=== PATIENT | female | born 1955 | race Caucasian/White ===

== ENCOUNTER → 2017-08-17 | Outpatient (CLI) | payer OTHER ==
[~2017-08-17] MED LIST: ATEN-173 PO; ATV/1 PO; CALCTAB5 PO; CHOL100010 PO; MULT-506 PO; OMEP40CA PO; SERT-234 PO
--- NOTE | 2017-08-18 13:28 | MAMMOGRAPHY REPORT ---
BILATERAL DIGITAL SCREENING MAMMOGRAM TOMOSYNTHESIS WITH CAD: 08/17/2017 CLINICAL HISTORY: Routine screening. Patient has no complaints. TECHNIQUE: Breast tomosynthesis in addition to standard 2D mammography was performed. Current study was also evaluated with a Computer Aided Detection (CAD) system. COMPARISON: Comparison is made to exams dated: 11/16/2014 mammogram, 04/29/2012 mammogram, 11/01/2010 m ammogram - [facility], 10/27/2008, 07/28/2006, and 09/11/1999 mammogram - [facility]. BREAST COMPOSITION: The tissue of both breasts is heterogeneously dense, which may obscure small mas ses. FINDINGS: There is a small grouping of microcalcifications with associated nodularity in the 11:00 m iddle one third of the right breast, for which additional spot magnification views and possible ultra sound is recommended. An 11 mm focal asymmetry in the upper outer posterior right breast is stable dating back to at least 10/27/2008, therefore likely benign. No other suspicious mass, architectural distortion or cluster of microcalcifications is seen. IMPRESSION: ACR BI-RADS CATEGORY 0: INCOMPLETE EVALUATION: NEED ADDITIONAL IMAGING EVALUATION The small grouping of microcalcifications and associated nodularity in the 11:00 middle one third of the right breast needs additional imaging evaluation. The patient will be called to schedule an appointment. Approximately 10% of breast cancers are not detected with mammography. A negative mammographic report should not delay biopsy if a clinically suggestive mass is present. Tasha De Souza M.D. ay/:08/17/2017 16:43:46 Dental Assisting Instructor: Hannah ROSEN(Simran)(M), [facility] letter sent: Addl Imaging 0 BI-RADS Code: ACR BI-RADS Category 0: Incomplete Evaluation: Need Additional Imaging Evaluation
== END | disposition home or self-care (01) ==
LOC: C.MAMM 14:54
PROVIDERS: ATTEND Family Medicine
DX: Z12.31 Encounter for screening mammogram for malignant neoplasm of breast (principal); R92.0 Mammographic microcalcification found on diagnostic imaging of breast; N63.11 Unspecified lump in the right breast, upper outer quadrant

== ENCOUNTER → 2017-08-25 | Outpatient (CLI) | payer OTHER ==
--- NOTE | 2017-08-26 15:25 | MAMMOGRAPHY REPORT ---
UNILATERAL RIGHT DIGITAL DIAGNOSTIC MAMMOGRAM AND TARGETED RIGHT ULTRASOUND: 08/25/2017 CLINICAL HISTORY: 62-year-old woman called back from screening mammography for a small grouping of mi crocalcifications and associated nodularity in the 12:00 right breast. TECHNIQUE: Spot magnification right CC and ML views were obtained. COMPARISON: Comparison is made to exams dated: 08/17/2017 mammogram, 11/16/2014 mammogram, 04/29/2012 ma mmogram, 11/01/2010 mammogram, 06/27/2009 mammogram - [facility], and 11/16/2008. BREAST COMPOSITION: There are scattered areas of fibroglandular density in the right breast. FINDINGS: There is a circumscribed 3.5 mm round mass with associated grouped amorphous microcalcific ations along the inferolateral aspect of the mass. No architectural distortion appreciated. The sara rocalcifications are new comparing to the most recent prior available mammogram which was performed i 2014. No other suspicious grouping or cluster of calcifications identified in the visualized right breast. Further evaluation with ultrasound was performed. Targeted ultrasound was performed in the superior right breast. In the 11:30 axis, 2 cm from the nip ple, there is a round circumscribed hypoechoic solid versus cystic mass with internal punctate reflec tors most likely representing microcalcifications. It measures 3.7 mm in diameter and this is though t to correlate with the mammographic mass with calcifications. Definitive characterization with an u ltrasound-guided core needle biopsy is recommended. No other suspicious mass, architectural distortion or cluster of microcalcifications is seen. IMPRESSION: ACR BI-RADS CATEGORY 4: SUSPICIOUS, TARGETED ULTRASOUND ACR BI-RADS CATEGORY 4: SUSPICIO US 1. Ultrasound-guided core needle biopsy is recommended for a small round 3.7 mm mass with associated grouped amorphous microcalcification in the 11:30 right breast, 2 cm from the nipple. This correlat es with the mammographic calcifications and associated nodularity. These results and recommendations were discussed with the patient at the time of the exam. She tenta tively scheduled a biopsy prior to leaving our department. Approximately 10% of breast cancers are not detected with mammography. A negative mammographic report should not delay biopsy if a clinically suggestive mass is present. Tasha De Souza M.D. ay/:08/25/2017 14:32:15 Boat Officer: Hannah Araiza, [facility] letter sent: Abnormal 10/15 BI-RADS Code: ACR BI-RADS Category 4: Suspicious Ultrasound BI-RADS: ACR BI-RADS Category 4: Suspici ous
== END | disposition home or self-care (01) ==
LOC: C.MAMM 13:56
PROVIDERS: ATTEND Family Medicine
DX: R92.0 Mammographic microcalcification found on diagnostic imaging of breast (principal); N63.10 Unspecified lump in the right breast, unspecified quadrant

== ENCOUNTER → 2017-09-17 | Outpatient (CLI) | payer OTHER ==
--- NOTE | 2017-09-17 11:28 | Discharge Instructions ---
Discharge Instructions Procedure Procedure Date: Sep 17, 2017. Reason for visit: Right Mass W/Calcs. Discharge Discharge Date: Sep 17, 2017. Discharge Diagnosis: status post breast biopsy Instructions Activity Recommendations: Additional Limitations (see below) Return to School/Work: no limitations Recommended Home Diet: No Limitations Provider Instructions: ACTIVITY RECOMMENDATIONS: * No lifting, pushing, pulling or exercising the affected side for three days. RETURN TO SCHOOL/WORK: * You may return to work/school after the procedure, but do not perform any strenuous activities for 24 to 48 hours. MEDICATIONS: * Tylenol (two 325 mg) every four to six hours if needed for mild pain (if not allergic to Tylenol). DIET: * Resume previous diet. SPECIAL CARE INSTRUCTIONS: * Keep biopsy site dry for 24 hours. May shower after 24 hours, but do not soak (bathe) incision. * May remove Tegaderm (plastic patch) tomorrow AFTER showering. * Leave the steri-strips on for one week. Allow the steri-strips to fall off by themselves. If not off after one week, you may remove them. You may place a Bandaid crosswise over the strips, if desired. * Apply ice 10 minutes on and 10 minutes off as needed. * Wear a bra at bedtime to sleep more comfortably for 2-3 days. * Your referring physician should have the results after approximately 5 to 7 business days. * Call for unusual bleeding, fever, drainage, etc or if you have any questions call during normal business hours or after hours call Dr Mckeon, . FOLLOW UP VISIT: Follow-up with Referring Physician as scheduled. Allergies Coded Allergies: No Known Allergies (Unverified , 11/15/15) Mukul Neff Recommendations: Call your doctor if: * Temperature above 101 degrees * Pain not relieved by pain medicine ordered * There is increased drainage or redness from any incision * You have any unanswered questions or concerns. Your Doctors Instructions noted above were prepared by provider Lucy Mckeon. Patient Signature Section: Patient Instructions Signature Page Malika Gregory Patient (or Guardian) Signature/Date: I have read and understand the instructions given to me by my caregivers. Caregiver/RN/Doctor Signature/Date: The above-named patient and/or guardian has received patient instructions on this date. + Original Patient Signature Page (only) stays with chart. Please make copy for patient.
--- NOTE | 2017-09-17 15:06 | MAMMOGRAPHY REPORT ---
ULTRASOUND GUIDED BIOPSY RIGHT BREAST: 09/17/2017 CLINICAL HISTORY: Right 1130 breast mass with associated calcifications. PATIENT CONSENT: The procedure, risks and benefits were discussed with the patient and informed writt en consent was obtained. A timeout was performed immediately prior to the procedure. PROCEDURE DESCRIPTION: With ultrasound guidance, aseptic technique, and lidocaine as the local anesth etic (1% lidocaine to anesthetize the skin and 1% lidocaine with epinephrine to anesthetize the deepe r tissues), an attempt was made to aspirate the mass in the right 1130 breast. However, it would not completely aspirate, therefore, the decision was made to biopsy the mass. With ultrasound guidance, the mass of concern in the right 11:30 breast was sampled 3 times with a 14-gauge Achieve biopsy need le. Immediately thereafter, with ultrasound guidance, aseptic technique, and lidocaine as the local a nesthetic, a metallic localizer clip was placed at the biopsy site. Direct pressure was applied to t he site immediately post procedure and hemostasis was achieved. Postprocedure unilateral mammograms were performed to confirm placement of the clip in the expected location of the breast mass. The braxton ent tolerated the procedure without complication. She was given wound care instructions. A radiogra ph was performed of the biopsy specimens, which shows a few calcifications to be present within the s pecimens. The specimens were sent to pathology for analysis. COMPARISON: Comparison is made to exams dated: 08/25/2017 ultrasound, 08/17/2017 mammogram, 11/16/2014 ma mmogram, and 04/29/2012 mammogram - [facility]. IMPRESSION: ULTRASOUND GUIDED BIOPSY Ultrasound-guided core needle biopsy of the right 1130 breast mass with associated calcifications, wi th clip placement. The patient will receive pathology results from her referring provider. Lucy Mckeon M.D. /:09/17/2017 11:32:03 Practice Assistant: Hannah MACHADO)(M), [facility]
--- NOTE | 2017-09-17 15:06 | MAMMOGRAPHY REPORT ---
UNILATERAL RIGHT DIGITAL DIAGNOSTIC MAMMOGRAM TOMOSYNTHESIS: 09/17/2017 CLINICAL HISTORY: Status post right breast biopsy. TECHNIQUE: Breast tomosynthesis in addition to standard 2D mammography was performed. Postprocedura l right CC and ML tomosynthesis images were obtained. COMPARISON: Comparison is made to exams dated: 08/25/2017 mammogram, 08/25/2017 ultrasound, 08/17/2017 m ammogram, 11/16/2014 mammogram, 04/29/2012 mammogram, and 11/01/2010 mammogram - [facility]. BREAST COMPOSITION: There are scattered areas of fibroglandular density in the right breast. FINDINGS: A new biopsy marker clip is seen at the site of the biopsied mass and calcifications in the right 12:00 breast. No significant postbiopsy hematoma is seen. IMPRESSION: POST PROCEDURE IMAGING FOR MARKER PLACEMENT New biopsy marker clip status post right breast biopsy. Pathology results are pending. Approximately 10% of breast cancers are not detected with mammography. A negative mammographic report should not delay biopsy if a clinically suggestive mass is present. Lucy Mckeon M.D. ah/:09/17/2017 11:41:21 Lifestyle Director: Hannah Romero RT(R)(M), [facility] BI-RADS Code: Post Procedure Imaging For Marker Placement
== END | disposition home or self-care (01) ==
LOC: C.MAMM 10:50
PROVIDERS: ATTEND Family Medicine
DX: R92.0 Mammographic microcalcification found on diagnostic imaging of breast (principal); N63.10 Unspecified lump in the right breast, unspecified quadrant

== ENCOUNTER → 2017-11-20 | Day surgery (SDC) | payer OTHER ==
[2017-11-17 15:59] VITALS: Ht 162.6 cm; Wt 70.5 kg
[~2017-11-20] VITALS: Ht 162.6 cm; Wt 70.5 kg
[~2017-11-20] MED LIST changes: +CALC600T9 PO; -CALCTAB5 PO; +CHOL1000 PO; -CHOL100010 PO; +DEXAMETHASONE SOD INJ 4 MG/ML VIAL ONE; +IBUP-1050 PO; +LIDOCAINE HCL 1% MPF 5 ML VIAL ONE; +OMEP-334 PO; -OMEP40CA PO; +RANI300T2 PO; -SERT-234 PO
--- NOTE | 2017-11-20 07:29 | History & Physical Bridge - SC ---
H&P Re-Evaluation Bridge Note: I have examined the patient, reviewed the History & Physical and in the interval since the performance of the History & Physical I have noted the following changes of clinical significance: No changes noted
--- NOTE | 2017-11-20 07:54 | [facility] Post Operative Brief Note ---
Immediate Operative Summary Operative Date November 20, 2017. Pre-Operative Diagnosis SPINAL STENOSIS Post-Operative Diagnosis SPINAL STENOSIS Procedure(s) Performed L2-3, L3-[address] LAKHANI Inspector Purchased Parts Surgeon(s) none Estimated Blood Loss 0 Findings Consistent with Post-Op Diagnosis Specimens none Anesthesia Type Local Complication(s) none
[2017-11-20 07:56] VITALS: TEMP 36.8
--- NOTE | 2017-11-20 07:56 | Discharge Instructions ---
Discharge Instructions Date of Service November 20, 2017. Admission Reason for Admission: Spinal Stenosis Discharge Discharge Diagnosis / Problem: stenosis Discharge Goals Goal(s): Improve function Activity Recommendations Activity Limitations: resume your previous activity . Current Hospital Diet Patient's current hospital diet: Discharge Diet Recommended Diet: Regular Diet Procedures Procedures Performed: L2-3, L3-4 EPIDURAL STEROID INJECTION Pending Studies Studies pending at discharge: no Medical Emergencies . Who to Call and When: Medical Emergencies: If at any time you feel your situation is an emergency, please call 911 immediately. . Non-Emergent Contact Non-Emergency issues call your: Primary Care Provider . "Provider Documentation" section prepared by Matthew Hensley. .
--- NOTE | 2017-11-20 07:57 | Discharge Instructions-SurgCtr ---
Discharge Instructions Date of Service November 20, 2017. Visit Reason for Visit: Spinal Stenosis Discharge Discharge Diagnosis / Problem: same Discharge Goals Goal(s): Improve function Medications Stopped Medications Name(s): Ibuprofen, last dose 11/19/17 Activity Recommendations Activity Limitations: as noted below Lifting Limitations: until after follow-up appointment Exercise/Sports Limitations: until after follow-up appointment Anesthesia . Post Anesthesia Instructions: If you have had General Anesthesia or IV Sedation: * Do not drive today. * Resume driving when surgeon permits. * Do not make important decisions or sign legal documents today. * Call surgeon for: 1. Temperature elevations greater than 101 degrees F. 2. Uncontrollable pain. 3. Excessive bleeding. 4. Persistent nausea and vomiting. 5. Medication intolerance (nausea, vomiting or rash). * For nausea and vomiting use only clear liquids such as: tea, soda, bouillon until nausea subsides, then gradually increase diet as tolerated. * If you have any concerns or questions, call your surgeon's office. If physician is unavailable and it is an emergency, call 911 or go to the nearest emergency room. . Diet Recommendations Home Diet: no limitations Procedures Procedures Performed: L2-3, L3-4 EPIDURAL STEROID INJECTION Pending Studies Studies pending at discharge: no Medical Emergencies . Who to Call and When: Medical Emergencies: If at any time you feel your situation is an emergency, please call 911 immediately. . Non-Emergent Contact Non-Emergency issues call your: Primary Care Provider . . "Provider Documentation" section prepared by Matthew Hensley. .
[2017-11-20 08:19] VITALS: BP 134/84; PULSE 73; O2SAT 95
--- NOTE | 2017-11-20 08:35 | OPERATIVE REPORT ---
DATE OF OPERATION: 11/20/2017 PREOPERATIVE DIAGNOSIS: Spinal stenosis, L2-L3, L3-L4, lumbar. POSTOPERATIVE DIAGNOSIS: Same. PROCEDURE: Included epidural steroid, L3-L4, L4-L5, lumbar. SURGEON: Matthew Hensley DO. COMPLICATIONS: Zero. BLOOD LOSS: Zero. DESCRIPTION OF PROCEDURE: The patient was taken to the minor procedure room, placed prone, prepped and draped sterilely. A 22-gauge spinal Tuohy needle advanced to the epidural space at L2-L3, L3-L4, use a volume acceptance technique. 1 mL of dexamethasone injected to each level without incident. There were no complications. I attest to the content of the Intraoperative Record and any orders documented therein. Any exception s are noted below.
== END | disposition home or self-care (01) ==
LOC: X.SURG 06:31
PROVIDERS: ATTEND Orthopaedic Surgery Orthopaedic Surgery of the Spine
DX: M48.061 Spinal stenosis, lumbar region without neurogenic claudication (principal); E78.00 Pure hypercholesterolemia, unspecified; I10 Essential (primary) hypertension; K76.0 Fatty (change of) liver, not elsewhere classified; F17.200 Nicotine dependence, unspecified, uncomplicated

== ENCOUNTER 2020-01-24 16:36 | Inpatient (IN) ==
--- OUTSIDE RECORDS SUMMARY | 2020-01-24 16:39 | External Medical Summary | Continuity of Care Document ---
:1955 Author Name Vincent Lutz, Provider Address Unavailable Unavailable , Care Team Providers Name Role Phone Unavailable Unavailable Unavailable PCP, UNKNOWN Unavailable Unavailable Problems Active medical history not documented Allergies and Adverse Reactions Allergy history not documented Medications Medications not documented Procedures Procedures not documented Immunizations Immunizations not documented Plan of Treatment Planned Observations Planned Goals not documented Results No Known Results Results not documented
[2020-01-24] MEDS ORDERED: SODIUM CHLORIDE 0.9% 1000ML 1,000 ML IV SCH ×2 (18:15→19:08)
[2020-01-24] MEDS ORDERED: ACETAMINOPHEN 1,000 MG/100 ML VIAL IV STA (18:24)
--- NOTE | 2020-01-24 18:31 | Emergency Department Note ---
History of Present Illness General Chief complaint: Fever Stated complaint: SPIKING FEVER, ONGOING BLADDER ISSUES Time Seen by Provider: 01/24/20 18:06 History of Present Illness Provider complaint: Fever, cough, polyuria Onset (ago): hour(s) greater than 10 (Last night at 10 PM) Maximum Pain Intensity: 0 Current Pain Intensity: 0 Associated symptoms: + cough and + fever/chills 64-year-old female presents emergency department with fever. She reports she spiked a fever of 104 last night at 10 PM. She states that she has been having feelings of having to go urinate more often than normal. She denies any dysuria. She does report having a cough, but she states she smokes and she thinks it is her smoker's cough. She denies any loss of taste or smell. She denies any recent travel. Denies any headaches or neck pain. No abdominal sumit n. Patient is requesting to be tested for COVID-19. Patient states she had her last drink yesterday evening. Home Medications Home Medications Medication Instructions Recorded Confirmed Type atenolol 12.5 mg PO HS 04/02/18 01/24/20 History calcium carbonate-vitamin D3 1 tab PO HS 04/02/18 01/24/20 History cholecalciferol (vitamin D3) 1,000 units PO Q2D 04/02/18 01/24/20 History [Vitamin D3] lorazepam 0.5 - 1 mg PO TID PRN 04/02/18 01/24/20 History folic acid 1 mg PO DAILY #30 tab 04/13/18 01/24/20 Rx multivitamin 1 tab PO DAILY #30 tab 04/13/18 01/24/20 Rx thiamine HCl (vitamin B1) 100 mg PO DAILY #30 tab 04/13/18 01/24/20 Rx Rosacea Cream 1 applic TOPICAL DIRECTED 01/24/20 01/24/20 History albuterol sulfate 2 puff INHALATION DIRECTED PRN 01/24/20 01/24/20 History ibuprofen 200 mg PO Q6H PRN 01/24/20 01/24/20 History magnesium 125 mg PO DAILY 01/24/20 01/24/20 History Allergies Allergy/AdvReac Type Severity Reaction Status Date / Time No Known Allergies Allergy Verified 01/24/20 19:55 Past Med/Surg History Medical History AA (alcohol abuse) (Chronic) Alcohol use (Chronic) Anxiety (Chronic) Depression (Chronic) Diverticulosis of colon (Chronic) Fatty liver (Chronic) GERD (gastroesophageal reflux disease) (Chronic) Hx of ectopic Hyperlipidemia (Chronic) Hypertension (Chronic) Hypokalemia (Acute) Respiratory failure, acute Tobacco abuse (Chronic) Transaminitis (Resolved) Surgical History H/O wisdom tooth extraction (Chronic) H/O: (Chronic) History of oophorectomy, unilateral (Chronic) Hx of eye surgery Family History Other No significant family history Social History Preferred Language: Maldivian Communication Ability: Effective 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 Beliefs That Will Affect Care: None marital status: Single Current Living Situation: Alone Feels Safe at Home: Yes Smoking Status: Current every day smoker Tobacco Type: cigarettes ; Cigarettes Per Day: 20 ; Hx Alcohol Use: Yes Alcohol type: wine Hx Substance Use: No Review of Systems A total of 10 systems reviewed and were otherwise negative Physical Exam Vital Signs Vital Signs - 24 hr 01/24/20 16:45 01/24/20 18:40 01/24/20 19:14 Temperature 38 C H Temperature Source Oral Pulse Rate 120 H 106 H 105 H Pulse Rate [Left Finger] 104 H Pulse Rate from SpO2 Sensor 110 H Respiratory Rate 18 27 H 24 Respiratory Depth Normal Blood Pressure 106/67 90/69 L 115/67 Blood Pressure [Left Arm] 90/69 L Blood Pressure Mean 80 83 73 Blood Pressure Mean [Left Arm] 76 Pulse Oximetry 93 98 95 Oxygen Delivery Method Room Air Room Air Sepsis Recent Fever Within 48 Hours Yes Sepsis New/Unexplained Change in Mental Status No Sepsis Action Taken by Nursing No Action Required 01/24/20 19:32 01/24/20 19:51 01/24/20 20:00 Temperature 37.6 C H Temperature Source Oral Pulse Rate 115 H 108 H Pulse Rate [Left Finger] Pulse Rate from SpO2 Sensor 110 H 97 H Respiratory Rate 22 24 Respiratory Depth Blood Pressure 111/61 100/58 L Blood Pressure [Left Arm] Blood Pressure Mean 77 63 Blood Pressure Mean [Left Arm] Pulse Oximetry 95 93 Oxygen Delivery Method Room Air Room Air Sepsis Recent Fever Within 48 Hours Sepsis New/Unexplained Change in Mental Status Sepsis Action Taken by Nursing 01/24/20 20:10 Temperature Temperature Source Pulse Rate 105 H Pulse Rate [Left Finger] Pulse Rate from SpO2 Sensor 93 H Respiratory Rate 25 H Respiratory Depth Blood Pressure 106/61 Blood Pressure [Left Arm] Blood Pressure Mean 72 Blood Pressure Mean [Left Arm] Pulse Oximetry 93 Oxygen Delivery Method Room Air Sepsis Recent Fever Within 48 Hours Sepsis New/Unexplained Change in Mental Status Sepsis Action Taken by Nursing Physical Exam GENERAL: She is oriented to person, place, and time. She appears well-developed and well-nourished. She does not appear distressed. HENT: Exam performed. -Head: Normocephalic and atraumatic. -Right Ear: External ear normal. No mastoid tenderness. -Left Ear: External ear normal. No mastoid tenderness. -Mouth/Throat: The oropharynx is clear and moist. No trismus in the jaw. No dental abscesses or uvula swelling. No oropharyngeal exudate or tonsillar abscesses. EYES: Conjunctivae and EOM are normal. Pupils are equal, round, and reactive to light. Right eye exhibits no discharge. Left eye exhibits no discharge. No scleral icterus. NECK: Normal range of motion. Neck supple. No JVD present. No spinous process tenderness present. No carotid bruit present. No rigidity. No tracheal deviation and normal range of motion present. No Brudzinski's sign and no Kernig's sign noted. CV: Tachycardic rate, regular rhythm, normal heart sounds and intact distal pulses. There is no peripheral edema. Palpable radial pulses bue. PULM/CHEST: Effort normal and breath sounds normal. No respiratory distress. No stridor. She has no wheezes. She has no rales. -Chest Wall: She exhibits no tenderness. ABD: The abdomen is soft. Bowel sounds are normal. She has no distension. No mass is present. There is tenderness to palpation of the suprapubic area. There is no rebound, no guarding, no Fletcher's sign and no tenderness at McBurney's point. Rovsig negative MUSC/SKEL: Normal range of motion. There is no peripheral edema, tenderness or deformity. LYMPH: No cervical adenopathy. NEURO: She is alert and oriented to person, place, and time. She has normal strength. No cranial nerve deficit or sensory deficit. Coordination and gait normal. GCS eye subscore is 4. GCS verbal subscore is 5. GCS motor subscore is 6. Cerebellar tests wnl. SKIN: Skin is warm and dry. She is not diaphoretic. PSYCH: She has a normal mood and affect. Behavior is normal. Judgment and thought content normal. Course Course 1800: The patient was evaluated in room C10. A complete history and physical exam was performed. Cardiac monitoring: An order was placed for continuous cardiac monitoring. The monitor shows a rate of 110 with sinus rhythm Patient was seen with face montgomery, gloves, and N95. Patient placed in airborne precautions. EMR reviewed. Patient has a history of alcoholism, she states her last drink was last night. 2023: Vital signs stable status post 2 L fluid bolus and IV Tylenol. Labs show leukocytosis of 23.4. Neutrophils. Lactic acid within normal limits. Total bilirubin at baseline. AST at baseline. Procalcitonin elevated at 1.14. Urinalysis negative. Rapid bio fire test negative. Imaging shows no pneumonia. It does show acute on chronic diverticulitis. Patient will be treated with IV antibiotics Rocephin and Flagyl and plan on admission for her diverticulitis. Patient did have a COVID-19 swab sent however lab said they could not run a rapid on the patient giving her COVID score being less than 10. COVID PUI form was filled out by me so could be faxed over for send out testing. [facility]. Administered Medications Discontinued Medications Sodium Chloride (Nss 1000ml) 1,000 mls @ 999 mls/hr IV .Q1H1M FELIX Stop: 01/24/20 19:08 Last Infusion: 01/24/20 19:36 Dose: 0 mls/hr Documented by: [id number] Admin: 01/24/20 18:35 Dose: 999 mls/hr Documented by: [id number] Sodium Chloride (Nss 1000ml) 1,000 mls @ 999 mls/hr IV .Q1H1M FELIX Stop: 01/24/20 20:07 Last Infusion: 01/24/20 19:45 Dose: 0 mls/hr Documented by: [id number] Admin: 01/24/20 18:45 Dose: 999 mls/hr Documented by: [id number] Acetaminophen (Ofirmev) 1,000 mg in 100 mls @ 400 mls/hr IV NOW STA Stop: 01/24/20 18:38 Last Infusion: 01/24/20 19:02 Dose: 0 mls/hr Documented by: [id number] Admin: 01/24/20 18:47 Dose: 400 mls/hr Documented by: [id number] Medical Decision Making Laboratory Data Result diagrams: 01/24/20 18:24 01/24/20 18:24 Lab Results 01/24/20 01/24/20 01/24/20 Range/Units 18:24 18:24 18:24 WBC 23.44 H (4.8-10.8) K/uL RBC 4.05 L (4.2-5.4) M/uL Hgb 14.8 (12.0-16.0) g/dL Hct 43.5 (37-47) % MCV 107.4 H (80-100) fL MCH 36.5 H (25-34) pg MCHC 34.0 (32-36) g/dL RDW Std Deviation 50.2 H (36.4-46.3) fL RDW Coeff of Vale 12.7 (11.5-14.5) % Plt Count 145 (130-400) K/uL MPV 11.5 H (7.4-10.4) fL Immature Gran % (Auto) 0.6 % Neut % (Auto) 90.9 % Lymph % (Auto) 2.7 % Garrard % (Auto) 5.7 % Eos % (Auto) 0.0 % Baso % (Auto) 0.1 % Neut # (Auto) 21.31 H (1.4-6.5) K/uL Lymph # (Auto) 0.64 L (1.2-3.4) K/uL Garrard # (Auto) 1.33 H (0.11-0.59) K/uL Eos # (Auto) 0.00 (0-0.5) K/uL Baso # (Auto) 0.02 (0-0.2) K/uL Immature Gran # (Auto) 0.14 H (0.00-0.02) K/uL Sodium 138 (136-145) mmol/L Potassium 3.9 (3.5-5.1) mmol/L Chloride 104 (98-107) mmol/L Carbon Dioxide 26 (21-32) mmol/L Anion Gap 8.0 (3-11) BUN 20 H (7-18) mg/dl Creatinine 1.28 H (0.6-1.2) mg/dl Est Cr Clr Drug Dosing 41.6 ml/min Est GFR ( Amer) 50.4 Est GFR (Non-Af Amer) 43.5 BUN/Creatinine Ratio 15.7 (10-20) Glucose 155 H (70-99) mg/dl Lactate 1.4 (0.4-2.0) mmol/L Calcium 8.6 (8.5-10.1) mg/dl Magnesium 1.7 L (1.8-2.4) mg/dl Total Bilirubin 2.2 H (0.2-1) mg/dl AST 60 H (15-37) U/L ALT 67 (12-78) U/L Alkaline Phosphatase 138 H (45-117) U/L Troponin I < 0.015 (0-0.045) ng/ml Total Protein 8.2 (6.4-8.2) gm/dl Albumin 3.4 (3.4-5.0) gm/dl Globulin 4.8 H (2.5-4.0) gm/dl Albumin/Globulin Ratio 0.7 L (0.9-2) Procalcitonin (0-0.5) ng/ml Urine Color Urine Appearance (Clear) Urine pH (4.5-7.5) Ur Specific [place] (1.000-1.030) Urine Protein (Negative) Urine Glucose (UA) (Negative) Urine Ketones (Negative) Urine Blood (Negative) Urine Nitrite (Negative) Urine Bilirubin (Negative) Urine Urobilinogen (Negative) Ur Leukocyte Esterase (Negative) Adenovirus (PCR) (NotDetected) B. pertussis DNA (PCR) (NotDetected) B.parapertussis DNA PCR (NotDetected) C. pneumoniae DNA (PCR) (NotDetected) Coronavirus OC43 (PCR) (NotDetected) Coronavirus HKU1 (PCR) (NotDetected) Coronavirus 229E (PCR) (NotDetected) Coronavirus NL63 (PCR) (NotDetected) Human Metapneumovir PCR (NotDetected) Influenza Type A (PCR) (NotDetected) Influenza Type B (PCR) (NotDetected) M. pneumoniae (PCR) (NotDetected) Parainfluenza 1 (PCR) (NotDetected) Parainfluenza 2 (PCR) (NotDetected) Parainfluenza 3 (PCR) (NotDetected) Parainfluenza 4 (PCR) (NotDetected) RSV (PCR) (NotDetected) Entero/Rhino (PCR) (NotDetected) 01/24/20 01/24/20 01/24/20 Range/Units 18:24 18:49 19:52 WBC (4.8-10.8) K/uL RBC (4.2-5.4) M/uL Hgb (12.0-16.0) g/dL Hct (37-47) % MCV (80-100) fL MCH (25-34) pg MCHC (32-36) g/dL RDW Std Deviation (36.4-46.3) fL RDW Coeff of Vale (11.5-14.5) % Plt Count (130-400) K/uL MPV (7.4-10.4) fL Immature Gran % (Auto) % Neut % (Auto) % Lymph % (Auto) % Garrard % (Auto) % Eos % (Auto) % Baso % (Auto) % Neut # (Auto) (1.4-6.5) K/uL Lymph # (Auto) (1.2-3.4) K/uL Garrard # (Auto) (0.11-0.59) K/uL Eos # (Auto) (0-0.5) K/uL Baso # (Auto) (0-0.2) K/uL Immature Gran # (Auto) (0.00-0.02) K/uL Sodium (136-145) mmol/L Potassium (3.5-5.1) mmol/L Chloride (98-107) mmol/L Carbon Dioxide (21-32) mmol/L Anion Gap (3-11) BUN (7-18) mg/dl Creatinine (0.6-1.2) mg/dl Est Cr Clr Drug Dosing ml/min Est GFR ( Amer) Est GFR (Non-Af Amer) BUN/Creatinine Ratio (10-20) Glucose (70-99) mg/dl Lactate (0.4-2.0) mmol/L Calcium (8.5-10.1) mg/dl Magnesium (1.8-2.4) mg/dl Total Bilirubin (0.2-1) mg/dl AST (15-37) U/L ALT (12-78) U/L Alkaline Phosphatase (45-117) U/L Troponin I (0-0.045) ng/ml Total Protein (6.4-8.2) gm/dl Albumin (3.4-5.0) gm/dl Globulin (2.5-4.0) gm/dl Albumin/Globulin Ratio (0.9-2) Procalcitonin 1.14 H (0-0.5) ng/ml Urine Color Yellow Urine Appearance Clear (Clear) Urine pH 6.5 (4.5-7.5) Ur Specific [place] 1.005 (1.000-1.030) Urine Protein Negative (Negative) Urine Glucose (UA) Negative (Negative) Urine Ketones Negative (Negative) Urine Blood Negative (Negative) Urine Nitrite Negative (Negative) Urine Bilirubin Negative (Negative) Urine Urobilinogen Negative (Negative) Ur Leukocyte Esterase Negative (Negative) Adenovirus (PCR) Not Detected (NotDetected) B. pertussis DNA (PCR) Not Detected (NotDetected) B.parapertussis DNA PCR Not Detected (NotDetected) C. pneumoniae DNA (PCR) Not Detected (NotDetected) Coronavirus OC43 (PCR) Not Detected (NotDetected) Coronavirus HKU1 (PCR) Not Detected (NotDetected) Coronavirus 229E (PCR) Not Detected (NotDetected) Coronavirus NL63 (PCR) Not Detected (NotDetected) Human Metapneumovir PCR Not Detected (NotDetected) Influenza Type A (PCR) Not Detected (NotDetected) Influenza Type B (PCR) Not Detected (NotDetected) M. pneumoniae (PCR) Not Detected (NotDetected) Parainfluenza 1 (PCR) Not Detected (NotDetected) Parainfluenza 2 (PCR) Not Detected (NotDetected) Parainfluenza 3 (PCR) Not Detected (NotDetected) Parainfluenza 4 (PCR) Not Detected (NotDetected) RSV (PCR) Not Detected (NotDetected) Entero/Rhino (PCR) Not Detected (NotDetected) Imaging Data Radiologist's Impression: ABDOMEN AND PELVIS CT WITHOUT CONTRAST CT DOSE: 859.98 mGycm HISTORY: polyuria febrile TECHNIQUE: Multiaxial CT images of the abdomen and pelvis were performed without contrast. A dose lowering technique was utilized adhering to the principles of ALARA. COMPARISON STUDY: Abdomen and pelvis CT 04/01/2018. FINDINGS: Mild interstitial thickening at the lung bases. No pneumoperitoneum. No pneumatosis. No suspicious lytic or blastic osseous lesions. There is a new 3.8 cm hypodense lesion within the right hepatic dome. This is incompletely characterized on this noncontrast study. The unenhanced spleen, adrenal glands, pancreas, and gallbladder are unremarkable. No renal stones or hydronephrosis. Mild to moderate bilateral cortical renal scarring remains unchanged. Stable 3.3 cm hypodense lesion within the lower pole of the right kidney. This favors a cyst. Normal bladder. No pelvic free fluid. Abnormal appearance to the mid sigmoid colon which demonstrates mild thickening. Multiple colonic diverticula and minimal pericolonic fat stranding. This raises the possibility of an acute on chronic diverticulitis. However, an underlying colonic mass cannot be excluded. No change in the 4.7 cm cystic focus within the left adnexa. Small lipoma within the proximal sigmoid colon best in image 242. There is an larissa tional site of mild pericolonic fat stranding at the distal descending colon image 211. This may represent an additional site of mild acute diverticulitis. No evidence for bowel obstruction. No retroperitoneal lymphadenopathy. A few prominent ileocolic lymph nodes versus vascular structures best seen on image 199. This is improved in the interval. 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 This is best seen on image 220. IMPRESSION: 1. Abnormal appearance to the mid sigmoid colon which demonstrates mild wall thickening and minimal pericolonic fat stranding. Given the multiple colonic diverticula, this raises the possibility of an acute on chronic diverticulitis. However, an underlying colonic mass could also a similar appearance. Therefore, endoscopy is recommended for further evaluation. 2. Mild pericolonic fat stranding at the distal descending colon which may represent an additional site of mild acute diverticulitis. 3. There is a new 3.8 cm hypodense lesion within the right hepatic dome. This is incompletely characterized on this noncontrast study. Dedicated contrast- enhanced MRI is recommended to exclude the possibility of a hepatic metastatic lesion or abscess. 4. No change in the 4.7 cm cystic focus within the left adnexa. 5. 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 ACT 112: Negative or not required by law. Electronically signed by: Ray Galvan M.D. 01/24/2020 8:04 PM Dictated: 01/24/201945 Transcribed: 01/24/201945 XR chest 1V portable HISTORY: SEPSIS COMPARISON: Chest 04/04/2018. FINDINGS: The heart is normal in size. No pleural effusions. No pneumothorax. Mild diffuse interstitial thickening which is likely chronic. No new focal lung consolidations to suggest pneumonia. IMPRESSION: No significant change compared to the prior study. No acute process. ACT 112: Negative or not required by law. Electronically signed by: Ray Galvan M.D. 01/24/2020 7:35 PM Dictated: 01/24/201933 Transcribed: 01/24/201933 ECG Data Indication: + other (Fever/sepsis) Rate (beats per minute): 115 ECG Intervals/blocks: + Normal QRS, + Normal AL and + Normal QT-c ECG ST segments: + Normal ST segments MDM Narrative 1800: The patient was evaluated in room C10. A complete history and physical exam was performed. Cardiac monitoring: An order was placed for continuous cardiac monitoring. The monitor shows a rate of 110 with sinus rhythm Patient was seen with face montgomery, gloves, and N95. Patient placed in airborne precautions. EMR reviewed. Patient has a history of alcoholism, she states her last drink was last night. 2023: Vital signs stable status post 2 L fluid bolus and IV Tylenol. Labs show leukocytosis of 23.4. Neutrophils. Lactic acid within normal limits. Total bilirubin at baseline. AST at baseline. Procalcitonin elevated at 1.14. Urinalysis negative. Rapid bio fire test negative. Imaging shows no pneumonia. It does show acute on chronic diverticulitis. Patient will be treated with IV antibiotics Rocephin and Flagyl and plan on admission for her diverticulitis. Patient did have a COVID-19 swab sent however lab said they could not run a rapid on the patient giving her COVID score being less than 10. COVID PUI form was filled out by me so could be faxed over for send out testing. Dr. Leigh Fang hospitalist notified about the patient. Impression & Plan Diverticulitis Discharge Plan Visit Data Chief Complaint: Fever Stated Complaint: SPIKING FEVER, ONGOING BLADDER ISSUES ED Provider: Thom Chambers Discharge Problem: Diverticulitis Patient Disposition: Being Evaluated by Hospitalist Forms Stand Alone Forms: My [facility] Prescriptions Prescriptions: No Action atenolol 25 mg Tablet 12.5 mg PO HS RF: 0 lorazepam 1 mg Tablet 0.5 - 1 mg PO TID PRN (Reason: Anxiety) RF: 0 cholecalciferol (vitamin D3) [Vitamin D3] 1,000 unit Capsule 1,000 units PO Q2D RF: 0 calcium carbonate-vitamin D3 600 mg(1,500mg) -800 unit Tablet 1 tab PO HS RF: 0 multivitamin tablet 1 tab PO DAILY Qty: 30 RF: 0 thiamine HCl (vitamin B1) 100 mg tablet 100 mg PO DAILY Qty: 30 RF: 0 folic acid 1 mg tablet 1 mg PO DAILY Qty: 30 RF: 5 ibuprofen 200 mg Tablet 200 mg PO Q6H PRN (Reason: Fever Or Pain) RF: 0 magnesium 250 mg Tablet 125 mg PO DAILY RF: 0 albuterol sulfate 90 mcg/actuation Hfa Aerosol Inhaler 2 puff INHALATION DIRECTED PRN (Reason: Shortness Of Breath Or Wheezing) RF: 0 Rosacea Cream 1 applic topical DIRECTED RF: 0 Referrals Referrals: Ct Morales DO [Primary Care Provider] -
[2020-01-24 18:48] LABS: Hematocrit (blood only) 43.5 % (37-47); Hemoglobin 14.8 g/dL (12.0-16.0); Mean Corpuscular Hemoglobin 36.5 pg (25-34); Mean Corpuscular Volume 107.4 fL (80-100); Mean Platelet Volume 11.5 fL (7.4-10.4); Platelet Count 145 K/uL (130-400); RDW Coefficient of Variation 12.7 % (11.5-14.5); RDW Standard Deviation 50.2 fL (36.4-46.3); Red Blood Count 4.05 M/uL (4.2-5.4); White Blood Count 23.44 K/uL (4.8-10.8)
[2020-01-24 19:20] LABS: Basophils # (auto) 0.02 K/uL (0-0.2); Basophils % (auto) 0.1 %; Immature Granulocytes # (auto) 0.14 K/uL (0.00-0.02); Immature Granulocytes % (auto) 0.6 %; Lymphocytes # (auto) 0.64 K/uL (1.2-3.4); Lymphocytes % (auto) 2.7 %; Monocytes # (auto) 1.33 K/uL (0.11-0.59); Monocytes % (auto) 5.7 %; Neutrophils # (auto) 21.31 K/uL (1.4-6.5); Neutrophils % (auto) 90.9 %
[2020-01-24 19:27] LABS: Alanine Aminotransferase 67 U/L (12-78); Albumin Globulin Ratio 0.7 (0.9-2); Albumin Level 3.4 gm/dl (3.4-5.0); Alkaline Phosphatase 138 U/L (45-117); Aspartate Aminotransferase 60 U/L (15-37); BUN Creatinine Ratio 15.7 (10-20); Bilirubin,Total 2.2 mg/dl (0.2-1); Blood Urea Nitrogen 20 mg/dl (7-18); Calcium 8.6 mg/dl (8.5-10.1); Carbon Dioxide 26 mmol/L (21-32); Chloride 104 mmol/L (98-107); Creatinine Clr Calc Pharmacy 41.6 ml/min; Est GFR (African American) 50.4; Est GFR (Non-African American) 43.5; Globulin 4.8 gm/dl (2.5-4.0); Glucose 155 mg/dl (70-99); Magnesium 1.7 mg/dl (1.8-2.4); Potassium 3.9 mmol/L (3.5-5.1); Sodium 138 mmol/L (136-145); Total Protein 8.2 gm/dl (6.4-8.2); Troponin I < 0.015 ng/ml (0-0.045)
--- NOTE | 2020-01-24 19:37 | XRay Report ---
XR chest 1V portable HISTORY: SEPSIS COMPARISON: Chest 04/04/2018. FINDINGS: The heart is normal in size. No pleural effusions. No pneumothorax. Mild diffuse interstiti al thickening which is likely chronic. No new focal lung consolidations to suggest pneumonia. IMPRESSION: No significant change compared to the prior study. No acute process. ACT 112: Negative or not required by law. Electronically signed by: Ray Galvan M.D. 01/24/2020 7:35 PM
[2020-01-24 19:59] LABS: Adenovirus PCR Not Detected (NotDetected); Bordetella parapertussis PCR Not Detected (NotDetected); Bordetella pertussis PCR Not Detected (NotDetected); Chlamydia pneumoniae PCR Not Detected (NotDetected); Coronavirus 229E PCR Not Detected (NotDetected); Coronavirus HKU1 PCR Not Detected (NotDetected); Coronavirus NL63 PCR Not Detected (NotDetected); Coronavirus OC43PCR Not Detected (NotDetected); Human Metapneumovirus PCR Not Detected (NotDetected); Influenza A PCR Not Detected (NotDetected); Influenza B PCR Not Detected (NotDetected); Mycoplasma pneumoniae PCR Not Detected (NotDetected); Parainfluenza Virus 1 PCR Not Detected (NotDetected); Parainfluenza Virus 2 PCR Not Detected (NotDetected); Parainfluenza Virus 3 PCR Not Detected (NotDetected); Parainfluenza Virus 4 PCR Not Detected (NotDetected); Respiratory Syncytial VirusPCR Not Detected (NotDetected); Rhinovirus/Enterovirus PCR Not Detected (NotDetected)
[2020-01-24 20:01] LABS: Appearance Urine Clear (Clear); Bilirubin Urine Negative (Negative); Blood Urine Negative (Negative); Color Urine Yellow; Glucose Urine UA Negative (Negative); Ketones Urine Negative (Negative); Leukocyte Esterase Urine Negative (Negative); Nitrite Urine Negative (Negative); Protein Urine Negative (Negative); Specific Gravity Urine 1.005 (1.000-1.030); Urobilinogen Urine Negative (Negative); pH Urine 6.5 (4.5-7.5)
--- NOTE | 2020-01-24 20:05 | CT Scan Report ---
ABDOMEN AND PELVIS CT WITHOUT CONTRAST CT DOSE: 859.98 mGycm HISTORY: polyuria febrile TECHNIQUE: Multiaxial CT images of the abdomen and pelvis were performed without contrast. A dose lo wering technique was utilized adhering to the principles of ALARA. COMPARISON STUDY: Abdomen and pelvis CT 04/01/2018. FINDINGS: Mild interstitial thickening at the lung bases. No pneumoperitoneum. No pneumatosis. No mackenzie picious lytic or blastic osseous lesions. There is a new 3.8 cm hypodense lesion within the right hep atic dome. This is incompletely characterized on this noncontrast study. The unenhanced spleen, adren al glands, pancreas, and gallbladder are unremarkable. No renal stones or hydronephrosis. Mild to mod erate bilateral cortical renal scarring remains unchanged. Stable 3.3 cm hypodense lesion within the lower pole of the right kidney. This favors a cyst. Normal bladder. No pelvic free fluid. Abnormal ap pearance to the mid sigmoid colon which demonstrates mild thickening. Multiple colonic diverticula an d minimal pericolonic fat stranding. This raises the possibility of an acute on chronic diverticuliti s. However, an underlying colonic mass cannot be excluded. No change in the 4.7 cm cystic focus withi n the left adnexa. Small lipoma within the proximal sigmoid colon best in image 242. There is an larissa tional site of mild pericolonic fat stranding at the distal descending colon image 211. This may repr esent an additional site of mild acute diverticulitis. No evidence for bowel obstruction. No retroper itoneal lymphadenopathy. A few prominent ileocolic lymph nodes versus vascular structures best seen o n image 199. This is improved in the interval. There appears to be an enterocolic fistula at the prox imal sigmoid colon. This is best seen on image 220. IMPRESSION: 1. Abnormal appearance to the mid sigmoid colon which demonstrates mild wall thickening and minimal p ericolonic fat stranding. Given the multiple colonic diverticula, this raises the possibility of an a cute on chronic diverticulitis. However, an underlying colonic mass could also a similar appearance. Therefore, endoscopy is recommended for further evaluation. 2. Mild pericolonic fat stranding at the distal descending colon which may represent an additional si te of mild acute diverticulitis. 3. There is a new 3.8 cm hypodense lesion within the right hepatic dome. This is incompletely charact erized on this noncontrast study. Dedicated contrast-enhanced MRI is recommended to exclude the possi bility of a hepatic metastatic lesion or abscess. 4. No change in the 4.7 cm cystic focus within the left adnexa. 5. 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 ACT 112: Negative or not required by law. Electronically signed by: Ray Galvan M.D. 01/24/2020 8:04 PM
[2020-01-24] MEDS ORDERED: metroNIDAZOLE 500 MG/100 ML BAG IV STA (20:15)
[2020-01-24] MEDS ORDERED: cefTRIAXone SODIUM 1,000 MG/50 ML BAG IV STA (20:15)
[2020-01-24 20:51] LABS: INR 1.1 (0.9-1.1); Partial Thromboplastin Ratio 1.2; Partial Thromboplastin Time 34.6 Seconds (21.0-31.0); Prothrombin Time 11.9 Seconds (9.0-12.0)
--- NOTE | 2020-01-24 23:29 | History and Physical Report ---
DATE OF ADMISSION: 01/24/2020 CHIEF COMPLAINT: Fever. HISTORY OF PRESENT ILLNESS: This is a 64-year-old female with past medical history significant for hyperlipidemia, hypokalemia, hypomagnesemia, history of acute respiratory failure, multiple lung nodules on CT, restrictive lung disease, hypertension, alcoholic cirrhosis of liver, history of biliary disease, bilateral sacroiliitis, depression, generalized anxiety disorder, tobacco disorder, chronic alcoholism, who presents with fever. The patient lives alone. Yesterday night she had temperature of 104 degrees and she thought she might had bladder infection as she was frequently urinating and lower abdominal discomfort. Denies any shortness of breath. She has chronic cough from her smoking. She has some runny nose early in the morning, that is usual for her. Denies any shortness of breath, no chest pain. Has some headache. No blurred visions, no earache, no runny nose, no difficulty swallowing. No nausea, no blood in the stools or black stools. Currently resting comfortably and hemodynamically stable. The patient was worried about COVID. Since her score was low, COVID test was sent out of the hospital. Imaging studies showed diverticulitis. ALLERGIES: No known drug allergies. PAST MEDICAL HISTORY: As mentioned above. PAST SURGICAL HISTORY: , colonoscopies, conization of cervix, dental surgery, EGD with endoscopic ultrasound, eye muscle surgery, lumbosacral injection, removal of partial vulva. MEDICATIONS: Ativan 0.5 mg p.o. t.i.d. p.r.n., atenolol 12.5 mg p.o. at bedtime, albuterol 2 puffs every 4 hours p.r.n., Pepcid 20 mg p.o. b.i.d., folic acid 1 mg p.o. daily, magnesium chloride 125 mg p.o. daily, thiamine 100 mg p.o. daily, vitamin D 1000 units p.o. daily, calcium 500 mg p.o. daily, multivitamins 1 tablet p.o. daily. FAMILY HISTORY: Significant for mother had throat cancer, at age of 54; father had hypertension, prostate cancer, at age of 75; brother had skin cancer. SOCIAL HISTORY: , lives alone, son and daughters live close by. Smokes 1 pack a day for the last 45 years. Alcohol, she now drinks 2 glasses of wine every day. No drug use. REVIEW OF SYSTEMS: As per HPI. Rest of the review of systems negative. PHYSICAL EXAMINATION: GENERAL: The patient is of moderate build, not in acute distress. VITAL SIGNS: Temperature T-max 38, pulse 99, respiratory rate 23, blood pressure 118/65, and oxygen 95% on 2 liters. HEENT: No pallor, no icterus. NECK: No JVD, no neck masses. CARDIOVASCULAR: S1, S2 heard, regular rate and rhythm, no murmur, no gallop. RESPIRATORY SYSTEM: Normal AP diameter. No accessory muscle use. No wheezing, no crackles. ABDOMEN: Soft, bowel sounds present. Mild abdominal discomfort. No guarding, no rigidity, no distention. CENTRAL NERVOUS SYSTEM: Cranial nerves II-XII grossly intact, nonfocal. EXTREMITIES: No edema, no erythema. LABORATORY DATA: WBC 23.4, hemoglobin 14.8, hematocrit 43.5, platelets 145. PT 11.9, INR 1.1, APTT 34.6. Sodium 138, potassium 3.9, chloride 104, bicarbonate 26, BUN 20, creatinine 1.28, serum glucose 155. Lactate 1.4, calcium 8.6, magnesium 1.7, total bilirubin 2.2, AST 60, ALT 67, alkaline phosphatase 138. Troponin I less than 0.015. Procalcitonin 1.14. Urinalysis negative. EKG: Sinus tachycardia with occasional PVCs at rate of 115. No acute ST changes seen. IMAGING DATA: Chest x-ray, no significant change from prior studies. CT of abdomen and pelvis shows abnormal appearance to the mid sigmoid colon, which demonstrates mild wall thickening and minimal pericolonic fat stranding. Given the multiple colonic diverticula, this raises the possibility of an [id number] diverticulitis; however, an underlying colonic mass could also be a similar appearance. Therefore, endoscopy was recommended for further evaluation. Mild pericolonic fat stranding of the distal descending colon which may represent additional site of mild acute diverticulitis. There is a new 3.8 cm hypodense lesion within the right hepatic dome. This is incompletely characterized on this contrast study. Dedicated contrast enhanced MRI is recommended to exclude the possibility of hepatic metastatic lesion on the abscess. No change in the 4.5 cm cystic focus in the left adnexa. 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 ASSESSMENT AND PLAN: This is a 64-year-old female who presents with fever and some abdominal discomfort and found to have acute diverticulitis. 1. Acute diverticulitis. 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 Empirically treating with IV Zosyn, n.p.o., IV fluids, IV pain medications p.r.n., IV antiemetics p.r.n., and consult surgery for further recommendation. Right hepatic dome lesion. Needs an MRI scan when patient is more stable. 2. History of lung nodules. Needs followup. We may get a CT chest when stable in the hospital. 3. History of alcoholism. The patient says she drinks 2 glasses of wine daily now. The patient has a history of withdrawal symptoms in the past. We will place her on banana bag and she takes p.o. thiamine and folic acid at home, which will continue and continue with gabapentin, IV Ativan protocol. Monitor for withdrawal. 4. History of hypomagnesemia. Continue home supplement. 5. Hypertension. Continue atenolol. 6. Tobacco abuse, needs counseling. Nicotine patch. 7. History of restrictive lung disease, on albuterol p.r.n. 8. Deep venous thrombosis prophylaxis, Lovenox, sequential compression devices. 9. Acute kidney injury, creatinine of 1.28. Getting fluids. Follow the labs in the a.m. DISPOSITION: Admit to med tele. Expect to discharge home and follow with family doctor. Awaiting COVID testing though risk seems to be low. Addendum: On floor patine became tachycardic and was shaking and spiked fever. Transferred to tele. Gave litre fluid bolus and added vancomycin.Will follow lactic acid and tick borne illness labs(patient denies tick bites). [facility]
[2020-01-25] MEDS ORDERED: MULTI-VITAMIN INFUSION 10 ML, THIAMINE HCL 100 MG, FOLIC ACID 1 MG in SODIUM CHLORIDE 0... IV ONE (00:43)
[2020-01-25] MEDS ORDERED: PIPERACILLIN/TAZOBACTAM 3.375 GM in DEXTROSE 5% 100 ML IV SCH (00:43)
[2020-01-25] MEDS ORDERED: NITROGLYCERIN SL 0.4 MG/TAB TAB SL PRN (00:43)
[2020-01-25] MEDS ORDERED: LORazepam 3 MG/6 ML VIAL IV PRN (00:43)
[2020-01-25] MEDS ORDERED: MoRPHine SULFATE 2 MG/ML CARP IV PRN (00:43)
[2020-01-25] MEDS ORDERED: PIPERACILL/TAZOBAC CONSULT ACTIVE PRN ×2 (00:43→00:51)
[2020-01-25] MEDS ORDERED: LORazepam 0.5 MG TAB PO PRN (00:43)
[2020-01-25] MEDS ORDERED: ONDANSETRON INJ 2 MG/ML 2 ML VIAL IV PRN (00:43)
[2020-01-25] MEDS ORDERED: LORazepam 1 MG/2 ML VIAL IV PRN (00:43)
[2020-01-25] MEDS ORDERED: GABAPENTIN 1200MG ALCOHOL WITHDRAWAL LOAD PO STA (00:43)
[2020-01-25] MEDS ORDERED: LORazepam 2 MG/4 ML VIAL IV PRN (00:43)
[2020-01-25] MEDS ORDERED: ATIVAN IV ALCOHOL WITHDRAWL IV PRN (00:43)
[2020-01-25] MEDS ORDERED: ALBUTEROL HFA 8 GM INHALER INH PRN (00:43)
[2020-01-25] MEDS ORDERED: MAGNESIUM SULFATE / D5W 1 GM/100 ML BAG IV ONE ×3 (00:48→23:17)
[2020-01-25] MEDS ORDERED: VANCOMYCIN CONSULT ACTIVE PRN (00:51)
[2020-01-25] MEDS ORDERED: SODIUM CHLORIDE 0.9% 1000ML 1,000 ML IV SCH (01:00)
[2020-01-25] MEDS ORDERED: GABAPENTIN 600 MG TAB PO SCH ×3 (01:00→22:00)
[2020-01-25] MEDS: ACETAMINOPHEN 325 MG TAB PO PRN ×3 (01:22→20:25)
[2020-01-25] MEDS ORDERED: VANCOMYCIN HCL 1,750 MG in SODIUM CHLORIDE 0.9% 500 ML IV ONE (02:00)
[2020-01-25] MEDS: D5W AND NSS 1,000 ML IV SCH ×3 (05:05→20:15)
[2020-01-25] MEDS: PIPERACILLIN/TAZOBACTAM 3.375 GM in DEXTROSE 5% 100 ML IV SCH ×3 (05:06→20:14)
--- NOTE | 2020-01-25 06:35 | Surgery Consultation ---
Date of Consultation January 25, 2020 Assessment & Plan (1) Diverticulitis: Patient has mild to moderate of diverticulitis though I am unsure this is her reason for a fever We will continue to with limited p.o. and ice only for today and IV antibiotics Apparently there may be the suggestion of a colonic mass which may require colonoscopy sooner than later She has abnormal liver functions and pro time I would feel that gastroenterology should evaluate the patient for history of possible cirrhosis-her elevated prothrombin time is concerning She also has evidence of a hepatic mass which will require MRI He does not require urgent surgery and would be very high risk if she does require surgery We will continue to follow History of Present Illness Attending Physician: Kristine Khanna, History of Present Illness 64-year-old female admitted through the emergency room with nonspecific lower abdominal pain and also some Symptoms of dysuria On her CAT scan she has what appears to be diverticulitis with no evidence of perforation or abscess She appears to be hemoconcentrated with an indication of dehydration She has a significant history of cirrhosis and biliary disease from chronic ethanol usage Her prothrombin time is elevated at 16.3 she is not thrombocytopenic and her liver functions are mildly elevated CT shows evidence of a hepatic mass which they suggest MRI and also possible colonic mass suggesting endoscopy Allergies Allergy/AdvReac Type Severity Reaction Status Date / Time No Known Allergies Allergy Verified 01/24/20 19:55 Home Medications Home Medications Medication Instructions Recorded Confirmed Type atenolol 12.5 mg PO HS 04/02/18 01/24/20 History calcium carbonate-vitamin D3 1 tab PO HS 04/02/18 01/24/20 History cholecalciferol (vitamin D3) 1,000 units PO Q2D 04/02/18 01/24/20 History [Vitamin D3] lorazepam 0.5 - 1 mg PO TID PRN 04/02/18 01/24/20 History folic acid 1 mg PO DAILY #30 tab 04/13/18 01/24/20 Rx multivitamin 1 tab PO DAILY #30 tab 04/13/18 01/24/20 Rx thiamine HCl (vitamin B1) 100 mg PO DAILY #30 tab 04/13/18 01/24/20 Rx Rosacea Cream 1 applic TOPICAL DIRECTED 01/24/20 01/24/20 History albuterol sulfate 2 puff INHALATION DIRECTED PRN 01/24/20 01/24/20 History ibuprofen 200 mg PO Q6H PRN 01/24/20 01/24/20 History magnesium 125 mg PO DAILY 01/24/20 01/24/20 History Patient History Medical History AA (alcohol abuse) (Chronic) Alcohol use (Chronic) Anxiety (Chronic) Depression (Chronic) Diverticulosis of colon (Chronic) Fatty liver (Chronic) GERD (gastroesophageal reflux disease) (Chronic) Hx of ectopic Hyperlipidemia (Chronic) Hypertension (Chronic) Hypokalemia (Acute) Respiratory failure, acute Tobacco abuse (Chronic) Transaminitis (Resolved) Surgical History H/O wisdom tooth extraction (Chronic) H/O: (Chronic) History of oophorectomy, unilateral (Chronic) Hx of eye surgery Family History Other No significant family history Social History Preferred Language: Hebrew Communication Ability: Effective Machine I Cutter Required: No Beliefs That Will Affect Care: None marital status: Single Current Living Situation: Alone Other Information That Helps Us Care for You: No Feels Safe at Home: Yes Smoking Status: Current every day smoker Tobacco Type: cigarettes ; Cigarettes Per Day: 20 ; Do You Dip or Chew Tobacco: No ; Second Hand Exposure: No ; Tobacco Cessation Education Requested by Patient: No Hx Alcohol Use: Yes Alcohol type: wine Hx Substance Use: No Physical Exam Constitutional: well developed and well nourished; no acute distress and not ill appearing Patient is awake and alert and in no distress with what appears to be a normal affect Eyes: + anicteric sclerae Respiratory: normal respiratory effort; no respiratory distress Cardiovascular: Rate/Rhythm: regular rate and + tachycardic Gastrointestinal (Abdomen): Inspection/Auscultation: abdomen normal to insp ection; abdomen not distended Her abdomen is soft and she has minimal tenderness in the lower abdomen Skin: no rashes, warm and dry Neurologic: awake Psychiatric: Orientation: alert Results & Data Vital Signs (Past 12 Hours) Vital Signs Temp Pulse Pulse Resp BP BP BP 01/25/20 02:16 37.8 C H 118 H 20 111/65 01/25/20 01:02 128 H 01/25/20 00:48 38.5 C H 131 H 18 163/79 H 01/25/20 00:05 88 20 110/81 01/24/20 23:36 89 14 01/24/20 23:30 90 20 105/43 L 01/24/20 23:15 91 H 20 94/51 L 01/24/20 23:01 90 20 01/24/20 23:00 90 20 119/71 01/24/20 22:45 90 25 H 89/52 L 01/24/20 22:30 96 H 21 117/66 01/24/20 22:03 99 H 23 118/65 01/24/20 21:45 96 H 25 H 106/61 01/24/20 21:30 92 H 25 H 98/65 L 01/24/20 21:15 96 H 24 113/55 L 01/24/20 21:13 01/24/20 21:00 100 H 24 103/61 01/24/20 20:45 101 H 24 99/62 L 01/24/20 20:30 102 H 24 111/50 L 01/24/20 20:20 102 H 24 113/56 L 01/24/20 20:10 105 H 25 H 106/61 01/24/20 20:00 108 H 24 100/58 L 01/24/20 19:51 115 H 22 111/61 01/24/20 19:32 37.6 C H 01/24/20 19:14 105 H 24 115/67 01/24/20 18:40 106 H 104 H 27 H 90/69 L 90/69 L Pulse Ox 01/25/20 02:16 90 01/25/20 01:02 01/25/20 00:48 92 01/25/20 00:05 94 01/24/20 23:36 94 01/24/20 23:30 01/24/20 23:15 01/24/20 23:01 01/24/20 23:00 01/24/20 22:45 01/24/20 22:30 94 01/24/20 22:03 95 01/24/20 21:45 94 01/24/20 21:30 94 01/24/20 21:15 94 01/24/20 21:13 90 01/24/20 21:00 90 01/24/20 20:45 90 01/24/20 20:30 92 01/24/20 20:20 93 01/24/20 20:10 93 01/24/20 20:00 93 01/24/20 19:51 95 01/24/20 19:32 01/24/20 19:14 95 01/24/20 18:40 98 I reviewed her CAT scan and laboratories PG Care Time/CCT Total # of Minutes Spent Total Time Spent with Patient: Total time spent is greater than 50% in coordination of care (as documented) at patient's floor/unit and/or counseling patient: Coding Level of Care Code 64215 Initial Inpt Care Lvl 3 Diagnoses Diverticulitis K57.92
[2020-01-25 07:59] LABS: Hematocrit (blood only) 37.2 % (37-47); Hemoglobin 12.1 g/dL (12.0-16.0); Mean Corpuscular Hemoglobin 35.5 pg (25-34); Mean Corpuscular Hgb Conc 32.5 g/dL (32-36); Mean Corpuscular Volume 109.1 fL (80-100); Mean Platelet Volume 10.9 fL (7.4-10.4); Platelet Count 117 K/uL (130-400); RDW Standard Deviation 51.1 fL (36.4-46.3); Red Blood Count 3.41 M/uL (4.2-5.4); White Blood Count 16.56 K/uL (4.8-10.8)
[2020-01-25 08:26] LABS: Basophils # (auto) 0.01 K/uL (0-0.2); Basophils % (auto) 0.1 %; Eosinophils # (auto) 0.01 K/uL (0-0.5); Eosinophils % (auto) 0.1 %; Immature Granulocytes # (auto) 0.07 K/uL (0.00-0.02); Immature Granulocytes % (auto) 0.4 %; Lymphocytes # (auto) 0.47 K/uL (1.2-3.4); Lymphocytes % (auto) 2.8 %; Monocytes # (auto) 0.91 K/uL (0.11-0.59); Monocytes % (auto) 5.5 %; Neutrophils # (auto) 15.09 K/uL (1.4-6.5); Neutrophils % (auto) 91.1 %
[2020-01-25 08:30] LABS: Dohle Bodies 1+; Toxic Vacuolation 1+
[2020-01-25 08:35] LABS: Albumin Level 2.4 gm/dl (3.4-5.0); BUN Creatinine Ratio 15.3 (10-20); Bilirubin Direct 1.1 mg/dl (0-0.2); Calcium 7.3 mg/dl (8.5-10.1); Creatinine Clr Calc Pharmacy 55.3 ml/min; Est GFR (African American) 70.5; Est GFR (Non-African American) 60.9; Magnesium 1.9 mg/dl (1.8-2.4); Potassium 3.9 mmol/L (3.5-5.1)
[2020-01-25 08:38] LABS: Bilirubin,Total 1.8 mg/dl (0.2-1); Total Protein 5.6 gm/dl (6.4-8.2)
--- NOTE | 2020-01-25 08:39 | Gastrointestinal Consultation ---
Date of Consultation January 25, 2020 Assessment & Plan (1) Diverticulitis: 64 year old female presenting with urinary frequency, abdominal pressure, fevers at home admitted w suspected diverticulitis. Appreciate surgical recommendations Agree with IV ABX Will need a colonoscopy in about 4-6 weeks Last colon in 2016 w/ Diverticulosis in the sigmoid colon and in the descending, large lipoma in the descending colon and hemorrhoids Counseled on ETOH cessation ETOH withdrawal protocol Will need dedicated liver MRI Check AFP MELD 10 DF 2 Supervising Physician Co-Signing Physician Notes I saw and evaluated the patient. We were consulted for a fever and possible diverticulitis of the left colon. The patient notes that her fever has improved significantly since admission and starting the antibiotics. She does report having a prior colonoscopy about 4 to 5 years ago which was notable for diverticulosis. Physical examination No obvious distress Mild tenderness in the left lower quadrant Impression: Patient presenting with signs and symptoms most consistent with diverticulitis of the colon. I am somewhat concerned about the lesion seen on the recent CT scan would recommend further evaluation with an MRI as suggested by radiology. This could represent an etiology or perhaps even a mass or abscess. There is also a question of an enterocolic fistula on her CT scan. For this I would suggest further evaluation with an MRI and discussion with surgery Recommendations Continue IV antibiotic coverage Outpatient colonoscopy in 4 to 6 weeks MRI of the liver recommended History of Present Illness Reason for Consultation: liver mass, colon abnormality Requesting Physician: Jey Attending Physician: Kristine Khanna, DO History of Present Illness 64 year old female with history of hyperlipidemia, hypokalemia, hypomagnesemia, acute respiratory failure, multiple lung nodules on CT, restrictive lung disease, hypertension, alcoholic cirrhosis of liver, history of biliary disease, bilateral sacroiliitis, depression, generalized anxiety disorder, tobacco disorder, chronic alcoholism last ETOH use was the day of admission, had 1 glass of wine who presents with fever, urinary frequency and abd pressure - GI asked to evaluate for abnormal CTAP. She is a poor historian. Suggests continued daily ETOH use. No abd pain at baseline. No nausea/vomiting. No GERD. About 3/4 days ago noted increased urinary frequency and some lower abd pressure/discomfort associated with loose stools. No black/bloody stools. Denies any abdominal pain, just fullness. Grew concerned with fever at home at sought care. Last seen in GI clinic in [address] Mckay. Note indicates heavy alcohol use with suspected liver cirrhosis, PVT, treated for 6 months with Coumadin and repeat imaging showed no PVT, EUS showed no biliary abnormalities. Repeat MRCP and CT scan Liver protocol showed no biliary abnormalities and chronic left PVT with mild left lobe atrophy. Fibroscan showed F2 CTAP: Abnormal appearance to the mid sigmoid colon which demonstrates mild wall thickening and minimal pericolonic fat stranding. Given the multiple colonic diverticula, this raises the possibility of an acute on chronic diverticulitis. However, an underlying colonic mass could also a similar appearance. Therefore, endoscopy is recommended for further evaluation. Mild pericolonic fat stranding at the distal descending colon which may represent an additional site of mild acute diverticulitis. There is a new 3.8 cm hypodense lesion within the right hepatic dome. This is incompletely characterized on this noncontrast study. Dedicated contrast-enhanced MRI is recommended to exclude the possibility of a hepatic metastatic lesion or abscess. No change in the 4.7 cm cystic focus within the left adnexa. 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 Allergies Allergy/AdvReac Type Severity Reaction Status Date / Time No Known Allergies Allergy Verified 01/24/20 19:55 Home Medications Home Medications Medication Instructions Recorded Confirmed Type atenolol 12.5 mg PO HS 04/02/18 01/24/20 History calcium carbonate-vitamin D3 1 tab PO HS 04/02/18 01/24/20 History cholecalciferol (vitamin D3) 1,000 units PO Q2D 04/02/18 01/24/20 History [Vitamin D3] lorazepam 0.5 - 1 mg PO TID PRN 04/02/18 01/24/20 History folic acid 1 mg PO DAILY #30 tab 04/13/18 01/24/20 Rx multivitamin 1 tab PO DAILY #30 tab 04/13/18 01/24/20 Rx thiamine HCl (vitamin B1) 100 mg PO DAILY #30 tab 04/13/18 01/24/20 Rx Rosacea Cream 1 applic TOPICAL DIRECTED 01/24/20 01/24/20 History albuterol sulfate 2 puff INHALATION DIRECTED PRN 01/24/20 01/24/20 History ibuprofen 200 mg PO Q6H PRN 01/24/20 01/24/20 History magnesium 125 mg PO DAILY 01/24/20 01/24/20 History Patient History Medical History AA (alcohol abuse) (Chronic) Alcohol use (Chronic) Anxiety (Chronic) Depression (Chronic) Diverticulosis of colon (Chronic) Fatty liver (Chronic) GERD (gastroesophageal reflux disease) (Chronic) Hx of ectopic Hyperlipidemia (Chronic) Hypertension (Chronic) Hypokalemia (Acute) Respiratory failure, acute Tobacco abuse (Chronic) Transaminitis (Resolved) Surgical History H/O wisdom tooth extraction (Chronic) H/O: (Chronic) History of oophorectomy, unilateral (Chronic) Hx of eye surgery Family History Other No significant family history Social History Preferred Language: Frisian Communication Ability: Effective 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 Beliefs That Will Affect Care: None marital status: Single Current Living Situation: Alone Other Information That Helps Us Care for You: No Feels Safe at Home: Yes Smoking Status: Current every day smoker Tobacco Type: cigarettes ; Cigarettes Per Day: 20 ; Do You Dip or Chew Tobacco: No ; Second Hand Exposure: No ; Tobacco Cessation Education Requested by Patient: No Hx Alcohol Use: Yes Alcohol type: wine Hx Substance Use: No Review of Systems Constitutional: + fever and + chills; no fatigue and no anorexia Respiratory: + cough; no dyspnea, no dyspnea on exertion and no wheezing Cardiovascular: no chest pain, no dyspnea, no dyspnea at rest and no lightheadedness Gastrointestinal: + bloating, + change in bowel habits and + diarrhea/loose stools; no abdominal pain, no coffee ground emesis, no dysphagia, no change in stools, no blood in stools and no melena Physical Exam Constitutional: well developed, well nourished and + obese; no acute distress and not ill appearing Neck: trachea midline Respiratory: normal respiratory effort Auscultation: + diminished lung sounds; no crackles, no rales, no rhonchi and no wheezes Cardiovascular: Rate/Rhythm: regular rate and regular rhythm Heart Sounds: no murmur Extremities: no pedal edema and no edema Gastrointestinal (Abdomen): Inspection/Auscultation: normal bowel sounds; abdomen not distended Percussion/Palpation: + abdomen tender and abdomen soft; no guarding and abdomen not rigid Skin: no rashes, warm and dry Results & Data ([facility]) Vital Signs (Past 12 Hours) Vital Signs Temp Pulse Pulse Resp BP BP BP 01/25/20 07:46 39.2 C H 105 H 19 98/60 L 01/25/20 02:16 37.8 C H 118 H 20 111/65 01/25/20 01:02 128 H 01/25/20 00:48 38.5 C H 131 H 18 163/79 H 01/25/20 00:05 88 20 110/81 01/24/20 23:36 89 14 01/24/20 23:30 90 20 105/43 L 01/24/20 23:15 91 H 20 94/51 L 01/24/20 23:01 90 20 01/24/20 23:00 90 20 119/71 01/24/20 22:45 90 25 H 89/52 L 01/24/20 22:30 96 H 21 117/66 01/24/20 22:03 99 H 23 118/65 01/24/20 21:45 96 H 25 H 106/61 01/24/20 21:30 92 H 25 H 98/65 L 01/24/20 21:15 96 H 24 113/55 L 01/24/20 21:13 01/24/20 21:00 100 H 24 103/61 01/24/20 20:45 101 H 24 99/62 L Pulse Ox 01/25/20 07:46 93 01/25/20 02:16 90 01/25/20 01:02 01/25/20 00:48 92 01/25/20 00:05 94 01/24/20 23:36 94 01/24/20 23:30 01/24/20 23:15 01/24/20 23:01 01/24/20 23:00 01/24/20 22:45 01/24/20 22:30 94 01/24/20 22:03 95 01/24/20 21:45 94 01/24/20 21:30 94 01/24/20 21:15 94 01/24/20 21:13 90 01/24/20 21:00 90 01/24/20 20:45 90 Laboratory Results 01/25/20 01/25/20 01/25/20 Range/Units 07:34 07:34 07:34 WBC (4.8-10.8) K/uL RBC (4.2-5.4) M/uL Hgb (12.0-16.0) g/dL Hct (37-47) % MCV (80-100) fL MCH (25-34) pg MCHC (32-36) g/dL RDW Std Deviation (36.4-46.3) fL RDW Coeff of Vale (11.5-14.5) % Plt Count (130-400) K/uL MPV (7.4-10.4) fL Immature Gran % (Auto) % Neut % (Auto) % Lymph % (Auto) % Dawes % (Auto) % Eos % (Auto) % Baso % (Auto) % Neut # (Auto) (1.4-6.5) K/uL Lymph # (Auto) (1.2-3.4) K/uL Dawes # (Auto) (0.11-0.59) K/uL Eos # (Auto) (0-0.5) K/uL Baso # (Auto) (0-0.2) K/uL Immature Gran # (Auto) (0.00-0.02) K/uL Toxic Vacuolation Dohle Bodies PT (9.0-12.0) Seconds INR (0.9-1.1) APTT (21.0-31.0) Seconds PTT Ratio Sodium (136-145) mmol/L Potassium (3.5-5.1) mmol/L Chloride (98-107) mmol/L Carbon Dioxide (21-32) mmol/L Anion Gap (3-11) BUN (7-18) mg/dl Creatinine (0.6-1.2) mg/dl Est Cr Clr Drug Dosing ml/min Est GFR ( Amer) Est GFR (Non-Af Amer) BUN/Creatinine Ratio (10-20) Glucose (70-99) mg/dl Lactate 1.3 (0.4-2.0) mmol/L Calcium (8.5-10.1) mg/dl Magnesium (1.8-2.4) mg/dl Total Bilirubin (0.2-1) mg/dl Direct Bilirubin (0-0.2) mg/dl AST (15-37) U/L ALT (12-78) U/L Alkaline Phosphatase (45-117) U/L Troponin I (0-0.045) ng/ml Total Protein (6.4-8.2) gm/dl Albumin (3.4-5.0) gm/dl Globulin (2.5-4.0) gm/dl Albumin/Globulin Ratio (0.9-2) Vitamin B12 Folate Procalcitonin (0-0.5) ng/ml Urine Color Urine Appearance (Clear) Urine pH (4.5-7.5) Ur Specific Hubbard (1.000-1.030) Urine Protein (Negative) Urine Glucose (UA) (Negative) Urine Ketones (Negative) Urine Blood (Negative) Urine Nitrite (Negative) Urine Bilirubin (Negative) Urine Urobilinogen (Negative) Ur Leukocyte Esterase (Negative) Adenovirus (PCR) (NotDetected) Anaplasma Smear A. phagocytophilum DNA Pending B. pertussis DNA (PCR) (NotDetected) B.parapertussis DNA PCR (NotDetected) Lyme Disease IgG Ab Pending Lyme Disease IgM Ab Pending C. pneumoniae DNA (PCR) (NotDetected) Coronavirus OC43 (PCR) (NotDetected) Coronavirus HKU1 (PCR) (NotDetected) Coronavirus 229E (PCR) (NotDetected) COVID-19 PCR (Negative) Coronavirus NL63 (PCR) (NotDetected) Human Metapneumovir PCR (NotDetected) Influenza Type A (PCR) (NotDetected) Influenza Type B (PCR) (NotDetected) M. pneumoniae (PCR) (NotDetected) Parainfluenza 1 (PCR) (NotDetected) Parainfluenza 2 (PCR) (NotDetected) Parainfluenza 3 (PCR) (NotDetected) Parainfluenza 4 (PCR) (NotDetected) RSV (PCR) (NotDetected) Entero/Rhino (PCR) (NotDetected) SARS-CoV-2 RNA (RT-PCR) 01/25/20 01/25/20 01/25/20 Range/Units 07:34 07:34 07:34 WBC 16.56 H (4.8-10.8) K/uL RBC 3.41 L (4.2-5.4) M/uL Hgb 12.1 (12.0-16.0) g/dL Hct 37.2 (37-47) % MCV 109.1 H (80-100) fL MCH 35.5 H (25-34) pg MCHC 32.5 (32-36) g/dL RDW Std Deviation 51.1 H (36.4-46.3) fL RDW Coeff of Vale 13.0 (11.5-14.5) % Plt Count 117 L (130-400) K/uL MPV 10.9 H (7.4-10.4) fL Immature Gran % (Auto) 0.4 % Neut % (Auto) 91.1 % Lymph % (Auto) 2.8 % Dawes % (Auto) 5.5 % Eos % (Auto) 0.1 % Baso % (Auto) 0.1 % Neut # (Auto) 15.09 H (1.4-6.5) K/uL Lymph # (Auto) 0.47 L (1.2-3.4) K/uL Dawes # (Auto) 0.91 H (0.11-0.59) K/uL Eos # (Auto) 0.01 (0-0.5) K/uL Baso # (Auto) 0.01 (0-0.2) K/uL Immature Gran # (Auto) 0.07 H (0.00-0.02) K/uL Toxic Vacuolation 1+ Dohle Bodies 1+ PT (9.0-12.0) Seconds INR (0.9-1.1) APTT (21.0-31.0) Seconds PTT Ratio Sodium 141 (136-145) mmol/L Potassium 3.9 (3.5-5.1) mmol/L Chloride 113 H (98-107) mmol/L Carbon Dioxide 23 (21-32) mmol/L Anion Gap 5.0 (3-11) BUN 15 (7-18) mg/dl Creatinine 0.97 D (0.6-1.2) mg/dl Est Cr Clr Drug Dosing 55.3 ml/min Est GFR ( Amer) 70.5 Est GFR (Non-Af Amer) 60.9 BUN/Creatinine Ratio 15.3 (10-20) Glucose 158 H (70-99) mg/dl Lactate (0.4-2.0) mmol/L Calcium 7.3 L D (8.5-10.1) mg/dl Magnesium 1.9 (1.8-2.4) mg/dl Total Bilirubin 1.8 H (0.2-1) mg/dl Direct Bilirubin 1.1 H (0-0.2) mg/dl AST 82 H (15-37) U/L ALT 76 (12-78) U/L Alkaline Phosphatase 105 (45-117) U/L Troponin I (0-0.045) ng/ml Total Protein 5.6 L D (6.4-8.2) gm/dl Albumin 2.4 L (3.4-5.0) gm/dl Globulin (2.5-4.0) gm/dl Albumin/Globulin Ratio (0.9-2) Vitamin B12 Pending Folate Pending Procalcitonin (0-0.5) ng/ml Urine Color Urine Appearance (Clear) Urine pH (4.5-7.5) Ur Specific Hubbard (1.000-1.030) Urine Protein (Negative) Urine Glucose (UA) (Negative) Urine Ketones (Negative) Urine Blood (Negative) Urine Nitrite (Negative) Urine Bilirubin (Negative) Urine Urobilinogen (Negative) Ur Leukocyte Esterase (Negative) Adenovirus (PCR) (NotDetected) Anaplasma Smear See Comment A. phagocytophilum DNA B. pertussis DNA (PCR) (NotDetected) B.parapertussis DNA PCR (NotDetected) Lyme Disease IgG Ab Lyme Disease IgM Ab C. pneumoniae DNA (PCR) (NotDetected) Coronavirus OC43 (PCR) (NotDetected) Coronavirus HKU1 (PCR) (NotDetected) Coronavirus 229E (PCR) (NotDetected) COVID-19 PCR (Negative) Coronavirus NL63 (PCR) (NotDetected) Human Metapneumovir PCR (NotDetected) Influenza Type A (PCR) (NotDetected) Influenza Type B (PCR) (NotDetected) M. pneumoniae (PCR) (NotDetected) Parainfluenza 1 (PCR) (NotDetected) Parainfluenza 2 (PCR) (NotDetected) Parainfluenza 3 (PCR) (NotDetected) Parainfluenza 4 (PCR) (NotDetected) RSV (PCR) (NotDetected) Entero/Rhino (PCR) (NotDetected) SARS-CoV-2 RNA (RT-PCR) 01/24/20 01/24/20 01/24/20 Range/Units 19:52 18:49 18:24 WBC (4.8-10.8) K/uL RBC (4.2-5.4) M/uL Hgb (12.0-16.0) g/dL Hct (37-47) % MCV (80-100) fL MCH (25-34) pg MCHC (32-36) g/dL RDW Std Deviation (36.4-46.3) fL RDW Coeff of Vale (11.5-14.5) % Plt Count (130-400) K/uL MPV (7.4-10.4) fL Immature Gran % (Auto) % Neut % (Auto) % Lymph % (Auto) % Dawes % (Auto) % Eos % (Auto) % Baso % (Auto) % Neut # (Auto) (1.4-6.5) K/uL Lymph # (Auto) (1.2-3.4) K/uL Dawes # (Auto) (0.11-0.59) K/uL Eos # (Auto) (0-0.5) K/uL Baso # (Auto) (0-0.2) K/uL Immature Gran # (Auto) (0.00-0.02) K/uL Toxic Vacuolation Dohle Bodies PT (9.0-12.0) Seconds INR (0.9-1.1) APTT (21.0-31.0) Seconds PTT Ratio Sodium (136-145) mmol/L Potassium (3.5-5.1) mmol/L Chloride (98-107) mmol/L Carbon Dioxide (21-32) mmol/L Anion Gap (3-11) BUN (7-18) mg/dl Creatinine (0.6-1.2) mg/dl Est Cr Clr Drug Dosing ml/min Est GFR ( Amer) Est GFR (Non-Af Amer) BUN/Creatinine Ratio (10-20) Glucose (70-99) mg/dl Lactate (0.4-2.0) mmol/L Calcium (8.5-10.1) mg/dl Magnesium (1.8-2.4) mg/dl Total Bilirubin (0.2-1) mg/dl Direct Bilirubin (0-0.2) mg/dl AST (15-37) U/L ALT (12-78) U/L Alkaline Phosphatase (45-117) U/L Troponin I (0-0.045) ng/ml Total Protein (6.4-8.2) gm/dl Albumin (3.4-5.0) gm/dl Globulin (2.5-4.0) gm/dl Albumin/Globulin Ratio (0.9-2) Vitamin B12 Folate Procalcitonin 1.14 H (0-0.5) ng/ml Urine Color Yellow Urine Appearance Clear (Clear) Urine pH 6.5 (4.5-7.5) Ur Specific Hubbard 1.005 (1.000-1.030) Urine Protein Negative (Negative) Urine Glucose (UA) Negative (Negative) Urine Ketones Negative (Negative) Urine Blood Negative (Negative) Urine Nitrite Negative (Negative) Urine Bilirubin Negative (Negative) Urine Urobilinogen Negative (Negative) Ur Leukocyte Esterase Negative (Negative) Adenovirus (PCR) Not Detected (NotDetected) Anaplasma Smear A. phagocytophilum DNA B. pertussis DNA (PCR) Not Detected (NotDetected) B.parapertussis DNA PCR Not Detected (NotDetected) Lyme Disease IgG Ab Lyme Disease IgM Ab C. pneumoniae DNA (PCR) Not Detected (NotDetected) Coronavirus OC43 (PCR) Not Detected (NotDetected) Coronavirus HKU1 (PCR) Not Detected (NotDetected) Coronavirus 229E (PCR) Not Detected (NotDetected) COVID-19 PCR (Negative) Coronavirus NL63 (PCR) Not Detected (NotDetected) Human Metapneumovir PCR Not Detected (NotDetected) Influenza Type A (PCR) Not Detected (NotDetected) Influenza Type B (PCR) Not Detected (NotDetected) M. pneumoniae (PCR) Not Detected (NotDetected) Parainfluenza 1 (PCR) Not Detected (NotDetected) Parainfluenza 2 (PCR) Not Detected (NotDetected) Parainfluenza 3 (PCR) Not Detected (NotDetected) Parainfluenza 4 (PCR) Not Detected (NotDetected) RSV (PCR) Not Detected (NotDetected) Entero/Rhino (PCR) Not Detected (NotDetected) SARS-CoV-2 RNA (RT-PCR) 01/24/20 01/24/20 01/24/20 Range/Units 18:24 18:24 18:24 WBC 23.44 H (4.8-10.8) K/uL RBC 4.05 L (4.2-5.4) M/uL Hgb 14.8 (12.0-16.0) g/dL Hct 43.5 (37-47) % MCV 107.4 H (80-100) fL MCH 36.5 H (25-34) pg MCHC 34.0 (32-36) g/dL RDW Std Deviation 50.2 H (36.4-46.3) fL RDW Coeff of Vale 12.7 (11.5-14.5) % Plt Count 145 (130-400) K/uL MPV 11.5 H (7.4-10.4) fL Immature Gran % (Auto) 0.6 % Neut % (Auto) 90.9 % Lymph % (Auto) 2.7 % Dawes % (Auto) 5.7 % Eos % (Auto) 0.0 % Baso % (Auto) 0.1 % Neut # (Auto) 21.31 H (1.4-6.5) K/uL Lymph # (Auto) 0.64 L (1.2-3.4) K/uL Dawes # (Auto) 1.33 H (0.11-0.59) K/uL Eos # (Auto) 0.00 (0-0.5) K/uL Baso # (Auto) 0.02 (0-0.2) K/uL Immature Gran # (Auto) 0.14 H (0.00-0.02) K/uL Toxic Vacuolation Dohle Bodies PT (9.0-12.0) Seconds INR (0.9-1.1) APTT (21.0-31.0) Seconds PTT Ratio Sodium 138 (136-145) mmol/L Potassium 3.9 (3.5-5.1) mmol/L Chloride 104 (98-107) mmol/L Carbon Dioxide 26 (21-32) mmol/L Anion Gap 8.0 (3-11) BUN 20 H (7-18) mg/dl Creatinine 1.28 H (0.6-1.2) mg/dl Est Cr Clr Drug Dosing 41.6 ml/min Est GFR ( Amer) 50.4 Est GFR (Non-Af Amer) 43.5 BUN/Creatinine Ratio 15.7 (10-20) Glucose 155 H (70-99) mg/dl Lactate 1.4 (0.4-2.0) mmol/L Calcium 8.6 (8.5-10.1) mg/dl Magnesium 1.7 L (1.8-2.4) mg/dl Total Bilirubin 2.2 H (0.2-1) mg/dl Direct Bilirubin (0-0.2) mg/dl AST 60 H (15-37) U/L ALT 67 (12-78) U/L Alkaline Phosphatase 138 H (45-117) U/L Troponin I < 0.015 (0-0.045) ng/ml Total Protein 8.2 (6.4-8.2) gm/dl Albumin 3.4 (3.4-5.0) gm/dl Globulin 4.8 H (2.5-4.0) gm/dl Albumin/Globulin Ratio 0.7 L (0.9-2) Vitamin B12 Folate Procalcitonin (0-0.5) ng/ml Urine Color Urine Appearance (Clear) Urine pH (4.5-7.5) Ur Specific Hubbard (1.000-1.030) Urine Protein (Negative) Urine Glucose (UA) (Negative) Urine Ketones (Negative) Urine Blood (Negative) Urine Nitrite (Negative) Urine Bilirubin (Negative) Urine Urobilinogen (Negative) Ur Leukocyte Esterase (Negative) Adenovirus (PCR) (NotDetected) Anaplasma Smear A. phagocytophilum DNA B. pertussis DNA (PCR) (NotDetected) B.parapertussis DNA PCR (NotDetected) Lyme Disease IgG Ab Lyme Disease IgM Ab C. pneumoniae DNA (PCR) (NotDetected) Coronavirus OC43 (PCR) (NotDetected) Coronavirus HKU1 (PCR) (NotDetected) Coronavirus 229E (PCR) (NotDetected) COVID-19 PCR (Negative) Coronavirus NL63 (PCR) (NotDetected) Human Metapneumovir PCR (NotDetected) Influenza Type A (PCR) (NotDetected) Influenza Type B (PCR) (NotDetected) M. pneumoniae (PCR) (NotDetected) Parainfluenza 1 (PCR) (NotDetected) Parainfluenza 2 (PCR) (NotDetected) Parainfluenza 3 (PCR) (NotDetected) Parainfluenza 4 (PCR) (NotDetected) RSV (PCR) (NotDetected) Entero/Rhino (PCR) (NotDetected) SARS-CoV-2 RNA (RT-PCR) 01/24/20 01/24/20 01/24/20 Range/Units 18:07 18:07 18:07 WBC (4.8-10.8) K/uL RBC (4.2-5.4) M/uL Hgb (12.0-16.0) g/dL Hct (37-47) % MCV (80-100) fL MCH (25-34) pg MCHC (32-36) g/dL RDW Std Deviation (36.4-46.3) fL RDW Coeff of Vale (11.5-14.5) % Plt Count (130-400) K/uL MPV (7.4-10.4) fL Immature Gran % (Auto) % Neut % (Auto) % Lymph % (Auto) % Dawes % (Auto) % Eos % (Auto) % Baso % (Auto) % Neut # (Auto) (1.4-6.5) K/uL Lymph # (Auto) (1.2-3.4) K/uL Dawes # (Auto) (0.11-0.59) K/uL Eos # (Auto) (0-0.5) K/uL Baso # (Auto) (0-0.2) K/uL Immature Gran # (Auto) (0.00-0.02) K/uL Toxic Vacuolation Dohle Bodies PT 11.9 (9.0-12.0) Seconds INR 1.1 (0.9-1.1) APTT 34.6 H (21.0-31.0) Seconds PTT Ratio 1.2 Sodium (136-145) mmol/L Potassium (3.5-5.1) mmol/L Chloride (98-107) mmol/L Carbon Dioxide (21-32) mmol/L Anion Gap (3-11) BUN (7-18) mg/dl Creatinine (0.6-1.2) mg/dl Est Cr Clr Drug Dosing ml/min Est GFR ( Amer) Est GFR (Non-Af Amer) BUN/Creatinine Ratio (10-20) Glucose (70-99) mg/dl Lactate (0.4-2.0) mmol/L Calcium (8.5-10.1) mg/dl Magnesium (1.8-2.4) mg/dl Total Bilirubin (0.2-1) mg/dl Direct Bilirubin (0-0.2) mg/dl AST (15-37) U/L ALT (12-78) U/L Alkaline Phosphatase (45-117) U/L Troponin I (0-0.045) ng/ml Total Protein (6.4-8.2) gm/dl Albumin (3.4-5.0) gm/dl Globulin (2.5-4.0) gm/dl Albumin/Globulin Ratio (0.9-2) Vitamin B12 Folate Procalcitonin (0-0.5) ng/ml Urine Color Urine Appearance (Clear) Urine pH (4.5-7.5) Ur Specific Hubbard (1.000-1.030) Urine Protein (Negative) Urine Glucose (UA) (Negative) Urine Ketones (Negative) Urine Blood (Negative) Urine Nitrite (Negative) Urine Bilirubin (Negative) Urine Urobilinogen (Negative) Ur Leukocyte Esterase (Negative) Adenovirus (PCR) (NotDetected) Anaplasma Smear A. phagocytophilum DNA B. pertussis DNA (PCR) (NotDetected) B.parapertussis DNA PCR (NotDetected) Lyme Disease IgG Ab Lyme Disease IgM Ab C. pneumoniae DNA (PCR) (NotDetected) Coronavirus OC43 (PCR) (NotDetected) Coronavirus HKU1 (PCR) (NotDetected) Coronavirus 229E (PCR) (NotDetected) COVID-19 PCR NEGATIVE (Negative) Coronavirus NL63 (PCR) (NotDetected) Human Metapneumovir PCR (NotDetected) Influenza Type A (PCR) (NotDetected) Influenza Type B (PCR) (NotDetected) M. pneumoniae (PCR) (NotDetected) Parainfluenza 1 (PCR) (NotDetected) Parainfluenza 2 (PCR) (NotDetected) Parainfluenza 3 (PCR) (NotDetected) Parainfluenza 4 (PCR) (NotDetected) RSV (PCR) (NotDetected) Entero/Rhino (PCR) (NotDetected) SARS-CoV-2 RNA (RT-PCR) Cancelled
[2020-01-25] MEDS ORDERED: CHOLECALCIFEROL 1,000 UNITS 25 MCG TAB PO SCH (09:00)
[2020-01-25] MEDS: ENOXAPARIN INJ 40 MG/0.4 ML SYR SQ SCH (09:10)
[2020-01-25] MEDS: NICOTINE 21 MG/24 HR TDSY TD SCH (09:11)
[2020-01-25] MEDS: THIAMINE HCL 100 MG TAB PO SCH (09:12)
[2020-01-25] MEDS: MAGNESIUM OXIDE 400 MG TAB PO SCH (09:12)
[2020-01-25] MEDS: FOLIC ACID 1 MG TAB PO SCH (09:12)
[2020-01-25] MEDS: MULTIVITAMIN TAB PO SCH (09:13)
[2020-01-25 09:16] LABS: Lyme Ab IgG w/WB Rflx Negative (Negative); Lyme Ab IgM w/WB Rflx Negative (Negative)
[2020-01-25 10:39] LABS: Folate (Folic Acid) > 24.00 ng/ml (>5.38); Vitamin B12 1121 pg/ml (211-911)
--- NOTE | 2020-01-25 11:39 | Pharmacy Report ---
Pharmacy Abx Initial Consult - Date of Service January 25, 2020 - Pharmacy Dosing Scope Date of Consult: 01/25/20 Consultation requested by: Dr. Abraham Pharmacy is consulted to initiate Vancomycin IV dosing therapy, order appropriate labs and adjust drug dose/frequency. - Subjective The patient is a 64 year old F admitted on 01/24/20 22:03. - Objective Height: 5 ft 4 in Weight: 71.555 kg Vital Signs (Past 12hrs): Vital Signs Temp Pulse Pulse Resp BP BP BP 01/25/20 11:13 37.9 C H 96 H 20 106/58 L 01/25/20 08:00 114 H 01/25/20 07:46 39.2 C H 105 H 19 98/60 L 01/25/20 02:16 37.8 C H 118 H 20 111/65 01/25/20 01:02 128 H 01/25/20 00:48 38.5 C H 131 H 18 163/79 H 01/25/20 00:05 88 20 110/81 01/24/20 23:36 89 14 01/24/20 23:30 90 20 105/43 L Pulse Ox 01/25/20 11:13 93 01/25/20 08:00 01/25/20 07:46 93 01/25/20 02:16 90 01/25/20 01:02 01/25/20 00:48 92 01/25/20 00:05 94 01/24/20 23:36 94 01/24/20 23:30 Lab Results (24hrs): Laboratory Tests (24 Hours) 01/25/20 01/25/20 01/24/20 07:34 07:34 18:24 WBC 16.56 H Neut # (Auto) 15.09 H Creatinine 0.97 D Est Cr Clr Drug Dosing 55.3 Procalcitonin 1.14 H 01/24/20 01/24/20 18:24 18:24 WBC 23.44 H Neut # (Auto) 21.31 H Creatinine 1.28 H Est Cr Clr Drug Dosing 41.6 Procalcitonin Micro Results: 01/24/20 18:51 Aerobic Blood Culture - Pending Blood Anaerobic Blood Culture - Pending 01/24/20 18:24 Aerobic Blood Culture - Pending Blood Anaerobic Blood Culture - Pending - Assessment & Plan Assessment 64 year old F admitted for acute diverticulitis and positive fevers. Patient is started empirically on Vancomycin. Blood cultures pending. Plan Vancomycin IV * Loading dose: 1750 mg IV [~25 mg/kg] x 1 given 4AM last night. * Patient meets criteria for vancomycin AUC dosing nomogram AUC/PARVIN is the preferred PK/PD target for vancomycin Target AUC/PARVIN = 400-600 AUC guided dosing is effective and associated with decreased risk of nephrotoxicity * Maintenance dose: 750 mg IV (10.5 mg/kg) every 12 hours * A Trough level IS NOT ORDERED CURRENTLY SINCE THERAPY IS EMPIRIC (48 HOUR DURATION). Last dose is 01/27/20 @ 0200. * If Vancomycin therapy is extended or renal function worsens, then will order a trough Vancomycin level. Pharmacy will continue to follow and will adjust dose/frequency as necessary. Thank you.
--- NOTE | 2020-01-25 13:36 | Hospitalist Progress Note ---
Date of Service January 25, 2020 Assessment & Plan (1) Sepsis: Likely 2/2/ acute diverticulitis. Also with recent outdoor exposures, so screening for tick-borne illness, pending. No skin lesions or known insect bites. (2) Diverticulitis: Acute diverticulitis improved with empiric Vanc and Zosyn. As she presented with sepsis, will cont broad abx for now pending further clinical improvement and negative cultures. Gross hematuria reported by patient this morning, question if this might have been hematochezia? with normal UA yesterday. Will repeat UA at this time. No apparent UTI. Question of enterocolic fistula on CT scan. Question of colon mass on CT scan. New liver lesion. Will obtain AFP, and MRI liver and continue current therapies. Colonoscopy recommended in 4-6 weeks. Will start clears. (3) Macrocytic anemia: 2/2 alcohol use. PCP follow-up. (4) Alcohol use: Withdrawal protocol PRN. Will restart her home scheduled Lorazepam. Stopping gabapentin per patient request. Daily folate, thiamine. (5) Liver lesion: MRI liver when clinically improved. (6) Tobacco use: Declined nicotine patch. Advised to quit. (7) Hypoxia: Likely related to sepsis syndrome vs COPD. Slight wheezing on exam today likely related to ongoing smoking. Improved overnight. No need to start steroids at this time--expect hypoxia will resolved overnight. (8) Hematuria: ? this report per patient with normal UA yesterday. Will repeat UA at this time. (9) Elevated LFTs: Possibly related to ETOH use. Cont to monitor. (10) DVT prophylaxis: Lovenox Full Code Dispo-cont PCU Kristine Khanna DO [facility] Hospitalist Admission and Anticipated Discharge Date Admission Date: January 24, 2020 Subjective 64 yo F presents with fever for 2-3 days Denies abdominal discomfort Denies changes in stools Denies GI side effects Tolerating PO Feels better this morning (HD2) Requests to stop the Neurontin Reports takes lorazepam regularly (updated after confirmed through PDMP) Reports that she [place]-last trip was on Thursday No known insent bites or skin changes noted Reports drinks two glasses wine daily Reports hematuria this morning-denies urinary urgency, pelvic discomfort, acute back pain Denies sick contacts or recent travel, COVID neg Review of Systems Review of Systems: All systems reviewed & are unremarkable except as noted in Subjective Physical Exam Physical Exam: CONSTITUTIONAL: WNWD, vitals as above, generally well- appearing but somnolent EYES: pupils are equal and round bilaterally, normal conjunctivae, no scleral icterus ENT: external ear and nose normal, oropharynx clear, MMM RESPIRATORY: clear to auscultation bilaterally, diffuse wheezes throughout, no increased respiratory effort. CARDIOVASCULAR: regular rate and rhythm, S1 and 2 heard without murmurs, gal lops or rubs, no JVD, no peripheral edema GASTROINTESTINAL: soft and nontender with some increased density to palpation over the RUQ area, no guarding. MUSCULOSKELETAL: moves all extremities equally, no gross focal deficits. SKIN: warm and dry, no rashes NEUROLOGIC: No facial palsy, no dysarthria. CN 2-12 grossly intact, normal cognition, normal speech, no tremor. No asterixis PSYCHIATRIC: alert cooperative and oriented to person, place and time. Results & Data Results & Data ([facility]) Vital Signs (Past 12 Hours) Vital Signs Temp Pulse Pulse Resp BP BP Pulse Ox 01/25/20 11:13 37.9 C H 96 H 20 106/58 L 93 01/25/20 08:00 114 H 01/25/20 07:46 39.2 C H 105 H 19 98/60 L 93 01/25/20 02:16 37.8 C H 118 H 20 111/65 90 Laboratory Results Short CBC 01/24/20 01/25/20 Range/Units 18:24 07:34 WBC 23.44 H 16.56 H (4.8-10.8) K/uL Hgb 14.8 12.1 (12.0-16.0) g/dL Hct 43.5 37.2 (37-47) % Plt Count 145 117 L (130-400) K/uL BMP 01/24/20 01/25/20 18:24 07:34 Sodium 138 141 Potassium 3.9 3.9 Chloride 104 113 H Carbon Dioxide 26 23 BUN 20 H 15 Creatinine 1.28 H 0.97 D Glucose 155 H 158 H Calcium 8.6 7.3 L D Cardiac Enzymes 01/24/20 Range/Units 18:24 Troponin I < 0.015 (0-0.045) ng/ml Liver Function 01/24/20 01/25/20 Range/Units 18:24 07:34 Total Bilirubin 2.2 H 1.8 H (0.2-1) mg/dl Direct Bilirubin 1.1 H (0-0.2) mg/dl AST 60 H 82 H (15-37) U/L ALT 67 76 (12-78) U/L Alkaline Phosphatase 138 H 105 (45-117) U/L Albumin 3.4 2.4 L (3.4-5.0) gm/dl Urine 01/24/20 Range/Units 19:52 Urine Color Yellow Urine Appearance Clear (Clear) Urine pH 6.5 (4.5-7.5) Ur Specific [place] 1.005 (1.000-1.030) Urine Protein Negative (Negative) Urine Glucose (UA) Negative (Negative) Medications Administered Current Inpatient Medications Acetaminophen (Tylenol) 650 mg PO Q4H PRN PRN Reason: Pain or Fever Stop: 02/24/20 00:42 Last Admin: 01/25/20 10:05 Dose: 650 mg Documented by: Albuterol (Ventolin Hfa) 2 puffs INH DAILY PRN; Protocol PRN Reason: Shortness Of Breath Or Wheezin Stop: 02/24/20 00:42 Atenolol (Tenormin) 12.5 mg PO HS FELIX Stop: 02/24/20 20:59 Enoxaparin Sodium (Lovenox) 40 mg SQ Q24H FELIX Stop: 02/24/20 07:59 Last Admin: 01/25/20 09:10 Dose: 40 mg Documented by: Folic Acid (Folvite) 1 mg PO DAILY FELIX Stop: 02/24/20 08:59 Last Admin: 01/25/20 09:12 Dose: 1 mg Documented by: Lorazepam (Ativan) 1 mg in 2 mls @ 2 mls/min IV UD PRN; Protocol PRN Reason: EtOH Withdrawl AWSS Score 6,7 Stop: 02/24/20 00:42 Lorazepam (Ativan) 2 mg in 4 mls @ 4 mls/min IV UD PRN; Protocol PRN Reason: EtOH Withdrawl AWSS Score 8,9 Stop: 02/24/20 00:42 Lorazepam (Ativan) 3 mg in 6 mls @ 4 mls/min IV ONCE PRN; Protocol PRN Reason: EtOH Withdrawl AWSS Score >=10 Stop: 02/24/20 00:42 Dextrose/Sodium Chloride (D5w And Nss) 1,000 mls @ 125 mls/hr IV .Q8H FELIX Stop: 02/24/20 02:59 Last Admin: 01/25/20 12:37 Dose: 125 mls/hr Documented by: Piperacillin Sod/Tazobactam (Sod 3.375 gm/ Dextrose) 115 mls @ 28.75 mls/hr IV Q8H [facility]; Protocol Stop: 02/04/20 03:59 Last Admin: 01/25/20 12:37 Dose: 28.8 mls/hr Documented by: Vancomycin HCl 750 mg/ Sodium (Chloride) 265 mls @ 125 mls/hr IV Q12H [facility]; Protocol Stop: 01/27/20 13:59 Lorazepam (Ativan) 0.5 - 1 mg PO TID PRN PRN Reason: Anxiety Stop: 02/24/20 00:42 Lorazepam (Ativan) 1 mg PO BID FELIX Stop: 02/24/20 20:59 Magnesium Oxide (Mag-Ox) 200 mg PO DAILY [facility] Stop: 02/24/20 08:59 Last Admin: 01/25/20 09:12 Dose: 200 mg Documented by: Miscellaneous (Order Awaiting Action) 1 ea N/A DAILY [facility] Stop: 02/24/20 08:59 Last Admin: 01/25/20 08:13 Dose: Not Given Documented by: Miscellaneous (Remove Nicoderm Patch) 1 ea N/A DAILY@0859 [facility] Stop: 02/24/20 08:58 Last Admin: 01/25/20 09:11 Dose: Not Given Documented by: Miscellaneous Information (Consult) 1 ea N/A UD PRN PRN Reason: Consult Stop: 02/24/20 00:50 Miscellaneous Information (Consult) 1 ea N/A UD PRN PRN Reason: Consult Stop: 02/24/20 00:50 Morphine Sulfate (Morphine Sulfate) 2 mg IV Q3H PRN PRN Reason: Pain Stop: 02/08/20 00:42 Multivitamins (Multivitamin Tab) 1 tab PO DAILY [facility] Stop: 02/24/20 08:59 Last Admin: 01/25/20 09:13 Dose: Not Given Documented by: Multivitamins/Minerals (Caltrate Plus) 1 tab PO HS [facility] Stop: 02/24/20 20:59 Nicotine (Nicoderm Cq) 21 mg TD QAM [facility]IX Stop: 02/24/20 08:59 Last Admin: 01/25/20 09:11 Dose: Not Given Documented by: Nitroglycerin (Nitrostat) 0.4 mg SL UD PRN PRN Reason: Chest Pain Stop: 02/24/20 00:42 Ondansetron HCl (Zofran) 4 mg IV Q6H PRN PRN Reason: Nausea Stop: 02/24/20 00:42 Thiamine HCl (Vitamin B-1) 100 mg PO DAILY [facility] Stop: 02/24/20 08:59 Last Admin: 01/25/20 09:12 Dose: 100 mg Documented by: Vitamin D (Vitamin D3) 1,000 units PO Q48H [facility] Stop: 02/24/20 08:59 Last Admin: 01/25/20 09:12 Dose: 1,000 units Documented by: (1) Sepsis Sepsis type: sepsis due to unspecified organism Qualified Code(s): A41.9 - Sepsis, unspecified organism
[2020-01-25] MEDS ORDERED: VANCOMYCIN HCL 750 MG in SODIUM CHLORIDE 0.9% 250 ML IV SCH (14:00)
[2020-01-25 17:28] LABS: Appearance Urine Clear (Clear); Bacteria Urine Automated Negative (Negative); Bilirubin Urine Negative (Negative); Blood Urine 1+ (Negative); Color Urine Dark Yellow; Glucose Urine UA 3+ (Negative); Ketones Urine Negative (Negative); Leukocyte Esterase Urine Negative (Negative); Nitrite Urine Negative (Negative); Protein Urine 1+ (Negative); Specific Gravity Urine 1.022 (1.000-1.030); Urobilinogen Urine Negative (Negative)
--- NOTE | 2020-01-25 19:13 | Electrocardiogram Report ---
Test Reason : Blood Pressure : / mmHG Vent. Rate : 115 BPM Atrial Rate : 115 BPM P-R Int : 152 ms QRS Dur : 078 ms QT Int : 342 ms P-R-T Axes : 077 080 064 degrees QTc Int : 473 ms Sinus tachycardia with occasional Premature ventricular complexes Otherwise normal ECG When compared with ECG of 05-APR-2018 06:26, T wave amplitude has increased in Lateral leads Confirmed by Emerson Martin ([id number]) on 01/25/2020 7:12:45 PM Referred By: REFERRED SELF Confirmed By:Devin Martin
[2020-01-25] MEDS ORDERED: CALCIUM 600MG + VIT D 400 IU TAB PO SCH (21:00)
[2020-01-25] MEDS ORDERED: ATENOLOL 25 MG TABLET PO SCH (21:00)
[2020-01-25] MEDS ORDERED: ACETAMINOPHEN 1,000 MG/100 ML VIAL IV STA (22:52)
[2020-01-25] MEDS ORDERED: METOPROLOL TARTRATE 1 MG/ML VIAL IV STA (22:54)
[2020-01-25] MEDS ORDERED: methylPREDNISolone 40 MG in SYRINGE 0 ML IV STA (22:54)
[2020-01-25] MEDS ORDERED: Nursing to Pharmacy Communication SCH (23:00)
[2020-01-25] MEDS: LORazepam 1 MG TAB PO SCH (23:07)
[2020-01-25] MEDS ORDERED: XOPENEX/ATROVENT 1.25mg/0.5MG NEB COMBO NEB STA (23:18)
[2020-01-25] MEDS ORDERED: IPRATROPIUM BROMIDE NEB SOLN 0.02% 2.5 ML VIAL INH STA (23:35)
[2020-01-25] MEDS ORDERED: LEVALBUTEROL 1.25MG/0.5ML NEB INH STA (23:35)
[2020-01-25 23:45] LABS: Partial Thromboplastin Ratio 1.3; Partial Thromboplastin Time 36.2 Seconds (21.0-31.0)
[2020-01-25 23:50] LABS: BUN Creatinine Ratio 14.4 (10-20); Calcium 7.4 mg/dl (8.5-10.1); Creatinine Clr Calc Pharmacy 53.7 ml/min; Est GFR (Non-African American) 58.7; Magnesium 1.8 mg/dl (1.8-2.4); Potassium 3.7 mmol/L (3.5-5.1)
[2020-01-25 23:54] LABS: Base Excess ABG -5.1 mEq/L (-9-1.8); HCO3 ABG 19 mmol/L (19-24); Oxygen Saturation ABG 94.6 % (90-95); PCO2 ABG 34 mmHg (35-46); PO2 ABG 71 mmHg (80-95); pH ABG 7.37 (7.35-7.45)
[2020-01-25 23:55] LABS: Allen Test POS (Pos)
[2020-01-26] MEDS ORDERED: POTASSIUM CHLORIDE 20 MEQ TABCR PO STA (00:10)
--- NOTE | 2020-01-26 00:10 | Communication Note ---
Date of Service: January 26, 2020 Patient noted to have worsening respiratory distress after coming out of bathroom as per RN. O2 sat 70s on room air. SBP 180s later 90s Patient febrile and tachycardic. Shortness of breath better than in a.m. as per patient. Usual smoker's cough. Patient denies chest pain. PPE Anxious, coherent, minimal respiratory distress Nasal cannula in place Tachycardia Expiratory wheezes Chest x-ray as per my interpretation estimated congestion right greater than left. AP Hypoxemic respiratory failure Multifactorial : ? COPD exacerbation Pulmonary congestion Tachycardia secondary to fever, possible alcohol withdrawal Supplemental O2 Baseline ABG Solu-Medrol 1 dose now Nebs RTC given bronchospasm Stop IVF (Lasix currently precluded by low BP) IV Tylenol now Continue DT precautions/CECILIA S Patient agreeable to resuming Gabapentin regimen. Will relay to AM provider.
[2020-01-26] MEDS ORDERED: GABAPENTIN 1200MG ALCOHOL WITHDRAWAL LOAD PO STA (00:11)
[2020-01-26] MEDS ORDERED: XOPENEX/ATROVENT 1.25mg/0.5MG NEB COMBO NEB SCH ×2 (01:00→07:00)
[2020-01-26] MEDS: GABAPENTIN 600 MG TAB PO SCH ×2 (01:37→07:57)
[2020-01-26] MEDS: PIPERACILLIN/TAZOBACTAM 3.375 GM in DEXTROSE 5% 100 ML IV SCH ×2 (04:04→13:54)
[2020-01-26] MEDS ORDERED: GABAPENTIN 600 MG TAB PO SCH ×2 (06:11→20:00)
--- NOTE | 2020-01-26 06:23 | Surgery Progress Note ---
Date of Service January 26, 2020 Assessment & Plan (1) Hypoxia: Patient does not have significant abdominal pain or tenderness I am doubtful her fever is coming from her diverticulitis She does have some respiratory issues and was hypoxic last evening Currently had some wheezing Abdominal MRI and assessment of her liver may be helpful Obviously would continue her antibiotics Subjective Patient appears comfortable and sleeping when I came in the room Did have a relatively high fever last p.m. Also had some respiratory issues requiring oxygen Physical Exam Physical Exam: Patient did awaken she is in no distress He does not have significant abdominal pain She has no significant tenderness on palpation Constitutional: well nourished; no acute distress Respiratory: no respiratory distress Cardiovascular: Rate/Rhythm: regular rhythm Musculoskeletal: Head/Neck/Chest: head atraumatic Skin: no rashes, warm and dry Neurologic: awake Psychiatric: Orientation: alert Results & Data Vital Signs (Past 12 Hours) Vital Signs Temp Pulse Resp BP Pulse Ox 01/26/20 03:42 36.5 C 83 18 90/53 L 93 01/26/20 00:32 96 H 18 94 01/26/20 00:30 38.2 C H 01/25/20 23:10 39.6 C H 115 H 19 115/69 94 01/25/20 22:34 38.1 C H 132 H 24 188/74 H 79 L 01/25/20 21:17 39.1 C H 01/25/20 20:21 39.2 C H 01/25/20 19:13 37.8 C H 101 H 24 116/66 92 PG Care Time/CCT Total # of Minutes Spent Total Time Spent with Patient: Total time spent is greater than 50% in coordination of care (as documented) at patient's floor/unit and/or counseling patient: Coding Level of Care Code 37468 Inpt Consult Level 4 Diagnoses Hypoxia R09.02
[2020-01-26] MEDS: LEVALBUTEROL 1.25MG/0.5ML NEB INH SCH ×2 (07:11→13:11)
[2020-01-26] MEDS: IPRATROPIUM BROMIDE NEB SOLN 0.02% 2.5 ML VIAL INH SCH ×2 (07:11→13:11)
[2020-01-26] MEDS: ENOXAPARIN INJ 40 MG/0.4 ML SYR SQ SCH (07:57)
[2020-01-26] MEDS: MAGNESIUM OXIDE 400 MG TAB PO SCH (07:58)
[2020-01-26] MEDS: FOLIC ACID 1 MG TAB PO SCH (07:58)
[2020-01-26] MEDS: MULTIVITAMIN TAB PO SCH (07:59)
[2020-01-26] MEDS: THIAMINE HCL 100 MG TAB PO SCH (07:59)
--- NOTE | 2020-01-26 08:00 | XRay Report ---
XR chest 1V portable HISTORY: Shortness of breath. COMPARISON: Chest 01/24/2020. FINDINGS: Cardiac silhouette is normal in size. No pleural effusions. No pneumothorax. Diffuse inters titial thickening, right greater than left. This favors asymmetric interstitial pulmonary edema. No f ocal lung consolidations to suggest pneumonia. IMPRESSION: Mild asymmetric pulmonary edema. ACT 112: Negative or not required by law. Electronically signed by: Ray Galvan M.D. 01/26/2020 7:59 AM
[2020-01-26] MEDS: NICOTINE 21 MG/24 HR TDSY TD SCH (08:02)
[2020-01-26] MEDS: LORazepam 1 MG TAB PO SCH (08:19)
--- NOTE | 2020-01-26 09:41 | Gastroenterology Progress Note ---
Date of Service January 26, 2020 Assessment & Plan (1) Diverticulitis: 64 year old female presenting with urinary frequency, abdominal pressure, fevers at home admitted w suspected diverticulitis, abnormal imaging ?fistula ?liver lesion MRI ordered Appreciate surgical recommendations Agree with IV ABX Will need a colonoscopy in about 4-6 weeks Last colon in 2016 w/ Diverticulosis in the sigmoid colon and in the descending, large lipoma in the descending colon and hemorrhoids Counseled on ETOH cessation ETOH withdrawal protocol Check AFP MELD 10 DF 2 Thank you for allowing us to participate in the care of this patient. Please call with any acute changes, questions or concerns. Please see addendum below with additional recommendation from my supervising physician. Admission and Anticipated Discharge Date Admission Date: January 24, 2020 Supervising Physician Co-Signing Physician Notes MRI with a probable abscess, patient to be referred to a tertiary center where drainage may be contemplated. "Enlarging 5 cm mass within the right hepatic lobe segment 7. The mass demonstrates marked restricted water diffusion, is T1 hypointense, heterogeneously T2 hyperintense and demonstrates septal enhancement. Although neoplasm cannot be excluded, a septated hepatic abscess is favored" Subjective Febrile overnight No abd pain No nausea, vomiting Is hungry. MRI ordered for abd/pelvis to follow liver lesion, rule out abscess Colonoscopy 2016: diverticulosis, lipoma tattooed Physical Exam Constitutional: no acute distress Respiratory: normal respiratory effort Cardiovascular: Rate/Rhythm: regular rate Gastrointestinal (Abdomen): Inspection/Auscultation: normal bowel sounds Percussion/Palpation: abdomen soft Skin: no rashes, warm and dry Results & Data ([facility]) Vital Signs (Past 12 Hours) Vital Signs Temp Pulse Resp BP Pulse Ox 01/26/20 08:05 36.5 C 94 H 19 92/58 L 97 01/26/20 07:11 86 20 94 01/26/20 03:42 36.5 C 83 18 90/53 L 93 01/26/20 00:32 96 H 18 94 01/26/20 00:30 38.2 C H 01/25/20 23:10 39.6 C H 115 H 19 115/69 94 01/25/20 22:34 38.1 C H 132 H 24 188/74 H 79 L
[2020-01-26 11:07] LABS: Basophils # (auto) 0.01 K/uL (0-0.2); Basophils % (auto) 0.1 %; Hematocrit (blood only) 36.3 % (37-47); Hemoglobin 11.5 g/dL (12.0-16.0); Immature Granulocytes # (auto) 0.04 K/uL (0.00-0.02); Immature Granulocytes % (auto) 0.3 %; Lymphocytes # (auto) 0.32 K/uL (1.2-3.4); Lymphocytes % (auto) 2.4 %; Mean Corpuscular Hemoglobin 35.2 pg (25-34); Mean Corpuscular Hgb Conc 31.7 g/dL (32-36); Mean Platelet Volume 11.8 fL (7.4-10.4); Monocytes # (auto) 0.42 K/uL (0.11-0.59); Monocytes % (auto) 3.2 %; Neutrophils # (auto) 12.34 K/uL (1.4-6.5); Platelet Count 120 K/uL (130-400); RDW Coefficient of Variation 13.1 % (11.5-14.5); RDW Standard Deviation 52.4 fL (36.4-46.3); Red Blood Count 3.27 M/uL (4.2-5.4); White Blood Count 13.13 K/uL (4.8-10.8)
[2020-01-26 11:22] LABS: Albumin Level 2.4 gm/dl (3.4-5.0); BUN Creatinine Ratio 14.4 (10-20); Bilirubin Direct 0.9 mg/dl (0-0.2); Calcium 7.9 mg/dl (8.5-10.1); Creatinine Clr Calc Pharmacy 43.6 ml/min; Est GFR (African American) 52.9; Est GFR (Non-African American) 45.7; Potassium 3.9 mmol/L (3.5-5.1)
[2020-01-26 11:25] LABS: Bilirubin,Total 1.3 mg/dl (0.2-1); Total Protein 6.2 gm/dl (6.4-8.2)
[2020-01-26 11:35] LABS: Macrocytosis Present
[2020-01-26 11:54] LABS: INR 1.2 (0.9-1.1); Partial Thromboplastin Ratio 1.4; Partial Thromboplastin Time 38.7 Seconds (21.0-31.0); Prothrombin Time 12.8 Seconds (9.0-12.0)
[2020-01-26] MEDS ORDERED: GADOXETATE DISODIUM IV PRN (13:32)
[2020-01-26] MEDS ORDERED: FAMOTIDINE 20 MG in SYRINGE 3 ML IV PRN (14:00)
--- NOTE | 2020-01-26 14:01 | Magnetic Resonance Report ---
MR abdomen wo/w con CLINICAL HISTORY: Hepatic mass on noncontrast CT scan. FEVER. TECHNIQUE: Imaging was performed prior to and following IV contrast injection. Patient was scanned be fore and after the administration of 10 cc of intravenous Eovist COMPARISON STUDY: CT scan dated 01/24/2020, CT scan dated 04/04/2018 FINDINGS: Images were acquired in the axial and coronal planes. There are small bilateral pleural effusions with associated basilar atelectasis/consolidation. No gallbladder abnormalities are visualized. No pancreatic lesions are visualized. The spleen is the upper limits of normal in size. No adrenal masses are visualized. There is a 33 mm right renal cyst. There is a 5 cm mass within the right hepatic lobe, segment 7. This mass demonstrates restricted wate r diffusion. The mass is T1 hypointense, heterogeneously T2 hyperintense, and appears septated with s eptal enhancement. This lesion appears slightly larger than the prior CT scan. Although nonspecific, a septated hepatic abscess is favored over neoplasm. IMPRESSION: 1. Enlarging 5 cm mass within the right hepatic lobe segment 7. The mass demonstrates marked restrict ed water diffusion, is T1 hypointense, heterogeneously T2 hyperintense and demonstrates septal enhanc ement. Although neoplasm cannot be excluded, a septated hepatic abscess is favored 2. Small bilateral pleural effusions with basilar parenchymal opacities likely atelectatic 3. 33 mm right renal cyst ACT 112: Negative or not required by law. Electronically signed by: Reese Gurrola M.D. 01/26/2020 2:00 PM
--- NOTE | 2020-01-26 18:09 | Discharge Summary ---
Date of Service January 26, 2020 Admission HPI Per Admitting Provider HISTORY OF PRESENT ILLNESS: This is a 64-year-old female with past medical history significant for hyperlipidemia, hypokalemia, hypomagnesemia, history of acute respiratory failure, multiple lung nodules on CT, restrictive lung disease, hypertension, alcoholic cirrhosis of liver, history of biliary disease, bilateral sacroiliitis, depression, generalized anxiety disorder, tobacco disorder, chronic alcoholism, who presents with fever. The patient lives alone. Yesterday night she had temperature of 104 degrees and she thought she might had bladder infection as she was frequently urinating and lower abdominal discomfort. Denies any shortness of breath. She has chronic cough from her smoking. She has some runny nose early in the morning, that is usual for her. Denies any shortness of breath, no chest pain. Has some headache. No blurred visions, no earache, no runny nose, no difficulty swallowing. No nausea, no blood in the stools or black stools. Currently resting comfortably and hemodynamically stable. The patient was worried about COVID. Since her score was low, COVID test was sent out of the hospital. Imaging studies showed diverticulitis. Admission Exam Per Admitting Provider PHYSICAL EXAMINATION: GENERAL: The patient is of moderate build, not in acute distress. VITAL SIGNS: Temperature T-max 38, pulse 99, respiratory rate 23, blood pressure 118/65, and oxygen 95% on 2 liters. HEENT: No pallor, no icterus. NECK: No JVD, no neck masses. CARDIOVASCULAR: S1, S2 heard, regular rate and rhythm, no murmur, no gallop. RESPIRATORY SYSTEM: Normal AP diameter. No accessory muscle use. No wheezing, no crackles. ABDOMEN: Soft, bowel sounds present. Mild abdominal discomfort. No guarding, no rigidity, no distention. CENTRAL NERVOUS SYSTEM: Cranial nerves II-XII grossly intact, nonfocal. EXTREMITIES: No edema, no erythema. Principal Diagnosis Sepsis Liver Abscess Diverticulitis Microscopic hematuria Diarrhea Hypoxia Macrocytic anemia Alcohol use Tobacco use Gross hematuria Elevated transaminases Discharge Exam CONSTITUTIONAL: WNWD, vitals as above, generally alert and well-appearing. EYES: pupils are equal and round bilaterally, normal conjunctivae, no scleral icterus ENT: external ear and nose normal, oropharynx clear, MMM RESPIRATORY: clear to auscultation bilaterally, no increased respiratory effort. CARDIOVASCULAR: regular rate and rhythm, S1 and 2 heard without murmurs, dawn ps or rubs, no JVD, no peripheral edema GASTROINTESTINAL: soft and nontender with some increased density to palpation over the RUQ area, no guarding. MUSCULOSKELETAL: moves all extremities equally, no gross focal deficits. SKIN: warm and dry, no rashes NEUROLOGIC: No facial palsy, no dysarthria. CN 2-12 grossly intact, normal cognition, normal speech, no tremor. No asterixis PSYCHIATRIC: alert cooperative and oriented to person, place and time. Discharge Data Allergies Allergy/AdvReac Type Severity Reaction Status Date / Time No Known Allergies Allergy Verified 01/24/20 19:55 Consultations 01/24/20 20:16 ED Decision to Admit Stat 01/25/20 00:43 Consult Case Management - Discharge Planning Routine 01/25/20 06:36 Consult Gastroenterology Routine 01/25/20 08:00 Consult General Surgery Routine 01/26/20 11:18 Consult Infectious Diseases Routine 01/26/20 15:13 Burn CD for patient Stat Ordered Studies 01/24/20 18:24 CT abd pelvis wo con Stat 01/26/20 08:45 MR abdomen wo/w con Urgent CLINICAL HISTORY: Hepatic mass on noncontrast CT scan. FEVER. TECHNIQUE: Imaging was performed prior to and following IV contrast injection. Patient was scanned before and after the administration of 10 cc of intravenous Eovist COMPARISON STUDY: CT scan dated 01/24/2020, CT scan dated 04/04/2018 FINDINGS: Images were acquired in the axial and coronal planes. There are small bilateral pleural effusions with associated basilar atelectasis/consolidation. No gallbladder abnormalities are visualized. No pancreatic lesions are visualized. The spleen is the upper limits of normal in size. No adrenal masses are visualized. There is a 33 mm right renal cyst. There is a 5 cm mass within the right hepatic lobe, segment 7. This mass demonstrates restricted water diffusion. The mass is T1 hypointense, heterogeneously T2 hyperintense, and appears septated with septal enhancement. This lesion appears slightly larger than the prior CT scan. Although nonspecific, a septated hepatic abscess is favored over neoplasm. IMPRESSION: 1. Enlarging 5 cm mass within the right hepatic lobe segment 7. The mass demonstrates marked restricted water diffusion, is T1 hypointense, het erogeneously T2 hyperintense and demonstrates septal enhancement. Although neoplasm cannot be excluded, a septated hepatic abscess is favored 2. Small bilateral pleural effusions with basilar parenchymal opacities likely atelectatic 3. 33 mm right renal cyst Hospital Course (1) Sepsis: (2) Liver abscess: (3) Diverticulitis: (4) Macrocytic anemia: (5) Alcohol use: (6) Tobacco use: (7) Hypoxia: (8) Hematuria: (9) Elevated LFTs: 64-year-old female with a history of alcohol use and smoking presented with reported high fevers for 2 to 3 days and some nonspecific abdominal discomfort. Initial work-up included a CT of the abdomen pelvis without contrast revealing an abnormal appearance the mid sigmoid colon which demon strated mild wall thickening and minimal pericolonic fat stranding raising the possibility of an acute on chronic diverticulitis versus an underlying colonic mass. GI was consulted and recommended colonoscopy in 4 to [address] revealed mild pericolonic fat stranding in the distal descending colon which may represent an additional site of mild acute diverticulitis. There was a 3.8 cm hypodense lesion in the right liver concerning for metastatic lesion versus abscess. 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 The patient notably had an oxygen requirement and initial chest x-ray revealed some interstitial edema with increased asymmetric edema the following day. She was admitted to the hospitalist service and placed on Zosyn and vancomycin. Vancomycin was discontinued after MRSA screen was negative. General surgery was consulted and felt the diagnosis of diverticulitis was reasonable, however, there was concern that the level of fever and clinical illness did not match the severity of the diverticulitis diagnosis. With an elevated prothrombin time and a concern for hepatic mass attention was directed at the liver and an MRI of the liver was performed. This clearly showed a 5 cm abscess. On questioning the patient reports she had seen a liver specialist in the past and was told she had "hepatic fibrosis" but not cirrhosis. She denies ever having a liver biopsy. Despite broad-spectrum antibiotics she remained febrile and hypotensive. Transfer to tertiary care facility was thought best for continued work-up and treatment of this liver abscess, more likely the cause of her sepsis and high fevers. Travel history was negative however, she did report [place]ing a [place] with her family as recently as last week. A COVID PCR was checked and negative on 01/23. At time of discharge she was hemodynamically stable and afebrile with slightly lower blood pressure in the systolic range of low 90s. She did experience significant withdrawal from alcohol during her hospital stay and did not become confused. She was transferred to [facility] for infectious disease evaluation and further work-up and treatment. Of note, her liver enzymes were mildly elevated to an AST 80, ALT 125 on discharge. On day of discharge INR was 1.2, PT 12.8, APTT 38.7. Creatinine was mildly bumped at 1.23 from a baseline of 0.6. As a result of this acute kidney injury, Lasix was not given, but was entertained in the setting of pulmonary edema. Additionally on day of discharge Lasix was not given as the patient was undergoing an MRI where frequent urination was not going to be helpful, and then shortly after was set to transfer out. This may clearly be considered at receiving facility for improvement of her hypoxia likely secondary to reactive pulmonary edema from her abscess and sepsis syndrome. Total bilirubin was 1.3, direct bilirubin 0.9, total protein 6.2 albumin 2.4. Also of note she had a clear urinalysis on 714 but then reported gross hematuria the following morning. A repeat urinalysis on 01/24 revealed 1+ protein, 3+ glucose, 1+ blood with 10- 30 red blood cells no bacteria and 5-10 epis. She also reported diarrhea with a stool culture pending at time of discharge but C. difficile negative. She had approximately 3 episodes of diarrhea on day of discharge. She does report having Giardia infection in the past and a Giardia antigen was pending at the time of discharge. With antibiotic therapy her white blood cell count improved from 23.44-13.13 on discharge. Macrocytosis was seen on CBC. Initial platelet count was 145 on admission and 128 on time of discharge with a normal baseline platelet level in April 2018 per records. Close follow-up with primary care is recommended. Current Inpatient Medications Acetaminophen (Tylenol) 650 mg PO Q4H PRN PRN Reason: Pain or Fever Stop: 02/24/20 00:42 Last Admin: 01/25/20 20:25 Dose: 650 mg Documented by: Atenolol (Tenormin) 12.5 mg PO HS FELIX Stop: 02/24/20 20:59 Last Admin: 01/25/20 20:17 Dose: 12.5 mg Documented by: Enoxaparin Sodium (Lovenox) 40 mg SQ Q24H FELIX Stop: 02/24/20 07:59 Last Admin: 01/26/20 07:57 Dose: 40 mg Documented by: Folic Acid (Folvite) 1 mg PO DAILY FELIX Stop: 02/24/20 08:59 Last Admin: 01/26/20 07:58 Dose: 1 mg Documented by: Gadoxetate Disodium (Eovist) 10 ml IV ONCE PRN PRN Reason: Interaction Checking Stop: 01/30/20 13:31 Last Admin: 01/26/20 13:33 Dose: 10 ml Documented by: Lorazepam (Ativan) 1 mg in 2 mls @ 2 mls/min IV UD PRN; Protocol PRN Reason: EtOH Withdrawl AWSS Score 6,7 Stop: 02/24/20 00:42 Lorazepam (Ativan) 2 mg in 4 mls @ 4 mls/min IV UD PRN; Protocol PRN Reason: EtOH Withdrawl AWSS Score 8,9 Stop: 02/24/20 00:42 Lorazepam (Ativan) 3 mg in 6 mls @ 4 mls/min IV ONCE PRN; Protocol PRN Reason: EtOH Withdrawl AWSS Score >=10 Stop: 02/24/20 00:42 Piperacillin Sod/Tazobactam (Sod 3.375 gm/ Dextrose) 115 mls @ 28.75 mls/hr IV Q8H FELIX; Protocol Stop: 02/04/20 03:59 Last Infusion: 01/26/20 17:54 Dose: Infused Documented by: Famotidine 20 mg/ Syringe 5 mls @ 2.5 mls/min IV Q12H PRN PRN Reason: heart burn Stop: 02/25/20 13:59 Ipratropium [place] (Atrovent 0.02% 0.5mg/2.5ml) 0.5 mg INH Q6R FELIX Stop: 02/25/20 00:59 Last Admin: 01/26/20 13:11 Dose: Not Given Documented by: Levalbuterol HCl (Xopenex 1.25mg/0.5ml Neb) 1.25 mg INH Q6R FELIX Stop: 02/25/20 00:59 Last Admin: 01/26/20 13:11 Dose: Not Given Documented by: Lorazepam (Ativan) 0.5 - 1 mg PO TID PRN PRN Reason: Anxiety Stop: 02/24/20 00:42 Last Admin: 01/25/20 17:22 Dose: 1 mg Documented by: Lorazepam (Ativan) 1 mg PO BID [facility] Stop: 02/24/20 20:59 Last Admin: 01/26/20 08:19 Dose: 1 mg Documented by: Magnesium Oxide (Mag-Ox) 200 mg PO DAILY FELIX Stop: 02/24/20 08:59 Last Admin: 01/26/20 07:58 Dose: 200 mg Documented by: Miscellaneous (Order Awaiting Action) 1 ea N/A DAILY FELIX Stop: 02/24/20 08:59 Last Admin: 01/26/20 08:02 Dose: Not Given Documented by: Miscellaneous (Remove Nicoderm Patch) 1 ea N/A DAILY@0859 [facility] Stop: 02/24/20 08:58 Last Admin: 01/26/20 08:03 Dose: Not Given Documented by: Miscellaneous Information (Consult) 1 ea N/A UD PRN PRN Reason: Consult Stop: 02/24/20 00:50 Morphine Sulfate (Morphine Sulfate) 2 mg IV Q3H PRN PRN Reason: Pain Stop: 02/08/20 00:42 Multivitamins (Multivitamin Tab) 1 tab PO DAILY [facility] Stop: 02/24/20 08:59 Last Admin: 01/26/20 07:59 Dose: 1 tab Documented by: Multivitamins/Minerals (Caltrate Plus) 1 tab PO HS [facility] Stop: 02/24/20 20:59 Last Admin: 01/25/20 20:17 Dose: 1 tab Documented by: Nicotine (Nicoderm Cq) 21 mg TD QAM [facility] Stop: 02/24/20 08:59 Last Admin: 01/26/20 08:02 Dose: Not Given Documented by: Nitroglycerin (Nitrostat) 0.4 mg SL UD PRN PRN Reason: Chest Pain Stop: 02/24/20 00:42 Ondansetron HCl (Zofran) 4 mg IV Q6H PRN PRN Reason: Nausea Stop: 02/24/20 00:42 Thiamine HCl (Vitamin B-1) 100 mg PO DAILY [facility] Stop: 02/24/20 08:59 Last Admin: 01/26/20 07:59 Dose: 100 mg Documented by: Vitamin D (Vitamin D3) 1,000 units PO Q48H FELIX Stop: 02/24/20 08:59 Last Admin: 01/25/20 09:12 Dose: 1,000 units Documented by: Total Time Total Time Spent Total Time Spent (In Minutes): 60 Total Time Includes: Examination of the Patient, Discharge Planning, Medication Reconciliation and Communication With Other Providers Discharge Plan Discharge Items Patient Disposition: Transfer Acute Care Hospital Reason For Visit: FEVER Discharge Diagnosis: Sepsis Liver Abscess Diverticulitis Microscopic hematuria Diarrhea Hypoxia Macrocytic anemia Alcohol use Tobacco use Gross hematuria Elevated transaminases Condition on Discharge: Fair Activity: Resume your previous activity Non-emergency contact: Primary Care Provider Call non-emergency contact if: you have any medication questions, your symptoms worsen, your pain is not controlled, your pain is worsening, your pain is unusual for you, your pain is concerning for you and you have a fever Follow-up/Referrals: Ct Morales DO [Primary Care Provider] - Diet: Regular Addtl Attending Provider Instructions: Gregory, You are being transferred to [facility] in [place], [place] for further workup and treatment of your liver abscess. It is recommended that you follow-up with your primary care doctor within 1 week of discharge from the hospital. It was a pleasure taking care of you! Please call if you have any questions or problems. You can reach a [facility] hospitalist on duty at [facility] 24 hours a day by calling [phone]. Take care of yourself. Kristine Khanna DO [facility] Hospitalist Pending Studies at Discharge: Yes Studies:: Stool culture and finalized blood cultures pending at discharge. Stand-Alone Forms: My [facility] Skilled Items Patient informed of condition?: Yes DNR: No Discharge Level of Care: Other Communicable Disease: No Discharge Prognosis: Stable Lines: Peripheral IV Urinary Catheter: No Medications and DC Order Prescriptions: Continued atenolol 25 mg Tablet 12.5 mg PO HS RF: 0 lorazepam 1 mg Tablet 1 mg PO BID RF: 0 cholecalciferol (vitamin D3) [Vitamin D3] 1,000 unit Capsule 1,000 units PO Q2D RF: 0 calcium carbonate-vitamin D3 600 mg(1,500mg) -800 unit Tablet 1 tab PO HS RF: 0 multivitamin tablet 1 tab PO DAILY Qty: 30 RF: 0 thiamine HCl (vitamin B1) 100 mg tablet 100 mg PO DAILY Qty: 30 RF: 0 folic acid 1 mg tablet 1 mg PO DAILY Qty: 30 RF: 5 ibuprofen 200 mg Tablet 200 mg PO Q6H PRN (Reason: Fever Or Pain) RF: 0 magnesium 250 mg Tablet 125 mg PO DAILY RF: 0 albuterol sulfate 90 mcg/actuation Hfa Aerosol Inhaler 2 puff INHALATION DIRECTED PRN (Reason: Shortness Of Breath Or Wheezing) RF: 0 Rosacea Cream 1 applic topical DIRECTED RF: 0 Discharge Orders: Discharge Order (Routine); Ordered 01/26/20 Ordered By: Kristine Alexis/Rush Patient Handouts: What is Hematuria?, Hematuria: Possible Causes Admission Data Admit Date/Time: 01/24/20 22:03 Attending Provider: Kristine Khanna Admit Provider: Mode Abraham Primary Care Provider: Ct Morales Other Providers: Mode Abraham ; Skip Gutierrez ; Conchis Rodríguez ; Jeremiah Olmedo ; Cornelia Andersen ; Sotero Kelsey ; Johnny Khan ; Jana Mckinnon ; Mario Alberto Yo ; Jody Vargas ; Lawrence Saenz Jr ; Linn Diggs ; Ashley Pacheco ; Felipa Andersen ; Nirav Still ; Malinda Pierre ; Alessandro Vallejo I. ; Ford Zavaleta II ; Rajani Simon ; Skip Fraga
[2020-01-27] MEDS ORDERED: GABAPENTIN 600 MG TAB PO SCH
[2020-01-28] MEDS ORDERED: GABAPENTIN 600 MG TAB PO SCH ×2 (08:00→12:00)
== END 2020-01-26 19:43 | disposition short-term general hospital (02) | DRG 871 ==
LOC: ED 16:36 → 2W 22:03 → 2S 01-25 00:05

== ENCOUNTER 2022-08-29 18:15 | Inpatient (IN) ==
[2022-08-29] MEDS ORDERED: PIPERACILLIN/TAZOBACTAM 4.5 GM/120 ML BAG IV ONE ×2 (18:28→22:34)
[2022-08-29] MEDS ORDERED: SODIUM CHLORIDE 0.9% 1000ML 1,000 ML IV STA (18:28)
--- NOTE | 2022-08-29 18:28 | ED Triage Note ---
Date of Service August 29, 2022 History of Present Illness This patient was briefly evaluated while in triage. An abbreviated physical exam was performed. This patient is a 67-year-old Female with past medical history of diverticular who presents to the ED for evaluation of an abnormal CT scan. The patient reports that she had a CT scan performed today showing diverticulitis with abscess. She also was found to have an abscess on her liver, which she reports is not new. The CT was ordered by her PCP, Dr. Woods. Patient denies any fever or chills. She also currently denies any pain. The patient reports that her abdominal pain started 3 weeks ago. Physical Exam CONSTITUTIONAL: Healthy and well nourished. Patient does not appear toxic or in any acute distress HEENT: No sclericterus or conjunctival injection/pallor RESPIRATORY: Clear to auscultation bilaterally with no wheezing, crackles, rhonchi or stridor. CARDIOVASCULAR: Regular rate and rhythm with no murmurs, rubs or gallops. GASTROINTESTINAL: Bowel sounds present in all quadrants. INTEGUMENTARY: No rash or other significant dermatologic conditions noted. HEMATOLOGIC: No ecchymosis or petechiae. PSYCHIATRIC: Positive affect. NEUROLOGIC: No focal neurologic deficits noted. Initial orders for labs and / or imaging were placed and patient was placed in the waiting area until a bed is available. Please see further documentation for the full ED course.
[2022-08-29 19:51] LABS: Basophils # (auto) 0.02 K/uL (0-0.2); Basophils % (auto) 0.3 %; Eosinophils # (auto) 0.11 K/uL (0-0.50); Eosinophils % (auto) 1.8 %; Hematocrit (blood only) 42.4 % (37.0-47.0); Hemoglobin 14.2 g/dl (12.0-16.0); Immature Granulocytes # (auto) 0.01 K/uL (0.01-0.20); Immature Granulocytes % (auto) 0.2 %; Lymphocytes # (auto) 1.52 K/uL (1.2-3.4); Lymphocytes % (auto) 24.5 %; Mean Corpuscular Hemoglobin 35.9 pg (25.0-34.0); Mean Corpuscular Hgb Conc 33.5 g/dL (32.0-36.0); Mean Corpuscular Volume 107.3 fL (80.0-100.0); Monocytes # (auto) 0.56 K/uL (0.11-0.59); Neutrophils # (auto) 3.98 K/uL (1.40-6.50); Neutrophils % (auto) 64.2 %; Platelet Count 166 K/uL (130-400); RDW Coefficient of Variation 13.7 % (11.5-14.5); Red Blood Count 3.95 M/uL (4.20-5.40)
[2022-08-29 20:11] LABS: Albumin Globulin Ratio 1.2 (0.9-2); Albumin Level 4.3 gm/dl (3.4-5.0); BUN Creatinine Ratio 12.3 (10-20); Bilirubin,Total 0.9 mg/dl (0.2-1.0); Calcium 9.3 mg/dl (8.5-10.1); Creatinine Clr Calc Pharmacy 70.5 ml/min; Est GFR (African American) 97.4 ml/min; Globulin 3.5 gm/dl (2.5-4.0); Potassium 3.6 mmol/L (3.5-5.1); Total Protein 7.8 gm/dl (6.0-8.3)
[2022-08-29 22:32] LABS: Appearance Urine Clear (Clear); Bilirubin Urine Negative (Negative); Blood Urine Negative (Negative); Color Urine Yellow; Glucose Urine UA Negative (Negative); Ketones Urine Negative (Negative); Leukocyte Esterase Urine Negative (Negative); Nitrite Urine Negative (Negative); Protein Urine Negative (Negative); Specific Gravity Urine 1.018 (1.000-1.030); Urobilinogen Urine Negative (Negative)
[2022-08-29] MEDS ORDERED: MULTI-VITAMIN INFUSION 10 ML, THIAMINE HCL 100 MG, FOLIC ACID 1 MG in SODIUM CHLORIDE 0... IV ONE (22:34)
[2022-08-29] MEDS: DAPTOmycin 375 MG in SYRINGE 0 ML IV SCH (23:26)
--- NOTE | 2022-08-29 23:27 | Surgery Consultation ---
Date of Consultation August 29, 2022 Assessment & Plan (1) Liver abscess: (2) Diverticulitis: I discussed with the treating emergency room physician and he is having the hospitalist admit the patient. We recommend proceeding as follows: Provide analgesics Provide antiemetics Implement hydration measures with IV fluids Implement n.p.o. status Continue antibiotics. The patient has been initiated on antibiotics in the form of Zosyn and daptomycin I have discussed the above conservative treatment measures with the patient and she is willing to proceed in this manner. I did discuss with her that if surgical intervention would be required in the acute phase she would likely require a colostomy. We will therefore attempt to try to alleviate this problem with conservative measures as noted above Concerning patient's potential liver abscesses we will monitor these clinically as they are likely too small to undergo any percutaneous drainage at this time Additional recommendations be forthcoming based on her clinical course as it unfolds Supervising Physician Co-Signing Physician Notes As per Chris Saenz physician family practice physician assistant We will try to obtain the actual CT scans so that we can be reviewed to compare with the previous work-up that she had in 2019 where at that time she had evidence of hepatic abscesses History of Present Illness Reason for Consultation: Diverticulitis History of Present Illness This is a 67-year-old female who was referred to the emergency department [facility] from her PCP. Patient notes that she has been having 2 weeks of constipation and worsening lower abdominal pain. She notes that the pain does not radiate and does not have any other modifying factors. She has not had any fevers, shakes, or chills. She denies any nausea or vomiting. She denies any hematochezia or melanotic stools. She does note that she has a history of diverticulitis in the past she believes in 2019. She also notes that she has had liver abscesses that were drained percutaneously also believes in 2019. She has had prior abdominal surgeries in the form of multiple C-sections. As an outpatient the patient did have a CT scan of the abdomen and pelvis. The patient was noted to have some ill-defined hypoattenuating hepatic lesions that were new from her CAT scan from 2019. She was noted to have a 7 mm right hepatic lobe lesion, 17 mm right hepatic dome lesion, and a 6 mm right hepatic lobe lesion. These were concerning for liver abscesses. In addition the patient was noted to have acute sigmoid diverticulitis with a 2.6 cm intramural abscess. There is no evidence of fistula. There was no comment on any free air. Since arrival to [facility] the patient has had labs which included a CBC her white blood cell count, hemoglobin, hematocrit, platelet count were normal. Chemistry profile showed sodium, potassium, BUN, and creatinine were normal. There is no elevation of LFTs or lipase. Urinalysis was not concerning for infection. A COVID test was negative. Since arrival to the emergency department the patient has received 1 L of normal saline solution and antibiotics in the form of daptomycin and Zosyn. At the time of my interview the patient was resting comfortably in bed and she was in no distress. Allergies Allergy/AdvReac Type Severity Reaction Status Date / Time No Known Allergies Allergy Verified 01/24/20 19:55 Home Medications Medication Instructions Recorded Confirmed Type calcium carbonate 600 mg-vitamin 1 tab PO HS 04/02/18 01/24/20 History D3 20 mcg (800 unit) tablet cholecalciferol (vitamin D3) 25 1,000 units PO Q2D 04/02/18 01/24/20 History mcg (1,000 unit) capsule (Vitamin D3) lorazepam 1 mg tablet 0.5 mg PO TID PRN Anxiety 04/02/18 01/25/20 History folic acid 1 mg tablet 1 mg PO DAILY #30 tabs 04/13/18 01/24/20 Rx multivitamin 1 tab PO DAILY #30 tabs 04/13/18 01/24/20 Rx thiamine HCl (vitamin B1) 100 mg 100 mg PO DAILY #30 tabs 04/13/18 01/24/20 Rx tablet Rosacea Cream 1 applic topical DIRECTED 01/24/20 01/24/20 History ROSACEA albuterol sulfate 90 mcg/actuation 2 puff inhalation DIRECTED PRN 01/24/20 01/24/20 History aerosol inhaler Shortness Of Breath Or Wheezing magnesium 250 mg tablet 125 mg PO DAILY 01/24/20 01/24/20 History famotidine 20 mg tablet 20 mg PO DAILY 08/30/22 08/30/22 History fluticasone fur. 100 mcg-umeclid 1 inh inhalation DAILY 08/30/22 08/30/22 History 62.5 mcg-vilant 25 mcg inhalat.powder (Trelegy Ellipta) Patient History Medical History (Updated 08/30/22 @ 01:41 by Ayan Fuentes MD) AA (alcohol abuse) Alcohol use Anxiety Depression Diverticulosis of colon Fatty liver GERD (gastroesophageal reflux disease) Hx of ectopic Hyperlipidemia Hypertension Hypokalemia Respiratory failure, acute Tobacco abuse Transaminitis Surgical History H/O wisdom tooth extraction H/O: History of oophorectomy, unilateral Hx of eye surgery Family History Other No significant family history Social History Smoking Status: Current every day smoker Tobacco Type: Cigarettes Cigarettes Per Day: one pack; Second Hand Exposure: Yes; Do You Dip or Chew Tobacco: No; Tobacco Cessation Education Requested by Patient: No Hx Alcohol Use: Yes Alcohol type: hard liquor Hx Substance Use: No Preferred Language: Afghan Communication Ability: Effective Jalousie Installer Required: No Beliefs That Will Affect Care: None marital status: Single Current Living Situation: Alone Other Information That Helps Us Care for You: No Feels Safe at Home: Yes Safety Concerns: Feels Safe At This Time Assistive Devices: Glasses Review of Systems Constitutional: no fever and no chills Eyes: no eye pain Ear, Nose, Mouth, Throat: no ear pain Respiratory: no cough and no dyspnea Cardiovascular: no chest pain Gastrointestinal: as per Subjective / HPI Genitourinary: no dysuria Musculoskeletal: no back pain Integumentary: no rash Neurologic: no localized weakness Physical Exam Constitutional: WD/WN, vitals as above Eyes: no conjunctival abnormality Wears glasses ENMT: Ears: no hearing impairment and no external ear abnormality Mouth: no oropharynx abnormality Neck: trachea midline Respiratory: normal respiratory effort; no respiratory distress and no labored breathing Cardiovascular: Rate/Rhythm: regular rate and regular rhythm Vessels: dorsalis pedis pulses present Gastrointestinal (Abdomen): Abdomen is soft, nonrigid, nondistended. There is no rebound tenderness or guarding. Patient did have some slight tenderness with palpation in the lower abdomen greatest in the left lower quadrant Musculoskeletal: No calf tenderness Skin: no rashes Neurologic: moves all extremities Psychiatric: A+Ox3, euthymic affect Results & Data ([facility]) Vital Signs (Past 12 Hours) Vital Signs Temp Pulse Resp BP Pulse Ox O2 Del Method 08/29/22 22:50 93 H 23 08/29/22 22:40 96 H 23 90 08/29/22 22:30 99 H 22 126/71 90 08/29/22 22:25 100 H 8 L 08/29/22 21:40 104 H 18 94 08/29/22 21:30 99 H 21 92 08/29/22 21:20 99 H 21 92 08/29/22 21:10 99 H 22 94 08/29/22 21:00 103 H 21 94 08/29/22 20:53 102 H 08/29/22 20:53 101 H 24 126/71 93 08/29/22 20:42 97 08/29/22 18:24 37.2 C 106 H 20 126/79 95 Room Air PG Care Time/CCT Total # of Minutes Spent Total Time Spent with Patient: Total time spent is greater than 50% in coordination of care (as documented) at patient's floor/unit and/or counseling patient: Coding Level of Care Code 07943 INT INP/OBS CARE 3/75MIN Diagnoses Liver abscess K75.0 Diverticulitis K57.92
[2022-08-29 23:37] LABS: Prothrombin Time 10.6 Seconds (9.0-12.0)
--- NOTE | 2022-08-30 00:43 | Emergency Department Note ---
Impression & Plan Diverticulitis of large intestine with abscess, Lesion of liver, Alcohol dependence ED Provider Note NAME: VIOLA VANG AGE: 67 SEX: F ARRIVES VIA: Walk-In INFORMANT: Patient ED PROVIDER(S): Ayan Fuentes MD CHIEF COMPLAINT: abnormal outpatient CT, diverticulitis with intramural abscess, small liver abscesses, referred PLAN: Disposition: Admit MEDICAL DECISION MAKING: The patient is a pleasant 67-year-old woman with a past medical history of cirrhosis, alcohol dependence, hypertension, hyperlipidemia who presents to emergency department referred by her PCPs office for evaluation and management of diverticulitis identified on [facility] CT imaging today which demonstrated 2.6 cm intramural abscess in the sigmoid colon as well as note of multiple s ubcentimeter liver lesions that are suspicious for abscesses in the setting of the patient having a history of liver abscess in January 2020. The patient reports feeling mild lower abdominal pressure which led to her outpatient testing. She denies any fevers, chills, cough, congestion, nausea/vomiting. She denies any urinary symptoms. Of note, the patient did arrive to emergency department during time of high volume, acuity and prolonged emergency department waiting times. Critical pathways initiated from triage. On arrival the patient is no acute distress, afebrile stable vital signs. She appears clinically dry. She has mild lower abdominal discomfort without discrete tenderness. There is no guarding or rebound. WBC, H/H and platelets within normal limits. Chemistry without metabolic acidosis. Electrolytes and LFTs without significant abnormality. Lipase not elevated. Procalcitonin is undetectable. Lactic acid 1.9, within normal limits. UA without evidence of infection. Medical alcohol is undetectable. COVID-19 RNA, CATHERINE test was negative. Patient was ordered for IV Zosyn from triage and so was administered prior to blood cultures being drawn. Blood cultures subsequently obtained and additional coverage with daptomycin administered. Case was discussed with Dr. Abraham, [facility] hospitalist, who will evaluate the patient for admission. Case additionally discussed with Chris Saenz, General surgery PAC with Dr. Anne, general surgery on-call. Triage Nursing notes reviewed and agree them. Prior/outside medical records reviewed Vital Signs: reviewed Differential diagnosis: Gastroenteritis, food borne illness, infections, appendicitis, diverticulitis, inflammatory bowel disease, obstruction, GI bleed, biliary pathology, volvulus, as well as other pathologies. ER treatment provided: See below. Diagnostics interpreted by me: Cardiac Monitoring: An order for continuous cardiac monitoring was placed and demonstrated normal sinus rhythm, 93 bpm, no ectopy. Laboratory studies: See below Imaging studies: See below Consultation(s): Dr. Abraham, [facility] hospitalist. Chris Saenz, General surgery PAC with Dr. Anne, general surgery on-call. HPI: The patient is a pleasant 67-year-old woman with a past medical history of cirrhosis, alcohol dependence, hypertension, hyperlipidemia who presents to emergency department referred by her PCPs office for evaluation and management of diverticulitis identified on [facility] CT imaging today which demonstrated 2.6 cm intramural abscess in the sigmoid colon as well as note of multiple subcentimeter liver lesions that are suspicious for abscesses in the setting of the patient having a history of liver abscess in January 2020. The patient reports feeling mild lower abdominal pressure which led to her outpatient testing. She denies any fevers, chills, cough, congestion, nausea/vomiting. She denies any urinary symptoms. ROS: See above HPI for pertinent positives & negatives. A total of 10 systems reviewed and were otherwise negative. VITALS:See Below PHYSICAL EXAMINATION: GENERAL: Awake, alert, well-appearing, in no distress HENT: Normocephalic, atraumatic. Oropharynx with dry mucous membranes and otherwise unremarkable. EYES: Normal conjunctiva. Sclera non-icteric. NECK: Supple. No nuchal rigidity. FROM. No JVD. RESPIRATORY: Clear to auscultation. CARDIAC: Regular rate, normal rhythm. Extremities warm and well perfused. Pulses equal. ABDOMEN: Soft, non-distended. Mild lower abdominal discomfort without discrete tenderness to palpation. No rebound or guarding. No masses. RECTAL: Deferred. MUSCULOSKELETAL: Chest examination reveals no tenderness. The back is symmetrical on inspection without obvious abnormality. There is no CVA tenderness to palpation. No joint edema. LOWER EXTREMITIES: Calves are equal size bilaterally and non-tender. No edema. No discoloration. NEURO: Normal sensorium. No sensory or motor deficits noted. SKIN: No rash or jaundice noted. Ayan Fuentes MD Past Med/Surg History Medical History (Updated 08/30/22 @ 01:41 by Ayan Fuentes MD) AA (alcohol abuse) Alcohol use Anxiety Depression Diverticulosis of colon Fatty liver GERD (gastroesophageal reflux disease) Hx of ectopic Hyperlipidemia Hypertension Hypokalemia Respiratory failure, acute Tobacco abuse Transaminitis Surgical History H/O wisdom tooth extraction H/O: History of oophorectomy, unilateral Hx of eye surgery Family History Other No significant family history Social History Smoking Status: Current every day smoker Tobacco Type: Cigarettes Cigarettes Per Day: 20; Second Hand Exposure: No; Hx Alcohol Use: Yes Alcohol type: wine Hx Substance Use: No Preferred Language: Iranian Communication Ability: Effective Business Process Representative Required: No Beliefs That Will Affect Care: None marital status: Single Current Living Situation: Alone Feels Safe at Home: Yes Assistive Devices: Glasses and Oxygen - Continuous Allergies Allergies Allergy/AdvReac Type Severity Reaction Status Date / Time No Known Allergies Allergy Verified 01/24/20 19:55 Home Meds Home Medications Medication Instructions Recorded Confirmed calcium carbonate 600 mg-vitamin 1 tab PO HS 04/02/18 01/24/20 D3 20 mcg (800 unit) tablet cholecalciferol (vitamin D3) 25 1,000 units PO Q2D 04/02/18 01/24/20 mcg (1,000 unit) capsule (Vitamin D3) lorazepam 1 mg tablet 0.5 mg PO TID PRN Anxiety 04/02/18 01/25/20 Rosacea Cream 1 applic topical DIRECTED 01/24/20 01/24/20 ROSACEA albuterol sulfate 90 mcg/actuation 2 puff inhalation DIRECTED PRN 01/24/20 01/24/20 aerosol inhaler Shortness Of Breath Or Wheezing magnesium 250 mg tablet 125 mg PO DAILY 01/24/20 01/24/20 famotidine 20 mg tablet 20 mg PO DAILY 08/30/22 08/30/22 fluticasone fur. 100 mcg-umeclid 1 inh inhalation DAILY 08/30/22 08/30/22 62.5 mcg-vilant 25 mcg inhalat.powder (Trelegy Ellipta) Previous Rx's Medication Instructions Recorded folic acid 1 mg tablet 1 mg PO DAILY #30 tabs 04/13/18 multivitamin 1 tab PO DAILY #30 tabs 04/13/18 thiamine HCl (vitamin B1) 100 mg 100 mg PO DAILY #30 tabs 04/13/18 tablet Results & Data (ED) Vital Signs Vital Signs - 24 hr 08/29/22 18:24 08/29/22 20:42 08/29/22 20:53 Temperature 37.2 C Temperature Source Temporal Artery Scan Pulse Rate 106 H 101 H Pulse Rate from SpO2 Sensor 92 H Respiratory Rate 20 24 Respiratory Effort / Characteristics Non-Labored Respiratory Depth Normal Blood Pressure 126/79 126/71 Blood Pressure Mean 94 89 Blood Pressure Position Sitting Pulse Oximetry 95 97 93 Oxygen Delivery Method Room Air Sepsis Recent Fever Within 48 Hours No Sepsis New/Unexplained Change in Mental Status N/A Sepsis Action Taken by Nursing No Action Required 08/29/22 20:53 08/29/22 21:00 08/29/22 21:10 Temperature Temperature Source Pulse Rate 102 H 103 H 99 H Pulse Rate from SpO2 Sensor 103 H 96 H Respiratory Rate 21 22 Respiratory Effort / Characteristics Respiratory Depth Blood Pressure Blood Pressure Mean Blood Pressure Position Pulse Oximetry 94 94 Oxygen Delivery Method Sepsis Recent Fever Within 48 Hours Sepsis New/Unexplained Change in Mental Status Sepsis Action Taken by Nursing 08/29/22 21:20 08/29/22 21:30 08/29/22 21:40 Temperature Temperature Source Pulse Rate 99 H 99 H 104 H Pulse Rate from SpO2 Sensor 89 94 H 102 H Respiratory Rate 21 21 18 Respiratory Effort / Characteristics Respiratory Depth Blood Pressure Blood Pressure Mean Blood Pressure Position Pulse Oximetry 92 92 94 Oxygen Delivery Method Sepsis Recent Fever Within 48 Hours Sepsis New/Unexplained Change in Mental Status Sepsis Action Taken by Nursing 08/29/22 22:25 08/29/22 22:30 08/29/22 22:40 Temperature Temperature Source Pulse Rate 100 H 99 H 96 H Pulse Rate from SpO2 Sensor 99 H 96 H Respiratory Rate 8 L 22 23 Respiratory Effort / Characteristics Respiratory Depth Blood Pressure 126/71 Blood Pressure Mean 89 Blood Pressure Position Pulse Oximetry 90 90 Oxygen Delivery Method Sepsis Recent Fever Within 48 Hours Sepsis New/Unexplained Change in Mental Status Sepsis Action Taken by Nursing 08/29/22 22:50 Temperature Temperature Source Pulse Rate 93 H Pulse Rate from SpO2 Sensor Respiratory Rate 23 Respiratory Effort / Characteristics Respiratory Depth Blood Pressure Blood Pressure Mean Blood Pressure Position Pulse Oximetry Oxygen Delivery Method Sepsis Recent Fever Within 48 Hours Sepsis New/Unexplained Change in Mental Status Sepsis Action Taken by Nursing Laboratory Data Attestation: I reviewed the patient's lab results. 08/29/22 19:32 08/29/22 19:32 Lab Results 08/29/22 08/29/22 08/29/22 Range/Units 19:32 19:32 19:38 WBC 6.20 (4.8-10.8) K/ul RBC 3.95 L (4.20-5.40) M/uL Hgb 14.2 (12.0-16.0) g/dl Hct 42.4 (37.0-47.0) % MCV 107.3 H (80.0-100.0) fL MCH 35.9 H (25.0-34.0) pg MCHC 33.5 (32.0-36.0) g/dL RDW Std Deviation 54.0 H (36.4-46.3) fL RDW Coeff of Vale 13.7 (11.5-14.5) % Plt Count 166 (130-400) K/uL MPV 11.0 (9.4-12.4) fL Immature Gran % (Auto) 0.2 % Neut % (Auto) 64.2 % Lymph % (Auto) 24.5 % [place] % (Auto) 9.0 % Eos % (Auto) 1.8 % Baso % (Auto) 0.3 % Neut # (Auto) 3.98 (1.40-6.50) K/uL Lymph # (Auto) 1.52 (1.2-3.4) K/uL [place] # (Auto) 0.56 (0.11-0.59) K/uL Eos # (Auto) 0.11 (0-0.50) K/uL Baso # (Auto) 0.02 (0-0.2) K/uL Immature Gran # (Auto) 0.01 (0.01-0.20) K/uL PT (9.0-12.0) Seconds INR (0.9-1.1) Sodium 138 (136-145) mmol/L Potassium 3.6 (3.5-5.1) mmol/L Chloride 103 (98-107) mmol/L Carbon Dioxide 30 (21-32) mmol/L Anion Gap 5 (3-11) BUN 9 (6-23) mg/dl Creatinine 0.73 (0.6-1.2) mg/dl Est Cr Clr Drug Dosing 70.5 ml/min Est GFR ( Amer) 97.4 ml/min Est GFR (Non-Af Amer) 84.0 ml/min BUN/Creatinine Ratio 12.3 (10-20) Glucose 97 (70-99(Fasting)) mg/dl Lactate (0.4-2.0) mmol/L Calcium 9.3 (8.5-10.1) mg/dl Total Bilirubin 0.9 (0.2-1.0) mg/dl AST 28 (13-39) U/L ALT 21 (7-52) U/L Alkaline Phosphatase 77 (34-104) U/L Total Protein 7.8 (6.0-8.3) gm/dl Albumin 4.3 (3.4-5.0) gm/dl Globulin 3.5 (2.5-4.0) gm/dl Albumin/Globulin Ratio 1.2 (0.9-2) Lipase 32 (11-82) U/L Procalcitonin (0-0.5) ng/ml Urine Color Urine Appearance (Clear) Urine pH (4.5-7.5) Ur Specific Shannon (1.000-1.030) Urine Protein (Negative) Urine Glucose (UA) (Negative) Urine Ketones (Negative) Urine Blood (Negative) Urine Nitrite (Negative) Urine Bilirubin (Negative) Urine Urobilinogen (Negative) Ur Leukocyte Esterase (Negative) Ethyl Alcohol mg/dL (<10.0) mg/dl SARS-CoV-2, RNA, NAAT NEGATIVE (NEGATIVE) 08/29/22 08/29/22 08/29/22 Range/Units 22:22 23:15 23:15 WBC (4.8-10.8) K/ul RBC (4.20-5.40) M/uL Hgb (12.0-16.0) g/dl Hct (37.0-47.0) % MCV (80.0-100.0) fL MCH (25.0-34.0) pg MCHC (32.0-36.0) g/dL RDW Std Deviation (36.4-46.3) fL RDW Coeff of Vale (11.5-14.5) % Plt Count (130-400) K/uL MPV (9.4-12.4) fL Immature Gran % (Auto) % Neut % (Auto) % Lymph % (Auto) % [place] % (Auto) % Eos % (Auto) % Baso % (Auto) % Neut # (Auto) (1.40-6.50) K/uL Lymph # (Auto) (1.2-3.4) K/uL [place] # (Auto) (0.11-0.59) K/uL Eos # (Auto) (0-0.50) K/uL Baso # (Auto) (0-0.2) K/uL Immature Gran # (Auto) (0.01-0.20) K/uL PT (9.0-12.0) Seconds INR (0.9-1.1) Sodium (136-145) mmol/L Potassium (3.5-5.1) mmol/L Chloride (98-107) mmol/L Carbon Dioxide (21-32) mmol/L Anion Gap (3-11) BUN (6-23) mg/dl Creatinine (0.6-1.2) mg/dl Est Cr Clr Drug Dosing ml/min Est GFR ( Amer) ml/min Est GFR (Non-Af Amer) ml/min BUN/Creatinine Ratio (10-20) Glucose (70-99(Fasting)) mg/dl Lactate 0.9 (0.4-2.0) mmol/L Calcium (8.5-10.1) mg/dl Total Bilirubin (0.2-1.0) mg/dl AST (13-39) U/L ALT (7-52) U/L Alkaline Phosphatase (34-104) U/L Total Protein (6.0-8.3) gm/dl Albumin (3.4-5.0) gm/dl Globulin (2.5-4.0) gm/dl Albumin/Globulin Ratio (0.9-2) Lipase (11-82) U/L Procalcitonin < 0.05 (0-0.5) ng/ml Urine Color Yellow Urine Appearance Clear (Clear) Urine pH 7.0 (4.5-7.5) Ur Specific [place] 1.018 (1.000-1.030) Urine Protein Negative (Negative) Urine Glucose (UA) Negative (Negative) Urine Ketones Negative (Negative) Urine Blood Negative (Negative) Urine Nitrite Negative (Negative) Urine Bilirubin Negative (Negative) Urine Urobilinogen Negative (Negative) Ur Leukocyte Esterase Negative (Negative) Ethyl Alcohol mg/dL (<10.0) mg/dl SARS-CoV-2, RNA, NAAT (NEGATIVE) 08/29/22 08/29/22 Range/Units 23:15 23:15 WBC (4.8-10.8) K/ul RBC (4.20-5.40) M/uL Hgb (12.0-16.0) g/dl Hct (37.0-47.0) % MCV (80.0-100.0) fL MCH (25.0-34.0) pg MCHC (32.0-36.0) g/dL RDW Std Deviation (36.4-46.3) fL RDW Coeff of [place] (11.5-14.5) % Plt Count (130-400) K/uL MPV (9.4-12.4) fL Immature Gran % (Auto) % Neut % (Auto) % Lymph % (Auto) % [place] % (Auto) % Eos % (Auto) % Baso % (Auto) % Neut # (Auto) (1.40-6.50) K/uL Lymph # (Auto) (1.2-3.4) K/uL [place] # (Auto) (0.11-0.59) K/uL Eos # (Auto) (0-0.50) K/uL Baso # (Auto) (0-0.2) K/uL Immature Gran # (Auto) (0.01-0.20) K/uL PT 10.6 (9.0-12.0) Seconds INR 1.0 (0.9-1.1) Sodium (136-145) mmol/L Potassium (3.5-5.1) mmol/L Chloride (98-107) mmol/L Carbon Dioxide (21-32) mmol/L Anion Gap (3-11) BUN (6-23) mg/dl Creatinine (0.6-1.2) mg/dl Est Cr Clr Drug Dosing ml/min Est GFR ( Amer) ml/min Est GFR (Non-Af Amer) ml/min BUN/Creatinine Ratio (10-20) Glucose (70-99(Fasting)) mg/dl Lactate (0.4-2.0) mmol/L Calcium (8.5-10.1) mg/dl Total Bilirubin (0.2-1.0) mg/dl AST (13-39) U/L ALT (7-52) U/L Alkaline Phosphatase (34-104) U/L Total Protein (6.0-8.3) gm/dl Albumin (3.4-5.0) gm/dl Globulin (2.5-4.0) gm/dl Albumin/Globulin Ratio (0.9-2) Lipase (11-82) U/L Procalcitonin (0-0.5) ng/ml Urine Color Urine Appearance (Clear) Urine pH (4.5-7.5) Ur Specific [place] (1.000-1.030) Urine Protein (Negative) Urine Glucose (UA) (Negative) Urine Ketones (Negative) Urine Blood (Negative) Urine Nitrite (Negative) Urine Bilirubin (Negative) Urine Urobilinogen (Negative) Ur Leukocyte Esterase (Negative) Ethyl Alcohol mg/dL < 10.0 (<10.0) mg/dl SARS-CoV-2, RNA, NAAT (NEGATIVE) Administered Medications Daptomycin 375 mg/ Syringe 7.5 mls @ 3.75 mls/min IV Q24H [facility]; Protocol Stop: 08/31/22 22:44 Last Admin: 08/29/22 23:26 Dose: 3.75 mls/min Documented By: RSSintia Discontinued Medications Sodium Chloride (Nss 1000ml) 1,000 mls @ 999 mls/hr IV .Q1H1M STA Stop: 08/29/22 19:28 Last Infusion: 08/29/22 22:28 Dose: 0 mls/hr Documented By: Admin: 08/29/22 20:51 Dose: 999 mls/hr Documented By: RSL Piperacillin Sod/Tazobactam Sod (Zosyn) 4.5 gm in 120 mls @ 240 mls/hr IV NOW ONE Stop: 08/29/22 18:57 Last Infusion: 08/29/22 21:20 Dose: 0 mls/hr Documented By: Admin: 08/29/22 20:51 Dose: 240 mls/hr Documented By: RSL Multivitamins 10 ml/ Thiamine HCl 100 mg/ Folic Acid 1 mg/Sodium Chloride 1,011.2 mls @ 1,011.2 mls/hr IV .Q1H ONE Stop: 08/29/22 23:33 Last Infusion: 08/30/22 00:31 Dose: 0 mls/hr Documented By: Admin: 08/29/22 23:26 Dose: 1,011.2 mls/hr Documented By: LISA Piperacillin Sod/Tazobactam Sod (Zosyn) 4.5 gm in 120 mls @ 240 mls/hr IV NOW ONE Stop: 08/29/22 23:03 Last Admin: 08/29/22 22:51 Dose: Not Given Documented By: LISA Discharge Plan Visit Data Chief Complaint: Abnormal Labs/Diagnostic Testing Stated Complaint: REF BY PEDRO MALIN ON LIVER,ABNORMAL LAB ED Provider: Ayan Fuentes Discharge Problem: Diverticulitis of large intestine with abscess, Lesion of liver, Alcohol dependence Patient Disposition: Admitted As Inpatient Forms Stand Alone Forms: [facility] Prescriptions Prescriptions: No Action lorazepam 1 mg Tablet 0.5 mg PO TID PRN (Reason: Anxiety) cholecalciferol (vitamin D3) [Vitamin D3] 1,000 unit Capsule 1,000 units PO Q2D calcium carbonate-vitamin D3 600 mg(1,500mg) -800 unit Tablet 1 tab PO HS multivitamin tablet 1 tab PO DAILY Qty: 30 0RF thiamine HCl (vitamin B1) 100 mg tablet 100 mg PO DAILY Qty: 30 0RF folic acid 1 mg tablet 1 mg PO DAILY Qty: 30 5RF magnesium 250 mg Tablet 125 mg PO DAILY albuterol sulfate 90 mcg/actuation Hfa Aerosol Inhaler 2 puff INHALATION DIRECTED PRN (Reason: Shortness Of Breath Or Wheezing) Rosacea Cream 1 applic topical DIRECTED famotidine 20 mg tablet 20 mg PO DAILY Trelegy Ellipta 100-62.5-25 mcg blister with device 1 inh INHALATION DAILY Referrals Referrals: Ct Morales DO [Primary Care Provider] -
[2022-08-30] MEDS ORDERED: ACETAMINOPHEN 325 MG TAB PO PRN (02:37)
[2022-08-30] MEDS ORDERED: ALBUTEROL HFA 8 GM INHALER INH PRN (02:37)
[2022-08-30] MEDS ORDERED: POLYETHYLENE (MIRALAX) 17 GM PACK PO PRN (02:37)
[2022-08-30] MEDS ORDERED: LORazepam 2 MG/1 ML VIAL IV PRN ×3 (02:37)
[2022-08-30] MEDS ORDERED: GABAPENTIN 600 MG TAB PO ONE (02:37)
[2022-08-30] MEDS ORDERED: GABAPENTIN 1200MG ALCOHOL WITHDRAWAL LOAD PO STA (02:37)
[2022-08-30] MEDS ORDERED: Ativan IV Alcohol Withdrawal--Active Protocol IV PRN (02:37)
[2022-08-30] MEDS ORDERED: NITROGLYCERIN SL 0.4 MG/TAB TAB SL PRN (02:37)
[2022-08-30] MEDS ORDERED: MoRPHine SULFATE 2 MG/ML CARP IV PRN (02:37)
[2022-08-30] MEDS ORDERED: MULTI-VITAMIN INFUSION 10 ML, THIAMINE HCL 100 MG, FOLIC ACID 1 MG in SODIUM CHLORIDE 0... IV ONE (03:00)
--- NOTE | 2022-08-30 03:03 | History and Physical Report ---
DATE OF ADMISSION: 08/29/2022. CHIEF COMPLAINT: Abdominal pain, diverticulitis. HISTORY OF PRESENT ILLNESS: A 67-year-old female with past medical history significant for hyperlipidemia, hypokalemia, hypomagnesemia, prediabetes, COPD, ongoing tobacco abuse, smokes 1 pack a day, history of lung nodules and restrictive lung disease, hypertension, alcoholic cirrhosis of liver, GERD, depression, generalized anxiety disorder, ongoing alcohol abuse, drinks 2-3 shots of vodka daily. Presents with abdominal pain going on for the last couple of weeks and constipation. Went to see family doctor yesterday and CAT scan was done as outpatient which is showing acute sigmoid diverticulitis, 2.6 cm marginal intramural abscess, no fistula, secondary inflammatory change within the uterus, adnexa, and bladder, a couple of new hepatic hypoattenuating lesions, most consistent with abscess, recommend MRI of the liver for confirmation, and a 4.5 cm left adnexal cyst. The patient was brought to the hospital, received antibiotics. The patient had a similar episode in January of 2020. At that time, also she was admitted for mild diverticulitis and MRI of the liver was performed at that time and was showing a 5 cm abscess, and she was transferred to [place]. Abscess was drained and cultures were sterile, and as she declined PICC line, she was discharged on Cipro and Flagyl for 3 weeks and followed with ID. As the CAT scan was still showing some residual abscess, she was prescribed another 2 weeks of Cipro and Flagyl and subsequent ultrasound showed clearance of the abscess .She also followed with [facility] because of the left ovarian complex cyst. There was a question of cystic ovarian neoplasm and advised for followup, which the patient did not follow up. The patient denies any fevers. Currently, the patient is resting comfortably, hemodynamically stable. She says for the last 2 days, the pain is better. Denies any headache. No blurred visions, no earache, no runny nose, no sore throat. She has chronic cough from her smoking and on and off shortness of breath from her COPD. Denies any chest pain. Currently, no nausea, somewhat constipated, no blood in the stools. Normal bladder movements. No swelling in the legs. ALLERGIES: No known drug allergies. PAST MEDICAL HISTORY: As mentioned above. PAST SURGICAL HISTORY: Right breast biopsy, , colonoscopy, conization of cervix, dental surgery, EGD, EGD with endoscopic ultrasound, injection of lumbosacral spine, removal of partial vulva, ectopic . MEDICATIONS: The patient is on albuterol 2 puffs inhalation q. 4 hours p.r.n., calcium carbonate 1 tablet p.o. at bedtime, famotidine 20 mg p.o. daily, Trelegy Ellipta one inhalation daily, folic acid 1 mg p.o. daily, lorazepam 0.5 mg p.o. t.i.d. p.r.n., magnesium 125 mg p.o. daily, multivitamin 1 tablet p.o. daily, thiamine 100 mg p.o. daily. FAMILY HISTORY: Significant for brother had skin cancer; father had prostate cancer; hypertension; mother had throat cancer. SOCIAL HISTORY: Still smokes 1 pack a day for last 45 years. Alcohol, 2-3 shots of vodka daily. No drug use. REVIEW OF SYSTEMS: As per HPI. Rest of review of systems is negative. PHYSICAL EXAMINATION: GENERAL: The patient is of moderate built, not in acute distress. VITAL SIGNS: Temperature 37.2, pulse 93, respiratory 23, blood pressure 126/71, oxygen 90% on room air. HEENT: Pupils equal, round and reactive to light. Oral mucosa moist. NECK: No JVD, no neck masses. CARDIOVASCULAR: S1 and S2 heard. Regular rate and rhythm. No murmur, no gallop. RESPIRATORY SYSTEM: Normal AP diameter. No accessory muscle use. No wheezing or crackles. ABDOMEN: Soft, bowel sounds present. Mild discomfort, no guarding, no rigidity, no distention. CENTRAL NERVOUS SYSTEM: Cranial nerves II-XII grossly intact, nonfocal. EXTREMITIES: No edema, no erythema. LABORATORY DATA: WBC 6.2, hemoglobin 14.2, hematocrit 42.4, platelets 166. PT 10.6, INR 1. Sodium 138, potassium 3.6, chloride 103, bicarbonate 30, BUN 9, creatinine 0.7, serum glucose 97, lactate 0.9, calcium 9.3, total bilirubin 0.9, AST 28, ALT 21, alkaline phosphatase 71, lipase 32. Urinalysis negative. Ethyl alcohol less than 10. SARS-CoV-2 rapid test negative. ASSESSMENT AND PLAN: This is a 67-year-old female who presents with abdominal pain going on for the last 2 weeks and constipation. Outpatient CAT scan done was showing sigmoid diverticulitis and hepatic abscess. 1. Sigmoid diverticulitis with 2.6 cm marginal intramural abscess or fistula, a couple of new hepatic hypoattenuating lesions most consistent with abscesses. Looks like hepatic abscesses,are subcentimeter, treated with IV antibiotics, Zosyn and daptomycin. Follow the cultures. Surgical consult. Will keep her n.p.o., IV fluids. Monitor in the hospital.Can consider MRI of the liver to check for abscess size. 2. left adnexal cyst 4.5 to 5 cm. Supposed to follow with [facility], did not follow. Will consult with [facility] while the patient is in the hospital. 3. Tobacco abuse: Needs counseling. Continue her home inhalers. 4. History of ongoing alcoholism: Drinks 2-3 shots of vodka daily. Placed her on banana bag, on gabapentin protocol with IV Ativan p.r.n., IV thiamine, IV folic acid daily. Closely monitor for withdrawal. 5. Deep venous thrombosis prophylaxis: Sequential compression devices for now. DISPOSITION: Closely monitor in the [place] tele. PT/OT prior to discharge. Social service to help with discharge planning. Job ID: [id number] [facility]
--- NOTE | 2022-08-30 05:28 | Surgery Progress Note ---
Date of Service August 30, 2022 Assessment & Plan (1) Liver abscess: (2) Diverticulitis: Plan: Patient has been admitted on the hospitalist service. Continue care as follows: Continue analgesics Continue antiemetics Continue hydration measures with IV fluids which should continue until oral intake is adequate Continue n.p.o. status. If patient's laboratories and her clinical status continue to improve consideration will be given to advancing diet beginning with clear liquids. Continue antibiotics in the form of daptomycin and Zosyn Continue clinical monitoring of liver lesions noted on CAT scan which may be small hepatic abscesses Check a.m. labs and available Admission and Anticipated Discharge Date Admission Date: August 30, 2022 Supervising Physician Co-Signing Physician Notes Patient states in 2019 the patient had liver abscesses drained at [place] We will need to define more the etiology of the liver lesions once we obtain the actual CT scans from [facility] we will be able to compare them with the previous ones of 2019 Subjective Patient is resting comfortably in bed. She notes her abdominal pain is minimal at this point in time. She says she has been passing a small amount of flatus since surgery but no bowel movement. She denies any nausea or vomiting. Physical Exam Gastrointestinal (Abdomen): Abdomen is minimally distended with hypoactive bowel sounds. There is no rebound tenderness or guarding and minimal pain with palpation particularly in the left lower quadrant Results & Data ([facility]) Vital Signs (Past 12 Hours) Vital Signs Temp Pulse Pulse Resp BP BP Pulse Ox 08/30/22 02:05 105 H 08/30/22 04:11 08/30/22 03:16 16 08/30/22 02:37 36.9 C 98 H 22 125/74 91 08/30/22 02:37 08/30/22 02:03 36.9 C 98 H 16 125/74 90 08/30/22 00:50 93 H 08/30/22 01:00 94 H 21 93 08/30/22 01:40 93 H 27 H 08/30/22 01:30 94 H 25 H 126/71 08/30/22 01:20 93 H 20 08/30/22 01:10 92 H 25 H 08/30/22 01:00 92 H 20 08/30/22 00:50 92 H 21 08/30/22 00:40 91 H 22 08/30/22 00:30 94 H 17 08/30/22 00:24 98 H 18 08/30/22 00:10 91 H 20 90 08/30/22 00:01 90 20 93 08/29/22 23:50 88 24 94 08/29/22 23:40 90 19 93 08/29/22 23:30 88 15 92 08/29/22 23:20 93 H 21 89 L 08/29/22 23:10 91 H 22 91 08/29/22 23:00 92 H 20 90 08/29/22 22:50 93 H 23 08/29/22 22:40 96 H 23 90 08/29/22 22:30 99 H 22 126/71 90 08/29/22 22:25 100 H 8 L 08/29/22 21:40 104 H 18 94 08/29/22 21:30 99 H 21 92 08/29/22 21:20 99 H 21 92 08/29/22 21:10 99 H 22 94 08/29/22 21:00 103 H 21 94 08/29/22 20:53 102 H 08/29/22 20:53 101 H 24 126/71 93 08/29/22 20:42 97 08/29/22 18:24 37.2 C 106 H 20 126/79 95 Pulse Ox O2 Del Method O2 Del Method 08/30/22 02:05 08/30/22 04:11 Room Air 08/30/22 03:16 08/30/22 02:37 Room Air 08/30/22 02:37 96 Room Air 08/30/22 02:03 Room Air 08/30/22 00:50 08/30/22 01:00 Room Air 08/30/22 01:40 08/30/22 01:30 08/30/22 01:20 08/30/22 01:10 08/30/22 01:00 08/30/22 00:50 08/30/22 00:40 08/30/22 00:30 08/30/22 00:24 08/30/22 00:10 08/30/22 00:01 08/29/22 23:50 08/29/22 23:40 08/29/22 23:30 08/29/22 23:20 08/29/22 23:10 08/29/22 23:00 08/29/22 22:50 08/29/22 22:40 08/29/22 22:30 08/29/22 22:25 08/29/22 21:40 08/29/22 21:30 08/29/22 21:20 08/29/22 21:10 08/29/22 21:00 08/29/22 20:53 08/29/22 20:53 08/29/22 20:42 08/29/22 18:24 Room Air PG Care Time/CCT Total # of Minutes Spent Total Time Spent with Patient: Total time spent is greater than 50% in coordination of care (as documented) at patient's floor/unit and/or counseling patient: Coding Level of Care Code 88764 SUB INP/OBS CARE 08/06MIN Diagnoses Liver abscess K75.0 Diverticulitis K57.92
[2022-08-30] MEDS: PIPERACILLIN/TAZOBACTAM 3.375 GM in DEXTROSE 5% 100 ML IV SCH ×3 (05:44→19:56)
[2022-08-30 06:28] LABS: Basophils # (auto) 0.01 K/uL (0-0.2); Basophils % (auto) 0.2 %; Eosinophils # (auto) 0.12 K/uL (0-0.50); Eosinophils % (auto) 2.8 %; Hematocrit (blood only) 34.6 % (37.0-47.0); Hemoglobin 11.4 g/dl (12.0-16.0); Immature Granulocytes # (auto) 0.03 K/uL (0.01-0.20); Immature Granulocytes % (auto) 0.7 %; Lymphocytes # (auto) 1.24 K/uL (1.2-3.4); Lymphocytes % (auto) 28.7 %; Mean Corpuscular Hemoglobin 36.1 pg (25.0-34.0); Mean Corpuscular Hgb Conc 32.9 g/dL (32.0-36.0); Mean Corpuscular Volume 109.5 fL (80.0-100.0); Mean Platelet Volume 11.1 fL (9.4-12.4); Monocytes # (auto) 0.43 K/uL (0.11-0.59); Neutrophils # (auto) 2.49 K/uL (1.40-6.50); Neutrophils % (auto) 57.6 %; Platelet Count 145 K/uL (130-400); RDW Coefficient of Variation 13.9 % (11.5-14.5); RDW Standard Deviation 55.4 fL (36.4-46.3); Red Blood Count 3.16 M/uL (4.20-5.40); White Blood Count 4.32 K/ul (4.8-10.8)
[2022-08-30 08:24] LABS: Estimated Average Glucose 126 mg/dl
[2022-08-30] MEDS ORDERED: FLUTICASONE FUROATE 100MCG 14 PUFFS/INHALER INH SCH (09:00)
[2022-08-30] MEDS ORDERED: UMECLIDINIUM/VILANTEROL 62.5/25MCG 7 PUFFS/INHALER INH SCH (09:00)
[2022-08-30] MEDS ORDERED: NON-FORMULARY MEDICATION (Fluticasone-Umeclidin-Vilanter [Trelegy Ellipta] 100-62.5-25 mcg INH SCH (09:00)
[2022-08-30] MEDS: MAGNESIUM SULFATE / D5W 1 GM/100 ML BAG IV SCH ×2 (09:26→11:19)
[2022-08-30] MEDS: D5W AND 1/2NSS 1,000 ML IV SCH ×2 (09:27→19:58)
[2022-08-30] MEDS: FAMOTIDINE 20 MG TAB PO SCH (09:30)
[2022-08-30] MEDS: MULTIVITAMIN TAB PO SCH (09:30)
[2022-08-30] MEDS: GABAPENTIN 600 MG TAB PO SCH ×2 (09:36→15:42)
[2022-08-30] MEDS: FLUTICASONE/UMECLIDIN/VILANTER 100-62.5-25 INH SCH (11:47)
[2022-08-30] MEDS: LORazepam 0.5 MG TAB PO PRN (11:47)
--- NOTE | 2022-08-30 13:57 | Hospitalist Progress Note ---
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 She received a CAT scan as an outpatient which showed acute sigmoid diverticulitis with 2.6 cm marginal intramural abscess and concern for hepatic abscess and hence was sent to the ED for further evaluation and treatment. 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 Patient with no complaint of upper abdominal pain or RUQ pain at admission. Patient does have history of hepatic abscess in 2019 which was drained at [place] and was treated with oral long-term antibiotic. Patient declined PICC line at that time. 08/[address] scan abdomen pelvis with acute sigmoid diverticulitis with a 2.6 cm marginal intramural abscess. No fistula. Hepatic hypoattenuating lesions consistent with abscess and 4.5 cm left adnexal cyst. Discussed with radiology on-call, for hepatic lesions can repeat imaging in the form of ultrasound liver in few days. Patient started on Zosyn and daptomycin 08/30, will continue with same for now. Follow-up admitting blood culture. Clear liq diet as pt reports significant improvement in lower belly pain. Surgery evaluated, conservative management, clear liquid diet if improving clinical condition. ID consult, await recs. c/w ivf for now. Left adnexal cyst: See CT scan abdomen pelvis above, patient to follow-up with INTER COM INSTALLER as an outpatient but did not follow. Discussed with INTER COM INSTALLER, plan to follow her up as an outpatient. Patient aware. Alcohol abuse: Drinks 2-3 large glasses of vodka cocktails every night, has withdrawal in the past when admitted in the hospital but has not had any seizure history per patient. We will continue with AWSS protocol. Monitor and replete electrolytes. Tobacco abuse: Smokes 1 packs a day. Counseled about cessation of smoking and drinking, patient stated she will think about it but also states that she will not be able to leave it because she enjoys them. Other chronic medical conditions: GERD, HLD, RLD, COPD, LIZ -- Resume home meds as able. DVT prophylaxis: SCDs Disposition: Pending ID parviz. PT/OT, CM to assist with DC planning. Admission and Anticipated Discharge Date Admission Date: August 30, 2022 Subjective Patient seen and examined at bedside as a follow-up of sigmoid diverticulitis with intramural abscess, concern for hepatic abscess and chronic left adnexal cyst. Patient was lying in bed, on room air, NAD, reports no new acute event overnight, patient reports improving lower belly pain, denies any fever in the last 1 week, reports feeling better, denies any new cough or chest pain or or headache or upper belly pain. Reports not being able to move bowel as usual. Physical Exam Physical Exam: GENERAL: Alert and oriented x3. NAD, on RA. HEENT: No pallor, no icterus. Pupils equal, round and reactive to light. Oral mucosa moist. NECK: No JVD, no neck masses. HEART: S1 and S2 heard. Regular rate and rhythm. No murmur, no gallop. RESPIRATORY SYSTEM: Normal AP diameter. No accessory muscle use. No wheezing, no crackles. ABDOMEN: Soft, bowel sounds present, nontender, no distention. CENTRAL NERVOUS SYSTEM: No facial droop. Speech is clear. Obeys simple commands. Moves extremities. EXTREMITIES: No edema, no erythema seen. Results & Data Results & Data ([facility]) Vital Signs (Past 12 Hours) Vital Signs Temp Pulse Pulse Resp BP Pulse Ox Pulse Ox 08/30/22 09:04 36.8 C 82 16 116/69 93 08/30/22 08:00 90 08/30/22 02:05 105 H 08/30/22 04:11 08/30/22 03:16 16 08/30/22 02:37 36.9 C 98 H 22 125/74 91 08/30/22 02:37 96 08/30/22 02:03 36.9 C 98 H 16 125/74 90 08/30/22 01:40 93 H 27 H O2 Del Method O2 Del Method 08/30/22 09:04 Room Air 08/30/22 08:00 02/18/23 02:05 08/30/22 04:11 Room Air 08/30/22 03:16 08/30/22 02:37 Room Air 08/30/22 02:37 Room Air 08/30/22 02:03 Room Air 08/30/22 01:40 (1) Diverticulitis of large intestine with abscess Diverticulitis bleeding: without bleeding Qualified Code(s): K57.20 - Diverticulitis of large intestine with perforation and abscess without bleeding
--- NOTE | 2022-08-30 19:54 | Consultation Report ---
DATE OF CONSULTATION: 08/30/2022. GEOSPATIAL PROGRAM MANAGEMENT OFFICER consult placed by Dr. Abraham. This as stated above is GEOSPATIAL PROGRAM MANAGEMENT OFFICER consult for left ovarian cyst. HISTORY OF PRESENT ILLNESS: The patient is a 67-year-old who was admitted on 08/30/2022 with complai nts of abdominal pain. She was worked up through medicine and was admitted for diverticulitis. The patient had a CT scan done through [place], the [facility] system and on the CT scan, she was noted t o have a 5 cm left ovarian cyst. The patient was initially scheduled to see GEOSPATIAL PROGRAM MANAGEMENT OFFICER from [facility], Aubrey acosta, after her discharge, but never followed up. That finding on ultrasound showed up again when sh e was being worked up through the admission process on this admission. I have seen the patient toisai east in the bedside. She has no abdominal pain today, she reports that pain is much improved since she has been admitted. Of note is that she has other medical problems including COPD, history of tobacco and alcohol use, restrictive lung disease and hypertension. PAST MEDICAL PROBLEMS: As stated above. PAST SURGICAL PROBLEMS: History of a right breast cancer, section, colonoscopy, cervical co ne, dental surgery, EGDs and lumbosacral spine injections. The patient also has had a history of ect opic in the past. MEDICATIONS: She is on several medications including albuterol, calcium carbonate, famotidine, Ellip ta, lorazepam, magnesium, and multivitamins. FAMILY HISTORY: Noncontributory. SOCIAL HISTORY: The patient is a smoker. Drinks about 2-3 shots of vodka a day. REVIEW OF SYSTEMS: As dictated in the HPI. PHYSICAL EXAMINATION: GENERAL: A 67-year-old white female, resting comfortably in bed. VITAL SIGNS: Temperature 37.2, pulse 93, blood pressure 123/71. O2 in sat room air is 90%. PELVIC: Exam is deferred. LABORATORY DATA: Labs are reviewed. ASSESSMENT AND PLAN: A 67-year-old admitted for abdominal pain and being worked up for diverticuliti s. The patient had a prior CT scan done through the [facility] system when she was in [place] that s howed a 4-[address] scan has been reviewed. The patient was seen at bedside with Dr. Trena dsouza, the hospitalist bridge contractor. I have discussed the findings of the CT scan with the patient. The emery esposito is known to me through the office. The plan is for her to follow up with the office upon disch arge. Her finding on CT scan would not affect her present condition or workup for diverticulitis. O nce the patient is seen in the office, we will follow her up with ultrasound and do further workup an d discuss if surgery is warranted. At this point, I do not think that the ovarian cyst needs to be cochran rgically removed, at least not this weekend or today. As stated above, we will follow her up in the office and this has been discussed with Dr. Lucia and we have agreed with the treatment and managemen t of this patient. Job ID: [id number]
[2022-08-30] MEDS: CALCIUM 600MG + VIT D 400 IU TAB PO SCH (19:56)
[2022-08-30] MEDS: DAPTOmycin 375 MG in SYRINGE 0 ML IV SCH (19:56)
[2022-08-31] MEDS: GABAPENTIN 600 MG TAB PO SCH ×3 (00:16→12:36)
[2022-08-31] MEDS: PIPERACILLIN/TAZOBACTAM 3.375 GM in DEXTROSE 5% 100 ML IV SCH ×3 (04:33→19:59)
[2022-08-31] MEDS: LORazepam 0.5 MG TAB PO PRN ×2 (04:37→19:00)
--- NOTE | 2022-08-31 05:44 | Surgery Progress Note ---
Date of Service August 31, 2022 Assessment & Plan (1) Liver abscess: (2) Diverticulitis: Plan: Patient has been admitted on the hospitalist service. Continue care as follows: Continue analgesics Continue antiemetics Patient had diet advanced to clear liquids yesterday. Would continue this for now without further advancement due to the patient's noted abdominal pain. Consideration can be given to advancing her diet further if her pain improves Continue antibiotics in the form of daptomycin and Zosyn Continue clinical monitoring of liver lesions noted on CAT scan which may be small hepatic abscesses. Check a.m. labs and available Admission and Anticipated Discharge Date Admission Date: August 30, 2022 Supervising Physician Co-Signing Physician Notes As per Chris Saenz physician therapeutic recreation assistant Patient does not report any major issues still has some minimal left lower quadrant discomfort tolerating a clear diet Lab noted Continue with antibiotic increase diet we will review the CT scans with the radiologist to render an opinion regarding the CAT scan showing lesions whether these are residual from previous abscesses or new Recommend that the patient be seen at a tertiary center specifically colorectal surgery to consider elective resection of sigmoid colon I feel given the patient's overall medical condition that this may be addressed at a tertiary center rather than have surgery at this hospital Subjective Patient is resting comfortably in bed. She notes that she had a bowel movement since admission. She has no nausea or vomiting. She does note some slight worsening of the pain in her lower abdomen. She denies any fevers, shakes, or chills. Physical Exam Gastrointestinal (Abdomen): Abdomen is minimally distended. There is no rebound tenderness or guarding. The patient did have some slight pain with palpation in her lower abdomen with deep palpation. Results & Data ([facility]) Vital Signs (Past 12 Hours) Vital Signs Temp Pulse Pulse Resp BP BP Pulse Ox 08/30/22 22:01 80 08/31/22 03:23 37.0 C 71 16 98/63 L 94 08/30/22 20:30 08/30/22 23:13 37.0 C 76 16 120/72 94 08/30/22 19:05 37.1 C 79 16 126/76 92 O2 Del Method 08/30/22 22:01 08/31/22 03:23 Room Air 08/30/22 20:30 Room Air 08/30/22 23:13 Room Air 08/30/22 19:05 Room Air PG Care Time/CCT Total # of Minutes Spent Total Time Spent with Patient: Total time spent is greater than 50% in coordination of care (as documented) at patient's floor/unit and/or counseling patient: Coding Level of Care Code 25542 SUB INP/OBS CARE 08/06MIN Diagnoses Liver abscess K75.0 Diverticulitis K57.92
[2022-08-31 06:24] LABS: BUN Creatinine Ratio 5.7 (10-20); Calcium 7.8 mg/dl (8.5-10.1); Est GFR (African American) 102.5 ml/min; Est GFR (Non-African American) 88.4 ml/min; Hematocrit (blood only) 35.6 % (37.0-47.0); Hemoglobin 11.8 g/dl (12.0-16.0); Mean Corpuscular Hemoglobin 36.2 pg (25.0-34.0); Mean Corpuscular Hgb Conc 33.1 g/dL (32.0-36.0); Mean Corpuscular Volume 109.2 fL (80.0-100.0); Mean Platelet Volume 11.1 fL (9.4-12.4); Phosphorus 1.8 mg/dl (2.5-4.9); Platelet Count 156 K/uL (130-400); Potassium 3.5 mmol/L (3.5-5.1); RDW Coefficient of Variation 13.9 % (11.5-14.5); RDW Standard Deviation 55.5 fL (36.4-46.3); Red Blood Count 3.26 M/uL (4.20-5.40); White Blood Count 4.85 K/ul (4.8-10.8)
[2022-08-31] MEDS: D5W AND 1/2NSS 1,000 ML IV SCH (09:07)
[2022-08-31] MEDS: MULTIVITAMIN TAB PO SCH (09:08)
[2022-08-31] MEDS: FLUTICASONE/UMECLIDIN/VILANTER 100-62.5-25 INH SCH (09:08)
[2022-08-31] MEDS: FAMOTIDINE 20 MG TAB PO SCH (09:08)
[2022-08-31] MEDS: FOLIC ACID 1 MG in SYRINGE 9.8 ML IV SCH (09:10)
[2022-08-31] MEDS ORDERED: POTASSIUM PHOS 3 MMOL/1 ML INFUSION IV STA (09:41)
[2022-08-31] MEDS ORDERED: POTASSIUM PHOSPHATE 15 MMOL in SODIUM CHLORIDE 0.9% 250 ML IV ONE (10:00)
[2022-08-31] MEDS: THIAMINE HCL 100 MG in SYRINGE 9 ML IV SCH (10:44)
--- NOTE | 2022-08-31 16:56 | Hospitalist Progress Note ---
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 She received a CAT scan as an outpatient which showed acute sigmoid diverticulitis with 2.6 cm marginal intramural abscess and concern for hepatic abscess and hence was sent to the ED for further evaluation and treatment. 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 Patient with no complaint of upper abdominal pain or RUQ pain at admission. Patient does have history of hepatic abscess in 2019 which was drained at [place] and was treated with oral long-term antibiotic. Patient declined PICC line at that time. 08/[address] scan abdomen pelvis with acute sigmoid diverticulitis with a 2.6 cm marginal intramural abscess. No fistula. Hepatic hypoattenuating lesions consistent with abscess and 4.5 cm left adnexal cyst. Discussed with radiology on-call 08/30, for hepatic lesions can repeat imaging in the form of ultrasound liver in few days. Patient started on Zosyn and daptomycin 08/30, will continue with same for now. Follow-up admitting blood culture. Surgery evaluated, conservative management, full liquid diet. ID consult, await recs. Left adnexal cyst: See CT scan abdomen pelvis above, patient to follow-up with [employer] as an outpatient but did not follow. Discussed with [employer] 08/30, plan to follow her up as an outpatient. Patient aware. Alcohol abuse: Drinks 2-3 large glasses of vodka cocktails every night, has withdrawal in the past when admitted in the hospital but has not had any seizure history per patient. We will continue with AWSS protocol. Monitor and replete electrolytes. Tobacco abuse: Smokes 1 packs a day. Counseled about cessation of smoking and drinking, patient stated she will think about it but also states that she will not be able to leave it because she enjoys them. Other chronic medical conditions: GERD, HLD, RLD, COPD, LIZ -- Resume home meds as able. DVT prophylaxis: SCDs Disposition: Pending ID parviz. PT/OT, CM to assist with DC planning. Admission and Anticipated Discharge Date Admission Date: August 30, 2022 Subjective Patient seen and examined at bedside as a follow-up of sigmoid diverticulitis with intramural abscess, concern for hepatic abscess and chronic left adnexal cyst. Patient was lying in bed, on room air, NAD, reports no new acute event overnight, patient reports recurrence of BP in AM, but better at bedside exam, denies any fever , reports feeling better, denies any new cough or chest pain or or headache or upper belly pain. Reports small bm. Physical Exam Physical Exam: GENERAL: Alert and oriented x3. NAD, on RA. HEENT: No pallor, no icterus. Pupils equal, round and reactive to light. Oral mucosa moist. NECK: No JVD, no neck masses. HEART: S1 and S2 heard. Regular rate and rhythm. No murmur, no gallop. RESPIRATORY SYSTEM: Normal AP diameter. No accessory muscle use. No wheezing, no crackles. ABDOMEN: Soft, bowel sounds present, nontender, no distention. CENTRAL NERVOUS SYSTEM: No facial droop. Speech is clear. Obeys simple commands. Moves extremities. EXTREMITIES: No edema, no erythema seen. Results & Data Results & Data ([facility]) Vital Signs (Past 12 Hours) Vital Signs Temp Pulse Pulse Resp BP Pulse Ox O2 Del Method 08/31/22 16:37 36.9 C 84 18 123/73 94 Room Air 08/31/22 07:08 36.9 C 93 H 18 93/58 L 97 Room Air 08/31/22 07:49 94 H (1) Diverticulitis of large intestine with abscess Diverticulitis bleeding: without bleeding Qualified Code(s): K57.20 - Diverticulitis of large intestine with perforation and abscess without bleeding
[2022-08-31] MEDS: CALCIUM 600MG + VIT D 400 IU TAB PO SCH (19:59)
[2022-08-31] MEDS: DAPTOmycin 375 MG in SYRINGE 0 ML IV SCH (23:28)
[2022-09-01] MEDS: PIPERACILLIN/TAZOBACTAM 3.375 GM in DEXTROSE 5% 100 ML IV SCH ×3 (05:17→20:52)
[2022-09-01] MEDS: GABAPENTIN 600 MG TAB PO SCH ×2 (06:06→17:23)
[2022-09-01 06:42] LABS: Hematocrit (blood only) 36.3 % (37.0-47.0); Mean Corpuscular Hemoglobin 36.3 pg (25.0-34.0); Mean Corpuscular Hgb Conc 33.1 g/dL (32.0-36.0); Mean Corpuscular Volume 109.7 fL (80.0-100.0); Platelet Count 150 K/uL (130-400); RDW Coefficient of Variation 14.1 % (11.5-14.5); RDW Standard Deviation 57.1 fL (36.4-46.3); Red Blood Count 3.31 M/uL (4.20-5.40); White Blood Count 4.05 K/ul (4.8-10.8)
[2022-09-01 06:49] LABS: Calcium 7.9 mg/dl (8.5-10.1); Creatinine Clr Calc Pharmacy 73.1 ml/min; Est GFR (African American) 100.7 ml/min; Est GFR (Non-African American) 86.9 ml/min; Phosphorus 2.5 mg/dl (2.5-4.9); Potassium 3.6 mmol/L (3.5-5.1)
[2022-09-01] MEDS: FAMOTIDINE 20 MG TAB PO SCH (08:17)
[2022-09-01] MEDS: MULTIVITAMIN TAB PO SCH (08:17)
[2022-09-01] MEDS: FLUTICASONE/UMECLIDIN/VILANTER 100-62.5-25 INH SCH (08:18)
[2022-09-01] MEDS: FOLIC ACID 1 MG in SYRINGE 9.8 ML IV SCH (08:19)
[2022-09-01] MEDS: THIAMINE HCL 100 MG in SYRINGE 9 ML IV SCH (08:20)
--- NOTE | 2022-09-01 08:36 | Surgery Progress Note ---
Date of Service September 01, 2022 Assessment & Plan (1) Diverticulitis of large intestine with abscess: Plan: MRI of the liver to further delineate the left lobe hypodense lesion Since patient is tolerating low fiber diet and moving her bowels and beginning to be semiformed from surgical point of view she can be discharged continue low fiber diet until her bowels completely normalize and go to a high-fiber diet Recommend that she be discharged on p.o. antibiotics Cipro Flagyl for another week and I will follow the patient in the office in 2 weeks time sooner if there is any Admission and Anticipated Discharge Date Admission Date: August 30, 2022 Subjective Feels much better the pain that she had described yesterday located in left lower quadrant left flank was transient and disappeared fairly quickly She is following a low fiber diet and her bowels are moving Physical Exam Physical Exam: Abdomen completely benign Results & Data ([facility]) Vital Signs (Past 12 Hours) Vital Signs Temp Pulse Pulse Resp BP Pulse Ox Pulse Ox 09/01/22 07:54 36.7 C 71 16 113/68 92 08/31/22 22:37 94 H 09/01/22 02:00 96 09/01/22 02:52 36.8 C 75 18 105/63 93 08/31/22 23:58 36.8 C 90 18 126/75 94 O2 Del Method O2 Del Method 09/01/22 07:54 Room Air 08/31/22 22:37 09/01/22 02:00 Room Air 09/01/22 02:52 Room Air 08/31/22 23:58 Room Air Diagnostic Findings I reviewed the CAT scan that was done at [facility] we finally were able to get it yesterday and the most recent CAT scan after reviewing with the radiologist there is no evidence of any significant hepatic abscess except 0.7 mm right hepatic lobe and a 3.7 cm irregularly hypodense lesion in the left lobe of the liver by radiologist felt to be unlikely an abscess but cannot rule out a malignant lesion (1) Diverticulitis of large intestine with abscess Diverticulitis bleeding: without bleeding Qualified Code(s): K57.20 - Diver ticulitis of large intestine with perforation and abscess without bleeding
[2022-09-01] MEDS: LORazepam 0.5 MG TAB PO PRN ×2 (11:52→20:49)
[2022-09-01] MEDS ORDERED: FLUTICASONE/UMECLIDIN/VILANTER 100-62.5-25 INH SCH (12:10)
[2022-09-01] MEDS: UMECLIDINIUM/VILANTEROL 62.5/25MCG 7 PUFFS/INHALER INH SCH (12:28)
[2022-09-01] MEDS: FLUTICASONE FUROATE 100MCG 14 PUFFS/INHALER INH SCH (12:28)
--- NOTE | 2022-09-01 16:36 | Hospitalist Progress Note ---
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 She received a CAT scan as an outpatient which showed acute sigmoid diverticulitis with 2.6 cm marginal intramural abscess and concern for hepatic abscess and hence was sent to the ED for further evaluation and treatment. She is being managed for the following: Abdominal pain Sigmoid diverticulitis complicated with abscess Concern for hepatic abscess Patient presents with lower abdominal pain for 2 to 3 weeks BUSINESS INFORMATION CONSULTANT associated with constipation. Patient with no complaint of upper abdominal pain or RUQ pain at admission. Patient does have history of hepatic abscess in 2019 which was drained at [place] and was treated with oral long-term antibiotic. Patient declined PICC line at that time. 08/[address] scan abdomen pelvis with acute sigmoid diverticulitis with a 2.6 cm marginal intramural abscess. No fistula. Hepatic hypoattenuating lesions consistent with abscess and 4.5 cm left adnexal cyst. Discussed with radiology on-call 08/30, for hepatic lesions can repeat imaging in the form of ultrasound liver in few days. Patient started on Zosyn and daptomycin 08/30, will continue with same for now. 08/29 blood culture: [id number], f/u Surgery evaluated, conservative management, low fiber diet until bm normalizes ID consult, await recs. Left adnexal cyst: See CT scan abdomen pelvis above, patient to follow-up with NEEDLE PROCESS FELT GOODS SUPERVISOR as an outpatient but did not follow. Discussed with NEEDLE PROCESS FELT GOODS SUPERVISOR 08/30, plan to follow her up as an outpatient. Patient aware. Alcohol abuse: Drinks 2-3 large glasses of vodka cocktails every night, has withdrawal in the past when admitted in the hospital but has not had any seizure history per patient. We will continue with AWSS protocol. Monitor and replete electrolytes. Tobacco abuse: Smokes 1 packs a day. Counseled about cessation of smoking and drinking, patient stated she will think about it but also states that she will not be able to leave it because she enjoys them. Other chronic medical conditions: GERD, HLD, RLD, COPD, LIZ -- Resume home meds as able. DVT prophylaxis: SCDs Disposition: Pending ID parviz. Admission and Anticipated Discharge Date Admission Date: August 30, 2022 Subjective Patient seen and examined at bedside as a follow-up of sigmoid diverticulitis with intramural abscess, concern for hepatic abscess and chronic left adnexal cyst. Patient was lying in bed, on room air, NAD, reports no new acute event overnight, no belly pain today, denies any fever , reports feeling better, denies any new cough or chest pain or or headache or upper belly pain. Reports small bm again today. Physical Exam Physical Exam: GENERAL: Alert and oriented x3. NAD, on RA. HEENT: No pallor, no icterus. Pupils equal, round and reactive to light. Oral mucosa moist. NECK: No JVD, no neck masses. HEART: S1 and S2 heard. Regular rate and rhythm. No murmur, no gallop. RESPIRATORY SYSTEM: Normal AP diameter. No accessory muscle use. No wheezing, no crackles. ABDOMEN: Soft, bowel sounds present, nontender, no distention. CENTRAL NERVOUS SYSTEM: No facial droop. Speech is clear. Obeys simple commands. Moves extremities. EXTREMITIES: No edema, no erythema seen. Results & Data Results & Data ([facility]) Vital Signs (Past 12 Hours) Vital Signs Temp Pulse Pulse Resp BP BP Pulse Ox 09/01/22 16:28 86 09/01/22 16:13 37.0 C 82 16 118/59 L 95 09/01/22 11:38 82 09/01/22 11:51 37.1 C 81 135/71 95 09/01/22 07:54 36.7 C 71 16 113/68 92 O2 Del Method 09/01/22 16:28 09/01/22 16:13 Room Air 09/01/22 11:38 09/01/22 11:51 Room Air 09/01/22 07:54 Room Air (1) Diverticulitis of large intestine with abscess Diverticulitis bleeding: without bleeding Qualified Code(s): K57.20 - Diverticulitis of large intestine with perforation and abscess without bleeding
[2022-09-01] MEDS: CALCIUM 600MG + VIT D 400 IU TAB PO SCH (20:49)
[2022-09-02] MEDS: DAPTOmycin 375 MG in SYRINGE 0 ML IV SCH (00:30)
[2022-09-02] MEDS: PIPERACILLIN/TAZOBACTAM 3.375 GM in DEXTROSE 5% 100 ML IV SCH ×2 (05:44→12:14)
[2022-09-02 07:07] LABS: Mean Corpuscular Hemoglobin 36.1 pg (25.0-34.0); Mean Corpuscular Hgb Conc 33.3 g/dL (32.0-36.0); Mean Corpuscular Volume 108.4 fL (80.0-100.0); Mean Platelet Volume 10.7 fL (9.4-12.4); Platelet Count 158 K/uL (130-400); RDW Coefficient of Variation 13.8 % (11.5-14.5); Red Blood Count 3.32 M/uL (4.20-5.40); White Blood Count 4.07 K/ul (4.8-10.8)
[2022-09-02] MEDS: FOLIC ACID 1 MG in SYRINGE 9.8 ML IV SCH (08:05)
[2022-09-02] MEDS: FLUTICASONE FUROATE 100MCG 14 PUFFS/INHALER INH SCH (08:05)
[2022-09-02] MEDS: FAMOTIDINE 20 MG TAB PO SCH (08:05)
[2022-09-02] MEDS: MULTIVITAMIN TAB PO SCH (08:05)
[2022-09-02] MEDS: UMECLIDINIUM/VILANTEROL 62.5/25MCG 7 PUFFS/INHALER INH SCH (08:05)
[2022-09-02] MEDS: THIAMINE HCL 100 MG in SYRINGE 9 ML IV SCH (08:06)
[2022-09-02] MEDS ORDERED: ADVANCED PROBIOTIC 1250 MG CAPSULE PO SCH (09:00)
[2022-09-02] MEDS: LORazepam 0.5 MG TAB PO PRN (10:20)
--- NOTE | 2022-09-02 15:47 | Ultrasound Report ---
US liver CLINICAL HISTORY: f/u hepatic lesion/abscess on CT AP on 08/29/22 TECHNIQUE: Multiple real-time sonographic images of the right upper quadrant were obtained. Comparison: Comparison is made to CT abdomen pelvis 08/29/2022 and liver ultrasound 04/03/2018 FINDINGS: The liver is diffusely echogenic in appearance with poor ultrasound penetration, with normal contour, which is consistent with fatty infiltration. The possible lesion seen on CT is not seen on today's e xam. No intrahepatic ductal dilatation is seen. The gallbladder is contracted as the patient was no t n.p.o. A sonographic Fletcher's sign was not elicited by the staff reporter. The common duct measures 0.4 cm in diameter at the level of the hepatic artery. The visualized portions of the pancreas appea r normal. The right kidney shows normal echogenicity, cortical thickness and renal contour. The right kidney sh ows no evidence of hydronephrosis or mass. There is a 3.5 cm cyst in the left kidney inferior pole. No ascites or free fluid is seen in Schmid's pouch. IMPRESSION: Hepatic steatosis. Previously noted questionable liver mass is not seen on today's exam. ACT 112: Negative or not required by law. Electronically signed by: Jamel Álvarez M.D. 09/02/2022 3:45 PM
--- NOTE | 2022-09-02 16:58 | Discharge Summary ---
Date of Service September 02, 2022 Admission HPI Per Admitting Provider DATE OF ADMISSION: 08/29/2022. CHIEF COMPLAINT: Abdominal pain, diverticulitis. HISTORY OF PRESENT ILLNESS: A 67-year-old female with past medical history significant for hyperlipidemia, hypokalemia, hypomagnesemia, prediabetes, COPD, ongoing tobacco abuse, smokes 1 pack a day, history of lung nodules and restrictive lung disease, hypertension, alcoholic cirrhosis of liver, GERD, depression, generalized anxiety disorder, ongoing alcohol abuse, drinks 2-3 shots of vodka daily. Presents with abdominal pain going on for the last couple of weeks and constipation. Went to see family doctor yesterday and CAT scan was done as outpatient which is showing acute sigmoid diverticulitis, 2.6 cm marginal intramural abscess, no fistula, secondary inflammatory change within the uterus, adnexa, and bladder, a couple of new hepatic hypoattenuating lesions, most consistent with abscess, recommend MRI of the liver for confirmation, and a 4.5 cm left adnexal cyst. The patient was brought to the hospital, received antibiotics. The patient had a similar episode in January of 2020. At that time, also she was admitted for mild diverticulitis and MRI of the liver was performed at that time and was showing a 5 cm abscess, and she was transferred to [place]. Abscess was drained and cultures were sterile, and as she declined PICC line, she was discharged on Cipro and Flagyl for 3 weeks and followed with ID. As the CAT scan was still showing some residual abscess, she was prescribed another 2 weeks of Cipro and Flagyl and subsequent ultrasound showed clearance of the abscess .She also followed with PLANNER/SCHEDULER because of the left ovarian complex cyst. There was a question of cystic ovarian neoplasm and advised for followup, which the patient did not follow up. The patient denies any fevers. Currently, the patient is resting comfortably, hemodynamically stable. She says for the last 2 days, the pain is better. Denies any headache. No blurred visions, no earache, no runny nose, no sore throat. She h as chronic cough from her smoking and on and off shortness of breath from her COPD. Denies any chest pain. Currently, no nausea, somewhat constipated, no blood in the stools. Normal bladder movements. No swelling in the legs. ALLERGIES: No known drug allergies. PAST MEDICAL HISTORY: As mentioned above. PAST SURGICAL HISTORY: Right breast biopsy, , colonoscopy, conization of cervix, dental surgery, EGD, EGD with endoscopic ultrasound, injection of lumbosacral spine, removal of partial vulva, ectopic . MEDICATIONS: The patient is on albuterol 2 puffs inhalation q. 4 hours p.r.n., calcium carbonate 1 tablet p.o. at bedtime, famotidine 20 mg p.o. daily, Trelegy Ellipta one inhalation daily, folic acid 1 mg p.o. daily, lorazepam 0.5 mg p.o. t.i.d. p.r.n., magnesium 125 mg p.o. daily, multivitamin 1 tablet p.o. daily, thiamine 100 mg p.o. daily. FAMILY HISTORY: Significant for brother had skin cancer; father had prostate cancer; hypertension; mother had throat cancer. SOCIAL HISTORY: Still smokes 1 pack a day for last 45 years. Alcohol, 2-3 shots of vodka daily. No drug use. REVIEW OF SYSTEMS: As per HPI. Rest of review of systems is negative. Admission Exam Per Admitting Provider GENERAL: The patient is of moderate built, not in acute distress. VITAL SIGNS: Temperature 37.2, pulse 93, respiratory 23, blood pressure 126/71, oxygen 90% on room air. HEENT: Pupils equal, round and reactive to light. Oral mucosa moist. NECK: No JVD, no neck masses. CARDIOVASCULAR: S1 and S2 heard. Regular rate and rhythm. No murmur, no gallop. RESPIRATORY SYSTEM: Normal AP diameter. No accessory muscle use. No wheezing or crackles. ABDOMEN: Soft, bowel sounds present. Mild discomfort, no guarding, no rigidity, no distention. CENTRAL NERVOUS SYSTEM: Cranial nerves II-XII grossly intact, nonfocal. EXTREMITIES: No edema, no erythema. Principal Diagnosis Acute sigmoid diverticulitis complicated with intramural abscess Concern for hepatic abscess Left complex ovarian cyst Smoking Alcohol abuse Discharge Exam GENERAL: Alert and oriented x3. NAD, on RA. HEENT: No pallor, no icterus. Pupils equal, round and reactive to light. Oral mucosa moist. NECK: No JVD, no neck masses. HEART: S1 and S2 heard. Regular rate and rhythm. No murmur, no gallop. RESPIRATORY SYSTEM: Normal AP diameter. No accessory muscle use. No wheezing, no crackles. ABDOMEN: Soft, bowel sounds present, nontender, no distention. CENTRAL NERVOUS SYSTEM: No facial droop. Speech is clear. Obeys simple commands. Moves extremities. EXTREMITIES: No edema, no erythema seen. Discharge Data Allergies Allergy/AdvReac Type Severity Reaction Status Date / Time No Known Allergies Allergy Verified 01/24/20 19:55 Consultations 08/29/22 22:42 ED Decision to Admit Stat 08/30/22 08:00 Consult General Surgery Routine Consult Obstetrics Routine 08/30/22 09:35 Consult Infectious Diseases Routine Ordered Studies 09/02/22 08:24 US liver Routine Hospital Course (1) Diverticulitis of large intestine with abscess: Plan 67-year-old lady with PMH of alcohol abuse [2-3 large glasses of vodka cocktails every night], tobacco abuse [smokes 1 packs a day], pulm nodules, restrictive lung disease, alcoholic cirrhosis of liver, left adnexal mass, GERD, depression, LIZ, HLD, prediabetes, COPD presented to the ED 08/29 with complaint of ongoing lower belly pain for the last 2 to 3 weeks DOWNSTAIRS MAID associated with constipation. She received a CAT scan as an outpatient which showed acute sigmoid diverticulitis with 2.6 cm marginal intramural abscess and concern for hepatic abscess and hence was sent to the ED for further evaluation and treatment. She is being managed for the following: Abdominal pain Sigmoid diverticulitis complicated with abscess Concern for hepatic abscess Patient presents with lower abdominal pain for 2 to 3 weeks DOWNSTAIRS MAID associated with constipation. Patient with no complaint of upper abdominal pain or RUQ pain at admission. Patient does have history of hepatic abscess in 2019 which was drained at [place] and was treated with oral long-term antibiotic. Patient declined PICC line at that time. 08/[address] scan abdomen pelvis with acute sigmoid diverticulitis with a 2.6 cm marginal intramural abscess. No fistula. Hepatic hypoattenuating lesions consistent with abscess and 4.5 cm left adnexal cyst. Discussed with radiology on-call 08/30, for hepatic lesions can repeat imaging in the form of ultrasound liver in few days. --> 09/02 USG liver: Hepatic steatosis. The previously noted questionable liver mass is not seen.---> ID evaled, patient will need repeat CT of the abdomen pelvis as an outpatient in 2 to 3 weeks time and ID follow-up. Patient started on Zosyn and daptomycin 08/30, ID evaluated, patient being discharged on ciprofloxacin and metronidazole. Patient to follow-up with ID with repeat CT scan of the abdomen pelvis in 3 weeks time to determine on the duration of the antibiotic therapy. Patient aware. 08/29 blood culture: [id number], f/u Surgery evaluated, conservative management, low fiber diet until bm normalizes. Patient to follow-up with surgery in 2 weeks time upon discharge. Patient to follow-up with PCP in a week time upon discharge. Left adnexal cyst: See CT scan abdomen pelvis above, patient to follow-up with PLANNER/SCHEDULER as an outpatient but did not follow. Discussed with PLANNER/SCHEDULER 08/30, plan to follow her up as an outpatient. Patient aware. Alcohol abuse: Drinks 2-3 large glasses of vodka cocktails every night, has withdrawal in the past when admitted in the hospital but has not had any seizure history per patient. Patient indicated that she will not be able to stop drinking alcohol. Tobacco abuse: Smokes 1 packs a day. Counseled about cessation of smoking and drinking, patient stated she will think about it but also states that she will not be able to leave it because she enjoys them. Other chronic medical conditions: GERD, HLD, RLD, COPD, LIZ -- Resume home meds as able. DVT prophylaxis: SCDs Disposition: Pending ID eval. Patient being discharged home with following instruction at the point of discharge: Follow-up with the primary care physician within a week time and likely you will need labs CBC/CMP/magnesium/phosphorus. Maintain low fiber diet for a week, and then you can progress to your regular consistency as tolerated. General surgery evaluated you for acute sigmoid diverticulitis with abscess. Follow-up with general surgery in 2 weeks time upon discharge. Infectious disease evaluated you for concern of hepatic abscess. You are being discharged on ciprofloxacin 500 mg twice a day and metronidazole 500 mg every 8 hours. You will need a repeat CT scan of the abdomen pelvis to look at the hepatic abscess in 2 to 3 weeks time. You will be discharged with 1 month worth of antibiotic. It is very important that you follow-up with infectious disease doctor in 3 to 4 weeks time before the antibiotics run out as the duration of antibiotic will be determined at that time. Please get your CT scan of the abdomen prior to following up with infectious disease. Coordinate with your primary care office or infectious disease office for CT abd/pelvis. For your left adnexal cyst, follow-up with gynecology as an outpatient. Advise quitting smoking and drinking. Take your medications as prescribed. Please make sure that you are able to get your medications today by calling your pharmacy before you leave the hospital so that your treatment continuity is not broken. Home Health Attestation I certify that this patient is under my care and that I, or a physicians chemist assistant working with me, had a face to-face encounter that meets the home health [id number] encounter requirements with this patient. The encounter with the patient was in whole, or in part, for the following medical condition, which is the primary reason for home health care (list medical condition): I certify that, based on my findings, the following services are medically necessary home health services: My clinical findings support the need for the above services because: Further, I certify that my clinical findings support that this patient is homebound (i.e. absences from home require considerable and taxing effort and are for medical reasons or restorationism services or infrequently or of short duration when for other reasons) because: Certification for Home Health Services: Based on the above findings, I certify that this patient is confined to the home and needs intermittent fpc care, physical therapy and/or speech therapy or continues to need occupational therapy. The patient is under my care, and I have initiated the establishment of the plan of care. This patient will be followed by a physician who will periodically review the plan of care. Total Time Total Time Spent Total Time Spent (In Minutes): 50 Discharge Plan Discharge Items Patient Disposition: Home - Self-Care Reason For Visit: DIVERTICULITIS Discharge Diagnosis: Acute sigmoid diverticulitis complicated with intramural abscess Concern for hepatic abscess Left complex ovarian cyst Smoking Alcohol abuse Activity: Resume your previous activity Non-emergency contact: Primary Care Provider Call non-emergency contact if: you have any medication questions, your symptoms worsen, your pain is not controlled and your temperature is above 101 Follow-up/Referrals: Ean Anne MD, FACS [Surgeon] - (Please call to schedule follow up in clinic within 2 weeks) [address] Morales DO [Primary Care Provider] - Diet: Low Fiber Addtl Attending Provider Instructions: Follow-up with the primary care physician within a week time and likely you will need labs CBC/CMP/magnesium/phosphorus. Maintain low fiber diet for a week, and then you can progress to your regular consistency as tolerated. General surgery evaluated you for acute sigmoid diverticulitis with abscess. Follow-up with general surgery in 2 weeks time upon discharge. Infectious disease evaluated you for concern of hepatic abscess. You are being discharged on ciprofloxacin 500 mg twice a day and metronidazole 500 mg every 8 hours. You will need a repeat CT scan of the abdomen pelvis to look at the hepatic abscess in 2 to 3 weeks time. You will be discharged with 1 month worth of antibiotic. It is very important that you follow-up with infectious disease doctor in 3 to 4 weeks time before the antibiotics run out as the duration of antibiotic will be determined at that time. Please get your CT scan of the abdomen prior to following up with infectious disease. Coordinate with your primary care office or infectious disease office for CT abd/pelvis. For your left adnexal cyst, follow-up with gynecology as an outpatient. Advise quitting smoking and drinking. Take your medications as prescribed. Please make sure that you are able to get your medications today by calling your pharmacy before you leave the hospital so that your treatment continuity is not broken. Pending Studies at Discharge: Yes (Admitting blood culture final results.) Stand-Alone Forms: My [facility] ASI System Integration, Smoking Cessation Medications and DC Order Prescriptions: New Advanced Probiotic 625 mg (10 billion cell) Capsule 2 cap PO DAILY 30 Days Qty: 60 0RF ciprofloxacin HCl 500 mg tablet 500 mg PO BID Qty: 60 0RF metronidazole 500 mg tablet 500 mg PO Q8H Qty: 90 0RF Continued lorazepam 1 mg Tablet 0.5 mg PO TID PRN (Reason: Anxiety) cholecalciferol (vitamin D3) [Vitamin D3] 1,000 unit Capsule 1,000 units PO Q2D calcium carbonate-vitamin D3 600 mg(1,500mg) -800 unit Tablet 1 tab PO HS multivitamin tablet 1 tab PO DAILY Qty: 30 0RF thiamine HCl (vitamin B1) 100 mg tablet 100 mg PO DAILY Qty: 30 0RF folic acid 1 mg tablet 1 mg PO DAILY Qty: 30 5RF magnesium 250 mg Tablet 125 mg PO DAILY albuterol sulfate 90 mcg/actuation Hfa Aerosol Inhaler 2 puff INHALATION DIRECTED PRN (Reason: Shortness Of Breath Or Wheezing) Jakycea Cream 1 applic topical DIRECTED famotidine 20 mg tablet 20 mg PO DAILY Trelegy Ellipta 100-62.5-25 mcg blister with device 1 inh INHALATION DAILY Discharge Orders: Discharge Order (Routine); Ordered 09/02/22 Ordered By: Keyona Lucia Admission Data Admit Date/Time: 08/30/22 00:00 Attending Provider: Keyona Lucia Admit Provider: Mode Abraham Primary Care Provider: Ct Morales Other Providers: Mode Abraham ; Eleuterio Dasilva ; Skip Gutierrez ; Conchis Avalos ; Cornelia Andersen ; Sotero Kelsey ; Johnny Khan ; Jana Mckinnon ; Jody Vargas ; Lawrence Saenz Jr ; Linn Diggs ; Pancho Mcallister ; Ashley Pacheco ; Raheem Jha ; Mary Gutierrez ; Nano Thornton ; Yefri Ortiz ; Edgar Ramires ; Ankit Gottlieb ; Lloyd Burdick ; Ofelia Davenport ; Kristine Berrios V. ; Gina Pedro ; Kelley Chi ; Shaunna Kaminski ; Lila Monreal ; Sanaz Van ; Areli Wright ; Javan Pineda ; Nirav Still ; Malinda Pierre ; Alessandro Vallejo I. ; Ford Zavaleta II ; Rajani Simon ; Skip Fraga ; Lawrence Jimenez ; Champ Chambers
[2022-09-02] MEDS ORDERED: GABAPENTIN 600 MG TAB PO SCH (18:00)
== END 2022-09-02 18:20 | disposition home or self-care (01) | DRG 391 ==
LOC: ED 18:15 → 4W 08-30 → SUATTDRO 08-30 → 4W 08-30 01:53 → 2N 09-01 11:42

== ENCOUNTER 2024-04-19 16:14 | Inpatient (IN) ==
--- NOTE | 2024-04-19 16:39 | Emergency Department Note ---
History of Present Illness General Chief Complaint: Shortness of Breath/Dyspnea Stated Complaint: SOB,WEAKNESS, RUN DOWN Time Seen by Provider: 04/19/24 16:26 History of Present Illness Provider Complaint: shortness of breath Onset (ago): day(s) (4) Severity: moderate Consistency/Duration: + progressively worsening Relieved By: + nothing Exacerbated By: + coughing Context: + recent illness Known history of: COPD Associated symptoms: + cough, + wheezing, + sputum production and + chest congestion; no chest pain, no orthopnea, no hemoptysis, no abdominal pain or no rash HPI Narrative: No history of intubation or ICU admission for COPD Related Data Home oxygen amount: none Home Medications Medication Instructions Recorded Confirmed Type cholecalciferol (vitamin D3) 25 1,000 units PO Q2D 04/02/18 04/19/24 History mcg (1,000 unit) capsule (Vitamin D3) lorazepam 1 mg tablet 0.5 - 1 mg PO TID PRN Anxiety 04/02/18 04/19/24 History folic acid 1 mg tablet 1 mg PO DAILY #30 tabs 04/13/18 04/19/24 Rx thiamine HCl (vitamin B1) 100 mg 100 mg PO DAILY #30 tabs 04/13/18 04/19/24 Rx tablet albuterol sulfate 90 mcg/actuation 2 puff inhalation Q4H PRN 01/24/20 04/19/24 History aerosol inhaler Shortness Of Breath Or Wheezing magnesium 250 mg tablet 125 mg PO DAILY 01/24/20 04/19/24 History fluticasone fur. 100 mcg-umeclid 1 inh inhalation DAILY 08/30/22 04/19/24 History 62.5 mcg-vilant 25 mcg inhalat.powder (Trelegy Ellipta) atorvastatin 20 mg tablet 20 mg PO QAM 04/19/24 04/19/24 History calcium carbonate 500 mg PO HS 04/19/24 04/19/24 History duloxetine 30 mg capsule,delayed 30 mg PO QAM 04/19/24 04/19/24 History release famotidine 20 mg tablet 20 mg PO BID 04/19/24 04/19/24 History gabapentin 600 mg tablet 600 mg PO BID 04/19/24 04/19/24 History metronidazole 1 % topical gel 1 applic topical DAILY PRN 04/19/24 04/19/24 History (Metrogel) Perioral Dermatitis multivitamin 1 tab PO HS 04/19/24 04/19/24 History pantoprazole 20 mg tablet,delayed 20 mg PO QAM 04/19/24 04/19/24 History release Allergies Allergy/AdvReac Type Severity Reaction Status Date / Time No Known Allergies Allergy Verified 04/19/24 19:48 Past Med/Surg History Problem List Pneumonia (Acute) Hypoxia (Acute) Diverticulitis of large intestine with abscess (Acute) Lesion of liver (Acute) Alcohol dependence (Acute) Liver abscess Hematuria Hypoxia Tobacco use Liver lesion Diverticulitis (Acute) Elevated LFTs Rectal bleeding Elevated d-dimer Macrocytic anemia PVT (portal vein thrombosis) Fluid overload Alcohol use (Chronic) Encounter for pre-operative examination Hypomagnesemia (Acute) Hypophosphatemia (Acute) Common bile duct dilatation (Acute) Abdominal pain (Acute) DVT prophylaxis (Acute) Discharge planning issues (Acute) Alcohol withdrawal (Acute) Hyperbilirubinemia (Acute) UTI (urinary tract infection) Pulmonary embolism (Acute) Sepsis (Acute) Hypertension (Chronic) Hyperlipidemia (Chronic) Anxiety (Chronic) Diverticulosis of colon (Chronic) Hypokalemia (Acute) Respiratory failure, acute Depression (Chronic) Fatty liver (Chronic) AA (alcohol abuse) (Chronic) Tobacco abuse (Chronic) GERD (gastroesophageal reflux disease) (Chronic) H/O: (Chronic) History of oophorectomy, unilateral (Chronic) H/O wisdom tooth extraction (Chronic) Medical History (Updated 04/19/24 @ 21:32 by Thom Chambers MD) Hx of ectopic Transaminitis Surgical History Hx of eye surgery Family History Other No significant family history Social History Smoking Status: Current every day smoker Tobacco Type: Cigarettes Cigarettes Per Day: one pack; Second Hand Exposure: Yes; Do You Dip or Chew Tobacco: No; Hx Alcohol Use: Yes Alcohol type: hard liquor Hx Substance Use: No Preferred Language: Indonesian Communication Ability: Effective Door Tender Required: No Beliefs That Will Affect Care: None marital status: Single Current Living Situation: Alone Feels Safe at Home: Yes Assistive Devices: None Physical Exam 2 Vital Signs: Vital Signs - 24 hr 04/19/24 16:23 04/19/24 16:35 04/19/24 16:43 Temperature 36 C L Temperature Source Temporal Artery Sc an Pulse Rate 123 H 110 H Pulse Rate from Sp O2 Sensor Pulse Rhythm Regular Respiratory Rate 18 18 Respiratory Effort / Characteristics Non-Labored Respiratory Depth Normal Respiratory Patter n Regular Blood Pressure 138/81 Blood Pressure Liliya n 100 Pulse Oximetry 85 L 84 L 96 Oxygen Delivery Me thod Room Air Nasal Cannula Nasal Cannula Oxygen Flow Rate 0 2.5 Sepsis Recent Feve r Within 48 Hours No Sepsis New/Unexpla ined Change in Men francisco javier Status N/A Sepsis Action Take n by Nursing No Action Required Oxygen Flow Rate - Titration 2.5 Pulse Oximetry Pos t Tiitration 95 04/19/24 17:01 04/19/24 17:09 04/19/24 17:36 Temperature Temperature Source Pulse Rate 109 H 110 H Pulse Rate from Sp O2 Sensor 110 H Pulse Rhythm Respiratory Rate 25 H Respiratory Effort / Characteristics Spontaneous Labore d Respiratory Depth Normal Respiratory Patter n Regular Blood Pressure Blood Pressure Liliya n Pulse Oximetry 92 Oxygen Delivery Me thod Nasal Cannula Room Air Oxygen Flow Rate 2.5 Sepsis Recent Feve r Within 48 Hours Sepsis New/Unexpla ined Change in Men francisco javier Status Sepsis Action Take n by Nursing Oxygen Flow Rate - Titration Pulse Oximetry Pos t Tiitration 04/19/24 19:42 04/19/24 19:51 04/19/24 20:06 Temperature Temperature Source Pulse Rate 105 H 102 H 97 H Pulse Rate from Sp O2 Sensor 106 H 98 H 97 H Pulse Rhythm Respiratory Rate 24 20 16 Respiratory Effort / Characteristics Respiratory Depth Respiratory Patter n Blood Pressure 141/106 H 141/106 H 135/89 Blood Pressure Liliya n 117 117 104 Pulse Oximetry 91 93 98 Oxygen Delivery Me thod Room Air Room Air Room Air Oxygen Flow Rate Sepsis Recent Feve r Within 48 Hours Sepsis New/Unexpla ined Change in Men francisco javier Status Sepsis Action Take n by Nursing Oxygen Flow Rate - Titration Pulse Oximetry Pos t Tiitration 04/19/24 20:33 04/19/24 20:54 Temperature Temperature Source Pulse Rate 109 H 106 H Pulse Rate from Sp O2 Sensor 99 H Pulse Rhythm Respiratory Rate 26 H Respiratory Effort / Characteristics Respiratory Depth Respiratory Patter n Blood Pressure 151/79 H Blood Pressure Liliya n 103 Pulse Oximetry 91 Oxygen Delivery Me thod Room Air Oxygen Flow Rate Sepsis Recent Feve r Within 48 Hours Sepsis New/Unexpla ined Change in Men francisco javier Status Sepsis Action Take n by Nursing Oxygen Flow Rate - Titration Pulse Oximetry Pos t Tiitration Physical Exam: Physical Exam GENERAL: oriented to person, place, and time. appears well-developed and well- nourished. HENT: Exam performed. - Head: Normocephalic and atraumatic. EYES: Conjunctivae and EOM are normal. Right eye exhibits no discharge. Left eye exhibits no discharge. No scleral icterus. NECK: Normal range of motion. Neck supple. No JVD present. CV: Tachycardic rate, regular rhythm, normal heart sounds and intact distal pulses. There is no peripheral edema. Palpable radial pulses bue. PULM/CHEST: Diminished breath sounds bilaterally. Scant expiratory wheezes bilaterally. ABD: The abdomen is soft. There is no tenderness. NEURO: Motor and sensation grossly intact. SKIN: Skin is warm and dry. He is not diaphoretic. PSYCH: normal mood and affect. Behavior is normal. Judgment and thought content normal. Course Course 162: The patient was evaluated in room A2. A complete history and physical exam was performed Cardiac monitoring: An order was placed for continuous cardiac monitoring. The monitor shows a rate of 110 with sinus tachycardia rhythm interpreted by me Patient was found to be hypoxic on room air. Supplemental oxygen was applied via nasal cannula which improved the patient's oxygen saturation. 1935: Vital signs stable on supplemental oxygen via nasal cannula. Labs are unremarkable with exception of an elevated D-dimer. CT of the chest showed no PE but did show groundglass consolidation in the lingula and left lung. The appearance was suggestive of an acute infectious/inflammatory bronchitis/pneumonitis. Radiology also reports that the findings may represent a chronic/atypical infectious process such as an atypical Mycobacterium. Given these findings, sputum culture will be sent. Patient be treated with Rocephin and azithromycin. Prednisone also given given the patient's history of COPD. Discussed the case with Dr. Garber [facility] hospitalist will evaluate the patient and determine if any additional antibiotics need to be given. Administered Medications Potassium Chloride/Sodium Chloride (Normal Saline W/20 Meq Kcl) 20 meq in 1,000 mls @ 100 mls/hr IV .Q10H ONE Stop: 04/20/24 05:38 Last Admin: 04/19/24 20:07 Dose: 100 mls/hr Documented By: [facility] Magnesium Sulfate/Dextrose (Magnesium Sulfate / D5w) 1 gm in 100 mls @ 50 mls/hr IV Q2H FELIX Stop: 04/20/24 00:59 Last Admin: 04/19/24 21:11 Dose: 50 mls/hr Documented By: [facility] Discontinued Medications Albuterol (Albut/Ipratrop 3mg/0.5mg Neb 3 Ml Vial) 3 ml NEB NOW STA; Protocol Stop: 04/19/24 16:36 Last Admin: 04/19/24 16:40 Dose: 3 ml Documented By: [facility] Albuterol (Albut/Ipratrop 3mg/0.5mg Neb 3 Ml Vial) 3 ml NEB NOW STA; Protocol Stop: 04/19/24 19:30 Last Admin: 04/19/24 20:02 Dose: 3 ml Documented By: [facility] Azithromycin (Azithromycin 250 Mg Tab) 500 mg PO NOW ONE Stop: 04/19/24 19:30 Last Admin: 04/19/24 20:00 Dose: 500 mg Documented By: [facility] Gabapentin (Gabapentin 600 Mg Tab) 1,200 mg PO NOW ONE Stop: 04/19/24 21:01 Last Admin: 04/19/24 21:19 Dose: 1,200 mg Documented By: [facility] Ceftriaxone Sodium (Rocephin) 2,000 mg in 50 mls @ 100 mls/hr IV NOW STA Stop: 04/19/24 19:58 Last Admin: 04/19/24 19:58 Dose: 100 mls/hr Documented By: [facility] Thiamine HCl 100 mg/ Syringe 10 mls @ 2 mls/min IV NOW STA Stop: 04/19/24 20:48 Last Admin: 04/19/24 21:20 Dose: 2 mls/min Documented By: [facility] Ioversol (Optiray 320 125ml) 116 ml IV ONCE ONE Stop: 04/19/24 18:10 Last Admin: 04/19/24 18:12 Dose: 116 ml Documented By: DANIA Prednisone (Prednisone 50 Mg Tab) 50 mg PO NOW STA Stop: 04/19/24 19:30 Last Admin: 04/19/24 19:59 Dose: 50 mg Documented By: [facility] Medical Decision Making Laboratory Data Attestation: I reviewed the patient's lab results. 04/19/24 16:37 04/19/24 16:37 Lab Results 04/19/24 04/19/24 Range/Units 16:36 16:37 WBC 9.53 (4.8-10.8) K/ul RBC 4.45 (4.20-5.40) M/uL Hgb 15.8 (12.0-16.0) g/dl Hct 48.4 H (37.0-47.0) % MCV 108.8 H (80.0-100.0) fL MCH 35.5 H (25.0-34.0) pg MCHC 32.6 (32.0-36.0) g/dL RDW Std Deviation 51.9 H (36.4-46.3) fL RDW Coeff of Vale 13.0 (11.5-14.5) % Plt Count 177 (130-400) K/uL MPV 10.7 (9.4-12.4) fL Immature Gran % (Auto) 0.5 % Neut % (Auto) 78.5 % Lymph % (Auto) 12.3 % Storey % (Auto) 8.1 % Eos % (Auto) 0.3 % Baso % (Auto) 0.3 % Neut # (Auto) 7.48 H (1.40-6.50) K/uL Lymph # (Auto) 1.17 L (1.20-3.40) K/uL Storey # (Auto) 0.77 H (0.11-0.59) K/uL Eos # (Auto) 0.03 (0.00-0.50) K/uL Baso # (Auto) 0.03 (0.00-0.20) K/uL Immature Gran # (Auto) 0.05 (0.01-0.20) K/uL PT 10.9 (9.0-12.0) Seconds INR 1.0 (0.9-1.1) APTT 29 (21-31) Seconds PTT Ratio 1.1 D-Dimer 550 H* (0-500) ug/L FEU VBG pH 7.38 (7.36-7.41) VBG pCO2 48 (38-50) mmHg VBG pO2 43 mmHg VBG HCO3 28 mmol/L VBG O2 Saturation 73.5 % VBG Base Excess 2.5 mEq/L Sodium 138 (136-145) mmol/L Potassium 3.9 (3.5-5.1) mmol/L Chloride 99 (98-107) mmol/L Carbon Dioxide 28 (21-32) mmol/L Anion Gap 11 (3-11) BUN 9 (6-23) mg/dl Creatinine 0.73 (0.6-1.2) mg/dl Est Cr Clr Drug Dosing 71.0 ml/min eGFR 88.42 BUN/Creatinine Ratio 12.3 (10-20) Glucose 153 H (70-99(Fasting)) mg/dl Estimat Average Glucose 137 mg/dl Hemoglobin A1c 6.4 H (4.5-5.6) % Calcium 9.1 (8.6-10.3) mg/dl Magnesium 1.5 L (1.7-2.4) mg/dl Troponin I High Sens 10.5 (0-14) pg/ml B-Natriuretic Peptide 62 (0-100) pg/ml Lipase 23 (11-82) U/L SARS-CoV-2 (PCR) NEGATIVE (Negative) Influenza Type A (PCR) Negative (Neg) Influenza Type B (PCR) Negative (Neg) RSV (RT-PCR) Negative (Neg) Imaging Data Attestation: I personally reviewed and interpreted this imaging study as follows: My Impression: Chest x-ray negative. Airway clear. No pneumothorax. No consolidation. No cardiomegaly or cephalization.. No free air under the diaphragm. No fractures of the skeletal structures. Radiologist's Impression: Chest X-Ray 04/19/24 16:35 XR chest 1V portable HISTORY: 68 years-old Female Chest pain, nonspecific COMPARISON: 01/25/2020 TECHNIQUE: AP view of the chest FINDINGS: Cardiac mediastinal silhouettes are within normal limits. No pneumothorax, pleural effusion or airspace consolidation. Mild chronic interstitial coarsening at the lung bases. Chronic appearing displaced proximal right humeral fracture. IMPRESSION: Mild chronic interstitial coarsening of lung bases without acute process of the chest. ACT 112: Negative or not required by law. The above report was generated using voice recognition software. It may contain grammatical, syntax or spelling errors. Electronically signed by: Jens Urbina M.D. 04/19/2024 4:48 PM Chest CTA 04/19/24 17:31 CT ANGIOGRAM OF THE CHEST CLINICAL HISTORY: Dyspnea. Fatigue. COMPARISON STUDY: Chest x-ray dated 04/19/2024. Chest CT dated 04/02/2018. TECHNIQUE: Following the IV administration of 116 cc of Optiray 320, CT angiogram of the chest was performed from the upper abdomen to the thoracic inlet utilizing the pulmonary embolus protocol. Images are reviewed in the axial, sagittal, and coronal planes. 3-D MIPS images are created and assessed. IV contrast was administered without complication. A dose lowering technique was utilized adhering to the principles of ALARA. CT DOSE: 750.4 mGy.cm FINDINGS: Thyroid: Imaged portions of the thyroid gland are normal in size and attenuation. Thoracic aorta: There is mild atherosclerotic calcification of the thoracic aorta, which is normal in caliber and demonstrates standard 3-vessel arch anatomy. No dissection is seen. Pulmonary vasculature: The pulmonary trunk is normal in caliber. There are no filling defects identified in main, lobar, or segmental pulmonary branches to suggest pulmonary embolus. Heart: The heart is normal in size and without pericardial effusion. There is coronary artery atherosclerosis. Lungs and pleural spaces: There is bibasilar scarring/atelectasis. Secretions are noted in the trachea. Diffuse peribronchial thickening is observed. There is patchy tree-in-bud consolidation within the lingula. Mild tree-in-bud opacities are also seen in the left lower lobe as well as at the left apex. Foci of mucous plugging are noted. No pleural effusion is identified. Mediastinum: There is no mediastinal lymphadenopathy. Jacqueline: Clear. Axillae: There is no axillary lymphadenopathy. Upper abdomen: There is severe hepatic steatosis. A small hiatal hernia is observed. Skeletal structures: The skeletal structures are osteopenic. No lytic or blastic bony lesions are seen. IMPRESSION: 1. There is no evidence of pulmonary embolus in the main, lobar, or segmental pulmonary arteries. 2. There is tree-in-bud/ground glass consolidation in the lingula, with additional tree-in-bud opacities seen throughout the left lung. There is also diffuse peribronchial thickening with foci of mucus plugging. The appearance suggests an acute infectious/inflammatory bronchitis/pneumonitis. These findings may represent a chronic/atypical infectious process such as atypical mycobacterium. Clinical correlation will be required. Consider nonemergent follow-up with pulmonology. 3. No pleural effusion. 4. Coronary artery atherosclerosis. 5. Severe hepatic steatosis. 6. Additional findings as above. ACT 112: Negative or not required by law. Electronically signed by: Baldemar Ac M.D. 04/19/2024 7:04 PM ECG Data Attestation: I personally reviewed and interpreted this ECG as follows: Interpretation: Sinus tachycardia with rate 115. AR 162 QRS [address] elevation or ST depression MDM Narrative 1626: The patient was evaluated in room A2. A complete history and physical exam was performed Cardiac monitoring: An order was placed for continuous cardiac monitoring. The monitor shows a rate of 110 with sinus tachycardia rhythm interpreted by me Patient was found to be hypoxic on room air. Supplemental oxygen was applied via nasal cannula which improved the patient's oxygen saturation. 1935: Vital signs stable on supplemental oxygen via nasal cannula. Labs are unremarkable with exception of an elevated D-dimer. CT of the chest showed no PE but did show groundglass consolidation in the lingula and left lung. The appearance was suggestive of an acute infectious/inflammatory bronchitis/pneumonitis. Radiology also reports that the findings may represent a chronic/atypical infectious process such as an atypical Mycobacterium. Given these findings, sputum culture will be sent. Patient be treated with Rocephin and azithromycin. Prednisone also given given the patient's history of COPD. Discussed the case with Dr. Garber [facility] [employer] Hospitalist will evaluate the patient and determine if any additional antibiotics need to be given. Impression & Plan Hypoxia, Pneumonia Critical Care Time Critical Care Time: Yes Total Critical Care Time: 70 I have personally spent greater than 70 minutes of critical care time in the direct management of this patient. This includes bedside care, interpretation of diagnostic studies, and testing, discussion with consultants, patient, and family members, and other required patient management activities. This 70 minutes is in excess of all separately billable procedures. Discharge Plan Visit Data Chief Complaint: Shortness of Breath/Dyspnea Stated Complaint: SOB,WEAKNESS, RUN DOWN ED Provider: hTom Chambers Discharge Problem: Hypoxia, Pneumonia Patient Disposition: Admitted As Inpatient Forms Stand Alone Forms: My [facility] Prescriptions Prescriptions: No Action lorazepam 1 mg Tablet 0.5 - 1 mg PO TID PRN (Reason: Anxiety) cholecalciferol (vitamin D3) [Vitamin D3] 1,000 unit Capsule 1,000 units PO Q2D thiamine HCl (vitamin B1) 100 mg tablet 100 mg PO DAILY Qty: 30 0RF folic acid 1 mg tablet 1 mg PO DAILY Qty: 30 5RF magnesium 250 mg Tablet 125 mg PO DAILY albuterol sulfate 90 mcg/actuation Hfa Aerosol Inhaler 2 puff INHALATION Q4H PRN (Reason: Shortness Of Breath Or Wheezing) Trelegy Ellipta 100-62.5-25 mcg blister with device 1 inh INHALATION DAILY gabapentin 600 mg tablet 600 mg PO BID atorvastatin 20 mg tablet 20 mg PO QAM pantoprazole 20 mg tablet,delayed release (DR/EC) 20 mg PO QAM calcium carbonate [Calcium 500] 500 mg calcium (1,250 mg) Tablet 500 mg PO HS duloxetine 30 mg capsule,delayed release(DR/EC) 30 mg PO QAM metronidazole [Metrogel] 1 % Gel 1 applic TOPICAL DAILY PRN (Reason: Perioral Dermatitis) multivitamin tablet 1 tab PO HS famotidine 20 mg tablet 20 mg PO BID Referrals Referrals: Ct Morales DO [Primary Care Provider] - Discharge Problem: Pneumonia Qualifiers: Pneumonia type: due to unspecified organism Laterality: left Lung location: u nspecified part of lung Qualified Code(s): J18.9 - Pneumonia, unspecified organism
[2024-04-19] MEDS: ALBUT/IPRATROP 3MG/0.5MG NEB 3 ML VIAL NEB STA ×2 (16:40→20:02)
[2024-04-19 16:48] LABS: Base Excess VBG 2.5 mEq/L; HCO3 VBG 28 mmol/L; Oxygen Saturation VBG 73.5 %; PCO2 VBG 48 mmHg (38-50); PO2 VBG 43 mmHg; pH VBG 7.38 (7.36-7.41)
--- NOTE | 2024-04-19 16:49 | XRay Report ---
XR chest 1V portable HISTORY: 68 years-old Female Chest pain, nonspecific COMPARISON: 01/25/2020 TECHNIQUE: AP view of the chest FINDINGS: Cardiac mediastinal silhouettes are within normal limits. No pneumothorax, pleural effusion or airspa ce consolidation. Mild chronic interstitial coarsening at the lung bases. Chronic appearing displaced proximal right humeral fracture. IMPRESSION: Mild chronic interstitial coarsening of lung bases without acute process of the chest. ACT 112: Negative or not required by law. The above report was generated using voice recognition software. It may contain grammatical, syntax o r spelling errors. Electronically signed by: Jens Urbina M.D. 04/19/2024 4:48 PM
[2024-04-19 16:53] LABS: Basophils # (auto) 0.03 K/uL (0.00-0.20); Basophils % (auto) 0.3 %; Eosinophils # (auto) 0.03 K/uL (0.00-0.50); Eosinophils % (auto) 0.3 %; Hematocrit (blood only) 48.4 % (37.0-47.0); Hemoglobin 15.8 g/dl (12.0-16.0); Immature Granulocytes # (auto) 0.05 K/uL (0.01-0.20); Immature Granulocytes % (auto) 0.5 %; Lymphocytes # (auto) 1.17 K/uL (1.20-3.40); Lymphocytes % (auto) 12.3 %; Mean Corpuscular Hemoglobin 35.5 pg (25.0-34.0); Mean Corpuscular Hgb Conc 32.6 g/dL (32.0-36.0); Mean Corpuscular Volume 108.8 fL (80.0-100.0); Mean Platelet Volume 10.7 fL (9.4-12.4); Monocytes # (auto) 0.77 K/uL (0.11-0.59); Monocytes % (auto) 8.1 %; Neutrophils # (auto) 7.48 K/uL (1.40-6.50); Neutrophils % (auto) 78.5 %; Platelet Count 177 K/uL (130-400); RDW Standard Deviation 51.9 fL (36.4-46.3); Red Blood Count 4.45 M/uL (4.20-5.40); White Blood Count 9.53 K/ul (4.8-10.8)
[2024-04-19 17:09] LABS: BUN Creatinine Ratio 12.3 (10-20); Calcium 9.1 mg/dl (8.6-10.3); Potassium 3.9 mmol/L (3.5-5.1)
[2024-04-19 17:15] LABS: Troponin I High Sensitivity 10.5 pg/ml (0-14)
[2024-04-19 17:23] LABS: Partial Thromboplastin Ratio 1.1; Partial Thromboplastin Time 29 Seconds (21-31); Prothrombin Time 10.9 Seconds (9.0-12.0)
[2024-04-19 17:27] LABS: D Dimer 550 ug/L FEU (0-500)
[2024-04-19 17:42] LABS: Influenza A virus by PCR Negative (Neg); Influenza B virus by PCR Negative (Neg); RSV by PCR Negative (Neg); SARS CoV2 RNA(COVID-19) Ceph NEGATIVE (Negative)
[2024-04-19] MEDS: OPTIRAY 320 125ml IV ONE (18:12)
--- NOTE | 2024-04-19 19:06 | CT Scan Report ---
CT ANGIOGRAM OF THE CHEST CLINICAL HISTORY: Dyspnea. Fatigue. COMPARISON STUDY: Chest x-ray dated 04/19/2024. Chest CT dated 04/02/2018. TECHNIQUE: Following the IV administration of 116 cc of Optiray 320, CT angiogram of the chest was pe rformed from the upper abdomen to the thoracic inlet utilizing the pulmonary embolus protocol. Images are reviewed in the axial, sagittal, and coronal planes. 3-D MIPS images are created and assessed. I V contrast was administered without complication. A dose lowering technique was utilized adhering to the principles of ALARA. CT DOSE: 750.4 mGy.cm FINDINGS: Thyroid: Imaged portions of the thyroid gland are normal in size and attenuation. Thoracic aorta: There is mild atherosclerotic calcification of the thoracic aorta, which is normal in caliber and demonstrates standard 3-vessel arch anatomy. No dissection is seen. Pulmonary vasculature: The pulmonary trunk is normal in caliber. There are no filling defects identif ied in main, lobar, or segmental pulmonary branches to suggest pulmonary embolus. Heart: The heart is normal in size and without pericardial effusion. There is coronary artery atheros clerosis. Lungs and pleural spaces: There is bibasilar scarring/atelectasis. Secretions are noted in the trache a. Diffuse peribronchial thickening is observed. There is patchy tree-in-bud consolidation within the lingula. Mild tree-in-bud opacities are also seen in the left lower lobe as well as at the left apex . Foci of mucous plugging are noted. No pleural effusion is identified. Mediastinum: There is no mediastinal lymphadenopathy. Jacqueline: Clear. Axillae: There is no axillary lymphadenopathy. Upper abdomen: There is severe hepatic steatosis. A small hiatal hernia is observed. Skeletal structures: The skeletal structures are osteopenic. No lytic or blastic bony lesions are see n. IMPRESSION: 1. There is no evidence of pulmonary embolus in the main, lobar, or segmental pulmonary arteries. 2. There is tree-in-bud/ground glass consolidation in the lingula, with additional tree-in-bud opacit ies seen throughout the left lung. There is also diffuse peribronchial thickening with foci of mucus plugging. The appearance suggests an acute infectious/inflammatory bronchitis/pneumonitis. These find ings may represent a chronic/atypical infectious process such as atypical mycobacterium. Clinical cor relation will be required. Consider nonemergent follow-up with pulmonology. 3. No pleural effusion. 4. Coronary artery atherosclerosis. 5. Severe hepatic steatosis. 6. Additional findings as above. ACT 112: Negative or not required by law. Electronically signed by: Baldemar Ac M.D. 04/19/2024 7:04 PM
[2024-04-19] MEDS: cefTRIAXone SODIUM 2,000 MG/50 ML BAG IV STA (19:58)
[2024-04-19] MEDS: predniSONE 50 MG TAB PO STA (19:59)
[2024-04-19] MEDS: AZITHROMYCIN 250 MG TAB PO ONE (20:00)
[2024-04-19] MEDS: NSS + 20MEQ KCL 20 MEQ/1,000 ML BAG IV ONE (20:07)
--- NOTE | 2024-04-19 20:13 | History & Physical Report ---
Date of Service April 19, 2024 History of Present Illness Chief Complaint: SOB/Dyspnea & Cough Primary Care Provider: Ct Morales DO Malika Gregory is a 68y/o F with PMHx significant for dyslipidemia, prediabetes, COPD, multiple lung nodules, HTN, alcohol abuse, alcoholic cirrhosis of liver without ascites, biliary disease, diverticulitis, GERD without esophagitis, enterocolic fistula, left adnexal mass, depression/anxiety and tobacco use disorder and who presented to the ED for evaluation of SOB/dyspnea and cough. History obtained from patient associated chart review. Patient with increasing SOB and productive cough over the last 4 days. Reports she also feels increasingly lethargic. Mentions she is coughing up clear to yellow sputum production. No fevers. Denies any recent known sick contacts. She does smoke approximately 1 pack/day and drinks 2-3 glasses of vodka every night. Reports her last drink was yesterday evening. She has not been smoking nearly as much over the past 4 days due to her increasing SOB and cough, around 3-5 cigarettes/day. She is on Trelegy. She has been using her rescue albuterol inhaler and albuterol nebulizer treatments at home without much improvement in her breathing. Denies any chest pain, abdominal pain or diarrhea. Was hypoxic on arrival with an O2 sat in the mid 80s. Now sating in the low 90s SpO2 on 3L via NC. No leukocytosis or electrolyte abnormalities. D-dimer elevated at 550. Troponin negative, BNP 62. Lipase 23. RVP negative. CXR with mild chronic interstitial coarsening of the lung bases without an acute process of the chest. Chest CT with no evidence of PE however does note the following: tree-in-bud/ground glass consolidation in the lingual with additional tree-in-bud opacities seen throughout the left lung and diffuse peribronchial thickening with foci of mucous plugging suggesting an acute infectious/inflammatory bronchitis/pneumonitis. May represent a chronic/atypical infectious process such as atypical Mycobacterium. Chest CT also mentions coronary artery atherosclerosis and severe hepatic steatosis. She is s/p albuterol neb x 2, 2g IV Rocephin, 500mg po azithromycin and 50mg po prednisone in the ED. Please refer to Dr. Talavera's assessment and plan. Allergies Allergy/AdvReac Type Severity Reaction Status Date / Time No Known Allergies Allergy Verified 04/19/24 19:48 Home Medications Medication Instructions Recorded Confirmed Type cholecalciferol (vitamin D3) 25 1,000 units PO Q2D 04/02/18 04/19/24 History mcg (1,000 unit) capsule (Vitamin D3) lorazepam 1 mg tablet 0.5 - 1 mg PO TID PRN Anxiety 04/02/18 04/19/24 History folic acid 1 mg tablet 1 mg PO DAILY #30 tabs 04/13/18 04/19/24 Rx thiamine HCl (vitamin B1) 100 mg 100 mg PO DAILY #30 tabs 04/13/18 04/19/24 Rx tablet albuterol sulfate 90 mcg/actuation 2 puff inhalation Q4H PRN 01/24/20 04/19/24 History aerosol inhaler Shortness Of Breath Or Wheezing magnesium 250 mg tablet 125 mg PO DAILY 01/24/20 04/19/24 History fluticasone fur. 100 mcg-umeclid 1 inh inhalation DAILY 08/30/22 04/19/24 History 62.5 mcg-vilant 25 mcg inhalat.powder (Trelegy Ellipta) atorvastatin 20 mg tablet 20 mg PO QAM 04/19/24 04/19/24 History calcium carbonate 500 mg PO HS 04/19/24 04/19/24 History duloxetine 30 mg capsule,delayed 30 mg PO QAM 04/19/24 04/19/24 History release famotidine 20 mg tablet 20 mg PO BID 04/19/24 04/19/24 History gabapentin 600 mg tablet 600 mg PO BID 04/19/24 04/19/24 History metronidazole 1 % topical gel 1 applic topical DAILY PRN 04/19/24 04/19/24 History (Metrogel) Perioral Dermatitis multivitamin 1 tab PO HS 04/19/24 04/19/24 History pantoprazole 20 mg tablet,delayed 20 mg PO QAM 04/19/24 04/19/24 History release Past Med/Surg History Problem List Pneumonia (Acute) Hypoxia (Acute) Diverticulitis of large intestine with abscess (Acute) Lesion of liver (Acute) Alcohol dependence (Acute) Liver abscess Hematuria Hypoxia Tobacco use Liver lesion Diverticulitis (Acute) Elevated LFTs Rectal bleeding Elevated d-dimer Macrocytic anemia PVT (portal vein thrombosis) Fluid overload Alcohol use (Chronic) Encounter for pre-operative examination Hypomagnesemia (Acute) Hypophosphatemia (Acute) Common bile duct dilatation (Acute) Abdominal pain (Acute) DVT prophylaxis (Acute) Discharge planning issues (Acute) Alcohol withdrawal (Acute) Hyperbilirubinemia (Acute) UTI (urinary tract infection) Pulmonary embolism (Acute) Sepsis (Acute) Hypertension (Chronic) Hyperlipidemia (Chronic) Anxiety (Chronic) Diverticulosis of colon (Chronic) Hypokalemia (Acute) Respiratory failure, acute Depression (Chronic) Fatty liver (Chronic) AA (alcohol abuse) (Chronic) Tobacco abuse (Chronic) GERD (gastroesophageal reflux disease) (Chronic) H/O: (Chronic) History of oophorectomy, unilateral (Chronic) H/O wisdom tooth extraction (Chronic) Medical History (Updated 04/19/24 @ 21:32 by Thom Chambers MD) Hx of ectopic Transaminitis Surgical History Hx of eye surgery Family History Other No significant family history Social History Smoking Status: Current every day smoker Tobacco Type: Cigarettes Cigarettes Per Day: 3; Second Hand Exposure: Yes; Do You Dip or Chew Tobacco: No; Hx Alcohol Use: Yes Alcohol type: hard liquor Hx Substance Use: No Preferred Language: Maltese Communication Ability: Effective Health Promotion Educator Required: No Beliefs That Will Affect Care: None marital status: Single Current Living Situation: Alone Other Information That Helps Us Care for You: No Feels Safe at Home: Yes Safety Concerns: Feels Safe At This Time Assistive Devices: Glasses Review of Systems Review of Systems: At least ten systems reviewed and negative, except as noted in the HPI. Physical Exam Physical Exam: General: WD/WN, vitals as above, NAD, sitting up in bed, pleasant, conversing appropriately. A+Ox3, euthymic affect. HEENT: Normocephalic, atraumatic. PERRL, conjunctivae normal, anicteric sclerae. External ear and nose normal, oropharynx normal. Respiratory: Normal respiratory effort, wheezing heard throughout all lung mont[place], coarse rhonchi in bilateral lung bases. No accessory muscle use. Cardiovascular: Regular rate, rhythm, no murmur, normal peripheral pulses, no BLE edema. Vessels: No JVD. Abdomen/GI: Normal bowel sounds, soft, nontender, no hepatosplenomegaly. Extremities/Musculoskeletal: No cyanosis or clubbing, extremities motor strength intact, BUE rather tremulous. Neurologic: EOMI, no focal deficits, CN's II-XI not formally tested but appear grossly intact bilaterally. Skin: No rashes, normal color, warm/dry. Results & Data Results & Data Vital Signs (Past 12 Hours) Vital Signs Temp Pulse Resp BP Pulse Ox O2 Del Method O2 Flow Rate 04/19/24 17:09 109 H 04/19/24 17:01 Nasal Cannula 2.5 04/19/24 16:43 110 H 18 96 Nasal Cannula 2.5 04/19/24 16:35 84 L Nasal Cannula 0 04/19/24 16:23 36 C L 123 H 18 138/81 85 L Room Air Laboratory Results Short CBC 04/19/24 Range/Units 16:37 WBC 9.53 (4.8-10.8) K/ul Hgb 15.8 (12.0-16.0) g/dl Hct 48.4 H (37.0-47.0) % Plt Count 177 (130-400) K/uL BMP 04/19/24 16:37 Sodium 138 Potassium 3.9 Chloride 99 Carbon Dioxide 28 BUN 9 Creatinine 0.73 Glucose 153 H Calcium 9.1 Diagnostic Findings Chest X-Ray 04/19/24 16:35 XR chest 1V portable HISTORY: 68 years-old Female Chest pain, nonspecific COMPARISON: 01/25/2020 TECHNIQUE: AP view of the chest FINDINGS: Cardiac mediastinal silhouettes are within normal limits. No pneumothorax, pleural effusion or airspace consolidation. Mild chronic interstitial coarsening at the lung bases. Chronic appearing displaced proximal right humeral fracture. IMPRESSION: Mild chronic interstitial coarsening of lung bases without acute process of the chest. ACT 112: Negative or not required by law. The above report was generated using voice recognition software. It may contain grammatical, syntax or spelling errors. Electronically signed by: Jens Urbina M.D. 04/19/2024 4:48 PM Chest CTA 04/19/24 17:31 CT ANGIOGRAM OF THE CHEST CLINICAL HISTORY: Dyspnea. Fatigue. COMPARISON STUDY: Chest x-ray dated 04/19/2024. Chest CT dated 04/02/2018. TECHNIQUE: Following the IV administration of 116 cc of Optiray 320, CT angiogram of the chest was performed from the upper abdomen to the thoracic inlet utilizing the pulmonary embolus protocol. Images are reviewed in the axial, sagittal, and coronal planes. 3-D MIPS images are created and assessed. IV contrast was administered without complication. A dose lowering technique was utilized adhering to the principles of ALARA. CT DOSE: 750.4 mGy.cm FINDINGS: Thyroid: Imaged portions of the thyroid gland are normal in size and attenuation. Thoracic aorta: There is mild atherosclerotic calcification of the thoracic aorta, which is normal in caliber and demonstrates standard 3-vessel arch anatomy. No dissection is seen. Pulmonary vasculature: The pulmonary trunk is normal in caliber. There are no filling defects identified in main, lobar, or segmental pulmonary branches to suggest pulmonary embolus. Heart: The heart is normal in size and without pericardial effusion. There is coronary artery atherosclerosis. Lungs and pleural spaces: There is bibasilar scarring/atelectasis. Secretions are noted in the trachea. Diffuse peribronchial thickening is observed. There is patchy tree-in-bud consolidation within the lingula. Mild tree-in-bud opacities are also seen in the left lower lobe as well as at the left apex. Foci of mucous plugging are noted. No pleural effusion is identified. Mediastinum: There is no mediastinal lymphadenopathy. Jacqueline: Clear. Axillae: There is no axillary lymphadenopathy. Upper abdomen: There is severe hepatic steatosis. A small hiatal hernia is observed. Skeletal structures: The skeletal structures are osteopenic. No lytic or blastic bony lesions are seen. IMPRESSION: 1. There is no evidence of pulmonary embolus in the main, lobar, or segmental pulmonary arteries. 2. There is tree-in-bud/ground glass consolidation in the lingula, with add itional tree-in-bud opacities seen throughout the left lung. There is also diffuse peribronchial thickening with foci of mucus plugging. The appearance suggests an acute infectious/inflammatory bronchitis/pneumonitis. These findings may represent a chronic/atypical infectious process such as atypical mycobacterium. Clinical correlation will be required. Consider nonemergent follow-up with pulmonology. 3. No pleural effusion. 4. Coronary artery atherosclerosis. 5. Severe hepatic steatosis. 6. Additional findings as above. ACT 112: Negative or not required by law. Electronically signed by: Baldemar Ac M.D. 04/19/2024 7:04 PM Medications Administered Potassium Chloride/Sodium Chloride (Normal Saline W/20 Meq Kcl) 20 meq in 1,000 mls @ 100 mls/hr IV .Q10H ONE Stop: 04/20/24 05:38 Last Admin: 04/19/24 20:07 Dose: 100 mls/hr Documented By: [facility] Discontinued Medications Albuterol (Albut/Ipratrop 3mg/0.5mg Neb 3 Ml Vial) 3 ml NEB NOW STA; Protocol Stop: 04/19/24 16:36 Last Admin: 04/19/24 16:40 Dose: 3 ml Documented By: [facility] Albuterol (Albut/Ipratrop 3mg/0.5mg Neb 3 Ml Vial) 3 ml NEB NOW STA; Protocol Stop: 04/19/24 19:30 Last Admin: 04/19/24 20:02 Dose: 3 ml Documented By: [facility] Azithromycin (Azithromycin 250 Mg Tab) 500 mg PO NOW ONE Stop: 04/19/24 19:30 Last Admin: 04/19/24 20:00 Dose: 500 mg Documented By: [facility] Ceftriaxone Sodium (Rocephin) 2,000 mg in 50 mls @ 100 mls/hr IV NOW STA Stop: 04/19/24 19:58 Last Admin: 04/19/24 19:58 Dose: 100 mls/hr Documented By: [facility] Ioversol (Optiray 320 125ml) 116 ml IV ONCE ONE Stop: 04/19/24 18:10 Last Admin: 04/19/24 18:12 Dose: 116 ml Documented By: DANIA Prednisone (Prednisone 50 Mg Tab) 50 mg PO NOW STA Stop: 04/19/24 19:30 Last Admin: 04/19/24 19:59 Dose: 50 mg Documented By: [facility] Code Status & VTE Plan Code Status FULL CODE Supervising Physician Co-Signing Physician Notes IM ATTENDING : Patient seen and examined. History obtained from patient and records. Concur with salient points upon review of preceding documentation by Ms. Joselyn Hassan PA-C. I take responsibility for plan of care below. In addition patient noted to be tremulous at the ER. FINAL ASSESSMENT AND PLAN as follows : Acute hypoxemic respiratory failure secondary to COPD exacerbation secondary to atypical pneumonia No sepsis for now Situational hypertension Alcohol withdrawal Fatty liver disease as per records Anxiety disorder, patient anxious during exam. Prediabetes, outpatient hemoglobin A1c of 6.6 last January 2023, patient meets criteria for DM2 diagnosis Ongoing tobacco abuse Admit to medical telemetry Supplemental O2 Azithromycin, nebs RTC, prednisone course Pulmonology consult difficult improvement Clonidine 1 dose now for BP elevation CECILIA S, DT precautions Basal bolus insulin, ISS BG goal 1 10-1 40, carb count coverage, update hemoglobin A1c, DM education Nicotine patch as needed DVT prophylaxis. Lovenox subcu Full code Text document was generated using [employer] voice recognition software. It may contain grammatical or spelling errors. Kindly contact undersigned for clarification of any documentation item in question.
[2024-04-19] MEDS ORDERED: LORazepam 2 MG/1 ML VIAL IV PRN ×4 (20:47→21:00)
[2024-04-19] MEDS ORDERED: GABAPENTIN 1200MG ALCOHOL WITHDRAWAL LOAD PO STA (21:00)
[2024-04-19] MEDS ORDERED: Ativan IV Alcohol Withdrawal--Active Protocol IV PRN (21:00)
[2024-04-19] MEDS ORDERED: NON-FORMULARY MEDICATION (Multivitamin tablet) PO SCH (21:00)
[2024-04-19 21:09] LABS: Estimated Average Glucose 137 mg/dl; Hemoglobin A1C 6.4 % (4.5-5.6)
[2024-04-19] MEDS: MAGNESIUM SULFATE / D5W 1 GM/100 ML BAG IV SCH (21:11)
[2024-04-19] MEDS: GABAPENTIN 600 MG TAB PO ONE (21:19)
[2024-04-19] MEDS: THIAMINE HCL 100 MG in SYRINGE 9 ML IV STA (21:20)
[2024-04-19] MEDS: GABAPENTIN 600 MG TAB PO SCH (21:41)
[2024-04-19] MEDS: cloNIDine HCL 0.1 MG TAB PO ONE (21:47)
[2024-04-19] MEDS: FAMOTIDINE 20 MG TAB PO SCH (21:47)
[2024-04-19] MEDS: LANTUS PER UNIT CHARGE SQ SCH (21:48)
[2024-04-19] MEDS ORDERED: GLUCOSE 40% GEL 15 GM TUBE PO PRN (22:36)
[2024-04-19] MEDS ORDERED: CARBOHYDRATES FOR HYPOGLYCEMIA PO PRN (22:36)
[2024-04-19] MEDS ORDERED: DEXTROSE 50% 50 ML SYRINGE IV PRN (22:36)
[2024-04-19] MEDS ORDERED: GLUCAGON FOR INJ 1 MG VIAL SQ PRN (22:36)
[2024-04-19] MEDS ORDERED: GLUCOSE 10 TAB/TUBE PO PRN (22:36)
[2024-04-19] MEDS: LORazepam 0.5 MG TAB PO PRN (23:24)
[2024-04-19] MEDS: INSULIN ASPART PER UNIT CHARGE SC SCH (23:25)
[2024-04-20] MEDS: IPRATROPIUM BROMIDE NEB SOLN 0.02% 0.5MG/2.5ML VIAL INH SCH (01:29)
[2024-04-20] MEDS: LEVALBUTEROL 1.25 MG/3 ML NEB NEB SCH (01:29)
[2024-04-20] MEDS: GABAPENTIN 600 MG TAB PO SCH ×2 (02:57→17:41)
[2024-04-20 07:02] LABS: Basophils # (auto) 0.01 K/uL (0.00-0.20); Basophils % (auto) 0.1 %; Hematocrit (blood only) 40.8 % (37.0-47.0); Immature Granulocytes # (auto) 0.03 K/uL (0.01-0.20); Immature Granulocytes % (auto) 0.3 %; Lymphocytes # (auto) 0.65 K/uL (1.20-3.40); Lymphocytes % (auto) 7.1 %; Mean Corpuscular Hemoglobin 35.4 pg (25.0-34.0); Mean Corpuscular Hgb Conc 31.9 g/dL (32.0-36.0); Mean Corpuscular Volume 111.2 fL (80.0-100.0); Mean Platelet Volume 11.2 fL (9.4-12.4); Monocytes # (auto) 0.45 K/uL (0.11-0.59); Monocytes % (auto) 4.9 %; Neutrophils # (auto) 8.06 K/uL (1.40-6.50); Neutrophils % (auto) 87.6 %; Platelet Count 144 K/uL (130-400); RDW Coefficient of Variation 12.9 % (11.5-14.5); RDW Standard Deviation 53.4 fL (36.4-46.3); Red Blood Count 3.67 M/uL (4.20-5.40)
[2024-04-20 07:33] LABS: BUN Creatinine Ratio 18.3 (10-20); Calcium 8.4 mg/dl (8.6-10.3); Creatinine Clr Calc Pharmacy 87.1 ml/min; Magnesium 2.1 mg/dl (1.7-2.4); Potassium 4.4 mmol/L (3.5-5.1)
[2024-04-20 07:52] LABS: Macrocytosis Present
[2024-04-20] MEDS: AZITHROMYCIN 250 MG TAB PO SCH (08:41)
[2024-04-20] MEDS: ATORVASTATIN 20 MG TAB PO SCH (08:41)
[2024-04-20] MEDS: THIAMINE HCL 100 MG TAB PO SCH (08:41)
[2024-04-20] MEDS: DULoxetine HCL 30 MG CAP PO SCH (08:41)
[2024-04-20] MEDS: FOLIC ACID 1 MG TAB PO SCH (08:41)
[2024-04-20] MEDS: MULTIVITAMIN TAB PO SCH (08:41)
[2024-04-20] MEDS: PANTOprazole 40 MG TAB PO SCH (08:41)
[2024-04-20] MEDS: predniSONE 20 MG TAB PO SCH (08:41)
[2024-04-20] MEDS: FLUTICASONE/UMECLIDIN/VILANTER 100-62.5-25 INH SCH (08:43)
[2024-04-20] MEDS: ENOXAPARIN INJ 40 MG/0.4 ML SYR SQ SCH (08:44)
--- OUTSIDE RECORDS SUMMARY | 2024-04-20 08:51 | External Medical Summary | Summary of Care ---
Author Name Unknown Organization [facility] Address [address] [place] [address] Phone [phone] Care Team Providers Care Senior Electronics Technician Name Role Phone Ct Christy DO Primary Care Provider Reason for Visit * Reason Comments Medication Refill Encounter Details Date Type Department Care Team (Late st Contact Info) Description 04/04/2024 Refill Family Practice [address] [place] [address] [place] [address] [address] Christy DO [address] [place] [address] Colonic diverticular abscess; Liver abscess Allergies No known active allergiesdocumented as of this encounter (statuses as of 04/05/2024) Medications Medication Sig Dispensed Refills Start Date End Date Status DAILY VALUE MULTIVITAMIN PO TABS Take by mouth at bedtime. 1 Tab 0 11/25/2012 Active CALCIUM 500 MG PO TABS Take 600 mg by mouth at bedtime. 1 Tab 0 11/25/2012 Active folic acid 1 MG Tablet Take 1 Tablet by mouth in the morning. 30 Tab 11 04/16/2018 Active Vitamin D, Cholecalciferol, 1000 units CAPS Take 1 Capsule by mouth in the morning. \. 04/16/2018 Active magnesium chloride ER (MAG-64) 64 MG TBECIndications:H ospital discharge follow-up,Sepsis, due to unspecified organism,Alcohol use,Hypomagnesemi a Take 125 mg by mouth daily. DC from [facility] 04/16/2018 Active metroNIDAZOLE 1 % External Gel (Metrogel)Indicat ions:Perioral dermatitis Apply topically to affected area 2 times a day. To affected area. 30 g 5 10/09/2022 Active Famotidine 20 MG Oral Tablet (Pepcid) TAKE ONE TABLET BY MOUTH IN THE MORNING AND TAKE ONE TABLET BY MOUTH BEFORE BEDTIME 180 Tablet 1 06/17/2023 Active Additional Information Patient taking differently: Takes at bedtime only., Reported on 07/17/2023 Varenicline Tartrate 1 MG Oral TabletIndications :Tobacco abuse Take 1 Tablet by mouth in the morning and 1 Tablet before bedtime. As directed on box.. 60 Tablet 3 10/26/2023 Active Additional Information Patient not taking.Reported on 01/22/2024 DULoxetine HCl 30 MG Oral Capsule Delayed Release Particles (Cymbalta)Indicat ions:Major depressive disorder, recurrent episode, moderate (HCC),Paresthesia s Take 1 Capsule by mouth in the morning do not cut, crush or chew. 100 Capsule 1 11/07/2023 Active Thiamine HCl 100 MG Oral Tablet (vitamin B-1) Take 1 Tablet by mouth in the morning. 90 Tablet 1 11/06/2023 Active LORazepam 1 MG Oral Tablet (Ativan)Indicatio ns:Generalized anxiety disorder Take 1/2 to 1 tablet three times a day as needed 60 Tablet 12/29/2023 Active Albuterol Sulfate HFA 108 (90 Base) MCG/ACT Inhalation Aerosol SolutionIndicatio ns:Wheezing,Tobac co use disorder INHALE 2 PUFFS EVERY 4 HOURS NEEDED FOR WHEEZING. 18 g 2 01/21/2024 Active Fluticasone-Umecl idin-Vilant 100-62.5-25 MCG/ACT Aerosol Powder Breath Activated (Trelegy Ellipta) Inhale 1 Puff by mouth in the morning. 180 Each 3 02/05/2024 Active Gabapentin 600 MG Oral Tablet (Neurontin)Indica tions:Paresthesia s Take 1 Tablet by mouth in the morning and 1 Tablet before bedtime. 200 Tablet 1 02/15/2024 Active Atorvastatin Calcium 20 MG Oral Tablet (Lipitor)Indicati ons:Dyslipidemia, goal LDL below 100 Take 1 Tablet by mouth in the morning. 100 Tablet 03/20/2024 Active Pantoprazole Sodium 20 MG Oral Tablet Delayed Release (Protonix)Indicat ions:Colonic diverticular abscess,Liver abscess TAKE ONE TABLET BY MOUTH IN THE MORNING 30 MINUTES BEFORE THE FIRST MEAL OF THE DAY . DO NOT CUT,CRUSH OR CHEW 90 Tablet 1 04/05/2024 Active Pantoprazole Sodium 20 MG Oral Tablet Delayed Release (Protonix)Indicat ions:Colonic diverticular abscess,Liver abscess TAKE ONE TABLET BY MOUTH IN THE MORNING 30 MINUTES BEFORE THE FIRST MEAL OF THE DAY . 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 Alcohol dependence, uncomplicated 10/29/2022 Gastro-esophageal reflux disease without esophag itis 01/17/2022 COPD, group C, by GOLD 2017 classification 12/20 Prediabetes 02/20/2020 Overview: Per Prediabetes protocol Diverticulitis of sigmoid colon 01/26/2020 Alcoholic cirrhosis of liver without ascites 10/2018 Biliary disease 09/13/[address] 11/20/2015 Hypokalemia 11/20/2015 Hypomagnesemia 11/20/2015 Restrictive lung disease 11/11/2015 Overview: PFT Alcohol use 08/28/2015 MEDICATION USE AGREEMENT 08/28/2015 Overview: redo 08/28/15 Overweight (BMI 25.0-29.9) 06/17/2013 Overview: bmi= 25.86 06/17/13 Tobacco use 05/03/2012 Major depressive disorder, recurrent episode, mo derate 08/01/2011 Generalized anxiety disorder 08/01/2011 Dyslipidemia, goal LDL below 100 HTN, goal below 140/90 documented as of this encounter (statuses as of 04/05/2024) Resolved Problems Problem Noted Date Diagnosed Date Resolved Date Portal vein thrombosis 04/16/201809/14 Hematuria 04/02/2018 01/17/2022 Spasm of lumbar paraspinous muscle 07/16/2017 01/17/2022 Bilateral sacroiliitis 07/16/201708/01 Acute respiratory failure with hypoxia 11/20/2015 01/17/2022 Fatty liver 08/28/2015 11/20/2015 Screen for colon cancer 08/28/2015 07/0 02/2022 Need for shingles vaccine 06/17/2013 Neck swelling 11/25/2012 08/28/2015 Overweight (BMI 25.0-29.9) 05/03/2012 0 12/11/2016 Overview: bmi= 28.48 05/03/12 Gastroesophageal reflux 05/03/201208/13 Abnormal results of liver function studies 05/03/2012 08/28/2015 Colon cancer screening 05/03/201208/28 Screening for colon cancer 10/03/2011 1 08/18/2012 Other screening mammogram 10/03/2011 Overweight (BMI 25.0-29.9) 08/01/2011 0 12/11/2016 Overview: BMI= 27.88 08/01/11 Need for pneumococcal vaccination 08/01/2011 08/28/2015 Need for influenza vaccination 08/01/2011 08/28/2015 Overweight (BMI 25.0-29.9) 08/01/2011 0 12/11/2016 Overview: BMI= 27.88 08/01/11 Other acute reactions to stress 08/01/2011 08/28/2015 Esophageal reflux 08/01/2011 08/28/2015 Dyslipidemia, goal LDL below 100 08/01/2011 08/28/2015 Bilateral dry eyes 08/01/2011 6 HTN, goal below 140/90 08/01/201103/04 Overview: Per HTN Protocol #27. MEDICATION USE AGREEMENT 08/01/2011 Overview: 08/01/11 Diabetes mellitus screening 07/16/2011 08/28/2015 OVERWEIGHT, BMI= 37.62 08/23/10 08/23/2010 02/06/2020 Overview: history Other screening mammogram 08/23/2010 Palpitations 08/23/2010 08/28/2015 Possible alcohol use disorde r on screening for alcoholism 02/20/2010 08/28/2015 HTN, goal below 130/80 02/20/201008/23 ANXIETY STATE NOS 02/20/2010 08/28/2015 Tobacco use disorder 06/29/2009 012 Esophageal reflux 06/29/2009 08/28/2015 Chronic diarrhea 06/14/2008 06/29/2009 Abnormal results of liver function studies 01/18/2008 05/03/2012 Dyslipidemia, goal to be determined 10/18/2007 06/29/2009 Malaise and fatigue 10/12/2007 08/28/19 16 Diarrhea 10/12/2007 08/28/2015 SLEEP HYPERSOMNIA 10/12/2007 08/28/2015 Elevated blood pressure, situational 10/12/2007 08/23/2010 Routine medical exam 10/12/2007 016 OBSTIPATION 10/12/2007 08/28/2015 Major depressive disorder 04/16/2004 Overview: ICD-10 update of inactive term Anxiety states 04/16/2004 02/20/2010 Overview: ICD-10 update of inactive term Liver abscess 01/30/2020 Overview: FATTY LIVER documented as of this encounter (statuses as of 04/05/2024) Immunizations Name Administration Dates Next Due COVID-19 mRNA, LNP-s, No Pre serve, 2-Dose Series (CloudDock) 01/01/2022,07/12/2021,08/25/2020,07/14 COVID-19, MRNA-LNP, 23-24, P F, 30 MCG/0.3 mL, 12 YRS AND ABOVE, IM (PFIZER-Comirnaty) 07/17/2023 Covid-19, Mrna, Lnp-s, Pf, B ivalent, 30 Mcg, IM, 12 yrs and above (Pfizer) 01/08/2023,06/25/2022 H1N1 2009 Influenza, IM 06/29/2009 Pneumococcal Conjugate Vacc, 13 Valent (Prevnar) 08/10/2018 Pneumococcal Polysaccharide PPV23 (Pneumovax) 01/17/2022,08/01/2011 RSV Vac., Bivalent, Perfusio n F, Pf,0.5 Ml (Abrysvo) 11/06/2023 Season Influenza, Quad, PF, Adjuvanted, 65+ Yrs, IM (FLUAD) 04/20/2020 Seasonal Influenza, PF, 6 M & above, IM , (FluLaval or Fluzone) 04/16/2018,05/19/2017 05/19/2018 Seasonal Influenza, Quadriva lent Hd (Fluzone Hd) 04/10/2023,04/16/2022,06/14/2021 Seasonal Influenza, Quadriva lent, No Preserve, IM 08/28/2015 Seasonal Influenza, Trivalen t, (IIV3), with Preserv, (Fluzone) 05/03/2012,08/01/2011,08/23/2010,06/12,05/17/2008 TDAP (age 10 and older)(Boostrix) 06/14/2021 TDAP, Age 7 and older, IM (Adacel) 09/04/2009 Varicella Zoster Vaccine (Adult) 01/06/2016 Zoster Vaccine Recombinant (Shingrix) 01/17/2022 ,08/02/2021 documented as of this encounter Social History Tobacco Use Types Packs/Day Years Used Date Smoking Tobacco: Every Day Cigarettes 0.5 50.4 Started: [birth year]/10/1972; Last attempted to quit: 12/10/2022 Passive Smoke Exposure: Past Smokeless Tobacco: Never Alcohol Use Standard Drinks/Week Comments Not Currently 0 (1 standard drink = 0.6 oz pure alcohol) 2 vodka drinks every other day AUDIT-C Answer Date Recorded Frequency of Alcohol Consumption Never 09/13/2018 Average Number of Drinks Not on file 019 Frequency of Binge Drinking Not on file 10/2018 PHQ-2 Answer Date Recorded PHQ Adult Total Score 0 07/17/2023 Hunger Vital Sign Answer Date Recorded Within the past 12 months, y ou worried that your food would run out before you got the money to buy more. Never true 07/17/19 24 Within the past 12 months, t he food you bought just didn't last and you didn't have money to get more. Never true 07/17/2023 Childcare Answer Date Recorded Do you feel overwhelmed with taking care of a child, family member or friend? No 07/17/2023 Does your family need help f inding childcare? (Household - for ages 0-17 years) Not on file 07/17/2023 Clothing Answer Date Recorded Have you been unable to get clothing when it was really needed? No 07/17/2023 Is your family able to get c lothes or diapers when needed? (Household - for ages 0-17 years) Not on file 07/17/2023 Personal Safety Answer Date Recorded Do you feel unsafe or have concerns for your saf ety? No 07/17/2023 Do you have concerns for you r family's safety? (Household - for ages 0-17 years) Not on file 07/17/2023 Utilities Answer Date Recorded Do you have trouble paying y our heating, water, or electric bill? No 07/17/2023 Is your family able to pay t he heat, water, or electric bill? (Household - for ages 0-17 years) Not on file 07/17/2023 Does your family have access to good internet? (Household - for ages 0-17 years) Not on file 07/17/2023 Employment Status Answer Date Recorded Are you unemployed or without regular income? No 07/17/2023 Does the household have a re gular source of income? (Household - for ages 0-17 years) Not on file 07/17/2023 Social Connections Answer Date Recorded How often do you feel lonely or isolated from those around you? Sometimes 07/17/2023 Financial Resource Strain Answer Date R ecorded Do you have any trouble payi ng for your medications, or do you think you might in the future? No 07/17/2023 Does your family have troubl e paying for medicine? (Household - for ages 0-17 years) Not on file 07/17/2023 Transportation Needs Answer Date Record ed READ ONLY Do you have troubl e getting a ride to medical visits or work? Never True 07/17/2023 Does your family have a hard time getting a ride to doctors visits? (Household - for ages 0-17 years) Not on file 07/17/2023 Has lack of transportation k ept you from medical appointments, meetings, work, or from getting things needed for daily living? Check all that apply. (Adult - for ages 18 years and over) Not on file 07/17/2023 Do you (or your family) have trouble finding or paying for a ride (transportation)? (Household - for ages 0-17 years) Not on file 07/17/2023 Housing Stability Answer Date Recorded Do you currently live in a s helter or have no steady place to sleep at night? No 07/17/2023 READ ONLY Do you think you a re at risk of becoming homeless? No 07/17/2023 Does your family worry about paying for your home or becoming homeless? (Household - for ages 0-17 years) Not on file 0 07/17/2023 Are you homeless or worried that you might be in the future? (Adult - for ages 18 years and over) Not on file Are you (or your family) keshawn eless or worried that you might be in the future? (Household - for ages 0-17 years) Not on file Food Insecurity Answer Date Recorded Do you need food for this week? No 07/17/2023 Are you able to get enough f ood for your family? (Household - for ages 0-17 years) Not on file 07/17/2023 Does your family need food t his week? (Household - for ages 0-17 years) Not on file 07/17/2023 Do you always have enough fo od for your family? (Household - for ages 0-17 years) Not on file 07/17/2023 Sex and Gender Information Value Date Recorded Sex Assigned at Female 01/17/2022 1:11 PM EDT Gender Identity Female 01/17/2022 1:11 PM EDT Sexual Orientation Straight 01/17/2022 1: 11 PM EDT Job Start Date Occupation Industry Not on file Not on file Not on file documented as of this encounter Functional Status Functional Status Response Date of Assess ment Are you deaf or do you have serious difficulty h earing? No 01/14/2023 Are you blind or do you have serious difficulty seeing, even when wearing glasses? No 01/14/2023 Do you have serious difficul ty walking or climbing stairs? (5 years old or older) No 01/14/2023 Do you have difficulty dress ing or bathing? (5 years old or older) No 01/14/2023 Because of a physical, menta l, or emotional condition, do you have difficulty doing errands alone such as visiting a doctor s office or shopping? (15 years old or older) No 01/15/20 23 Cognitive Status Response Date of Assessm ent Because of a physical, menta l, or emotional condition, do you have serious difficulty concentrating, remembering, or making decisions? (5 years old or older) No 01/14/2023 documented as of this encounter Miscellaneous Notes * Telephone Encounter - Katey Najera [facility] - 04/05/2024 7:27 AM EDTSigned Prescriptions: Disp Refills Pantoprazole Sodium 20 MG Oral Tablet Syl*90 Tab*1 Sig: TAKE ONE TABLET BY MOUTH IN THE MORNING 30 MINUTES BEFORE THE FIRST MEAL OF THE DAY . DO NOT CUT,CRUSH OR CHEWAuthorizing Provider: CT CHRISTY User: KATEY NAJERA documented in this encounter Plan of Treatment Upcoming Encounters Date Type Department Care Team (Late st Contact Info) Description 04/19/2024 2:00 PM EDT Office Visit Orthopaedics [facility] [address] [address] Brunilda Valerio PA-C [address] [address] 05/03/2024 1:00 PM EDT Office Visit Family Practice [address] [place] [address] [address] [place] [phone] [address] Christy DO [address] [place] [address] 06/24/2024 10:00 AM EST Office Visit [facility] [address] [place] [address] Paloma Vidales MD [address] [place] [id number] 07/14/2024 10:30 AM EST Office Visit [facility] [address] [place] [address] Paloma Vidales MD [address] [place] [address] 07/19/2024 11:40 AM EST Office Visit [address] [address] Mellissa Blanco PA-[address] [place] [address] 07/26/2024 10:00 AM EST Office Visit [address] [address] Paloma Vidales MD [address] [place] [phone] Scheduled Procedures Name Priority Associated Diagnoses Date/Ti me COLONOSCOPY FLEXIBLE PROXIMA L DIAGNOSTIC Recall Encounter for screening colonoscopy Health Maintenance Due Date Last Done Comments DISCUSS TOBACCO CESSATION (REFER TO SMARTSET #0310) 1955 Cologuard 1998 Fecal Occult Blood Test 1998 Sigmoidoscopy 1998 Hepatitis B Vaccine (1 of 3 - Risk 3-dose series) 2013 Adult Wellness Visit 2019 *ADVANCE DIRECTIVE NOT ON FILE 01/20/2022 Mammogram 01/01/2024 12/31/2022, 12/12, 10/18/2021, Additional history exists HbA1c 01/16/2024 01/15/2023, 08/13, 06/14/2021, Additional history exists GFR 01/26/2024 01/25/2023, 01/10, 01/23/2023, Additional history exists COVID-19 Vaccine ( season) 2024 07/17/2023, 01/08/2023, 06/25/2022, Additional history exists Influenza Vaccine (FLU shot) (#1) 2024 04/10/2023, 04/16/2022, 06/14/2021, Additional history exists Depression Monitoring 07/17/2024 07/17/2023 O2 ASSESSMENT COMPLETED IN PAST YEAR FOR COPD 11/17/2024 11/18/2023 Albumin/Creatinine Ratio 01/17/2025 01/17/2022, 08/13 DXA Scan 11/19/2025 11/19/2018 Colonoscopy 12/20/2025 12/21/2015, 12/11, 11/15/2015, Additional history exists Colorectal Cancer Screening 12/20/2025 Lipid Panel 06/14/2026 06/14/2021, 06/0 07/2016, 08/28/2015, Additional history exists DTap/Tdap Vaccines (3 - Td or Tdap) 06/14/2031 06/14/2021, 09/04/2009 Lung Cancer Screening Completed 11/15/2015 Alpha-1 Antitrypsin Completed 12/25/2021 Pneumococcal Vaccine: 65+ Years Completed 01/17/2022, 08/10/2018, 08/01/2011 Zoster Vaccines Completed 01/17/2022, 07/14, 01/06/2016 HPV (Gardasil) Vaccine Aged Out No lo nger eligible based on patient's age to complete this topic MENINGOCOCCAL (MENACTRA/MENVEO) Aged Out No longer eligible based on patient's age to complete this topic documented as of this encounter Medical Devices Not on filedocumented as of this encounter Visit Diagnoses Diagnosis Colonic diverticular abscess Abscess of intestine Liver abscess Abscess of liver documented in this encounter Advance Directives Documents on File Type Date Recorded 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 Question Answer Comments Discussion of Advance Directives occurred with: Patient Does the patient have a Living Will? No Does the patient have Health Care Power of Attor siobhan? No * Full Code Date Activated Date Inactivated Comments 01/26/2020 9:51 PM 01/30/2020 11:50 PM This order reflects the patients wishes and were consensually agreed upon. Question Answer Comments Discussion of Advance Directives occurred with: Patient * Full Code Date Activated Date Inactivated Comments 01/26/2020 9:21 PM 01/26/2020 9:51 PM This order r eflects the patients wishes and were consensually agreed upon. Question Answer Comments Discussion of Advance Directives occurred with: Not Discussed Healthcare Agents on File Name Relationship Healthcare Agent [facility] p Communication Porter Gregory Adult Child Health Care Agen t (per Health Care Power of Assistant Tennis Professional document) Care Teams Senior Electronics Technician Relationship Specialty Start Date End Date Ct Christy DO [address] [place] [address], [place] [address] PCP - General Family Medicine 12/31/23 documented as of this encounter
--- OUTSIDE RECORDS SUMMARY | 2024-04-20 08:51 | External Medical Summary | Summary of Care ---
Author Name Unknown Organization [facility] Address [address] [place] [address] Phone [phone] Care Team Providers Care Carbider Name Role Phone Andrew Ctravi Ramsey DO Primary Care Provider Reason for Referral * Evaluate & Treat - Unlimited Visits (Within 30 days (routine)) - Authorized Specialty Diagnoses / Procedures Referred By Mark kaufman Referred To Contact Dermatology Diagnoses BCC (basal cell carcinoma), face Deepak Miller MD [address] [facility] [place] [address] Referral ID Status Reason Start Date Expiration Date Visits Requested Visits Authorized [id number] Authorized Specialty Services Required 01/22/2024 1 1 Question Answer Referral Priority Within 30 days (routine) Are you referring the patient for Mohs Surgery and have a current positive skin cancer biopsy result? Yes Where should this appointment be scheduled? [facility] Type of Procedure MOHS Surgery Comments For mohs x3 Skin, Midnasal dorsum, shave: Basal cell carcinoma Skin, Right cheek, shave: Basal cell carcinoma Skin, Right jain, shave: Basal cell carcinoma Encounter Details Date Type Department Care Team (Late st Contact Info) Description 01/22/2024 Telephone Dermatology State Stefany Dow [address] [place] [address] Deepak Miller MD [address] [facility] [place] [address] Allergies No known active allergiesdocumented as of this encounter (statuses as of 02/09/2024) Medications Medication Sig Dispensed Refills Start Date [...] 125 mg by mouth daily. DC from [facility] 04/16/2018 Active metroNIDAZOLE 1 % External Gel (Metrogel)Indicat ions:Perioral dermatitis Apply topically to affected area 2 times a day. To affected area. 30 g 5 10/09/2022 Active Atorvastatin Calcium 20 MG Oral Tablet (Lipitor)Indicati ons:Dyslipidemia, goal LDL below 100 Take 1 Tablet by mouth in the morning. 100 Tablet 3 02/02/2023 Active Famotidine 20 MG Oral Tablet (Pepcid) TAKE ONE TABLET BY MOUTH IN THE MORNING AND TAKE ONE TABLET BY MOUTH BEFORE BEDTIME 180 Tablet 1 06/17/2023 Active Additional Information Patient taking differently: Takes at bedtime only., Reported on 07/17/2023 Gabapentin 600 MG Oral Tablet (Neurontin)Indica tions:Paresthesia s Take 1 Tablet by mouth in the morning and 1 Tablet before bedtime. 200 Tablet 1 07/17/2023 Active Varenicline Tartrate 1 MG Oral TabletIndications :Tobacco [...] day as needed 60 Tablet 12/29/2023 Active Pantoprazole Sodium 20 MG Oral Tablet Delayed Release (Protonix)Indicat ions:Colonic diverticular abscess,Liver abscess TAKE ONE TABLET BY MOUTH IN THE MORNING 30 MINUTES BEFORE THE FIRST MEAL OF THE DAY . DO NOT CUT,CRUSH OR CHEW 90 Tablet 01/11/2024 Active Albuterol Sulfate HFA 108 (90 Base) MCG/ACT Inhalation Aerosol SolutionIndicatio ns:Wheezing,Tobac co use disorder INHALE 2 PUFFS EVERY 4 HOURS NEEDED FOR WHEEZING. 18 g 2 01/21/2024 Active Fluticasone-Umecl idin-Vilant 100-62.5-25 MCG/ACT Aerosol Powder Breath Activated (Trelegy Ellipta) INHALE ONE PUFF BY MOUTH EVERY MORNING 180 Each 3 12/04/2022 4 Discontinue d(Refill) documented as of this encounter (statuses as of 02/09/2024) Active Problems Problem Noted Date Diagnosed Date [...] as of this encounter (statuses as of 02/09/2024) Resolved Problems Problem Noted Date Diagnosed Date [...] as of this encounter (statuses as of 02/09/2024) Immunizations Name Administration Dates Next Due COVID-19 mRNA, LNP-s, No Pre serve, 2-Dose Series (Pfizer) 01/01/2022,07/12/2021,08/25/2020,07/14 COVID-19, MRNA-LNP, 23-24, P F, 30 MCG/0.3 mL, 12 YRS AND ABOVE, IM (PFIZER-Comirnat) 07/17/2023 Covid-19, Mrna, Lnp-s, Pf, B ivalent, [...] lent, No Preserve, IM 08/28/2015 Seasonal Influenza, Split, I IV3, With Preserve, Inj 05/03/2012,08/01/2011,08/23/2010,06/12,05/17/2008 TDAP (age 10 and older)(Boostrix) 06/14/2021 TDAP, Age 7 and older, IM (Adacel) 09/04/2009 Varicella Zoster Vaccine (Adult) 01/06/2016 Zoster Vaccine Recombinant (Shingrix) 01/17/2022 ,08/02/2021 documented as of this encounter Social History Tobacco Use Types Packs/Day Years Used Date Smoking Tobacco: Every Day Cigarettes 0.5 50.3 Started: 12/10/1972; Last attempted to quit: 12/10/2022 [...] (15 years old or older) No 01/15/20 Cognitive Status Response Date of Assessm ent Because of a physical, menta l, or emotional condition, do you have serious difficulty concentrating, remembering, or making decisions? (5 years old or older) No 01/14/2023 documented as of this encounter Miscellaneous Notes * Telephone Encounter - Sylvia Spangler OSA - 02/09/2024 10:22 AM EDT Called pt and left another message to schedule MOHS surgeries * Telephone Encounter - Sylvia Spangler OSA - 02/04/2024 10:39 AM EDT Called and left message for pt. Needs to schedule 3 MOHS appts documented in this encounter Plan of Treatment Upcoming Encounters Date Type Department Care Team (Late st Contact Info) Description 03/01/2024 2:00 PM EDT Office Visit Orthopaedics [facility] [address] [place] [address] Brunilda Valerio PA-C [address] [place] [address] 04/05/2024 2:00 PM EDT Office Visit Hepatology, [facility] [address] [facility] [place] [address] Ashley Cheema MD [address] [place] [address] 05/03/2024 1:00 PM EDT Office Visit Family Practice [address] [place] [address] [facility] [place] [address] [address] Morales DO [address] [place] [address] 07/19/2024 11:40 AM EST Office Visit Dermatology[address] [address] Mellissa Blanco PA-C [address] [place] [address] [place] [address] Scheduled Procedures Name Priority Associated Diagnoses Date/Ti me COLONOSCOPY FLEXIBLE PROXIMA L DIAGNOSTIC Recall Encounter for screening colonoscopy Scheduled Referrals Name Type Priority Associated Diagnoses Orde r Schedule MOHS SURGERY REFERRAL OP Referral Within 30 days (routine) BCC (basal cell carcinoma), face Ordered: 01/22/2024 Health Maintenance Due Date Last Done Comments DISCUSS TOBACCO CESSATION (REFER TO SMARTSET #[id number]) 1953 Cologuard 1998 Fecal Occult Blood Test 1998 Sigmoidoscopy 1998 Hepatitis B Vaccine (1 of 3 - Risk 3-dose series) 2013 *ADVANCE DIRECTIVE NOT ON FILE 01/20/2022 COVID-19 Vaccine ( season) 2023 07/17/2023, 01/08/2023, 06/25/2022, Additional history exists Mammogram 01/01/2024 12/31/2022, 12/12, 10/18/2021, Additional history exists HbA1c 01/16/2024 01/15/2023, 08/13, 06/14/2021, Additional history exists *COPD SEVERITY VERIFIED BY PFT 01/24/2024 *CXR OR CT FOR COPD EVER 01/24/2024 GFR 01/26/2024 01/25/2023, 01/10, 01/23/2023, Additional history exists Influenza Vaccine (FLU shot) (#1) 2024 04/10/2023, 04/16/2022, 06/14/2021, Additional history exists Depression Monitoring 07/17/2024 07/17/2023 O2 ASSESSMENT COMPLETED IN PAST YEAR FOR COPD 11/17/2024 11/18/2023 Albumin/Creatinine Ratio 01/17/2025 01/17/2022, 08/13 DXA Scan 11/19/2025 11/19/2018 Colonoscopy 12/20/2025 12/21/2015, 12/11, 11/15/2015, Additional history exists Colorectal Cancer Screening 12/20/2025 Lipid Panel 06/14/2026 06/14/2021, 06/0 07/2016, 08/28/2015, Additional history exists DTaP,Tdap,and Td Vaccines (3 - Td or Tdap) 06/14/2031 06/14/2021, 09/04/2009 Lung Cancer Screening Completed 11/15/2015 Alpha-1 Antitrypsin Completed 12/25/2021 Pneumococcal Vaccine: 65+ Years Completed 01/17/2022, 08/10/2018, 08/01/2011 Zoster Vaccines Completed 01/17/2022, 07/14, 01/06/2016 *BASELINE EKG FOR HTN Completed 12/31/2022 , 11/08/2021, 01/30/2020, Additional history exists Hepatitis C Screening Completed 01/30/2023 , 04/03/2018, 02/20/2010, Additional history exists HPV (Gardasil) Vaccine Aged Out No lo nger eligible based on patient's age to complete this topic MENINGOCOCCAL (MENACTRA/MENVEO) Aged Out No longer eligible based on patient's age to complete this topic documented as of this encounter Medical Devices Not on filedocumented as of this encounter Visit Diagnoses Diagnosis BCC (basal cell carcinoma), face- Primary Basal cell carcinoma of skin of other and unspecified parts of face documented in this encounter Advance Directives Documents on File Type Date 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
--- OUTSIDE RECORDS SUMMARY | 2024-04-20 08:51 | External Medical Summary | Summary of Care ---
Author Name Unknown Organization [facility] Address [address] [place] [address] Phone [phone] Care Team Providers Care Service Sprinkler Helper Name Role Phone Ct Morales DO Primary Care Provider Reason for Referral * Evaluate & Treat - Unlimited Visits (Within 10 days (routine)) - Authorized Specialty Diagnoses / Procedures Referred By Mark kaufman Referred To Contact Physical Therapy / Physical Medicine And Rehab Diagnoses Other closed nondisplaced fracture of proximal end of right humerus, initial encounter Brunilda Valerio PA-C [address] [place] [address] Referral ID Status Reason Start Date Expiration Date Visits Requested Visits Authorized [id number] Authorized Specialty Services Required 03/08/[phone] Question Answer Referral Priority Within 10 days (routine) Where should this appointment be scheduled? External Comments Healing proximal humerus fracture, nearly 3 months removed from injury Begin progressing with full passive range of motion and progress to active range of motion. At this time may begin partial weight-bearing and progress to full weight-bearing as tolerated. Reason for Visit * Reason Comments Follow Up Pt is here for a fol low up R shoulder w off and on pain with movement. Encounter Details Date Type Department Care Team (Late st Contact Info) Description 03/08/2024 1:35 PM EDT Office Visit Orthopaedics [facility] [address] [facility] [place] [address] Brunilda Valerio PA-C [address] [place] [address] Other closed nondisplaced fracture of proximal end of right humerus, sequela* Allergies No known active allergiesdocumented as of this encounter (statuses as of 03/08/2024) Medications Medication Sig Dispensed Refills Start Date [...] Active magnesium chloride ER (MAG-64) 64 MG TBECIndications:Ho spital discharge follow-up,Sepsis, due to unspecified organism,Alcohol use,Hypomagnesemia Take 125 mg by mouth daily. DC from [facility] 04/16/2018 Active metroNIDAZOLE 1 % External Gel (Metrogel)Indicati ons:Perioral dermatitis Apply topically to affected area 2 times a day. To affected area. 30 g 5 10/09/2022 Active Atorvastatin Calcium 20 MG Oral Tablet (Lipitor)Indicatio ns:Dyslipidemia, goal LDL below 100 Take 1 Tablet by mouth in the morning. 100 Tablet 3 02/02/2023 Active Famotidine 20 MG Oral Tablet (Pepcid) TAKE ONE TABLET BY MOUTH IN THE MORNING AND TAKE ONE TABLET BY MOUTH BEFORE BEDTIME 180 Tablet 1 06/17/2023 06/16/2024 Active Additional Information Patient taking differently: Takes at bedtime only., Reported on 07/17/2023 Varenicline Tartrate 1 MG Oral TabletIndications: Tobacco abuse Take 1 Tablet by mouth in the morning and 1 Tablet before bedtime. As directed on box.. 60 Tablet 3 10/26/2023 Active Additional Information Patient not taking.Reported on 01/22/2024 DULoxetine HCl 30 MG Oral Capsule Delayed Release Particles (Cymbalta)Indicati ons:Major depressive disorder, recurrent episode, moderate (HCC),Paresthesias Take 1 Capsule by mouth in the morning do not cut, crush or chew. 100 Capsule 1 11/07/2023 Active Thiamine HCl 100 MG Oral Tablet (vitamin B-1) Take 1 Tablet by mouth in the morning. 90 Tablet 1 11/06/2023 Active LORazepam 1 MG Oral Tablet (Ativan)Indication s:Generalized anxiety disorder Take 1/2 to 1 tablet three times a day as needed 60 Tablet 12/29/2023 Active Pantoprazole Sodium 20 MG Oral Tablet Delayed Release (Protonix)Indicati ons:Colonic diverticular abscess,Liver abscess TAKE ONE TABLET BY MOUTH IN THE MORNING 30 MINUTES BEFORE THE FIRST MEAL OF THE DAY . DO NOT CUT,CRUSH OR CHEW 90 Tablet 01/11/2024 Active Albuterol Sulfate HFA 108 (90 Base) MCG/ACT Inhalation Aerosol SolutionIndication s:Wheezing,Tobacco use disorder INHALE 2 PUFFS EVERY 4 HOURS NEEDED FOR WHEEZING. 18 g 2 01/21/2024 Active Fluticasone-Umecli din-Vilant 100-62.5-25 MCG/ACT Aerosol Powder Breath Activated (Trelegy Ellipta) Inhale 1 Puff by mouth in the morning. 180 Each 3 02/05/2024 Active Gabapentin 600 MG Oral Tablet (Neurontin)Indicat ions:Paresthesias Take 1 Tablet by mouth in the morning and 1 Tablet before bedtime. 200 Tablet 1 02/15/2024 Active documented as of this encounter (statuses as of 03/08/2024) Active Problems Problem Noted Date Diagnosed Date [...] as of this encounter (statuses as of 03/08/2024) Resolved Problems Problem Noted Date Diagnosed Date [...] as of this encounter (statuses as of 03/08/2024) Immunizations Name Administration Dates Next Due COVID-19 mRNA, LNP-s, No Pre serve, 2-Dose Series (Pfizer) 01/01/2022,07/12/2021,08/25/2020,07/14 COVID-19, MRNA-LNP, 23-24, P F, 30 MCG/0.3 mL, 12 YRS AND ABOVE, IM ([employer]-ComirnatBreak30) 07/17/2023 Covid-19, Mrna, Lnp-s, Pf, B ivalent, [...] No 01/14/2023 documented as of this encounter Progress Notes * Savage Bush DO - 03/08/2024 3:46 PM EDT I have reviewed the advanced practitioner's documentation on the date of service referenced in note, and I agree with, and take responsibility for the plan of care. * Brunilda Valerio PA-C - 03/08/2024 1:35 PM EDT Patient Name: Malika Gregory CHIEF COMPLAINT: No chief complaint on file. HISTORY OF PRESENT ILLNESS: Malika Gregory is a 68 year old female who presents to clinic today for right proximal humerus fracture follow up. Patient presents today unaccompanied. She reports date of injury was 12/23/2023 when she tripped on a pair of jeans on her way to the bathroom in her home. Patient reports very minimal pain through her shoulder today. She was placed in a patient has continued to be nonweightbearing through her right upper extremity but has began physical therapy to work on passive range of motion below shoulder height. She states she has been progressing with PT. She states she has been actively moving her shoulder in her home. We will obtain new x-rays of the shoulder today. Patient smokes about 1/2 pack of cigarettes per day. There are no exam notes on file for this visit. Past Surgical History: Procedure Laterality Date BREAST BIOPSY Right unknown date; benign DELIVERY x 3 COLONOSCOPY, DIAGNOSTIC (RECTUM) 12/21/2015 diverticulosis, lipoma, repeat 10 yrs/COLONOSCOPY FLEXIBLE PROXIMAL DIAGNOSTIC performed by Jelly Jean Baptiste MD at [facility] COLONOSCOPY, DIAGNOSTIC (RECTUM) 11/15/2015 COLONOSCOPY FLEXIBLE PROXIMAL DIAGNOSTIC performed by Jaime Jean Baptiste MD at [facility] COLORECTAL CANCER SCREEN; COLON 2001 colonoscopy- 8 yrs CONIZATION OF CERVIX 01/[address]ero DENTAL SURGERY PROCEDURE NEC age 18 wisdom teeth x 4 EGD, FLEXIBLE, DIAGNOSTIC 12/21/2015 normal bx, HH/ESOPHAGOGASTRODUODENOSCOPY (EGD), FLEXIBLE, TRANSORAL, DIAGNOSTIC performed by Jaime Jean Baptiste MD at ENDOSCOPY [facility] EGD, FLEXIBLE, DIAGNOSTIC 05/27/2018 hiatal hernia/ESOPHAGOGASTRODUODENOSCOPY (EGD), FLEXIBLE, TRANSORAL, DIAGNOSTIC performed by Jaime Jean Baptiste MD at [facility] EGD, FLEXIBLE, DIAGNOSTIC N/A 01/20/2023 LA grade C reflux esophagitis/hiatal hernia/focal edema GEJ/ESOPHAGOGASTRODUODENOSCOPY (EGD), FLEXIBLE, TRANSORAL, DIAGNOSTIC performed by Barb Dunn MD at ENDOSCOPY [facility] EGD, FLEXIBLE, DIAGNOSTIC N/A 01/23/2023 submucosal nodule with small ulcer/biopsies show inflammation compatible with ascess/ESOPHAGOGASTRODUODENOSCOPY (EGD), FLEXIBLE, TRANSORAL, DIAGNOSTIC performed by Barb Dunn MD at [facility] EGD, FLEXIBLE, DIAGNOSTIC 06/22/2023 normal/ESOPHAGOGASTRODUODENOSCOPY (EGD), FLEXIBLE, TRANSORAL, DIAGNOSTIC performed by Barb Dunn MD at ENDOSCOPY [facility] EGD, W/ENDOSCOPIC US 05/27/2018 normal/ESOPHAGOGASTRODUODENOSCOPY (EGD), FLEXIBLE, TRANSORAL, ENDOSCOPIC ULTRASOUND performed by Jaime Jean Baptiste MD at ENDOSCOPY [facility] EGD, W/ENDOSCOPIC US 11/18/2023 ESOPHAGOGASTRODUODENOSCOPY (EGD), FLEXIBLE, TRANSORAL, ENDOSCOPIC ULTRASOUND performed by Dawit Mckay MD at ENDOSCOPY [facility] EYE MUSCLE SURGERY FOLLOWUP age 3 and age 8 R eye INJECT DX/THER SUBSTANCE INTERLAMINAR LUMBAR/SACRAL W IMAGE GUIDE 12/31/2017 INJECTION SPINE LUMBAR OR SACRAL performed by Riaz Huston DO at OR [facility] INJECT DX/THER SUBSTANCE INTERLAMINAR LUMBAR/SACRAL W IMAGE GUIDE 01/28/2018 INJECTION SPINE LUMBAR OR SACRAL performed by Riaz Huston DO at OR [facility] IR ASPIRATION ABSCESS/COLLECTION 01/27/2020 IR ASPIRATION ABSCESS/COLLECTION 01/23/2023 IR BIOPSY 10/27/2022 PARTIAL COLECTOMY W/ANASTOMOSIS N/A 01/14/2023 PARTIAL COLECTOMY WITH ANASTOMOSIS performed by Jeffrey Mesa MD at OR [facility] REMOVAL OF APPENDIX N/A 01/14/2023 APPENDECTOMY performed by Jeffrey Mesa MD at OR [facility] REMOVAL OF SMALL INTESTINE W/FUSION N/A 01/14/2023 ENTERECTOMY SMALL BOWEL RESECTION performed by Jeffrey Mesa MD at OR [facility] REMOVAL OF VULVA, 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 1 Tab 0 CALCIUM 500 MG PO TABS Take 600 mg by mouth at bedtime. 1 Tab 0 folic acid 1 MG Tablet Take 1 Tablet by mouth in the morning. 30 Tab 11 Vitamin D, Cholecalciferol, 1000 units CAPS Take 1 Capsule by mouth in the morning. \. magnesium chloride ER (MAG-64) 64 MG TBEC Take 125 mg by mouth daily. DC from [facility] metroNIDAZOLE 1 % External Gel (Metrogel) Apply topically to affected area 2 times a day. To affected area. 30 g 5 Atorvastatin Calcium 20 MG Oral Tablet (Lipitor) Take 1 Tablet by mouth in the morning. 100 Tablet 3 Famotidine 20 MG Oral Tablet (Pepcid) TAKE ONE TABLET BY MOUTH IN THE MORNING AND TAKE ONE TABLET BY MOUTH BEFORE BEDTIME (Patient taking differently: Takes at bedtime only.) 180 Tablet 1 Varenicline Tartrate 1 MG Oral Tablet Take 1 Tablet by mouth in the morning and 1 Tablet before bedtime. As directed on box.. (Patient not taking: Reported on 01/22/2024) 60 Tablet 3 DULoxetine HCl 30 MG Oral Capsule Delayed Release Particles (Cymbalta) Take 1 Capsule by mouth in the morning do not cut, crush or chew. 100 Capsule 1 Thiamine HCl 100 MG Oral Tablet (vitamin B-1) Take 1 Tablet by mouth in the morning. 90 Tablet 1 LORazepam 1 MG Oral Tablet (Ativan) Take 1/2 to 1 tablet three times a day as needed 60 Tablet 0 Pantoprazole Sodium 20 MG Oral Tablet Delayed Release (Protonix) TAKE ONE TABLET BY MOUTH IN THE MORNING 30 MINUTES BEFORE THE FIRST MEAL OF THE DAY . DO NOT CUT,CRUSH OR CHEW 90 Tablet 0 Albuterol Sulfate HFA 108 (90 Base) MCG/ACT Inhalation Aerosol Solution INHALE 2 PUFFS EVERY 4 HOURS NEEDED FOR WHEEZING. 18 g 2 Uhzkagbsrgy-Nqhcjebwp-Kvnlqn 100-62.5-25 MCG/ACT Aerosol Powder Breath Activated (Trelegy Ellipta) Inhale 1 Puff by mouth in the morning. 180 Each 3 Gabapentin 600 MG Oral Tablet (Neurontin) Take 1 Tablet by mouth in the morning and 1 Tablet beforebedtime. 200 Tablet 1 No current facility-administered medications for this visit. 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 Tobacco Use Smoking status: Every Day Current packs/day: 0.50 Average packs/day: 0.5 packs/day for 50.3 years (25.2 ttl pk-yrs) Types: Cigarettes Start date: 12/10/1972 Last attempt to quit: 12/10/2022 Passive exposure: Past Smokeless tobacco: Never Vaping Use Vaping status: Never Used Substance and Sexual Activity Alcohol use: Not Currently Comment: 2 vodka drinks every other day Drug use: No Comment: no caffiene Sexual activity: Not Currently Other Topics Concern Blood Transfusions No Sleep Concern No Special Diet Yes Comment: low cholesterol diet Seat Belt Yes Social History Narrative job: [employer] education: Bachelors psych, associates in nursing service: no hobbies/interests: sees family transfusions: no exercise: Walking diet: Avoid caffiene restorationism/rastafari: no marital status: at age 32 children: 3 gc: 4 from step, 2 natural ggc: 0 pets: 2 cats exposure to violence/threats/abuse: no things to improve: Job/stop sleeping so much Social Determinants of Health Financial Resource Strain: Low Risk (07/17/2023) Financial Resource Strain Do you have any trouble paying for your medications, or do you think you might in the future? (Adult - for ages 18 years and over): No Food Insecurity: No Food Insecurity (07/17/2023) Food Insecurity Do you need food for this week? (Adult - for ages 18 years and over): No Transportation Needs: No Transportation Needs (07/17/2023) Transportation Needs Do you have trouble getting a ride to medical visits or work? (Adult - for ages 18 years and over):Never True Social Connections: Socially Integrated (07/17/2023) Social Connections How often do you feel lonely or isolated from those around you? (Adult - for ages 18 years and over): Sometimes Housing Stability: Low Risk (07/17/2023) Housing Stability Do you currently live in a detention or have no steady place to sleep at night? (Adult - for ages 18 years and over): No Do you think you are at risk of becoming homeless? 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 Psych: mood and affect normal, cooperative Card: Peripheral pulses: normal in affected extremity (s) Resp: equal chest rise, non-tachypneic, non-labored breathing Skin: no rash Neuro: Coordination: normal; Sensation: normal on affected extremity (s) All other systems are negative PHYSICAL EXAM: General: well-nourished and in no acute distress HEENT: normocephalic, atraumatic, EOMI, sclera anicteric. Psych: mood and affect normal, cooperative Card: Peripheral pulses: normal in affected extremity (s) Resp: equal chest rise, non-tachypneic, non-labored breathing Skin: no rash Neuro: Coordination: normal; Sensation: normal on affected extremity (s) right Shoulder Inspection: bilateral and symmetrical without apparent abnormality AC Joint Prominence: negative Tenderness/Location: Nontender to palpation NVI axillary/med/rad/uln nerve sensation grossly intact Shoulder ROM: AROM: Approximately 90 forward flexion, approximately 80 abduction Strength: Deferred due to fracture AIN/PIN/Uln N 11/14 IMAGING: XRAYS: right shoulder AP/grashey/scapular Y/axillary performed 03/08/2024 per my interpretation demonstrates healing comminuted displaced proximal humerus fracture ASSESSMENT: Malika is a 68 year old female with displaced proximal humerus fracture. S42.294A Other closed nondisplaced fracture of proximal end of right humerus, initial encounter PLAN: Patient seen and examined in clinic today. I personally reviewed the patient's imaging studies withthe patient during today's visit. Various treatment options were discussed. We will continue formalphysical therapy to work on passive range of motion through her shoulder. She may progress to active range of motion and maybe partial weight-bearing at this time. An updated physical therapy script w as placed today. Patient will follow up in 6 weeks for re-evaluation with repeat x-rays and potential returned to work at that time. Patient expressed understanding and was in agreement with today's treatment plan. There are no Patient Instructions on file for this visit. Brunilda Valerio PA-C Orthopaedics [facility] [address] [facility] [place] [id number] Orthopedic Sports Medicine Surgery This chart was completed in part utilizing [employer] Speech Voice Recognition Software. Grammatical errors, random word insertions, pronoun errors, and incomplete sentences are an occasional consequence of this system due to software limitations, ambient noise, and hardware issues. Any formal questions or concerns about the content, text, or information contained within the body of this dictation should be directly addressed to the provider for clarification. documented in this encounter Nursing Notes * Shayna Murcia CMA - 03/08/2024 1:36 PM EDT Pt is here for a follow up R shoulder w off and on pain with movement. documented in this encounter Plan of Treatment Upcoming Encounters Date Type Department Care Team (Late st Contact Info) Description 04/05/2024 2:00 PM EDT Office Visit Hepatology, [facility] [address] [facility] [place] [address] Ashley Cheema MD [facility] [place] [address] 04/19/2024 2:00 PM EDT Office Visit Orthopaedics [facility] [address] [facility] [place] [address] Brunilda Valerio PA-C [address] [facility] [place] [address] 05/03/2024 1:00 PM EDT Office Visit Family Practice [address] [place] [address] [address] [facility] [place] [address] [address] Morales DO [address] [place] [address] 06/24/2024 10:00 AM EST Office Visit [facility] [address] [place] [address] Paloma Vidales MD [address] [place] [address] [place] [address] 07/14/2024 10:30 AM EST Office Visit [facility] [address] [place] [address] Paloma Vidales MD [address] [place] [address] [place] [address] 07/19/2024 11:40 AM EST Office Visit [address] [address] Mellissa Blanco PA-C [address] [place] [address] [place] [address] 07/26/2024 10:00 AM EST Office Visit [facility] [address] [place] [address] Paloma Vidales MD [address] [place] [address], [place] [address] Pending Results Name Type Priority Associated Diagnoses Date /Time XR SHOULDER, 2 OR MORE VIEWS Medical Imaging Routine 03/08/2024 1:44 PM EDT Scheduled Procedures Name Priority Associated Diagnoses Date/Ti me COLONOSCOPY FLEXIBLE PROXIMA L DIAGNOSTIC Recall Encounter for screening colonoscopy Scheduled Referrals Name Type Priority Associated Diagnoses Orde r Schedule PHYSICAL THERAPY REFERRAL OP Referral Within 10 days (routine) Other closed nondisplaced fracture of proximal end of right humerus, sequela Ordered: 03/08/2024 Health Maintenance Due Date Last Done Comments DISCUSS TOBACCO CESSATION (REFER TO SMARTSET #[id number]) 1953 Cologuard 1998 Fecal Occult Blood Test 1998 Sigmoidoscopy 1998 Hepatitis B Vaccine (1 of 3 - Risk 3-dose series) 2013 Adult Wellness Visit 2019 *ADVANCE DIRECTIVE NOT ON FILE 01/20/2022 COVID-19 Vaccine (24 season) 2023 07/17/2023, 01/08/2023, 06/25/2022, Additional history [...] as of this encounter Visit Diagnoses Diagnosis Other closed nondisplaced fracture of proximal end of right humerus, sequela- Primary documented in this encounter Advance Directives Documents on File Type Date Recorded 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
--- OUTSIDE RECORDS SUMMARY | 2024-04-20 08:51 | External Medical Summary | Summary of Care ---
Author Name Unknown Organization [facility] Address [address] [place] [address] Phone [phone] Care Team Providers Care Model And Pattern Supervisor Name Role Phone Ct Morales DO Primary Care Provider Reason for Visit * Reason Onset Date Comments [facility]: Screening 03/24/2024 Encounter Details Date Type Department Care Team ([facility] st Contact Info) Description 03/24/2024 Telephone [facility], [facility] [address] [place] [address] Meredith Crabtree, JENNIFER [address] [place] [address] [facility]: Screening Allergies No known active allergiesdocumented as of this encounter (statuses as of 03/24/2024) Medications Medication Sig Dispensed Refills Start Date [...] 125 mg by mouth daily. DC from [facility] 04/16/2018 Active metroNIDAZOLE 1 % External Gel [...] in the morning. 100 Tablet 03/20/2024 Active documented as of this encounter (statuses as of 03/24/2024) Active Problems Problem Noted Date Diagnosed Date [...] as of this encounter (statuses as of 03/24/2024) Resolved Problems Problem Noted Date Diagnosed Date Resolved Date Portal vein thrombosis 04/16/201809/14 Hematuria 04/02/2018 01/17/2022 Spasm of lumbar paraspinous muscle 07/16/2017 01/17/2022 Bilateral sacroiliitis 07/16/201708/01 Acute respiratory failure with hypoxia 11/20/2015 01/17/2022 Fatty liver 08/28/2015 11/20/2015 Screen for colon cancer 08/28/2015 07/02/2022 Need for shingles vaccine 06/17/2013 Neck swelling [...] as of this encounter (statuses as of 03/24/2024) Immunizations Name Administration Dates Next Due COVID-19 mRNA, LNP-s, No Pre serve, 2-Dose Series ([employer]) 01/01/2022,07/12/2021,08/25/2020,07/14 COVID-19, MRNA-LNP, 23-24, P F, 30 [...] No 07/17/2023 Does the household have a [facility] source of income? (Household - for ages [...] encounter Miscellaneous Notes * Telephone Encounter - Meredith Crabtree LPN - 03/24/2024 12:25 PM EDT Malika Gregory was referred as a potential candidate for enrollment for [facility]. A review of this chart was completed and: Malika does not meet criteria for enrollment into [facility]. Referral Source: Monthly Proactive Eligibility List Criteria for Ineligibility: Not Located in Service Area Referring care team was notified via : Digital [employer] communication Pt is located in the [facility] service area but does not have the multiple complex medical dx required for enrollment. As per leadership documented in this encounter Plan of Treatment Upcoming Encounters Date Type Department Care Team (Late st Contact Info) Description 04/05/2024 2:00 PM EDT Office Visit Hepatology, [facility] [address] [facility] [place] [address] Ashley Cheema MD [address] [place] [id number] 04/19/2024 2:00 PM EDT Office Visit Orthopaedics [facility] [address] [facility] [place] [address] Brunilda Valerio PA-C 132 [facility] [place] [address] 05/03/2024 1:00 PM EDT Office Visit Family Practice [address] [place] [address] 293 [place] [address] Ct Morales DO 293 [facility] [address] 06/24/2024 10:00 AM EST Office Visit [facility] [address] [place] [address] Paloma Vidales MD [address] [place] [address], [place] [address] 07/14/2024 10:30 AM EST Office Visit [facility] [address] [place] [address] Paloma Vidales MD [address] [place] [address], [place] [address] 07/19/2024 11:40 AM EST Office Visit [address] [address] Mellissa Blanco PA-C [address] [place] [address] [place] [address] 07/26/2024 10:00 AM EST Office Visit [facility] [address] [place] [address] Paloma Vidales MD [address] [place] [address], [place] [address] Scheduled Procedures Name Priority Associated Diagnoses Date/Ti me COLONOSCOPY FLEXIBLE PROXIMA L DIAGNOSTIC Recall Encounter for screening colonoscopy Health Maintenance Due Date Last Done Comments DISCUSS TOBACCO CESSATION (REFER TO SMARTSET #3091) 1955 Cologuard 1998 Fecal Occult Blood Test [...] Not on filedocumented as of this encounter Advance Directives Documents on File Type Date Recorded Patient 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
--- OUTSIDE RECORDS SUMMARY | 2024-04-20 08:51 | External Medical Summary | Summary of Care ---
Author Name Unknown Organization [facility] Address [address] [place] [address] Phone [phone] Care Team Providers Care Advertising Representative Name Role Phone Ct Christy DO Primary Care Provider Reason for Visit * Reason Comments Medication Refill Encounter Details Date Type Department Care Team (Late st Contact Info) Description 03/18/2024 Refill Family Practice [address] [place] [address] [place] [address] Ct Christy DO [address] [place] [address] Dyslipidemia, goal LDL below 100 Allergies No known active allergiesdocumented as of this encounter (statuses as of 03/22/2024) Medications Medication Sig Dispensed Refills Start Date [...] 125 mg by mouth daily. DC from [facility] 04/16/2018 Active metroNIDAZOLE 1 % [...] in the morning. 100 Tablet 03/20/2024 Active Atorvastatin Calcium 20 MG Oral Tablet (Lipitor)Indicati ons:Dyslipidemia, goal LDL below 100 Take 1 Tablet by mouth in the morning. 100 Tablet 3 02/02/2023 Discontinue d(Refill) documented as of this encounter (statuses as of 03/22/2024) Active Problems Problem Noted Date Diagnosed Date [...] as of this encounter (statuses as of 03/22/2024) Resolved Problems Problem Noted Date Diagnosed Date [...] as of this encounter (statuses as of 03/22/2024) Immunizations Name Administration Dates Next Due COVID-19 mRNA, LNP-s, No Pre serve, 2-Dose Series ([email or web address]) 01/01/2022,07/12/2021,08/25/2020,07/14 COVID-19, MRNA-LNP, 23-24, P F, 30 MCG/0.3 mL, 12 YRS AND ABOVE, IM ([employer]Comirnaty) 07/17/2023 Covid-19, Mrna, Lnp-s, Pf, B ivalent, [...] No 07/17/2023 Does the household have a [facility] source [facility] income? (Household - for ages [...] encounter Miscellaneous Notes * Telephone Encounter - Paulie Cordero - 03/22/2024 12:47 AM EDT Received message from [facility] regarding patient needing labs. Patient was notified. Successfully contacted patient and provided [facility] message. * Telephone Encounter - Radha Higgins [facility] - 03/20/2024 8:56 AM EDTSigned Prescriptions: Disp Refills Atorvastatin Calcium 20 MG Oral Tablet (Li*100 Ta*0 Sig: Take 1 Tablet by mouth in the morning. Authorizing Provider: CT CHRISTY Ordering User: RADHA HIGGINS * Telephone Encounter - Radha Higgins [facility] - 03/20/2024 8:55 AM EDT Provided 100 days supply with 0 refill(s). Per refill protocol patient should have lipid panel on file within past year. Reviewed AMP report, Care Gaps/Health Maintenance, medications list, and for any routine labs typically ordered for this patient. Lab orders placed. Please contact patient to advise of labs ordered for blood draw. Recommend patient to fast if able for labs. Patient may still have water and regular medications. Advise to obtain labs before requesting the next refill. Thank you, Radha Higgins, PharmD Clinical Pharmacist [facility] 03/20/24 8:55 AM [phone] documented in this encounter Plan of Treatment Upcoming Encounters Date Type Department Care Team (Late st Contact Info) Description 04/05/2024 2:00 PM EDT Office Visit Hepatology, [facility] [place] [address] [facility] [place] [address] Ashley Cheema MD [address] [place] [id number] 04/19/2024 2:00 PM EDT Office Visit Orthopaedics [facility] [address] [facility] [place] [address] Brunilda Valerio PA-C [address] [place] [address] 05/03/2024 1:00 PM EDT Office Visit Family Practice [address] [place] [address] 293 [facility] [address] Ct Christy DO 293 [place] [address] 06/24/2024 10:00 AM EST Office Visit [facility] Surgery [facility] [address] [place] [address] Paloma Vidales MD [address] [place] [address], [place] [address] 07/14/2024 10:30 AM EST Office Visit [facility] Surgery [facility] [address] [place] [address] Paloma Vidales MD [address] [place] [address], [place] [address] 07/19/2024 11:40 AM EST Office Visit [facility] [place] [address] [facility] [place] [address] Mellissa Blanco PA-C [address] [place] [address] [place] [address] 07/26/2024 10:00 AM EST Office Visit [facility] Surgery [facility] [address] [place] [address] Plaoma Vidales MD [address] [facility] [address] Scheduled Procedures Name Priority Associated Diagnoses Date/Ti me COLONOSCOPY FLEXIBLE PROXIMA L DIAGNOSTIC Recall Encounter for screening colonoscopy Health Maintenance Due Date Last Done Comments DISCUSS TOBACCO CESSATION (REFER TO SMARTSET #4154) 1955 Cologuard 1998 Fecal Occult Blood Test [...] Cancer Screening 12/20/2025 Lipid Panel 06/14/2026 06/14/2021, 06/07/2016, 08/28/2015, Additional history exists DTap/Tdap Vaccines (3 [...] as of this encounter Visit Diagnoses Diagnosis Dyslipidemia, goal LDL below 100 Other and unspecified hyperlipidemia documented in this encounter Advance Directives Documents on File Type Date Recorded Patient Phlebotomy Services Representative Expl anation Power of Ditch Inspector 01/11/2023 Porter Gregory POWER OF PRECISION LENS GRINDER * Full Code (Latest Code Status on [...] Agen t (per Health Care Power of Ditch Inspector document) Care Teams Advertising Representative Relationship Specialty Start Date End Date Ct Christy DO [address] [place] [address] PCP - General Family Medicine 12/31/23 documented as of this encounter
--- OUTSIDE RECORDS SUMMARY | 2024-04-20 08:51 | External Medical Summary | Summary of Care ---
Author Name Unknown Organization [facility] Address [address] [place] [address] Phone [phone] Care Team Providers Care Heavy Equipment Rental Manager Name Role Phone Ct Morales DO Primary Care Provider Reason for Visit * Reason Comments Follow Up Encounter Details Date Type Department Care Team (Late st Contact Info) Description 02/05/2024 2:20 PM EDT Office Visit Family Practice [address], [place] [address] [place] [address] [address] Morales DO [address] [place] [address] Alcoholic cirrhosis of liver without ascites (HCC)*; Neuropathy; Other closed nondisplaced fracture of proximal end of right humerus with routine healing, subsequent encounter; Basal cell carcinoma (BCC) of skin of other part of face Allergies No known active allergiesdocumented as of this encounter (statuses as of 02/10/2024) Medications Medication Sig Dispensed Refills Start Date [...] 1 Capsule by mouth in the morning. \\. 04/16/2018 Active magnesium chloride ER (MAG-64) 64 MG TBECIndications:H ospital discharge follow-up,Sepsis, due to unspecified organism,Alcohol use,Hypomagnesemi a Take 125 mg by mouth daily. DC from [facility] 04/16/2018 Active metroNIDAZOLE 1 % External [...] the morning. 180 Each 3 02/05/2024 Active Fluticasone-Umecl idin-Vilant 100-62.5-25 MCG/ACT Aerosol Powder Breath Activated (Trelegy Ellipta) INHALE ONE PUFF BY MOUTH EVERY MORNING 180 Each 3 12/04/2022 Discontinue d(Refill) documented as of this encounter (statuses as of 02/10/2024) Active Problems Problem Noted Date Diagnosed Date [...] as of this encounter (statuses as of 02/10/2024) Resolved Problems Problem Noted Date Diagnosed Date [...] as of this encounter (statuses as of 02/10/2024) Immunizations Name Administration Dates Next Due COVID-19 mRNA, LNP-s, No Pre serve, 2-Dose Series (Testin) 01/01/2022,07/12/2021,08/25/2020,07/14 COVID-19, MRNA-LNP, 23-24, P F, 30 MCG/0.3 mL, 12 YRS AND ABOVE, IM ([facility] 07/17/2023 Covid-19, Mrna, Lnp-s, Pf, B ivalent, [...] Passive Smoke Exposure: Past Smokeless Tobacco: Never Tobacco Cessation:Ready to Q uit: No; Counseling Given: Yes Alcohol Use Standard Drinks/Week Comments Not Currently [...] 07/17/2023 Does the household have a re lar source of income? (Household - for ages [...] on file documented as of this encounter Last Filed Vital Signs Vital Sign Reading Time Taken Comments Blood Pressure 130/72 02/05/2024 2:37 PM EDT Pulse 102 02/05/2024 2:37 PM EDT Temperature 36.7 C (98 F) 02/05/2024 2:37 PM EDT Respiratory Rate 14 02/05/2024 2:37 PM EDT Oxygen Saturation 94% 02/05/2024 2:37 PM EDT Inhaled Oxygen Concentration - - Weight 75.9 kg (167 lb 4.8 oz) 02/05/2024 2:37 P M EDT Height 162.6 cm (5' 4.02") 02/05/2024 2:37 PM ED T Body Mass Index 28.7 02/05/2024 2:37 PM EDT documented in this encounter Functional Status Functional Status Response [...] as of this encounter Progress Notes * Ct Morales, - 02/10/2024 11:44 AM EDT SUBJECTIVE: Chief Complaint Patient presents with Follow Up HPI: Malika Gregory is a 68 year old female who presents today for regular return. Pt notes thatshe is doing well. She continues to have neuropathy but feels that it is manageable. She had a fall in December and did fracture her humerus. She has been following with orthopedics. She notes she is most frustrated that she cannot get anywhere as she is not allowed to drive. She will need MOHS surgery due to BCC on skin biopsies through dermatology. PHM: Patient Active Problem List Diagnosis Dyslipidemia, goal LDL below 100 HTN, goal below 140/90 Major depressive disorder, recurrent episode, moderate (HCC) Generalized anxiety disorder Tobacco use Overweight (BMI 25.0-29.9) Alcohol use MEDICATION USE AGREEMENT Multiple lung nodules on CT Hypokalemia Hypomagnesemia Restrictive lung disease Alcoholic cirrhosis of liver without ascites (HCC) Biliary disease Diverticulitis of sigmoid colon Prediabetes COPD, group C, by GOLD 2017 classification (HCC) Gastro-esophageal reflux disease without esophagitis Alcohol dependence, uncomplicated (HCC) Enterocolic fistula Current Outpatient Medications Medication Sig Dispense Refill [...] 1 Capsule by mouth in the morning. \\. magnesium chloride ER (MAG-64) 64 MG TBEC Take 125 mg by mouth daily. DC from [facility] metroNIDAZOLE 1 % External Gel (Metrogel) [...] Takes at bedtime only.) 180 Tablet 1 Gabapentin 600 MG Oral Tablet (Neurontin) Take 1 Tablet by mouth in the morning and 1 Tablet beforebedtime. 200 Tablet 1 DULoxetine HCl 30 MG Oral Capsule Delayed [...] HOURS NEEDED FOR WHEEZING. 18 g 2 Nlyuwvtwjjl-Zuliyyfuj-Gjklel 100-62.5-25 MCG/ACT Aerosol Powder Breath Activated (Trelegy Ellipta) Inhale 1 Puff by mouth in the morning. 180 Each 3 Varenicline Tartrate 1 MG Oral Tablet Take 1 Tablet by mouth in the morning and 1 Tablet before bedtime. As directed on box.. (Patient not taking: Reported on 01/22/2024) 60 Tablet 3 No current facility-administered medications for this visit. 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 MEGHAN 2-3 HTN, goal below 140/90 Lumbar stenosis Lung nodule MEDICATION USE AGREEMENT 08/28/2015 Other anxiety states started in [facility] Dr [place] Restrictive lung disease 11/11/2015 PFT Past Surgical History: Procedure Laterality Date BREAST BIOPSY Right unknown date; benign DELIVERY x 3 COLONOSCOPY, DIAGNOSTIC (RECTUM) 12/21/2015 diverticulosis, lipoma, repeat 10 yrs/COLONOSCOPY FLEXIBLE PROXIMAL DIAGNOSTIC performed by Jelly Jean Baptiste MD at ENDOSCOPY [facility] COLONOSCOPY, DIAGNOSTIC (RECTUM) 11/15/2015 COLONOSCOPY FLEXIBLE PROXIMAL DIAGNOSTIC performed by Jaime Jean Baptiste MD at [facility] COLORECTAL CANCER SCREEN; COLON 2001 colonoscopy- 8 yrs CONIZATION OF CERVIX 01/1995 path neg, Dr Romero DENTAL SURGERY PROCEDURE NEC age 18 wisdom teeth x 4 EGD, FLEXIBLE, DIAGNOSTIC 12/21/2015 normal bx, HH/ESOPHAGOGASTRODUODENOSCOPY (EGD), FLEXIBLE, TRANSORAL, DIAGNOSTIC performed by Jaime Jean Baptiste MD at ENDOSCOPY [facility] EGD, FLEXIBLE, DIAGNOSTIC 05/27/2018 hiatal hernia/ESOPHAGOGASTRODUODENOSCOPY (EGD), FLEXIBLE, TRANSORAL, DIAGNOSTIC performed by Jaime Jean Baptiste MD at ENDOSCOPY [facility] EGD, FLEXIBLE, DIAGNOSTIC N/A 01/20/2023 LA grade C reflux esophagitis/hiatal hernia/focal edema GEJ/ESOPHAGOGASTRODUODENOSCOPY (EGD), FLEXIBLE, TRANSORAL, DIAGNOSTIC performed by Barb Dunn MD at ENDOSCOPY [facility] EGD, FLEXIBLE, DIAGNOSTIC N/A 01/23/2023 submucosal nodule with small ulcer/biopsies show inflammation compatible with ascess/ESOPHAGOGASTRODUODENOSCOPY (EGD), FLEXIBLE, TRANSORAL, DIAGNOSTIC performed by Barb Dunn MD at OR [facility] EGD, FLEXIBLE, DIAGNOSTIC 06/22/2023 normal/ESOPHAGOGASTRODUODENOSCOPY (EGD), FLEXIBLE, TRANSORAL, DIAGNOSTIC performed by Barb Dunn MD at ENDOSCOPY [facility] EGD, W/ENDOSCOPIC US 05/27/2018 normal/ESOPHAGOGASTRODUODENOSCOPY (EGD), FLEXIBLE, TRANSORAL, ENDOSCOPIC ULTRASOUND performed by Jaime Jean Baptiste MD at ENDOSCOPY [facility] EGD, W/ENDOSCOPIC US 11/18/2023 ESOPHAGOGASTRODUODENOSCOPY (EGD), FLEXIBLE, TRANSORAL, ENDOSCOPIC ULTRASOUND performed by Dawit Mckay MD at ENDOSCOPY [facility] EYE MUSCLE SURGERY FOLLOWUP age 3 and age 8 R eye INJECT DX/THER SUBSTANCE INTERLAMINAR LUMBAR/SACRAL W IMAGE GUIDE 12/31/2017 INJECTION SPINE LUMBAR OR SACRAL performed by [place] Carlyle Huston DO at OR [facility] INJECT DX/THER SUBSTANCE INTERLAMINAR LUMBAR/SACRAL W IMAGE GUIDE 01/28/2018 INJECTION SPINE LUMBAR OR SACRAL performed by Riaz Carlyle Huston, DO at OR [facility] IR ASPIRATION ABSCESS/COLLECTION 01/27/2020 IR ASPIRATION ABSCESS/COLLECTION 01/23/2023 IR BIOPSY 10/27/2022 PARTIAL COLECTOMY W/ANASTOMOSIS N/A 01/14/2023 PARTIAL COLECTOMY WITH ANASTOMOSIS performed by Jeffrey Mesa MD at OR [facility] REMOVAL OF APPENDIX N/A 01/14/2023 APPENDECTOMY performed by Jeffrey Mesa MD at OR [facility] REMOVAL OF SMALL INTESTINE W/FUSION N/A 01/14/2023 ENTERECTOMY SMALL BOWEL RESECTION performed by Jeffrey Mesa MD at OR [facility] REMOVAL OF VULVA, PARTIAL 01/1995 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, margins clear, Dr Romero TREAT ECTOPIC , TUBE/OVARY in early 20s left tube removed US - LIVER 09/29/2008 no RUQ ascites Review of patient's allergies indicates: No Known Allergies Family History Problem Relation Name Age of Onset Cancer Mother throat- at 54 Cancer Father prostrate- at 75 Hypertension Father Hearing loss Brother Diabetes None Heart Disorder None Mental Disorder None Stroke None Family Status Relation Status Mo Fa Bro Alive Tahir Alive Son Alive Son Alive MGMA MGFA PGMA PGFA NONE (Not Specified) NONE (Not Specified) NONE (Not Specified) NONE (Not Specified) Social History Tobacco Use Smoking status: Every Day Current packs/day: 0.50 Average packs/day: 0.5 packs/day for 50.3 years (25.1 ttl pk-yrs) Types: Cigarettes Start date: 12/10/1972 Last attempt to quit: 12/10/2022 Passive exposure: Past Smokeless tobacco: Never Substance Use Topics Alcohol use: Not Currently Comment: 2 vodka drinks every other day Vaping/E-Cigarette Use Vaping/E-Cigarette Use Never User Vaping/E-Cigarette Substances Vaping/E-Cigarette Devices REVIEW OF SYSTEMS: Review of Systems Constitutional: Negative for chills, fatigue, fever and unexpected weight change. Respiratory: Negative for cough, chest tightness, shortness of breath and wheezing. Cardiovascular: Negative for chest pain, palpitations and leg swelling. Gastrointestinal: Negative for abdominal pain, constipation, diarrhea, nausea and vomiting. Musculoskeletal: Negative for arthralgias, gait problem and joint swelling. Skin: Negative for color change, pallor and rash. OBJECTIVE: BP 130/72 (BP Site: Left Arm, BP Position: Sitting, BP Cuff Size: Regular) | Pulse 102 | Temp 36.7 C (98 F) (Tympanic) | Resp 14 | Ht 1.626 m (5' 4.02") | Wt 75.9 kg (167 lb 4.8 oz) | LMP 09/08/2007 | SpO2 94% | BMI 28.70 kg/m | BSA 1.85 m PHYSICAL EXAM: Physical Exam Constitutional: General: She is not in acute distress. Appearance: She is well-developed. Cardiovascular: Rate and Rhythm: Normal rate and regular rhythm. Heart sounds: Normal heart sounds. No murmur heard. No friction rub. No gallop. Pulmonary: Effort: Pulmonary effort is normal. No respiratory distress. Breath sounds: Normal breath sounds. No wheezing or rales. Abdominal: General: Bowel sounds are normal. There is no distension. Palpations: Abdomen is soft. Tenderness: There is no abdominal tenderness. There is no guarding. Musculoskeletal: General: No tenderness or deformity. Normal range of motion. Skin: General: Skin is warm and dry. Coloration: Skin is not pale. Findings: No erythema or rash. Neurological: Mental Status: She is alert and oriented to person, place, and time. ASSESSMENT/PLAN: (K70.30) Alcoholic cirrhosis of liver without ascites (HCC) (primary encounter diagnosis) Plan: pt will keep f/u with hepatology. No changes for now. (G62.9) Neuropathy Plan: pt will remain on gabapentin and duloxetine. (S42.294D) Other closed nondisplaced fracture of proximal end of right humerus with routine healing, subsequent encounter Plan: Pt following with orthopedics. Doing well. (C44.319) Basal cell carcinoma (BCC) of skin of other part of face Plan: Pt will schedule MOHS surgery. Advised of importance of this. Follow-up: 3 months Total time today including reviewing chart before the visit, pertinent labs, imaging reports, face to face time, and documentation time was [address] Morales DO * Danii Castro LPN - 02/05/2024 2:38 PM EDT Patient has Advanced Directive scanned into her chart. documented in this encounter Nursing Notes * Danii Castro LPN - 02/05/2024 2:35 PM EDT Patient here for routine follow up visit. Reports she fell mid December and fractured right humeral head. Arm in sling. documented in this encounter Plan of Treatment Upcoming Encounters Date Type Department Care Team (Late st Contact Info) Description 03/01/2024 2:00 PM EDT Office Visit Orthopaedics [facility] [address] [place] [address] Brunilda Valerio PA-C [address] [place] [address] 04/05/2024 2:00 PM EDT Office Visit Hepatology, [facility] [address] [place] [address] Ashley Cheema MD [address] [place] [address] 05/03/2024 1:00 PM EDT Office Visit Family Practice [address], [place] [address] [place] [address] [address] Morales DO [address] [place] [address] 07/19/2024 11:40 AM EST Office Visit Dermatology[address] [address] Mellissa Blanco PA-C [address] [place] [address] [place] [address] Scheduled Procedures Name Priority Associated Diagnoses Date/Ti me COLONOSCOPY FLEXIBLE PROXIMA L DIAGNOSTIC Recall Encounter for screening colonoscopy Health Maintenance Due Date Last Done Comments DISCUSS TOBACCO CESSATION (REFER TO SMARTSET #[id number]) 1955 Cologuard 1998 Fecal Occult Blood Test [...] 06/14/2026 06/14/2021, 06/07/2016, 08/28/2015, Additional history exists DTaP,Tdap,and Td Vaccines [...] as of this encounter Visit Diagnoses Diagnosis Alcoholic cirrhosis of liver without ascites (HCC)- Primary Alcoholic cirrhosis of liver Neuropathy Mononeuritis of unspecified site Other closed nondisplaced fracture of proximal end of right humerus with routine healing, subsequent encounter Basal cell carcinoma (BCC) of skin of other part of face documented in this encounter Advance Directives Documents on File Type Date Recorded Patient Dance Master Expl anation Power of Boilermaker Apprentice 01/11/2023 Porter Gregory POWER OF LEAD BURNER * Full Code (Latest Code Status on [...] Agen t (per Health Care Power of Boilermaker Apprentice document) Care Teams Heavy Equipment Rental Manager Relationship Specialty Start Date End Date Ct Morales DO [address] [place] [address] PCP - General Family Medicine 12/31/23 documented as of this encounter
--- OUTSIDE RECORDS SUMMARY | 2024-04-20 08:51 | External Medical Summary | Summary of Care ---
Author Name Unknown Organization [facility] Address [address] [place] [address] Phone [phone] Care Team Providers Care Bevel Polisher Name Role Phone Andrew Ctravi Ramsey DO Primary Care Provider [phone] Reason for Referral * Evaluate & Treat - Unlimited Visits (Within 30 days (routine)) - Authorized Specialty Diagnoses / Procedures Referred By Mark kaufman Referred To Contact Dermatology Diagnoses BCC (basal cell carcinoma), face Deepak Miller MD [address] [facility] [place] [address] Referral ID Status Reason Start Date Expiration Date Visits Requested Visits Authorized [id number] Authorized Specialty Services Required 01/22/2024 1 1 [...] cheek, shave: Basal cell carcinoma Skin, Right oriental orthodox, shave: Basal cell carcinoma Encounter Details Date Type Department Care Team (Late st Contact Info) Description 01/22/2024 Telephone Dermatology [facility] Dow [address] [place] [address] Deepak Miller MD [address] [facility] [place] [address] Allergies No known active allergiesdocumented as of this encounter (statuses as of 02/11/2024) Medications Medication Sig Dispensed Refills Start Date [...] 125 mg by mouth daily. DC from [facility] 04/16/2018 Active metroNIDAZOLE 1 % External Gel [...] as of this encounter (statuses as of 02/11/2024) Active Problems Problem Noted Date Diagnosed Date [...] as of this encounter (statuses as of 02/11/2024) Resolved Problems Problem Noted Date Diagnosed Date [...] as of this encounter (statuses as of 02/11/2024) Immunizations Name Administration Dates Next Due COVID-19 [...] Telephone Encounter - Sylvia Spangler OSA - 02/11/2024 4:15 PM EDT Pt called in and we scheduled three MOHS appts * Telephone Encounter - Sylvia Spangler OSA [...] 03/01/2024 2:00 PM EDT Office [facility] [address] Brunilda Valerio [facility] [address] 04/05/2024 2:00 PM EDT Office Visit [facility], [facility] [address] Ashley Cheema MD [address] [place] [id number] 05/03/2024 1:00 PM EDT Office Visit Family Practice [address] [place] [address] [address] [place] [address] Ct Morales DO [address] [place] [address] 06/24/2024 10:00 AM EST Office Visit [facility] Surgery [facility] [address] [place] [address] Paloma Vidales MD [address] [place] [address], [place] [address] 07/14/2024 10:30 AM EST Office Visit [facility] Surgery [facility] [address] [place] [address] Paloma Vidales MD [address] [facility] [place] [address] 07/19/2024 11:40 AM EST Office Visit Dermatology[address] [address] Mellissa Blanco PA-C [address] [place] [address] [place] [address] 07/26/2024 10:00 AM EST Office Visit [facility] Surgery Brandy Chamorro [place] [address] [facility] [place] [address] Paloma Vidales MD [address] [facility], [place] [address] Scheduled Procedures Name Priority Associated Diagnoses Date/Ti me COLONOSCOPY FLEXIBLE PROXIMA L DIAGNOSTIC Recall Encounter for screening colonoscopy Scheduled Referrals Name Type Priority Associated Diagnoses Orde r Schedule [facility] SURGERY REFERRAL OP Referral Within 30 days (routine) BCC (basal cell carcinoma), face Ordered: 01/22/2024 Health Maintenance Due Date Last Done Comments DISCUSS TOBACCO CESSATION (REFER TO SMARTSET #[id number]) 1955 Cologuard 1998 Fecal Occult Blood Test [...] Documents on File Type Date Recorded Patient Pot Holder Binder Expl anation Power of Pillar Worker 01/11/2023 Porter Gregory POWER OF AUTOMATIC PROFILE SANDER OPERATOR * Full Code (Latest Code Status on [...] Agen t (per Health Care Power of Pillar Worker document) Care Teams Bevel Polisher Relationship Specialty Start Date End Date Ct Morales DO [address] [place] [address] PCP - General Family Medicine 12/31/23 documented as of this encounter
--- OUTSIDE RECORDS SUMMARY | 2024-04-20 08:51 | External Medical Summary | Summary of Care ---
Author Name Unknown Organization [facility] Address [address] [place] [address] Phone [phone] Care Team Providers Care Dog Catcher Name Role Phone Ct Christy DO Primary Care Provider Reason for Visit * Reason Comments Medication Refill Encounter Details Date Type Department Care Team (Late st Contact Info) Description 02/15/2024 Refill Family Practice [address], [place] [address] [place] [address] [address] Christy DO [address] [place] [address] Paresthesias Allergies No known active allergiesdocumented as of this encounter (statuses as of 02/15/2024) Medications Medication Sig Dispensed Refills Start Date [...] mg by mouth daily. DC from [facility] 04/16/2018 Active metroNIDAZOLE 1 % [...] before bedtime. 200 Tablet 1 02/15/2024 Active Gabapentin 600 MG Oral Tablet (Neurontin)Indica tions:Paresthesia s Take 1 Tablet by mouth in the morning and 1 Tablet before bedtime. 200 Tablet 1 07/17/2023 Discontinue d(Refill) documented as of this encounter (statuses as of 02/15/2024) Active Problems Problem Noted Date Diagnosed Date [...] as of this encounter (statuses as of 02/15/2024) Resolved Problems Problem Noted Date Diagnosed Date [...] as of this encounter (statuses as of 02/15/2024) Immunizations Name Administration Dates Next Due COVID-19 mRNA, LNP-s, No Pre serve, 2-Dose Series ([employer] Kid) 01/01/2022,07/12/2021,08/25/2020,07/14 COVID-19, MRNA-LNP, 23-24, P F, 30 MCG/0.3 mL, 12 YRS AND ABOVE, IM (elarm-Comirnaty) 07/17/2023 Covid-19, Mrna, Lnp-s, Pf, B ivalent, [...] encounter Miscellaneous Notes * Telephone Encounter - Ct Christy DO - 02/15/2024 2:40 PM EDTSigned Prescriptions: Disp Refills Gabapentin 600 MG Oral Tablet (Neurontin) 200 Ta*1 Sig: Take 1 Tablet by mouth in the morning and 1 Tablet before bedtime. Authorizing Provider: CT CHRISTY * Telephone Encounter - Lia De La Cruz LPN - 02/15/2024 2:07 PM EDTPending Prescriptions: Disp Refills Gabapentin 600 MG Oral Tablet (Neurontin) 200 Ta*1 Sig: Take 1 Tablet by mouth in the morning and 1 Tablet before bedtime. * Telephone Encounter - Lia De La Cruz LPN - 02/15/2024 2:06 PM EDT Did you pend patient's preferred pharmacy and medication before forwarding?yes Pharmacy: [facility] Pending Prescriptions: Disp Refills Gabapentin 600 MG Oral Tablet (Neurontin) 200 Ta*1 Sig: Take 1 Tablet by mouth in the morning and 1 Tablet before bedtime. Last Visit: 02/05/2024 (in office), 01/22/2024 (telemedicine) Next Visit: 05/03/2024 If no future appointments scheduled, and last appointment is greater than a year ago, please schedule patient for a follow-up appointment Last date the medication was ordered: 07/17/2023 Is this request for a controlled substance?No Urine Drug Screen:No results found. However, due to the size of the patient record, not all encounters were searched. Please check Results Review for a complete set of results. Patient Phone Numbers Labs: Lab Results Component Value Date/Time CREAT 0.9 01/25/2023 04:57 AM CREAT 0.9 02/06/2020 12:40 PM POTASSIUM 3.4 (L) 01/25/2023 04:57 AM POTASSIUM 4.8 02/06/2020 12:40 PM TSH 2.58 02/02/2023 05:10 PM TSH 4.610 (A) 04/13/2018 12:00 AM TSH 0.82 12/11/2016 03:29 PM LDLCALC 139 (H) 06/14/2021 01:05 PM LDLCALC 149 (H) 12/11/2016 03:29 PM LDLDIRECT NOT APPLICABLE 08/28/2015 10:38 AM LDLDIRECT 245 (H) 10/12/2007 11:44 AM ALT 32 01/30/2023 02:18 PM ALT 21 02/06/2020 12:40 PM HGBA1C 6.6 (H) 01/15/2023 03:34 AM HGBA1C 5.8 (H) 02/06/2020 12:40 PM * Telephone Encounter - Betsey Cordero - 02/15/2024 6:08 AM EDTPending Prescriptions: Disp Refills Gabapentin 600 MG Oral Tablet (Neurontin) 200 Ta*1 Sig: Take 1Tablet by mouth in the morning and 1 Tablet before bedtime. documented in this encounter Plan of Treatment Upcoming Encounters Date Type Department Care Team (Late st Contact Info) Description 03/01/2024 2:00 PM EDT Office Visit Orthopaedics [facility] 132 [facility] [place] [address] Brunilda Valerio PA-C [address] [facility] [address] 04/05/2024 2:00 PM EDT Office Visit Hepatology, [facility] 132 [facility] [place] [address] Ashley Cheema MD [address] [place] [address] 05/03/2024 1:00 PM EDT Office Visit Family Practice [address] [place] [address] 293 [place] [address] Ct Christy DO [address] [place] [address] 06/24/2024 10:00 AM EST Office Visit [facility] Surgery [facility] 200 [facility] [place] [address] Paloma Vidalse MD [address] [place] [address], [place] [address] 07/14/2024 10:30 AM EST Office Visit [facility] Surgery [facility] 200 [facility] [place] [address] Paloma Vidales MD [address] [place] [address], [place] [address] 07/19/2024 11:40 AM EST Office Visit Dermatology, [place] [address] [facility] [place] [address] Mellissa Blanco PA-C [address] [place] [address] [place] [address] 07/26/2024 10:00 AM EST Office Visit [facility] Surgery [facility] [address] [place] [address] Paloma Vidales MD [address] [facility] [address] Scheduled Procedures Name Priority Associated Diagnoses Date/Ti me COLONOSCOPY FLEXIBLE PROXIMA L DIAGNOSTIC Recall Encounter for screening colonoscopy Health Maintenance Due Date Last Done Comments DISCUSS TOBACCO CESSATION (REFER TO SMARTSET #7992) 1955 Cologuard 1998 Fecal Occult Blood Test [...] as of this encounter Visit Diagnoses Diagnosis Paresthesias Disturbance of skin sensation documented in this encounter Advance Directives Documents on File Type Date Recorded Patient Farm Consultant Expl anation Power of Esters And Emulsifiers Supervisor 01/11/2023 Porter Gregory POWER OF ASSESSMENT SERVICES MANAGER * Full Code (Latest Code Status on [...] Agen t (per Health Care Power of Esters And Emulsifiers Supervisor document) Care Teams Dog Catcher Relationship Specialty Start Date End Date Ct Christy DO [address] [place] [address] PCP - General Family Medicine 12/31/23 documented as of this encounter
--- OUTSIDE RECORDS SUMMARY | 2024-04-20 08:51 | External Medical Summary | Summary of Care ---
Author Name Unknown Organization [facility] Address [address] [place] [address] Phone [phone] Care Team Providers Care Biological Engineer Name Role Phone Ct Morales DO Primary Care Provider [phone] Reason for Referral * Evaluate & Treat - Unlimited Visits (Within 10 days (routine)) - Authorized Specialty Diagnoses / Procedures Referred By Mark kaufman Referred To Contact Physical Therapy / Physical Medicine And Rehab Diagnoses Other closed nondisplaced fracture of proximal end of right humerus, initial encounter Brunilda Valerio PA-C [address] [place] [address] Referral ID Status Reason Start Date Expiration Date Visits Requested Visits Authorized [id number] Authorized Specialty Services Required 03/08/2024 999 999 [...] 03/08/2024 1:35 PM EDT Office Visit Orthopaedics [facility] [address] [facility] [place] [address] Brunilda Valerio PA-C [address] [place] [address] Other closed nondisplaced fracture of proximal end [...] mg by mouth daily. DC from [facility] 04/16/2018 Active metroNIDAZOLE 1 % External [...] MCG/0.3 mL, 12 YRS AND ABOVE, IM (DealerSocket-ComirnatThe [employer]) 07/17/2023 Covid-19, Mrna, Lnp-s, Pf, B ivalent, [...] as of this encounter Progress Notes * Brunilda Valerio PA-C - 03/08/2024 1:35 [...] performed by Jelly Jean Baptiste MD at [facility] COLONOSCOPY, DIAGNOSTIC (RECTUM) 11/15/2015 COLONOSCOPY FLEXIBLE PROXIMAL DIAGNOSTIC performed by Jaime Jean Baptiste MD at [facility] COLORECTAL CANCER SCREEN; COLON 2001 colonoscopy- 8 yrs CONIZATION OF CERVIX 01/[address] negDr Romero DENTAL SURGERY PROCEDURE NEC age 18 wisdom teeth x 4 EGD, FLEXIBLE, DIAGNOSTIC 12/21/2015 normal bx, HH/ESOPHAGOGASTRODUODENOSCOPY (EGD), FLEXIBLE, TRANSORAL, DIAGNOSTIC performed by Jaime Jean Baptiste MD at [facility] EGD, FLEXIBLE, DIAGNOSTIC 05/27/2018 hiatal hernia/ESOPHAGOGASTRODUODENOSCOPY (EGD), FLEXIBLE, TRANSORAL, DIAGNOSTIC performed by Jaime Jean Baptiste MD at [facility] EGD, FLEXIBLE, DIAGNOSTIC N/A 01/20/2023 LA grade C reflux esophagitis/hiatal hernia/focal edema GEJ/ESOPHAGOGASTRODUODENOSCOPY (EGD), FLEXIBLE, TRANSORAL, DIAGNOSTIC performed by Barb Dunn MD at [facility] EGD, FLEXIBLE, DIAGNOSTIC N/A 01/23/2023 submucosal nodule with small ulcer/biopsies show inflammation compatible with ascess/ESOPHAGOGASTRODUODENOSCOPY (EGD), FLEXIBLE, TRANSORAL, DIAGNOSTIC performed by Barb Dunn MD at [facility] EGD, FLEXIBLE, DIAGNOSTIC 06/22/2023 normal/ESOPHAGOGASTRODUODENOSCOPY (EGD), FLEXIBLE, TRANSORAL, DIAGNOSTIC performed by Barb Dunn MD at [facility] EGD, W/ENDOSCOPIC US 05/27/2018 normal/ESOPHAGOGASTRODUODENOSCOPY (EGD), FLEXIBLE, TRANSORAL, ENDOSCOPIC ULTRASOUND performed by Jaime Jean Baptiste MD at [facility] EGD, W/ENDOSCOPIC US 11/18/2023 ESOPHAGOGASTRODUODENOSCOPY (EGD), FLEXIBLE, TRANSORAL, ENDOSCOPIC ULTRASOUND performed by Dawit Mckay MD at ENDOSCOPY [facility] EYE MUSCLE SURGERY FOLLOWUP age 3 and age 8 R eye INJECT DX/THER SUBSTANCE INTERLAMINAR LUMBAR/SACRAL W IMAGE GUIDE 12/31/2017 INJECTION SPINE LUMBAR OR SACRAL performed by Riaz Huston DO at OR [facility] INJECT DX/THER SUBSTANCE INTERLAMINAR LUMBAR/SACRAL W IMAGE GUIDE 01/28/2018 INJECTION SPINE LUMBAR OR SACRAL performed by Riaz Huston DO at OR [facility] IR ASPIRATION ABSCESS/COLLECTION 01/27/2020 IR ASPIRATION ABSCESS/COLLECTION 01/23/2023 IR BIOPSY 10/27/2022 PARTIAL COLECTOMY W/ANASTOMOSIS N/A 01/14/2023 PARTIAL COLECTOMY WITH ANASTOMOSIS performed by Jeffrey Mesa MD at OR [facility] REMOVAL OF APPENDIX N/A 01/14/2023 APPENDECTOMY performed by Jeffrey Mesa MD at OR [facility] REMOVAL OF SMALL INTESTINE W/FUSION N/A 01/14/2023 ENTERECTOMY SMALL BOWEL RESECTION performed by Jeffrey Mesa MD at OR [facility] REMOVAL OF VULVA, 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 DC from [facility] metroNIDAZOLE 1 % External Gel (Metrogel) [...] HOURS NEEDED FOR WHEEZING. 18 g 2 Qnwclfwggyn-Dapelstqq-Bxbgyg 100-62.5-25 MCG/ACT Aerosol Powder Breath Activated (Trelegy [...] transfusions: no exercise: Walking diet: Avoid caffiene jew/voodoo: no marital status: at age 32 children: [...] Stability Do you currently live in a penitentiary or have no steady place to sleep [...] for this visit. Brunilda Valerio PA-C Orthopaedics [address] [place] [address] Orthopedic Sports Medicine Surgery This chart was completed in part utilizing [employer] Speech Voice Recognition Software. Grammatical errors, random [...] 04/05/2024 2:00 PM EDT Office Visit Hepatology, [facility] 132 [facility] [place] [address] Ashlye Cheema MD [address] [place] [address] 04/19/2024 2:00 PM EDT Office Visit Orthopaedics [facility] 132 [facility] [place] [address] Brunilda Valerio PA-C [facility] [address] 05/03/2024 1:00 PM EDT Office Visit Family Practice 65 [facility] [place] 293 [place] [address] Ct Morales DO 293 [place] [address] 06/24/2024 10:00 AM EST Office Visit [facility] Surgery [facility] 200 [facility] [place] [address] Paloma Vidales MD [address] [place] [address], [place] [address] 07/14/2024 10:30 AM EST Office Visit [facility] Surgery [facility] 200 [facility], [place] [address] Paloma Vidales MD [address] [place] [address] [place] [address] 07/19/2024 11:40 AM EST Office Visit [address] [address] Mellissa Blanco PA-C [address] [place] [address] [place] [address] 07/26/2024 10:00 AM EST Office Visit [facility] 200 [facility] [place] [address] Paloma Vidales MD 200 [facility] [place] [address] Pending Results Name Type Priority Associated Diagnoses [...] Comments DISCUSS TOBACCO CESSATION (REFER TO SMARTSET #0462) 1955 Cologuard 1998 Fecal Occult Blood Test [...] Cancer Screening 12/20/2025 Lipid Panel 06/14/2026 06/14/2021, 0607/2016, 08/28/2015, Additional history exists DTap/Tdap Vaccines (3 [...] Documents on File Type Date Recorded 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
--- OUTSIDE RECORDS SUMMARY | 2024-04-20 08:52 | External Medical Summary | Summary of Care ---
Author Name Unknown Organization [facility] Address [address] [place] [address] Phone [phone] Care Team Providers Care Merchant Miller Name Role Phone Andrew Ctravi Ramsey DO Primary Care Provider Reason for Referral * Evaluate & Treat - Unlimited Visits (Within 30 days (routine)) - Authorized Specialty Diagnoses / Procedures Referred By Mark kaufman Referred To Contact Dermatology Diagnoses BCC (basal cell carcinoma), face Deepak Miller MD 200 [facility] [place] [address] Referral ID Status Reason Start Date Expiration Date Visits Requested Visits Authorized [id number] Authorized Specialty Services Required 01/22/2024 1 1 [...] cheek, shave: Basal cell carcinoma Skin, Right amish, shave: Basal cell carcinoma Encounter Details Date Type Department Care Team (Late st Contact Info) Description 01/22/2024 Telephone Dermatology [facility] [address] [place] [address] Deepak Miller MD 200 [facility] [place] [address] Allergies No known active allergiesdocumented as of this encounter (statuses as of 02/01/2024) Medications Medication Sig Dispensed Refills Start Date [...] by mouth daily. DC from [facility] 04/16/2018 Active metroNIDAZOLE 1 % External Gel (Metrogel)Indicati ons:Perioral dermatitis Apply topically to affected area 2 times a day. To affected area. 30 g 5 10/09/2022 Active Fluticasone-Umecli din-Vilant 100-62.5-25 MCG/ACT Aerosol Powder Breath Activated (Trelegy Ellipta) INHALE ONE PUFF BY MOUTH EVERY MORNING 180 Each 3 12/04/2022 Active Atorvastatin Calcium 20 MG Oral Tablet [...] on 07/17/2023 Gabapentin 600 MG Oral Tablet (Neurontin)Indicat ions:Paresthesias Take 1 Tablet by mouth in the morning and 1 Tablet before bedtime. 200 Tablet 1 07/17/2023 Active Varenicline Tartrate 1 MG Oral TabletIndications: Tobacco [...] FOR WHEEZING. 18 g 2 01/21/2024 Active documented as of this encounter (statuses as of 02/01/2024) Active Problems Problem Noted Date Diagnosed Date [...] as of this encounter (statuses as of 02/01/2024) Resolved Problems Problem Noted Date Diagnosed Date Resolved Date Portal vein thrombosis 04/16/201809/14 Hematuria 04/02/2018 01/17/2022 Spasm of lumbar paraspinous muscle 07/16/2017 01/17/2022 Bilateral sacroiliitis 07/16/201708/01 Acute respiratory failure with hypoxia 11/20/2015 01/17/2022 Fatty liver 08/28/2015 11/20/2015 Screen for colon cancer 08/28/2015 070 02/2022 Need for shingles vaccine 06/17/2013 Neck [...] as of this encounter (statuses as of 02/01/2024) Immunizations Name Administration Dates Next Due COVID-19 mRNA, LNP-s, No Pre serve, 2-Dose Series (Zenring) 01/01/2022,07/12/2021,08/25/2020,07/14 COVID-19, MRNA-LNP, 23-24, P F, 30 [...] Date Smoking Tobacco: Every Day Cigarettes 0.5 50.2 Started: 12/10/1972; Last attempted to quit: 12/10/2022 [...] No 01/14/2023 documented as of this encounter Plan of Treatment Upcoming Encounters Date Type Department Care Team (Late st Contact Info) Description 02/05/2024 2:20 PM EDT Office Visit Family Practice [address] [place] [address] 293 [place] [address] Ct Morales DO 293 [place] [address] 03/01/2024 2:00 PM EDT Office Visit Orthopaedics [facility] 132 [facility] [place] [address] Brunilda Valerio PA-C 132 [facility] [place] [address] 04/05/2024 2:00 PM EDT Office Visit Hepatology, [facility] 132 [facility] [place] [address] Ashley Cheema MD [address] [place] [id number] 07/19/2024 11:40 AM EST [place] [address] [address] [facility] [place] [address] Mellissa Blanco PA-C [address] [place] [address] [place] [address] Scheduled Procedures Name Priority Associated Diagnoses Date/Ti me COLONOSCOPY FLEXIBLE PROXIMA L DIAGNOSTIC Recall Encounter for screening colonoscopy Scheduled Referrals Name Type Priority Associated Diagnoses Orde r Schedule MOHS SURGERY REFERRAL OP Referral Within 30 days (routine) BCC (basal cell carcinoma), face Ordered: 01/22/2024 Health Maintenance Due Date Last Done Comments DISCUSS TOBACCO CESSATION (REFER TO SMARTSET #9048) 1955 Cologuard 1998 Fecal Occult Blood Test [...] 06/14/2026 06/14/2021, 0607/2016, 08/28/2015, Additional history exists DTaP,Tdap,and Td Vaccines (3 - Td or Tdap) 06/14/2031 06/14/2021, 09/04/2009 Lung Cancer Screening Completed 11/15/2015 Alpha-1 Antitrypsin Completed 12/25/2021 Pneumococcal Vaccine: 65+ Years Completed 01/17/2022, 08/10/2018, 08/01/2011 Zoster Vaccines Completed 01/17/2022, 07/14, 01/06/2016 *BASELINE EKG FOR HTN Completed 12/31/2022 , 11/08/2021, 01/30/2020, Additional history exists HPV (Gardasil) Vaccine Aged [...] Documents on File Type Date Recorded Patient Slitter Cut Off Operator Expl anation Power of Gluing Pressman 01/11/2023 Porter Gregory POWER OF NUT THREADER * Full Code (Latest Code Status on [...] File Name Relationship Healthcare Agent [facility] Communication Porter Gregory Adult Child Health Care Agen t (per Health Care Power of Gluing Pressman document) Care Teams Merchant Miller Relationship Specialty Start Date End Date Ct Morales DO [address] [place] [address] PCP - General Family Medicine 12/31/23 documented as of this encounter
--- OUTSIDE RECORDS SUMMARY | 2024-04-20 08:52 | External Medical Summary | Summary of Care ---
Author Name Unknown Organization [facility] Address [address] [place] [address] Phone [phone] Care Team Providers Care Marketing Communications Associate Name Role Phone Andrew Ctravi Ramsey DO Primary Care Provider Reason for Referral * Evaluate & Treat - Unlimited Visits (Within 30 days (routine)) - Authorized Specialty Diagnoses / Procedures Referred By Mark kaufman Referred To Contact Dermatology Diagnoses BCC (basal cell carcinoma), face Deepak Miller MD 200 [facility] [place] [address] Referral ID Status Reason Start Date Expiration Date Visits Requested Visits Authorized [id number] Authorized Specialty Services Required 01/22/2024 1 1 [...] cheek, shave: Basal cell carcinoma Skin, Right caodaism, shave: Basal cell carcinoma Encounter Details Date Type Department Care Team (Late st Contact Info) Description 01/22/2024 Telephone Dermatology [facility] [address] [place] [address] Deepak Miller MD 200 [facility] [place] [address] Allergies No known active allergiesdocumented as of this encounter (statuses as of 02/04/2024) Medications Medication Sig Dispensed Refills Start Date [...] 125 mg by mouth daily. DC from [facility] 04/16/2018 Active metroNIDAZOLE 1 % External Gel [...] as of this encounter (statuses as of 02/04/2024) Active Problems Problem Noted Date Diagnosed Date [...] as of this encounter (statuses as of 02/04/2024) Resolved Problems Problem Noted Date Diagnosed Date [...] as of this encounter (statuses as of 02/04/2024) Immunizations Name Administration Dates Next Due COVID-19 mRNA, LNP-s, No Pre serve, 2-Dose Series (Bloxy) 01/01/2022,07/12/2021,08/25/2020,07/14 COVID-19, MRNA-LNP, 23-24, P F, 30 [...] 2:20 PM EDT Office Visit Family Practice [address] [place] [address] 293 [place] [address] Ct Morales DO 293 [place] [address] 03/01/2024 2:00 PM EDT Office Visit Orthopaedics [facility] 132 [facility] [place] [address] Brunilda Valerio PA-C 132 [facility] [place] [address] 04/05/2024 2:00 PM EDT Office Visit Hepatology, [facility] 132 [facility] [place] [address] Ashley Cheema MD [address] [place] [id number] 07/19/2024 11:40 AM EST [place] [address] [address] [facility] [place] [address] Mellissa Blanco PA-C [address] [place] [address] [place] [address] Scheduled Procedures Name Priority Associated Diagnoses Date/Ti me COLONOSCOPY FLEXIBLE PROXIMA L DIAGNOSTIC Recall Encounter for screening colonoscopy Scheduled Referrals Name Type Priority Associated Diagnoses Orde r Schedule MOHS SURGERY REFERRAL OP Referral Within 30 days (routine) BCC (basal cell carcinoma), face Ordered: 01/22/2024 Health Maintenance Due Date Last Done Comments DISCUSS TOBACCO CESSATION (REFER TO SMARTSET #2345) 1955 Cologuard 1998 Fecal Occult Blood Test [...] Documents on File Type Date Recorded Patient Family Services Worker Expl anation Power of Shipyard Painter Helper 01/11/2023 Porter Gregory POWER OF MACHINE DRILLER * Full Code (Latest Code Status on [...] Agents on File Name Relationship Healthcare [facility] Communication Porter Gregory Adult Child Health Care Agen t (per Health Care Power of Shipyard Painter Helper document) Care Teams Marketing Communications Associate Relationship Specialty Start Date End Date Ct Morales DO [address] [place] [address] PCP - General Family Medicine 12/31/23 documented as of this encounter
--- OUTSIDE RECORDS SUMMARY | 2024-04-20 08:52 | External Medical Summary | Summary of Care ---
Author Name Unknown Organization [facility] Address [address] [place] [address] Phone [phone] Care Team Providers Care Pit And Auxiliaries Supervisor Name Role Phone Ct Morales DO Primary Care Provider Reason for Referral * Evaluate & Treat - Unlimited Visits (Within 10 days (routine)) - Authorized Specialty Diagnoses / Procedures Referred By Mark kaufman Referred To Contact Physical Therapy / Physical Medicine And Rehab Diagnoses Unspecified displaced fracture of surgical neck of right humerus, subsequent encounter for fracture with routine healing Brunilda Valerio PA-C [address] [place] [address] Referral ID Status Reason Start Date Expiration Date Visits Requested Visits Authorized [id number] Authorized Specialty Services Required 01/26/[phone] Question Answer Referral Priority Within 10 days (routine) Where should this appointment be scheduled? [facility] Comments 1 month out from proximal humerus fracture Work on passive ROM through shoulder nothing above shoulder height Reason for Visit * Reason Comments Follow Up PT came in today for a follow up stating "its getting better". Right shoulder. DOI: 12/23/23. RHD Encounter Details Date Type Department Care Team (Latest Contact Info) Description 01/26/2024 1:00 PM EDT Office Visit Orthopaedics [facility] [address] [place] [address] Brunilda Valerio PA-C [address] [place] [address] Unspecified displaced fracture of surgical neck of right humerus, subsequent encounter for fracture with routine healing*; Arthralgia of right acromioclavicular joint Allergies No known active allergiesdocumented as of this encounter (statuses as of 01/27/2024) Medications Medication Sig Dispensed Refills Start Date [...] 125 mg by mouth daily. DC from [facility] 04/16/2018 Active metroNIDAZOLE 1 % External [...] as of this encounter (statuses as of 01/27/2024) Active Problems Problem Noted Date Diagnosed Date [...] as of this encounter (statuses as of 01/27/2024) Resolved Problems Problem Noted Date Diagnosed Date [...] as of this encounter (statuses as of 01/27/2024) Immunizations Name Administration Dates Next Due COVID-19 mRNA, LNP-s, No Pre serve, 2-Dose Series (Pfizer) 01/01/2022,07/12/2021,08/25/2020,07/14 COVID-19, MRNA-LNP, 23-24, P F, 30 MCG/0.3 mL, 12 YRS AND ABOVE, IM (ProRadis-ComirnatVisual Realm) 07/17/2023 Covid-19, Mrna, Lnp-s, Pf, B ivalent, [...] Progress Notes * Savage Bush DO - 01/27/2024 7:52 AM EDT I have reviewed the advanced practitioner's documentation on the date of service referenced in note, and I agree with, and take responsibility for the plan of care. * Brunilda Valerio PA-C - 01/26/2024 12:53 PM EDT Patient Name: Malika Gregory CHIEF COMPLAINT: Chief Complaint Patient presents with Follow Up PT came in today for a follow up stating "its getting better". Right shoulder. DOI: 12/23/23. RHD HISTORY OF PRESENT ILLNESS: Malika Gregory is a 68 year old female who presents to clinic today for right proximal humerus fracture follow up. Patient presents today unaccompanied. She reports date of injury was 12/23/2023 when she tripped on a pair of jeans on her way to the bathroom in her home. Patient has done well since her previous visit and has been removing her sling several times per day to work on range of motion through her elbow. Patient reports very minimal pain through her shoulder today. She was placed in a sling and told to be nonweightbearing through her right upper extremity, she has been compliant with these restrictions. We will obtain new x-rays of the shoulder today. Patient smokes about 1/2 pack of cigarettes per day. Nursing Notes: Shayna Murcia, [facility] 01/26/24 1249 Signed PT came in today for a follow up stating "its getting better". Right shoulder. DOI: 12/23/23. RHD Past Surgical History: Procedure Laterality Date BREAST BIOPSY Right unknown date; benign DELIVERY x 3 COLONOSCOPY, DIAGNOSTIC (RECTUM) 12/21/2015 diverticulosis, lipoma, repeat 10 yrs/COLONOSCOPY FLEXIBLE PROXIMAL DIAGNOSTIC performed by Jelly Jean Baptiste MD at [facility] COLONOSCOPY, DIAGNOSTIC (RECTUM) 11/15/2015 COLONOSCOPY FLEXIBLE PROXIMAL DIAGNOSTIC performed by Jaime Jean Baptiste MD at [facility] COLORECTAL CANCER SCREEN; COLON 2001 colonoscopy- 10 yrs CONIZATION OF CERVIX 01/1995 Dr Nick mei DENTAL SURGERY PROCEDURE NEC age 18 wisdom teeth x 4 EGD, FLEXIBLE, DIAGNOSTIC 12/21/2015 normal bx, HH/ESOPHAGOGASTRODUODENOSCOPY (EGD), FLEXIBLE, TRANSORAL, DIAGNOSTIC performed by Jaime Jean Baptiste MD at END[facility] EGD, FLEXIBLE, DIAGNOSTIC 05/27/2018 hiatal hernia/ESOPHAGOGASTRODUODENOSCOPY (EGD), FLEXIBLE, TRANSORAL, DIAGNOSTIC performed by Jaime Jean Baptiste MD at [facility] EGD, FLEXIBLE, DIAGNOSTIC N/A 01/20/2023 LA grade C reflux esophagitis/hiatal hernia/focal edema GEJ/ESOPHAGOGASTRODUODENOSCOPY (EGD), FLEXIBLE, TRANSORAL, DIAGNOSTIC performed by Barb Dunn MD at ENDOSCOPY [facility] EGD, FLEXIBLE, DIAGNOSTIC N/A 01/23/2023 submucosal nodule with small ulcer/biopsies show inflammation compatible with ascess/ESOPHAGOGASTRODUODENOSCOPY (EGD), FLEXIBLE, TRANSORAL, DIAGNOSTIC performed by Barb Dunn MD at OR [facility] EGD, FLEXIBLE, DIAGNOSTIC 06/22/2023 normal/ESOPHAGOGASTRODUODENOSCOPY (EGD), FLEXIBLE, TRANSORAL, DIAGNOSTIC performed by Barb Dunn MD at END[facility]COPY [facility] EGD, W/ENDOSCOPIC US 05/27/2018 normal/ESOPHAGOGASTRODUODENOSCOPY (EGD), FLEXIBLE, TRANSORAL, ENDOSCOPIC ULTRASOUND performed by Jaime Jean Baptiste MD at ENDOSCOPY [facility] EGD, W/ENDOSCOPIC US 11/18/2023 ESOPHAGOGASTRODUODENOSCOPY (EGD), FLEXIBLE, TRANSORAL, ENDOSCOPIC ULTRASOUND performed by Dawit Mckay MD at ENDOSCOPY [facility] EYE MUSCLE SURGERY FOLLOWUP age 3 and age 8 R eye INJECT DX/THER SUBSTANCE INTERLAMINAR LUMBAR/SACRAL W IMAGE GUIDE 12/31/2017 INJECTION SPINE LUMBAR OR SACRAL performed by Wellington Carlyle Huston DO at OR [facility] INJECT DX/THER SUBSTANCE INTERLAMINAR LUMBAR/SACRAL W IMAGE GUIDE 01/28/2018 INJECTION SPINE LUMBAR OR SACRAL performed by Riaz Huston DO at OR 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 ABIGAIL from [facility] metroNIDAZOLE 1 % External Gel (Metrogel) Apply topically to affected area 2 times a day. To affected area. 30 g 5 Pbntpcqibea-Azxbgrlpm-Itjzdg 100-62.5-25 MCG/ACT Aerosol Powder Breath Activated (Trelegy Ellipta) INHALE ONE PUFF BY MOUTH EVERY MORNING 180 Each 3 Atorvastatin Calcium 20 MG Oral Tablet (Lipitor) [...] and 1 Tablet beforebedtime. 200 Tablet 1 Varenicline Tartrate 1 MG Oral [...] HOURS NEEDED FOR WHEEZING. 18 g 2 No current facility-administered medications for this visit. 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 Tobacco Use Smoking status: Every Day Current packs/day: 0.50 Average packs/day: 0.5 packs/day for 50.2 years (25.1 ttl pk-yrs) Types: Cigarettes Start [...] transfusions: no exercise: Walking diet: Avoid caffiene muslim/protestant: no marital status: at age 32 children: [...] Stability Do you currently live in a jail or have no steady place to sleep [...] apparent abnormality AC Joint Prominence: negative Tenderness/Location: yes - proximal humerus NVI axillary/med/rad/uln nerve sensation grossly intact Shoulder ROM: AROM: Deferred Strength: Deferred due to fracture AIN/PIN/Uln N 5/5 IMAGING: XRAYS: right shoulder AP/grashey/scapular Y/axillary performed 01/26/2024 per my interpretation demonstrates healing comminuted displaced proximal humerus fracture ASSESSMENT: Malika is a 68 year old female with displaced proximal humerus fracture. S42.294A Other closed nondisplaced fracture of proximal end of right humerus, initial encounter PLAN: Patient seen and examined in clinic today. I personally reviewed the patient's imaging studies withthe patient during today's visit. Various treatment options were discussed. Patient will continue use of her sling but we discussed this should be removed several times a day to work on elbow range of motion and this was demonstrated during today's visit. We will begin her in formal physical therapy to work on passive range of motion through her shoulder. No active range of motion she will be performed through her shoulder at this time. All passive range of motion will be below shoulder height.Patient will continue to be nonweightbearing through her right upper extremity. Patient will followup in 4 weeks for re-evaluation with repeat x-rays. Patient expressed understanding and was in agreement with today's treatment plan. There are no Patient Instructions on file for this visit. [facility] [address] [facility] [place] [address] Orthopedic Sports Medicine Surgery 01/26/2024 This chart was completed in part utilizing [employer] Voice Recognition Software. Grammatical errors, random word [...] Nursing Notes * Shayna Murcia CMA - 01/26/2024 12:47 PM EDT PT came in today for a follow up stating "its getting better". Right shoulder. DOI: 12/23/23. RHD documented in this encounter Plan of Treatment Upcoming Encounters Date Type Department Care Team (Late st Contact Info) Description 02/05/2024 2:20 PM EDT Office Visit Family Practice [address] [facility] [place] [address] [place] [address] [address] Morales DO [address] [place] [address] 03/01/2024 2:00 PM EDT Office Visit [facility] [address] [facility] [place] [address] Brunilda Valerio PA-C [address] [place] [address] 04/05/2024 2:00 PM EDT Office Visit Hepatology, [facility] [address] [place] [address] Ashley Cheema MD [address] [place] [address] 07/19/2024 11:40 AM EST [facility] [address] [facility] [place] [address] Mellissa Blanco PA-C [address] [place] [address] [place] [address] Pending Results Name Type Priority Associated Diagnoses Date /Time XR SHOULDER, 2 OR MORE VIEWS Medical Imaging Routine Arthralgia of right acromioclavicular joint 01/26/2024 1:03 PM EDT Scheduled Procedures Name Priority Associated Diagnoses Date/Ti me COLONOSCOPY FLEXIBLE PROXIMA L DIAGNOSTIC Recall Encounter for screening colonoscopy Scheduled Referrals Name Type Priority Associated Diagnoses Orde r Schedule PHYSICAL THERAPY REFERRAL OP Referral Within 10 days (routine) Unspecified displaced fracture of surgical neck of right humerus, subsequent encounter for fracture with routine healing Ordered: 01/26/2024 Health Maintenance Due Date Last Done Comments DISCUSS TOBACCO CESSATION (REFER TO SMARTSET #[id number]) 1955 Cologuard 1998 Fecal Occult Blood Test [...] Cancer Screening 12/20/2025 Lipid Panel 06/14/2026 06/14/2021, 07/2016, 08/28/2015, Additional history exists DTaP,Tdap,and Td [...] as of this encounter Visit Diagnoses Diagnosis Unspecified displaced fracture of surgical neck of right humerus, subsequent encounter for fracture with routine healing- Primary Arthralgia of right acromioclavicular joint Pain in joint, shoulder region documented in this encounter Advance Directives Documents on File Type Date Recorded Patient Electronics Teacher Expl anation Power of Inspector Brake Lining 01/11/2023 Porter Gregory POWER OF SENIOR COURT OFFICE ASSISTANT * Full Code (Latest Code Status on [...] Agen t (per Health Care Power of Inspector Brake Lining document) Care Teams Pit And Auxiliaries Supervisor Relationship Specialty Start Date End Date Ct Morales DO [address] [place] [address] PCP - General Family Medicine 12/31/23 documented as of this encounter
--- OUTSIDE RECORDS SUMMARY | 2024-04-20 08:52 | External Medical Summary | Summary of Care ---
Author Name Unknown Organization [facility] Address [address] [place] [address] Phone [phone] Care Team Providers Care Design Transferrer Name Role Phone Andrew Ctravi Ramsey DO Primary Care Provider [phone] Reason for Referral * Evaluate & Treat - Unlimited Visits (Within 30 days (routine)) - Authorized Specialty Diagnoses / Procedures Referred By Mark kaufman Referred To Contact Dermatology Diagnoses BCC (basal cell carcinoma), face Deepak Miller MD [address] [facility] [place] [address] Referral ID Status Reason Start Date Expiration Date Visits Requested Visits Authorized [id number] Authorized Specialty Services Required 01/22/2024 1 1 [...] cheek, shave: Basal cell carcinoma Skin, Right adventism, shave: Basal cell carcinoma Encounter Details Date Type Department Care Team (Late st Contact Info) Description 01/22/2024 Telephone Dermatology [facility] [address] [place] [address] Deepak Miller MD [address] [facility] [place] [address] Allergies No known active allergiesdocumented as of [...] 125 mg by mouth daily. DC from [facility] 04/16/2018 Active metroNIDAZOLE 1 % External [...] mRNA, LNP-s, No Pre serve, 2-Dose Series (Vitaldent) 01/01/2022,07/12/2021,08/25/2020,07/14 COVID-19, MRNA-LNP, 23-24, P F, 30 [...] PM EDT Office Visit Family Practice [address] [facility] [place] 293 [facility], [place] [address] [address] Morales DO 293 [facility], [place] [address] 03/01/2024 2:00 PM EDT Office Visit Orthopaedics [facility] [address] [place] [address] Brunilda Valerio PA-C [address] [place] [address] 04/05/2024 2:00 PM EDT Office Visit Hepatology, [facility] [address] [place] [id number] Ashley Cheema MD [address] [place] [phone] 07/19/2024 11:40 AM EST [facility] [address] [facility] [address] Mellissa Blanco PA-C [address] [place] [address] [place] [phone] Scheduled Procedures Name Priority Associated Diagnoses Date/Ti me COLONOSCOPY FLEXIBLE PROXIMA L DIAGNOSTIC Recall Encounter for screening colonoscopy Scheduled Referrals Name Type Priority Associated Diagnoses Orde r Schedule MOHS SURGERY REFERRAL OP Referral Within 30 days (routine) BCC (basal cell carcinoma), face Ordered: 01/22/2024 Health Maintenance Due Date Last Done Comments DISCUSS TOBACCO CESSATION (REFER TO SMARTSET #[id number]) 1955 Cologuard 1998 Fecal Occult Blood Test [...] Documents on File Type Date Recorded Patient Lopper Expl anatdenys Power of Electronic Gluing Machine Operator 01/11/2023 Porter Gregory POWER OF CORPORATE QUALITY ASSURANCE MANAGER * Full Code (Latest Code Status [...] Agents on File Name Relationship Healthcare Agent [facility] p Communication Porter Gregory Adult Child Health Care Agen t (per Health Care Power of Electronic Gluing Machine Operator document) Care Teams Design Transferrer Relationship Specialty Start Date End Date Ct Morales DO [address] [place] [address] PCP - General Family Medicine 12/31/23 documented as of this encounter
--- OUTSIDE RECORDS SUMMARY | 2024-04-20 08:52 | External Medical Summary | Summary of Care ---
Author Name Unknown Organization [facility] Address [address] [place] [address] Phone [phone] Care Team Providers Care Concrete Mixer Loader Truck Mounted Name Role Phone Andrew Ctravi Ramsey DO Primary Care Provider Reason for Referral * Evaluate & Treat - Unlimited Visits (Within 30 days (routine)) - Authorized Specialty Diagnoses / Procedures Referred By Mark kaufman Referred To Contact Dermatology Diagnoses BCC (basal cell carcinoma), face Deepak Miller MD [address] [facility] [place] [address] Referral ID Status Reason Start Date Expiration Date Visits Requested Visits Authorized [id number] Authorized Specialty Services Required 01/22/2024 1 1 [...] cheek, shave: Basal cell carcinoma Skin, Right christianity, shave: Basal cell carcinoma Encounter Details Date Type Department Care Team (Late st Contact Info) Description 01/22/2024 Telephone Dermatology [facility] [address] [place] [address] [address] Deepak Miller MD [address] [facility] [place] [address] Allergies No known active allergiesdocumented as of [...] 125 mg by mouth daily. DC from [facility] 04/16/2018 Active metroNIDAZOLE 1 % External Gel [...] mRNA, LNP-s, No Pre serve, 2-Dose Series (Corindus) 01/01/2022,07/12/2021,08/25/2020,07/14 COVID-19, MRNA-LNP, 23-24, P F, 30 [...] 2:20 PM EDT Office Visit Family Practice [address] [place] [address] 293 [place] [address] [address] Morales DO 293 [place] [address] 03/01/2024 2:00 PM EDT Office Visit Orthopaedics [facility] 132 [facility] [place] [address] Brunilda Valerio PA-C 132 [facility] [place] [address] 04/05/2024 2:00 PM EDT Office Visit Hepatology, [facility] 132 [facility] [place] [address] Ashley Cheema MD [address] [place] [phone] 07/19/2024 11:40 AM EST [place] [address] [address] [facility] [place] [address] Mellissa Blanco PA-C [address] [place] [address] [place] [address] Scheduled Procedures Name Priority Associated Diagnoses Date/Ti me COLONOSCOPY FLEXIBLE PROXIMA L DIAGNOSTIC Recall Encounter for screening colonoscopy Scheduled Referrals Name Type Priority Associated Diagnoses Orde r Schedule MOHS SURGERY REFERRAL OP Referral Within 30 days (routine) BCC (basal cell carcinoma), face Ordered: 01/22/2024 Health Maintenance Due Date Last Done Comments DISCUSS TOBACCO CESSATION (REFER TO SMARTSET #1181) 1953 Cologuard 1998 Fecal Occult Blood Test [...] Documents on File Type Date Recorded Patient Director Of Payroll Expl anation Power of Injection Molder 01/11/2023 Porter Gregory POWER OF STRETCHER LEVELER OPERATOR HELPER * Full Code (Latest Code Status on [...] Agents on File Name Relationship [facility] Porter Gregory Adult Child Health Care Agen t (per Health Care Power of Injection Molder document) Care Teams Concrete Mixer Loader Truck Mounted Relationship Specialty Start Date End Date Ct Morales DO [address] [place] [address] PCP - General Family Medicine 12/31/23 documented as of this encounter
--- OUTSIDE RECORDS SUMMARY | 2024-04-20 08:53 | External Medical Summary | Summary of Care ---
Author Name Unknown Organization [facility] Address [address] [place] [address] Phone [phone] Care Team Providers Care Molecular Biology Scientist Name Role Phone Ct Morales DO Primary [...] Valerio PA-C [address] [place] [address] Referral ID Status Reason Start Date Expiration Date Visits Requested Visits Authorized [id number] Authorized Specialty Services Required 01/26/2024 999 999 [...] 01/26/2024 1:00 PM EDT Office Visit Orthopaedics [facility] [address] [place] [address] Brunilda Valerio PA-C [address] [place] [address] Unspecified displaced fracture of surgical neck of right humerus, subsequent encounter for fracture with routine healing*; Arthralgia of right acromioclavicular joint Allergies No known active allergiesdocumented as of this encounter (statuses as of 01/26/2024) Medications Medication Sig Dispensed Refills Start Date [...] by mouth daily. DC from [facility] 04/16/2018 Active metroNIDAZOLE 1 % External Gel [...] as of this encounter (statuses as of 01/26/2024) Active Problems Problem Noted Date Diagnosed Date [...] as of this encounter (statuses as of 01/26/2024) Resolved Problems Problem Noted Date Diagnosed Date [...] as of this encounter (statuses as of 01/26/2024) Immunizations Name Administration Dates Next Due COVID-19 mRNA, LNP-s, No Pre serve, 2-Dose Series (Pfizer) 01/01/2022,07/12/2021,08/25/2020,07/14 COVID-19, MRNA-LNP, 23-24, P F, 30 MCG/0.3 mL, 12 YRS AND ABOVE, IM ([employer]) 07/17/2023 Covid-19, Mrna, Lnp-s, Pf, B ivalent, [...] Progress Notes * Brunilda Valerio PA-C - 01/26/2024 12:53 [...] cigarettes per day. Nursing Notes: Shayna Murcia, LIQUOR TESTER 01/26/24 1249 Signed PT came in today for a follow up stating "its getting better". Right shoulder. DOI: 12/23/23. RHD Past Surgical History: Procedure Laterality Date BREAST BIOPSY Right unknown date; benign DELIVERY x 3 COLONOSCOPY, DIAGNOSTIC (RECTUM) 12/21/2015 diverticulosis, lipoma, repeat 10 yrs/COLONOSCOPY FLEXIBLE PROXIMAL DIAGNOSTIC performed by Jelly Jean Baptiste MD at ENDOSCOPY [facility] COLONOSCOPY, DIAGNOSTIC (RECTUM) 11/15/2015 COLONOSCOPY FLEXIBLE PROXIMAL DIAGNOSTIC performed by Jaime Jean Baptiste MD at [facility] COLORECTAL CANCER SCREEN; COLON 2001 colonoscopy- 8 yrs CONIZATION OF CERVIX 01/1995 Dr Nick mei DENTAL SURGERY PROCEDURE NEC age 18 wisdom teeth x 4 EGD, FLEXIBLE, DIAGNOSTIC 12/21/2015 normal bx, HH/ESOPHAGOGASTRODUODENOSCOPY (EGD), FLEXIBLE, TRANSORAL, DIAGNOSTIC performed by Jaime Jean Baptiste MD at ENDOSCOPY [facility] EGD, FLEXIBLE, DIAGNOSTIC 05/27/2018 hiatal hernia/ESOPHAGOGASTRODUODENOSCOPY (EGD), FLEXIBLE, TRANSORAL, DIAGNOSTIC performed by Jaime Jean Baptiste MD at [facility] EGD, FLEXIBLE, DIAGNOSTIC N/A 01/20/2023 LA grade C reflux esophagitis/hiatal hernia/focal edema GEJ/ESOPHAGOGASTRODUODENOSCOPY (EGD), FLEXIBLE, TRANSORAL, DIAGNOSTIC performed by Barb Dunn MD at ENDOSCOPY [facility] EGD, FLEXIBLE, DIAGNOSTIC N/A 01/23/2023 submucosal nodule with small ulcer/biopsies show inflammation compatible with ascess/ESOPHAGOGASTRODUODENOSCOPY (EGD), FLEXIBLE, TRANSORAL, DIAGNOSTIC performed by Barb Dunn MD at [facility] EGD, FLEXIBLE, DIAGNOSTIC 06/22/2023 normal/ESOPHAGOGASTRODUODENOSCOPY (EGD), FLEXIBLE, TRANSORAL, DIAGNOSTIC performed by Barb Dunn MD at [facility] EGD, W/ENDOSCOPIC US 05/27/2018 normal/ESOPHAGOGASTRODUODENOSCOPY (EGD), FLEXIBLE, TRANSORAL, ENDOSCOPIC ULTRASOUND performed by Jaime Jean Baptiste MD at ENDOSCOPY [facility] EGD, W/ENDOSCOPIC US 11/18/2023 ESOPHAGOGASTRODUODENOSCOPY (EGD), FLEXIBLE, TRANSORAL, ENDOSCOPIC ULTRASOUND performed by Dawit Mckay MD at ENDOSCOPY [facility] EYE MUSCLE SURGERY FOLLOWUP age 3 and age 8 R eye INJECT DX/THER SUBSTANCE INTERLAMINAR LUMBAR/SACRAL W IMAGE GUIDE 12/31/2017 INJECTION SPINE LUMBAR OR SACRAL performed by Riaz Huston DO at OR [facility] INJECT DX/THER SUBSTANCE INTERLAMINAR LUMBAR/SACRAL W IMAGE GUIDE 01/28/2018 INJECTION SPINE LUMBAR OR SACRAL performed by Riaz Huston DO at OR [facility] IR ASPIRATION ABSCESS/COLLECTION 01/27/2020 IR ASPIRATION ABSCESS/COLLECTION 01/23/2023 IR BIOPSY 10/27/2022 PARTIAL COLECTOMY W/ANASTOMOSIS N/A 01/14/2023 PARTIAL COLECTOMY WITH ANASTOMOSIS performed by Jeffrey Mesa MD at OR [facility] REMOVAL OF APPENDIX N/A 01/14/2023 APPENDECTOMY performed by Jeffrey Mesa MD at OR [facility] REMOVAL OF SMALL INTESTINE W/FUSION N/A 01/14/2023 ENTERECTOMY SMALL BOWEL RESECTION performed by Jeffrey Mesa MD at OR [facility] REMOVAL OF VULVA, 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 DC from [facility] metroNIDAZOLE 1 % External Gel (Metrogel) Apply topically to affected area 2 times a day. To affected area. 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 Brunilda Valerio PA-C Orthopaedics [address] [place] [address] Orthopedic Sports Medicine Surgery 01/26/2024 This chart was completed in part utilizing [employer] Voice Recognition Software. Grammatical errors, random [...] 2:20 PM EDT Office Visit Family Practice [address] [place] [address] [address] [place] [address] Ct Morales DO [address] [place] [address] 03/01/2024 2:00 PM EDT Office Visit Orthopaedics [facility] [address] [facility] [place] [address] Brunilda Valerio PA-C [address] [facility] [place] [address] 04/05/2024 2:00 PM EDT Office Visit Hepatology, [facility] [address] [facility] [place] [address] Ashley Cheema MD [address] [place] [address] [place] [phone] 07/19/2024 11:40 AM EST [place] [address] [address] [facility] [place] [address] Mellissa Blanco PA-C [address] [place] [address] [place] [address] Pending Results Name Type Priority Associated Diagnoses [...] Documents on File Type Date Recorded Patient Housing Installer Expl vanna Power of Geospatial Systems Integrator 01/11/2023 Porter Gregory POWER OF TWITCHELL OPERATOR * Full Code (Latest Code Status [...] Agents on File Name Relationship Healthcare Agent [facility] p Communication Porter Gregory Adult Child Health Care Agen t (per Health Care Power of Geospatial Systems Integrator document) Care Teams Molecular Biology Scientist Relationship Specialty Start Date End Date Ct Morales DO [address] [place] [address] PCP - General Family Medicine 12/31/23 documented as of this encounter
--- OUTSIDE RECORDS SUMMARY | 2024-04-20 08:53 | External Medical Summary | Summary of Care ---
Author Name Unknown Organization [facility] Address [address] [place] [address] Phone [phone] Care Team Providers Care Chief Of Production Name Role Phone Ct Christy DO Primary Care Provider Reason for Visit * Reason Comments NEW PATIENT Referred for nonheal ing lesion of nose, ?cystic lesion of cheek * Evaluate & Treat - Unlimited Visits (Within 3 days (urgent)) - Authorized Specialty Diagnoses / Procedures Referred By Contac t Referred To Contact Dermatology Diagnoses Non-healing skin lesion Ct Christy DO [address] [place] [address] Referral ID Status Reason Start Date Expiration Date Visits Requested Visits Authorized [id number] Authorized Specialty Services Required 11/06/[phone] Encounter Details Date Type Department Care Team (Late st Contact Info) Description 01/18/2024 8:30 AM EDT Office Visit Dermatology [facility] [place] [address] [place] [address] Deepak Miller MD [address] [place] [address] Skin neoplasm*; Actinic keratosis Allergies No known active allergiesdocumented as of this encounter (statuses as of 01/18/2024) Medications Medication Sig Dispensed Refills Start Date [...] 125 mg by mouth daily. DC from [facility] 04/16/2018 Active metroNIDAZOLE 1 % External Gel (Metrogel)Indicati ons:Perioral dermatitis Apply topically to affected area 2 times a day. To affected area. 30 g 5 10/09/2022 Active Albuterol Sulfate HFA 108 (90 Base) MCG/ACT Inhalation Aerosol SolutionIndication s:Wheezing,Tobacco use disorder INHALE 2 PUFFS EVERY 4 HOURS NEEDED FOR WHEEZING. 18 g 2 01/13/2023 Active Fluticasone-Umecli din-Vilant 100-62.5-25 MCG/ACT Aerosol Powder [...] on box.. 60 Tablet 3 10/26/2023 Active DULoxetine HCl 30 MG Oral Capsule Delayed [...] CUT,CRUSH OR CHEW 90 Tablet 01/11/2024 Active documented as of this encounter (statuses as of 01/18/2024) Active Problems Problem Noted Date Diagnosed Date [...] as of this encounter (statuses as of 01/18/2024) Resolved Problems Problem Noted Date Diagnosed Date [...] as of this encounter (statuses as of 01/18/2024) Immunizations Name Administration Dates Next Due COVID-19 mRNA, LNP-s, No Pre serve, 2-Dose Series ([employer]) 01/01/2022,07/12/2021,08/25/2020,07/14 COVID-19, MRNA-LNP, 23-24, P F, 30 [...] the money to buy more. Never true 01/05/20 24 Within the past 12 months, t [...] as of this encounter Progress Notes * Deepak Miller MD - 01/18/2024 8:36 AM EDT SUBJECTIVE: Chief Complaint: Chief Complaint Patient presents with NEW PATIENT Referred for nonhealing lesion of nose, ?cystic lesion of cheek HPI: Malika Gregory is a 68 year old female seen for several lesions on face Spot on nose present about a year. Used to be flat. Now raised. Bleeds Also has a spot on right cheek that bleeds. Scabbed over. Scab has come off at times. Also has a spot in left eyebrow that is new and itchy DERMATOLOGIC HISTORY: No prior history of skin concerns OBJECTIVE: GEN: Healthy, alert, no distress, appears oriented, pleasant, and cooperative SKIN: Problem focused exam reveals: A. Left upper forehead - 4mm violaceous/pink thin papule - acneiform/rosacea? R/o BCC B. Midnasal dorsum - 4mm translucent pink papule - bcc C. Right cheek - 1.2cm crusted and eroded pink plaque - bcc D. Right latter-day - 2.5cm atrophic white plaque with central pink papule - infiltrative bcc Left eyebrow, right neck - x2 gritty erythematous macules/papules ASSESSMENT/PLAN: Skin neoplasm(s) - Shave biopsy of the following lesion(s) A. Left upper forehead - 4mm violaceous/pink thin papule - acneiform/rosacea? R/o BCC B. Midnasal dorsum - 4mm translucent pink papule - bcc C. Right cheek - 1.2cm crusted and eroded pink plaque - bcc D. Right latter-day - 2.5cm atrophic white plaque with central pink papule - infiltrative bcc Procedure - Tangential biopsy of skin Biopsy by shave was recommended for the lesion(s) noted above to establish and confirm diagnosis. The procedure, risks, benefits, alternatives and expected outcomes were discussed with the patient and consent was obtained. Time out called. Patient identified, procedure verified, site(s) identified and verified. Patient and staff present in agreement. Area prepped with alcohol and anesthetized using 0.5% lidocaine with epinephrine at 1:200,000 concentration. Biopsy of lesion(s) performed. 20% AlCl and bandaging applied. Specimen(s) sent to pathology. Patient instructed in routine post-op care. Actinic keratosis -The diagnosis and malignant potential of the lesion was explained. Treatment options were reviewedincluding cryotherapy, topical medications, and observation. All questions were addressed. Procedure - Cryotherapy (Premalignant Destruction) -The patient would like to proceed with cryosurgery;Cryosurgery explained to the patient, consent obtained, patient, site and procedure verified, and then cryotherapy was performed with Liquid Nitrogen via cryo spray unit to 2 lesions. Location noted in physical exam. Post op course explained. -Discussed that if any of these lesions fail to completely resolve after treatment patient should call me for re-evaluation Deepak Miller MD Ref: CT CHRISTY[[id number]] [address] [place] [address] (office) [phone] (fax) PCP: CT CHRISTY [address] [facility] [place] [address] [phone] documented in this encounter Nursing Notes * Katerin Mccray LPN - 01/18/2024 8:31 AM EDT Patient identified by full name and date of . Chief Complaint Patient presents with NEW PATIENT Referred for nonhealing lesion of nose, ?cystic lesion of cheek documented in this encounter Plan of Treatment Upcoming Encounters Date Type Department Care Team (Late st Contact Info) Description 01/22/2024 11:30 AM EDT Telemedicine Family Practice [address] [place] [address] [address] [place] [address] College, Pharmacist [address] [place] [address] 01/26/2024 1:00 PM EDT Office Visit Orthopaedics [facility] 132 [place] [address] Brunilda Valerio PA-C [address] [place] [address] 02/05/2024 2:20 PM EDT Office Visit Family Practice [address] [place] [address] 293 [place] [address] Ct Christy DO 293 [facility] [place] [address] 04/05/2024 2:00 PM EDT Office Visit Hepatology, [facility] 132 [place] [address] Ashley Cheema MD [address] [place], [place] [address] [place] [id number] 07/19/2024 11:40 AM EST Office Visit Dermatology [place] [facility] [address] [place] [address] Mellissa Blanco PA-C [address] [place] [address] [place] [address] Pending Results Name Type Priority Associated Diagnoses Date /Time SURGICAL PATHOLOGY Pathology Routine Skin neoplasm 01/18/2024 8:52 AM EDT Scheduled Procedures Name Priority Associated Diagnoses Date/Ti me COLONOSCOPY FLEXIBLE PROXIMA L DIAGNOSTIC Recall Encounter for screening colonoscopy Health Maintenance Due Date Last Done Comments DISCUSS TOBACCO CESSATION (REFER TO [employer]ARTSET #[id number]) 1953 Cologuard 1998 Fecal Occult Blood Test [...] as of this encounter Visit Diagnoses Diagnosis Skin neoplasm- Primary Neoplasm of unspecified nature of bone, soft tissue, and skin Actinic keratosis documented in this encounter Advance Directives Documents on File Type Date Recorded Patient Executive Coordinator Expl anation Power of Commercial Loan Assistant 01/11/2023 Porter Gregory POWER OF STAVE CUTTING SUPERVISOR * Full Code (Latest Code Status on [...] Agen t (per Health Care Power of Commercial Loan Assistant document) Care Teams Chief Of Production Relationship Specialty Start Date End Date Ct Christy DO [address] [place] [address] PCP - General Family Medicine 12/31/23 documented as of this encounter
--- OUTSIDE RECORDS SUMMARY | 2024-04-20 08:53 | External Medical Summary | Summary of Care ---
Author Name Unknown Organization [facility] Address [address] [place] [address] Phone [phone] Care Team Providers Care Paint Prepper Name Role Phone Ct Morales DO Primary Care Provider Reason for Visit * Reason Comments NEW PATIENT Right humerus fractu re * Evaluate & Treat - Unlimited Visits (Within 30 days (routine)) - Authorized Specialty Diagnoses / Procedures Referred By Mark kaufman Referred To Contact Sports Medicine / Orthopedics Diagnoses Other closed nondisplaced fracture of proximal end of right humerus, initial encounter Sharer, Felicity Roberts PA-C [address] [place] [address] Referral ID Status Reason Start Date Expiration Date Visits Requested Visits Authorized [id number] Authorized Specialty Services Required 12/25/[phone] Encounter Details Date Type Department Care Team (Late st Contact Info) Description 01/12/2024 11:00 AM EDT Office Visit Orthopaedics [facility] [address] [place] [address] Brunilda Valerio PA-C [address] [place] [address] Other closed nondisplaced fracture of proximal end of right humerus, initial encounter* Allergies No known active allergiesdocumented as of this encounter (statuses as of 01/13/2024) Medications Medication Sig Dispensed Refills Start Date [...] as of this encounter (statuses as of 01/13/2024) Active Problems Problem Noted Date Diagnosed Date [...] as of this encounter (statuses as of 01/13/2024) Resolved Problems Problem Noted Date Diagnosed Date [...] as of this encounter (statuses as of 01/13/2024) Immunizations Name Administration Dates Next Due COVID-19 mRNA, LNP-s, No Pre serve, 2-Dose Series (ShedWorx) 01/01/2022,07/12/2021,08/25/2020,07/14 COVID-19, MRNA-LNP, 23-24, P F, 30 MCG/0.3 mL, 12 YRS AND ABOVE, IM ([email or web address]) 07/17/2023 Covid-19, Mrna, Lnp-s, Pf, B ivalent, [...] Progress Notes * Savage Bush DO - 01/13/2024 11:47 AM EDT I have reviewed the advanced practitioner's documentation on the date of service referenced in note, and I agree with, and take responsibility for the plan of care. * Brunilda Valerio PA-C - 01/12/2024 11:39 AM EDT Patient Name: Malika Gregory CHIEF COMPLAINT: Chief Complaint Patient presents with NEW PATIENT Right humerus fracture HISTORY OF PRESENT ILLNESS: Malika Gregory is a 68 year old female who presents to clinic today for right proximal humerus fracture follow up. Patient presents today unaccompanied. Patient was initially seen for this issue on the Orthopedic urgent Care clinic seen by Felicity Lugo PA-C. She reports date of injury was 12/23/2023 when she tripped on a pair of jeans on her way to the bathroom in her home. Patient reports very minimal pain through her shoulder today. She was placed in a sling and told to be nonweightbearing through her right upper extremity, she has been compliant with these restrictions. Patient smokes about 1/2 pack of cigarettes per day. Nursing Notes: Jerardo Fishman, LIZA 01/12/24 1108 Signed Right arm. DOI: 12/23/23. Right hand dominant. Tripped on a pair of jeans on her way to the bathroom. Went to med [employer] on 12/23 and saw Lindsay in urgent care 12/24. In a sling. Repeat xrays. No painwhen just sitting, but when she bends over to grab something she feels discomfort. Past Surgical History: Procedure Laterality Date BREAST BIOPSY Right unknown date; benign DELIVERY x 3 COLONOSCOPY, DIAGNOSTIC (RECTUM) 12/21/2015 diverticulosis, lipoma, repeat 10 yrs/COLONOSCOPY FLEXIBLE PROXIMAL DIAGNOSTIC performed by Jelly Jean Baptiste MD at ENDOSCOPY [facility] COLONOSCOPY, DIAGNOSTIC (RECTUM) 11/15/2015 COLONOSCOPY FLEXIBLE PROXIMAL DIAGNOSTIC performed by Jaime Jean Baptiste MD at [facility] COLORECTAL CANCER SCREEN; COLON 2001 colonoscopy- 8 yrs CONIZATION OF CERVIX 01/[address] Nick white DENTAL SURGERY PROCEDURE NEC age 18 wisdom teeth x 4 EGD, FLEXIBLE, DIAGNOSTIC 12/21/2015 normal bx, HH/ESOPHAGOGASTRODUODENOSCOPY (EGD), FLEXIBLE, TRANSORAL, DIAGNOSTIC performed by Jaime Jean Baptiste MD at [facility] EGD, FLEXIBLE, DIAGNOSTIC 05/27/2018 hiatal hernia/ESOPHAGOGASTRODUODENOSCOPY (EGD), FLEXIBLE, TRANSORAL, DIAGNOSTIC performed by Jaime Jean Baptiste MD at [facility] EGD, FLEXIBLE, DIAGNOSTIC N/A 01/20/2023 LA grade C reflux esophagitis/hiatal hernia/focal edema GEJ/ESOPHAGOGASTRODUODENOSCOPY (EGD), FLEXIBLE, TRANSORAL, DIAGNOSTIC performed by Barb Dunn MD at [facility] EGD, FLEXIBLE, DIAGNOSTIC N/A 01/23/2023 submucosal nodule with small ulcer/biopsies show inflammation compatible with ascess/ESOPHAGOGASTRODUODENOSCOPY (EGD), FLEXIBLE, TRANSORAL, DIAGNOSTIC performed by Barb Dunn MD at [facility] EGD, FLEXIBLE, DIAGNOSTIC 06/22/2023 normal/ESOPHAGOGASTRODUODENOSCOPY (EGD), FLEXIBLE, TRANSORAL, DIAGNOSTIC performed by Barb Dunn MD at [facility] EGD, W/ENDOSCOPIC US 05/27/2018 normal/ESOPHAGOGASTRODUODENOSCOPY (EGD), FLEXIBLE, TRANSORAL, ENDOSCOPIC ULTRASOUND performed by Jaime Jean Baptiste MD at ENDOSCOPY [facility] EGD, W/ENDOSCOPIC US 11/18/2023 ESOPHAGOGASTRODUODENOSCOPY (EGD), FLEXIBLE, TRANSORAL, ENDOSCOPIC ULTRASOUND performed by Dawit Mckay MD at ENDOSCOPY [facility] EYE MUSCLE SURGERY FOLLOWUP age 3 and age 8 R eye INJECT DX/THER SUBSTANCE INTERLAMINAR LUMBAR/SACRAL W IMAGE GUIDE 12/31/2017 INJECTION SPINE LUMBAR OR SACRAL performed by Riaz Carlyle Huston DO at OR [facility] INJECT DX/THER SUBSTANCE INTERLAMINAR LUMBAR/SACRAL W IMAGE GUIDE 01/28/2018 INJECTION SPINE LUMBAR OR SACRAL performed by Riaz Huston, at OR [facility] IR ASPIRATION ABSCESS/COLLECTION 01/27/2020 IR ASPIRATION ABSCESS/COLLECTION 01/23/2023 IR BIOPSY 10/27/2022 PARTIAL COLECTOMY W/ANASTOMOSIS N/A 01/14/2023 PARTIAL COLECTOMY WITH ANASTOMOSIS performed by Jeffrey Mesa MD at OR [facility] REMOVAL OF APPENDIX N/A 01/14/2023 APPENDECTOMY performed by Jeffrey Mesa MD at OR [facility] REMOVAL OF SMALL INTESTINE W/FUSION N/A 01/14/2023 ENTERECTOMY SMALL BOWEL RESECTION performed by Jeffrey Mesa MD at OR [facility] REMOVAL OF VULVA, PARTIAL 01/1995 [...] day. To affected area. 30 g 5 Albuterol Sulfate HFA 108 (90 Base) MCG/ACT Inhalation Aerosol Solution INHALE 2 PUFFS EVERY 4 HOURS NEEDED FOR WHEEZING. 18 g 2 Hajoovxffvz-Deeglerwe-Nwdboh 100-62.5-25 MCG/ACT Aerosol Powder Breath Activated (Trelegy [...] As directed on box.. 60 Tablet 3 DULoxetine HCl 30 MG [...] NOT CUT,CRUSH OR CHEW 90 Tablet 0 No current facility-administered medications for this visit. [...] transfusions: no exercise: Walking diet: Avoid caffiene hindu/anabaptism: no marital status: at age 32 children: [...] Stability Do you currently live in a [place] or have no steady place to sleep [...] sensation grossly intact Shoulder ROM: AROM: Deferred PROM: deferred Strength: Deferred due to fracture AIN/PIN/Uln N 11/14 IMAGING: XRAYS: right shoulder AP/grashey/scapular Y/axillary performed 01/12/2024 per my interpretation demonstrates comminuted displaced proximal humerus fracture ASSESSMENT: Malika [...] and this was demonstrated during today's visit. Patient will continue to be nonweightbearing through her right upper extremity. Patient will follow up in 2- 3 weeks with new xrays of the shoulder and anticipate at that time may begin gentle passive range of motion through the shoulder. Patient expressed understanding and was in agreement with today's treatment plan. There are no Patient Instructions on file for this visit. Brunilda Valerio PA-C Orthopaedics [address] [place] [address] Orthopedic Sports Medicine Surgery 01/12/2024 11:39 AM This chart was completed in part utilizing [employer] Speech Voice Recognition Software. Grammatical errors, random [...] documented in this encounter Nursing Notes * Jerardo Fishman ATC - 01/12/2024 11:05 AM EDT Right arm. DOI: 12/23/23. Right hand dominant. Tripped on a pair of jeans on her way to the bathroom. Went to [employer] on 12/23 and saw Lindsay in urgent care 12/24. In a sling. Repeat xrays. No painwhen just sitting, but when she bends over to grab something she feels discomfort. documented in this encounter Plan of Treatment Upcoming Encounters Date Type Department Care Team (Late st Contact Info) Description 01/18/2024 8:30 AM EDT Office Visit Dermatology [facility] [address] [facility] [place] [address] Deepak Miller MD [address] [facility] [place] [address] 01/22/2024 11:30 AM EDT Telemedicine Family Practice 65 [facility] 293 [facility], [place] [address] College, Pharmacist [address], [place] [address] 01/26/2024 1:00 PM EDT Office Visit Orthopaedics [facility] 132 [facility] [place] [address] Brunilda Valerio PA-C 132 [facility] [place] [address] 02/05/2024 2:20 PM EDT Office Visit Family Practice [address] [place] 293 [place] [phone] Ct Morales DO 293 [facility] [place] [address] 04/05/2024 2:00 PM EDT Office Visit Hepatology, [facility] 132 [facility] [place] [address] Ashley Cheema MD [address] [place] [id number] Pending Results Name Type Priority Associated Diagnoses Date /Time XR HUMERUS 2 OR MORE VIEWS Medical Imaging Routine 01/12/2024 11:16 AM EDT XR SHOULDER, 2 OR MORE VIEWS Medical Imaging Routine Other closed nondisplaced fracture of proximal end of right humerus, initial encounter 01/12/2024 11:46 AM EDT Scheduled Procedures Name Priority Associated Diagnoses Date/Ti me COLONOSCOPY FLEXIBLE PROXIMA L DIAGNOSTIC Recall Encounter for screening colonoscopy Health Maintenance Due Date Last Done Comments DISCUSS TOBACCO CESSATION (REFER TO SMARTSET #5972) 1955 Cologuard 1998 Fecal Occult Blood Test [...] of proximal end of right humerus, initial encounter- Primary documented in this encounter Advance Directives Documents on File Type Date Recorded Patient Last Ironer Expl anation Power of Business Line Manager 01/11/2023 Porter Gregory POWER OF CALIBRATION TESTER * Full Code (Latest Code Status on [...] Agents on File Name Relationship Healthcare Agent [facility] Communication Porter Gregory Adult Child Health Care Roberto Carlosn t (per Health Care Power of Business Line Manager document) Care Teams Paint Prepper Relationship Specialty Start Date End Date Ct Morales DO 293 [facility] [place] [address] PCP - General Family Medicine 12/31/23 documented as of this encounter
--- OUTSIDE RECORDS SUMMARY | 2024-04-20 08:53 | External Medical Summary | Summary of Care ---
Author Name Unknown Organization [facility] Address [address] [place] [address] Phone [phone] Care Team Providers Care Electrical Engineering Teacher Name Role Phone Ct Christy DO Primary Care Provider Reason for Visit * Reason Onset Date Comments Medication Refill 01/21/2024 Encounter Details Date Type Department Care Team (Late st Contact Info) Description 01/21/2024 Refill Family Practice [address], [place] [address] [place] [address] Ct Christy DO [address] [place] [address] Wheezing; Tobacco use disorder Allergies No known active allergiesdocumented as of this encounter (statuses as of 01/22/2024) Medications Medication Sig Dispensed Refills Start Date [...] 125 mg by mouth daily. DC from [facility] 04/16/2018 Active metroNIDAZOLE 1 % External Gel (Metrogel)Indicat ions:Perioral dermatitis Apply topically to affected area 2 times a day. To affected area. 30 g 5 10/09/2022 Active Fluticasone-Umecl idin-Vilant 100-62.5-25 MCG/ACT Aerosol Powder [...] FOR WHEEZING. 18 g 2 01/21/2024 Active Albuterol Sulfate HFA 108 (90 Base) MCG/ACT Inhalation Aerosol SolutionIndicatio ns:Wheezing,Tobac co use disorder INHALE 2 PUFFS EVERY 4 HOURS NEEDED FOR WHEEZING. 18 g 2 01/13/2023 Discontinue d(Refill) documented as of this encounter (statuses as of 01/22/2024) Active Problems Problem Noted Date Diagnosed Date [...] as of this encounter (statuses as of 01/22/2024) Resolved Problems Problem Noted Date Diagnosed Date [...] as of this encounter (statuses as of 01/22/2024) Immunizations Name Administration Dates Next Due COVID-19 mRNA, LNP-s, No Pre serve, 2-Dose Series ([employer]) 01/01/2022,07/12/2021,08/25/2020,07/14 COVID-19, MRNA-LNP, 23-24, P F, 30 MCG/0.3 mL, 12 YRS AND ABOVE, IM (Dympol-Comirnaty) 07/17/2023 Covid-19, Mrna, Lnp-s, Pf, B ivalent, [...] No 07/17/2023 Does the household have a presbyterian kaseman hospitallar source of income? (Household - for ages [...] encounter Miscellaneous Notes * Telephone Encounter - Jody Hickman PHARM Tech - 01/22/2024 8:20 AM EDT Received fax for refill - duplicate req. ThanksJody Polysomnography Technologist III [facility] ([facility]) 01/22/2024,8:20 AM * Telephone Encounter - Fareed Peter RP - 01/21/2024 1:57 PM EDTSigned Prescriptions: Disp Refills Albuterol Sulfate HFA 108 (90 Base) MCG/AC*18 g 2 Sig: INHALE 2 PUFFS EVERY 4 HOURS NEEDED FOR WHEEZING. Authorizing Provider: CT CHRISTY User: FAREED PETER * Telephone Encounter - Micaela Lloyd PHARM Tech - 01/21/2024 1:31 PM EDT Pt out of med, asking high priority. Did you pend patient's preferred pharmacy and medication before forwarding?yes Pharmacy: [id number] [address] [place] [address] Pending Prescriptions: Disp Refills Albuterol Sulfate HFA 108 (90 Base) MCG/A*18 g 2 Sig: INHALE 2 PUFFS EVERY 4 HOURS NEEDED FOR WHEEZING. Last Visit: 11/06/2023 (in office), 01/01/2024 (telemedicine) Next Visit: 01/22/2024 If no future appointments scheduled, and last appointment is greater than a year ago, please schedule patient for a follow-up appointment Last date the medication was ordered: 01/13/23 Is this request for a controlled substance?No [...] AM HGBA1C 5.8 (H) 02/06/2020 12:40 PM documented in this encounter Plan of Treatment Upcoming Encounters Date Type Department Care Team (Late st Contact Info) Description 01/22/2024 11:30 AM EDT Telemedicine Family Practice 65 [facility] [address] College, Pharmacist [address] [address] 01/26/2024 1:00 PM EDT Office Visit [facility]opaed[facility] [address] Brunilda Valerio PA-C 132 [facility] [place] [address] 02/05/2024 2:20 PM EDT Office Visit Family Practice [address] [place] [address] [place] [address] Ct Christy DO 293 [place] [address] 04/05/2024 2:00 PM EDT Office Visit Hepatology, [facility] 132 [facility] [address] Ashley Cheema MD [address] [place] [address] 07/19/2024 11:40 AM EST Office Visit Dermatology[address] [address] Mellissa Blanco PA-C [address] [place] [address] [place] [address] Scheduled Procedures Name Priority Associated Diagnoses Date/Ti me COLONOSCOPY FLEXIBLE PROXIMA L DIAGNOSTIC Recall Encounter for screening colonoscopy Health Maintenance Due Date Last Done Comments DISCUSS TOBACCO CESSATION (REFER TO SMARTSET #0253) 1955 Cologuard 1998 Fecal Occult Blood Test [...] as of this encounter Visit Diagnoses Diagnosis Wheezing Tobacco use disorder documented in this encounter Advance Directives Documents on File Type Date Recorded Patient Care Manager Cna Expl anation Power of Tankage Grinder 01/11/2023 Porter Gregory POWER OF EVENT DECORATOR AND DESIGNER * Full Code (Latest Code Status on [...] Agen t (per Health Care Power of Tankage Grinder document) Care Teams Electrical Engineering Teacher Relationship Specialty Start Date End Date Ct Christy DO 293 [place] [address] PCP - General Family Medicine 12/31/23 documented as of this encounter
--- OUTSIDE RECORDS SUMMARY | 2024-04-20 08:53 | External Medical Summary | Summary of Care ---
Author Name Unknown Organization [facility] Address [address] [place] [address] Phone [phone] Care Team Providers Care Rehabilitation Psychologist Name Role Phone Ct Morales DO Primary [...] Roberts PA-C [address] [place] [address] Referral ID Status Reason Start Date Expiration Date Visits Requested Visits Authorized [id number] Authorized Specialty Services Required 12/25/[phone] Encounter Details Date Type Department Care Team (Late st Contact Info) Description 01/12/2024 11:00 AM EDT Office Visit Orthopaedics [facility] [address] [place] [address] Brunilda Valerio PA-C [address] [place] [address] Other closed nondisplaced fracture of proximal end of right humerus, initial encounter* Allergies No known active allergiesdocumented as of this encounter (statuses as of 01/12/2024) Medications Medication Sig Dispensed Refills Start Date [...] 125 mg by mouth daily. DC from [facility] 04/16/2018 Active metroNIDAZOLE 1 % External [...] as of this encounter (statuses as of 01/12/2024) Active Problems Problem Noted Date Diagnosed Date [...] as of this encounter (statuses as of 01/12/2024) Resolved Problems Problem Noted Date Diagnosed Date [...] as of this encounter (statuses as of 01/12/2024) Immunizations Name Administration Dates Next Due COVID-19 mRNA, LNP-s, No Pre serve, 2-Dose Series (Handpressions) 01/01/2022,07/12/2021,08/25/2020,07/14 COVID-19, MRNA-LNP, 23-24, P F, 30 MCG/0.3 mL, 12 YRS AND ABOVE, IM ([facility] 07/17/2023 Covid-19, Mrna, Lnp-s, Pf, [...] Progress Notes * Brunilda Valerio PA-C - 01/12/2024 11:39 [...] cigarettes per day. Nursing Notes: Jerardo Fishman, ATC 01/12/24 1108 Signed Right arm. DOI: 12/23/23. Right hand dominant. Tripped on a pair of jeans on her way to the bathroom. Went to [employer] on 12/23 and saw Lindsay in urgent [...] by Jelly Jean Baptiste MD at ENDOSCOPY [facility] COLONOSCOPY, DIAGNOSTIC (RECTUM) 11/15/2015 COLONOSCOPY FLEXIBLE PROXIMAL DIAGNOSTIC performed by Jaime Jean Baptiste MD at [facility] COLORECTAL CANCER SCREEN; COLON 2001 colonoscopy- 8 yrs CONIZATION OF CERVIX 01/[address] DENTAL SURGERY PROCEDURE NEC age 18 wisdom teeth x 4 EGD, FLEXIBLE, DIAGNOSTIC 12/21/2015 normal bx, HH/ESOPHAGOGASTRODUODENOSCOPY (EGD), FLEXIBLE, TRANSORAL, DIAGNOSTIC performed by Jaime Jean Baptiste MD at [facility] EGD, FLEXIBLE, DIAGNOSTIC 05/27/2018 hiatal hernia/ESOPHAGOGASTRODUODENOSCOPY (EGD), FLEXIBLE, TRANSORAL, DIAGNOSTIC performed by Jaime Jean Baptiste MD at [facility] EGD, FLEXIBLE, DIAGNOSTIC N/A 01/20/2023 LA grade C reflux esophagitis/hiatal hernia/focal edema GEJ/ESOPHAGOGASTRODUODENOSCOPY (EGD), FLEXIBLE, TRANSORAL, DIAGNOSTIC performed by Barb Dunn MD at [facility] EGD, FLEXIBLE, DIAGNOSTIC N/A 01/23/2023 submucosal nodule with small ulcer/biopsies show inflammation compatible with ascess/ESOPHAGOGASTRODUODENOSCOPY (EGD), FLEXIBLE, TRANSORAL, DIAGNOSTIC performed by Barb Dunn MD at [facility] EGD, FLEXIBLE, DIAGNOSTIC 06/22/2023 normal/ESOPHAGOGASTRODUODENOSCOPY (EGD), FLEXIBLE, TRANSORAL, DIAGNOSTIC performed by Barb Dunn MD at [facility] EGD, W/ENDOSCOPIC US 05/27/2018 normal/ESOPHAGOGASTRODUODENOSCOPY (EGD), FLEXIBLE, TRANSORAL, ENDOSCOPIC ULTRASOUND performed by Jaime Jean Baptiste MD at [facility] EGD, W/ENDOSCOPIC US 11/18/2023 ESOPHAGOGASTRODUODENOSCOPY (EGD), FLEXIBLE, TRANSORAL, ENDOSCOPIC ULTRASOUND performed by Dawit Mckay MD at [facility] EYE MUSCLE SURGERY FOLLOWUP age 3 and age 8 R eye INJECT DX/THER SUBSTANCE INTERLAMINAR LUMBAR/SACRAL W IMAGE GUIDE 12/31/2017 INJECTION SPINE LUMBAR OR SACRAL performed by Riaz Huston DO at OR [facility] INJECT DX/THER SUBSTANCE INTERLAMINAR LUMBAR/SACRAL W IMAGE GUIDE 01/28/2018 INJECTION SPINE LUMBAR OR SACRAL performed by Riaz Huston DO at OR [facility] IR ASPIRATION ABSCESS/COLLECTION 01/27/2020 IR ASPIRATION ABSCESS/COLLECTION 01/23/2023 IR BIOPSY 10/27/2022 PARTIAL COLECTOMY W/ANASTOMOSIS N/A 01/14/2023 PARTIAL COLECTOMY WITH ANASTOMOSIS performed by Jeffrey [facility]a MD at [facility] REMOVAL OF APPENDIX N/A 01/14/2023 APPENDECTOMY performed by [facility] REMOVAL OF SMALL INTESTINE W/FUSION N/A 01/14/2023 ENTERECTOMY SMALL BOWEL RESECTION performed by Jeffrey Mesa MD at [facility] REMOVAL OF VULVA, 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 DC from [facility] metroNIDAZOLE 1 % External Gel (Metrogel) Apply topically to affected area 2 times a day. To affected area. 30 g 5 Albuterol Sulfate HFA 108 (90 Base) MCG/ACT Inhalation Aerosol Solution INHALE 2 PUFFS EVERY 4 HOURS NEEDED FOR WHEEZING. 18 g 2 Tutzbxojnbs-Ckcbvmtcp-Ykaxho 100-62.5-25 MCG/ACT Aerosol Powder Breath Activated (Trelegy [...] transfusions: no exercise: Walking diet: Avoid caffiene congregational/baptist: no marital status: at age 32 children: [...] Stability Do you currently live in a alf or have no steady place to sleep [...] for this visit. Brunilda Valerio PA-C [address]opaedics [address] [place] [address] Orthopedic Sports Medicine Surgery 01/12/2024 11:39 AM This chart was completed in part utilizing [employer] Speech Voice Recognition Software. Grammatical errors, random [...] way to the bathroom. Went to [facility] [employer] on 12/23 and saw Lindsay in urgent care 12/24. In a sling. Repeat xrays. No painwhen just sitting, but when she bends over to grab something she feels discomfort. documented in this encounter Plan of Treatment Upcoming Encounters Date Type Department Care Team (Late st Contact Info) Description 01/18/2024 8:30 AM EDT Office Visit Dermatology [facility] [place] [address] Deepak Miller MD 200 [facility] [place] [address] 01/22/2024 11:30 AM EDT Telemedicine Family Practice [address] [place] [address] 293 [place] [phone] College, Pharmacist 65 [facility] 293 [place] [address] 01/26/2024 1:00 PM EDT Office Visit Orthopaedics [facility] 132 [facility] [address] [place] [address] Brunilda Valerio PA-C 132 [facility] [place] [address] 02/05/2024 2:20 PM EDT Office Visit Family Practice 65 [facility] 293 [facility], [place] [phone] Ct Morales DO 293 [place] [address] 04/05/2024 2:00 PM EDT Office Visit Hepatology, [facility] [address] [place] [address] Ashley Cheema MD [address] [place] [address] Pending Results Name Type Priority Associated Diagnoses [...] Comments DISCUSS TOBACCO CESSATION (REFER TO SMARTSET #1817) 1953 Cologuard 1998 Fecal Occult Blood Test [...] Documents on File Type Date Recorded Patient Renal Dialysis Technician Expl anation Power of Groundskeeper Supervisor 01/11/2023 Portre Gregory POWER OF GLASS HANDLER * Full Code (Latest Code Status on [...] Agen t (per Health Care Power of Groundskeeper Supervisor document) Care Teams Rehabilitation Psychologist Relationship Specialty Start Date End Date Ct Morales DO 293 [facility] [place] [address] PCP - General Family Medicine 12/31/23 documented as of this encounter
--- OUTSIDE RECORDS SUMMARY | 2024-04-20 08:53 | External Medical Summary | Summary of Care ---
Author Name Unknown Organization [facility] Address [address] [place] [address] Phone [phone] Care Team Providers Care Sales Operations Assistant Name Role Phone Ct Christy DO Primary Care Provider Reason for Visit * Reason Comments Medication Refill Encounter Details Date Type Department Care Team (Late st Contact Info) Description 01/10/2024 Refill Family Practice [address] [place] [address] [place] [address] Ct Christy DO [address] [place] [address] Encounter for long-term (current) use of medications*; Colonic diverticular abscess; Liver abscess Allergies No known active allergiesdocumented as of this encounter (statuses as of 01/15/2024) Medications Medication Sig Dispensed Refills Start Date [...] 125 mg by mouth daily. DC from [facility] 04/16/2018 Active metroNIDAZOLE 1 % External Gel (Metrogel)Indicat ions:Perioral dermatitis Apply topically to affected area 2 times a day. To affected area. 30 g 5 10/09/2022 Active Albuterol Sulfate HFA 108 (90 Base) MCG/ACT Inhalation Aerosol SolutionIndicatio ns:Wheezing,Tobac co use disorder INHALE 2 PUFFS EVERY 4 HOURS NEEDED FOR WHEEZING. 18 g 2 01/13/2023 Active Fluticasone-Umecl idin-Vilant 100-62.5-25 MCG/ACT Aerosol Powder [...] CUT,CRUSH OR CHEW 90 Tablet 01/11/2024 Active Pantoprazole Sodium 20 MG Oral Tablet Delayed Release (Protonix)Indicat ions:Colonic diverticular abscess,Liver abscess TAKE ONE TABLET BY MOUTH IN THE MORNING 30 MINUTES BEFORE THE FIRST MEAL OF THE DAY . DO NOT CUT,CRUSH OR CHEW 90 Tablet 1 07/16/2023 Discontinue d(Refill) documented as of this encounter (statuses as of 01/15/2024) Active Problems Problem Noted Date Diagnosed Date [...] as of this encounter (statuses as of 01/15/2024) Resolved Problems Problem Noted Date Diagnosed Date [...] as of this encounter (statuses as of 01/15/2024) Immunizations Name Administration Dates Next Due COVID-19 mRNA, LNP-s, No Pre serve, 2-Dose Series ([employer]) 01/01/2022,07/12/2021,08/25/2020,07/14 COVID-19, MRNA-LNP, 23-24, P F, 30 MCG/0.3 mL, 12 YRS AND ABOVE, IM ([employer]ne.ws-Comirnaty) 07/17/2023 Covid-19, Mrna, Lnp-s, Pf, B ivalent, [...] * Telephone Encounter - Paulie Cordero - 01/15/2024 6:29 PM EDT Received message from [facility] regarding patient needing labs. Patient was notified. Successfully contacted patient and provided [facility] message. * Telephone Encounter - Erick Kwok [facility] - 01/11/2024 11:40 AM EDT Signed Prescriptions: Disp Refills Pantoprazole Sodium 20 MG Oral Tablet Syl*90 Tab*0 Sig: TAKE ONE TABLET BY MOUTH IN THE MORNING 30 MINUTES BEFORE THE FIRST MEAL OF THE DAY . DO NOT CUT,CRUSH OR CHEWAuthorizing Provider: CT CHRISTY User: ERICK KWOK * Telephone Encounter - Erick Kwok [facility] - 01/11/2024 11:34 AM EDT Provided 90 days supply with 0 refill(s) until upcoming appointment. Per refill protocol patient should have routine labs on file within past year. Reviewed AMP report, Care Gaps/Health Maintenance, medications list, and for any routine labs typically ordered for this patient. Lab orders placed. Please contact patient to advise of labs ordered for blood draw. Recommend patient to fast if able for labs. Patient may still have water and regular medications. Advise to obtain labs before requesting the next refill. Thank You, Erick Kwok, Pharm-D Clinical Pharmacist [facility] [phone] 01/11/2024, 11:40 AM documented in this encounter Plan of Treatment Upcoming Encounters Date Type Department Care Team (Late st Contact Info) Description 01/18/2024 8:30 AM EDT Office Visit Dermatology [facility] 200 [facility] [place] [address] Deep[facility] [address] 01/22/2024 11:30 AM EDT Telemedicine Family [address] 293 [facility] [place] [address] College, Pharmacist [address] [place] [address], [place] [address] 01/26/2024 1:00 PM EDT Office Visit Orthopaedics [facility] 132 [place] [address] Brunilda Valerio PA-C 132 [facility] [place] [address] 02/05/2024 2:20 PM EDT Office Visit Family Practice 65 [facility] 293 [place] [address] Ct Christy DO 293 [facility] [place] [address] 04/05/2024 2:00 PM EDT Office Visit Hepatology, [facility] 132 [place] [address] Ashley Cheema MD [address] [place] [address] Scheduled Orders Name Type Priority Associated Diagnoses Orde r Schedule HEMOGLOBIN A1C Lab Routine Encounter for long-term (current) use of medications Expected: 01/12/2024 (Approximate), Expires: 01/10/2025 VITAMIN B12 Lab Routine Encounter for long-term (current) use of medications Expected: 01/12/2024 (Approximate), Expires: 01/10/2025 MAGNESIUM Lab Routine Encounter for long-term (current) use of medications Expected: 01/12/2024 (Approximate), Expires: 01/10/2025 COMPREHENSIVE METABOLIC PANEL Lab Routine Encounter for long-term (current) use of medications Expected: 01/12/2024 (Approximate), Expires: 01/10/2025 CBC WITH WBC DIFFERENTIAL Lab Routine Encounter for long-term (current) use of medications Expected: 01/12/2024 (Approximate), Expires: 01/10/2025 LIPID PANEL WITH DIRECT LDL IF TG IS HIGH Lab Routine Encounter for long-term (current) use of medications Expected: 01/12/2024 (Approximate), Expires: 01/10/2025 Scheduled Procedures Name Priority Associated Diagnoses Date/Ti me COLONOSCOPY FLEXIBLE PROXIMA L DIAGNOSTIC Recall Encounter for screening colonoscopy Health Maintenance Due Date Last Done Comments DISCUSS TOBACCO CESSATION (REFER TO SMARTSET #[id number]) 1955 Cologuard 1998 Fecal Occult Blood Test [...] as of this encounter Visit Diagnoses Diagnosis Encounter for long-term (current) use of medications- Primary Encounter for long-term (current) use of other medications Colonic diverticular abscess Abscess of intestine Liver abscess Abscess of liver documented in this encounter Advance Directives Documents on File Type Date Recorded 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
--- OUTSIDE RECORDS SUMMARY | 2024-04-20 08:53 | External Medical Summary | Summary of Care ---
Author Name Unknown Organization [facility] Address [address] [place] [address] Phone [phone] Care Team Providers Care Hands Assembler Name Role Phone Ct Morales DO Primary Care Provider [phone] Reason for Visit * Reason Comments Dosage Adjustment Via Phone (anticoag Cl inic) Smoking Cessation Encounter Details Date Type Department Care Team (Late st Contact Info) Description 01/22/2024 11:30 AM EDT Telemedicine Family Practice 65 [facility] 293 [place] [address] College, Pharmacist [address] [address] Tobacco use*; COPD, group C, by GOLD 2017 classification ([facility]) Allergies No known active allergiesdocumented as of [...] mg by mouth daily. DC from [facility] 04/16/2018 Active metroNIDAZOLE 1 % External Gel [...] 08/28/2015 11/20/2015 Screen for colon cancer 08/28/2015 0702/2022 Need for shingles vaccine 06/17/2013 Neck swelling [...] mRNA, LNP-s, No Pre serve, 2-Dose Series ([employer]) 01/01/2022,07/12/2021,08/25/2020,07/14 COVID-19, MRNA-LNP, 23-24, P F, 30 [...] No 07/17/2023 Does the household have a [facility] source of income? (Household - for ages [...] as of this encounter Progress Notes * Naifvitaliy Glendy Gina Vincent, [facility] - 01/22/2024 12:10 PM EDT Patient Phone Numbers After connecting to the patient via telephone, the patient was identified by name and date of . Patient was then informed that this was a telephone call only visit. The patient agreed to participate. Visit Disposition: Routine follow-up Total call duration was 13 minutes. Medication Therapy Disease Management - Smoking Cessation HPI: Social History Tobacco Use Smoking Status Every Day Current packs/day: 0.50 Average packs/day: 0.5 packs/day for 50.2 years (25.1 ttl pk-yrs) Types: Cigarettes Start date: 12/10/1972 Last attempt to quit: 12/10/2022 Passive exposure: Past Smokeless Tobacco Never Objective: BP Readings from Last 3 Encounters: 11/18/23 123/68 11/06/23 130/76 07/17/23 128/80 Pulse Readings from Last 3 Encounters: 11/18/23 76 11/06/23 94 07/17/23 90 Wt Readings from Last 3 Encounters: 11/18/23 72.6 kg (160 lb) 11/06/23 75.5 kg (166 lb 6.4 oz) 07/17/23 71.9 kg (158 lb 9.6 oz) Assessment & Plan: Tobacco Use Disorder - Patient stopped Chantix 1 mg BID on own. Reports she's homebound now. Also saw dermatology and may have skin cancer, so she's worried about that. Stress has been high and she doesn't feel she can quit at this time. Notes that she stopped using Chantix because she felt as though she had hit a plateau and is still smoking 10 cigarettes. Primarily smokes in the living room, had been smoking on the balcony however its been so hot, she can't. Discussed engaging in activities in other rooms to keep out of her primary smoking area. Reports games and jigsaw puzzle are in dining room, so discussed trying to spend more time there to avoid smoking. Encouraged pt to set a goal but she states she's not sure she's ready to quit at this time. Will follow up in 2 weeks to check in with PCP visit. Pt was educated on smoking cessation and/or tobacco cessation for: 20 minutes Tobacco Cessation Counseling Attempt: first Start Date: 01/22/24 Today's Visit #: 4 Follow up: 2 weeks with PCP documented in this encounter Plan of Treatment Upcoming Encounters Date Type Department Care Team (Late st Contact Info) Description 01/26/2024 1:00 PM EDT Office Visit Orthopaedics [facility] 132 [facility] [place] [address] Brunilda Valerio PA-C 132 [facility] [place] [address] 02/05/2024 2:20 PM EDT Office Visit Family Practice [address] [place] [address] 293 [place] [address] Ct Morales DO 293 [place] [address] 04/05/2024 2:00 PM EDT Office Visit Hepatology, [facility] 132 [facility] [place] [address] Ashley Cheema MD [address] [place] [address] 07/19/2024 11:40 AM EST Office Visit Dermatology[address] [place] [address] Mellissa Blanco, IRON [address] [place] [address] [place] [address] Scheduled Procedures Name Priority Associated Diagnoses Date/Ti [...] as of this encounter Visit Diagnoses Diagnosis Tobacco use- Primary Tobacco use disorder COPD, group C, by GOLD 2017 classification ([facility]) documented in this encounter Advance Directives Documents on File Type Date Recorded 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
--- OUTSIDE RECORDS SUMMARY | 2024-04-20 08:53 | External Medical Summary | Summary of Care ---
Author Name Unknown Organization [facility] Address [address] [place] [address] Phone [phone] Care Team Providers Care Crown Attacher Name Role Phone Ct Christy DO Primary Care Provider Reason for Visit * Reason Onset Date Comments Medication Refill 01/21/2024 Encounter Details Date Type Department Care Team (Late st Contact Info) Description 01/21/2024 Refill Family Practice [address], [place] [address] [place] [address] Ct Christy DO [address] [place] [address] Wheezing; Tobacco use disorder Allergies No known active allergiesdocumented as of this encounter (statuses as of 01/21/2024) Medications Medication Sig Dispensed Refills Start Date [...] 125 mg by mouth daily. DC from [facility] 04/16/2018 Active metroNIDAZOLE 1 % External Gel [...] as of this encounter (statuses as of 01/21/2024) Active Problems Problem Noted Date Diagnosed Date [...] as of this encounter (statuses as of 01/21/2024) Resolved Problems Problem Noted Date Diagnosed Date [...] as of this encounter (statuses as of 01/21/2024) Immunizations Name Administration Dates Next Due COVID-19 mRNA, LNP-s, No Pre serve, 2-Dose Series ([place]) 01/01/2022,07/12/2021,08/25/2020,07/14 COVID-19, MRNA-LNP, 23-24, P F, 30 MCG/0.3 mL, 12 YRS AND ABOVE, IM ([employer]-Comirnaty) 07/17/2023 Covid-19, Mrna, Lnp-s, Pf, B ivalent, [...] No 07/17/2023 Does the household have a [facility] source [facility] income? (Household - for [...] encounter Miscellaneous Notes * Telephone Encounter - Fareed Peter RPh - 01/21/2024 1:57 PM EDTSigned Prescriptions: Disp Refills Albuterol Sulfate HFA 108 (90 Base) MCG/AC*18 g 2 Sig: INHALE 2 PUFFS EVERY 4 HOURS NEEDED FOR WHEEZING. Authorizing Provider: CT CHRISTY User: FAREED PETER * Telephone Encounter - Micaela Lloyd, shredded filler hopper feeder - 01/21/2024 1:31 PM EDT Pt out of med, asking high priority. Did you pend patient's preferred pharmacy and medication before forwarding?yes Pharmacy: [id number] [address] [place] [address] Pending Prescriptions: Disp Refills Albuterol Sulfate HFA [...] 01/22/2024 11:30 AM EDT Telemedicine Family Practice [address] [place] [address] 293 [place] [address] College, Pharmacist [address] [place] [address] [place] [address] 01/26/2024 1:00 PM EDT Office Visit Orthopaedics [facility] 132 [place] [address] Brunilda Valerio PA-C 132 [place] [address] 02/05/2024 2:20 PM EDT Office Visit Family Practice [address] [place] 293 [place] [place] [address] Ct Christy DO 293 [facility] [place] [address] 04/05/2024 2:00 PM EDT Office Visit Hepatology, [facility] 132 [facility] [place] [address] Ashley Cheema MD [address] [place] [id number] 07/19/2024 11:40 AM EST Office Visit Dermatology[address] [address] Mellissa Blanco PA-C [address] [place] [address] [place] [phone] Scheduled Procedures Name Priority Associated Diagnoses Date/Ti me COLONOSCOPY FLEXIBLE PROXIMA L DIAGNOSTIC Recall Encounter for screening colonoscopy Health Maintenance Due Date Last Done Comments DISCUSS TOBACCO CESSATION (REFER TO SMARTSET #7794) 1955 Cologuard 1998 Fecal Occult Blood Test [...] Documents on File Type Date Recorded 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
--- OUTSIDE RECORDS SUMMARY | 2024-04-20 08:53 | External Medical Summary | Summary of Care ---
Author Name Unknown Organization [facility] Address [address] [place] [address] Phone [phone] Care Team Providers Care Manager Of Sustainability Name Role Phone Andrew Ctravi Ramsey DO Primary Care Provider Reason for Referral * Evaluate & Treat - Unlimited Visits (Within 30 days (routine)) - Authorized Specialty Diagnoses / Procedures Referred By Mark kaufman Referred To Contact Dermatology Diagnoses BCC (basal cell carcinoma), face Deepka Miller MD [address] [facility] [place] [address] Referral ID Status Reason Start Date Expiration Date Visits Requested Visits Authorized [id number] Authorized Specialty Services Required 01/22/2024 1 1 [...] cheek, shave: Basal cell carcinoma Skin, Right worship, shave: Basal cell carcinoma Encounter Details Date Type Department Care Team (Late st Contact Info) Description 01/22/2024 Telephone Dermatology [facility] [address] [place] [address] Deepak Miller MD [address] [facility] [place] [address] Allergies No known active allergiesdocumented as of [...] 125 mg by mouth daily. DC from [facility] 04/16/2018 Active metroNIDAZOLE 1 % External Gel [...] mRNA, LNP-s, No Pre serve, 2-Dose Series ([employer]) 01/01/2022,07/12/2021,08/25/2020,07/14 COVID-19, MRNA-LNP, 23-24, P F, [...] 01/26/2024 1:00 PM EDT Office Visit Orthopaedics [facility] 132 [facility] [place] [address] Brunilda Valerio PA-C 132 [facility] [place] [address] 02/05/2024 2:20 PM EDT Office Visit Family Practice [address] [place] [address] 293 [place] [address] Ct Morales DO 293 [place] [address] 04/05/2024 2:00 PM EDT Office Visit Hepatology, [facility] [address] [place] [address] Ashley Cheema MD [address] [place] [phone] 07/19/2024 11:40 AM EST [place] [address] [address] [facility] [place] [address] Mellissa Blanco PA-C [address] [place] [address] [place] [address] Scheduled Procedures Name Priority Associated Diagnoses Date/Ti me COLONOSCOPY FLEXIBLE PROXIMA L DIAGNOSTIC Recall Encounter for screening colonoscopy Scheduled Referrals Name Type Priority Associated Diagnoses Orde r Schedule MOHS SURGERY REFERRAL OP Referral Within 30 days (routine) BCC (basal cell carcinoma), face Ordered: 01/22/2024 Health Maintenance Due Date Last Done Comments DISCUSS TOBACCO CESSATION (REFER TO SMARTSET #2449) 1955 Cologuard 1998 Fecal Occult Blood Test [...] Documents on File Type Date Recorded 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
--- OUTSIDE RECORDS SUMMARY | 2024-04-20 08:54 | External Medical Summary | Summary of Care ---
Author Name Unknown Organization [facility] Address [address] [place] [address] Phone [phone] Care Team Providers Care Personnel Coordinator Name Role Phone Ct Morales DO Primary Care Provider Reason for Visit * Reason Comments Dosage Adjustment Via Phone (anticoag Cl inic) Smoking Cessation Encounter Details Date Type Department Care Team (Late st Contact Info) Description 01/01/2024 11:30 AM EDT Telemedicine Family Practice 65 [facility] [address] [place] [address] College, Pharmacist [address] [address] Tobacco use*; Tobacco abuse; COPD, group C, by GOLD 2017 classification ([facility]) Allergies No known active allergiesdocumented as of this encounter (statuses as of 01/01/2024) Medications Medication Sig Dispensed Refills Start Date End Date Status DAILY VALUE MULTIVITAMIN PO TABS Take by mouth at bedtime. 1 Tab 0 3 Active CALCIUM 500 MG PO TABS Take 600 mg by mouth at bedtime. 1 Tab 0 3 Active folic acid 1 MG Tablet Take 1 Tablet by mouth in the morning. 30 Tab 11 8 Active Vitamin D, Cholecalciferol, 1000 units CAPS Take 1 Capsule by mouth in the morning. \\. 8 Active magnesium chloride ER (MAG-64) 64 MG TBECIndications: Hospital discharge follow-up,Sepsis , due to unspecified organism,Alcohol use,Hypomagnesem ia Take 125 mg by mouth daily. DC from [facility] 8 Active metroNIDAZOLE 1 % External Gel (Metrogel)Indica tions:Perioral dermatitis Apply topically to affected area 2 times a day. To affected area. 30 g 5 3 Active Albuterol Sulfate HFA 108 (90 Base) MCG/ACT Inhalation Aerosol SolutionIndicati ons:Wheezing,Tob acco use disorder INHALE 2 PUFFS EVERY 4 HOURS NEEDED FOR WHEEZING. 18 g 2 3 Active Fluticasone-Umec lidin-Vilant 100-62.5-25 MCG/ACT Aerosol Powder Breath Activated (Trelegy Ellipta) INHALE ONE PUFF BY MOUTH EVERY MORNING 180 Each 3 3 Active Atorvastatin Calcium 20 MG Oral Tablet (Lipitor)Indicat ions:Dyslipidemi a, goal LDL below 100 Take 1 Tablet by mouth in the morning. 100 Tablet 3 3 Active Famotidine 20 MG Oral Tablet (Pepcid) TAKE ONE TABLET BY MOUTH IN THE MORNING AND TAKE ONE TABLET BY MOUTH BEFORE BEDTIME 180 Tablet 1 3 06/16/20 24 Active Additional Information Patient taking differently: Takes at bedtime only., Reported on 07/17/2023 Pantoprazole Sodium 20 MG Oral Tablet Delayed Release (Protonix)Indica tions:Colonic diverticular abscess,Liver abscess TAKE ONE TABLET BY MOUTH IN THE MORNING 30 MINUTES BEFORE THE FIRST MEAL OF THE DAY . DO NOT CUT,CRUSH OR CHEW 90 Tablet 1 4 Active Gabapentin 600 MG Oral Tablet (Neurontin)Indic ations:Paresthes ias Take 1 Tablet by mouth in the morning and 1 Tablet before bedtime. 200 Tablet 1 4 Active Varenicline Tartrate 1 MG Oral TabletIndication s:Tobacco abuse Take 1 Tablet by mouth in the morning and 1 Tablet before bedtime. As directed on box.. 60 Tablet 3 4 Active DULoxetine HCl 30 MG Oral Capsule Delayed Release Particles (Cymbalta)Indica tions:Major depressive disorder, recurrent episode, moderate (HCC),Paresthesi as Take 1 Capsule by mouth in the morning do not cut, crush or chew. 100 Capsule 1 4 Active Thiamine HCl 100 MG Oral Tablet (vitamin B-1) Take 1 Tablet by mouth in the morning. 90 Tablet 1 4 Active LORazepam 1 MG Oral Tablet (Ativan)Indicati ons:Generalized anxiety disorder Take 1/2 to 1 tablet three times a day as needed 60 Tablet 4 Active Varenicline Tartrate (Starter) 0.5 MG X 11 & 1 MG X 42 Tablet Therapy PackIndications: Tobacco abuse Take by mouth 0.5 mg once daily for 3 days then increase to 0.5 mg twice daily for 4 days then increase to 1 mg twice daily 1 Each 4 01/01/20 24 Discontinued Nicotine Polacrilex 2 MG Mouth/Throat Gum (Nicorette)Indic ations:Tobacco abuse,Cigarette smoker,Tobacco use Take 1 piece by mouth every hour as needed for cravings. Max=24 pieces per day 100 Each 3 4 01/01/20 24 Discontinued([facility] Up) documented as of this encounter (statuses as of 01/01/2024) Active Problems Problem Noted Date Diagnosed Date [...] as of this encounter (statuses as of 01/01/2024) Resolved Problems Problem Noted Date Diagnosed Date [...] as of this encounter (statuses as of 01/01/2024) Immunizations Name Administration Dates Next Due COVID-19 mRNA, LNP-s, No Pre serve, 2-Dose Series ([employer]) 01/01/2022,07/12/2021,08/25/2020,07/14 COVID-19, MRNA-LNP, 23-24, P F, 30 [...] as of this encounter Progress Notes * Alexandra Leon, [facility] - 01/01/2024 9:38 AM EDT After connecting to the patient via telephone, the patient was identified by name and date of . Patient was then informed that this was a telephone call only visit. The patient agreed to participate. Visit Disposition: Routine follow-up Total call duration was 14 minutes. Medication Therapy Disease Management - Smoking [...] oz) Assessment & Plan: Tobacco Use Disorder -Chantix 1 mg BID -Willing to try new behavioral techniques (see below) Notes tripped on her way to the bathroom on a pair of jeans and broke her arm last Thursday. Denies hitting her head. Currently using splint and following with ortho. Notes she will be wearing splint for 6-8 weeks and states it impacted her lifestyle as she can't drive. Reviewed safety with pt regarding getting a night light in the hallway/bathroom. Notes still using Chantix and she has no made progress due to acute stress. Still smoking 10 CPD and tolerating Chantix well. Notes the sudden change in her situation has got her down. Pt tried the nicotine gum once but "didn't like it" due to peppery taste and ultimately stopped taking it. Mellisa tried lozenges in the past and the taste was worse but she tried that a long time ago. Educated pt that lozenges are usually more tolerable in terms of taste. Pt states she would like to hold offon lozenges for now. 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 Use to throw her cigarettes acrossthe room but now with her arm she is not able to bend as well. Notes she is willing to place cigarettes in a drawer to see if this helps using "out of sight out of mind" method. Notes still using lolipops when she has cravings. Also open to utilizing plain gum or toothpicks. Discussed hand to mouthmotion. Encouraged pt to set a goal but pt states goal at this time is to place cigarettes out of sight. Will follow up in 3 weeks to check in. Pt was educated on smoking cessation and/or tobacco cessation for: 20 minutes Tobacco Cessation Counseling Attempt: first Start Date: 11/20/23 Today's Visit #: 3 (max 4) Follow up: 3 weeks Alexandra Leon RPh Clinical Pharmacist Medication Therapy Disease Management 12/11/2023, 11:53 AM documented in this encounter Plan of Treatment Upcoming Encounters Date Type Department Care Team (Late st Contact Info) Description 01/12/2024 11:00 AM EDT Office Visit Orthopaedics [address] [place] [address] Brunilda Valerio PA-C 132 [facility] [place] [address] 01/18/2024 8:30 AM EDT Office Visit Dermatology [facility] [address] [facility] [address] Deepak Miller MD [address] [facility] [address] 01/22/2024 11:30 AM EDT Telemedicine Family Practice [address] [place] [address] [address] [place] [phone] College, Pharmacist [address] [place] [address] 02/05/2024 2:20 PM EDT Office Visit Family Practice [address] [place] [address] [address] [place] [phone] Ct Morales DO [address] [place] [address] 04/05/2024 2:00 PM EDT Office Visit Hepatology, [facility] 132 [facility] [place] [address] Ashley Cheema MD [address] [place] [id number] Scheduled Procedures Name Priority Associated Diagnoses Date/Ti me COLONOSCOPY FLEXIBLE PROXIMA L DIAGNOSTIC Recall Encounter for screening colonoscopy Health Maintenance Due Date Last Done Comments DISCUSS TOBACCO CESSATION (REFER TO SMARTSET #0547) 1955 Cologuard 1998 Fecal Occult Blood Test 1998 Sigmoidoscopy 1998 Hepatitis B (1 of 3 - Risk 3-dose series) 2013 *ADVANCE DIRECTIVE NOT ON FILE 01/20/2022 COVID-19 Vaccine ( season) 2023 07/17/2023, 01/08/2023, 06/25/2022, Additional history exists Mammogram 01/01/2024 12/31/2022, 12/12, 10/18/2021, Additional history exists HbA1c 01/16/2024 01/15/2023, 08/13, 06/14/2021, Additional history exists GFR 01/26/2024 01/25/2023, 01/10, 01/23/2023, Additional history exists Depression Monitoring 07/17/2024 07/17/2023 [...] 08/01/2011 Zoster Vaccines Completed 01/17/2022, 07/14, 01/06/2016 Influenza Vaccine (FLU shot) Completed , 04/16/2022, 06/14/2021, Additional history exists GARDASIL-HPV IMMUNIZATION SERIES Aged Out No longer eligible based on patient's age to complete this topic MENINGOCOCCAL (MENACTRA/MENVEO) Aged Out No longer eligible based on patient's age to complete this topic documented as of this encounter Medical Devices Not on filedocumented as of this encounter Visit Diagnoses Diagnosis Tobacco use- Primary Tobacco use disorder Tobacco abuse Tobacco use disorder COPD, group C, by GOLD 2017 classification (HCC) documented in this encounter Advance Directives Documents on File Type Date Recorded Patient Track Man Expl anation Power of Tech Writer 01/11/2023 Porter Gregory POWER OF GLASS BEVELLER * Full Code (Latest Code Status on [...] Agen t (per Health Care Power of Tech Writer document) Care Teams Personnel Coordinator Relationship Specialty Start Date End Date Ct Morales DO [address] [place] [id number] PCP - General Family Medicine 12/31/23 documented as of this encounter
--- OUTSIDE RECORDS SUMMARY | 2024-04-20 08:54 | External Medical Summary | Summary of Care ---
Author Name Unknown Organization [facility] Address [address] [place] [address] Phone [phone] Care Team Providers Care Sighter Name Role Phone Ct Christy DO Primary Care Provider Reason for Visit * Reason Onset Date Comments Medication Refill 12/28/2023 Encounter Details Date Type Department Care Team (Late st Contact Info) Description 12/28/2023 Refill Family Practice [address] [place] [address] [place] [address] Ct Christy DO [address] [place] [address] Generalized anxiety disorder Allergies No known active allergiesdocumented as of this encounter (statuses as of 12/29/2023) Medications Medication Sig Dispensed Refills Start Date [...] 125 mg by mouth daily. DC from [facility] 04/16/2018 Active metroNIDAZOLE 1 % External Gel [...] CUT,CRUSH OR CHEW 90 Tablet 1 07/16/2023 Active Gabapentin 600 MG Oral Tablet (Neurontin)Indica tions:Paresthesia s Take 1 Tablet by mouth in the morning and 1 Tablet before bedtime. 200 Tablet 1 07/17/2023 Active Varenicline Tartrate 1 MG Oral TabletIndications :Tobacco abuse Take 1 Tablet by mouth in the morning and 1 Tablet before bedtime. As directed on box.. 60 Tablet 3 10/26/2023 Active Varenicline Tartrate (Starter) 0.5 MG X 11 & 1 MG X 42 Tablet Therapy PackIndications:T obacco abuse Take by mouth 0.5 mg once daily for 3 days then increase to 0.5 mg twice daily for 4 days then increase to 1 mg twice daily 1 Each 10/26/2023 Active DULoxetine HCl 30 MG Oral Capsule Delayed Release Particles (Cymbalta)Indicat ions:Major depressive disorder, recurrent episode, moderate (HCC),Paresthesia s Take 1 Capsule by mouth in the morning do not cut, crush or chew. 100 Capsule 1 11/07/2023 Active Thiamine HCl 100 MG Oral Tablet (vitamin B-1) Take 1 Tablet by mouth in the morning. 90 Tablet 1 11/06/2023 Active Nicotine Polacrilex 2 MG Mouth/Throat Gum (Nicorette)Indica tions:Tobacco abuse,Cigarette smoker,Tobacco use Take 1 piece by mouth every hour as needed for cravings. Max=24 pieces per day 100 Each 3 11/20/2023 Active Additional Information Patient not taking.Reported on 12/25/2023 LORazepam 1 MG Oral Tablet (Ativan)Indicatio ns:Generalized anxiety disorder Take 1/2 to 1 tablet three times a day as needed 60 Tablet 12/29/2023 Active LORazepam 1 MG Oral Tablet (Ativan)Indicatio ns:Generalized anxiety disorder Take 1/2 to 1 tablet three times a day as needed 60 Tablet 09/29/2023 Discontinue d(Refill) documented as of this encounter (statuses as of 12/29/2023) Active Problems Problem Noted Date Diagnosed Date [...] as of this encounter (statuses as of 12/29/2023) Resolved Problems Problem Noted Date Diagnosed Date Resolved Date Portal vein thrombosis 04/16/201809/14 Hematuria 04/02/2018 01/17/2022 Spasm of lumbar paraspinous muscle 07/16/2017 01/17/2022 Bilateral sacroiliitis 07/16/201708/01 Acute respiratory failure with hypoxia 11/20/2015 01/17/2022 Fatty liver 08/28/2015 11/20/2015 Screen for colon cancer 08/28/201502/2022 Need for shingles vaccine 06/17/2013 Neck swelling [...] 100 08/01/2011 08/28/2015 Bilateral dry eyes 08/01/2011 02/16/201 6 HTN, goal below 140/90 08/01/201103/04 Overview: [...] as of this encounter (statuses as of 12/29/2023) Immunizations Name Administration Dates Next Due COVID-19 mRNA, LNP-s, No Pre serve, 2-Dose Series ([employer]) 01/01/2022,07/12/2021,08/25/2020,07/14 COVID-19, MRNA-LNP, 23-24, P F, 30 [...] money to get more. Never true 07/17/2023 Sex and Gender Information Value Date [...] Telephone Encounter - Ct Christy DO - 12/29/2023 8:53 AM EDTSigned Prescriptions: Disp Refills LORazepam 1 MG Oral Tablet (Ativan) 60 Tab*0 Sig: Take 1/2 to 1 tablet three times a day as neededAuthorizing Provider: CT CHRISTY * Telephone Encounter - Ct Christy DO - 12/29/2023 8:52 AM EDT Rx sent. * Telephone Encounter - [facility] - 12/28/2023 1:15 PM EDTPending Prescriptions: Disp Refills LORazepam 1 MG Oral Tablet (Ativan) 60 Tab*0 Sig: Take 1/2 to 1 tablet three times a day as needed * Telephone Encounter - [facility]ophy [facility] - 12/28/2023 1:15 PM EDT I have reviewed the patients controlled substance dispensing history in the Prescription Drug Monitoring Program in compliance with the [facility] regulations before prescribing a controlled substance. PDMP checked on 12/28/2023. Pending Prescriptions: Disp Refills LORazepam 1 MG Oral Tablet (Ativan) 60 Tab*0 Sig: Take 1/2 to 1 tablet three times a day as needed Last Visit: 11/06/2023 (in office), 12/11/2023 (telemedicine) Next Visit: 01/01/2024 Date medication was last filled: 09/29/23 Date medication is due for refill: 10/19/23 Pharmacy: [id number] [address] [facility] Is this request for a controlled substance? Yes and Urine Drug Screen Not completed Toxicology results: No results found. However, due to the size of the patient record, not all encounters were searched.Please check Results Review for a complete set of results. Please approve if appropriate. Thank You, [facility] Clinical Pharmacist [facility] ([facility]) [phone] 12/28/2023, 1:15 PM * Telephone Encounter - [facility] - 12/28/2023 1:02 PM EDT Pt is almost out of rx. Did you pend patient's preferred pharmacy and medication before forwarding?yes Pharmacy: [id number] [address] [facility] Pending Prescriptions: Disp Refills LORazepam 1 MG Oral Tablet (Ativan) 60 Tab*0 Sig: Take 1/2 to 1 tablet three times a day as needed Last Visit: 11/06/2023 (in office), 12/11/2023 (telemedicine) Next Visit: 01/01/2024 If no future appointments scheduled, and last appointment is greater than a year ago, please schedule patient for a follow-up appointment Last date the medication was ordered: 09/29/2023 Is this request for a controlled substance?Yes, What was the last refill date 09/29/2023 w/ [email or web address] and dosage 1 and Urine Drug Screen Not completed Urine Drug Screen:No results found. However, due [...] 01/01/2024 11:30 AM EDT Telemedicine Family Practice [address] [place] [address] 293 [place] [phone] College, Pharmacist [address] [place] [address] [place] [address] 01/12/2024 11:00 AM EDT Office Visit Orthopaedics [facility] 132 [facility] [place] [address] Brunilda Valerio PA-C [facility] [address] 01/18/2024 8:30 AM EDT Office Visit Dermatology [facility] 200 [facility] [place] [address] Deepak Miller MD 200 [facility] [place], [place] [address] 02/05/2024 2:20 PM EDT Office Visit Family Practice [address] [place] [address] [facility] [phone] [address] Christy DO 293 [place] [address] 04/05/2024 2:00 PM EDT Office Visit Hepatology, [facility] 132 [facility] [place] [address] Ashley Cheema MD [address] [place] [address] Scheduled Procedures Name Priority Associated Diagnoses Date/Ti me COLONOSCOPY FLEXIBLE PROXIMA L DIAGNOSTIC Recall Encounter for screening colonoscopy Health Maintenance Due Date Last Done Comments DISCUSS TOBACCO CESSATION (REFER TO SMARTSET #329) 1955 Cologuard 1998 Fecal Occult Blood Test [...] as of this encounter Visit Diagnoses Diagnosis Generalized anxiety disorder documented in this encounter Advance Directives Documents on File Type Date Recorded Patient Independent Marketing Consultant Expl anation Power of Shoe Parts Molder 01/11/2023 Porter Gregory POWER OF GROUNDSKEEPING MAINTENANCE WORKER * Full Code (Latest Code Status on [...] Agen t (per Health Care Power of Shoe Parts Molder document) Care Teams Sighter Relationship Specialty Start Date End Date Ct Christy DO PCP - General Family Medicine 01/17/22 documented as of this encounter
--- OUTSIDE RECORDS SUMMARY | 2024-04-20 08:54 | External Medical Summary | Summary of Care ---
Author Name Unknown Organization [facility] Address [address] [place] [address] Phone [phone] Care Team Providers Care Phone Technician Name Role Phone Ct Morales DO Primary Care Provider Reason for Referral * Evaluate & Treat - Unlimited Visits (Within 30 days (routine)) - Authorized Specialty Diagnoses / Procedures Referred By Mark kaufman Referred To Contact Sports Medicine / Orthopedics Diagnoses Other closed nondisplaced fracture of proximal end of right humerus, initial encounter Sharer, Felicity Roberts PA-C [address] [place] [id number] Referral ID Status Reason Start Date Expiration Date Visits Requested Visits Authorized [id number] Authorized Specialty Services Required 12/25/[phone] Question Answer What body part is the patient being seen for? Shoulder What condition is the patient being seen for? Fracture including related infection Referral Priority Within 30 days (routine) Where should this appointment be scheduled? [facility] Reason for Visit * Reason Comments NEW PATIENT Pain in right upper arm, Pt states she went to [facility] [place] Encounter Details Date Type Department Care Team ([facility] st Contact Info) Description 12/25/2023 1:15 PM EDT Office Visit Orthopaedics [facility] [address] [place] [id number] Sharer, Felicity Roberts PA-C [address] [place] [address] Other closed nondisplaced fracture of proximal end of right humerus, initial encounter* Allergies No known active allergiesdocumented as of this encounter (statuses as of 12/25/2023) Medications Medication Sig Dispensed Refills Start Date [...] by mouth daily. DC from [facility] 04/16/2018 Active metroNIDAZOLE 1 % [...] 07/16/2023 Active Gabapentin 600 MG Oral Tablet (Neurontin)Indicat ions:Paresthesias Take 1 Tablet by mouth in the morning and 1 Tablet before bedtime. 200 Tablet 1 07/17/2023 Active LORazepam 1 MG Oral Tablet (Ativan)Indication s:Generalized anxiety disorder Take 1/2 to 1 tablet three times a day as needed 60 Tablet 09/29/2023 Active Varenicline Tartrate 1 MG Oral TabletIndications: Tobacco abuse Take 1 Tablet by mouth in the morning and 1 Tablet before bedtime. As directed on box.. 60 Tablet 3 10/26/2023 Active Varenicline Tartrate (Starter) 0.5 MG X 11 & 1 MG X 42 Tablet Therapy PackIndications:To bacco abuse Take by mouth 0.5 mg once [...] Active Nicotine Polacrilex 2 MG Mouth/Throat Gum (Nicorette)Indicat ions:Tobacco abuse,Cigarette smoker,Tobacco use Take 1 piece by mouth every hour as needed for cravings. Max=24 pieces per day 100 Each 3 11/20/2023 Active Additional Information Patient not taking.Reported on 12/25/2023 documented as of this encounter (statuses as of 12/25/2023) Active Problems Problem Noted Date Diagnosed Date [...] as of this encounter (statuses as of 12/25/2023) Resolved Problems Problem Noted Date Diagnosed Date [...] as of this encounter (statuses as of 12/25/2023) Immunizations Name Administration Dates Next Due COVID-19 mRNA, LNP-s, No Pre serve, 2-Dose Series (Pinoccio) 01/01/2022,07/12/2021,08/25/2020,07/14 COVID-19, MRNA-LNP, 23-24, P F, 30 MCG/0.3 mL, 12 YRS AND ABOVE, IM (Oxatis-ComirnatiSOCO) 07/17/2023 Covid-19, Mrna, Lnp-s, Pf, B ivalent, [...] Date Smoking Tobacco: Every Day Cigarettes 0.5 50.1 Started: [birth year]/10/1972; Last attempted to quit: 12/10/2022 [...] No 01/14/2023 documented as of this encounter Patient Instructions * Patient Instructions* Felicity Fountain PA-C - 12/25/2023 2:16 PM EDT documented in this encounter Progress Notes * Felicity Fountain PA-C - 12/25/2023 2:27 PM EDT Malika Gregory is a 68 year old female who presents for consultation to [facility] for right shoulder injury/pain. Consult requested by Cherelle Benavides DO. Subjective: Malika Gregory reports that right shoulder pain started 12/23/2023. Patient states injured her shoulder in a trip and fall. She complains of pain throughout the right shoulder. Notes difficulty with any shoulder motion. She was taking Tylenol ibuprofen with some relief. She denies any numbness ortingling. She was initially seen at [facility] and treated with a sling. Review of systems: All others negative except those noted above in HPI. Review of patient's allergies indicates: No Known [...] by mouth daily. DC from [facility] metroNIDAZOLE 1 % External Gel (Metrogel) Apply topically to affected area 2 times a day. To affected area. 30 g 5 Albuterol Sulfate HFA 108 (90 Base) MCG/ACT Inhalation Aerosol Solution INHALE 2 PUFFS EVERY 4 HOURS NEEDED FOR WHEEZING. 18 g 2 Atorvastatin Calcium 20 MG Oral Tablet (Lipitor) Take 1 Tablet by mouth in the morning. 100 Tablet 3 Famotidine 20 MG Oral Tablet (Pepcid) TAKE ONE TABLET BY MOUTH IN THE MORNING AND TAKE ONE TABLET BY MOUTH BEFORE BEDTIME (Patient taking differently: Takes at bedtime only.) 180 Tablet 1 Pantoprazole Sodium 20 MG Oral Tablet Delayed Release (Protonix) TAKE ONE TABLET BY MOUTH IN THE MORNING 30 MINUTES BEFORE THE FIRST MEAL OF THE DAY . DO NOT CUT,CRUSH OR CHEW 90 Tablet 1 Gabapentin 600 MG Oral Tablet (Neurontin) Take 1 Tablet by mouth in the morning and 1 Tablet beforebedtime. 200 Tablet 1 LORazepam 1 MG Oral Tablet (Ativan) Take 1/2 to 1 tablet three times a day as needed 60 Tablet 0 Varenicline Tartrate 1 MG Oral Tablet Take 1 Tablet by mouth in the morning and 1 Tablet before bedtime. As directed on box.. 60 Tablet 3 Varenicline Tartrate (Starter) 0.5 MG X 11 & 1 MG X 42 Tablet Therapy Pack Take by mouth 0.5 mgonce daily for 3 days then increase to 0.5 mg twice daily for 4 days then increase to 1 mg twice daily 1 Each 0 DULoxetine HCl 30 MG Oral Capsule Delayed Release Particles (Cymbalta) Take 1 Capsule by mouth in the morning do not cut, crush or chew. 100 Capsule 1 Thiamine HCl 100 MG Oral Tablet (vitamin B-1) Take 1 Tablet by mouth in the morning. 90 Tablet 1 Urkfkminmht-Mnnbbytqq-Bgxvcj 100-62.5-25 MCG/ACT Aerosol Powder Breath Activated (Trelegy Ellipta) INHALE ONE PUFF BY MOUTH EVERY MORNING 180 Each 3 Nicotine Polacrilex 2 MG Mouth/Throat Gum (Nicorette) Take 1 piece by mouth every hour as needed for cravings. Max=24 pieces per day (Patient not taking: Reported on 12/25/2023) 100 Each 3 No current facility-administered medications for this [...] performed by Jelly Jean Baptiste MD at [facility] COLONOSCOPY, DIAGNOSTIC (RECTUM) 11/15/2015 COLONOSCOPY FLEXIBLE PROXIMAL DIAGNOSTIC performed by Jaime Jean Baptiste MD at [facility] COLORECTAL CANCER SCREEN; COLON 2001 colonoscopy- 8 yrs CONIZATION OF CERVIX 01/1995 path neg, Dr Romero DENTAL SURGERY PROCEDURE NEC age 18 wisdom teeth x 4 EGD, FLEXIBLE, DIAGNOSTIC 12/21/2015 normal bx, HH/ESOPHAGOGASTRODUODENOSCOPY (EGD), FLEXIBLE, TRANSORAL, DIAGNOSTIC performed by Jaime Jean Baptiste MD at [facility] EGD, FLEXIBLE, DIAGNOSTIC 05/27/2018 hiatal hernia/ESOPHAGOGASTRODUODENOSCOPY (EGD), FLEXIBLE, TRANSORAL, DIAGNOSTIC performed by Jaime Jean Baptiste MD at [facility] EGD, FLEXIBLE, DIAGNOSTIC N/A 01/20/2023 LA grade C reflux esophagitis/hiatal hernia/focal edema GEJ/ESOPHAGOGASTRODUODENOSCOPY (EGD), FLEXIBLE, TRANSORAL, DIAGNOSTIC performed by Barb Dunn MD at [facility] EGD, FLEXIBLE, DIAGNOSTIC N/A 01/23/2023 submucosal nodule with small ulcer/biopsies show inflammation compatible with ascess/ESOPHAGOGASTRODUODENOSCOPY (EGD), FLEXIBLE, TRANSORAL, DIAGNOSTIC performed by Barb Dunn MD at [facility] EGD, FLEXIBLE, DIAGNOSTIC 06/22/2023 ESOPHAGOGASTRODUODENOSCOPY (EGD), FLEXIBLE, TRANSORAL, DIAGNOSTIC performed by Denise Dunn MD at [facility] EGD, W/ENDOSCOPIC US 05/27/2018 normal/ESOPHAGOGASTRODUODENOSCOPY (EGD), FLEXIBLE, TRANSORAL, ENDOSCOPIC ULTRASOUND performed by Jaime Jean Baptiste MD at [facility] EGD, W/ENDOSCOPIC US 11/18/2023 ESOPHAGOGASTRODUODENOSCOPY (EGD), FLEXIBLE, TRANSORAL, ENDOSCOPIC ULTRASOUND performed by Dawit Mckay MD at [facility] EYE MUSCLE SURGERY FOLLOWUP age 3 and age 8 R eye INJECT DX/THER SUBSTANCE INTERLAMINAR LUMBAR/SACRAL W IMAGE GUIDE 12/31/2017 INJECTION SPINE LUMBAR OR SACRAL performed by Riaz Huston DO at [facility] INJECT DX/THER SUBSTANCE INTERLAMINAR LUMBAR/SACRAL W IMAGE GUIDE 01/28/2018 INJECTION SPINE LUMBAR OR SACRAL performed by Riaz Huston, at 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, margins clear, Dr Romero TREAT ECTOPIC , TUBE/OVARY in early 20s left tube removed US - LIVER 09/29/2008 no RUQ ascites Social History Socioeconomic History Marital status: Spouse name: Not on file Number of children: Not on file Years of education: Not on file Highest education level: Not on file Occupational History 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 Tobacco Use Smoking status: Every Day Current packs/day: 0.50 Average packs/day: 0.5 packs/day for 50.1 years (25.1 ttl pk-yrs) Types: Cigarettes Start date: 12/10/1972 Last attempt to quit: 12/10/2022 Passive exposure: Past Smokeless tobacco: Never Vaping Use Vaping status: Never Used Substance and Sexual Activity Alcohol use: Not Currently Comment: 2 vodka drinks every other day Drug use: No Comment: no caffiene Sexual activity: Not Currently Other Topics Concern Service Not Asked Blood Transfusions No Caffeine Concern Not Asked Occupational Exposure Not Asked Hobby Hazards Not Asked Sleep Concern No Stress Concern Not Asked Weight Concern Not Asked Special Diet Yes Comment: low cholesterol diet Back Care Not Asked Exercise Not Asked Bike Helmet Not Asked Seat Belt Yes Self-Exams Not Asked Social History Narrative job: [employer] education: Bachelors psych, associates in nursing service: no hobbies/interests: sees family transfusions: no exercise: Walking diet: Avoid caffiene caodaism/jain: no marital status: at age 32 children: 3 gc: 4 from step, 2 natural ggc: 0 pets: 2 cats exposure to violence/threats/abuse: no things to improve: Job/stop sleeping so much Social Determinants of Health Financial Resource Strain: Not on file Food Insecurity: No Food Insecurity (07/17/2023) Hunger Vital Sign Worried About Running Out of Food in the Last Year: Never true Ran Out of Food in the Last Year: Never true Transportation Needs: Not on file Physical Activity: Not on file Stress: Not on file Social Connections: Not on file Intimate Partner Violence: Not on file Housing Stability: Not on file Family History Problem Relation Name Age of Onset Cancer Mother throat- at 54 Cancer Father prostrate- at 75 Hypertension Father Hearing loss Brother Diabetes None Heart Disorder None Mental Disorder None Stroke None Family History; none relevant to acute HPI 12/25/2023 Objective: Physical Exam There were no vitals filed for this visit. Estimated body mass index is 27.45 kg/m as calculated from the following: Height as of 11/18/23: 1.626 m (5' 4.02"). Weight as of 11/18/23: 72.6 kg (160 lb). General: generally well-nourished and in no acute distress HEENT: normocephalic, atraumatic, sclera anicteric Psych: mood and affect normal , cooperative Card: Peripheral pulses: normal in affected extremity (s) Resp: equal chest rise, non-tachypneic, non-labored breathing Skin: no rash, normal Neuro: Coordination: normal; Sensation: normal on affected extremity (s) MSK: Shoulder exam, bilateral Inspection: No visible deformity, redness, swelling or bruising Palpation: Tenderness to palpation throughout the proximal humerus Shoulder glenohumeral ACTIVE range of motion: Deferred Shoulder glenohumeral PASSIVE range of motion: Deferred Strength and cuff tests: Thumb pinch strength 5/5 bilaterally Nuclear Reactor Technician strength 5/5 bilaterally Finger spread 5/5 bilaterally Radiology (I have personally reviewed the following films): X-rays of the right shoulder were obtained today and reviewed with patient. Those x-rays show a nondisplaced proximal humerus fracture. Assessment and Plan: Other closed nondisplaced fracture of proximal end of right humerus, initial encounter (Primary) Right shoulder pain - XR HUMERUS 2 OR MORE VIEWS Recommend immobilization in a sling and swath. Advised to remain nonweightbearing. Encouraged rangeof motion of the elbow and wrist. Discussed importance of smoking cessation for fracture healing Follow Up: Return for Follow up in 2 weeks Brandin Evangelista, Dr Flores, Dr Ramirez, or Dr Schwab. | For: Follow up in 2 weeks Brandin Evangelista, Dr Flores, Dr Ramirez, or Dr Zaheer Fountain PA-C [facility] [address] [facility] [place] [place] [id number] documented in this encounter Nursing Notes * Samantha Peguero MED ASSIST - 12/25/2023 1:23 PM EDT Pt states pain in right upper arm. Pt states she fell and fell on arm. Pt states this happened 2x days ago and has been alternating between tylenol and ibuprofen, has noticed improvement with pain. Pt states pain is currently 4/10. documented in this encounter Miscellaneous Notes * Addendum Note - Felicity Fountain PA-C - 12/25/2023 3:19 PM EDTAddended by: FELICITY FOUNTAIN on: 12/25/2023 03:19 PM Modules accepted: Orders documented in this encounter Plan of Treatment Upcoming Encounters Date Type Department Care Team (Late st Contact Info) Description 01/01/2024 11:30 AM EDT Telemedicine Family Practice [address] [facility] [address] [facility], [place] [address] College, Pharmacist [address], [place] [address] 01/18/2024 8:30 AM EDT Office [facility] [address] [facility] [place] [address] Deepak Miller MD [address] [place] [address] 02/05/2024 2:20 PM EDT Office Visit Family Practice [address] [place] [address] [place] [address] [address] Morales DO [address] [place] [address] 04/05/2024 2:00 PM EDT Office Visit Hepatology, [facility] [address] [facility] [place] [address] Ashley Cheema MD [address] [facility] [place] [id number] Pending Results Name Type Priority Associated Diagnoses Date /Time XR HUMERUS 2 OR MORE VIEWS Medical Imaging Routine Other closed nondisplaced fracture of proximal end of right humerus, initial encounter 12/25/2023 1:46 PM EDT Scheduled Procedures Name Priority Associated Diagnoses Date/Ti me COLONOSCOPY FLEXIBLE PROXIMA L DIAGNOSTIC Recall Encounter for screening colonoscopy Scheduled Referrals Name Type Priority Associated Diagnoses Orde r Schedule SPORTS MEDICINE REFERRAL OP Referral Within 30 days (routine) Other closed nondisplaced fracture of proximal end of right humerus, initial encounter Ordered: 12/25/2023 Health Maintenance Due Date Last Done Comments DISCUSS TOBACCO CESSATION (REFER TO [facility] #[id number]) 1953 Cologuard 1998 Fecal Occult Blood Test [...] Documents on File Type Date Recorded Patient Project Controller Expl anation Power of Carroting Machine Offbearer 01/11/2023 Porter Gregory POWER OF MATERIALS CLERK * Full Code (Latest Code Status on [...] Agen t (per Health Care Power of Carroting Machine Offbearer document) Care Teams Phone Technician Relationship Specialty Start Date End Date Ct Morales DO PCP - General Family Medicine 01/17/22 documented as of this encounter
--- OUTSIDE RECORDS SUMMARY | 2024-04-20 08:54 | External Medical Summary | Summary of Care ---
Author Name Unknown Organization [facility] Address [address] [place] [address] Phone [phone] Care Team Providers Care Public Relations Studies Director Name Role Phone Ct Morales DO Primary Care Provider Reason for Referral * Evaluate & Treat - Unlimited Visits (Within 30 days (routine)) - Authorized Specialty Diagnoses / Procedures Referred By Mark kaufman Referred To Contact Sports Medicine / Orthopedics Diagnoses Other closed nondisplaced fracture of proximal end of right humerus, initial encounter Sharer, Felicity Roberts PA-C [address] [place] [id number] Referral ID Status Reason Start Date Expiration Date Visits Requested Visits Authorized [id number] Authorized Specialty Services Required 12/25/2023 999 999 [...] Pt states she went [facility] [place] Encounter Details Date Type Department Care Team ([facility] st Contact Info) Description 12/25/2023 1:15 PM EDT Office Visit Orthopaedics [facility] [address] [place] [address] Sharer, Felicity Roberts PA-C [address] [place] [address] Other closed nondisplaced fracture of proximal end [...] 125 mg by mouth daily. DC from [facility] 8 Active metroNIDAZOLE 1 % External [...] a day as needed 60 Tablet 4 12/28/19 24 Discontinued(Ref ill) Varenicline Tartrate (Starter) 0.5 MG X 11 [...] 100 Each 3 4 01/01/20 24 Discontinued(Med ication List Clean Up) documented as of this [...] documented in this encounter Progress Notes * Sharer, Felicity Roberts PA-C - 12/25/2023 2:27 PM EDT Malika Gregory is a 68 year old female who presents for consultation to [facility] for right shoulder injury/pain. [...] numbness ortingling. She was initially seen at [facility] and treated with a sling. Review [...] 125 mg by mouth daily. DC from [facility] metroNIDAZOLE 1 % External Gel (Metrogel) [...] mouth in the morning. 90 Tablet 1 Itfjgxohapk-Jopoyrzdi-Jpgrxt 100-62.5-25 MCG/ACT Aerosol Powder Breath Activated (Trelegy [...] by Jelly Jean Baptiste MD at ENDOSCOPY [facility] COLONOSCOPY, DIAGNOSTIC (RECTUM) 11/15/2015 COLONOSCOPY FLEXIBLE PROXIMAL DIAGNOSTIC performed by Jaime Jean Baptiste MD at ENDOSCOPY [facility] COLORECTAL CANCER SCREEN; COLON 2001 colonoscopy- 8 yrs CONIZATION OF CERVIX 01/1995 path neg, Dr Romero DENTAL SURGERY PROCEDURE NEC age 18 wisdom teeth x 4 EGD, FLEXIBLE, DIAGNOSTIC 12/21/2015 normal bx, HH/ESOPHAGOGASTRODUODENOSCOPY (EGD), FLEXIBLE, TRANSORAL, DIAGNOSTIC performed by Jaime Jean Baptiste MD at ENDOSCOPY [facility] EGD, FLEXIBLE, DIAGNOSTIC 05/27/2018 hiatal hernia/ESOPHAGOGASTRODUODENOSCOPY (EGD), FLEXIBLE, TRANSORAL, DIAGNOSTIC performed by Jaime Jean Baptiste MD at ENDOSCOPY [facility] EGD, FLEXIBLE, DIAGNOSTIC N/A 01/20/2023 LA grade C reflux esophagitis/hiatal hernia/focal edema GEJ/ESOPHAGOGASTRODUODENOSCOPY (EGD), FLEXIBLE, TRANSORAL, DIAGNOSTIC performed by Barb Dunn MD at ENDOSCOPY [facility] EGD, FLEXIBLE, DIAGNOSTIC N/A 01/23/2023 submucosal nodule with small ulcer/biopsies show inflammation compatible with ascess/ESOPHAGOGASTRODUODENOSCOPY (EGD), FLEXIBLE, TRANSORAL, DIAGNOSTIC performed by Barb Dunn MD at OR [facility] EGD, FLEXIBLE, DIAGNOSTIC 06/22/2023 ESOPHAGOGASTRODUODENOSCOPY (EGD), FLEXIBLE, TRANSORAL, DIAGNOSTIC performed by Denise Dunn MD at ENDOSCOPY [facility] EGD, W/ENDOSCOPIC US 05/27/2018 normal/ESOPHAGOGASTRODUODENOSCOPY (EGD), FLEXIBLE, TRANSORAL, ENDOSCOPIC ULTRASOUND performed by Jaime Jean Baptiste MD at ENDOSCOPY [facility] EGD, W/ENDOSCOPIC US 11/18/2023 ESOPHAGOGASTRODUODENOSCOPY (EGD), FLEXIBLE, TRANSORAL, ENDOSCOPIC ULTRASOUND performed by Dawit Mckay MD at ENDOSCOPY [facility] EYE MUSCLE SURGERY FOLLOWUP age 3 and age 8 R eye INJECT DX/THER SUBSTANCE INTERLAMINAR LUMBAR/SACRAL W IMAGE GUIDE 12/31/2017 INJECTION SPINE LUMBAR OR SACRAL performed by Riaz Huston DO at OR [facility] INJECT DX/THER SUBSTANCE INTERLAMINAR LUMBAR/SACRAL W IMAGE GUIDE 01/28/2018 INJECTION SPINE LUMBAR OR SACRAL performed by Riaz Huston DO at OR [facility] IR ASPIRATION ABSCESS/COLLECTION 01/27/2020 IR ASPIRATION ABSCESS/COLLECTION 01/23/2023 IR BIOPSY 10/27/2022 PARTIAL COLECTOMY W/ANASTOMOSIS N/A 01/14/2023 PARTIAL COLECTOMY WITH ANASTOMOSIS performed by Jeffrey Mesa MD at OR [facility] REMOVAL OF APPENDIX N/A 01/14/2023 APPENDECTOMY performed by Jeffrey Mesa MD at OR [facility] REMOVAL OF SMALL INTESTINE W/FUSION N/A 01/14/2023 ENTERECTOMY SMALL BOWEL RESECTION performed by Jeffrey Mesa MD at OR [facility] REMOVAL OF VULVA, 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 | For: Follow up in [address] Fanneli, Dr Ramirez, or Dr Zaheer Fountain PA-C [facility] [address] [place] [address] documented in this encounter Nursing Notes * [...] 01/12/2024 11:00 AM EDT Office Visit Orthopaedics [facility] [address] [place] [address] Brunilda Valerio PA-C 132 [facility] [place] [address] 01/18/2024 8:30 AM EDT Office Visit Dermatology [facility] [place] [address] [place] [address] Deepak Miller MD [address] [place] [address] 01/22/2024 11:30 AM EDT Telemedicine Family Practice 65 [facility] [address] College, Pharmacist [address] [place] [address] 02/05/2024 2:20 PM EDT Office Visit Family Practice 65 [facility], [place] 293 [place] [address] Ct Morales DO 293 [place] [address] 04/05/2024 2:00 PM EDT Office Visit Hepatology, [facility] 132 [facility] [place] [address] Ashley Cheema MD [address] [place] [address] Scheduled Procedures Name Priority Associated Diagnoses [...] Comments DISCUSS TOBACCO CESSATION (REFER TO SMARTSET #1303) 1953 Cologuard 1998 Fecal Occult Blood Test [...] Not on filedocumented as of this encounter Procedures Procedure Name Priority Date/Time Associated Diagnosis Comments XR HUMERUS 2 OR MORE VIEWS Routine 12/25/2023 1:46 PM EDT Other closed nondisplaced fracture of proximal end of right humerus, initial encounter documented in this encounter Results * XR HUMERUS 2 OR MORE VIEWS (12/25/2023 1:46 PM EDT) Anatomical Region Laterality Modality Upper Extremity, HUMERUS Compute d Radiography 12/27/2023 1:31 PM EDT Impressions 12/27/2023 1:29 PM EDT IMPRESSION Comminuted and mildly displaced right proximal humerus fracture. Narrative 12/27/2023 1:29 PM EDT EXAM RT XR HUMERUS 2 OR MORE VIEWS - 12/25/2023 1:46 pm HISTORY right shoulder pain COMPARISON None TECHNIQUE Two views FINDINGS Comminuted and mildly displaced right proximal humerus fracture with fracture lines across the surgical neck and extending into the greater tuberosity. No dislocation. Moderate acromioclavicular and mild glenohumeral osteoarthritis. Procedure Note Jens Rivas MD - 12/27/2023 EXAM RT XR HUMERUS 2 OR MORE VIEWS - 12/25/2023 1:46 pm HISTORY right shoulder pain COMPARISON None TECHNIQUE Two views FINDINGS Comminuted and mildly displaced right proximal humerus fracture withfracture lines across the surgical neck and extending into the greatertuberosity. No dislocation. Moderate acromioclavicular and mildglenohumeral osteoarthritis. IMPRESSION IMPRESSION Comminuted and mildly displaced right proximal humerus fracture. Felicity Roberts Sharer PA-C RADIOLOGY ([facility]) documented in this encounter Visit Diagnoses Diagnosis Other closed nondisplaced fracture of proximal end of right humerus, initial encounter- Primary documented in this encounter Advance Directives Documents on File Type Date Recorded Patient Ticket Agent Expl anation Power of [place] 01/11/2023 Porter Gregory POWER OF LASTER HAND * Full Code (Latest Code Status [...] Agen t (per Health Care Power of [place] document) Care Teams Public Relations Studies Director Relationship Specialty Start Date End Date Ct Morales DO PCP - General Family Medicine 01/17/22 12/30/23 documented as of this encounter
--- OUTSIDE RECORDS SUMMARY | 2024-04-20 08:54 | External Medical Summary | Summary of Care ---
Author Name Unknown Organization [facility] Address [address] [place] [address] Phone [phone] Care Team Providers Care Salesperson Pets And Pet Supplies Name Role Phone Ct Morales DO Primary Care Provider Encounter Details Date Type Department Care Team (Late st Contact Info) Description 12/28/2023 Telephone Orthopaedics [facility] [address] [facility] [place] [address] Brunilda Valerio PA-C [address] [place] [address] Allergies No known active allergiesdocumented as of this encounter (statuses as of 12/28/2023) Medications Medication Sig Dispensed Refills Start Date [...] 125 mg by mouth daily. DC from [facility] 04/16/2018 Active metroNIDAZOLE 1 % [...] as of this encounter (statuses as of 12/28/2023) Active Problems Problem Noted Date Diagnosed Date [...] as of this encounter (statuses as of 12/28/2023) Resolved Problems Problem Noted Date Diagnosed Date [...] as of this encounter (statuses as of 12/28/2023) Immunizations Name Administration Dates Next Due COVID-19 mRNA, LNP-s, No Pre serve, 2-Dose Series ([employer]) 01/01/2022,07/12/2021,08/25/2020,07/14 COVID-19, MRNA-LNP, 23-24, P F, 30 MCG/0.3 mL, 12 YRS AND ABOVE, IM ([employer]) 07/17/2023 Covid-19, Mrna, Lnp-s, Pf, B ivalent, [...] encounter Miscellaneous Notes * Telephone Encounter - Linda Mesa OSA - 12/28/2023 10:44 AM EDT Called patient and left a detailed message that she is scheduled with [facility] on 01-12-24 at 11:00AM documented in this encounter Plan of Treatment Upcoming Encounters Date Type Department Care Team (Late st Contact Info) Description 01/01/2024 11:30 AM EDT Telemedicine Family Practice 65 [facility] 293 [place] [address] College, Pharmacist [address], [place] [address] 01/12/2024 11:00 AM EDT Office Visit [facility] [address] Brunilda Valerio PA-C 132 [facility] [address] 01/18/2024 8:30 AM EDT Office Visit Dermatology [facility] 200 [facility] [place] [address] Deepak Miller MD 200 [facility] [place] [address] 02/05/2024 2:20 PM EDT Office Visit Family Practice [address] [place] [address] [address] [place] [address] Ct Morales DO 293 [place] [address] 04/05/2024 2:00 PM EDT Office Visit Hepatology, [facility] 132 [place] [address] Ashley Cheema MD [address] [place] [id number] Scheduled Procedures Name Priority Associated Diagnoses Date/Ti me COLONOSCOPY FLEXIBLE PROXIMA L DIAGNOSTIC Recall Encounter for screening colonoscopy Health Maintenance Due Date Last Done Comments DISCUSS TOBACCO CESSATION (REFER TO SMARTSET #0031) 1955 Cologuard 1998 Fecal Occult Blood Test [...] Documents on File Type Date Recorded Patient Manager Of Pharmacy Expl anation Power of [place] 01/11/2023 Porter Gregory POWER OF PROCESS IMPROVEMENT ANALYST * Full Code (Latest Code Status on [...] Agents on File Name Relationship Healthcare Agent [facility] Communication Porter Gregory Adult Child Health Care Deangelo t (per Health Care Power of [place] Tipper document) Care Teams Salesperson Pets And Pet Supplies Relationship Specialty Start Date End Date Ct Morales DO PCP - General Family Medicine 01/17/22 documented as of this encounter
--- OUTSIDE RECORDS SUMMARY | 2024-04-20 08:54 | External Medical Summary | Summary of Care ---
Author Name Unknown Organization [facility] Address [address] [place] [address] Phone [phone] Care Team Providers Care General Maintenance Engineer Name Role Phone Ct Morales DO Primary Care Provider Reason for Referral * Evaluate & Treat - Unlimited Visits (Within 30 days (routine)) - Authorized Specialty Diagnoses / Procedures Referred By aMrk kaufman Referred To Contact Sports Medicine / Orthopedics Diagnoses Other closed nondisplaced fracture of proximal end of right humerus, initial encounter Sharer, Felicity Roberts PA-C [address] [place] [address] Referral ID Status Reason Start Date Expiration Date Visits Requested Visits Authorized [id number] Authorized Specialty Services Required 12/25/2023 999 999 [...] Pt states she went [facility] [place] Encounter Details Date Type Department Care Team ([facility] st Contact Info) Description 12/25/2023 1:15 PM EDT Office Visit Orthopaedics [facility] [address] [place] [address] Sharer, Felicity Roberts PA-C [address] [place] [address] Other closed nondisplaced fracture of proximal end [...] 125 mg by mouth daily. DC from [facility] 04/16/2018 Active metroNIDAZOLE 1 % [...] mRNA, LNP-s, No Pre serve, 2-Dose Series ([employer]) 01/01/2022,07/12/2021,08/25/2020,07/14 COVID-19, MRNA-LNP, 23-24, P F, 30 MCG/0.3 mL, 12 YRS AND ABOVE, IM ([employer]) 07/17/2023 Covid-19, Mrna, Lnp-s, Pf, B ivalent, [...] encounter Patient Instructions * Patient Instructions* Felicity Lugo PA-C - 12/25/2023 2:16 PM EDT documented in this encounter Progress Notes * Felicity Lugo PA-C - 12/25/2023 2:27 PM EDT Malika Gregory is a 68 year old female who presents for consultation to [facility] for right shoulder [...] numbness ortingling. She was initially seen at [facility] and treated with a sling. Review of [...] 125 mg by mouth daily. DC from [facility] metroNIDAZOLE 1 % External Gel [...] mouth in the morning. 90 Tablet 1 Ociiudbrplk-Tjgmugjol-Bpsmpp 100-62.5-25 MCG/ACT Aerosol Powder Breath Activated (Trelegy [...] [facility] EGD, FLEXIBLE, DIAGNOSTIC 06/22/2023 ESOPHAGOGASTRODUODENOSCOPY (EGD), FLEXIBLE, TRANSORAL, DIAGNOSTIC performed by Denise Dunn MD at [facility] EGD, W/ENDOSCOPIC US 05/27/2018 normal/ESOPHAGOGASTRODUODENOSCOPY (EGD), FLEXIBLE, TRANSORAL, ENDOSCOPIC ULTRASOUND performed by Jaime Jean Baptiste MD at [facility] EGD, W/ENDOSCOPIC US 11/18/2023 ESOPHAGOGASTRODUODENOSCOPY (EGD), FLEXIBLE, TRANSORAL, ENDOSCOPIC ULTRASOUND performed by Dawit Mckay MD at [facility] EYE MUSCLE SURGERY FOLLOWUP age 3 and age 8 R eye INJECT DX/THER SUBSTANCE INTERLAMINAR LUMBAR/SACRAL W IMAGE GUIDE 12/31/2017 INJECTION SPINE LUMBAR OR SACRAL performed by Riaz Huston DO at OR [facility] INJECT DX/THER SUBSTANCE INTERLAMINAR LUMBAR/SACRAL W IMAGE GUIDE 01/28/2018 INJECTION SPINE LUMBAR OR SACRAL performed by Riaz Huston, at OR [facility] IR ASPIRATION ABSCESS/COLLECTION 01/27/2020 IR ASPIRATION ABSCESS/COLLECTION 01/23/2023 IR BIOPSY 10/27/2022 PARTIAL COLECTOMY W/ANASTOMOSIS N/A 01/14/2023 PARTIAL COLECTOMY WITH ANASTOMOSIS performed by Jeffrey Mesa MD at OR [facility] REMOVAL OF APPENDIX N/A 01/14/2023 APPENDECTOMY performed by Jeffrey Mesa MD at OR [facility] REMOVAL OF SMALL INTESTINE W/FUSION N/A 01/14/2023 ENTERECTOMY SMALL BOWEL RESECTION performed by Jeffrey Mesa MD at OR [facility] REMOVAL OF VULVA, 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 Pt states she fell and fell on arm. Pt states this happened 2x days ago and has been alternating between tylenol and ibuprofen, has noticed improvement with pain. Pt states pain is currently 4/10. documented in this encounter Plan of Treatment Upcoming Encounters Date Type Department Care Team (Late st Contact Info) Description 01/01/2024 11:30 AM EDT Telemedicine Family Practice 65 [facility] [address] College, Pharmacist [address] [address] 01/18/2024 8:30 AM EDT Office Visit Dermatology [facility] 200 [facility] [place] [address] Deepak Miller MD 200 [facility] [place] [address] 02/05/2024 2:20 PM EDT Office Visit Family Practice [address] [facility], [place] 293 [place] [address] Ct Morales DO 293 [place] [address] 04/05/2024 2:00 PM EDT Office Visit Hepatology, [facility] 132 [facility] [place] [address] Ashley Cheema MD [address] [place] [address] Pending Results Name Type Priority Associated Diagnoses [...] Comments DISCUSS TOBACCO CESSATION (REFER TO SMARTSET #2187) 1955 Cologuard 1998 Fecal Occult Blood Test [...] Documents on File Type Date Recorded Patient Tumor Registrar Expl anation Power of Sales Process Manager 01/11/2023 Porter Gregory POWER OF CIGAR HEAD STRINGER * Full Code (Latest Code Status on [...] Agents on File Name Relationship Healthcare Agent [facility] Porter Gregory Adult Child Health Care Roberto Carlosn t (per Health Care Power of Sales Process Manager document) Care Teams General Maintenance Engineer Relationship Specialty Start Date End Date Ct Morales DO PCP - General Family Medicine 01/17/22 documented as of this encounter
--- OUTSIDE RECORDS SUMMARY | 2024-04-20 08:55 | External Medical Summary | Summary of Care ---
Author Name Unknown Organization [facility] Address [address] [place] [address] Phone [phone] Care Team Providers Care [employer] Name Role Phone Ct Morales rBaulio NEGRON Primary Care Provider Reason for Visit * Auth/Cert Specialty Diagnoses / Procedures Referred By Mark t Referred To Contact Diagnoses Nodule of esophagus Nodule of esophagus [K22.9] Procedures EGD, W/ENDOSCOPIC US ESOPHAGOGASTRODUODENOSCOPY (EGD), FLEXIBLE, TRANSORAL, ENDOSCOPIC ULTRASOUND Referral ID Status Reason Start Date Expiration Date Visits Re quested Visits Authorized [id number] Encounter Details Date Type Department Care Team (Latest Contact Info) Description 11/18/2023 10:31 AM EDT - 11/18/2023 1:27 PM EDT Hospital Encounter ENDO [facility], Endoscopy Room [facility] [address] [place] [phone] Dawit Mckay MD [address] [place] [phone] Upper Endoscopic US Discharge Disposition: Home - Self Care Allergies No known active allergiesdocumented as of this encounter (statuses as of 11/19/2023) Medications Medication Sig Dispensed Refills Start Date [...] Capsule by mouth in the morning. \\. 0 04/16/2018 Active magnesium chloride ER (MAG-64) 64 MG TBECIndications:H ospital discharge follow-up,Sepsis, due to unspecified organism,Alcohol use,Hypomagnesemi a Take 125 mg by mouth daily. DC from [facility] 0 04/16/2018 Active metroNIDAZOLE 1 % External Gel [...] EVERY MORNING 180 Each 3 12/04/2022 4 Active Atorvastatin Calcium 20 MG Oral Tablet (Lipitor)Indicati ons:Dyslipidemia, goal LDL below 100 Take 1 Tablet by mouth in the morning. 100 Tablet 3 02/02/2023 Active Famotidine 20 MG Oral Tablet (Pepcid) TAKE ONE TABLET BY MOUTH IN THE MORNING AND TAKE ONE TABLET BY MOUTH BEFORE BEDTIME 180 Tablet 1 06/17/2023 4 Active Additional Information Patient taking differently: Takes [...] 07/17/2023 Active LORazepam 1 MG Oral Tablet (Ativan)Indicatio ns:Generalized anxiety disorder Take 1/2 to 1 tablet three times a day as needed 60 Tablet 0 09/29/2023 Active Varenicline Tartrate 1 MG Oral TabletIndications [...] the morning. 90 Tablet 1 11/06/2023 Active THIAMINE (VITAMIN B-1) 100 MG Tablet Take 1 Tablet by mouth. Every other day 30 Tab 0 04/16/2018 4 Discontinue d(Refill) Varenicline Tartrate 1 MG Oral TabletIndications :Tobacco abuse Take 1 Tablet by mouth in the morning and 1 Tablet before bedtime. As directed on box.. 60 Tablet 3 11/12/2022 4 Discontinue d(Refill) DULoxetine HCl 30 MG Oral Capsule Delayed Release Particles (Cymbalta)Indicat ions:Major depressive disorder, recurrent episode, moderate (HCC),Paresthesia s Take 1 Capsule by mouth in the morning. Do not cut, crush or chew. 100 Capsule 1 04/10/2023 4 Discontinue d(Refill) LORazepam 1 MG Oral Tablet (Ativan)Indicatio ns:Generalized anxiety disorder Take 1/2 to 1 tablet three times a day as needed 60 Tablet 0 08/17/2023 4 Discontinue d(Refill) documented as of this encounter (statuses as of 11/19/2023) Active Problems Problem Noted Date Diagnosed Date [...] as of this encounter (statuses as of 11/19/2023) Resolved Problems Problem Noted Date Diagnosed Date [...] as of this encounter (statuses as of 11/19/2023) Immunizations Name Administration Dates Next Due COVID-19 mRNA, LNP-s, No Pre serve, 2-Dose Series (Rezzcard) 01/01/2022,07/12/2021,08/25/2020,07/14 COVID-19, MRNA-LNP, 23-24, P F, 30 MCG/0.3 mL, 12 YRS AND ABOVE, IM ([employer]) 07/17/2023 Covid-19, Mrna, Lnp-s, Pf, B ivalent, [...] 05/03/2012,08/01/2011,08/23/2010,06/12,05/17/2008 TDAP (age 10 and older)(Boostrix) 06/14/2021 TDAP (age 11 and older)(Adacel) 09/04/2009 Varicella Zoster Vaccine (Adult) 01/06/2016 Zoster Vaccine Recombinant (Shingrix) 01/17/2022 ,08/02/2021 documented as of this encounter Social History Tobacco Use Types Packs/Day Years Used Date Smoking Tobacco: Every Day Cigarettes 0.5 50 Started: 12/10/1972; Last attempted to quit: 12/10/2022 [...] Sign Reading Time Taken Comments Blood Pressure 123/68 11/18/2023 12:49 PM EDT Pulse 76 11/18/2023 12:49 PM EDT Temperature 36.4 C (97.6 F) 11/18/2023 12:38 PM E DT Respiratory Rate 16 11/18/2023 12:49 PM EDT Oxygen Saturation 93% 11/18/2023 12:49 PM EDT Inhaled Oxygen Concentration - - Weight 72.6 kg (160 lb) 11/18/2023 10:56 AM EDT Height 162.6 cm (5' 4.02") 11/18/2023 10:56 AM E DT Body Mass Index 27.45 11/18/2023 10:56 AM EDT documented in this encounter Functional Status [...] No 01/14/2023 documented as of this encounter H&P Notes * Dawit Mckay MD - 11/18/2023 12:01 PM EDT Endoscopy Pre-Procedure Assessment Name: Malika Gregory Date: 11/18/2023 Time: 12:01 PM Procedure(s): Endoscopic Ultrasound; with Indication(s) of evaluation of abnormalities seen during routine endoscopy Endoscopy Pre-Procedure Assessment: Prior to the procedure, the patient was identified. The patient's history, medications and allergies were reviewed as per the Anesthesia Assessment. The patient is competent. The risks and benefits of the proposed procedure and the planned sedation were discussed with the patient. All questions were answered and informed consent for the procedure was obtained. BP 133/66 | Pulse 82 | Temp 36.5 C (97.7 F) (Tympanic) | Resp 16 | Ht 1.626 m (5' 4.02") | Wt 72.6 kg (160 lb) | LMP 09/08/2007 | SpO2 97% | BMI 27.45 kg/m | BSA 1.81 m Review of patient's allergies indicates: No Known Allergies Prior to Admission medications Medication Sig Last Dose Discont. DULoxetine HCl 30 MG Oral Capsule Delayed Release Particles (Cymbalta) Take 1 Capsule by mouth in the morning do not cut, crush or chew. 11/17/2023 Thiamine HCl 100 MG Oral Tablet (vitamin B-1) Take 1 Tablet by mouth in the morning. 11/17/2023 Varenicline Tartrate 1 MG Oral Tablet Take 1 Tablet by mouth in the morning and 1 Tablet before bedtime. As directed on box.. 11/17/2023 LORazepam 1 MG Oral Tablet (Ativan) Take 1/2 to 1 tablet three times a day as needed 11/18/2023 Gabapentin 600 MG Oral Tablet (Neurontin) Take 1 Tablet by mouth in the morning and 1 Tablet beforebedtime. 11/17/2023 Pantoprazole Sodium 20 MG Oral Tablet Delayed Release (Protonix) TAKE ONE TABLET BY MOUTH IN THE MORNING 30 MINUTES BEFORE THE FIRST MEAL OF THE DAY . DO NOT CUT,CRUSH OR CHEW 11/17/2023 Famotidine 20 MG Oral Tablet (Pepcid) TAKE ONE TABLET BY MOUTH IN THE MORNING AND TAKE ONE TABLET BY MOUTH BEFORE BEDTIME Patient taking differently: Takes at bedtime only. 11/17/2023 Atorvastatin Calcium 20 MG Oral Tablet (Lipitor) Take 1 Tablet by mouth in the morning. 11/17/2023 Albuterol Sulfate HFA 108 (90 Base) MCG/ACT Inhalation Aerosol Solution INHALE 2 PUFFS EVERY 4 HOURS NEEDED FOR WHEEZING. Past Week Isqejhzkwwx-Jfxuvkunp-Dodrve 100-62.5-25 MCG/ACT Aerosol Powder Breath Activated (Trelegy Ellipta) INHALE ONE PUFF BY MOUTH EVERY MORNING 11/18/2023 folic acid 1 MG Tablet Take 1 Tablet by mouth in the morning. 11/17/2023 magnesium chloride ER (MAG-64) 64 MG TBEC Take 125 mg by mouth daily. DC from [facility] 11/17/2023 Vitamin D, Cholecalciferol, 1000 units CAPS Take 1 Capsule by mouth in the morning. \\. 11/17/2023 CALCIUM 500 MG PO TABS Take 600 mg by mouth at bedtime. 11/17/2023 DAILY VALUE MULTIVITAMIN PO TABS Take by mouth at bedtime. 11/17/2023 Abrysvo 120 MCG/0.5ML Intramuscular Solution Reconstituted (RSV Pre-Fusion F A&B Vac Rcmb) Inject 0.5 mL into a large muscle once for 1 dose. Varenicline Tartrate (Starter) 0.5 MG X 11 & 1 MG X 42 Tablet Therapy Pack Take by mouth 0.5 mgonce daily for 3 days then increase to 0.5 mg twice daily for 4 days then increase to 1 mg twice daily metroNIDAZOLE 1 % External Gel (Metrogel) Apply topically to affected area 2 times a day. To affected area. Physical Exam: Mental Status Examination: alert and oriented. Airway Examination: normal oropharyngeal airway and neck mobility. Respiratory Examination: clear to auscultation. CV Examination: Regular rate and rythm, no murmurs. ASA Grade: II - A patient with mild systemic disease. After reviewing the risks and benefits, the patient was deemed in satisfactory condition to undergothe procedure. The anesthesia plan was to use sedation. Patient was explained in detail regarding risks, benefits, limitations and alternatives of the above endoscopic procedure. Risks of intravenous sedation used for procedure were also explained. Risks include, but not limited to perforation, bleeding, infection, respiratory distress, cardiac arrest and . Risk of acute pancreatitis and necrosis if ERCP is done. Patient is also aware about the possibility of missed lesion. Patient's questions were answered. The patient verbalized understandingthe information and agreed to undergo the procedure. Discussed with the patient that he/she is at an explicit higher risk for complications in comparison to other patients Dawit Mckay MD 11/18/2023 documented in this encounter Procedure Notes * Ct Morales DO - 11/18/2023 12:02 PM EDTAssociated Order(s): UPPER ENDOSCOPIC U/S [facility] Patient Name: Malika Gregory Procedure Date: 11/18/2023 12:02 PM Date of : 1955 Admit Type: Outpatient Note Status: Finalized Date of : 1955 Admit Type: Outpatient Age: 68 Room: Advanced Endo Gender: Female Note Status: Finalized Procedure: Upper EUS Indications: Esophageal deformity on endoscopy/Subepithelial tumor vs. extrinsic compression Providers: Dawit Mckay MD (Doctor), Ajit Quiroz RN Referring MD: Ct Morales (Referring ), Barb Dunn MD (Referring MD) Medicines: Propofol per Anesthesia Complications: No immediate complications. Procedure: Pre-Anesthesia Assessment: - Prior to the procedure, a History and Physical was performed, and patient medications, allergies and sensitivities were reviewed. The patient's tolerance of previous anesthesia was reviewed. - The risks and benefits of the procedure and the sedation options and risks were discussed with the patient. All questions were answered and informed consent was obtained. - Patient identification and proposed procedure were verified prior to the procedure by the physician and the nurse. The procedure was verified in the procedure room. - Pre-procedure physical examination revealed no contraindications to sedation. After obtaining informed consent, the endoscope was passed under direct vision. All instruments were visually inspected immediately before and after removal from the patient to ensure they are fully intact. Throughout the procedure, the patient's blood pressure, pulse, and oxygen saturations were monitored continuously. The GF-UE160 Endoscope ([id number]) was introduced through the mouth, and advanced to the second part of duodenum. The upper EUS was accomplished without difficulty. The patient tolerated the procedure well. Findings & Specimens: ENDOSONOGRAPHIC FINDING: : A round intramural (subepithelial) lesion was found in the lower third of the esophagus. The lesionwas anechoic. Sonographically, the origin appeared to be within the deep mucosa (Layer 2). The mass measured up to 7 mm in thickness. The endosonographic borders were well-defined. A needle was advanced in the cyst and content aspiration resulted in complete deflation of the cyst confirming diagnosis. Impression: - An anechoic intramural lesion was found in the lower third of the esophagus originating from within the deep mucosa (Layer 2). The diagnosis is a benign cyst. - No specimens collected. Recommendation: - Discharge patient to home. - Return to referring physician. Dawit Mckay MD 11/18/2023 12:36:34 PM This report has been signed electronically. documented in this encounter Nursing Notes * Yoana Junior RN - 11/18/2023 1:27 PM EDT Patient is alert, pain free, and tolerating po fluids prior to discharge. Patient has been visited by Dr. Mckay. Patient has received and demonstrates understanding of discharge instructions. Patient is escorted to private auto accompanied by endo staff. * Yoana Junior RN - 11/18/2023 12:38 PM EDT Patient transferred to post endo s/p EUS. Patient drowsy but oriented x 4. Denies c/o. Respirations are even and unlabored on room air. NSR in the 70s on the monitor. Abdomen soft and non distended. Vital signs stable. * Kevin Quiroz RN - 11/18/2023 12:32 PM EDT See anesthesia record for medication administered during procedure. Kevin Quiroz RN Pre cleaning of scope at the bedside started by general maintenance technician. * Rajni Meehan RN - 11/18/2023 10:59 AM EDT The following pt discharge instructions reviewed with pt prior to prodedure: No driving today. No alcohol today. No signing of legal documents. Rest as much as possible today and can return to normal activities tomorrow. No operating any heavy equipment today. Diet as tolerated. Pt verbalized understanding. Patient prepped, mckee within reach of patient. documented in this encounter Plan of Treatment Upcoming Encounters Date Type Department Care Team (Late st Contact Info) Description 11/20/2023 1:30 PM EDT Telemedicine Family Practice [address] [facility] [address] [facility], [place] [phone] College, Pharmacist [address] [place] [address] 12/31/2023 10:40 AM EDT Office Visit [facility] [address] [facility] [address] Mellissa Blanco PA-C [address] [place] [address] [place] [address] 02/05/2024 2:20 PM EDT Office Visit Family Practice [address] [place] [address] [facility] [place] [address] [address] Morales DO [address] [facility] [place] [address] 04/05/2024 2:00 PM EDT Office Visit Hepatology, [facility] [address] [facility] [place] [address] Ashley Cheema MD [address] [place] [phone] Scheduled Procedures Name Priority Associated Diagnoses Date/Ti me COLONOSCOPY FLEXIBLE PROXIMA L DIAGNOSTIC Recall Encounter for screening colonoscopy Health Maintenance Due Date Last Done Comments DISCUSS TOBACCO CESSATION (REFER TO SMARTSET #[id number]) 1955 Cologuard 1998 Fecal Occult Blood Test 1998 Sigmoidoscopy 1998 Hepatitis B (1 of 3 - Risk 3-dose series) 2013 *ADVANCE DIRECTIVE NOT ON FILE 01/20/2022 Mammogram 01/01/2024 12/31/2022, 12/12, 10/18/2021, Additional history exists HbA1c 01/16/2024 01/15/2023, 08/13, 06/14/2021, Additional history exists GFR 01/26/2024 01/25/2023, 01/10, 01/23/2023, Additional history exists O2 ASSESSMENT COMPLETED IN PAST YEAR FOR [...] Completed , 04/16/2022, 06/14/2021, Additional history exists COVID-19 Vaccine Completed 07/17/2023, , 06/25/2022, Additional history exists GARDASIL-HPV IMMUNIZATION SERIES Aged Out No longer eligible based on patient's age to complete this topic MENINGOCOCCAL (MENACTRA/MENVEO) Aged Out No longer eligible based on patient's age to complete this topic documented as of this encounter Medical Devices Not on filedocumented as of this encounter Procedures Procedure Name Priority Date/Time Associated Diagnosis Comments UPPER ENDOSCOPIC U/S 11/18/2023 12:02 PM EDT documented in this encounter Results * UPPER ENDOSCOPIC U/S (11/18/2023 12:02 PM EDT) 11/18/2023 12:0 2 PM EDT Narrative Procedure Note Ct Morales DO - 11/18/2023 12:02 PM EDT [facility] Patient Name: Malika Gregory Procedure Date: 11/18/2023 12:02 PM Date of : 1955 Admit Type: Outpatient Note Status:Finalized Date of : 1955 Admit Type: Outpatient Age: 68 Room: [facility] Gender: Female Note Status: Finalized Procedure: Upper EUS Indications: Esophageal deformity on endoscopy/Subepithelialtumor vs. extrinsic compression Providers: Dawit Mckay MD (Doctor), Ajit Quiroz RN Referring MD: Ct Morales (Referring MD), MD Beto (Referring MD) Medicines: Propofol per Anesthesia Complications: No immediate complications. Procedure: Pre-Anesthesia Assessment: - Prior to the procedure, a History and Physicalwas performed, and patient medications, allergies and sensitivities werereviewed. The patient's tolerance of previous anesthesia was reviewed. - The risks and benefits of the procedure and thesedation options and risks were discussed with the patient. All questions wereanswered and informed consent was obtained. - Patient identification and proposed procedurewere verified prior to the procedure by the physician and the nurse. The procedure wasverified in the procedure room. - Pre-procedure physical examination revealed nocontraindications to sedation. After obtaining informed consent, the endoscope waspassed under direct vision. All instruments were visually inspected immediatelybefore and after removal from the patient to ensure they are fully intact. Throughout the procedure, the patient's bloodpressure, pulse, and oxygen saturations were monitored continuously. The GF-UE160 Endoscope([id number]) was introduced through the mouth, and advanced to the second part ofduodenum. The upper EUS was accomplished without difficulty. The patienttolerated the procedure well. Findings & Specimens: ENDOSONOGRAPHIC FINDING: : A round intramural (subepithelial) lesion was found in the lowerthird of the esophagus. The lesion was anechoic. Sonographically, the origin appeared to be within the deepmucosa (Layer 2). The mass measured up to 7 mm in thickness. The endosonographic borders werewell-defined. A needle was advanced in the cyst and content aspiration resulted in complete deflation ofthe cyst confirming diagnosis. Impression: - An anechoic intramural lesion was found in thelower third of the esophagus originating from within the deep mucosa (Layer 2).The diagnosis is a benign cyst. - No specimens collected. Recommendation: - Discharge patient to home. - Return to referring physician. Dawit Mckay MD 11/18/2023 12:36:34 PM This report has been signed electronically. Ct M Holencik DO GASTRO UPPER documented in this encounter Administered Medications Inactive Administered Medications - up to 3 most recent administrations Medication Order MAR Action Action Date Dose Rate Site isolyte-S pH 7.4 infusion Intravenous, at 100 mL/hr, Plasma-LYTE 148, isolyte-S, and isolyte-S pH 7.4 are considered equivalent - including for MAR barcode scanning., CONTINUOUS, Starting on Thu11/18/23 at 1115, Until Thu11/18/23 at 1732, Pre-Op Continue from Pre-Op 11/18/2023 12:08 PM EDT 100 mL/hr New Bag 11/18/2023 10:58 AM EDT 100 mL/hr documented in this encounter Active and Recently Administered Medications Times are shown in EDT. Continuous Medication Order 11/16/2023 11/17/2023 11/18/2023 isolyte-S pH 7.4 infusion Intravenous, at 100 mL/hr, Plasma-LYTE 148, isolyte-S, and isolyte-S pH 7.4 are considered equivalent - including for MAR barcode scanning., CONTINUOUS, Starting on Thu11/18/23 at 1115, Until Thu11/18/23 at 1732, Pre-Op 1058 (New Bag - Prov ider: Rajni Meehan RN)1208 (Continue from Pre-Op - Provider: Baldemar Willams CRNA)1233 (Anes Intra-Op Fluid - Provider: Baldemar Willams CRNA) documented in this encounter Advance Directives Documents on File Type Date Recorded Patient Email Manager Expl anation Power of Behavioral Health Assistant 01/11/2023 Porter Gregory POWER OF RN SURGERY ICU Latest Code Status on File Code Status Date Activated Date Inactivated Comments Full Code 01/14/2023 2:09 PM 01/25/2023 6:20 PM This o rder reflects the patients wishes and were consensually agreed upon. Question Answer Comments Discussion of Advance Directives occurred with: Patient Does the patient have a Living Will? No Does the patient have Health Care Power of Behavioral Health Assistant? No Code Status History Code Status Date Activated Date Inactivated Comments Full Code 01/26/2020 9:51 PM 01/30/2020 11:50 PM This order reflects the patients wishes and were consensually agreed upon. Question Answer Comments Discussion of Advance Directives occurred with: Patient Full Code 01/26/2020 9:21 PM 01/26/2020 9:51 PM This order reflects the patients wishes and were consensually agreed upon. Question Answer Comments Discussion of Advance Directives occurred with: Not Discussed Healthcare Agents on File Name Relationship Healthcare Agent [facility] p Communication Porter Gregory Adult Child Health Care Agen t (per Health Care Power of Behavioral Health Assistant document) Care Teams [employer] Relationship Specialty Start Date End Date Ct Morales DO [address] [place] [address] PCP - General Family Medicine 01/17/22 documented as of this encounter
--- OUTSIDE RECORDS SUMMARY | 2024-04-20 08:55 | External Medical Summary | Summary of Care ---
Author Name Unknown Organization [facility] Address [address] [facility] [place] [address] Phone [phone] Care Team Providers Care Outside Sales Name Role Phone Ct Morales DO Primary Care Provider Reason for Visit * Reason Onset Date Comments Pre Op Discussion 11/11/2023 Encounter Details Date Type Department Care Team (Late st Contact Info) Description 11/11/2023 Telephone OR [facility], Operating Room [facility] [address] [place] [phone] Dawit Mckay MD [address] [place] [address] Pre Op Discussion Allergies No known active allergiesdocumented as of this encounter (statuses as of 11/16/2023) Medications Medication Sig Dispensed Refills Start Date [...] Capsule by mouth in the morning. \. 0 04/16/2018 Active magnesium chloride ER (MAG-64) 64 MG TBECIndications:Ho spital discharge follow-up,Sepsis, due to unspecified organism,Alcohol use,Hypomagnesemia Take 125 mg by mouth daily. DC from [facility] 0 04/16/2018 Active metroNIDAZOLE 1 % External [...] MOUTH EVERY MORNING 180 Each 3 12/04/2022 12/22/2023 Active Atorvastatin Calcium 20 MG Oral Tablet [...] 1 mg twice daily 1 Each 0 10/26/2023 Active DULoxetine HCl 30 MG Oral Capsule Delayed Release Particles (Cymbalta)Indicati ons:Major depressive disorder, recurrent episode, moderate (HCC),Paresthesias Take 1 Capsule by mouth in the morning do not cut, crush or chew. 100 Capsule 1 11/07/2023 Active Thiamine HCl 100 MG Oral Tablet (vitamin B-1) Take 1 Tablet by mouth in the morning. 90 Tablet 1 11/06/2023 Active documented as of this encounter (statuses as of 11/16/2023) Active Problems Problem Noted Date Diagnosed Date [...] as of this encounter (statuses as of 11/16/2023) Resolved Problems Problem Noted Date Diagnosed Date [...] as of this encounter (statuses as of 11/16/2023) Immunizations Name Administration Dates Next Due COVID-19 mRNA, LNP-s, No Pre serve, 2-Dose Series ([employer]) 01/01/2022,07/12/2021,08/25/2020,07/14 COVID-19, MRNA-LNP, 23-24, P F, 30 MCG/0.3 mL, 12 YRS AND ABOVE, IM (Tradeo-Comirnaty) 07/17/2023 Covid-19, Mrna, Lnp-s, Pf, B ivalent, [...] Upcoming Encounters Date Type Department Care Team (Latest Contact Info) Description 4 11:15 AM EDT Hospital Encounter ENDO [facility], Endoscopy Room [facility] [address] [place] [phone] Dawit Mckay MD [address] [place] [address] 4 11:15 AM EDT - 4 12:15 PM EDT Surgery ENDO [facility], Endoscopy Room [facility] [address] [place] [phone] Dawit Mckay MD [address] [place] [address] ESOPHAGOGASTRODUODENOSCOPY (EGD), FLEXIBLE, TRANSORAL, ENDOSCOPIC ULTRASOUND 4 1:30 PM EDT Telemedicine Family Practice 65 [facility] 293 [place] [phone] College, Pharmacist 65 [facility] 293 [place] [address] 4 10:40 AM EDT Office Visit Dermatology, [address] [address] Mellissa Blanco PA-C [address] [place] [address] [place] [address] 4 2:20 PM EDT Office Visit Family Practice 65 [facility] 293 [place] [phone] Ct Morales 293 [place] [address] 4 2:00 PM EDT Office Visit Hepatology, [facility] 132 [facility] [place] [address] Ashley Cheema MD [address] [place] [address] Scheduled Procedures Name Priority Associated Diagnoses Date/Ti me ESOPHAGOGASTRODUODENOSCOPY ( EGD), FLEXIBLE, TRANSORAL, ENDOSCOPIC ULTRASOUND Nodule of esophagus 11/18/2023 11:15 AM EDT COLONOSCOPY FLEXIBLE PROXIMA L DIAGNOSTIC Recall Encounter for screening colonoscopy Health Maintenance Due Date Last Done Comments DISCUSS TOBACCO CESSATION (REFER TO SMARTSET #4465) 1953 Cologuard 1998 Fecal Occult Blood Test 1998 Sigmoidoscopy 1998 Hepatitis B (1 of 3 - Risk 3-dose series) 2013 *ADVANCE DIRECTIVE NOT ON FILE 01/20/2022 Mammogram 01/01/2024 12/31/2022, 12/12, 10/18/2021, Additional history exists HbA1c 01/16/2024 01/15/2023, 08/13, 06/14/2021, Additional history exists GFR 01/26/2024 01/25/2023, 01/10, 01/23/2023, Additional history exists O2 ASSESSMENT COMPLETED IN PAST YEAR FOR COPD 06/22/2024 06/22/2023 Albumin/Creatinine Ratio 01/17/2025 01/17/2022, 08/13 DXA Scan [...] Documents on File Type Date Recorded Patient Diesel Scoop Operator Expl anation Power of Bilingual Hr Generalist 01/11/2023 Porter Gregory POWER OF HOISTING ENGINEER Latest Code Status on File Code Status Date Activated Date Inactivated Comments Full Code 01/14/2023 2:09 PM 01/25/2023 6:20 PM This o rder reflects the patients wishes and were consensually agreed upon. Question Answer Comments Discussion of Advance Directives occurred with: Patient Does the patient have a Living Will? No Does the patient have Health Care Power of Bilingual Hr Generalist? No Code Status History Code Status Date [...] Agen t (per Health Care Power of Bilingual Hr Generalist document) Care Teams Outside Sales Relationship Specialty Start Date End Date Ct Morales DO [address] [place] [address] PCP - General Family Medicine 01/17/22 documented as of this encounter
--- OUTSIDE RECORDS SUMMARY | 2024-04-20 08:55 | External Medical Summary | Summary of Care ---
Author Name Unknown Organization [facility] Address [address] [place] [facility] [place] [address] Phone [phone] Care Team Providers Care Gun Perforator Name Role Phone Ct Morales DO Primary Care Provider Encounter Details Date Type Department Care Team (Late st Contact Info) Description 08/17/2023 Telephone OR [facility], Operating Room [facility] [address] [place] [phone] Dawit Mckay MD [address] [place] [address] Allergies No known active allergiesdocumented as of [...] 125 mg by mouth daily. DC from [facility] 0 04/16/2018 Active metroNIDAZOLE 1 % External [...] before bedtime. 200 Tablet 1 07/17/2023 Active THIAMINE (VITAMIN B-1) 100 MG Tablet [...] mRNA, LNP-s, No Pre serve, 2-Dose Series ([employer]) 01/01/2022,07/12/2021,08/25/2020,07/14 COVID-19, MRNA-LNP, 23-24, P F, 30 MCG/0.3 mL, 12 YRS AND ABOVE, IM (PFIZER-Comirnaty) 07/17/2023 Covid-19, Mrna, Lnp-s, Pf, B ivalent, 30 Mcg, IM, 12 yrs and above (Pfizer) 01/08/2023,06/25/2022 H1N1 2009 Influenza, IM 06/29/2009 Pneumococcal Conjugate Vacc, 13 Valent (Prevnar) 08/10/2018 Pneumococcal Polysaccharide PPV23 (Pneumovax) 01/17/2022,08/01/2011 Season Influenza, Quad, PF, Adjuvanted, 65+ Yrs, [...] encounter Miscellaneous Notes * Telephone Encounter - Sanaz Perera RN - 08/20/2023 9:44 AM EST Attempted to call for pre anesthesia evaluation. No answer. Voice mail left requesting return call * Telephone Encounter - Sanaz Perera RN - 08/17/2023 1:33 PM EST Attempted to call for pre anesthesia evaluation. No answer. Voice mail left requesting return call documented in this encounter Plan of Treatment Upcoming Encounters Date Type Department Care Team (Latest Contact Info) Description 4 11:15 AM EDT Hospital Encounter ENDO [facility], Endoscopy Room [facility] [address] [place] [phone] Dawit Mckay MD [address] [place] [address] 4 11:15 AM EDT - 4 12:15 PM EDT Surgery ENDO [facility], Endoscopy Room [facility] 132 [facility] [place] [phone] Dawit Mckay MD 132 [facility] [place] [address] ESOPHAGOGASTRODUODENOSCOPY (EGD), FLEXIBLE, TRANSORAL, ENDOSCOPIC ULTRASOUND 4 1:30 PM EDT Telemedicine Family [facility] 65 [facility] 293 [facility] [place] [phone] [place], Pharmacist 65 [facility] 293 [facility] [place] [place] [address] 4 10:40 AM EDT Office Visit Dermatology[address] [address] Mellissa Blanco PA-C [address] [place] [address] [place] [address] 4 2:20 PM EDT Office Visit [address] 293 [facility] [place] [place] [phone] Ct Morales DO 293 [facility] [address] 4 2:00 PM EDT Office Visit Hepatology, [facility] 132 [facility] [place] [address] Ashley Cheema MD [address] [place] [phone] Scheduled Procedures Name Priority Associated Diagnoses Date/Ti [...] Documents on File Type Date Recorded Patient Hand Meat Salter Expl anation Power of Rivet Heater Gas 01/11/2023 Porter Gregory POWER OF AREA REPRESENTATIVE Latest Code Status on File Code Status Date Activated Date Inactivated Comments Full Code 01/14/2023 2:09 PM 01/25/2023 6:20 PM This o rder reflects the patients wishes and were consensually agreed upon. Question Answer Comments Discussion of Advance Directives occurred with: Patient Does the patient have a Living Will? No Does the patient have Health Care Power of Rivet Heater [employer]? No Code Status History Code Status Date [...] Agen t (per Health Care Power of Rivet Heater [employer] document) Care Teams Gun Perforator Relationship Specialty Start Date End Date Ct Morales DO 293 [place] [address] PCP - General Family Medicine 01/17/22 documented as of this encounter
--- OUTSIDE RECORDS SUMMARY | 2024-04-20 08:55 | External Medical Summary | Summary of Care ---
Author Name Unknown Organization [facility] Address [address] [place] [address] Phone [phone] Care Team Providers Care Buhr Dresser Name Role Phone Ct Morales Primary Care Provider Encounter Details Date Type Department Care Team (Late st Contact Info) Description 12/17/2023 Population Health External Data Unspecified Department Allergies No known active allergiesdocumented as of this encounter (statuses as of 12/17/2023) Medications Medication Sig Dispensed Refills Start Date [...] per day 100 Each 3 11/20/2023 Active documented as of this encounter (statuses as of 12/17/2023) Active Problems Problem Noted Date Diagnosed Date [...] as of this encounter (statuses as of 12/17/2023) Resolved Problems Problem Noted Date Diagnosed Date [...] as of this encounter (statuses as of 12/17/2023) Immunizations Name Administration Dates Next Due COVID-19 mRNA, LNP-s, No Pre serve, 2-Dose Series ([employer]) 01/01/2022,07/12/2021,08/25/2020,07/14 COVID-19, MRNA-LNP, 23-24, P F, 30 [...] Care Team (Late st Contact Info) Description 12/31/2023 10:40 AM EDT Office Visit [address] [address] Mellissa Blanco PA-C [address] [place] [address] [place] [address] 01/01/2024 11:30 AM EDT Telemedicine Family Practice [address] [place] [address] 293 [facility], [place] [phone] College, Pharmacist [address] [place] [address] 02/05/2024 2:20 PM EDT Office Visit Family Practice [address] [place] [address] 293 [facility] [place] [phone] Ct Morales, DO 293 [facility], [place] [address] 04/05/2024 2:00 PM EDT Office Visit Hepatology, [facility] [address] [place] [address] Ashley Cheema MD [address] [place] [address] Scheduled Procedures Name Priority Associated Diagnoses Date/Ti me COLONOSCOPY FLEXIBLE PROXIMA L DIAGNOSTIC Recall Encounter for screening colonoscopy Health Maintenance Due Date Last Done Comments DISCUSS TOBACCO CESSATION (REFER TO SMARTSET #3428) 1953 Cologuard 1998 Fecal Occult Blood Test [...] Documents on File Type Date Recorded Patient Head Of Research & Insights Expl anation Power of Guest Services Representative 01/11/2023 Porter Gregory POWER OF MARKET RESEARCH ASSOCIATE * Full Code (Latest Code Status on [...] Agen t (per Health Care Power of Guest Services Representative document) Care Teams Buhr Dresser Relationship Specialty Start Date End Date Ct Morales DO [address] [place] [address] PCP - General Family Medicine 01/17/22 documented as of this encounter
--- OUTSIDE RECORDS SUMMARY | 2024-04-20 08:55 | External Medical Summary | Summary of Care ---
Author Name Unknown Organization [facility] Address [address] [place] [address] Phone [phone] Care Team Providers Care Corporate Director Talent Assessment Name Role Phone Ct Morales DO Primary Care Provider Reason for Visit * Reason Comments Dosage Adjustment Via Phone (anticoag Cl inic) Smoking Cessation Encounter Details Date Type Department Care Team (Late st Contact Info) Description 11/20/2023 1:30 PM EDT Telemedicine Family Practice 65 [facility] 293 [place] [address] College, Pharmacist [address] [address] Cigarette smoker*; Tobacco abuse; Tobacco use; COPD, group C, by GOLD 2017 classification ([facility]) Allergies No known active allergiesdocumented as of this encounter (statuses as of 11/20/2023) Medications Medication Sig Dispensed Refills Start Date [...] 125 mg by mouth daily. DC from [facility] 0 04/16/2018 Active metroNIDAZOLE 1 % [...] as of this encounter (statuses as of 11/20/2023) Active Problems Problem Noted Date Diagnosed Date [...] as of this encounter (statuses as of 11/20/2023) Resolved Problems Problem Noted Date Diagnosed Date [...] as of this encounter (statuses as of 11/20/2023) Immunizations Name Administration Dates Next Due COVID-19 mRNA, LNP-s, No Pre serve, 2-Dose Series ([employer]) 01/01/2022,07/12/2021,08/25/2020,07/14 COVID-19, MRNA-LNP, 23-24, P F, 30 [...] this encounter Progress Notes * Alexandra Leon, [facility] - 11/20/2023 1:48 PM EDT Medication Therapy Disease Management - Smoking Cessation HPI: Social History Tobacco Use Smoking Status Every Day Current packs/day: 0.50 Average packs/day: 0.5 packs/day for 50.0 years (25.0 ttl pk-yrs) Types: Cigarettes Start date: 12/10/1972 Last attempt to quit: 12/10/2022 Passive exposure: Past Smokeless Tobacco Never How many cigarettes do you smoke in one day? 10 cpd How soon do you smoke your first cigarette upon wakening? More than 30 minutes How long have you been smoking? Since 16 years old Location:In home and Outside home What are your triggers? after a meal and in the car Have you picked a quit date? If so when? YES 12/08 Have you ever tried quitting in the past? If so, did you use any medications to help you? How long did you quit for? Why did you begin to smoke again? Wellbutrin- several years ago ; did not help Nicotine patch - worked Nicotine gum/lozenge - taste Comorbidities which discourage use of: Bupropion: none Chantix: alcohol use- will monitor closely Nicotine replacement therapy: none Objective: BP Readings from Last 3 Encounters: 11/18/23 123/68 11/06/23 130/76 07/17/23 128/80 Pulse Readings from Last 3 Encounters: 11/18/23 76 11/06/23 94 07/17/23 90 Wt Readings from Last 3 Encounters: 11/18/23 72.6 kg (160 lb) 11/06/23 75.5 kg (166 lb 6.4 oz) 07/17/23 71.9 kg (158 lb 9.6 oz) Assessment & Plan: The patient was instructed as to the detrimental effects of Tobacco & the serious impact that it has upon their health, especially their current condition, COPD. Discussed that smoking affects not only the patient's health but the health of their family members, children and others exposed to second hand tobacco smoke. Discussed the advantages of tobacco cessation: slow progression of their underlying disease, improve lung function and reduce risk for development of cancer and other tobacco related illnesses. Referral to [place] Department of Health/[place] [employer] Free Quitline: . Tobacco Use Disorder -Chantix 1 mg BID -Goal by 11/24: reduce 5 CPD -Quit date: 12/08 Currently on Chantix and tolerating well. Has been able to cut her current use of cigarette in halfwhile using Chantix for 1 month. Also utilizes behavioral strategies such as dumb dumb pops, countscigarettes or the day, and keeping extra cigarettes in the car. Recommended use of nicotine gum forcravings. Pt agreeable. Will continue Chantix and monitor alcohol use. Pt admits to 1 cocktail every other day. Educated patient on nicotine gum. Instructed patient to start 2 mg nicotine gum. Encouraged patientto use at least 9 pieces/day for best success, maximum of 24 pieces/day. Educated patient to wait 15 minutes after eating or drinking before use. Instructed patient to chew gum slowly, when they feeltingling or a flavored taste, park the gum between cheek and gum so nicotine can be absorbed. When t ingling or flavor goes away, begin to chew again. Each piece of gum can be used for 30 minutes or until flavor is gone. Educated patient on possible side effects such as headache, dizziness, and nausea. Pt was educated on smoking cessation and/or tobacco cessation for: 20 minutes Tobacco Cessation Counseling Attempt: first Start Date: 11/20/23 Today's Visit #: 1 (max 4) Follow up: 3 weeks Alexandra Leon RPh Clinical Pharmacist Medication Therapy Disease Management 11/20/2023, 1:48 PM documented in this encounter Plan of Treatment Upcoming Encounters Date Type Department Care Team (Late st Contact Info) Description 12/11/2023 1:30 PM EDT Telemedicine Family Practice 65 [facility] 293 [place] [address] College, Pharmacist 65 [facility] 293 [place] [address] 12/31/2023 10:40 AM EDT Office Visit Dermat[address] [address] Mellissa Blanco PA-C [address] [place] [address] [place] [address] 02/05/2024 2:20 PM EDT Office Visit Family Practice 65 [facility] 293 [place] [address] Ct Morales DO 293 [place] [address] 04/05/2024 2:00 PM EDT Office Visit Hepatology, [facility] 132 [facility] [place] [address] Ashley Cheema MD [address] [place] [address] Scheduled Procedures Name Priority Associated Diagnoses Date/Ti me COLONOSCOPY FLEXIBLE PROXIMA L DIAGNOSTIC Recall Encounter for screening colonoscopy Health Maintenance Due Date Last Done Comments DISCUSS TOBACCO CESSATION (REFER TO SMARTSET #3298) 1953 Cologuard 1998 Fecal Occult Blood Test [...] as of this encounter Visit Diagnoses Diagnosis Cigarette smoker- Primary Tobacco use disorder Tobacco abuse Tobacco use disorder Tobacco use Tobacco use disorder COPD, group C, by GOLD 2017 classification ([facility]) documented in this encounter Advance Directives Documents on File Type Date Recorded Patient Professor Of Forestry Expl anation Power of Outreach Consultant 01/11/2023 Porter Gregory POWER OF NEUROSURGICAL NURSE PRACTITIONER Latest Code Status on File Code Status Date Activated Date Inactivated Comments Full Code 01/14/2023 2:09 PM 01/25/2023 6:20 PM This o rder reflects the patients wishes and were consensually agreed upon. Question Answer Comments Discussion of Advance Directives occurred with: Patient Does the patient have a Living Will? No Does the patient have Health Care Power of Outreach Consultant? No Code Status History Code Status Date [...] Agen t (per Health Care Power of Outreach Consultant document) Care Teams Corporate Director Talent Assessment Relationship Specialty Start Date End Date Ct Morales DO [address] [place] [address] PCP - General Family Medicine 01/17/22 documented as of this encounter
--- OUTSIDE RECORDS SUMMARY | 2024-04-20 08:55 | External Medical Summary | Summary of Care ---
Author Name Unknown Organization [facility] Address [address] [place] [address] Phone [phone] Care Team Providers Care Retail Sales Teammate Name Role Phone Ct Morales DO Primary Care Provider [phone] Reason for Visit * Reason Comments Dosage Adjustment Via Phone (anticoag Cl inic) Smoking Cessation Encounter Details Date Type Department Care Team (Late st Contact Info) Description 12/11/2023 1:30 PM EDT Telemedicine Family Practice 65 [facility] 293 [place] [address] College, Pharmacist [address] [address] Tobacco use*; COPD, group C, by GOLD 2017 classification (HCC); Cigarette smoker Allergies No known active allergiesdocumented as of this encounter (statuses as of 12/11/2023) Medications Medication Sig Dispensed Refills Start Date [...] by mouth daily. DC from [facility] 04/16/2018 Active metroNIDAZOLE 1 % External Gel [...] as of this encounter (statuses as of 12/11/2023) Active Problems Problem Noted Date Diagnosed Date [...] as of this encounter (statuses as of 12/11/2023) Resolved Problems Problem Noted Date Diagnosed Date [...] as of this encounter (statuses as of 12/11/2023) Immunizations Name Administration Dates Next Due COVID-19 mRNA, LNP-s, No Pre serve, 2-Dose Series ([employer]) 01/01/2022,07/12/2021,08/25/2020,07/14 COVID-19, MRNA-LNP, 23-24, P F, 30 [...] of this encounter Progress Notes * Alexandra Leon [facility] - 12/11/2023 11:52 AM EDT Medication Therapy Disease Management - Smoking [...] Tobacco Use Disorder -Chantix 1 mg BID -Nicotine gum 2 mg PRN -Goal by 12/31: reduce 5 CPD Currently on Chantix and tolerating well. Notes doing better in the mornings on cutting back on hercigarettes compared to evenings. Feels she has more free time to think about smoking then. Notes ptis still smoking 10 cpd. Pt admits never started nicotine gum because pharmacy told her the refill was for chantix not nicotine gum. Triggers still include after she eats and when she watches tv. Will continue with plan to use nicotine gum PRN with Chantix. Rx for nicotine already sent to [facility] pharmacy on 11/19. Informed pt to call us if pharmacy states they have not received it. Educated patient on nicotine gum. Instructed patient [...] first Start Date: 11/20/23 Today's Visit #: 2 (max 4) Follow up: 3 weeks Alexandra Leon RPh Clinical Pharmacist Medication Therapy Disease Management 12/11/2023, 11:53 AM documented in this encounter Plan of Treatment Upcoming Encounters Date Type Department Care Team (Late st Contact Info) Description 12/31/2023 10:40 AM EDT [place] [address] [address] [facility] [place] [address] Mellissa Blanco PA-C [address] [place] [address] [place] [address] 01/01/2024 11:30 AM EDT Telemedicine Family Practice 65 [facility] 293 [place] [phone] College, Pharmacist 65 [facility] 293 [place] [address] 02/05/2024 2:20 PM EDT Office Visit Family Practice 65 [facility] 293 [place] [phone] Ct Morales, DO 293 [place] [address] 04/05/2024 2:00 PM EDT Office Visit Hepatology, [facility] 132 [facility] [place] [address] Ashley Cheema MD [address] [place] [phone] Scheduled Procedures Name Priority Associated Diagnoses Date/Ti me COLONOSCOPY FLEXIBLE PROXIMA L DIAGNOSTIC Recall Encounter for screening colonoscopy Health Maintenance Due Date Last Done Comments DISCUSS TOBACCO CESSATION (REFER TO SMARTSET #9993) 1955 Cologuard 1998 Fecal Occult Blood Test [...] group C, by GOLD 2017 classification (HCC) Cigarette smoker Tobacco use disorder documented in this encounter Advance Directives Documents on File Type Date Recorded Patient Lone Lead Lineman Expl anation Power of Equity Structurer 01/11/2023 Porter Gregory POWER OF DIVING JUDGE * Full Code (Latest Code Status on [...] Agents on File Name Relationship Healthcare Agent [facility] Communication Porter Gregory Adult Child Health Care Roberto Carlosn t (per Health Care Power of Equity Structurer document) Care Teams Retail Sales Teammate Relationship Specialty Start Date End Date Ct Morales DO [address] [place] [address] PCP - General Family Medicine 01/17/22 documented as of this encounter
--- OUTSIDE RECORDS SUMMARY | 2024-04-20 08:56 | External Medical Summary | Summary of Care ---
Author Name Unknown Organization [facility] Address [address] [place] [address] Phone [phone] Care Team Providers Care Slasher Operator Name Role Phone Ct Morales DO Primary Care Provider Reason for Visit * Reason Onset Date Comments Appointment 11/06/2023 Derm Encounter Details Date Type Department Care Team (Late st Contact Info) Description 11/06/2023 Telephone Family Practice [address], [place] [address] [place] [phone] Ct Morales DO [address] [place] [address] Appointment (Derm ) Allergies No known active allergiesdocumented as of this encounter (statuses as of 11/09/2023) Medications Medication Sig Dispensed Refills Start Date [...] Active magnesium chloride ER (MAG-64) 64 MG TBECIndications:Hos pital discharge follow-up,Sepsis, due to unspecified organism,Alcohol use,Hypomagnesemia Take 125 mg by mouth daily. DC from [facility] 0 04/16/2018 Active metroNIDAZOLE 1 % External Gel (Metrogel)Indicatio ns:Perioral dermatitis Apply topically to affected area 2 times a day. To affected area. 30 g 5 10/09/2022 Active Albuterol Sulfate HFA 108 (90 Base) MCG/ACT Inhalation Aerosol SolutionIndications :Wheezing,Tobacco use disorder INHALE 2 PUFFS EVERY 4 HOURS NEEDED FOR WHEEZING. 18 g 2 01/13/2023 Active Fluticasone-Umeclid in-Vilant 100-62.5-25 MCG/ACT Aerosol Powder Breath Activated (Trelegy Ellipta) INHALE ONE PUFF BY MOUTH EVERY MORNING 180 Each 3 12/04/2022 12/22/2023 Active Atorvastatin Calcium 20 MG Oral Tablet (Lipitor)Indication s:Dyslipidemia, goal LDL below 100 Take 1 Tablet [...] Sodium 20 MG Oral Tablet Delayed Release (Protonix)Indicatio ns:Colonic diverticular abscess,Liver abscess TAKE ONE TABLET BY MOUTH IN THE MORNING 30 MINUTES BEFORE THE FIRST MEAL OF THE DAY . DO NOT CUT,CRUSH OR CHEW 90 Tablet 1 07/16/2023 Active Gabapentin 600 MG Oral Tablet (Neurontin)Indicati ons:Paresthesias Take 1 Tablet by mouth in the morning and 1 Tablet before bedtime. 200 Tablet 1 07/17/2023 Active LORazepam 1 MG Oral Tablet (Ativan)Indications :Generalized anxiety disorder Take 1/2 to 1 tablet three times a day as needed 60 Tablet 0 09/29/2023 Active Varenicline Tartrate 1 MG Oral TabletIndications:T obacco abuse Take 1 Tablet by mouth in the morning and 1 Tablet before bedtime. As directed on box.. 60 Tablet 3 10/26/2023 Active Varenicline Tartrate (Starter) 0.5 MG X 11 & 1 MG X 42 Tablet Therapy PackIndications:Tob acco abuse Take by mouth 0.5 mg once daily for 3 days then increase to 0.5 mg twice daily for 4 days then increase to 1 mg twice daily 1 Each 0 10/26/2023 Active Thiamine HCl 100 MG Oral Tablet (vitamin B-1) Take 1 Tablet by mouth in the morning. 90 Tablet 1 11/06/2023 Active documented as of this encounter (statuses as of 11/09/2023) Active Problems Problem Noted Date Diagnosed Date [...] as of this encounter (statuses as of 11/09/2023) Resolved Problems Problem Noted Date Diagnosed Date [...] as of this encounter (statuses as of 11/09/2023) Immunizations Name Administration Dates Next Due COVID-19 mRNA, LNP-s, No Pre serve, 2-Dose Series (BaseTrace) 01/01/2022,07/12/2021,08/25/2020,07/14 COVID-19, MRNA-LNP, 23-24, P F, 30 [...] Miscellaneous Notes * Telephone Encounter - Ct Morales DO - 11/09/2023 8:13 AM EDT Noted. Agree with wait list and pt calling for open spots. 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 * Telephone Encounter - Fang Thorne OSA - 11/06/2023 4:40 PM EDT Referral for derm placed as urgent. First avail, in [facility], is December. Pt was scheduled in that spot, however; wanted to confirm the date was ok. Pt also on the wait list and was advised to call us every few days to check for any sooner cancellations. Pt was offered sooner, however; the only locations avail were [place] and [place]. Pt cannot do either location due to transportation issues. documented in this encounter Plan of Treatment Upcoming Encounters Date Type Department Care Team (Latest Contact Info) Description 11:15 AM EDT Hospital Encounter ENDO [facility], Endoscopy Room [facility] [address] [facility] [phone] Dawit Mckay MD [address] [place] [address] 4 11:15 AM EDT - 4 12:15 PM EDT Surgery ENDO [facility], [facility] [place] [phone] Dawit Mckay MD [address] [place] [address] ESOPHAGOGASTRODUODENOSCOPY (EGD), FLEXIBLE, TRANSORAL, ENDOSCOPIC ULTRASOUND 4 1:30 PM EDT Telemedicine [address] 293 [facility], [place] [phone] College, Pharmacist [address] [place] [address], [place] [address] 4 10:40 AM EDT Office Visit Dermatology[address] [place] [address] Mellissa Blanco PA-C [address] [place] [address] [place] [address] 4 2:20 PM EDT Office Visit Family [address] 293 [facility], [place] [phone] Ct Morales DO 293 [facility], [place] [address] 4 2:00 PM EDT Office Visit Hepatology, [facility] 132 [facility] [place] [address] Ashley Cheema MD [address] [place], [place] [address] [address] Scheduled Procedures Name Priority Associated Diagnoses Date/Ti me ESOPHAGOGASTRODUODENOSCOPY ( EGD), FLEXIBLE, TRANSORAL, ENDOSCOPIC ULTRASOUND Nodule of esophagus 11/18/2023 11:15 AM EDT COLONOSCOPY FLEXIBLE PROXIMA L DIAGNOSTIC Recall Encounter for screening colonoscopy Health Maintenance Due Date Last Done Comments DISCUSS TOBACCO CESSATION (REFER TO SMARTSET #7591) 1955 Cologuard 1998 Fecal Occult Blood Test [...] on File Type Date Recorded Patient Manager Leadership Development Expl anation Power of Clinical Courier 01/11/2023 Porter Gregory POWER OF DRY SAND MOLDER Latest Code Status on File Code Status Date Activated Date Inactivated Comments Full Code 01/14/2023 2:09 PM 01/25/2023 6:20 PM This o rder reflects the patients wishes and were consensually agreed upon. Question Answer Comments Discussion of Advance Directives occurred with: Patient Does the patient have a Living Will? No Does the patient have Health Care Power of Clinical Courier? No Code Status History Code Status Date [...] File Name Relationship Healthcare [facility] Porter Gregory Adult Child Health Care Agen t (per Health Care Power of Clinical Courier document) Care Teams Slasher Operator Relationship Specialty Start Date End Date Ct Morales DO [address] [place] [address], [place] [address] PCP - General Family Medicine 01/17/22 documented as of this encounter
--- OUTSIDE RECORDS SUMMARY | 2024-04-20 08:56 | External Medical Summary | Summary of Care ---
Author Name Unknown Organization [facility] Address [address] [place] [address] Phone [phone] Care Team Providers Care Director Security Management Name Role Phone Ct Christy DO Primary Care Provider Reason for Referral * Evaluate & Treat - Unlimited Visits (Within 10 days (routine)) - Authorized Specialty Diagnoses / Procedures Referred By Mark kaufman Referred To Contact Pharmacist / Pharmacy Diagnoses Tobacco abuse Ct Christy DO [address] [place] [address] Referral ID Status Reason Start Date Expiration Date Visits Requested Visits Authorized [id number] Authorized Specialty Services Required 10/29/2023 99 99 Question Answer Referral Priority Within 10 days (routine) Where should this appointment be scheduled? [facility] Referring Provider Role: Primary Care Reason for Referral: Smoking Cessation Comments Pharmacist Medication Therapy Management: Minimum frequency patient should be seen in person for medication management: as appropriate per clinical condition and patient status By my signature, I understand that my patient Malika Gregory will have her medication therapy managed by the [facility] Medication Therapy [facility] ([facility]) per established policies, procedures, and protocols. I also certify that this referral may serve as an initiation of service for the management of drug therapy in the above noted patient. [facility] providers will be responsible for scheduling patient visits, obtaining appropriate laboratory studies, and adjusting medication management therapy per patient's need, in addition to those roles spelled out in the clinic policy, procedures, and drug management protocols. I understand that the service provided by the [facility] Clinic is voluntary and have informed patient that they can refuse the service at their discretion. I am aware that the [facility] Clinic will provide me with a copy of the patient encounter via my [employer] InBasket. I authorize the [facility] to carry out these activities on my behalf. I consider this program to be a necessary part of the patient's medical care. Ct Christy DO Reason for Visit * Reason Onset Date Comments Medication Refill 10/25/2023 Encounter Details Date Type Department Care Team (Late st Contact Info) Description 10/25/2023 Refill Family Practice [address], [place] [address] [place] [phone] Ct Christy DO [address] [place] [address] Tobacco abuse* Allergies No known active allergiesdocumented as of this encounter (statuses as of 10/29/2023) Medications Medication Sig Dispensed Refills Start Date End Date Status DAILY VALUE MULTIVITAMIN PO TABS Take by mouth at bedtime. 1 Tab 0 11/25/2012 Active CALCIUM 500 MG PO TABS Take 600 mg by mouth at bedtime. 1 Tab 0 11/25/2012 Active THIAMINE (VITAMIN B-1) 100 MG Tablet Take 1 Tablet by mouth. Every other day 30 Tab 0 04/16/2018 Active folic acid 1 MG Tablet Take 1 Tablet by mouth in the morning. 30 Tab 11 04/16/2018 Active Vitamin D, Cholecalciferol, 1000 units CAPS Take 1 Capsule by mouth in the morning. \. 0 04/16/2018 Active magnesium chloride ER (MAG-64) 64 MG TBECIndications:H ospital discharge follow-up,Sepsis, due to unspecified organism,Alcohol use,Hypomagnesemi a Take 125 mg by mouth daily. DC from [facility] 0 04/16/2018 Active metroNIDAZOLE 1 % External [...] the morning. 100 Tablet 3 02/02/2023 Active DULoxetine HCl 30 MG Oral Capsule Delayed Release Particles (Cymbalta)Indicat ions:Major depressive disorder, recurrent episode, moderate (HCC),Paresthesia s Take 1 Capsule by mouth in the morning. Do not cut, crush or chew. 100 Capsule 1 04/10/2023 Active Famotidine 20 MG Oral Tablet (Pepcid) [...] twice daily 1 Each 0 10/26/2023 Active Varenicline Tartrate 1 MG Oral TabletIndications :Tobacco abuse Take 1 Tablet by mouth in the morning and 1 Tablet before bedtime. As directed on box.. 60 Tablet 3 11/12/2022 4 Discontinue d(Refill) documented as of this encounter (statuses as of 10/29/2023) Active Problems Problem Noted Date Diagnosed Date [...] as of this encounter (statuses as of 10/29/2023) Resolved Problems Problem Noted Date Diagnosed Date [...] as of this encounter (statuses as of 10/29/2023) Immunizations Name Administration Dates Next Due COVID-19 mRNA, LNP-s, No Pre serve, 2-Dose Series (LikeAndy) 01/01/2022,07/12/2021,08/25/2020,07/14 COVID-19, MRNA-LNP, 23-24, P F, 30 [...] as of this encounter Miscellaneous Notes * Addendum Note - Ct Christy DO - 10/29/2023 1:08 PM EDTAddended by: CT CHRISTY on: 10/29/2023 01:08 PM Modules accepted: Orders * Telephone Encounter - Ct Christy DO - 10/29/2023 1:08 PM EDT Signed referral. * Telephone Encounter - Alexandra Young RP - 10/29/2023 11:25 AM EDT Signed Prescriptions: Disp Refills Varenicline Tartrate 1 MG Oral Tablet 60 Tab*3 Sig: Take 1 Tablet by mouth in the morning and 1 Tablet before bedtime. As directed on box..Authorizing Provider: CT CHRISTY Varenicline Tartrate (Starter) 0.5 MG X 11*1 Each 0 Sig: Take by mouth 0.5 mg once daily for 3 days then increase to 0.5 mg twice daily for 4 days then increaseto 1 mg twice dailyAuthorizing Provider: CT CHRISTY Electronically signed by Alexandra Young [facility] at 10/29/2023 11:25 AM EDT * Addendum Note - Alexandra Young [facility] - 10/29/2023 11:25 AM EDTAddended by: ALEXANDRA YOUNG on: 10/29/2023 11:25 AM Modules accepted: Orders Electronically signed by Alexandra Young [facility] at 10/29/2023 11:25 AM EDT * Telephone Encounter - Alexandra Young [facility] - 10/29/2023 11:13 AM EDT Spoke with pt regarding smoking cessation MTM referral. Pt would like to follow with MTM. Pended referral below for approval. Will schedule initial telephonic appt with MTM for 3 weeks as patient started Chantix today and expressed no concerns at this time. Alexandra Young, PharmD PGY1 Agricultural Research Director 10/29/2023 11:14 AM Electronically signed by Alexandra Young [facility] at 10/29/2023 11:25 AM EDT * Telephone Encounter - Gina Lanza [facility] - 10/28/2023 8:23 AM EDTSigned Prescriptions: Disp Refills Varenicline Tartrate 1 MG Oral Tablet 60 Tab*3 Sig: Take 1 Tablet by mouth in the morning and 1 Tablet before bedtime. As directed on box..Authorizing Provider: CT CHRISTY Varenicline Tartrate (Starter) 0.5 MG X 11*1 Each 0 Sig: Take by mouth 0.5 mg once daily for 3 days then increase to 0.5 mg twice daily for 4 days then increaseto 1 mg twice dailyAuthorizing Provider: CT CHRISTY * Telephone Encounter - Gina Lanza [facility] - 10/27/2023 4:48 PM EDTSigned Prescriptions: Disp Refills Varenicline Tartrate 1 MG Oral Tablet 60 Tab*3 Sig: Take 1 Tablet by mouth in the morning and 1 Tablet before bedtime. As directed on box..Authorizing Provider: CT CHRISTY Varenicline Tartrate (Starter) 0.5 MG X 11*1 Each 0 Sig: Take by mouth 0.5 mg once daily for 3 days then increase to 0.5 mg twice daily for 4 days then increaseto 1 mg twice dailyAuthorizing Provider: CT CHRISTY * Telephone Encounter - Alexandra Young RPh - 10/26/2023 3:19 PM EDT Attempted to contact pt regarding smoking cessation and Chantix. Left message for patient to returnphone call. Also left MyG for patient regarding Chantix and MTM referral interest. Alexandra Young, PharmD PGY1 Agricultural Research Director 10/26/2023 3:35 PM * Telephone Encounter - Alexandra Young RPh - 10/26/2023 2:07 PM EDT Pending Prescriptions: Disp Refills Varenicline Tartrate 1 MG Oral Tablet 60 Tab*3 Sig: Take 1 Tablet by mouth in the morning and 1 Tablet before bedtime. As directed on box.. Varenicline Tartrate (Starter) 0.5 MG X 11*1 Each 0 Sig: Take by mouth 0.5 mg once daily for 3 days then increase to 0.5 mg twice daily for 4 days then increase to 1 mg tw ice daily * Telephone Encounter - Alexandra Young RPh - 10/26/2023 1:53 PM EDT Patient requesting Chantix to aid in smoking cessation. Notes she is ready to quit again. Rx pendedbelow for approval for starter pack to help lessen SE as well as maintenance dose. If agreeable, can coordinate with patient and offer MTM services to pt to follow up with smoking cessation. Calculated CrCl per [facility] is 55 mL/min. Thanks, Alexandra Young, PharmD PGY1 Agricultural Research Director 10/26/2023 1:55 PM documented in this encounter Plan of Treatment Upcoming Encounters Date Type Department Care Team (Latest Contact Info) Description 4 3:40 PM EDT Office Visit Family Practice [address] [facility], [place] 293 [facility] [place] [address] Ct Christy DO [address] [place] [address] 4 11:15 AM EDT Hospital Encounter ENDO [facility], Endoscopy Room [facility] [address] [place] [phone] Dawit Mckay MD [address] [place] [address] 4 11:15 AM EDT - 4 12:15 PM EDT Surgery ENDO [facility], Endoscopy Room [facility] [address] [place] [phone] Dawit Mckay MD [address] [place] [address] ESOPHAGOGASTRODUODENOSCOPY (EGD), FLEXIBLE, TRANSORAL, ENDOSCOPIC ULTRASOUND 4 1:30 PM EDT Telemedicine Family Practice [address] [place] [address] 293 [facility] [place] [address] College, Pharmacist [address] [place] [address], [place] [address] 4 2:00 PM EDT Office Visit Hepatology, [facility] [address] [place] [address] Ashley Cheema MD [address] [facility] [place] [address] Scheduled Procedures Name Priority Associated Diagnoses Date/Ti me ESOPHAGOGASTRODUODENOSCOPY ( EGD), FLEXIBLE, TRANSORAL, ENDOSCOPIC ULTRASOUND Nodule of esophagus 11/18/2023 11:15 AM EDT COLONOSCOPY FLEXIBLE PROXIMA L DIAGNOSTIC Recall Encounter for screening colonoscopy Scheduled Referrals Name Type Priority Associated Diagnoses Orde r Schedule PHARMACIST MEDS THERAPY MGMT REFERRAL OP Referral Within 10 days (routine) Tobacco abuse Ordered: 10/29/2023 Health Maintenance Due Date Last Done Comments DISCUSS TOBACCO CESSATION (REFER TO SMARTSET #0751) 1955 Cologuard 1998 Fecal Occult Blood Test [...] of this encounter Visit Diagnoses Diagnosis Tobacco abuse- Primary Tobacco use disorder Nodule of esophagus Unspecified disorder of esophagus documented in this encounter Advance Directives Documents on File Type Date Recorded Patient Chief Radiation Therapist Expl anation Power of Central Services Tech 01/11/2023 Porter Gregory POWER OF CONFIGURATION ANALYST Latest Code Status on File Code Status Date Activated Date Inactivated Comments Full Code 01/14/2023 2:09 PM 01/25/2023 6:20 PM This o rder reflects the patients wishes and were consensually agreed upon. Question Answer Comments Discussion of Advance Directives occurred with: Patient Does the patient have a Living Will? No Does the patient have Health Care Power of Central Services Tech? No Code Status History Code Status Date [...] Agents on File Name Relationship Healthcare Agent [facility] Communication Porter Gregory Adult Child Health Care Agen t (per Health Care Power of Central Services Tech document) Care Teams Director Security Management Relationship Specialty Start Date End Date Ct Christy DO 293 [place] [address] PCP - General Family Medicine 01/17/22 documented as of this encounter
--- OUTSIDE RECORDS SUMMARY | 2024-04-20 08:56 | External Medical Summary | Summary of Care ---
Author Name Unknown Organization [facility] Address [address] [place] [address] Phone [phone] Care Team Providers Care Public Health Assistant Name Role Phone Ct Christy DO Primary Care Provider [phone] Reason for Visit * Reason Onset Date Comments Medication Refill 10/25/2023 Encounter Details Date Type Department Care Team (Late st Contact Info) Description 10/25/2023 Refill Family Practice [address], [place] [address] [place] [address] Ct Christy DO [address] [place] [address] Tobacco abuse* Allergies No known active allergiesdocumented [...] 125 mg by mouth daily. DC from [facility] 0 04/16/2018 Active metroNIDAZOLE 1 [...] directed on box.. 60 Tablet 3 11/12/2022 Discontinue d(Refill) documented as of this encounter [...] mRNA, LNP-s, No Pre serve, 2-Dose Series (VANCL) 01/01/2022,07/12/2021,08/25/2020,07/14 COVID-19, MRNA-LNP, 23-24, P F, 30 MCG/0.3 mL, 12 YRS AND ABOVE, IM [facility] 07/17/2023 Covid-19, Mrna, Lnp-s, Pf, B ivalent, [...] encounter Miscellaneous Notes * Telephone Encounter - Alexandra Young, [facility] - 10/29/2023 11:25 AM EDT Signed Prescriptions: [...] mg twice dailyAuthorizing Provider: CT CHRISTY * Addendum Note - Alexandra Young RP - 10/29/2023 11:25 AM EDTAddended by: ALEXANDRA YOUNG on: 10/29/2023 11:25 AM Modules accepted: Orders * Telephone Encounter - Alexandra Young [facility] - 10/29/2023 11:13 AM EDT Spoke with pt regarding smoking cessation MTM referral. Pt would like to follow with MTM. Pended referral below for approval. Will schedule initial telephonic appt with MTM for 3 weeks as patient started Chantix today and expressed no concerns at this time. Alexandra Young, PharmD PGY1 Lithograph Designer 10/29/2023 11:14 AM * Telephone Encounter - Gina Lanza [facility] - 10/28/2023 8:23 AM EDTSigned Prescriptions: Disp [...] CHRISTY * Telephone Encounter - Gina Lanza [facility] - 10/27/2023 4:48 PM EDTSigned Prescriptions: Disp [...] MTM referral interest. Alexandra Young, PharmD PGY1 Lithograph Designer 10/26/2023 3:35 PM * Telephone Encounter - [...] up with smoking cessation. Calculated CrCl per [facility] is 55 mL/min. ThanksAlexandra, PharmD PGY1 Lithograph Designer 10/26/2023 1:55 PM documented in this encounter Plan of Treatment Upcoming Encounters Date Type Department Care Team (Latest Contact Info) Description 11/06/2023 3:40 PM EDT Office Visit Family Practice [address], [place] [address] [place] [address] Ct Christy DO [address] [place] [address] 11/18/2023 11:15 AM EDT Hospital Encounter ENDO [facility], Endoscopy Room [facility] [address] [place] [phone] Dawit Mckay MD [address] [place] [address] 11/18/2023 11:15 AM EDT - 11/18/2023 12:15 PM EDT Surgery ENDO [facility], Endoscopy Room [facility] [address] [place] [phone] Dawit Mckay MD [address] [place] [address] ESOPHAGOGASTRODUODENOSCOPY (EGD), FLEXIBLE, TRANSORAL, ENDOSCOPIC ULTRASOUND 04/05/2024 2:00 PM EDT Office Visit Hepatology, [facility] [address] [place] [address] Ashley Cheema MD [address] [place] [address] Scheduled Procedures Name Priority Associated Diagnoses Date/Ti me ESOPHAGOGASTRODUODENOSCOPY ( EGD), FLEXIBLE, TRANSORAL, ENDOSCOPIC ULTRASOUND Nodule of esophagus 11/18/2023 11:15 AM EDT COLONOSCOPY FLEXIBLE PROXIMA L DIAGNOSTIC Recall Encounter for screening colonoscopy Health Maintenance Due Date Last Done Comments DISCUSS TOBACCO CESSATION (REFER TO SMARTSET #6225) 1955 Cologuard 1998 Fecal Occult Blood Test [...] Documents on File Type Date Recorded Patient Home Theater Specialist Expl anation Power of Fruit Stuffer 01/11/2023 Porter Gregory POWER OF FRAME FEEDER Latest Code Status on File Code Status Date Activated Date Inactivated Comments Full Code 01/14/2023 2:09 PM 01/25/2023 6:20 PM This o rder reflects the patients wishes and were consensually agreed upon. Question Answer Comments Discussion of Advance Directives occurred with: Patient Does the patient have a Living Will? No Does the patient have Health Care Power of Fruit Stuffer? No Code Status History Code Status Date [...] Deangelo t (per Health Care Power of Fruit Stuffer document) Care Teams Public Health Assistant Relationship Specialty Start Date End Date Ct Christy DO [address] [place] [address] PCP - General Family Medicine 01/17/22 documented as of this encounter
--- OUTSIDE RECORDS SUMMARY | 2024-04-20 08:56 | External Medical Summary | Summary of Care ---
Author Name Unknown Organization [facility] Address [address] [place] [address] Phone [phone] Care Team Providers Care Nursing Consultant Name Role Phone Ct Morales DO Primary Care Provider Reason for Referral * Evaluate & Treat - Unlimited Visits (Within 3 days (urgent)) - Authorized Specialty Diagnoses / Procedures Referred By Mark kaufman Referred To Contact Dermatology Diagnoses Non-healing skin lesion Ct Morales DO [address] [place] [address] Referral ID Status Reason Start Date Expiration Date Visits Requested Visits Authorized [id number] Authorized Specialty Services Required 11/06/2023 999 999 Question Answer Referral Priority Within 3 days (urgent) Where should this appointment be scheduled? [facility] Are you referring the patient for Mohs Surgery and have a current positive skin cancer biopsy result? No What is the reason for the patient referral? Rash/Skin Check/Eval of Lesion or Mole Reason for Visit * Reason Onset Date Comments Follow Up Immunization RSV Vaccine 11/06/2023 Encounter Details Date Type Department Care Team (Late st Contact Info) Description 11/06/2023 3:40 PM EDT Office Visit Family Practice 65 [facility], [place] [address] [place] [phone] [address] Morales DO [address] [place] [address] Non-healing skin lesion*; Incisional hernia, without obstruction or gangrene; Skin lesion; Nodule of esophagus; Need for RSV vaccination Allergies No known active allergiesdocumented as of this encounter (statuses as of 11/06/2023) Medications Medication Sig Dispensed Refills Start Date [...] mg by mouth daily. DC from [facility] 0 04/16/2018 Active metroNIDAZOLE 1 % [...] twice daily 1 Each 0 10/26/2023 Active Abrysvo 120 MCG/0.5ML Intramuscular Solution Reconstituted (RSV Pre-Fusion F A&B Vac Rcmb)Indications:N eed for RSV vaccination Inject 0.5 mL into a large muscle once for 1 dose. 1 Each 0 11/06/2023 4 Active Thiamine HCl 100 MG Oral Tablet (vitamin B-1) Take 1 Tablet by mouth in the morning. 90 Tablet 1 11/06/2023 Active THIAMINE (VITAMIN B-1) 100 MG Tablet Take 1 Tablet by mouth. Every other day 30 Tab 0 04/16/2018 4 Discontinu ed(Refill) documented as of this encounter (statuses as of 11/06/2023) Active Problems Problem Noted Date Diagnosed Date [...] as of this encounter (statuses as of 11/06/2023) Resolved Problems Problem Noted Date Diagnosed Date [...] as of this encounter (statuses as of 11/06/2023) Immunizations Name Administration Dates Next Due COVID-19 mRNA, LNP-s, No Pre serve, 2-Dose Series ([employer]) 01/01/2022,07/12/2021,08/25/2020,07/14 COVID-19, MRNA-LNP, 23-24, P F, 30 MCG/0.3 mL, 12 YRS AND ABOVE, IM ([employer]Comirnat[employer]) 07/17/2023 Covid-19, Mrna, Lnp-s, Pf, B ivalent, [...] Tobacco: Never Tobacco Cessation:Ready to Q uit: Yes; Counseling Given: Yes Alcohol Use Standard Drinks/Week [...] Sign Reading Time Taken Comments Blood Pressure 130/76 11/06/2023 3:44 PM EDT Pulse 94 11/06/2023 3:44 PM EDT Temperature 36.5 C (97.7 F) 11/06/2023 3:44 PM ED T Respiratory Rate 12 11/06/2023 3:44 PM EDT Oxygen Saturation 94% 11/06/2023 3:44 PM EDT Inhaled Oxygen Concentration - - Weight 75.5 kg (166 lb 6.4 oz) 11/06/2023 3:44 P M EDT Height 162.6 cm (5' 4") 11/06/2023 3:44 PM EDT Body Mass Index 28.56 11/06/2023 3:44 PM EDT documented in this encounter Functional [...] this encounter Patient Instructions * Patient Instructions* Danii Castro LPN - 11/06/2023 3:40 PM EDT Possible side effects of RSV vaccine, (Respiratory Syncytial Virus), are usually mild and can include: Soreness, swelling or redness at injection site Low grade fever Body aches or joint pain Headache Nausea or diarrhea You may use a fever/pain reducing medication for these symptoms. LET YOUR DOCTOR KNOW IMMEDIATELY IF YOU HAVE DIFFICULTY BREATHING OR SWALLOWING, EXPERIENCE ITCHINGOF FEET OR HANDS, HAVE SWELLING OF EYES, FACE OR INSIDE OF NOSE. Possible side effects of RSV vaccine, (Respiratory Syncytial Virus), are usually mild and can include: Soreness, swelling or redness at injection site Low grade fever Body aches or joint pain Headache Nausea or diarrhea You may use a fever/pain reducing medication for these symptoms. LET YOUR DOCTOR KNOW IMMEDIATELY IF YOU HAVE DIFFICULTY BREATHING OR SWALLOWING, EXPERIENCE ITCHINGOF FEET OR HANDS, HAVE SWELLING OF EYES, FACE OR INSIDE OF NOSE. documented in this encounter Progress Notes * Eva Nguyen RN - 11/06/2023 4:16 PM EDT Pre-Administration Time Out Procedure Performed: Yes Patient Identified (Ask Name/Date of ): Yes Does the patient have a fever greater than 101 degrees today? No Patient allergic to latex? No Has the patient ever fainted after receiving an injection? No VFC Stock: No Immunization(s) verified: Yes, Immunization Name: RSV, VIS Sheet(s) given: Yes Verified Side and Site: Yes Verified Shot(s) with Parent(s)/Patient: Yes * Ct Morales DO - 11/06/2023 3:52 PM EDT SUBJECTIVE: Chief Complaint Patient presents with Follow Up Immunization RSV Vaccine HPI: Malika Gregory is a 68 year old female who presents today for regular return. Pt notes thather neuropathy is tolerable presently. She remains on gabapentin and feels it is working well. She remains on Cymbalta. She is not sure if this has helped her mood. Pt notes that she has a small lump near her belly button. It is near the incision. No pain. It doesnot change if she is pressing on it. She noticed it about a month ago. Pt is on Chantix. She notes she is at about 10 cigarettes a day. She plans to quit on 11/17. She is tolerating the Chantix well. Pt has a small red lump on her right cheek. It will bleed if she picks at it. It has been about a month. She has a lesion on her nose. If she washes her face too hard, it will bleed. It is not flat any longer. PHM: Patient Active Problem List Diagnosis Code Dyslipidemia, goal LDL below 100 E78.5 HTN, goal below 140/90 I10 Major depressive disorder, recurrent episode, moderate (HCC) F33.1 Generalized anxiety disorder F41.1 Tobacco use Z72.0 Overweight (BMI 25.0-29.9) E66.3 Alcohol use Z78.9 MEDICATION USE AGREEMENT [id number] Multiple lung nodules on CT R91.8 Hypokalemia E87.6 Hypomagnesemia E83.42 Restrictive lung disease J98.4 Alcoholic cirrhosis of liver without ascites (HCC) K70.30 Biliary disease K83.9 Diverticulitis of sigmoid colon K57.32 Prediabetes R73.03 COPD, group C, by GOLD 2017 classification (HCC) J44.9 Gastro-esophageal reflux disease without esophagitis K21.9 Alcohol dependence, uncomplicated ([facility]) F10.20 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 1 Tab 0 CALCIUM 500 MG PO TABS Take 600 mg by mouth at bedtime. 1 Tab 0 THIAMINE (VITAMIN B-1) 100 MG Tablet Take 1 Tablet by mouth. Every other day 30 Tab 0 folic acid 1 MG Tablet Take 1 Tablet by mouth in the morning. 30 Tab 11 Vitamin D, Cholecalciferol, 1000 units CAPS Take 1 Capsule by mouth in the morning. \\. magnesium chloride ER (MAG-64) 64 MG TBEC Take 125 mg by mouth daily. DC from [facility] metroNIDAZOLE 1 % External Gel (Metrogel) Apply topically to affected area 2 times a day. To affected area. 30 g 5 Albuterol Sulfate HFA 108 (90 Base) MCG/ACT Inhalation Aerosol Solution INHALE 2 PUFFS EVERY 4 HOURS NEEDED FOR WHEEZING. 18 g 2 Cfqefijfbzu-Tghmhlsku-Lobddo 100-62.5-25 MCG/ACT Aerosol Powder Breath Activated (Trelegy Ellipta) INHALE ONE PUFF BY MOUTH EVERY MORNING 180 Each 3 Atorvastatin Calcium 20 MG Oral Tablet (Lipitor) Take 1 Tablet by mouth in the morning. 100 Tablet 3 DULoxetine HCl 30 MG Oral Capsule Delayed Release Particles (Cymbalta) Take 1 Capsule by mouth in the morning. Do not cut, crush or chew. 100 Capsule 1 Famotidine 20 MG Oral Tablet (Pepcid) TAKE [...] As directed on box.. 60 Tablet 3 Abrysvo 120 MCG/0.5ML Intramuscular Solution Reconstituted (RSV Pre-Fusion F A&B Vac Rcmb) Inject 0.5 mL into a large muscle once for 1 dose. 1 Each 0 Varenicline Tartrate (Starter) 0.5 MG X 11 & 1 MG X 42 Tablet Therapy Pack Take by mouth 0.5 mgonce daily for 3 days then increase to 0.5 mg twice daily for 4 days then increase to 1 mg twice daily 1 Each 0 No current facility-administered medications for this [...] AGREEMENT 08/28/2015 Other anxiety states started in [facility] Dr Lowe Restrictive lung disease 11/11/2015 PFT Past Surgical History: Procedure Laterality Date BREAST BIOPSY Right unknown date; benign DELIVERY x 3 COLONOSCOPY, DIAGNOSTIC (RECTUM) 12/21/2015 diverticulosis, lipoma, repeat 10 yrs/COLONOSCOPY FLEXIBLE PROXIMAL DIAGNOSTIC performed by Jelly Jean Baptiste MD at ENDOSCOPY [facility] COLONOSCOPY, DIAGNOSTIC (RECTUM) 11/15/2015 COLONOSCOPY FLEXIBLE PROXIMAL DIAGNOSTIC performed by Jaime Jean Baptiste MD at ENDOSCOPY [facility] COLORECTAL CANCER SCREEN; COLON 2001 colonoscopy- 8 yrs CONIZATION OF CERVIX 01/1995 path neg, Dr Romero DENTAL SURGERY PROCEDURE NEC age 18 wisdom teeth x 4 EGD, FLEXIBLE, DIAGNOSTIC 12/21/2015 normal bx, HH/ESOPHAGOGASTRODUODENOSCOPY (EGD), FLEXIBLE, TRANSORAL, DIAGNOSTIC performed by Jaime Jean Baptiste MD at ENDOSCOPY [facility] EGD, FLEXIBLE, DIAGNOSTIC 05/27/2018 hiatal hernia/ESOPHAGOGASTRODUODENOSCOPY (EGD), FLEXIBLE, TRANSORAL, DIAGNOSTIC performed by Jaime Jean Baptiste MD at ENDOSCOPY [facility] EGD, FLEXIBLE, DIAGNOSTIC N/A 01/20/2023 LA grade C reflux esophagitis/hiatal hernia/focal edema GEJ/ESOPHAGOGASTRODUODENOSCOPY (EGD), FLEXIBLE, TRANSORAL, DIAGNOSTIC performed by Barb Dunn MD at ENDOSCOPY [facility] EGD, FLEXIBLE, DIAGNOSTIC N/A 01/23/2023 submucosal nodule with small ulcer/biopsies show inflammation compatible with ascess/ESOPHAGOGASTRODUODENOSCOPY (EGD), FLEXIBLE, TRANSORAL, DIAGNOSTIC performed by Barb Dunn MD at OR [facility] EGD, FLEXIBLE, DIAGNOSTIC 06/22/2023 ESOPHAGOGASTRODUODENOSCOPY (EGD), FLEXIBLE, TRANSORAL, DIAGNOSTIC performed by Denise Dunn MD at ENDOSCOPY [facility] EGD, W/ENDOSCOPIC US 05/27/2018 normal/ESOPHAGOGASTRODUODENOSCOPY (EGD), FLEXIBLE, TRANSORAL, ENDOSCOPIC ULTRASOUND performed by Jaime Jean Baptiste MD at ENDOSCOPY [facility] EYE MUSCLE SURGERY FOLLOWUP age 3 and age 8 R eye INJECT DX/THER SUBSTANCE INTERLAMINAR LUMBAR/SACRAL W IMAGE GUIDE 12/31/2017 INJECTION SPINE LUMBAR OR SACRAL performed by [place] Carlyle Huston DO at OR [facility] INJECT DX/THER SUBSTANCE INTERLAMINAR LUMBAR/SACRAL W IMAGE GUIDE 01/28/2018 INJECTION SPINE LUMBAR OR SACRAL performed by Riaz Huston DO at OR [facility] IR ASPIRATION ABSCESS/COLLECTION 01/27/2020 IR ASPIRATION ABSCESS/COLLECTION 01/23/2023 IR BIOPSY 10/27/2022 PARTIAL COLECTOMY W/ANASTOMOSIS N/A 01/14/2023 PARTIAL COLECTOMY WITH ANASTOMOSIS performed by Jeffrey Mesa MD at OR [facility] REMOVAL OF APPENDIX N/A 01/14/2023 APPENDECTOMY performed by Jeffrey Mesa MD at OR [facility] REMOVAL OF SMALL INTESTINE W/FUSION N/A 01/14/2023 ENTERECTOMY SMALL BOWEL RESECTION performed by Jeffrey Mesa MD at OR [facility] REMOVAL OF VULVA, 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 As per HPI Musculoskeletal: Negative for arthralgias, gait problem and joint swelling. Skin: Negative for color change, pallor and rash. As per HPI OBJECTIVE: BP 130/76 (BP Site: Left Arm, BP Position: Sitting, BP Cuff Size: Regular) | Pulse 94 | Temp 36.5 C (97.7 F) (Tympanic) | Resp 12 | Ht 1.626 m (5' 4") | Wt 75.5 kg (166 lb 6.4 oz) | LMP 09/08/2007 | SpO2 94% | BMI 28.56 kg/m | BSA 1.85 m PHYSICAL EXAM: [...] no abdominal tenderness. There is no guarding. Hernia: A hernia (small incisional hernia at midline) is present. Musculoskeletal: General: No tenderness or deformity. Normal range of motion. Skin: General: Skin is warm and dry. Coloration: Skin is not pale. Findings: Lesion (non healing lesion of nose) present. No erythema or rash. Comments: ?cystic lesion of cheek Neurological: Mental Status: She is alert and oriented to person, place, and time. ASSESSMENT/PLAN: (L98.9) Non-healing skin lesion (primary encounter diagnosis) Plan: DERMATOLOGY REFERRAL OP Pt will see dermatology for further evaluation. Concern for skin cancer given that lesion will not heal. (K43.2) Incisional hernia, without obstruction or gangrene Plan: Pt will monitor. It is not causing her any issues presently. (L98.9) Skin lesion Plan: ?cystic lesion of cheek. She will f/u with dermatology. (K22.9) Nodule of esophagus Plan: Pt strongly encouraged to keep EGD appt. (Z29.11) Need for RSV vaccination Plan: RSV VAC, BIVALENT, PERF, PF, 0.5 ML, 60YRS AND ABOVE, Abrysvo 120 MCG/0.5ML Intramuscular Solution Reconstituted (RSV Pre-Fusion F A&B Vac Rcmb) Vaccine given. See admin record. Follow-up: 3 months Total time today including reviewing chart before the visit, pertinent labs, imaging reports, face to face time, and documentation time was [address] Morales DO documented in this encounter Nursing Notes * Danii Castro LPN - 11/06/2023 3:37 PM EDT Patient here for follow up visit. Having a hard time finding OTC Thiamine. Durable HC POA scanned into chart. documented in this encounter Plan of Treatment Upcoming Encounters Date Type Department Care Team (Latest Contact Info) Description 4 11:15 AM EDT Hospital Encounter ENDO [facility], Endoscopy Room [facility] [address] [place] [phone] Dawit Mckay MD [address] [place] [address] 4 11:15 AM EDT - 4 12:15 PM EDT Surgery ENDO [facility], Endoscopy Room [facility] [address] [place] [phone] Dawit Mckay MD [address] [place] [address] ESOPHAGOGASTRODUODENOSCOPY (EGD), FLEXIBLE, TRANSORAL, ENDOSCOPIC ULTRASOUND 4 1:30 PM EDT Telemedicine Family Practice 65 [facility] 293 [facility] [place], [place] [phone] College, Pharmacist 65 [facility] [address] [facility] [place], [place] [address] 4 10:40 AM EDT Office Visit Dermatology[address] [address] Mellissa Blanco, IRON [address] [place] [address] [place] [address] 4 2:20 PM EDT Office Visit Family Practice 65 [facility] 293 [facility] [place], [place] [phone] Ct Morales DO 293 [facility], [place] [address] 4 2:00 PM EDT Office Visit Hepatology, [facility] 132 [facility] [place] [address] Ashley Cheema MD [address] [place] [address] Scheduled Procedures Name Priority Associated Diagnoses Date/Ti me ESOPHAGOGASTRODUODENOSCOPY ( EGD), FLEXIBLE, TRANSORAL, ENDOSCOPIC ULTRASOUND Nodule of esophagus 11/18/2023 11:15 AM EDT COLONOSCOPY FLEXIBLE PROXIMA L DIAGNOSTIC Recall Encounter for screening colonoscopy Scheduled Referrals Name Type Priority Associated Diagnoses Orde r Schedule DERMATOLOGY REFERRAL OP Referral Within 3 days (urgent) Non-healing skin lesion Ordered: 11/06/2023 Health Maintenance Due Date Last Done Comments DISCUSS TOBACCO CESSATION (REFER TO SMARTSET #[id number]) 1955 Cologuard 1998 Fecal Occult Blood Test [...] as of this encounter Visit Diagnoses Diagnosis Non-healing skin lesion- Primary Unspecified disorder of skin and subcutaneous tissue Incisional hernia, without obstruction or gangrene Incisional hernia without mention of obstruction or gangrene Skin lesion Unspecified disorder of skin and subcutaneous tissue Nodule of esophagus Unspecified disorder of esophagus Need for RSV vaccination Need for prophylactic vaccination and inoculation against respiratory syncytial virus Nodule of esophagus Unspecified disorder of esophagus documented in this encounter Advance Directives Documents on File Type Date Recorded Patient Indirect Sales Representative Expl anation Power of Rec Therapist 01/11/2023 Porter Gregory POWER OF VINYL HANGER Latest Code Status on File Code Status Date Activated Date Inactivated Comments Full Code 01/14/2023 2:09 PM 01/25/2023 6:20 PM This o rder reflects the patients wishes and were consensually agreed upon. Question Answer Comments Discussion of Advance Directives occurred with: Patient Does the patient have a Living Will? No Does the patient have Health Care Power of Rec Therapist? No Code Status History Code Status Date [...] Agen t (per Health Care Power of Rec Therapist document) Care Teams Nursing Consultant Relationship Specialty Start Date End Date Ct Morales DO [address] [place] [address] PCP - General Family Medicine 01/17/22 documented as of this encounter
--- OUTSIDE RECORDS SUMMARY | 2024-04-20 08:56 | External Medical Summary | Summary of Care ---
Author Name Unknown Organization [facility] Address [address] [place] [address] Phone [phone] Care Team Providers Care Topographical Surveyor Name Role Phone Ct Morales DO Primary Care Provider Reason for Visit * Reason Onset Date Comments Medication Refill 10/25/2023 Encounter Details Date Type Department Care Team (Late st Contact Info) Description 10/25/2023 Refill Family Practice [address] [place] [address] [place] [address] [address] Morales DO [address] [place] [address] Tobacco abuse Allergies No known active allergiesdocumented as of this encounter (statuses as of 10/26/2023) Medications Medication Sig Dispensed Refills Start Date [...] mg by mouth daily. DC from [facility] 0 04/16/2018 Active metroNIDAZOLE 1 [...] as of this encounter (statuses as of 10/26/2023) Active Problems Problem Noted Date Diagnosed Date [...] as of this encounter (statuses as of 10/26/2023) Resolved Problems Problem Noted Date Diagnosed Date [...] as of this encounter (statuses as of 10/26/2023) Immunizations Name Administration Dates Next Due COVID-19 mRNA, LNP-s, No Pre serve, 2-Dose Series (Inventalator) 01/01/2022,07/12/2021,08/25/2020,07/14 COVID-19, MRNA-LNP, 23-24, P F, 30 MCG/0.3 mL, 12 YRS AND ABOVE, IM ([facility]) 07/17/2023 Covid-19, Mrna, Lnp-s, Pf, B [...] Miscellaneous Notes * Telephone Encounter - Alexandra Leon, [facility] - 10/26/2023 2:07 PM EDT Pending Prescriptions: [...] ice daily * Telephone Encounter - Alexandra Leon RPh - 10/26/2023 1:53 PM EDT Patient requesting Chantix to aid in smoking cessation. Notes she is ready to quit again. Rx pendedbelow for approval for starter pack to help lessen SE as well as maintenance dose. If agreeable, can coordinate with patient and offer MTM services to pt to follow up with smoking cessation. Calculated CrCl per [facility] is 55 mL/min. ThanksAlexandra, PharmD PGY1 Director Of Preclinical Research 10/26/2023 1:55 PM documented in this encounter Plan of Treatment Upcoming Encounters Date Type Department Care Team (Latest Contact Info) Description 11/06/2023 3:40 PM EDT Office Visit Family Practice [address] [place] [address] [place] [address] [address] Morales DO 293 [facility] [place] [address] 11/18/2023 11:15 AM EDT Hospital Encounter ENDO [facility], Endoscopy Room [facility] [address] [place] [phone] Dawit Mckay MD [address] [place] [address] 11/18/2023 11:15 AM EDT - 11/18/2023 12:15 PM EDT Surgery ENDO [facility], Endoscopy Room [facility] [address] [place] [phone] Dawit Mckay MD [address] [place] [address] ESOPHAGOGASTRODUODENOSCOPY (EGD), FLEXIBLE, TRANSORAL, ENDOSCOPIC ULTRASOUND 04/05/2024 2:00 PM EDT Office Visit Hepatology, [facility] [address] [place] [address] Ashley Cheema MD [address] [place] [address] Scheduled Procedures Name Priority Associated Diagnoses Date/Ti me ESOPHAGOGASTRODUODENOSCOPY ( EGD), FLEXIBLE, TRANSORAL, ENDOSCOPIC ULTRASOUND Nodule of esophagus 11/18/2023 11:15 AM EDT COLONOSCOPY FLEXIBLE PROXIMA L DIAGNOSTIC Recall Encounter for screening colonoscopy Health Maintenance Due Date Last Done Comments DISCUSS TOBACCO CESSATION (REFER TO SMARTSET #[id number]) 1955 Cologuard 1998 Fecal Occult Blood Test [...] of this encounter Visit Diagnoses Diagnosis Tobacco abuse Tobacco use disorder Nodule of esophagus Unspecified disorder of esophagus documented in this encounter Advance Directives Documents on File Type Date Recorded Patient Computer Graphic Designer Expl anation Power of Disposal Worker 01/11/2023 Porter Gregory POWER OF BENZOL OPERATOR Latest Code Status on File Code Status Date Activated Date Inactivated Comments Full Code 01/14/2023 2:09 PM 01/25/2023 6:20 PM This o rder reflects the patients wishes and were consensually agreed upon. Question Answer Comments Discussion of Advance Directives occurred with: Patient Does the patient have a Living Will? No Does the patient have Health Care Power of Disposal Worker? No Code Status History Code Status Date [...] Agents on File Name Relationship Healthcare Agent [facility] p Communication Porter Gregory Adult Child Health Care Agen t (per Health Care Power of Disposal Worker document) Care Teams Topographical Surveyor Relationship Specialty Start Date End Date Ct Morales DO [address] [place] [address], [place] [address] PCP - General Family Medicine 01/17/22 documented as of this encounter
--- OUTSIDE RECORDS SUMMARY | 2024-04-20 08:56 | External Medical Summary | Summary of Care ---
Author Name Unknown Organization [facility] Address [address] [place] [address] Phone [phone] Care Team Providers Care Grain Mill Worker Name Role Phone Ct Christy DO Primary Care Provider Reason for Visit * Reason Comments Medication Refill Encounter Details Date Type Department Care Team (Late st Contact Info) Description 11/06/2023 Refill Family Practice [address], [place] [address] [place] [address] Ct Christy DO 293 [place] [address] Major depressive disorder, recurrent episode, moderate (HCC); Paresthesias Allergies No known active allergiesdocumented as of this encounter (statuses as of 11/07/2023) Medications Medication Sig Dispensed Refills Start Date [...] 125 mg by mouth daily. DC from [facility] 0 04/16/2018 Active metroNIDAZOLE 1 % External [...] or chew. 100 Capsule 1 11/07/2023 Active Abrysvo 120 MCG/0.5ML Intramuscular Solution Reconstituted (RSV Pre-Fusion F A&B Vac Rcmb)Indications:N eed for RSV vaccination Inject 0.5 mL into a large muscle once for 1 dose. 1 Each 0 11/06/2023 4 Active Thiamine HCl 100 MG Oral Tablet (vitamin B-1) Take 1 Tablet by mouth in the morning. 90 Tablet 1 11/06/2023 Active DULoxetine HCl 30 MG Oral Capsule Delayed Release Particles (Cymbalta)Indicati ons:Major depressive disorder, recurrent episode, moderate (HCC),Paresthesias Take 1 Capsule by mouth in the morning. Do not cut, crush or chew. 100 Capsule 1 04/10/2023 4 Discontinu ed(Refill) documented as of this encounter (statuses as of 11/07/2023) Active Problems Problem Noted Date Diagnosed Date [...] as of this encounter (statuses as of 11/07/2023) Resolved Problems Problem Noted Date Diagnosed Date [...] as of this encounter (statuses as of 11/07/2023) Immunizations Name Administration Dates Next Due COVID-19 mRNA, LNP-s, No Pre serve, 2-Dose Series (PatientFocus) 01/01/2022,07/12/2021,08/25/2020,07/14 COVID-19, MRNA-LNP, 23-24, P F, 30 MCG/0.3 mL, 12 YRS AND ABOVE, IM ([facility]) 07/17/2023 Covid-19, Mrna, Lnp-s, Pf, B ivalent, [...] Notes * Telephone Encounter - Fareed Peter [facility] - 11/07/2023 6:19 AM EDTSigned Prescriptions: Disp Refills DULoxetine HCl 30 MG Oral Capsule Delayed *100 Ca*1 Sig: Take 1 Capsule by mouth in the morning. Do not cut, crush or chew.Authorizing Provider: CT CHRISTY User: FAREED PETER documented in this encounter Plan of Treatment Upcoming Encounters Date Type Department Care Team (Latest Contact Info) Description 4 11:15 AM EDT Hospital Encounter ENDO OSS[facility], Endoscopy Room [facility] [address] [place] [phone] Dawit Mckay MD [address] [place] [address] 4 11:15 AM EDT - 4 12:15 PM EDT Surgery ENDO [facility], Endoscopy Room [facility] [address] [place] [phone] Dawit Mckay MD [address] [place] [address] ESOPHAGOGASTRODUODENOSCOPY (EGD), FLEXIBLE, TRANSORAL, ENDOSCOPIC ULTRASOUND 4 1:30 PM EDT Telemedicine Family Practice 65 [facility] 293 [place] [address] College, Pharmacist 65 [facility] 293 [place] [address] 4 10:40 AM EDT Office Visit Dermatology[address], [place] [address] Mellissa Blanco, IRON [address] [place] [address] [place] [address] 4 2:20 PM EDT Office Visit Family Practice [address], [place] [address] [place] [address] Ct Christy DO 293 [facility], [place] [address] 4 2:00 PM EDT Office Visit Hepatology, [facility] 132 [facility] [place] [address] Ashley Cheema MD [address] [place] [address] Scheduled Procedures Name Priority Associated Diagnoses Date/Ti me ESOPHAGOGASTRODUODENOSCOPY ( EGD), FLEXIBLE, TRANSORAL, ENDOSCOPIC ULTRASOUND Nodule of esophagus 11/18/2023 11:15 AM EDT COLONOSCOPY FLEXIBLE PROXIMA L DIAGNOSTIC Recall Encounter for screening colonoscopy Health Maintenance Due Date Last Done Comments DISCUSS TOBACCO CESSATION (REFER TO SMARTSET #4097) 1955 Cologuard 1998 Fecal Occult Blood Test [...] as of this encounter Visit Diagnoses Diagnosis Major depressive disorder, recurrent episode, moderate (HCC) Major depressive disorder, recurrent episode, moderate Paresthesias Disturbance of skin sensation Nodule of esophagus Unspecified disorder of esophagus documented in this encounter Advance Directives Documents on File Type Date Recorded Patient Rn Palliative Care Expl anation Power of Wood Cabinetmaker 01/11/2023 Porter Gregory POWER OF QUALITY ASSOCIATE Latest Code Status on File Code Status Date Activated Date Inactivated Comments Full Code 01/14/2023 2:09 PM 01/25/2023 6:20 PM This o rder reflects the patients wishes and were consensually agreed upon. Question Answer Comments Discussion of Advance Directives occurred with: Patient Does the patient have a Living Will? No Does the patient have Health Care Power of Wood Cabinetmaker? No Code Status History Code Status Date [...] Agen t (per Health Care Power of Wood Cabinetmaker document) Care Teams Grain Mill Worker Relationship Specialty Start Date End Date Ct Christy DO 293 [place] [address] PCP - General Family Medicine 01/17/22 documented as of this encounter
--- OUTSIDE RECORDS SUMMARY | 2024-04-20 08:56 | External Medical Summary | Summary of Care ---
Author Name Unknown Organization [facility] Address [address] [place] [facility] [place] [address] Phone [phone] Care Team Providers Care Studio Couch Frame Builder Name Role Phone Ct Morales DO Primary Care Provider Reason for Visit * Reason Onset Date Comments Blood Pressure Check 10/29/2023 Encounter Details Date Type Department Care Team (Late st Contact Info) Description 10/29/2023 Telephone Pharmacy, [facility] [address] [place] [address] College, Pharmacist 65 [facility] 293 [place] [address] Blood Pressure Check Allergies No known active allergiesdocumented as of [...] by mouth daily. DC from [facility] 0 04/16/2018 Active metroNIDAZOLE 1 % [...] twice daily 1 Each 0 10/26/2023 Active documented as of this encounter (statuses [...] mRNA, LNP-s, No Pre serve, 2-Dose Series (AnSyn) 01/01/2022,07/12/2021,08/25/2020,07/14 COVID-19, MRNA-LNP, 23-24, P F, 30 MCG/0.3 mL, 12 YRS AND ABOVE, IM ([employer]) 07/17/2023 Covid-19, Mrna, Lnp-s, Pf, B ivalent, [...] encounter Miscellaneous Notes * Telephone Encounter - Gina Lanza RP - 10/29/2023 2:22 PM EDT Referral received and reviewed. Reason for referral: Smoking Cessation Please Schedule patient. Referring provider: Dr. Morales Initial appt length: 40 min Appointment type indicated: Pt Prefence- Inperson or Video Referral reviewed and relevant pre-visit information listed below: Smoking cessation Gina Vera RPh 10/29/2023, 2:22 PM * Telephone Encounter - Judy Dahl PHARM Tech - 10/29/2023 1:58 PM EDT Pharmacist Medication Therapy Management: Minimum frequency patient should be seen in person for medication management: as appropriate per clinical condition and patient status By my signature, I understand that my patient Malika Gregory will have her medication therapy managed by the [facility] Medication Therapy [facility] ([facility]) per established policies,procedures, and protocols. I also certify that this referral may serve as an initiation of service for the management of drug therapy in the above noted patient. [facility] providers will be responsible for scheduling patient visits, obtaining appropriate laboratory studies, and adjusting medication management therapy per patient's need, in addition to those roles spelled out in the clinic policy, procedures, and drug management protocols. I understand that the service provided by the [facility] is voluntary and have informed patient that they can refuse the service at their discretion. I am aware that the [facility] Clinic will provide me with a copy of the patient encounter via my [employer]. I authorize the [facility] to carry out these activities on my behalf. I consider this program to be a necessary part of the patient's medical care. Ct Morales DO Order Specific Questions Referral Priority Within 10 days (routine) [facility] Referring Provider Role: Primary Care Reason for Referral: Smoking Cessation documented in this encounter Plan of Treatment Upcoming Encounters Date Type Department Care Team (Latest Contact Info) Description 4 3:40 PM EDT Office Visit Family Practice [address] [place] [address] 293 [place] [address] Ct Morales DO 293 [place] [address] 4 11:15 AM EDT Hospital Encounter ENDO OSS[facility], Endoscopy Room [facility] [address] [place] [phone] Dawit Mckay MD [address] [place] [address] 4 11:15 AM EDT - 4 12:15 PM EDT Surgery ENDO [facility], Endoscopy Room [facility] [address] [place] [phone] Dawit Mckay MD [address] [place] [address] ESOPHAGOGASTRODUODENOSCOPY (EGD), FLEXIBLE, TRANSORAL, ENDOSCOPIC ULTRASOUND 4 1:30 PM EDT Telemedicine Family Practice 65 [facility] [place] 293 [place] [address] College, Pharmacist 65 [facility] 293 [place] [address] 4 2:00 PM EDT Office Visit Hepatology, [facility] 132 [facility] [place] [address] Ashley Cheema MD [address] [place] [address] Scheduled Procedures Name Priority Associated Diagnoses Date/Ti me ESOPHAGOGASTRODUODENOSCOPY ( EGD), FLEXIBLE, TRANSORAL, ENDOSCOPIC ULTRASOUND Nodule of esophagus 11/18/2023 11:15 AM EDT COLONOSCOPY FLEXIBLE PROXIMA L DIAGNOSTIC Recall Encounter for screening colonoscopy Health Maintenance Due Date Last Done Comments DISCUSS TOBACCO CESSATION (REFER TO SMARTSET #1891) 1955 Cologuard 1998 Fecal Occult Blood Test [...] Documents on File Type Date Recorded Patient Automatic Shirring Machine Operator Expl anation Power of Wicker Molded Candles 01/11/2023 Porter Gregory POWER OF METAL FABRICATOR APPRENTICE Latest Code Status on File Code Status Date Activated Date Inactivated Comments Full Code 01/14/2023 2:09 PM 01/25/2023 6:20 PM This o rder reflects the patients wishes and were consensually agreed upon. Question Answer Comments Discussion of Advance Directives occurred with: Patient Does the patient have a Living Will? No Does the patient have Health Care Power of Wicker Molded Candles? No Code Status History Code Status Date [...] Agen t (per Health Care Power of Wicker Molded Candles document) Care Teams Studio Couch Frame Builder Relationship Specialty Start Date End Date Ct Morales DO [address] [place] [address] PCP - General Family Medicine 01/17/22 documented as of this encounter
--- OUTSIDE RECORDS SUMMARY | 2024-04-20 08:56 | External Medical Summary | Summary of Care ---
Author Name Unknown Organization [facility] Address [address] [place] [address] Phone [phone] Care Team Providers Care Board Liner Operator Name Role Phone Ct Morales DO Primary Care Provider Reason for Visit * Reason Onset Date Comments Medication Refill 10/25/2023 Encounter Details Date Type Department Care Team (Late st Contact Info) Description 10/25/2023 Refill Family Practice [address], [place] [address] [place] [address] Ct Morales DO 293 [place] [address] Tobacco abuse Allergies No known active allergiesdocumented [...] from [facility] 0 04/16/2018 Active metroNIDAZOLE 1 [...] mRNA, LNP-s, No Pre serve, 2-Dose Series ([employer]) 01/01/2022,07/12/2021,08/25/2020,07/14 COVID-19, MRNA-LNP, 23-24, P F, 30 MCG/0.3 mL, 12 YRS AND ABOVE, IM ([facility]) 07/17/2023 Covid-19, Mrna, Lnp-s, Pf, B [...] Miscellaneous Notes * Telephone Encounter - Alexandra Leon RPh - 10/26/2023 3:19 PM EDT Attempted to contact pt regarding smoking cessation and Chantix. Left message for patient to returnphone call. Also left MyG for patient regarding Chantix and MTM referral interest. Alexandra Leon PharmD PGY1 Superintendent Communications 10/26/2023 3:35 PM * Telephone Encounter - Alexandra Leon RPh - 10/26/2023 2:07 PM EDT Pending [...] up with smoking cessation. Calculated CrCl per [facility] is 55 mL/min. Thanks, Alexandra Leon, PharmD PGY1 Superintendent [employer] 10/26/2023 1:55 PM documented in this encounter Plan of Treatment Upcoming Encounters Date Type Department Care Team (Latest Contact Info) Description 11/06/2023 3:40 PM EDT Office Visit Family Practice [address], [place] 293 [facility] [place] [address] Ct Morales [facility] [address] 11/18/2023 11:15 AM EDT Hospital Encounter ENDO [facility], Endoscopy Room [facility] [address] [place] [phone] Dawit Mckay MD [address] [place] [address] 11/18/2023 11:15 AM EDT - 11/18/2023 12:15 PM EDT Surgery ENDO [facility], Endoscopy Room [facility] [address] [place] [phone] Dawit Mckay MD [address] [place] [address] ESOPHAGOGASTRODUODENOSCOPY (EGD), FLEXIBLE, TRANSORAL, ENDOSCOPIC ULTRASOUND 04/05/2024 2:00 PM EDT Office Visit Hepatology, [facility] [address] [place] [address] Ashley Cheema MD [address] [place] [address] Scheduled Procedures Name Priority Associated Diagnoses Date/Ti me ESOPHAGOGASTRODUODENOSCOPY ( EGD), FLEXIBLE, TRANSORAL, ENDOSCOPIC ULTRASOUND Nodule of esophagus 11/18/2023 11:15 AM EDT COLONOSCOPY FLEXIBLE PROXIMA L DIAGNOSTIC Recall Encounter for screening colonoscopy Health Maintenance Due Date Last Done Comments DISCUSS TOBACCO CESSATION (REFER TO SMARTSET #4422) 1955 Cologuard 1998 Fecal Occult Blood Test [...] Documents on File Type Date Recorded Patient Welder Tack Expl anation Power of Teller Vault 01/11/2023 Porter Gregory POWER OF TREE FELLER Latest Code Status on File Code Status Date Activated Date Inactivated Comments Full Code 01/14/2023 2:09 PM 01/25/2023 6:20 PM This o rder reflects the patients wishes and were consensually agreed upon. Question Answer Comments Discussion of Advance Directives occurred with: Patient Does the patient have a Living Will? No Does the patient have Health Care Power of Teller Vault? No Code Status History Code Status Date [...] Agents on File Name Relationship Healthcare Agent [facility] p Communication Porter Gregory Adult Child Health Care Agen t (per Health Care Power of Teller Vault document) Care Teams Board Liner Operator Relationship Specialty Start Date End Date Ct Morales DO 293 [place] [address] PCP - General Family Medicine 01/17/22 documented as of this encounter
--- OUTSIDE RECORDS SUMMARY | 2024-04-20 10:19 | External Medical Summary | Summary of Care ---
Author Name Unknown Organization [facility] Address [address] [place] [address] Phone [phone] Care Team Providers Care Answering Service Agent Name Role Phone Ct Morales DO Primary Care Provider [phone] Reason for Visit * Reason Onset Date Comments Appointment 04/19/2024 Encounter Details Date Type Department Care Team (Late st Contact Info) Description 04/19/[address] [facility] [address] [place] [place] [address] Brunilda Valerio PA-C [address] [facility] [address] Appointment Allergies No known active allergiesdocumented as of this encounter (statuses as of 04/19/2024) Medications Medication Sig Dispensed Refills Start Date [...] mg by mouth daily. DC from [facility] 04/16/2018 Active metroNIDAZOLE 1 % External [...] BEFORE THE FIRST MEAL OF THE DAY DO NOT CUT CRUSH OR CHEW 90 Tablet 1 04/05/2024 Active documented as of this encounter (statuses as of 04/19/2024) Active Problems Problem Noted Date Diagnosed Date [...] as of this encounter (statuses as of 04/19/2024) Resolved Problems Problem Noted Date Diagnosed Date [...] as of this encounter (statuses as of 04/19/2024) Immunizations Name Administration Dates Next Due COVID-19 mRNA, LNP-s, No Pre serve, 2-Dose Series (WellFX) 01/01/2022,07/12/2021,08/25/2020,07/14 COVID-19, MRNA-LNP, 23-24, P F, 30 [...] Adjuvanted, 65+ Yrs, IM (FLUAD) 04/20/2020 Seasonal Influenza Vac., MDV , IM, 0.5 mL (Fluzone) 05/03/2012,08/01/2011,08/23/2010,06/12,05/17/2008 Seasonal Influenza, PF, 6 M & above, IM , (FluLaval or Fluzone) 04/16/2018,05/19/2017 05/19/2018 Seasonal Influenza, Quadriva lent Hd (Fluzone Hd) 04/10/2023,04/16/2022,06/14/2021 Seasonal Influenza, Quadriva lent, No Preserve, IM 08/28/2015 TDAP (age 10 and older)(Boostrix) 06/14/2021 TDAP, Age 7 and older, IM (Adacel) 09/04/2009 Varicella Zoster Vaccine (Adult) 01/06/2016 Zoster Vaccine Recombinant (Shingrix) 01/17/2022 ,08/02/2021 documented as of this encounter Social History Tobacco Use Types Packs/Day Years Used Date Smoking Tobacco: Every Day Cigarettes 0.5 50.5 Started: 12/10/1972; Last attempted to quit: 12/10/2022 [...] No 07/17/2023 Does the household have a [facility] source of income? (Household - for ages [...] encounter Miscellaneous Notes * Telephone Encounter - Kori Alonso OSA - 04/19/2024 1:30 PM EDT Called pt to set up an appt with John. She canceled today, let her know on a voicemail the number she can call back. documented in this encounter Plan of Treatment Upcoming Encounters Date Type Department Care Team (Late st Contact Info) Description 05/03/2024 1:00 PM EDT Office Visit Family Practice 65 [facility] 293 [place] [address] Ct Morales DO 293 [place] [address] 06/24/2024 10:00 AM EST Office Visit [facility] Surgery [facility] 200 [place] [address] Paloma Vidales MD [address] [place] [address] 07/14/2024 10:30 AM EST Office Visit [facility] Surgery [facility] 200 [place] [address] Paloma Vidales MD [address] [place] [address], [place] [address] 07/19/2024 11:40 AM EST Office Visit [address] [place] [address] Mellissa Blanco PA-C [address] [place] [address] [place] [address] 07/26/2024 10:00 AM EST Office Visit [facility] Surgery [facility] [address] [place], [place] [address] Paloma Vidales MD 200 [place] [address] Scheduled Procedures Name Priority Associated Diagnoses Date/Ti [...] Documents on File Type Date Recorded Patient Strong Nitric Operator Expl anation Power of Vocational Nurse Lvn 01/11/2023 Porter Gregory POWER OF DOCUMENT CONTROL ASSISTANT * Full Code (Latest Code Status [...] Agents on File Name Relationship [facility] Agent [facility] Communication Porter Gregory Adult Child Health Care Agen t (per Health Care Power of Vocational Nurse Lvn document) Care Teams Answering Service Agent Relationship Specialty Start Date End Date Ct Morales DO 293 [place] [address] PCP - General Family Medicine 12/31/23 documented as of this encounter
--- NOTE | 2024-04-20 13:54 | Hospitalist Progress Note ---
Date of Service April 20, 2024 Assessment & Plan (1) COPD (chronic obstructive pulmonary disease): Plan: Presented with shortness of breath and cough and noted to have significant desaturation in the emergency room History of tobacco abuse and also history of COPD on albuterol inhaler at home but does not use any home oxygen Noted to have atypical pneumonia with respiratory failure at presentation Has been getting azithromycin and also nebulized bronchodilators and steroid Clinically much better CTA showed tree-in-bud/groundglass consolidation in the lingula with addition tree-in-bud opacities throughout the left lung Atypical pneumonia/inflammatory bronchitis Has been getting azithromycin for atypical pneumonia Clinically better today (2) Alcohol use: Plan: History of alcohol abuse Fatty liver disease as per records Has been on withdrawal protocol Minimal tremors involving the outstretched hands Denies any problem with ambulation (3) Hypertension: Plan: Situational hypertension Pressure seems to be controlled since admission (4) Hyperlipidemia: Plan: Continue with a statin (5) GERD (gastroesophageal reflux disease): Plan: Continue famotidine Plan Other significant medical condition are stable and as below:: Anxiety disorder, patient anxious during exam. Prediabetes, outpatient hemoglobin A1c of 6.6 last January 2023, patient meets criteria for DM2 diagnosis Basal bolus insulin, ISS BG goal 1 10-1 40, carb count coverage, update hemoglobin A1c, DM education Ongoing tobacco abuse Nicotine patch as needed DVT prophylaxis. Lovenox subcu Full code Admission and Anticipated Discharge Date Admission Date: April 19, 2024 Supervising Physician Co-Signing Physician Notes IM ATTENDING : Patient seen and examined. History obtained from patient and records. Concur with salient points upon review of preceding documentation by Ms. Joselyn Hassan PA-C. I take responsibility for plan of care below. In addition patient noted to be tremulous at the ER. FINAL ASSESSMENT AND PLAN as follows : Acute hypoxemic respiratory failure secondary to COPD exacerbation secondary to atypical pneumonia No sepsis for now Situational hypertension Alcohol withdrawal Text document was generated using [employer] voice recognition software. It may contain grammatical or spelling errors. Kindly contact undersigned for clarification of any documentation item in question. Subjective 04/20/2024 The patient was seen and examined in medical telemetry unit She has been feeling much better since admission Has minimal wheezing and minimal shortness of breath at rest Denies any chest pain and/or palpitation No fever and or chills Review of Systems Review of Systems: All systems reviewed and are unremarkable except as noted below Physical Exam Physical Exam: sitting at the edge of the bed without any acute distress Constitutional: well developed, well nourished, + ill appearing and average body habitus Eyes: PERRL, conjunctivae normal, anicteric sclerae ENMT: external ear and nose normal, oropharynx normal Neck: trachea midline, no thyromegaly Respiratory: + respiratory distress ( minimal distres s at rest) Auscu ltation: + diminished lung sounds, + crackles ( bilaterally at the bases) and + wheezes ( bilaterally) Cardiovascular: Rate/Rhythm: regular rate and regular rhythm; not tachycardic Heart Sounds: normal S1 and normal S2; no murmur Extremities: no edema Gastrointestinal (Abdomen): Inspection/Auscultation: normal bowel sounds; abdomen not distended Percussion/Palpation: abdomen soft; abdomen nontender Musculoskeletal: no acute arthritis involving any of the joint Neurologic: normal touch/pain/proprioception and moves all extremities; no focal motor deficits Psychiatric: A+Ox3, euthymic affect Lymphatic: no cervical or axillary lymphadenopathy Results & Data Results & Data Vital Signs (Past 12 Hours) Vital Signs Temp Pulse Pulse Resp BP Pulse Ox O2 Del Method 04/20/24 11:51 36.7 C 76 18 126/76 95 Nasal Cannula 04/20/24 10:16 Nasal Cannula 04/20/24 08:07 88 12 96 Nasal Cannula 04/20/24 07:54 36.5 C 85 18 104/61 94 Nasal Cannula 04/20/24 05:55 90 04/20/24 02:53 36.8 C 103 H 18 118/70 95 Nasal Cannula O2 Flow Rate 04/20/24 11:51 3 04/20/24 10:16 3 04/20/24 08:07 3 04/20/24 07:54 3 04/20/24 05:55 04/20/24 02:53 3 Laboratory Results Short CBC 04/19/24 04/20/24 Range/Units 16:37 05:58 WBC 9.53 9.20 (4.8-10.8) K/ul Hgb 15.8 13.0 (12.0-16.0) g/dl Hct 48.4 H 40.8 (37.0-47.0) % Plt Count 177 144 (130-400) K/uL BMP 04/19/24 04/20/24 16:37 05:58 Sodium 138 138 Potassium 3.9 4.4 Chloride 99 103 Carbon Dioxide 28 29 BUN 9 11 Creatinine 0.73 0.60 Glucose 153 H 155 H Calcium 9.1 8.4 L Medications Administered Current Inpatient Medications Atorvastatin Calcium (Atorvastatin 20 Mg Tab) 20 mg PO QAM [facility] Stop: 05/20/24 08:59 Last Admin: 04/20/24 08:41 Dose: 20 mg Azithromycin (Azithromycin 250 Mg Tab) 250 mg PO QAM [facility] Stop: 04/24/24 08:59 Last Admin: 04/20/24 08:41 Dose: 250 mg Dextrose (Dextrose 50% 50 Ml Syringe) 25 - 50 ml IV UD PRN; Protocol PRN Reason: Hypoglycemia Protocol Stop: 05/19/24 22:35 Duloxetine HCl ([facility] Hcl 30 Mg Cap) [facility] [place] [facility]: 05/20/24 08:59 Last Admin: 04/20/24 08:41 Dose: 30 mg Enoxaparin Sodium (Enoxaparin Inj 40 Mg/0.4 Ml Syr) 40 mg SQ QAM [facility] Stop: 05/20/24 08:59 Last Admin: 04/20/24 08:44 Dose: Not Given Famotidine (Famotidine 20 Mg Tab) 20 mg PO BID [facility] Stop: 05/19/24 21:29 Last Admin: 04/20/24 08:41 Dose: 20 mg Fluticasone/Umeclidinium/Vilanterol (Fluticasone/Umeclidin/Vilanter 100-62.5- 25) 1 puffs INH DAILY [facility] Stop: 05/20/24 08:59 Last Admin: 04/20/24 08:43 Dose: 1 puffs Folic Acid (Folic Acid 1 Mg Tab) 1 mg PO QAM [facility] Stop: 05/20/24 08:59 Last Admin: 04/20/24 08:41 Dose: 1 mg Gabapentin (Gabapentin 600 Mg Tab) 600 mg PO Q8H [facility] Stop: 04/21/24 09:01 Gabapentin (Gabapentin 600 Mg Tab) 600 mg PO Q12H [facility] Stop: 04/22/24 09:01 Gabapentin (Gabapentin 600 Mg Tab) 600 mg PO Q24H [facility] Stop: 04/23/24 09:01 Gabapentin (Gabapentin 600 Mg Tab) 600 mg PO BID [facility] Stop: 05/24/24 08:59 Glucagon (Glucagon For Inj 1 Mg Vial) 1 mg SQ UD PRN; Protocol PRN Reason: Hypoglycemia Protocol Stop: 05/19/24 22:35 Glucose (Glucose 40% Gel 15 Gm Tube) 15 - 30 gm PO UD PRN; Protocol PRN Reason: Hypoglycemia Protocol Stop: 05/19/24 22:35 Glucose (Glucose 10 Tab/Tube) 4 - 8 tab PO UD PRN; Protocol PRN Reason: Hypoglycemia Treatment Stop: 05/19/24 22:35 Insulin Aspart (Insulin Aspart Per Unit Charge) 0 units SC ACHS [facility] Stop: 05/19/24 22:35 Last Admin: 04/20/24 12:56 Dose: 4 units Insulin Glargine (Lantus Per Unit Charge) 5 units SQ HS [facility] Stop: 05/19/24 21:04 Last Admin: 04/19/24 21:48 Dose: 5 units Ipratropium [place] (Ipratropium [place] Neb Soln 0.02% 0.5mg/2.5ml Vial) 0.5 mg INH Q6R [facility] Stop: 05/20/24 00:00 Last Admin: 04/20/24 08:07 Dose: 0.5 mg Levalbuterol HCl (Levalbuterol 1.25 Mg/3 Ml Neb) 1.25 mg NEB Q6R [facility] Stop: 05/20/24 00:00 Last Admin: 04/20/24 08:07 Dose: 1.25 mg Lorazepam (Lorazepam 2 Mg/1 Ml Vial) 1 mg IV UD PRN; Protocol PRN Reason: EtOH Withdrawal AWSS Score 6,7 Stop: 05/19/24 20:59 Lorazepam (Lorazepam 2 Mg/1 Ml Vial) 2 mg IV UD PRN; Protocol PRN Reason: EtOH Withdrawal AWSS Score 8,9 Stop: 05/19/24 20:59 Lorazepam (Lorazepam 2 Mg/1 Ml Vial) 3 mg IV ONCE PRN; Protocol PRN Reason: EtOH Withdrawal AWSS Score 10+ Lorazepam (Lorazepam 0.5 Mg Tab) 0.5 mg PO TID PRN PRN Reason: Anxiety Stop: 05/19/24 21:05 Last Admin: 04/19/24 23:24 Dose: 0.5 mg Miscellaneous (Carbohydrates For Hypoglycemia ) 15 - 30 gm PO UD PRN PRN Reason: Hypoglycemia Protocol Stop: 05/19/24 22:35 Multivitamins (Multivitamin Tab) 1 tab PO QAM [facility] Stop: 05/20/24 08:59 Last Admin: 04/20/24 08:41 Dose: 1 tab Pantoprazole Sodium (Pantoprazole 40 Mg Tab) 40 mg PO QAM [facility] Stop: 05/20/24 08:59 Last Admin: 04/20/24 08:41 Dose: 40 mg Prednisone (Prednisone 20 Mg Tab) 40 mg PO DAILY [facility] Stop: 04/24/24 08:59 Last Admin: 04/20/24 08:41 Dose: 40 mg Psyllium Hydrophilic Mucilloid (Psyllium Or Guar Gum Fiber 4gm Packet) [facility] [place] [facility]: 05/20/24 12:44 Thiamine HCl (Thiamine Hcl 100 Mg Tab) 100 mg PO QAM [facility] Stop: 05/20/24 08:59 Last Admin: 04/20/24 08:41 Dose: 100 mg
[2024-04-20] MEDS: PSYLLIUM or GUAR GUM FIBER 4GM PACKET PO SCH (14:48)
--- NOTE | 2024-04-20 15:08 | Electrocardiogram Report ---
Test Reason : Blood Pressure : */* mmHG Vent. Rate : 115 BPM Atrial Rate : 115 BPM P-R Int : 162 ms QRS Dur : 70 ms QT Int : 322 ms P-R-T Axes : 69 69 53 degrees QTcB Int : 445 ms Sinus tachycardia Otherwise normal ECG When compared with ECG of 24-Jan-2020 18:15, Premature ventricular complexes are no longer Present Confirmed by Edwin Vasquez ([id number]) on 04/20/2024 3:07:33 PM Referred By: REFERRED SELF Confirmed By: Edwin Vasquez
[2024-04-21 06:35] LABS: Calcium 8.6 mg/dl (8.6-10.3); Creatinine Clr Calc Pharmacy 88.1 ml/min; Magnesium 1.7 mg/dl (1.7-2.4); Potassium 3.8 mmol/L (3.5-5.1)
[2024-04-21 07:01] LABS: Hematocrit (blood only) 38.9 % (37.0-47.0); Hemoglobin 12.6 g/dl (12.0-16.0); Mean Corpuscular Hemoglobin 35.8 pg (25.0-34.0); Mean Corpuscular Hgb Conc 32.4 g/dL (32.0-36.0); Mean Corpuscular Volume 110.5 fL (80.0-100.0); Mean Platelet Volume 11.2 fL (9.4-12.4); Platelet Count 142 K/uL (130-400); RDW Standard Deviation 51.9 fL (36.4-46.3); Red Blood Count 3.52 M/uL (4.20-5.40); White Blood Count 7.23 K/ul (4.8-10.8)
[2024-04-21 07:13] LABS: Basophils # (auto) 0.01 K/uL (0.00-0.20); Basophils % (auto) 0.1 %; Eosinophils # (auto) 0.01 K/uL (0.00-0.50); Eosinophils % (auto) 0.1 %; Immature Granulocytes # (auto) 0.04 K/uL (0.01-0.20); Immature Granulocytes % (auto) 0.6 %; Lymphocytes # (auto) 1.25 K/uL (1.20-3.40); Lymphocytes % (auto) 17.3 %; Macrocytosis Present; Monocytes % (auto) 9.7 %; Neutrophils # (auto) 5.22 K/uL (1.40-6.50); Neutrophils % (auto) 72.2 %; Polychromasia 1+
--- NOTE | 2024-04-21 11:34 | Hospitalist Progress Note ---
Date of Service April 21, 2024 Assessment & Plan (1) COPD (chronic obstructive pulmonary disease): Plan: Presented with shortness of breath and cough and noted to have significant desaturation in the emergency room History of tobacco abuse and also history of COPD on albuterol inhaler at home but does not use any home oxygen Noted to have atypical pneumonia with respiratory failure at presentation Has been getting azithromycin and also nebulized bronchodilators and steroid Clinically much better Still has wheezing but denies any more shortness of breath Has been requiring 3 L to maintain saturation Will get PT and OT evaluation and also a 2 steps O2 saturation test prior to discharge Strongly advised to quit smoking CTA showed tree-in-bud/groundglass consolidation in the lingula with addition tree-in-bud opacities throughout the left lung Atypical pneumonia/inflammatory bronchitis Has been getting azithromycin for atypical pneumonia Clinically better today (2) Alcohol use: Plan: History of alcohol abuse Fatty liver disease as per records Has been on withdrawal protocol Minimal tremors involving the outstretched hands Denies any problem with ambulation No tremors with outstretched hands and does not have any unsteady gait (3) Hypertension: Plan: Situational hypertension Pressure seems to be controlled since admission (4) Hyperlipidemia: Plan: Continue with a statin (5) GERD (gastroesophageal reflux disease): Plan: Continue famotidine Plan Other significant medical condition are stable and as below:: Anxiety disorder, patient anxious during exam. Prediabetes, outpatient hemoglobin A1c of 6.6 last January 2023, patient meets criteria for DM2 diagnosis Basal bolus insulin, ISS BG goal 1 10-1 40, carb count coverage, update hemoglobin A1c, DM education Ongoing tobacco abuse Nicotine patch as needed DVT prophylaxis. Lovenox subcu Full code Admission and Anticipated Discharge Date Admission Date: April 19, 2024 Subjective 04/20/2024 The patient was seen and examined in medical telemetry unit She has been feeling much better since admission Has minimal wheezing and minimal shortness of breath at rest Denies any chest pain and/or palpitation No fever and or chills 04/21/2024 The patient was seen and examined in medical telemetry unit She has been complaining of some wheezing but does not have any shortness of breath at rest or with ambulation She will have 2 steps O2 saturation prior to discharge home this afternoon Will have PT and OT evaluation Review of Systems Review of Systems: All systems reviewed and are unremarkable except as noted below Physical Exam Physical Exam: sitting at the edge of the bed without any acute distress Constitutional: well developed, well nourished, + ill appearing and average body habitus Eyes: PERRL, conjunctivae normal, anicteric sclerae ENMT: external ear and nose normal, oropharynx normal Neck: trachea midline, no thyromegaly Respiratory: + respiratory distress ( minimal distres s at rest) Auscultation: + diminished lung sounds, + crackles ( bilaterally at the bases) and + wheezes ( bilaterally) Cardiovascular: Rate/Rhythm: regular rate and regular rhythm; not tachycardic Heart Sounds: normal S1 and normal S2; no murmur Extremities: no edema Gastrointestinal (Abdomen): Inspection/Auscultation: normal bowel sounds; abdomen not distended Percussion/Palpation: abdomen soft; abdomen nontender Musculoskeletal: no acute arthritis involving any of the joint Neurologic: normal touch/pain/proprioception and moves all extremities; no focal motor deficits Psychiatric: A+Ox3, euthymic affect Lymphatic: no cervical or axillary lymphadenopathy Results & Data Results & Data Vital Signs (Past 12 Hours) Vital Signs Temp Pulse Pulse Resp BP BP Pulse Ox 04/21/24 08:00 04/21/24 07:25 36.7 C 89 18 144/84 H 99 04/21/24 07:10 95 H 18 98 04/21/24 07:00 92 H 04/21/24 02:59 36.8 C 93 H 18 128/75 95 04/21/24 00:58 95 H 18 96 O2 Del Method O2 Flow Rate 04/21/24 08:00 Nasal Cannula 3 04/21/24 07:25 Nasal Cannula, Nebulizer 6 04/21/24 07:10 Nasal Cannula 3 04/21/24 07:00 04/21/24 02:59 Nasal Cannula 3 04/21/24 00:58 Nasal Cannula 3 Laboratory Results Short CBC 04/21/24 Range/Units 05:26 WBC 7.23 (4.8-10.8) K/ul Hgb 12.6 (12.0-16.0) g/dl Hct 38.9 (37.0-47.0) % Plt Count 142 (130-400) K/uL BMP 04/21/24 05:26 Sodium 138 Potassium 3.8 Chloride 102 Carbon Dioxide 31 BUN 12 Creatinine 0.60 Glucose 123 H Calcium 8.6 Medications Administered Current Inpatient Medications Atorvastatin Calcium (Atorvastatin 20 Mg Tab) 20 mg PO QAM [facility] Stop: 05/20/24 08:59 Last Admin: 04/21/24 09:33 Dose: 20 mg Azithromycin (Azithromycin 250 Mg Tab) 250 mg PO QAM [facility] Stop: 04/24/24 08:59 Last Admin: 04/21/24 09:33 Dose: 250 mg Dextrose (Dextrose 50% 50 Ml Syringe) 25 - 50 ml IV UD PRN; Protocol PRN Reason: Hypoglycemia Protocol Stop: 05/19/24 22:35 Duloxetine HCl (Duloxetine Hcl 30 Mg Cap) 30 mg PO QAM [facility] Stop: 05/20/24 08:59 Last Admin: 04/21/24 09:33 Dose: 30 mg Enoxaparin Sodium (Enoxaparin Inj 40 Mg/0.4 Ml Syr) 40 mg SQ QAM [facility] Stop: 05/20/24 08:59 Last Admin: 04/21/24 09:38 Dose: 40 mg Famotidine (Famotidine 20 Mg Tab) 20 mg PO BID [facility] Stop: 05/19/24 21:29 Last Admin: 04/21/24 09:33 Dose: 20 mg Fluticasone/Umeclidinium/Vilanterol (Fluticasone/Umeclidin/Vilanter 100-62.5-25) 1 puffs INH DAILY [facility] Stop: 05/20/24 08:59 Last Admin: 04/21/24 09:38 Dose: 1 puffs Folic Acid (Folic Acid 1 Mg Tab) 1 mg PO QAM [facility] Stop: 05/20/24 08:59 Last Admin: 04/21/24 09:33 Dose: 1 mg Gabapentin (Gabapentin 600 Mg Tab) 600 mg PO Q12H [facility] Stop: 04/22/24 09:01 Gabapentin (Gabapentin 600 Mg Tab) 600 mg PO Q24H [facility] Stop: 04/23/24 09:01 Gabapentin (Gabapentin 600 Mg Tab) 600 mg PO BID [facility] Stop: 05/24/24 08:59 Glucagon (Glucagon For Inj 1 Mg Vial) 1 mg SQ UD PRN; Protocol PRN Reason: Hypoglycemia Protocol Stop: 05/19/24 22:35 Glucose (Glucose 40% Gel 15 Gm Tube) 15 - 30 gm PO UD PRN; Protocol PRN Reason: Hypoglycemia Protocol Stop: 05/19/24 22:35 Glucose (Glucose 10 Tab/Tube) 4 - 8 tab PO UD PRN; Protocol PRN Reason: Hypoglycemia Treatment Stop: 05/19/24 22:35 Insulin Aspart (Insulin Aspart Per Unit Charge) 0 units SC ACHS [facility] Stop: 05/19/24 22:35 Last Admin: 04/21/24 09:32 Dose: 4 units Insulin Glargine (Lantus Per Unit Charge) 5 units SQ HS [facility] Stop: 05/19/24 21:04 Last Admin: 04/20/24 20:17 Dose: 5 units Ipratropium [place] (Ipratropium [place] Neb Soln 0.02% 0.5mg/2.5ml Vial) 0.5 mg INH Q6R [facility] Stop: 05/20/24 00:00 Last Admin: 04/21/24 07:10 Dose: 0.5 mg Levalbuterol HCl (Levalbuterol 1.25 Mg/3 Ml Neb) 1.25 mg NEB Q6R [facility] Stop: 05/20/24 00:00 Last Admin: 04/21/24 07:10 Dose: 1.25 mg Lorazepam (Lorazepam 2 Mg/1 Ml Vial) 1 mg IV UD PRN; Protocol PRN Reason: EtOH Withdrawal AWSS Score 6,7 Stop: 05/19/24 20:59 Lorazepam (Lorazepam 2 Mg/1 Ml Vial) 2 mg IV UD PRN; Protocol PRN Reason: EtOH Withdrawal AWSS Score 8,9 Stop: 05/19/24 20:59 Lorazepam (Lorazepam 2 Mg/1 Ml Vial) 3 mg IV ONCE PRN; Protocol PRN Reason: EtOH Withdrawal AWSS Score 10+ Lorazepam (Lorazepam 0.5 Mg Tab) 0.5 mg PO TID PRN PRN Reason: Anxiety Stop: 05/19/24 21:05 Last Admin: 04/21/24 03:08 Dose: 0.5 mg Miscellaneous (Carbohydrates For Hypoglycemia ) 15 - 30 gm PO UD PRN PRN Reason: Hypoglycemia Protocol Stop: 05/19/24 22:35 Multivitamins (Multivitamin Tab) 1 tab PO QAM [facility] Stop: 05/20/24 08:59 Last Admin: 04/21/24 09:33 Dose: 1 tab Pantoprazole Sodium (Pantoprazole 40 Mg Tab) 40 mg PO QAM [facility] Stop: 05/20/24 08:59 Last Admin: 04/21/24 09:33 Dose: 40 mg Prednisone (Prednisone 20 Mg Tab) 40 mg PO DAILY [facility] Stop: 04/24/24 08:59 Last Admin: 04/21/24 09:33 Dose: 40 mg Psyllium Hydrophilic Mucilloid (Psyllium Or Guar Gum Fiber 4gm Packet) 4 gm PO [facility] Stop: 05/20/24 12:44 Last Admin: 04/21/24 09:38 Dose: 4 gm Thiamine HCl (Thiamine Hcl 100 Mg Tab) 100 mg PO [facility] Stop: 05/20/24 08:59 Last Admin: 04/21/24 09:33 Dose: 100 mg
[2024-04-21 12:36] VITALS: O2SAT 90
[2024-04-21 12:48] VITALS: PULSE 103; RESP 22; TEMP 99
[2024-04-21 14:58] VITALS: BP 128/75
[2024-04-21] MEDS ORDERED: GABAPENTIN 600 MG TAB PO SCH (21:00)
[2024-04-23] MEDS ORDERED: GABAPENTIN 600 MG TAB PO SCH (09:00)
[2024-04-24] MEDS ORDERED: GABAPENTIN 600 MG TAB PO SCH (09:00)
== END 2024-04-21 16:21 | disposition home or self-care (01) | DRG 190 ==
LOC: ED 16:14 → 2W 20:46

== ENCOUNTER 2024-05-25 08:58 | Inpatient (IN) ==
--- NOTE | 2024-05-25 09:09 | Emergency Department Note ---
Impression & Plan VIRK (dyspnea on exertion), AA (alcohol abuse), Tobacco abuse, Abnormal LFTs, Duodenitis ED Provider Note NAME: VIOLA VANG AGE: 68 SEX: F : 1955 ARRIVES VIA: Ambulance INFORMANT: Patient, EMS ED PROVIDER(S): Edwin Aleman DO CHIEF COMPLAINT: Palpitations HPI: The patient is a 68-year-old female who presented to the emergency department for an evaluation of palpitations. The patient was recently admitted to our facility for pneumonia. She has a history of tobacco use as well as COPD. She continues to smoke but she states recently she has been having trouble with weakness shortness of breath with exertion and feeling that her heart is beating very fast. She has been compliant with her outpatient medications. She did not use her inhaler today. She denies having any abdominal pain or back pain. She denies having any nausea or vomiting. The patient presented to the emergency department by ambulance today because of worsening symptoms this morning. She has not seen her family doctor recently. ROS: See above HPI for pertinent positives & negatives. A total of 10 systems reviewed and were otherwise negative. PAST MEDICAL HISTORY: See Below PAST SURGICAL HISTORY: See Below FAMILY HISTORY: See Below SOCIAL HISTORY: See Below HOME MEDICATIONS: See Below ALLERGIES: See Below VITALS: See Below PHYSICAL EXAMINATION: GENERAL: The patient is awake and alert. The patient is anxious appearing. EYES: The conjunctivae are clear. The pupils are round and reactive. EARS, NOSE, MOUTH AND THROAT: The nose is without any evidence of any deformity. NECK: The neck is nontender and supple. RESPIRATORY: Diminished breath sounds are noted throughout. There was conversational dyspnea noted. CARDIOVASCULAR: Tachycardic and regular heart sounds were noted to auscultation. There is no definite murmur. GASTROINTESTINAL: The abdomen is soft. Abdomen is nontender. MUSCULOSKELETAL/EXTREMITIES: There is no evidence of gross deformity full range of motion is noted in the hips and shoulders. SKIN: There is no obvious evidence of any rash. There are no petechiae, pallor or cyanosis noted. NEUROLOGIC: Patient is awake alert and oriented x3 MEDICAL DECISION MAKING: The patient is a 68-year-old female who presented to the emergency department for an evaluation of shortness of breath and palpitations. She has noticed that her heart rate was going fast anytime she would exert herself. She was recently admitted to our facility. I was concerned about the possibility of venous thromboembolic disease given her immobility as well as her complaints. The patient does continue to use tobacco products. She also uses alcohol. I discussed the patient's laboratory and radiographic studies with her. She was treated with IV fluids and IV Protonix. No definite cause for her palpitations could be found. She has no signs of PE on CT of the chest. She does have a slight elevation in her troponin. [facility] to evaluate the patient in the emergency department for further management and disposition. Triage Nursing notes reviewed. Prior medical records reviewed Vital Signs: reviewed and remarkable for tachycardia Differential diagnosis: Premature contractions, electrolyte abnormality, cardiac dysrhythmia, thyroid dysfunction, pulmonary embolism, infection, gastrointestinal, as well as other pathologies. ER treatment provided: See below Diagnostics interpreted by me: ECG: EKG was obtained in the emergency department. My interpretation is sinus tachycardia at 112 bpm. PVC was noted. Peaked T waves were noted. This was compared to a tracing from May 01, 2024. No significant changes were noted. Cardiac Monitoring: An order was placed for continuous cardiac monitoring. The monitor shows a rate of 105 bpm with sinus tachycardia. Laboratory studies: As stated above and show below. Imaging studies: See below. Radiographic imaging was reviewed by myself Consultation(s): [facility] will [facility] the patient in the emergency department. Past Med/Surg History Problem List Duodenitis (Acute) Abnormal LFTs (Acute) VIRK (dyspnea on exertion) (Acute) COPD (chronic obstructive pulmonary disease) Pneumonia (Acute) Hypoxia (Acute) Diverticulitis of large intestine with abscess (Acute) Lesion of liver (Acute) Alcohol dependence (Acute) Liver abscess Hematuria Hypoxia Tobacco use Liver lesion Diverticulitis (Acute) Elevated LFTs Rectal bleeding Elevated d-dimer Macrocytic anemia PVT (portal vein thrombosis) Fluid overload Alcohol use (Chronic) Encounter for pre-operative examination Hypomagnesemia (Acute) Hypophosphatemia (Acute) Common bile duct dilatation (Acute) Abdominal pain (Acute) DVT prophylaxis (Acute) Discharge planning issues (Acute) Alcohol withdrawal (Acute) Hyperbilirubinemia (Acute) UTI (urinary tract infection) Pulmonary embolism (Acute) Sepsis (Acute) Hypertension (Chronic) Hyperlipidemia (Chronic) Anxiety (Chronic) Diverticulosis of colon (Chronic) Hypokalemia (Acute) Respiratory failure, acute Depression (Chronic) Fatty liver (Chronic) AA (alcohol abuse) (Chronic) Tobacco abuse (Chronic) GERD (gastroesophageal reflux disease) (Chronic) H/O: (Chronic) History of oophorectomy, unilateral (Chronic) H/O wisdom tooth extraction (Chronic) Medical History (Updated 05/25/24 @ 11:31 by Edwin Aleman DO) Hx of ectopic Transaminitis Surgical History Hx of eye surgery Family History Other No significant family history Social History Smoking Status: Current every day smoker Tobacco Type: Cigarettes Cigarettes Per Day: 3; Second Hand Exposure: Yes; Do You Dip or Chew Tobacco: No; Hx Alcohol Use: Yes Alcohol type: hard liquor Hx Substance Use: No Preferred Language: [place] Communication Ability: Effective Piano Tuner Required: No Beliefs That Will Affect Care: None marital status: Single Current Living Situation: Alone Feels Safe at Home: Yes Assistive Devices: None Allergies Allergies Allergy/AdvReac Type Severity Reaction Status Date / Time No Known Allergies Allergy Verified 04/19/24 19:48 Home Meds Home Medications Medication Instructions Recorded Confirmed cholecalciferol (vitamin D3) 25 1,000 units PO Q2D 04/02/18 05/01/24 mcg (1,000 unit) capsule (Vitamin D3) lorazepam 1 mg tablet 0.5 - 1 mg PO TID PRN Anxiety 04/02/18 05/01/24 albuterol sulfate 90 mcg/actuation 2 puff inhalation Q4H PRN 01/24/20 05/01/24 aerosol inhaler Shortness Of Breath Or Wheezing magnesium 250 mg tablet 125 mg PO DAILY 01/24/20 05/01/24 fluticasone fur. 100 mcg-umeclid 1 inh inhalation DAILY 08/30/22 05/01/24 62.5 mcg-vilant 25 mcg inhalat.powder (Trelegy Ellipta) atorvastatin 20 mg tablet 20 mg PO QAM 04/19/24 05/01/24 calcium carbonate 500 mg PO HS 04/19/24 05/01/24 duloxetine 30 mg capsule,delayed 30 mg PO QAM 04/19/24 05/01/24 release gabapentin 600 mg tablet 600 mg PO BID 04/19/24 05/01/24 metronidazole 1 % topical gel 1 applic topical DAILY PRN 04/19/24 05/01/24 (Metrogel) Perioral Dermatitis multivitamin 1 tab PO HS 04/19/24 05/01/24 pantoprazole 20 mg tablet,delayed 20 mg PO QAM 04/19/24 05/01/24 release Previous Rx's Medication Instructions Recorded folic acid 1 mg tablet 1 mg PO DAILY #30 tabs 04/13/18 thiamine HCl (vitamin B1) 100 mg 100 mg PO DAILY #30 tabs 04/13/18 tablet levalbuterol HCl 1.25 mg/3 mL 1.25 mg (3 mL) NEB Q6R PRN 04/21/24 solution for nebulization Shortness Of Breath Or Wheezing #50 mL Results & Data (ED) Vital Signs Vital Signs - 24 hr 05/25/24 09:34 05/25/24 09:34 05/25/24 09:36 Temperature 37.0 C Temperature Source Oral Pulse Rate 110 H 115 H 110 H Pulse Rate from SpO2 Sensor 106 H Pulse Rhythm Regular Pulse Strength Normal Respiratory Rate 22 20 Respiratory Effort / Characteristics Non-Labored Respiratory Depth Normal Respiratory Pattern Regular Blood Pressure 142/89 H 126/89 Blood Pressure Mean 106 101 Blood Pressure Position Lying Pulse Oximetry 98 97 Oxygen Delivery Method Nasal Cannula Oxygen Flow Rate 3 Sepsis Recent Fever Within 48 Hours No Sepsis New/Unexplained Change in Mental Status N/A Sepsis Action Taken by Nursing Physician Notified 05/25/24 09:41 05/25/24 09:41 05/25/24 10:06 Temperature Temperature Source Pulse Rate 105 H Pulse Rate from SpO2 Sensor 105 H Pulse Rhythm Pulse Strength Respiratory Rate 16 Respiratory Effort / Characteristics Non-Labored Spontaneous Respiratory Depth Normal Respiratory Pattern Regular Blood Pressure Blood Pressure Mean Blood Pressure Position Pulse Oximetry 97 Oxygen Delivery Method Nasal Cannula Nasal Cannula Oxygen Flow Rate 3 3 Sepsis Recent Fever Within 48 Hours Sepsis New/Unexplained Change in Mental Status Sepsis Action Taken by Nursing 05/25/24 10:39 05/25/24 11:00 Temperature Temperature Source Pulse Rate 103 H 105 H Pulse Rate from SpO2 Sensor 101 H 106 H Pulse Rhythm Pulse Strength Respiratory Rate 18 17 Respiratory Effort / Characteristics Respiratory Depth Respiratory Pattern Blood Pressure 145/82 H 161/93 H Blood Pressure Mean 103 115 Blood Pressure Position Pulse Oximetry 98 97 Oxygen Delivery Method Oxygen Flow Rate Sepsis Recent Fever Within 48 Hours Sepsis New/Unexplained Change in Mental Status Sepsis Action Taken by Assisted Medications Current Medication List: was personally reviewed by me Laboratory Data Attestation: I reviewed the patient's lab results. 05/25/24 09:27 05/25/24 09:27 Lab Results 05/25/24 05/25/24 05/25/24 Range/Units 09:20 09:27 09:52 WBC 3.83 L (4.8-10.8) K/ul RBC 3.80 L (4.20-5.40) M/uL Hgb 13.3 (12.0-16.0) g/dl POC Hgb 13.6 (12.0-16.0) g/dl Hct 39.2 (37.0-47.0) % POC Hct 40 (37-47) % MCV 103.2 H (80.0-100.0) fL MCH 35.0 H (25.0-34.0) pg MCHC 33.9 (32.0-36.0) g/dL RDW Std Deviation 49.0 H (36.4-46.3) fL RDW Coeff of Vale 12.9 (11.5-14.5) % Plt Count 86 L (130-400) K/uL MPV 12.1 (9.4-12.4) fL Immature Gran % (Auto) 0.5 % Neut % (Auto) 62.7 % Lymph % (Auto) 26.1 % Simpson % (Auto) 8.9 % Eos % (Auto) 1.3 % Baso % (Auto) 0.5 % Neut # (Auto) 2.40 (1.40-6.50) K/uL Lymph # (Auto) 1.00 L (1.20-3.40) K/uL Simpson # (Auto) 0.34 (0.11-0.59) K/uL Eos # (Auto) 0.05 (0.00-0.50) K/uL Baso # (Auto) 0.02 (0.00-0.20) K/uL Immature Gran # (Auto) 0.02 (0.01-0.20) K/uL PT 12.4 H (9.0-12.0) Seconds INR 1.2 H (0.9-1.1) APTT 25 (21-31) Seconds PTT Ratio 0.9 D-Dimer 1580 H* (0-500) ug/L FEU POC Sodium 135 (135-144) mmol/L Sodium 135 L (136-145) mmol/L POC Potassium 3.6 (3.3-5.0) mmol/L Potassium 3.6 (3.5-5.1) mmol/L POC Chloride 95 L (101-112) mmol/L Chloride 93 L (98-107) mmol/L Carbon Dioxide 32 (21-32) mmol/L POC Total CO2 30 (24-31) mmol/L Anion Gap 10 (3-11) POC Anion Gap 15.0 L (16-25) mmol/L POC BUN 9 (7-18) mg/dl BUN 10 (6-23) mg/dl Creatinine 0.79 (0.6-1.2) mg/dl POC Creatinine 0.8 (0.6-1.3) mg/dl Est Cr Clr Drug Dosing 67.0 ml/min eGFR 80.42 BUN/Creatinine Ratio 12.7 (10-20) Glucose 152 H (70-99(Fasting)) mg/dl POC Glucose (other) 159 H (70-99) mg/dl Calcium 8.7 (8.6-10.3) mg/dl POC Ioniz Calcium Cristy 1.00 L (1.12-1.32) mmol/l Magnesium 1.3 L (1.7-2.4) mg/dl Total Bilirubin 3.6 H (0.2-1.0) mg/dl Direct Bilirubin 1.4 H (0-0.2) mg/dl AST 381 H (13-39) U/L ALT 163 H (7-52) U/L Alkaline Phosphatase 383 H (34-104) U/L Troponin I High Sens 20.6 H (0-14) pg/ml Total Protein 6.7 (6.0-8.3) gm/dl Albumin 3.7 (3.4-5.0) gm/dl Globulin 3.0 (2.5-4.0) gm/dl Albumin/Globulin Ratio 1.2 (0.9-2) TSH 5.442 H (0.300-4.500) uIu/ml Free T4 1.16 (0.61-1.60) ng/dl Adenovirus (PCR) Not Detected (NotDetected) B. pertussis DNA (PCR) Not Detected (NotDetected) B.parapertussis DNA PCR Not Detected (NotDetected) C. pneumoniae DNA (PCR) Not Detected (NotDetected) Coronavirus OC43 (PCR) Not Detected (NotDetected) Coronavirus HKU1 (PCR) Not Detected (NotDetected) Coronavirus 229E (PCR) Not Detected (NotDetected) SARS-CoV-2 (PCR) Not Detected (NotDetected) Coronavirus NL63 (PCR) Not Detected (NotDetected) Human Metapneumovir PCR Not Detected (NotDetected) Influenza Type A (PCR) Not Detected (NotDetected) Influenza Type B (PCR) Not Detected (NotDetected) M. pneumoniae (PCR) Not Detected (NotDetected) Parainfluenza 1 (PCR) Not Detected (NotDetected) Parainfluenza 2 (PCR) Not Detected (NotDetected) Parainfluenza 3 (PCR) Not Detected (NotDetected) Parainfluenza 4 (PCR) Not Detected (NotDetected) RSV (PCR) Not Detected (NotDetected) Entero/Rhino (PCR) Not Detected (NotDetected) Administered Medications Magnesium Sulfate/Dextrose (Magnesium Sulfate / D5w) 1 gm in 100 mls @ 100 mls/hr IV Q1H FELIX Stop: 05/25/24 12:16 Last Admin: 05/25/24 11:26 Dose: 100 mls/hr Documented By: DAY Sodium Chloride (Nss) 1,000 mls @ 999 mls/hr IV .Q1H1M ONE Stop: 05/25/24 12:21 Last Admin: 05/25/24 11:26 Dose: 999 mls/hr Documented By: DAY Discontinued Medications Ioversol (Optiray 320 125ml) 120 ml IV ONCE ONE Stop: 05/25/24 10:50 Last Admin: 05/25/24 10:50 Dose: 120 ml Documented By: HERIBERTO Imaging Data Attestation: I personally reviewed and interpreted this imaging study as follows: My Impression: 1 chest x-ray was obtained in the emergency department. My interpretation is no free air or definite infiltrate, final report below. CT of the chest was obtained in the emergency department. My interpretation is no free air or definite infiltrate, final report below. Radiologist's Impression: Chest X-Ray 05/25/24 09:02 XR chest 1V portable CLINICAL HISTORY: Dysrhythmia. COMPARISON STUDY: Chest CT April 19, 2024. Chest radiograph May 01, 2024. FINDINGS: Old right humeral neck fracture is incidentally noted. Lung volumes are normal. Minimal left basilar opacity is unchanged. There is no pneumothorax or pleural effusion. Cardiac size is normal. Mediastinal contours are normal. There is no evidence for pulmonary edema. IMPRESSION: No change in appearance of the chest. Minimal left basilar opacity, similar to prior exam. This favors a chronic infectious process when correlating with prior CT. ACT 112: Negative or not required by law. Electronically signed by: Cali Blankenship M.D. 05/25/2024 9:19 AM Abdomen/Pelvis CT 05/25/24 10:34 CT OF THE ABDOMEN AND PELVIS WITH CONTRAST CLINICAL HISTORY: Abnormal liver function tests COMPARISON STUDY: CT of the abdomen and pelvis January 24, 2020. MRI of the abdomen January 26, 2020. Right upper cord ultrasound September 02, 2022. TECHNIQUE: Following IV administration of 120 mL of Optiray, axial images of the abdomen and pelvis were obtained from the lung bases to the proximal femurs. Images were reviewed in the axial, sagittal, and coronal planes. IV contrast was administered without complication. Automated exposure control was utilized for the study. A dose lowering technique was utilized adhering to the principles of ALARA. FINDINGS: No pneumatosis, free air or portal venous gas is present. There is severe hepatic steatosis. The right hepatic lobe is enlarged and the left hepatic lobe is atrophied. The left portal vein is not well visualized. The main and right portal veins are patent. The right hepatic lobe abnormality on prior CT and MRI is not visualized. The spleen, adrenal glands, left kidney and pancreas are unremarkable. A water attenuation 4 cm right lower pole lesion represents a cyst. There is no biliary or pancreatic ductal dilatation. There is mild wall thickening of the second portion the duodenum with mild adjacent stranding. There is no extraluminal gas. There is no fluid collection. Colonic diverticulosis is present. There is no evidence for a bowel obstruction status post sigmoid resection. A cystic 4.4 cm left adnexal lesion has mildly decreased in size since CT of January 24, 2020. This remains indeterminate. There is no lymphadenopathy. IMPRESSION: 1. Severe hepatic steatosis. Enlargement of the right hepatic lobe and left hepatic lobe atrophy suggests cirrhosis. 2. Mild wall thickening of the second portion of the duodenum with adjacent stranding. This may reflect duodenitis. Acute pancreatitis is within the differential although considered less likely. 3. No bowel obstruction. Colonic diverticulosis. No evidence for acute diverticulitis. 4. 4.4 cm cystic left adnexal lesion which has mildly decreased in size since CT of January 24, 2020. This remains indeterminate. ACT 112: Negative or not required by law. Electronically signed by: Cali Blankenship M.D. 05/25/2024 11:11 AM Chest CTA 05/25/24 10:34 CT ANGIOGRAPHY OF THE CHEST, PULMONARY EMBOLUS PROTOCOL CLINICAL HISTORY: Shortness of breath. Tachycardia. COMPARISON STUDY: Chest CT April 19, 2024. Chest radiograph performed earlier today. TECHNIQUE: Following IV administration of 120 mL of Optiray, helical axial images of the chest were obtained utilizing the pulmonary embolus protocol. Maximal intensity projections and sagittal and coronal reformats were viewed on an independent 3D workstation. IV contrast was administered without complication. Automated exposure control was utilized for the study. A dose lowering technique was utilized adhering to the principles of ALARA. CT DOSE: 1747.17 mGy.cm FINDINGS: No pulmonary emboli are identified. There is no thoracic aortic dissection. Size of the heart is normal. There is no pericardial effusion. No enlarged axillary, mediastinal or hilar lymph nodes are present. There is no pneumothorax or pleural effusion. There are mild secretions within the airways. There is no consolidation to suggest pneumonia. Lingular opacity has improved since CT of April 19, 2024. A few small subpleural right middle lobe nodules are unchanged. These are likely benign. Mild bronchial wall thickening with mucus plugging within the lower lobes has improved since prior examination. The abdomen and pelvis CT will be reported separately. There is hepatic steatosis. IMPRESSION: 1. No pulmonary emboli identified. 2. No consolidation to suggest pneumonia. Interval improvement in lingular opacity since prior CT. 3. Mild bilateral lower lobe bronchial wall thickening and mucus plugging which has also improved. ACT 112: Negative or not required by law. Electronically signed by: Cali Blankenship M.D. 05/25/2024 11:00 AM Discharge Plan Visit Data Chief Complaint: Tachycardia Stated Complaint: TACHYCARIDA, LETHARGY ED Provider: Edwin Aleman Discharge Problem: VIRK (dyspnea on exertion), AA (alcohol abuse), Tobacco abuse, Abnormal LFTs, Duodenitis Patient Disposition: Being Evaluated by Hospitalist Forms Stand Alone Forms: My [facility] Prescriptions Prescriptions: No Action lorazepam 1 mg Tablet 0.5 - 1 mg PO TID PRN (Reason: Anxiety) cholecalciferol (vitamin D3) [Vitamin D3] 1,000 unit Capsule 1,000 units PO Q2D thiamine HCl (vitamin B1) 100 mg tablet 100 mg PO DAILY Qty: 30 0RF folic acid 1 mg tablet 1 mg PO DAILY Qty: 30 5RF magnesium 250 mg Tablet 125 mg PO DAILY albuterol sulfate 90 mcg/actuation Hfa Aerosol Inhaler 2 puff INHALATION Q4H PRN (Reason: Shortness Of Breath Or Wheezing) Trelegy Ellipta 100-62.5-25 mcg blister with device 1 inh INHALATION DAILY gabapentin 600 mg tablet 600 mg PO BID atorvastatin 20 mg tablet 20 mg PO QAM pantoprazole 20 mg tablet,delayed release (DR/EC) 20 mg PO QAM calcium carbonate 500 mg calcium (1,250 mg) Tablet 500 mg PO HS duloxetine 30 mg capsule,delayed release(DR/EC) 30 mg PO QAM metronidazole [Metrogel] 1 % Gel 1 applic TOPICAL DAILY PRN (Reason: Perioral Dermatitis) multivitamin tablet 1 tab PO HS levalbuterol HCl 1.25 mg/3 mL Solution For Nebulization 1.25 mg NEB Q6R PRN (Reason: Shortness Of Breath Or Wheezing) Qty: 50 0RF Referrals Referrals: Ct Morales DO [Primary Care Provider] -
--- NOTE | 2024-05-25 09:20 | XRay Report ---
XR chest 1V portable CLINICAL HISTORY: Dysrhythmia. COMPARISON STUDY: Chest CT April 19, 2024. Chest radiograph May 01, 2024. FINDINGS: Old right humeral neck fracture is incidentally noted. Lung volumes are normal. Minimal lef t basilar opacity is unchanged. There is no pneumothorax or pleural effusion. Cardiac size is normal. Mediastinal contours are normal. There is no evidence for pulmonary edema. IMPRESSION: No change in appearance of the chest. Minimal left basilar opacity, similar to prior exam . This favors a chronic infectious process when correlating with prior CT. ACT 112: Negative or not required by law. Electronically signed by: Cali Blankenship M.D. 05/25/2024 9:19 AM
[2024-05-25 10:04] LABS: iSTAT Creatinine 0.8 mg/dl (0.6-1.3); iSTAT Hemoglobin 13.6 g/dl (12.0-16.0); iSTAT Potassium 3.6 mmol/L (3.3-5.0)
[2024-05-25 10:05] LABS: Albumin Globulin Ratio 1.2 (0.9-2); Albumin Level 3.7 gm/dl (3.4-5.0); BUN Creatinine Ratio 12.7 (10-20); Bilirubin,Total 3.6 mg/dl (0.2-1.0); Calcium 8.7 mg/dl (8.6-10.3); Magnesium 1.3 mg/dl (1.7-2.4); Potassium 3.6 mmol/L (3.5-5.1); Total Protein 6.7 gm/dl (6.0-8.3)
[2024-05-25 10:11] LABS: Troponin I High Sensitivity 20.6 pg/ml (0-14)
[2024-05-25 10:14] LABS: INR 1.2 (0.9-1.1); Partial Thromboplastin Ratio 0.9; Partial Thromboplastin Time 25 Seconds (21-31); Prothrombin Time 12.4 Seconds (9.0-12.0)
[2024-05-25 10:20] LABS: Thyroid Stimulating Hormone 5.442 uIu/ml (0.300-4.500)
[2024-05-25 10:34] LABS: D Dimer 1580 ug/L FEU (0-500)
[2024-05-25 10:35] LABS: Basophils # (auto) 0.02 K/uL (0.00-0.20); Basophils % (auto) 0.5 %; Eosinophils # (auto) 0.05 K/uL (0.00-0.50); Eosinophils % (auto) 1.3 %; Hematocrit (blood only) 39.2 % (37.0-47.0); Hemoglobin 13.3 g/dl (12.0-16.0); Immature Granulocytes # (auto) 0.02 K/uL (0.01-0.20); Immature Granulocytes % (auto) 0.5 %; Lymphocytes % (auto) 26.1 %; Mean Corpuscular Hgb Conc 33.9 g/dL (32.0-36.0); Mean Corpuscular Volume 103.2 fL (80.0-100.0); Mean Platelet Volume 12.1 fL (9.4-12.4); Monocytes # (auto) 0.34 K/uL (0.11-0.59); Monocytes % (auto) 8.9 %; Neutrophils % (auto) 62.7 %; Platelet Count 86 K/uL (130-400); RDW Coefficient of Variation 12.9 % (11.5-14.5); White Blood Count 3.83 K/ul (4.8-10.8)
[2024-05-25 10:49] LABS: Adenovirus PCR Not Detected (NotDetected); Bordetella parapertussis PCR Not Detected (NotDetected); Bordetella pertussis PCR Not Detected (NotDetected); Chlamydia pneumoniae PCR Not Detected (NotDetected); Coronavirus 229E PCR Not Detected (NotDetected); Coronavirus CoV-2 (COVID19)PCR Not Detected (NotDetected); Coronavirus HKU1 PCR Not Detected (NotDetected); Coronavirus NL63 PCR Not Detected (NotDetected); Coronavirus OC43PCR Not Detected (NotDetected); Human Metapneumovirus PCR Not Detected (NotDetected); Influenza A PCR Not Detected (NotDetected); Influenza B PCR Not Detected (NotDetected); Mycoplasma pneumoniae PCR Not Detected (NotDetected); Parainfluenza Virus 1 PCR Not Detected (NotDetected); Parainfluenza Virus 2 PCR Not Detected (NotDetected); Parainfluenza Virus 3 PCR Not Detected (NotDetected); Parainfluenza Virus 4 PCR Not Detected (NotDetected); Respiratory Syncytial VirusPCR Not Detected (NotDetected); Rhinovirus/Enterovirus PCR Not Detected (NotDetected)
[2024-05-25] MEDS: OPTIRAY 320 125ml IV ONE (10:50)
[2024-05-25 10:56] LABS: Bilirubin Direct 1.4 mg/dl (0-0.2)
[2024-05-25 10:57] LABS: T4 Free Thyroxine 1.16 ng/dl (0.61-1.60)
--- NOTE | 2024-05-25 11:01 | CT Scan Report ---
CT ANGIOGRAPHY OF THE CHEST, PULMONARY EMBOLUS PROTOCOL CLINICAL HISTORY: Shortness of breath. Tachycardia. COMPARISON STUDY: Chest CT April 19, 2024. Chest radiograph performed earlier today. TECHNIQUE: Following IV administration of 120 mL of Optiray, helical axial images of the chest were o btained utilizing the pulmonary embolus protocol. Maximal intensity projections and sagittal and cor onal reformats were viewed on an independent 3D workstation. IV contrast was administered without co mplication. Automated exposure control was utilized for the study. A dose lowering technique was ut ilized adhering to the principles of ALARA. CT DOSE: 1747.17 mGy.cm FINDINGS: No pulmonary emboli are identified. There is no thoracic aortic dissection. Size of the he art is normal. There is no pericardial effusion. No enlarged axillary, mediastinal or hilar lymph nod es are present. There is no pneumothorax or pleural effusion. There are mild secretions within the ai rways. There is no consolidation to suggest pneumonia. Lingular opacity has improved since CT of Octo 2023. A few small subpleural right middle lobe nodules are unchanged. These are likely benign. Mild bronchial wall thickening with mucus plugging within the lower lobes has improved since prior e xamination. The abdomen and pelvis CT will be reported separately. There is hepatic steatosis. IMPRESSION: 1. No pulmonary emboli identified. 2. No consolidation to suggest pneumonia. Interval improvement in lingular opacity since prior CT. 3. Mild bilateral lower lobe bronchial wall thickening and mucus plugging which has also improved. ACT 112: Negative or not required by law. Electronically signed by: Cali Blankenship M.D. 05/25/2024 11:00 AM
--- NOTE | 2024-05-25 11:12 | CT Scan Report ---
CT OF THE ABDOMEN AND PELVIS WITH CONTRAST CLINICAL HISTORY: Abnormal liver function tests COMPARISON STUDY: CT of the abdomen and pelvis January 24, 2020. MRI of the abdomen January 26, 2020. Righ t upper cord ultrasound September 02, 2022. TECHNIQUE: Following IV administration of 120 mL of Optiray, axial images of the abdomen and pelvis w ere obtained from the lung bases to the proximal femurs. Images were reviewed in the axial, sagittal, and coronal planes. IV contrast was administered without complication. Automated exposure control w as utilized for the study. A dose lowering technique was utilized adhering to the principles of ALASimran Kim. FINDINGS: No pneumatosis, free air or portal venous gas is present. There is severe hepatic steatosis . The right hepatic lobe is enlarged and the left hepatic lobe is atrophied. The left portal vein is not well visualized. The main and right portal veins are patent. The right hepatic lobe abnormality o n prior CT and MRI is not visualized. The spleen, adrenal glands, left kidney and pancreas are unrema rkable. A water attenuation 4 cm right lower pole lesion represents a cyst. There is no biliary or pa ncreatic ductal dilatation. There is mild wall thickening of the second portion the duodenum with mil d adjacent stranding. There is no extraluminal gas. There is no fluid collection. Colonic diverticulo sis is present. There is no evidence for a bowel obstruction status post sigmoid resection. A cystic 4.4 cm left adnexal lesion has mildly decreased in size since CT of January 24, 2020. This remains indet erminate. There is no lymphadenopathy. IMPRESSION: 1. Severe hepatic steatosis. Enlargement of the right hepatic lobe and left hepatic lobe atrophy sugg ests cirrhosis. 2. Mild wall thickening of the second portion of the duodenum with adjacent stranding. This may refle ct duodenitis. Acute pancreatitis is within the differential although considered less likely. 3. No bowel obstruction. Colonic diverticulosis. No evidence for acute diverticulitis. 4. 4.4 cm cystic left adnexal lesion which has mildly decreased in size since CT of January 24, 2020. Th is remains indeterminate. ACT 112: Negative or not required by law. Electronically signed by: Cali Blankenship M.D. 05/25/2024 11:11 AM
[2024-05-25] MEDS: MAGNESIUM SULFATE / D5W 1 GM/100 ML BAG IV SCH ×2 (11:26→14:32)
[2024-05-25] MEDS: SODIUM CHLORIDE 0.9% 1,000 ML IV ONE (11:26)
[2024-05-25] MEDS: PANTOprazole 40 MG/10 ML SYR IV ONE (12:25)
--- NOTE | 2024-05-25 12:27 | Communication Note ---
Date of Service: May 25, 2024 68-year-old lady with PMH of grade 1 diastolic dysfunction with EF of 55% [per echo from 02/28/2022], COPD, HLD, prediabetes, multiple lung nodules, HTN, alcohol abuse disorder, current alcoholic, alcoholic cirrhosis of liver without ascites, biliary disease, diverticulitis, GERD without esophagitis, enterocolic fistula, left admission max, depression/anxiety and current tobacco use disorder presented to the ED for evaluation of shortness of breath with exertion/palpitation and getting progressively weak. Per patient, she reports having palpitation and lethargy for couple of weeks, also notes shortness of breath with activity, denies sore throat/increase in her baseline cough or change in sputum volume/color. She denies chest pain/belly p ain/pain or burning while passing urine/nausea/vomiting. Bowel movement has been usual for her. Appetite has been low since last few weeks per patient. Patient reports smoking 5 cigarettes a day currently, has been smoking since age 14. Patient reports drinking 3 to 3 glasses of vodka daily, last drink yesterday. Patient was extensively counseled regarding alcohol cessation. Patient denies any recreational drug use. Full code. Labs and imagings reviewed. WBC 3.83K, hemoglobin about baseline, platelets 86K. D-dimer 1580. Magnesium 1.3, LFT elevated, troponin 20.6, TSH 5.4 with normal FT4. CXR with no acute finding. Abnormal CTAP but about her baseline. Severe hepatic steatosis and cirrhosis noted. 4.4 cm cystic left adnexal lesion noted. CTA chest with no PE, no consolidation to suggest pneumonia. Palpitation/shortness of breath with exertion/increasing lethargy: COPD seems to be stable with no increase in cough or sputum production but patient does have shortness of breath with activity. Will continue with nebulization. Will get BNP and echo to rule out alcoholic cardiomyopathy. Will get CPK level. PT/OT. Urine drug screen. Send Anaplasma and Lyme screen. Transaminitis: GI evaled, not a candidate for steroid. f/u hepatology on dc. Alcohol use disorder: CECILIA S protocol, gabapentin taper, replete electrolytes. Bicytopenia: Leukopenia and thrombocytopenia noted. Will hold on chemo DVT prophylaxis for now until the trend in platelets is established. Expect to improve with alcohol cessation. Continue to monitor. Elevated D-dimer: CTA chest negative for PE. Elevated TSH: Normal FT4, no need to initiate levothyroxine. Repeat thyroid function test in about 6 weeks time. On exam: GENERAL: Alert and oriented x3. NAD, on 3L NC O2. Appears ill/frail/weak. HEENT: No pallor, + icterus. Pupils equal, round and reactive to light. Oral mucosa moist. NECK: No JVD, no neck masses. HEART: S1 and S2 heard. Regular rate and rhythm. tachycardia, rates in 100s. No murmur, no gallop. RESPIRATORY SYSTEM: Normal AP diameter. No accessory muscle use. No wheezing, no crackles. faint rhonchi bb. ABDOMEN: Soft, bowel sounds present, nontender, no distention. CENTRAL NERVOUS SYSTEM: No facial droop. Speech is clear. Obeys simple commands. Moves extremities. EXTREMITIES: No edema, no erythema seen. No swelling or tenderness noted on exam. I have seen and examined the patient and have discussed the case with the provider above. I agree with the assessment and plan as stated in HnP. Time spent: 35 min.
[2024-05-25] MEDS: THIAMINE HCL 200 MG in SODIUM CHLORIDE 0.9% 50 ML IV STA (12:28)
[2024-05-25] MEDS: POTASSIUM CHLORIDE CRTAB 20 MEQ TABCR PO STA (12:51)
[2024-05-25] MEDS ORDERED: GABAPENTIN 800MG ALCOHOL WITHDRAWAL LOAD PO STA (13:19)
[2024-05-25] MEDS ORDERED: LORazepam 2 MG/1 ML VIAL IV PRN ×3 (13:19)
[2024-05-25] MEDS ORDERED: Ativan IV Alcohol Withdrawal--Active Protocol IV PRN (13:19)
[2024-05-25 13:23] LABS: Appearance Urine Clear (Clear); Bacteria Urine Automated None Seen (None Seen); Bilirubin Urine Negative (Negative); Blood Urine Negative (Negative); Cast Urine Automated 0-2 /lpf (0-2); Color Urine Yellow; Epithelial Cell Urine Auto 0-2 /hpf (0-2); Glucose Urine UA Negative (Negative); Ketones Urine Negative (Negative); Leukocyte Esterase Urine Trace (Negative); Nitrite Urine Negative (Negative); Protein Urine Negative (Negative); RBC Urine Automated 0-2 /hpf (0-2); Specific Gravity Urine > 1.045 (1.000-1.030); Urobilinogen Urine Negative (Negative); WBC Urine Automated 0-5 /hpf (0-5); pH Urine 7.5 (4.5-7.5)
[2024-05-25 13:36] LABS: Troponin I High Sensitivity 20.3 pg/ml (0-14)
[2024-05-25] MEDS: GABAPENTIN 400 MG CAP PO ONE (13:36)
[2024-05-25 14:01] LABS: Hep B Surface Ag with confirm Negative (Negative)
[2024-05-25 14:06] LABS: Hep C Ab Rflx HepCQuant RNA Negative (Negative)
[2024-05-25 14:17] LABS: Amphetamines+Metham, Urine Neg (Neg); Barbiturates, Urine Neg (Neg); Benzodiazepine, Urine Neg (Neg); Cocaine, Urine Neg (Neg); Fentanyl, Urine Neg (Neg); MDMA (Ecstacy), Urine Neg (Neg); Marijuana, Urine Neg (Neg); Methadone, Urine Neg (Neg); Opiate, Urine Neg (Neg); Phencyclidine, Urine Neg (Neg)
[2024-05-25] MEDS: NICOTINE 14 MG/24 HR PATCH TD SCH (14:27)
[2024-05-25] MEDS ORDERED: LEVALBUTEROL 1.25 MG/3 ML NEB NEB PRN (15:15)
[2024-05-25] MEDS ORDERED: LORazepam 1 MG TAB PO PRN (15:15)
[2024-05-25] MEDS ORDERED: ALBUTEROL HFA 8 GM INHALER INH PRN (15:15)
--- NOTE | 2024-05-25 15:15 | Gastrointestinal Consultation ---
Date of Consultation May 25, 2024 Assessment & Plan (1) Cirrhosis, alcoholic: Known active alcohol use, cirrhosis complicated by acute alcoholic hepatitis. Discriminant factor 5.4 not a candidate for steroids. No signs of liver related infections or bleeding no signs of encephalopathy. Agree with prophylaxis for alcohol withdrawal. Continue folate and thiamine. Continue to monitor liver enzymes and signs of early symptoms. Consider evaluation for alcohol rehab therapy and treatment if patient is motivated. History of Present Illness Reason for Consultation: Alcoholic hepatitis Attending Physician: Keyona Lucia MD History of Present Illness Patient is a 68y/o F with multiple medical problems. No significant or COPD, multiple lung nodules, HTN, alcohol abuse, alcoholic cirrhosis of liver without ascites. She has had a past history of diverticulitis status post surgical resection, a known adnexal mass which is being monitored and depression/anxiety and tobacco use disorder. She had a recent hospitalization in April for COPD exacerbation complicated by pneumonia. She now presents for further evaluation of weakness shortness of breath and palpitations. She is an active drinker she denies any significant GI bleeding no melena no hematemesis no nausea no vomiting no abdominal pain no abdominal distention or lower extremity edema. He denies any confusion. CT scan on admission shows a large fatty liver with cirrhotic changes. No discrete masses noted. Allergies Allergy/AdvReac Type Severity Reaction Status Date / Time No Known Allergies Allergy Verified 04/19/24 19:48 Home Medications Medication Instructions Recorded Confirmed Type cholecalciferol (vitamin D3) 25 1,000 units PO Q2D 04/02/18 05/25/24 History mcg (1,000 unit) capsule (Vitamin D3) lorazepam 1 mg tablet 0.5 - 1 mg PO TID PRN Anxiety 04/02/18 05/25/24 History folic acid 1 mg tablet 1 mg PO DAILY #30 tabs 04/13/18 05/25/24 Rx thiamine HCl (vitamin B1) 100 mg 100 mg PO DAILY #30 tabs 04/13/18 05/25/24 Rx tablet albuterol sulfate 90 mcg/actuation 2 puff inhalation Q4H PRN 01/24/20 05/25/24 History aerosol inhaler Shortness Of Breath Or Wheezing magnesium 250 mg tablet 125 mg PO DAILY 01/24/20 05/25/24 History fluticasone fur. 100 mcg-umeclid 1 inh inhalation DAILY 08/30/22 05/25/24 History 62.5 mcg-vilant 25 mcg inhalat.powder (Trelegy Ellipta) atorvastatin 20 mg tablet 20 mg PO QAM 04/19/24 05/25/24 History calcium carbonate 500 mg PO HS 04/19/24 05/25/24 History duloxetine 30 mg capsule,delayed 30 mg PO QAM 04/19/24 05/25/24 History release gabapentin 600 mg tablet 600 mg PO BID 04/19/24 05/25/24 History metronidazole 1 % topical gel 1 applic topical DAILY PRN 04/19/24 05/25/24 History (Metrogel) Perioral Dermatitis multivitamin 1 tab PO HS 04/19/24 05/25/24 History pantoprazole 20 mg tablet,delayed 20 mg PO QAM 04/19/24 05/25/24 History release levalbuterol HCl 1.25 mg/3 mL 1.25 mg (3 mL) NEB Q6R PRN 04/21/24 05/25/24 Rx solution for nebulization Shortness Of Breath Or Wheezing #50 mL Patient History Medical History (Updated 05/25/24 @ 15:15 by Jon Barreto MD) Hx of ectopic Transaminitis Surgical History Hx of eye surgery Family History Other No significant family history Social History Smoking Status: Current every day smoker Tobacco Type: Cigarettes Cigarettes Per Day: 3; Second Hand Exposure: Yes; Do You Dip or Chew Tobacco: No; Hx Alcohol Use: Yes Alcohol type: hard liquor Hx Substance Use: No Preferred Language: Belarusian Communication Ability: Effective Ux Interaction Designer Required: No Beliefs That Will Affect Care: None marital status: Single Current Living Situation: Alone Other Information That Helps Us Care for You: No Feels Safe at Home: Yes Safety Concerns: Feels Safe At This Time Assistive Devices: None Review of Systems Review of Systems: No fever No chills VIRK no CP No Abd pain Physical Exam Physical Exam: No acute distress Respiratory rate regular chest clear but decreased breath sounds Cardiac rhythm regular Abdomen soft nontender large liver extending to the lower abdomen. No signs of ascites no rebound or guarding No asterixis no lower extremity edema Results & Data Vital Signs (Past 12 Hours) Vital Signs Temp Pulse Pulse Resp BP BP Pulse Ox 05/25/24 13:23 36.8 C 105 H 20 147/81 H 96 05/25/24 13:05 115 H 20 159/81 H 95 05/25/24 11:00 105 H 17 161/93 H 97 05/25/24 10:39 103 H 18 145/82 H 98 05/25/24 10:06 105 H 16 97 05/25/24 09:41 05/25/24 09:41 05/25/24 09:36 110 H 20 126/89 97 05/25/24 09:34 37.0 C 115 H 22 142/89 H 98 05/25/24 09:34 110 H O2 Del Method O2 Flow Rate 05/25/24 13:23 Nasal Cannula 3 05/25/24 13:05 Nasal Cannula 3 05/25/24 11:00 05/25/24 10:39 05/25/24 10:06 05/25/24 09:41 Nasal Cannula 3 05/25/24 09:41 Nasal Cannula 3 05/25/24 09:36 05/25/24 09:34 Nasal Cannula 3 05/25/24 09:34 Laboratory Results Laboratory Results - last 48 hr 05/25/24 05/25/24 05/25/24 09:20 09:27 09:52 WBC 3.83 L RBC 3.80 L Hgb 13.3 POC Hgb 13.6 Hct 39.2 POC Hct 40 MCV 103.2 H MCH 35.0 H MCHC 33.9 RDW Std Deviation 49.0 H RDW Coeff of Vale 12.9 Plt Count 86 L MPV 12.1 Immature Gran % (Auto) 0.5 Neut % (Auto) 62.7 Lymph % (Auto) 26.1 Lucas % (Auto) 8.9 Eos % (Auto) 1.3 Baso % (Auto) 0.5 Neut # (Auto) 2.40 Lymph # (Auto) 1.00 L Lucas # (Auto) 0.34 Eos # (Auto) 0.05 Baso # (Auto) 0.02 Immature Gran # (Auto) 0.02 PT 12.4 H INR 1.2 H APTT 25 PTT Ratio 0.9 D-Dimer 1580 H* POC Sodium 135 Sodium 135 L POC Potassium 3.6 Potassium 3.6 POC Chloride 95 L Chloride 93 L Carbon Dioxide 32 POC Total CO2 30 Anion Gap 10 POC Anion Gap 15.0 L POC BUN 9 BUN 10 Creatinine 0.79 POC Creatinine 0.8 Est Cr Clr Drug Dosing 67.0 eGFR 80.42 BUN/Creatinine Ratio 12.7 Glucose 152 H POC Glucose (other) 159 H Calcium 8.7 POC Ioniz Calcium Cristy 1.00 L Magnesium 1.3 L Total Bilirubin 3.6 H Direct Bilirubin 1.4 H AST 381 H ALT 163 H Alkaline Phosphatase 383 H Total Creatine Kinase 70 Troponin I High Sens 20.6 H B-Natriuretic Peptide Total Protein 6.7 Albumin 3.7 Globulin 3.0 Albumin/Globulin Ratio 1.2 Lipase TSH 5.442 H Free T4 1.16 Urine Color Urine Appearance Urine pH Ur Specific [place] Urine Protein Urine Glucose (UA) Urine Ketones Urine Blood Urine Nitrite Urine Bilirubin Urine Urobilinogen Ur Leukocyte Esterase Urine WBC (Auto) Urine RBC (Auto) U Hyaline Cast (Auto) U Epithel Cells (Auto) Urine Bacteria (Auto) Urine Opiates Screen Ur Methadone, Qual Urine Fentanyl Screen Urine Barbiturates Ur Phencyclidine (PCP) U Amphetamin/Meth Scrn MDMA (Ecstasy) Screen U Benzodiazepines Scrn Ur Cocaine Metabolite U Marijuana (THC) Screen Ethyl Alcohol mg/dL Adenovirus (PCR) Not Detected Anaplasma Smear Babesia Smear B. pertussis DNA (PCR) Not Detected B.parapertussis DNA PCR Not Detected Lyme Disease Screen C. pneumoniae DNA (PCR) Not Detected Coronavirus OC43 (PCR) Not Detected Coronavirus HKU1 (PCR) Not Detected Coronavirus 229E (PCR) Not Detected SARS-CoV-2 (PCR) Not Detected Coronavirus NL63 (PCR) Not Detected Hep Bs Antigen Hepatitis C Antibody Human Metapneumovir PCR Not Detected Influenza Type A (PCR) Not Detected Influenza Type B (PCR) Not Detected M. pneumoniae (PCR) Not Detected Parainfluenza 1 (PCR) Not Detected Parainfluenza 2 (PCR) Not Detected Parainfluenza 3 (PCR) Not Detected Parainfluenza 4 (PCR) Not Detected RSV (PCR) Not Detected Entero/Rhino (PCR) Not Detected 05/25/24 05/25/24 12:27 12:58 WBC RBC Hgb POC Hgb Hct POC Hct MCV MCH MCHC RDW Std Deviation RDW Coeff of Vale Plt Count MPV Immature Gran % (Auto) Neut % (Auto) Lymph % (Auto) Lucas % (Auto) Eos % (Auto) Baso % (Auto) Neut # (Auto) Lymph # (Auto) Lucas # (Auto) Eos # (Auto) Baso # (Auto) Immature Gran # (Auto) PT INR APTT PTT Ratio D-Dimer POC Sodium Sodium POC Potassium Potassium POC Chloride Chloride Carbon Dioxide POC Total CO2 Anion Gap POC Anion Gap POC BUN BUN Creatinine POC Creatinine Est Cr Clr Drug Dosing eGFR BUN/Creatinine Ratio Glucose POC Glucose (other) Calcium POC Ioniz Calcium Cristy Magnesium Total Bilirubin Direct Bilirubin AST ALT Alkaline Phosphatase Total Creatine Kinase Troponin I High Sens 20.3 H B-Natriuretic Peptide 49 Total Protein Albumin Globulin Albumin/Globulin Ratio Lipase 155 H TSH Free T4 Urine Color Yellow Urine Appearance Clear Urine pH 7.5 Ur Specific [place] > 1.045 H Urine Protein Negative Urine Glucose (UA) Negative Urine Ketones Negative Urine Blood Negative Urine Nitrite Negative Urine Bilirubin Negative Urine Urobilinogen Negative Ur Leukocyte Esterase Trace H Urine WBC (Auto) 0-5 Urine RBC (Auto) 0-2 U Hyaline Cast (Auto) 0-2 U Epithel Cells (Auto) 0-2 Urine Bacteria (Auto) None Seen Urine Opiates Screen Neg Ur Methadone, Qual Neg Urine Fentanyl Screen Neg Urine Barbiturates Neg Ur Phencyclidine (PCP) Neg U Amphetamin/Meth Scrn Neg MDMA (Ecstasy) Screen Neg U Benzodiazepines Scrn Neg Ur Cocaine Metabolite Neg U Marijuana (THC) Screen Neg Ethyl Alcohol mg/dL < 10.0 Adenovirus (PCR) Anaplasma Smear See Comment Babesia Smear See Comment B. pertussis DNA (PCR) B.parapertussis DNA PCR Lyme Disease Screen Negative C. pneumoniae DNA (PCR) Coronavirus OC43 (PCR) Coronavirus HKU1 (PCR) Coronavirus 229E (PCR) SARS-CoV-2 (PCR) Coronavirus NL63 (PCR) Hep Bs Antigen Negative Hepatitis C Antibody Negative Human Metapneumovir PCR Influenza Type A (PCR) Influenza Type B (PCR) M. pneumoniae (PCR) Parainfluenza 1 (PCR) Parainfluenza 2 (PCR) Parainfluenza 3 (PCR) Parainfluenza 4 (PCR) RSV (PCR) Entero/Rhino (PCR) Diagnostic Findings Chest X-Ray 05/25/24 09:02 XR chest 1V portable CLINICAL HISTORY: Dysrhythmia. COMPARISON STUDY: Chest CT April 19, 2024. Chest radiograph May 01, 2024. FINDINGS: Old right humeral neck fracture is incidentally noted. Lung volumes are normal. Minimal left basilar opacity is unchanged. There is no pneumothorax or pleural effusion. Cardiac size is normal. Mediastinal contours are normal. There is no evidence for pulmonary edema. IMPRESSION: No change in appearance of the chest. Minimal left basilar opacity, similar to prior exam. This favors a chronic infectious process when correlating with prior CT. ACT 112: Negative or not required by law. Electronically signed by: Cali Blankenship M.D. 05/25/2024 9:19 AM Abdomen/Pelvis CT 05/25/24 10:34 CT OF THE ABDOMEN AND PELVIS WITH CONTRAST CLINICAL HISTORY: Abnormal liver function tests COMPARISON STUDY: CT of the abdomen and pelvis January 24, 2020. MRI of the abdomen January 26, 2020. Right upper cord ultrasound September 02, 2022. TECHNIQUE: Following IV administration of 120 mL of Optiray, axial images of the abdomen and pelvis were obtained from the lung bases to the proximal femurs. Images were reviewed in the axial, sagittal, and coronal planes. IV contrast was administered without complication. Automated exposure control was utilized for the study. A dose lowering technique was utilized adhering to the principles of ALARA. FINDINGS: No pneumatosis, free air or portal venous gas is present. There is severe hepatic steatosis. The right hepatic lobe is enlarged and the left hepatic lobe is atrophied. The left portal vein is not well visualized. The main and right portal veins are patent. The right hepatic lobe abnormality on prior CT and MRI is not visualized. The spleen, adrenal glands, left kidney and pancreas are unremarkable. A water attenuation 4 cm right lower pole lesion represents a cyst. There is no biliary or pancreatic ductal dilatation. There is mild wall thickening of the second portion the duodenum with mild adjacent stranding. There is no extraluminal gas. There is no fluid collection. Colonic diverticulosis is present. There is no evidence for a bowel obstruction status post sigmoid resection. A cystic 4.4 cm left adnexal lesion has mildly decreased in size since CT of January 24, 2020. This remains indeterminate. There is no lymphadenopathy. IMPRESSION: 1. Severe hepatic steatosis. Enlargement of the right hepatic lobe and left hepatic lobe atrophy suggests cirrhosis. 2. Mild wall thickening of the second portion of the duodenum with adjacent stranding. This may reflect duodenitis. Acute pancreatitis is within the differ ential although considered less likely. 3. No bowel obstruction. Colonic diverticulosis. No evidence for acute diverticulitis. 4. 4.4 cm cystic left adnexal lesion which has mildly decreased in size since CT of January 24, 2020. This remains indeterminate. ACT 112: Negative or not required by law. Electronically signed by: Cali Blankenship M.D. 05/25/2024 11:11 AM Chest CTA 05/25/24 10:34 CT ANGIOGRAPHY OF THE CHEST, PULMONARY EMBOLUS PROTOCOL CLINICAL HISTORY: Shortness of breath. Tachycardia. COMPARISON STUDY: Chest CT April 19, 2024. Chest radiograph performed earlier today. TECHNIQUE: Following IV administration of 120 mL of Optiray, helical axial images of the chest were obtained utilizing the pulmonary embolus protocol. Maximal intensity projections and sagittal and coronal reformats were viewed on an independent 3D workstation. IV contrast was administered without complication. Automated exposure control was utilized for the study. A dose lowering technique was utilized adhering to the principles of ALARA. CT DOSE: 1747.17 mGy.cm FINDINGS: No pulmonary emboli are identified. There is no thoracic aortic dissection. Size of the heart is normal. There is no pericardial effusion. No enlarged axillary, mediastinal or hilar lymph nodes are present. There is no pneumothorax or pleural effusion. There are mild secretions within the airways. There is no consolidation to suggest pneumonia. Lingular opacity has improved since CT of April 19, 2024. A few small subpleural right middle lobe nodules are unchanged. These are likely benign. Mild bronchial wall thickening with mucus plugging within the lower lobes has improved since prior examination. The abdomen and pelvis CT will be reported separately. There is hepatic steatosis. IMPRESSION: 1. No pulmonary emboli identified. 2. No consolidation to suggest pneumonia. Interval improvement in lingular opacity since prior CT. 3. Mild bilateral lower lobe bronchial wall thickening and mucus plugging which has also improved. ACT 112: Negative or not required by law. Electronically signed by: Cali Blankenship M.D. 05/25/2024 11:00 AM PG Care Time/CCT Total # of Minutes Spent Total Time Spent with Patient: Total time spent is greater than 50% in coordination of care (as documented) at patient's floor/unit and/or counseling patient: Coding Level of Care Code 21570 IN/OBS CONSULT LVL 4,60M Diagnoses Cirrhosis, alcoholic K70.30
--- NOTE | 2024-05-25 15:30 | History & Physical Report ---
Date of Service May 25, 2024 Assessment & Plan (1) Cirrhosis, alcoholic: (2) Abnormal LFTs: (3) COPD (chronic obstructive pulmonary disease): (4) Pneumonia: (5) Hypertension: (6) Hyperlipidemia: (7) Anxiety: (8) Depression: (9) Tobacco abuse: Plan Assessment and plan: Palpitations Shortness of breath with exertion Hx COPD EKG unremarkable, check echo, could be secondary to shortness of breath D-dimer elevated, chest CTA unremarkable, chest imaging fairly unchanged from previous Continue nebs as needed. BMP unremarkable, Anaplasma/Lyme pending Hx alcohol abuse Alcoholic cirrhosis Transaminitis/acute alcoholic hepatitis Alcohol withdrawal protocol ordered, gabapentin taper GI consulted, not a candidate for steroids, daily CMP Hold atorvastatin with elevated LFTs, replete electrolytes Hx anxiety: -Continue Cymbalta Elevated TSH noted, repeat blood work in 6 weeks outpatient A total of 60 minutes was spent on chart review/reviewing diagnostic imaging/facilitating plan of care/discussion with consultants Full code DVT prophylaxis: SCDs, avoid AC with thrombocytopenia Admission and Anticipated Discharge Date Admission Date: May 25, 2024 History of Present Illness Chief Complaint: Shortness of breath Primary Care Provider: Ct Morales DO The patient is a 68-year-old female with a past medical history of diastolic dysfunctionEF of 55%, COPD, HLD, multiple lung nodules, HTN, alcohol abuse, alcoholic cirrhosis, current tobacco use, GERD who presents to the ED on 05/25/2024 with complaints of shortness of breath and palpitations with exertion. She also reports feeling progressively weaker and needing more help at home. The patient reports ongoing heart palpitations with movement and some increased weakness over the past few weeks. The patient still admits to currently smoking 5 cigarettes a day and has 3 glasses of vodka on a daily basis. Her last drink was yesterday. On exam, the patient's shortness of breath is mildly improved. She denies any chest pain/fever/nausea/vomiting/diarrhea. Patient was recently admitted on 04/20/2023 with similar symptoms. At this time, patient also reported increasing shortness of breath and a productive cough. At this time her chest CT was negative. But there was a groundglass consolidation and peribronchial thickening that could indicate infectious/inflammatory bro nchitis/pneumonitis. At this time, the patient received nebs Rocephin Zithromax and prednisone. At this time, after receiving treatment she was clinically improved. She was advised to quit smoking and discharged back home on 3 L On arrival to the ER her labs are remarkable for WBC 3, platelets 86, D-dimer 1580, INR 1.2, anion gap 15, glucose 152, mag 1.3, total bilirubin 3.6, AST 381, ALT 163 alk phos 383 Chest x-ray was negative for any changes A/P CT showed possible duodenitis and cirrhosis Chest CTA was negative for any PE or consolidations and showed improvement from recent hospitalization The patient be admitted for further management and workup of heart palpitations Allergies Allergy/AdvReac Type Severity Reaction Status Date / Time No Known Allergies Allergy Verified 04/19/24 19:48 Home Medications Medication Instructions Recorded Confirmed Type cholecalciferol (vitamin D3) 25 1,000 units PO Q2D 04/02/18 05/25/24 History mcg (1,000 unit) capsule (Vitamin D3) lorazepam 1 mg tablet 0.5 - 1 mg PO TID PRN Anxiety 04/02/18 05/25/24 History folic acid 1 mg tablet 1 mg PO DAILY #30 tabs 04/13/18 05/25/24 Rx thiamine HCl (vitamin B1) 100 mg 100 mg PO DAILY #30 tabs 04/13/18 05/25/24 Rx tablet albuterol sulfate 90 mcg/actuation 2 puff inhalation Q4H PRN 01/24/20 05/25/24 History aerosol inhaler Shortness Of Breath Or Wheezing magnesium 250 mg tablet 125 mg PO DAILY 01/24/20 05/25/24 History fluticasone fur. 100 mcg-umeclid 1 inh inhalation DAILY 08/30/22 05/25/24 History 62.5 mcg-vilant 25 mcg inhalat.powder (Trelegy Ellipta) atorvastatin 20 mg tablet 20 mg PO QAM 04/19/24 05/25/24 History calcium carbonate 500 mg PO HS 04/19/24 05/25/24 History duloxetine 30 mg capsule,delayed 30 mg PO QAM 04/19/24 05/25/24 History release gabapentin 600 mg tablet 600 mg PO BID 04/19/24 05/25/24 History metronidazole 1 % topical gel 1 applic topical DAILY PRN 04/19/24 05/25/24 History (Metrogel) Perioral Dermatitis multivitamin 1 tab PO HS 04/19/24 05/25/24 History pantoprazole 20 mg tablet,delayed 20 mg PO QAM 04/19/24 05/25/24 History release levalbuterol HCl 1.25 mg/3 mL 1.25 mg (3 mL) NEB Q6R PRN 04/21/24 05/25/24 Rx solution for nebulization Shortness Of Breath Or Wheezing #50 mL Past Med/Surg History Problem List Cirrhosis, alcoholic Duodenitis (Acute) Abnormal LFTs (Acute) VIRK (dyspnea on exertion) (Acute) COPD (chronic obstructive pulmonary disease) Pneumonia (Acute) Hypoxia (Acute) Diverticulitis of large intestine with abscess (Acute) Lesion of liver (Acute) Alcohol dependence (Acute) Liver abscess Hematuria Hypoxia Tobacco use Liver lesion Diverticulitis (Acute) Elevated LFTs Rectal bleeding Elevated d-dimer Macrocytic anemia PVT (portal vein thrombosis) Fluid overload Alcohol use (Chronic) Encounter for pre-operative examination Hypomagnesemia (Acute) Hypophosphatemia (Acute) Common bile duct dilatation (Acute) Abdominal pain (Acute) DVT prophylaxis (Acute) Discharge planning issues (Acute) Alcohol withdrawal (Acute) Hyperbilirubinemia (Acute) UTI (urinary tract infection) Pulmonary embolism (Acute) Sepsis (Acute) Hypertension (Chronic) Hyperlipidemia (Chronic) Anxiety (Chronic) Diverticulosis of colon (Chronic) Hypokalemia (Acute) Respiratory failure, acute Depression (Chronic) Fatty liver (Chronic) AA (alcohol abuse) (Chronic) Tobacco abuse (Chronic) GERD (gastroesophageal reflux disease) (Chronic) H/O: (Chronic) History of oophorectomy, unilateral (Chronic) H/O wisdom tooth extraction (Chronic) Medical History (Updated 05/25/24 @ 15:15 by Jon Barreto MD) Hx of ectopic Transaminitis Surgical History Hx of eye surgery Family History Other No significant family history Social History Smoking Status: Current every day smoker Tobacco Type: Cigarettes Cigarettes Per Day: 3; Second Hand Exposure: Yes; Do You Dip or Chew Tobacco: No; Hx Alcohol Use: Yes Alcohol type: hard liquor Hx Substance Use: No Preferred Language: Malaysian Communication Ability: Effective Chronic Specialist Required: No Beliefs That Will Affect Care: None marital status: Single Current Living Situation: Alone Other Information That Helps Us Care for You: No Feels Safe at Home: Yes Safety Concerns: Feels Safe At This Time Assistive Devices: None Review of Systems Review of Systems: All systems reviewed & are unremarkable except as noted in HPI & below Physical Exam Constitutional: WD/WN, vitals as above Eyes: PERRL, conjunctivae normal, anicteric sclerae ENMT: external ear and nose normal, oropharynx normal Neck: trachea midline, no thyromegaly Respiratory: normal respiratory effort, lungs clear to auscultation (Intermittent wheezing bilaterally) Cardiovascular: RRR, no murmur, no edema Gastrointestinal (Abdomen): normal bowel sounds, soft, nontender, no hepatosplenomegaly Musculoskeletal: no cyanosis or clubbing, extremities motor strength 5/5 Skin: no rashes, warm and dry Neurologic: PERRL, EOMI, accommodation nl, no face palsy, no dysarthria Psychiatric: A+Ox3, euthymic affect Lymphatic: no cervical or axillary lymphadenopathy Results & Data Results & Data Vital Signs (Past 12 Hours) Vital Signs Temp Pulse Pulse Resp BP BP Pulse Ox 05/25/24 13:23 36.8 C 105 H 20 147/81 H 96 05/25/24 13:05 115 H 20 159/81 H 95 05/25/24 11:00 105 H 17 161/93 H 97 05/25/24 10:39 103 H 18 145/82 H 98 05/25/24 10:06 105 H 16 97 05/25/24 09:41 05/25/24 09:41 05/25/24 09:36 110 H 20 126/89 97 05/25/24 09:34 37.0 C 115 H 22 142/89 H 98 05/25/24 09:34 110 H O2 Del Method O2 Flow Rate 05/25/24 13:23 Nasal Cannula 3 05/25/24 13:05 Nasal Cannula 3 05/25/24 11:00 05/25/24 10:39 05/25/24 10:06 05/25/24 09:41 Nasal Cannula 3 05/25/24 09:41 Nasal Cannula 3 05/25/24 09:36 05/25/24 09:34 Nasal Cannula 3 05/25/24 09:34 Diagnostic Findings Laboratory Results WBC 3.83 K/ul (4.8-10.8) L 05/25/24 09:27 RBC 3.80 M/uL (4.20-5.40) L 05/25/24 09:27 Hgb 13.3 g/dl (12.0-16.0) 05/25/24 09:27 POC Hgb 13.6 g/dl (12.0-16.0) 05/25/24 09:52 Hct 39.2 % (37.0-47.0) 05/25/24 09: POC Hct 40 % (37-47) 05/25/24 09:52 MCV 103.2 fL (80.0-100.0) H 05/25/24 09:27 MCH 35.0 pg (25.0-34.0) H 05/25/24 09:27 MCHC 33.9 g/dL (32.0-36.0) 05/25/24 09:27 RDW Std Deviation 49.0 fL (36.4-46.3) H 05/25/24 09:27 RDW Coeff of Vale 12.9 % (11.5-14.5) 05/25/24 09:27 Plt Count 86 K/uL (130-400) L 05/25/24 09:27 MPV 12.1 fL (9.4-12.4) 05/25/24 09:27 Immature Gran % (Auto) 0.5 % 05/25/24 09:27 Neut % (Auto) 62.7 % 05/25/24 09:27 Lymph % (Auto) 26.1 % 05/25/24 09:27 [place] % (Auto) 8.9 % 05/25/24 09:27 Eos % (Auto) 1.3 % 05/25/24 09:27 Baso % (Auto) 0.5 % 05/25/24 09:27 Neut # (Auto) 2.40 K/uL (1.40-6.50) 05/25/24 09:27 Lymph # (Auto) 1.00 K/uL (1.20-3.40) L 05/25/24 09:27 [place] # (Auto) 0.34 K/uL (0.11-0.59) 05/25/24 09:27 Eos # (Auto) 0.05 K/uL (0.00-0.50) 05/25/24 09:27 Baso # (Auto) 0.02 K/uL (0.00-0.20) 05/25/24 09:27 Immature Gran # (Auto) 0.02 K/uL (0.01-0.20) 05/25/24 09: PT 12.4 Seconds (9.0-12.0) H 05/25/24 09: INR 1.2 (0.9-1.1) H 05/25/24 09:27 APTT 25 Seconds (21-31) 05/25/24 09: PTT Ratio 0.9 05/25/24 09: D-Dimer 1580 ug/L FEU (0-500) H* 05/25/24 09:27 POC Sodium 135 mmol/L (135-144) 05/25/24 09:52 Sodium 135 mmol/L (136-145) L 05/25/24 09:27 POC Potassium 3.6 mmol/L (3.3-5.0) 05/25/24 09:52 Potassium 3.6 mmol/L (3.5-5.1) 05/25/24 09:27 POC Chloride 95 mmol/L (101-112) L 05/25/24 09:52 Chloride 93 mmol/L (98-107) L 05/25/24 09:27 Carbon Dioxide 32 mmol/L (21-32) 05/25/24 09:27 POC Total CO2 30 mmol/L (24-31) 05/25/24 09:52 Anion Gap 10 (3-11) 05/25/24 09:27 POC Anion Gap 15.0 mmol/L (16-25) L 05/25/24 09:52 POC BUN 9 mg/dl (7-18) 05/25/24 09:52 BUN 10 mg/dl (6-23) 05/25/24 09:27 Creatinine 0.79 mg/dl (0.6-1.2) 05/25/24 09:27 POC Creatinine 0.8 mg/dl (0.6-1.3) 05/25/24 09:52 Est Cr Clr Drug Dosing 67.0 ml/min 05/25/24 09:27 eGFR 80.42 05/25/24 09:27 BUN/Creatinine Ratio 12.7 (10-20) 05/25/24 09:27 Glucose 152 mg/dl (70-99(Fasting)) H 05/25/24 09:27 POC Glucose (other) 159 mg/dl (70-99) H 05/25/24 09:52 Calcium 8.7 mg/dl (8.6-10.3) 05/25/24 09:27 POC Ioniz Calcium Cristy 1.00 mmol/l (1.12-1.32) L 05/25/24 09:52 Magnesium 1.3 mg/dl (1.7-2.4) L 05/25/24 09:27 Total Bilirubin 3.6 mg/dl (0.2-1.0) H 05/25/24 09:27 Direct Bilirubin 1.4 mg/dl (0-0.2) H 05/25/24 09:27 AST 381 U/L (13-39) H 05/25/24 09:27 ALT 163 U/L (7-52) H 05/25/24 09:27 Alkaline Phosphatase 383 U/L (34-104) H 05/25/24 09:27 Total Creatine Kinase 70 U/L (26-192) 05/25/24 09:27 Troponin I High Sens 20.3 pg/ml (0-14) H 05/25/24 12:27 B-Natriuretic Peptide 49 pg/ml (0-100) 05/25/24 12:27 Total Protein 6.7 gm/dl (6.0-8.3) 05/25/24 09:27 Albumin 3.7 gm/dl (3.4-5.0) 05/25/24 09:27 Globulin 3.0 gm/dl (2.5-4.0) 05/25/24 09:27 Albumin/Globulin Ratio 1.2 (0.9-2) 05/25/24 09:27 Lipase 155 U/L (11-82) H 05/25/24 12:27 TSH 5.442 uIu/ml (0.300-4.500) H 05/25/24 09:27 Free T4 1.16 ng/dl (0.61-1.60) 05/25/24 09:27 Urine Color Yellow 05/25/24 12:58 Urine Appearance Clear (Clear) 05/25/24 12:58 Urine pH 7.5 (4.5-7.5) 05/25/24 12:58 Ur Specific Sullivan > 1.045 (1.000-1.030) H 05/25/24 12:58 Urine Protein Negative (Negative) 05/25/24 12:58 Urine Glucose (UA) Negative (Negative) 05/25/24 12:58 Urine Ketones Negative (Negative) 05/25/24 12:58 Urine Blood Negative (Negative) 05/25/24 12:58 Urine Nitrite Negative (Negative) 05/25/24 12:58 Urine Bilirubin Negative (Negative) 05/25/24 12:58 Urine Urobilinogen Negative (Negative) 05/25/24 12:58 Ur Leukocyte Esterase Trace (Negative) H 05/25/24 12:58 Urine WBC (Auto) 0-5 /hpf (0-5) 05/25/24 12:58 Urine RBC (Auto) 0-2 /hpf (0-2) 05/25/24 12:58 U Hyaline Cast (Auto) 0-2 /lpf (0-2) 05/25/24 12:58 U Epithel Cells (Auto) 0-2 /hpf (0-2) 05/25/24 12:58 Urine Bacteria (Auto) None Seen (None Seen) 05/25/24 12:58 Urine Opiates Screen Neg (Neg) 05/25/24 12:58 Ur Methadone, Qual Neg (Neg) 05/25/24 12:58 Urine Fentanyl Screen Neg (Neg) 05/25/24 12:58 Urine Barbiturates Neg (Neg) 05/25/24 12:58 Ur Phencyclidine (PCP) Neg (Neg) 05/25/24 12:58 U Amphetamin/Meth Scrn Neg (Neg) 05/25/24 12:58 MDMA (Ecstasy) Screen Neg (Neg) 05/25/24 12:58 U Benzodiazepines Scrn Neg (Neg) 05/25/24 12:58 Ur Cocaine Metabolite Neg (Neg) 05/25/24 12:58 U Marijuana (THC) Screen Neg (Neg) 05/25/24 12:58 Ethyl Alcohol mg/dL < 10.0 mg/dl (<10.0) 05/25/24 12:27 Adenovirus (PCR) Not Detected (NotDetected) 05/25/24 09:20 Anaplasma Smear See Comment 05/25/24 12:27 Babesia Smear See Comment 05/25/24 12:27 B. pertussis DNA (PCR) Not Detected (NotDetected) 05/25/24 09:20 B.parapertussis DNA PCR Not Detected (NotDetected) 05/25/24 09:20 Lyme Disease Screen Negative (Negative) 05/25/24 12:27 C. pneumoniae DNA (PCR) Not Detected (NotDetected) 05/25/24 09:20 Coronavirus OC43 (PCR) Not Detected (NotDetected) 05/25/24 09:20 Coronavirus HKU1 (PCR) Not Detected (NotDetected) 05/25/24 09:20 Coronavirus 229E (PCR) Not Detected (NotDetected) 05/25/24 09:20 SARS-CoV-2 (PCR) Not Detected (NotDetected) 05/25/24 09:20 Coronavirus NL63 (PCR) Not Detected (NotDetected) 05/25/24 09:20 Hep Bs Antigen Negative (Negative) 05/25/24 12:27 Hepatitis C Antibody Negative (Negative) 05/25/24 12:27 Human Metapneumovir PCR Not Detected (NotDetected) 05/25/24 09:20 Influenza Type A (PCR) Not Detected (NotDetected) 05/25/24 09:20 Influenza Type B (PCR) Not Detected (NotDetected) 05/25/24 09:20 M. pneumoniae (PCR) Not Detected (NotDetected) 05/25/24 09:20 Parainfluenza 1 (PCR) Not Detected (NotDetected) 05/25/24 09:20 Parainfluenza 2 (PCR) Not Detected (NotDetected) 05/25/24 09:20 Parainfluenza 3 (PCR) Not Detected (NotDetected) 05/25/24 09:20 Parainfluenza 4 (PCR) Not Detected (NotDetected) 05/25/24 09:20 RSV (PCR) Not Detected (NotDetected) 05/25/24 09:20 Entero/Rhino (PCR) Not Detected (NotDetected) 05/25/24 09:20 Impressions Chest X-Ray 05/25/24 09:02 XR chest 1V portable CLINICAL HISTORY: Dysrhythmia. COMPARISON STUDY: Chest CT April 19, 2024. Chest radiograph May 01, 2024. FINDINGS: Old right humeral neck fracture is incidentally noted. Lung volumes are normal. Minimal left basilar opacity is unchanged. There is no pneumothorax or pleural effusion. Cardiac size is normal. Mediastinal contours are normal. There is no evidence for pulmonary edema. IMPRESSION: No change in appearance of the chest. Minimal left basilar opacity, similar to prior exam. This favors a chronic infectious process when correlating with prior CT. ACT 112: Negative or not required by law. Electronically signed by: Cali Blankenship M.D. 05/25/2024 9:19 AM Abdomen/Pelvis CT 05/25/24 10:34 CT OF THE ABDOMEN AND PELVIS WITH CONTRAST CLINICAL HISTORY: Abnormal liver function tests COMPARISON STUDY: CT of the abdomen and pelvis January 24, 2020. MRI of the abdomen January 26, 2020. Right upper cord ultrasound September 02, 2022. TECHNIQUE: Following IV administration of 120 mL of Optiray, axial images of the abdomen and pelvis were obtained from the lung bases to the proximal femurs. Images were reviewed in the axial, sagittal, and coronal planes. IV contrast was administered without complication. Automated exposure control was utilized for the study. A dose lowering technique was utilized adhering to the principles of ALARA. FINDINGS: No pneumatosis, free air or portal venous gas is present. There is severe hepatic steatosis. The right hepatic lobe is enlarged and the left hepatic lobe is atrophied. The left portal vein is not well visualized. The main and right portal veins are patent. The right hepatic lobe abnormality on prior CT and MRI is not visualized. The spleen, adrenal glands, left kidney and pancreas are unremarkable. A water attenuation 4 cm right lower pole lesion represents a cyst. There is no biliary or pancreatic ductal dilatation. There is mild wall thickening of the second portion the duodenum with mild adjacent stranding. There is no extraluminal gas. There is no fluid collection. Colonic diverticulosis is present. There is no evidence for a bowel obstruction status post sigmoid resection. A cystic 4.4 cm left adnexal lesion has mildly decreased in size since CT of January 24, 2020. This remains indeterminate. There is no lymphadenopathy. IMPRESSION: 1. Severe hepatic steatosis. Enlargement of the right hepatic lobe and left hepatic lobe atrophy suggests cirrhosis. 2. Mild wall thickening of the second portion of the duodenum with adjacent stranding. This may reflect duodenitis. Acute pancreatitis is within the differential although considered less likely. 3. No bowel obstruction. Colonic diverticulosis. No evidence for acute diverticulitis. 4. 4.4 cm cystic left adnexal lesion which has mildly decreased in size since CT of January 24, 2020. This remains indeterminate. ACT 112: Negative or not required by law. Electronically signed by: Cali Blankenship M.D. 05/25/2024 11:11 AM Chest CTA 05/25/24 10:34 CT ANGIOGRAPHY OF THE CHEST, PULMONARY EMBOLUS PROTOCOL CLINICAL HISTORY: Shortness of breath. Tachycardia. COMPARISON STUDY: Chest CT April 19, 2024. Chest radiograph performed earlier today. TECHNIQUE: Following IV administration of 120 mL of Optiray, helical axial images of the chest were obtained utilizing the pulmonary embolus protocol. Maximal intensity projections and sagittal and coronal reformats were viewed on an independent 3D workstation. IV contrast was administered without complication. Automated exposure control was utilized for the study. A dose lowering technique was utilized adhering to the principles of ALARA. CT DOSE: 1747.17 mGy.cm FINDINGS: No pulmonary emboli are identified. There is no thoracic aortic dissection. Size of the heart is normal. There is no pericardial effusion. No enlarged axillary, mediastinal or hilar lymph nodes are present. There is no pneumothorax or pleural effusion. There are mild secretions within the airways. There is no consolidation to suggest pneumonia. Lingular opacity has improved since CT of April 19, 2024. A few small subpleural right middle lobe nodules are unchanged. These are likely benign. Mild bronchial wall thickening with mucus plugging within the lower lobes has improved since prior examination. The abdomen and pelvis CT will be reported separately. There is hepatic steatosis. IMPRESSION: 1. No pulmonary emboli identified. 2. No consolidation to suggest pneumonia. Interval improvement in lingular opacity since prior CT. 3. Mild bilateral lower lobe bronchial wall thickening and mucus plugging which has also improved. ACT 112: Negative or not required by law. Electronically signed by: Cali Blankenship M.D. 05/25/2024 11:00 AM Supervising Physician Co-Signing Physician Notes See communication note. (4) Pneumonia Laterality: left Lung location: unspecified part of lung Pneumonia type: due to unspecified organism Qualified Code(s): J18.9 - Pneumonia, unspecified organism
[2024-05-25] MEDS: LEVALBUTEROL 1.25 MG/3 ML NEB NEB SCH (15:44)
--- OUTSIDE RECORDS SUMMARY | 2024-05-25 16:16 | External Medical Summary | Summary of Care ---
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 1 Tab 0 3 Active CALCIUM 500 MG PO TABS Take 600 mg by mouth at bedtime. 1 Tab 0 3 Active folic acid 1 MG Tablet Take 1 Tablet by mouth in the morning. 30 Tab 11 8 Active Vitamin D, Cholecalciferol, 1000 units CAPS Take 1 Capsule by mouth. Three times a week 8 Active magnesium chloride ER (MAG-64) 64 MG TBECIndications: Hospital discharge follow-up,Sepsis , due to unspecified organism,Alcohol use,Hypomagnesem ia Take 125 mg by mouth daily. DC from [facility] 8 Active metroNIDAZOLE 1 % External Gel (Metrogel)Indica tions:Perioral dermatitis Apply topically to affected area 2 times a day. To affected area. 30 g 5 3 Active Famotidine 20 MG Oral Tablet (Pepcid) TAKE ONE TABLET BY MOUTH IN THE MORNING AND TAKE ONE TABLET BY MOUTH BEFORE BEDTIME 180 Tablet 1 06/21/2023 9:18 AM EST 3 06/16/20 24 Active Additional Information Patient taking differently: Takes at bedtime only., Reported on 07/17/2023 DULoxetine HCl 30 MG Oral Capsule Delayed Release Particles (Cymbalta)Indica tions:Major depressive disorder, recurrent episode, moderate (HCC),Paresthesi as Take 1 Capsule by mouth in the morning do not cut, crush or chew. 100 Capsule 1 02/16/2024 1:00 PM EDT 4 Active Albuterol Sulfate HFA 108 (90 Base) MCG/ACT Inhalation Aerosol SolutionIndicati ons:Wheezing,Tob acco use disorder INHALE 2 PUFFS EVERY 4 HOURS NEEDED FOR WHEEZING. 18 g 2 4 Active Fluticasone-Umec lidin-Vilant 100-62.5-25 MCG/ACT Aerosol Powder Breath Activated (Trelegy Ellipta) Inhale 1 Puff by mouth in the morning. 180 Each 3 05/06/2024 8:50 AM EDT 4 Active Additional Information Patient taking differently:1 Puff [id number], (Afternoon), Reported on 05/05/2024 Gabapentin 600 MG Oral Tablet (Neurontin)Indic ations:Paresthes ias Take 1 Tablet by mouth in the morning and 1 Tablet before bedtime. 200 Tablet 1 02/18/2024 6:55 AM EDT 4 Active Atorvastatin Calcium 20 MG Oral Tablet (Lipitor)Indicat ions:Dyslipidemi a, goal LDL below 100 Take 1 Tablet by mouth in the morning. 100 Tablet 03/21/2024 11:29 AM EDT 4 Active Pantoprazole Sodium 20 MG Oral Tablet Delayed Release (Protonix)Indica tions:Colonic diverticular abscess,Liver abscess TAKE ONE TABLET BY MOUTH IN THE MORNING 30 MINUTES BEFORE THE FIRST MEAL OF THE DAY DO NOT CUT CRUSH OR CHEW 90 Tablet 1 04/06/2024 5:31 PM EDT 4 Active LORazepam 1 MG Oral Tablet (Ativan)Indicati ons:Generalized anxiety disorder Take 1/2 to 1 tablet three times a day as needed 60 Tablet 4 Active Levalbuterol HCl 1.25 MG/3ML Inhalation Nebulization Solution (Xopenex) Inhale 1 Ampule via nebulizer every 6 hours as needed for Shortness of Breath or Wheezing. 4 Active Thiamine HCl 100 MG Oral Tablet (vitamin B-1) Take 1 Tablet by mouth in the morning. 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 Alcohol dependence, continuous 10/29/2022 Gastro-esophageal reflux disease without esophag itis 01/17/2022 COPD, group C, by GOLD 2017 classification 12/20 Prediabetes 02/20/2020 Overview: Per Prediabetes protocol Diverticulitis of sigmoid colon 01/26/2020 Alcoholic cirrhosis of liver without ascites 10/2018 Biliary disease 09/13/[address] 11/20/2015 Hypokalemia 11/20/2015 Hypomagnesemia 11/20/2015 Restrictive lung disease 11/11/2015 Overview (11/28/2015): PFT Alcohol use 08/28/2015 MEDICATION USE AGREEMENT 08/28/2015 Overview (08/28/2015): redo 08/28/15 Overweight (BMI 25.0-29.9) 06/17/2013 Overview (06/17/2013): bmi= 25.86 06/17/13 Tobacco use 05/03/2012 Major depressive disorder, recurrent episode, mo derate 08/01/2011 Generalized anxiety disorder 08/01/2011 Dyslipidemia, goal LDL below 100 HTN, goal below 140/90 documented as of this encounter (statuses as of 05/25/2024) Resolved Problems Problem Noted Date Diagnosed Date Resolved Date Portal vein thrombosis 04/16/201809/14 Hematuria 04/02/2018 01/17/2022 Spasm of lumbar paraspinous muscle 07/16/2017 01/17/2022 Bilateral sacroiliitis 07/16/201708/01 Acute respiratory failure with hypoxia 11/20/2015 01/17/2022 Fatty liver 08/28/2015 11/20/2015 Screen for colon cancer 08/28/2015 07/0 02/2022 Need for shingles vaccine 06/17/2013 Neck swelling 11/25/2012 08/28/2015 Overweight (BMI 25.0-29.9) 05/03/2012 0 12/11/2016 Overview (05/03/2012): bmi= 28.48 05/03/12 Gastroesophageal reflux 05/03/201208/13 Abnormal results of liver function studies 05/03/2012 08/28/2015 Colon cancer screening 05/03/201208/28 Screening for colon cancer 10/03/2011 1 08/18/2012 Other screening mammogram 10/03/2011 Overweight (BMI 25.0-29.9) 08/01/2011 0 12/11/2016 Overview (08/01/2011): BMI= 27.88 08/01/11 Need for pneumococcal vaccination 08/01/2011 08/28/2015 Need for influenza vaccination 08/01/2011 08/28/2015 Overweight (BMI 25.0-29.9) 08/01/2011 0 12/11/2016 Overview (08/01/2011): BMI= 27.88 08/01/11 Other acute reactions to stress 08/01/2011 08/28/2015 Esophageal reflux 08/01/2011 08/28/2015 Dyslipidemia, goal LDL below 100 08/01/2011 08/28/2015 Bilateral dry eyes 08/01/2011 6 HTN, goal below 140/90 08/01/201103/04 Overview: Per HTN Protocol #27. MEDICATION USE AGREEMENT 08/01/2011 Overview (08/01/2011): 08/01/11 Diabetes mellitus screening 07/16/2011 08/28/2015 OVERWEIGHT, BMI= 37.62 08/23/10 08/23/2010 02/06/2020 Overview (02/06/2020): history Other screening mammogram 08/23/2010 Palpitations 08/23/2010 [...] OBSTIPATION 10/12/2007 08/28/2015 Major depressive disorder 04/16/2004 Overview (05/05/2017): ICD-10 update of inactive term Anxiety states 04/16/2004 02/20/2010 Overview (05/05/2017): ICD-10 update of inactive term Liver abscess 01/30/2020 Overview (06/29/2009): FATTY LIVER documented as of this encounter (statuses as of 05/25/2024) Immunizations Name Administration Dates Next Due COVID-19 mRNA, LNP-s, No Pre serve, 2-Dose Series (StyleFactory) 01/01/2022,07/12/2021,08/25/2020,07/14 COVID-19, MRNA-LNP, PF, 30 M CG/0.3 mL, 12 YRS AND ABOVE, IM (Symcircle-Comirnaty) 05/05/2024,07/17/2023 Covid-19, Mrna, Lnp-s, Pf, B ivalent, 30 [...] IM, 0.5 mL (Fluzone) 05/03/2012,08/01/2011,08/23/2010,06/12,05/17/2008 Seasonal Influenza, High Dos e, Trivalent, PF, IM (Fluzone HD) 05/05/2024 Seasonal Influenza, PF, 6 M & above, [...] Date Smoking Tobacco: Every Day Cigarettes 0.5 50.6 Started: [birth year]/10/1972; Last attempted to quit: 12/10/2022 Passive Smoke Exposure: Past Smokeless Tobacco: Never Comments:04/25/2024 - Report s occasionally smoking and states she is on her way to quitting. Declines additional support for smoking cessation at this time. Alcohol Use Standard Drinks/Week Comments Yes 0 (1 standard drink = 0.6 oz pure alcohol) Admits to drinking a cocktail daily. AUDIT-C Answer Date Recorded Frequency of Alcohol Consumption Never 09/13/2018 Average Number of Drinks Not on file 019 Frequency of Binge Drinking Not on file 10/2018 PHQ-2 Answer Date Recorded PHQ Adult Total Score 0 04/25/2024 Hunger Vital Sign Answer Date Recorded Within the past 12 months, y ou worried that your food would run out before you got the money to buy more. Never true 04/25/20 24 Within the past 12 months, t he food you bought just didn't last and you didn't have money to get more. Never true 04/25/2024 Childcare Answer Date Recorded Do you feel overwhelmed with taking care of a child, family member or friend? No 04/25/2024 Does your family need help f inding childcare? (Household - for ages 0-17 years) Not on file 04/25/2024 Clothing Answer Date Recorded Have you been unable to get clothing when it was really needed? No 04/25/2024 Is your family able to get c lothes or diapers when needed? (Household - for ages 0-17 years) Not on file 04/25/2024 Personal Safety Answer Date Recorded Do you feel unsafe or have concerns for your saf ety? No 04/25/2024 Do you have concerns for you r family's safety? (Household - for ages 0-17 years) Not on file 04/25/2024 Utilities Answer Date Recorded Do you have trouble paying y our heating, water, or electric bill? No 04/25/2024 Is your family able to pay t he heat, water, or electric bill? (Household - for ages 0-17 years) Not on file 04/25/2024 Does your family have access to good internet? (Household - for ages 0-17 years) Not on file 04/25/2024 Employment Status Answer Date Recorded Are you unemployed or without regular income? No 04/25/2024 Does the household have a re gular source of income? (Household - for ages 0-17 years) Not on file 04/25/2024 Social Connections Answer Date Recorded How often do you feel lonely or isolated from th ose around you? Never 04/25/2024 Financial Resource Strain Answer Date R ecorded Do you have any trouble payi ng for your medications, or do you think you might in the future? No 04/25/2024 Does your family have troubl e paying for medicine? (Household - for ages 0-17 years) Not on file 04/25/2024 Transportation Needs Answer Date Record ed READ ONLY Do you have troubl e getting a ride to medical visits or work? Never True 04/25/2024 Does your family have a hard time getting a ride to doctors visits? (Household - for ages 0-17 years) Not on file 04/25/2024 Has lack of transportation k ept you from medical appointments, meetings, work, or from getting things needed for daily living? Check all that apply. No 04/25/2024 Do you (or your family) have trouble finding or paying for a ride (transportation)? (Household - for ages 0-17 years) Not on file 04/25/2024 Housing Stability Answer Date Recorded Do you currently live in a s helter or have no steady place to sleep at night? No 04/25/2024 READ ONLY Do you think you a re at risk of becoming homeless? No 04/25/2024 Does your family worry about paying for your home or becoming homeless? (Household - for ages 0-17 years) Not on file 1 Are you homeless or worried that you might be in the future? No 04/25/2024 Are you (or your family) keshawn eless or worried that you might be in the future? (Household - for ages 0-17 years) Not on file Food Insecurity Answer Date Recorded Do you need food for this week? No 04/25/2024 Are you able to get enough f ood for your family? (Household - for ages 0-17 years) Not on file 04/25/2024 Does your family need food t his week? (Household - for ages 0-17 years) Not on file 04/25/2024 Do you always have enough fo od for your family? 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 Answer Date of Assessment Author No 01/14/2023 2:24 PM EDT Chelsey Jefferson RN * Are you blind or do you have serious difficulty seeing, even when wearing glasses? Answer Date of Assessment Author No 01/14/2023 2:24 PM EDT Chelsey Jefferson RN * Do you have serious difficulty walking or climbing stairs? (5 years old or older) Answer Date of Assessment Author No 01/14/2023 2:24 PM EDT Chelsey Jefferson RN * Do you have difficulty dressing or bathing? (5 years old or older) Answer Date of Assessment Author No 01/14/2023 2:24 PM EDT Chelsey Jefferson RN * Because of a physical, mental, or emotional condition, do you have difficulty doing errands alone such as visiting a doctors office or shopping? (15 years old or older) Answer Date of Assessment Author No 01/14/2023 2:24 PM EDT Chelsey Jefferson RN documented as of this encounter Mental Status * Because of a physical, mental, or emotional condition, do you have serious difficulty concentrating, remembering, or making decisions? (5 years old or older) Answer Entry Date Author No 01/14/2023 2:24 PM Chelsey Samson RN documented in this encounter Plan of Treatment Upcoming Encounters Date Type Department Care Team (Late st Contact Info) Description 06/20/2024 3:00 PM EST Office Visit Pulmonary Medicine, [address] [place] [address] Devan Blue MD [facility] [address] [place] [address] 06/24/2024 10:00 AM EST Office Visit [facility] [address] [place] [address] Paloma Vidales MD [address] [place] [address] 07/19/2024 11:40 AM EST Office Visit Dermatology[address] [address] Mellissa Blanco PA-C [address] [place] [address] [place] [address] 07/26/2024 10:00 AM EST Office Visit [facility] [address] [place] [address] Paloma Vidales MD [address] [place] [address] 08/05/2024 3:00 PM EST Office Visit Family Practice [facility] [address] [facility] [place] [address] [address] Morales DO [address] [place] [address] Scheduled Procedures Name Priority Associated Diagnoses Date/Ti me COLONOSCOPY FLEXIBLE PROXIMA L DIAGNOSTIC Recall Encounter for screening colonoscopy Health Maintenance Due Date Last Done Comments DISCUSS TOBACCO CESSATION (REFER TO SMARTSET #7931) 1953 Cologuard 1998 Fecal Occult Blood Test 1998 Sigmoidoscopy 1998 Hepatitis B Vaccine (1 of 3 - Risk 3-dose series) 2013 Adult Wellness Visit 2019 *ADVANCE DIRECTIVE NOT ON FILE 01/20/2022 Mammogram 01/01/2024 12/31/2022, 12/12, 10/18/2021, Additional history exists O2 ASSESSMENT COMPLETED IN PAST YEAR FOR COPD 11/17/2024 11/18/2023 Albumin/Creatinine Ratio 01/17/2025 01/17/2022, 08/13 Depression Monitoring 04/25/2025 04/25/2024 GFR 05/05/2025 05/05/2024, 01/10, 01/24/2023, Additional history exists HbA1c 05/05/2025 05/05/2024, 07/0 12/2022, 08/28/2022, Additional history exists DXA Scan 11/19/2025 11/19/2018 Colonoscopy 12/20/2025 12/21/2015, 12/11, 11/15/2015, Additional history exists Colorectal Cancer Screening 12/20/2025 Lipid Panel 05/05/2029 05/05/2024, 12/0 09/2020, 12/11/2016, Additional history exists DTap/Tdap Vaccines (3 - Td or Tdap) 06/14/2031 06/14/2021, 09/04/2009 Lung Cancer Screening Completed 11/15/2015 Alpha-1 Antitrypsin Completed 12/25/2021 Pneumococcal Vaccine: 65+ Years Completed 01/17/2022, 08/10/2018, 08/01/2011 Zoster Vaccines Completed 01/17/2022, 07/14, 01/06/2016 COVID-19 Vaccine Completed 05/05/2024, 11/2023, 01/08/2023, Additional history exists Influenza Vaccine (FLU shot) Completed , 04/10/2023, 04/16/2022, Additional history exists HPV (Gardasil) Vaccine Aged Out No lo nger eligible based on patient's age to complete this topic MENINGOCOCCAL (MENACTRA/MENVEO) Aged Out No longer eligible based on patient's age to complete this topic documented as of this encounter Medical Devices Not on filedocumented as of this encounter Advance Directives Documents on File Type Date Recorded Patient Identification Technician Expl anation Power of Wedger 01/11/2023 Porter Gregory POWER OF IP LITIGATION ASSOCIATE * Full Code (Latest Code Status [...] Agen t (per Health Care Power of Wedger document) Care Teams Solar Photovoltaic Installer Relationship Specialty Start Date End Date Ct Morales DO [address] [place] [address] PCP - General Family Medicine 12/31/23 documented as of this encounter
--- OUTSIDE RECORDS SUMMARY | 2024-05-25 16:17 | External Medical Summary ---
Author Name Unknown Address Unknown Organization [id number]:[facility] [address] [place] [address] Laboratory Report Ordering Provider Test Date Status SUNDAR ROBLES 05/05/2024 14:50:48 Final Observation Date Value Abnormality Reference (Units ) Status Magnesium 05/05/2024 14:50:48 1.8 1.5-2.6 (m g/dL) Final Performing Location [facility] [address] [place] [address]
--- OUTSIDE RECORDS SUMMARY | 2024-05-25 16:17 | External Medical Summary | Summary of Care ---
Author Name Unknown Organization [facility] Address [address] [place] [address] Phone [phone] Care Team Providers Care Head Butler Name Role Phone Ct Christy DO Primary Care Provider Reason for Visit * Reason Onset Date Comments Medication Refill 05/23/2024 Encounter Details Date Type Department Care Team (Late st Contact Info) Description 05/23/2024 Refill Family Practice [address] [place] [address] [place] [address] [address] Christy DO [address] [place] [address] Allergies No known active allergiesdocumented as of this encounter (statuses as of 05/23/2024) Medications DAILY VALUE MULTIVITAMIN PO TABS Take by mouth at bedtime. 1 Tab 0 11/26/19 13 Active CALCIUM 500 MG PO TABS Take 600 mg by mouth at bedtime. 1 Tab 0 11/26/19 13 Active folic acid 1 MG Tablet Take 1 Tablet by mouth in the morning. 30 Tab 11 04/16/20 18 Active Vitamin D, Cholecalciferol, 1000 units CAPS Take 1 Capsule by mouth. Three times a week 04/16/20 18 Active magnesium chloride ER (MAG-64) 64 MG TBECIndications: Hospital discharge follow-up,Sepsis , due to unspecified organism,Alcohol use,Hypomagnesem ia Take 125 mg by mouth daily. DC from [facility] 04/16/20 18 Active metroNIDAZOLE 1 % External Gel (Metrogel)Indica tions:Perioral dermatitis Apply topically to affected area 2 times a day. To affected area. 30 g 5 10/10/19 23 Active Famotidine 20 MG Oral Tablet (Pepcid) TAKE ONE TABLET BY MOUTH IN THE MORNING AND TAKE ONE TABLET BY MOUTH BEFORE BEDTIME 180 Tablet 1 06/21/2023 9:18 AM EST 06/17/20 23 024 Active Additional Information Patient taking differently: Takes at bedtime only., Reported on 07/17/2023 DULoxetine HCl 30 MG Oral Capsule Delayed Release Particles (Cymbalta)Indica tions:Major depressive disorder, recurrent episode, moderate (HCC),Paresthesi as Take 1 Capsule by mouth in the morning do not cut, crush or chew. 100 Capsule 1 02/16/2024 1:00 PM EDT 11/07/19 24 Active Albuterol Sulfate HFA 108 (90 Base) MCG/ACT Inhalation Aerosol SolutionIndicati ons:Wheezing,Tob acco use disorder INHALE 2 PUFFS EVERY 4 HOURS NEEDED FOR WHEEZING. 18 g 2 01/21/20 24 Active Fluticasone-Umec lidin-Vilant 100-62.5-25 MCG/ACT Aerosol Powder Breath Activated (Trelegy Ellipta) Inhale 1 Puff by mouth in the morning. 180 Each 3 05/06/2024 8:50 AM EDT 02/05/20 24 Active Additional Information Patient taking differently:1 Puff [id number], (Afternoon), Reported on 05/05/2024 Gabapentin 600 MG Oral Tablet (Neurontin)Indic ations:Paresthes ias Take 1 Tablet by mouth in the morning and 1 Tablet before bedtime. 200 Tablet 1 02/18/2024 6:55 AM EDT 02/15/20 24 Active Atorvastatin Calcium 20 MG Oral Tablet (Lipitor)Indicat ions:Dyslipidemi a, goal LDL below 100 Take 1 Tablet by mouth in the morning. 100 Tablet 03/21/2024 11:29 AM EDT 03/20/20 24 Active Pantoprazole Sodium 20 MG Oral Tablet Delayed Release (Protonix)Indica tions:Colonic diverticular abscess,Liver abscess TAKE ONE TABLET BY MOUTH IN THE MORNING 30 MINUTES BEFORE THE FIRST MEAL OF THE DAY DO NOT CUT CRUSH OR CHEW 90 Tablet 1 04/06/2024 5:31 PM EDT 04/05/20 24 Active LORazepam 1 MG Oral Tablet (Ativan)Indicati ons:Generalized anxiety disorder Take 1/2 to 1 tablet three times a day as needed 60 Tablet 04/27/20 24 Active Levalbuterol HCl 1.25 MG/3ML Inhalation Nebulization Solution (Xopenex) Inhale 1 Ampule via nebulizer every 6 hours as needed for Shortness of Breath or Wheezing. 04/21/20 24 Active Thiamine HCl 100 MG Oral Tablet (vitamin B-1) Take 1 Tablet by mouth in the morning. 90 Tablet 1 05/23/20 24 Active Thiamine HCl 100 MG Oral Tablet (vitamin B-1) Take 1 Tablet by mouth in the morning. 90 Tablet 1 11/06/19 24 024 Discontin ued(Refil l) documented as of this encounter (statuses as of 05/23/2024) Active Problems Problem Noted Date Diagnosed Date [...] as of this encounter (statuses as of 05/23/2024) Resolved Problems Problem Noted Date Diagnosed Date [...] as of this encounter (statuses as of 05/23/2024) Immunizations Name Administration Dates Next Due COVID-19 mRNA, LNP-s, No Pre serve, 2-Dose Series (Pfizer) 01/01/2022,07/12/2021,08/25/2020,07/14 COVID-19, MRNA-LNP, PF, 30 M CG/0.3 mL, 12 YRS AND ABOVE, IM ([facility]) 05/05/2024,07/17/2023 Covid-19, Mrna, Lnp-s, Pf, B ivalent, [...] of Assessment Author No 01/14/2023 2:24 PM SUKHWINDERT Chelsey Jefferson RN documented as of this encounter Mental Status * Because of a physical, mental, or emotional condition, do you have serious difficulty concentrating, remembering, or making decisions? (5 years old or older) Answer Entry Date Author No 01/14/2023 2:24 PM SUKHWINDERT Chelsey Jefferson RN documented in this encounter Miscellaneous Notes * Telephone Encounter - Ct Christy DO - 05/23/2024 1:56 PM ESTSigned Prescriptions: Disp Refills Thiamine HCl 100 MG Oral Tablet (vitamin B*90 Tab*1 Sig: Take 1 Tablet by mouth in the morning. Authorizing Provider: CT CHRISTY * Telephone Encounter - Linda Salinas, balance recesser - 05/23/2024 1:55 PM EST Did you pend patient's preferred pharmacy and medication before forwarding?yes Pharmacy: [id number] [address] Pending Prescriptions: Disp Refills Thiamine HCl 100 MG Oral Tablet (vitamin *90 Tab*1 Sig: Take 1 Tablet by mouth in the morning. Last Visit: 05/05/2024 (in office), 01/22/2024 (telemedicine) Next Visit: 08/05/2024 If no future appointments scheduled, and last appointment is greater than a year ago, please schedule patient for a follow-up appointment Last date the medication was ordered: Is this request for a controlled substance?No Urine Drug Screen:No results found. However, due to the size of the patient record, not all encounters were searched. Please check Results Review for a complete set of results. Patient Phone Numbers Labs: Lab Results Component Value Date/Time CREAT 0.7 05/05/2024 02:50 PM CREAT 0.9 02/06/2020 12:40 PM POTASSIUM 4.5 05/05/2024 02:50 PM POTASSIUM 4.8 02/06/2020 12:40 PM TSH 2.58 02/02/2023 05:10 PM TSH 4.610 (A) 04/13/2018 12:00 AM TSH 0.82 12/11/2016 03:29 PM LDL 99 05/05/2024 02:50 PM LDL 149 (H) 12/11/2016 03:29 PM ALT 77 (H) 05/05/2024 02:50 PM ALT 21 02/06/2020 12:40 PM HGBA1C 6.8 (H) 05/05/2024 02:50 PM HGBA1C 5.8 (H) 02/06/2020 12:40 PM documented in this encounter Plan of Treatment Upcoming Encounters Date Type Department Care Team (Late st Contact Info) Description 06/20/2024 3:00 PM EST Office Visit Pulmonary Medicine, [facility] [address] [facility] [place] [address] Devan Blue MD [address] [place] [phone] 06/24/2024 10:00 AM EST Office Visit [facility] [address] [place] [address] Paloma Vidales MD [address] [place] [address] [place] [address] 07/19/2024 11:40 AM EST Office Visit Dermatology[address] [address] Mellissa Blanco PA-C [address] [place] [address] [place] [address] 07/26/2024 10:00 AM EST Office Visit [facility] [address] [place] [address] Paloma Vidales MD [address] [place] [address] [place] [address] 08/05/2024 3:00 PM EST Office Visit Family Practice [address], [place] [address] [place] [phone] Ct Christy DO [address] [place] [address] Scheduled Procedures Name Priority Associated Diagnoses Date/Ti me COLONOSCOPY FLEXIBLE PROXIMA L DIAGNOSTIC Recall Encounter for screening colonoscopy Health Maintenance Due Date Last Done Comments DISCUSS TOBACCO CESSATION (REFER TO SMARTSET #0837) 1955 Cologuard 1998 Fecal Occult Blood Test [...] 01/24/2023, Additional history exists HbA1c 05/05/2025 05/05/2024, 07/12/2022, 08/28/2022, Additional history exists DXA Scan 11/19/2025 11/19/2018 Colonoscopy 12/20/2025 12/21/2015, 12/11, 11/15/2015, Additional history exists Colorectal Cancer Screening 12/20/2025 Lipid Panel 05/05/2029 05/05/2024, 1209/2020, 12/11/2016, Additional history exists DTap/Tdap Vaccines (3 [...] Documents on File Type Date Recorded 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
--- OUTSIDE RECORDS SUMMARY | 2024-05-25 16:17 | External Medical Summary | Summary of Care ---
Author Name Unknown Organization [facility] Address [address] [place] [address] Phone [phone] Care Team Providers Care Electronic Service Technician Name Role Phone ElCt newman Braulio NEGRON Primary Care Provider [phone] Encounter Details Date Type Department Care Team (Late st Contact Info) Description 05/18/2024 Population Health External Data Unspecified Department Allergies No known active allergiesdocumented as of this encounter (statuses as of 05/18/2024) Medications Medication Sig Dispensed Refills Start Date [...] Capsule by mouth. Three times a week 04/16/2018 Active magnesium chloride ER (MAG-64) 64 [...] the morning. 90 Tablet 1 11/06/2023 Active Albuterol Sulfate HFA 108 (90 Base) MCG/ACT Inhalation Aerosol SolutionIndication s:Wheezing,Tobacco use disorder INHALE 2 PUFFS EVERY 4 HOURS NEEDED FOR WHEEZING. 18 g 2 01/21/2024 Active Fluticasone-Umecli din-Vilant 100-62.5-25 MCG/ACT Aerosol Powder Breath Activated (Trelegy Ellipta) Inhale 1 Puff by mouth in the morning. 180 Each 3 02/05/2024 Active Additional Information Patient taking differently:1 Puff [id number], (Afternoon), Reported on 05/05/2024 Gabapentin 600 MG Oral Tablet (Neurontin)Indicat ions:Paresthesias [...] OR CHEW 90 Tablet 1 04/05/2024 Active LORazepam 1 MG Oral Tablet (Ativan)Indication s:Generalized anxiety disorder Take 1/2 to 1 tablet three times a day as needed 60 Tablet 04/27/2024 Active Levalbuterol HCl 1.25 MG/3ML Inhalation Nebulization Solution (Xopenex) Inhale 1 Ampule via nebulizer every 6 hours as needed for Shortness of Breath or Wheezing. 04/21/2024 Active documented as of this encounter (statuses as of 05/18/2024) Active Problems Problem Noted Date Diagnosed Date [...] as of this encounter (statuses as of 05/18/2024) Resolved Problems Problem Noted Date Diagnosed Date [...] as of this encounter (statuses as of 05/18/2024) Immunizations Name Administration Dates Next Due COVID-19 mRNA, LNP-s, No Pre serve, 2-Dose Series ([employer]) 01/01/2022,07/12/2021,08/25/2020,07/14 COVID-19, MRNA-LNP, PF, 30 M CG/0.3 mL, 12 YRS AND ABOVE, IM ([facility]) 05/05/2024,07/17/2023 Covid-19, Mrna, Lnp-s, Pf, B ivalent, [...] No 04/25/2024 Does the household have a [facility] hospital[facility] source of income? (Household - for [...] ages 0-17 years) Not on file 04/25/2024 Sex and Gender Information Value Date Recorded [...] 3:00 PM EST Office Visit Pulmonary Medicine, [facility] [address] [place] [address] Devan Blue [facility] [address] [facility] [address] 06/24/2024 10:00 AM EST Office Visit [facility] [address] [place] [address] Paloma Vidales MD [address] [place] [address] 07/19/2024 11:40 AM EST Office Visit Dermatology[address] [address] Mellissa Blanco PA-C [address] [place] [address] [place] [address] 07/26/2024 10:00 AM EST Office Visit [facility] [address] [place] [address] Paloma Vidales MD [address] [place] [address] 08/05/2024 3:00 PM EST Office Visit Family Practice [address] [facility] [address] 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
--- OUTSIDE RECORDS SUMMARY | 2024-05-25 16:17 | External Medical Summary | Summary of Care ---
Author Name Unknown Organization [facility] Address [address] [place] [address] Phone [phone] Care Team Providers Care Supervisor Audit Clerks Name Role Phone Ct Morales DO Primary Care Provider [phone] Reason for Referral * Evaluate & Treat - Unlimited Visits (Within 30 days (routine)) - Authorized Specialty Diagnoses / Procedures Referred By Mark kaufman Referred To Contact Pulmonary Diseases / Pulmonary Diagnoses COPD, group C, by GOLD 2017 classification (HCC) Chronic hypoxemic respiratory failure (HCC) Atypical pneumonia Ct Morales DO [address] [place] [address] Referral ID Status Reason Start Date Expiration Date Visits Requested Visits Authorized [id number] Authorized Specialty Services Required [phone] Question Answer Referral Priority Within 30 days (routine) Where should this appointment be scheduled? [facility] Primary Reason for Referral? Other Reason for Visit * Reason Onset Date Comments Hospital Follow-Up Medication Administration 05/05/2024 Flu an d/or Pneumo Inj Encounter Details Date Type Department Care Team (Latest Contact Info) Description 05/05/2024 1:40 PM EDT Office Visit Family Practice [address] [place] [address] [place] [id number] [address] Morales DO [address] [place] [address] Hospital discharge follow-up*; Atypical pneumonia; Alcohol dependence, continuous (HCC); Tachycardia; COPD, group C, by GOLD 2017 classification (HCC); Chronic hypoxemic respiratory failure (HCC); Tobacco use disorder; Encounter for long-term (current) use of medications; Need for prophylactic vaccination and inoculation against influenza; Need for COVID-19 vaccine; Risk and functional assessment Allergies No known active allergiesdocumented as of this encounter (statuses as of 05/05/2024) Medications Medication Sig Dispensed Refills Start Date [...] mg by mouth daily. DC from [facility] 04/16/2018 Active metroNIDAZOLE 1 % External [...] Active Additional Information Patient taking differently:1 Puff [id number], (Afternoon), Reported on 05/05/2024 Gabapentin 600 MG Oral Tablet (Neurontin)Indica tions:Paresthesia [...] 04/05/2024 Active LORazepam 1 MG Oral Tablet (Ativan)Indicatio ns:Generalized anxiety disorder Take 1/2 to 1 tablet three times a day as needed 60 Tablet 04/27/2024 Active Varenicline Tartrate 1 MG Oral TabletIndications :Tobacco abuse Take 1 Tablet by mouth in the morning and 1 Tablet before bedtime. As directed on box.. 60 Tablet 3 10/26/2023 4 Discontinue d(Medicatio n List Clean Up) documented as of this encounter (statuses as of 05/05/2024) Active Problems Problem Noted Date Diagnosed Date [...] as of this encounter (statuses as of 05/05/2024) Resolved Problems Problem Noted Date Diagnosed Date [...] as of this encounter (statuses as of 05/05/2024) Immunizations Name Administration Dates Next Due COVID-19 mRNA, LNP-s, No Pre serve, 2-Dose Series ([employer]) 01/01/2022,07/12/2021,08/25/2020,07/14 COVID-19, MRNA-LNP, 23-24, P F, 30 MCG/0.3 mL, 12 YRS AND ABOVE, IM ([employer]) 07/17/2023 COVID-19, MRNA-LNP, 24-25, P R, 30MCG/0.3ML, IM, 12YRS AND ABOVE ([employer]) 05/05/2024 Covid-19, Mrna, Lnp-s, Pf, B ivalent, 30 [...] to Q uit: Yes; Counseling Given: Yes Comments:04/25/2024 - Reports occasionally smoking and states she is on [...] Sign Reading Time Taken Comments Blood Pressure 142/80 05/05/2024 1:30 PM EDT Pulse 106 05/05/2024 1:30 PM EDT Temperature 36.4 C (97.6 F) 05/05/2024 1:30 PM ED T Respiratory Rate 18 05/05/2024 1:30 PM EDT Oxygen Saturation 98% 05/05/2024 1:30 PM EDT Inhaled Oxygen Concentration - - Weight 75 kg (165 lb 6.4 oz) 05/05/2024 1:30 PM EDT Height 162.6 cm (5' 4.02") 05/05/2024 1:30 PM ED T Body Mass Index 28.37 05/05/2024 1:30 PM EDT documented in this encounter Functional [...] * Patient Instructions* Danii Castro LPN - 05/05/2024 1:27 PM EDT Patient Instructions - Fall Prevention (This education is for all patients over 65 regardless of symptoms) Remember to take your current medications as prescribed. In order to prevent falls, you are encouraged to: Exercise Utilize assistive/adaptive devices Avoid multifocal lenses when walking Avoid hazards in home Maintain a regular toileting schedule Any questions please contact our office. Preventing Falls in the Home (This education is for all patients over 65 regardless of symptoms) As you get older, falls are more likely. Thats because your reaction time slows. Your muscles and joints may also get stiffer, making them less flexible. Illness, medications, and vision changes can also affect your balance. A fall could leave you unable to live on your own. To make your home safer, follow these tips: Floors Put nonskid pads under area rugs Remove throw rugs Replace worn floor coverings Tack carpets firmly to each step on carpeted stairs. Put nonskid strips on the edges of uncarpeted stairs Keep floors and stairs free of clutter and cords Arrange furniture so there are clear pathways Clean up any spills right away Bathrooms Install grab bars in the tub or shower Apply nonskid strips or put a nonskid rubber mat in the tub or shower Sit on a bath chair to bathe Use bathmats with nonskid backing Lighting Keep a flashlight in each room Put a nightlight along the pathway between the bedroom and the bathroom [employer] Patient Education Copyright 2008 - 2010 [employer] except where otherwise noted Preventing Falls: Exercises to Improve Balance, Flexibility, Strength, and Staying Power (This education is for all patients over 65 regardless of symptoms) Certain types of exercises may help make you less likely to fall. Try the ones below. Or do other exercises that your healthcare provider suggests. Depending on your health, you may need to start slowly. Dont let that stop you. Even small amounts of exercise can help you. Be sure to talk to yourhealthcare provider before starting any exercise program. Improve Balance Many types of exercise can help improve balance. Grant chi and yoga are good examples. Heres another one to try. You can do it anytime and almost anywhere. Stand next to a counter or solid support. Push yourself up onto your tiptoes. Hold for 5 seconds. If you start to lose your balance, hold on to the counter. Rest and repeat 5 times. Work up to holding for 20 to 30 seconds, if you can. Increase Flexibility Being more flexible makes it easier for you to move around safely. Try exercises like the seated hamstring stretch. Sit in a chair and put one foot on a stool. Straighten your leg and reach with both hands down either side of your leg. Reach as far down your leg as you can. Hold for about 20 seconds. Go back to the starting position. Then repeat 5 times. Switch legs. Build Strength Resistance exercises help build strength. You can do them without equipment. Or you can use weights, elastic bands, or special machines. One such exercise is called the biceps curl. You can hold a 1 pound weight or even a can of soup. Do this exercise at least 3 times a week. Strive for everyday. Sit up straight in a chair. Keep your elbow close to your body and your wrist straight. Bend your arm, moving your hand up to your shoulder. Then slowly lower your arm. Repeat 5 times. Switch to the other arm. Build Your Staying Power Aerobic exercises make your heart and lungs stronger so you can keep moving longer. Walking and swimming are two of the best types of exercises you can do. Using a stationary bike is great, too. Find an aerobic exercise that you enjoy. Start slowly and build up. Even 5 minutes is helpful. Aimfor a goal of 30 minutes, at least 3 times a week. You dont have to do 30 minutes in one session. Break it up and walk a little throughout the day. More Helpful Tips Start easy. Slowly work up to doing more. Talk with your healthcare provider about the best exercises for you. Call senior centers or health clubs about exercise programs. If needed, have a family member watch you walk every so often to check your stability. Exercise with a friend. Choose an activity you both enjoy. Try exercises that you can do anytime, anywhere. Here are two examples. Have someone with you when you first try these: Practice walking by placing one foot right in front of the other. Stand up and sit down 10 times. Repeat this throughout the day. [employer] Patient Education Copyright 2008 [employer] except where otherwise noted. Preventing Falls: Moving Safely Using a Cane or Walker (This education is for all patients over 65 regardless of symptoms) Keep the cane away from your feet so you dont trip. A walking aid, such as a cane or walker, can help you stay more independent and avoid falls. Remember to keep your walking aid within easy reach when youre in a chair or in bed. And learn how to use it safely so you dont injure yourself. Using a Cane If you have a stronger side, hold the cane on that side. Get your balance. Move the cane and your weaker leg forward. Support your weight on both the cane and your weaker side. Step with your stronger leg. Start again from step 1. If youre using a folding walker, be sure you know how to lock it open. Check that its locked open before each use. Using a Walker Roll the walker (or lift it, if youre using one without wheels) forward about 12 inches. Step forward with your weaker leg first. Use the walker to help keep your balance. Bring your other foot forward to the center of the walker. Start again from step 1. Helpful Tips Check with your healthcare provider about the right walking aid to use. Ask about a walker with a seat attached. Check the tips of your cane or walker to make sure they have nonskid covers. Move slowly from room to room. Dont groves. Sit down to get dressed. Use a abdiel pack or backpack to keep your hands free. Get help for jobs that mean climbing, even on a stepstool. [employer] Patient Education Copyright 2008 [employer] except where otherwise noted. Urinary Incontinence Plan of Care Documentation: (This education is for all patients over 65 regardless of symptoms) Current medications reconciled. Patient encouraged to: Practice kegal exercises Provide education materials Use the restroom every 2 hours throughout the day Limit caffeine, alcohol, spicy foods and acidic foods Keep a bladder diary Limit fluid intake 3-4 hours before bed Lose weight Prevent constipation Take fluid pills at a time when you can get to the bathroom quickly Control sugar better if diabetic Limit fluid intake to 60 oz. per day Wear support stockings (TEDs)if you have edema Danii Castro LPN 05/05/2024 Kegel Exercises Kegel exercises dont require special clothing or equipment. Theyre easy to learn and simple to do. And if you do them right, no one can tell youre doing them, so they can be done almost anywhere. Your doctor, nurse, or physical therapist can answer any questions you have and help you get started. A Weak Pelvic Floor The pelvic floor muscles may weaken due to aging, and vaginal childbirth, injury, surgery, chronic cough, or lack of exercise. If the pelvic floor is weak, your bladder and other pelvic organs may sag out of place. The urethra may also open too easily and allow urine to leak out. Kegel exercises can help you strengthen your pelvic floor muscles so they can better support the pelvic organs and control urine flow. How Kegel Exercises Are Done Try each of the Kegel exercises described below. When youre doing them, try not to move your leg, buttock, or stomach muscles. While youre urinating, try to stop the flow of urine. Start and stop it as often as you can. Contract as if you were stopping your urine stream, but do it when youre not urinating. Tighten your rectum as if trying not to pass gas. Contract your anus, but dont move your buttocks. Helpful Hints Do your Kegels as often as you can. The more you do them, the faster youll feel the results. Pick an activity you do often as a reminder. For instance, do your Kegels every time you sit down. Tighten your pelvic floor before you sneeze, get up from a chair, cough, laugh, or lift. This protects your pelvic floor from injury and can help prevent urine leakage. Try to hold each Kegel for a slow count to five. You probably wont be able to hold them for thatlong at first, but keep practicing. It will get easier as your pelvic floor gets stronger. Eventually, special weights that you place in your vagina may be recommended to help make your Kegels even more effective. [employer] Patient Education Copyright 2009 - 2010 [employer] except where otherwise noted. Here are some helpful tips for your urinary incontinence: (This education is for all patients over 65 regardless of symptoms) Practice Kegel exercises Use the restroom every 2 hours throughout the day Limit caffeine, alcohol, spicy foods, and acidic foods Keep a bladder diary Limit fluid intake 3-4 hours before bed Lose weight Prevent constipation Take fluid pills at a time when can get to the bathroom quickly Control sugar better if diabetic Limit fluid intake to 60 oz. per day Any questions, please feel free to contact our office. ~~PATIENT INSTRUCTIONS FOR FLU SHOT~~ Possible side effects of influenza vaccine, (flu shot), are usually mild and include: 1. Soreness or redness at injection site 2. Low grade fever 3. Body aches You may use Tylenol/Acetaminophen as needed for these symptoms. LET YOUR DOCTOR KNOW IMMEDIATELY IF YOU HAVE DIFFICULTY BREATHING OR SWALLOWING, EXPERIENCE ITCHINGOF FEET OR HANDS, HAVE SWELLING OF EYES, FACE OR INSIDE OF NOSE. documented in this encounter Progress Notes * Ct Morales, DO - 05/05/2024 1:43 PM EDT SUBJECTIVE: Chief Complaint Patient presents with Hospital Follow-Up Medication Administration Flu and/or Pneumo Inj HPI: Malika Gregory is a 68 year old female who presents today for hospital follow-up. Pt was initially admitted on 04/19 to [facility] with COPD exacerbation and atypical pneumonia vs inflammatory bronchitis. She was treated with azithromycin and steroids. 2-step showed that she would require oxygen at D/C. She was discharged to home on 04/21. Pt then returned to the ED on 05/01 with weakness. She was found to have an alcohol level near 290 and a slightly low potassium. Otherwise, work-up negativeand she was discharged to home. Pt notes that she is doing ok. She is tired. She feels that her breathing is at baseline. She continues to smoke about 5 cigarettes a day. Understands that this is dangerous with her oxygen. She is still drinking. Not ready to quit. She states she is drinking it "slower" than before. She notes thather heart is racing at times. HR seems to be up more when she is walking around. PHM: Patient Active Problem List Diagnosis Dyslipidemia, [...] Capsule by mouth. Three times a week magnesium chloride ER (MAG-64) 64 MG TBEC Take 125 mg by mouth daily. ABIGAIL from [facility] metroNIDAZOLE 1 % External Gel (Metrogel) Apply topically to affected area 2 times a day. To affected area. 30 g 5 Famotidine 20 MG Oral Tablet (Pepcid) TAKE ONE TABLET BY MOUTH IN THE MORNING AND TAKE ONE TABLET BY MOUTH BEFORE BEDTIME (Patient taking differently: Takes at bedtime only.) 180 Tablet 1 DULoxetine HCl 30 MG Oral Capsule Delayed Release Particles (Cymbalta) Take 1 Capsule by mouth in the morning do not cut, crush or chew. 100 Capsule 1 Thiamine HCl 100 MG Oral Tablet (vitamin B-1) Take 1 Tablet by mouth in the morning. 90 Tablet 1 Albuterol Sulfate HFA 108 (90 Base) MCG/ACT Inhalation Aerosol Solution INHALE 2 PUFFS EVERY 4 HOURS NEEDED FOR WHEEZING. 18 g 2 Rqzgwazmerb-Hmauxsnui-Tmouzz 100-62.5-25 MCG/ACT Aerosol Powder Breath Activated (Trelegy Ellipta) Inhale 1 Puff by mouth in the morning. (Patient taking differently: Inhale 1 Puff by mouth every afternoon. (Afternoon)) 180 Each 3 Gabapentin 600 MG Oral Tablet (Neurontin) Take 1 Tablet by mouth in the morning and 1 Tablet beforebedtime. 200 Tablet 1 Atorvastatin Calcium 20 MG Oral Tablet (Lipitor) Take 1 Tablet by mouth in the morning. 100 Tablet 0 Pantoprazole Sodium 20 MG Oral Tablet Delayed Release (Protonix) TAKE ONE TABLET BY MOUTH IN THE MORNING 30 MINUTES BEFORE THE FIRST MEAL OF THE DAY DO NOT CUT CRUSH OR CHEW 90 Tablet 1 LORazepam 1 MG Oral Tablet (Ativan) Take 1/2 to 1 tablet three times a day as needed 60 Tablet 0 Levalbuterol HCl 1.25 MG/3ML Inhalation Nebulization Solution (Xopenex) Inhale 1 Ampule via nebulizer every 6 hours as needed for Shortness of Breath or Wheezing. No current facility-administered medications for this visit. [...] by Jelly Jean Baptiste MD at ENDOSCOPY [facility] COLONOSCOPY, DIAGNOSTIC (RECTUM) 11/15/2015 COLONOSCOPY FLEXIBLE PROXIMAL DIAGNOSTIC performed by Jaime Jean Baptiste MD at ENDOSCOPY [facility] COLORECTAL CANCER SCREEN; COLON 2001 colonoscopy- 8 yrs CONIZATION OF CERVIX 01/1995 path neg, Dr Romero DENTAL SURGERY PROCEDURE NEC age 18 wisdom teeth x 4 EGD, FLEXIBLE, DIAGNOSTIC 12/21/2015 normal bx, HH/ESOPHAGOGASTRODUODENOSCOPY (EGD), FLEXIBLE, TRANSORAL, DIAGNOSTIC performed by Jaime Jean Baptiste MD at ENDOSCOPY [facility] EGD, FLEXIBLE, DIAGNOSTIC 05/27/2018 hiatal hernia/ESOPHAGOGASTRODUODENOSCOPY (EGD), FLEXIBLE, TRANSORAL, DIAGNOSTIC performed by Jaime Jean Baptiste MD at ENDOSCOPY [facility] EGD, FLEXIBLE, DIAGNOSTIC N/A 01/20/2023 LA grade C reflux esophagitis/hiatal hernia/focal edema GEJ/ESOPHAGOGASTRODUODENOSCOPY (EGD), FLEXIBLE, TRANSORAL, DIAGNOSTIC performed by Barb Dunn MD at ENDOSCOPY [facility] EGD, FLEXIBLE, DIAGNOSTIC N/A 01/23/2023 submucosal nodule with small ulcer/biopsies show inflammation compatible with ascess/ESOPHAGOGASTRODUODENOSCOPY (EGD), FLEXIBLE, TRANSORAL, DIAGNOSTIC performed by Barb Dunn MD at OR [facility] EGD, FLEXIBLE, DIAGNOSTIC 06/22/2023 normal/ESOPHAGOGASTRODUODENOSCOPY (EGD), FLEXIBLE, TRANSORAL, DIAGNOSTIC performed by Barb Dunn MD at ENDOSCOPY [facility] EGD, W/ENDOSCOPIC US 05/27/2018 normal/ESOPHAGOGASTRODUODENOSCOPY (EGD), FLEXIBLE, TRANSORAL, ENDOSCOPIC ULTRASOUND performed by Jaime Jean Baptiste MD at ENDOSCOPY [facility] EGD, W/ENDOSCOPIC US 11/18/2023 ESOPHAGOGASTRODUODENOSCOPY (EGD), FLEXIBLE, TRANSORAL, ENDOSCOPIC ULTRASOUND performed by Dawit Mckay MD at ENDOSCOPY [facility] EYE MUSCLE SURGERY FOLLOWUP age 3 and age 8 R eye INJECT DX/THER SUBSTANCE INTERLAMINAR LUMBAR/SACRAL W IMAGE GUIDE 12/31/2017 INJECTION SPINE LUMBAR OR SACRAL performed by [place] Carlyle Huston DO at OR [facility] INJECT DX/THER SUBSTANCE INTERLAMINAR LUMBAR/SACRAL W IMAGE GUIDE 01/28/2018 INJECTION SPINE LUMBAR OR SACRAL performed by Riaz Huston DO at OR [facility] IR ASPIRATION ABSCESS/COLLECTION 01/27/2020 IR ASPIRATION ABSCESS/COLLECTION 01/23/2023 IR BIOPSY 10/27/2022 PARTIAL COLECTOMY W/ANASTOMOSIS N/A 01/14/2023 PARTIAL COLECTOMY WITH ANASTOMOSIS performed by Jeffrey Mesa MD at OR [facility] REMOVAL OF APPENDIX N/A 01/14/2023 APPENDECTOMY performed by Jeffery Mesa MD at OR [facility] REMOVAL OF SMALL INTESTINE W/FUSION N/A 01/14/2023 ENTERECTOMY SMALL BOWEL RESECTION performed by Jeffrey Mesa MD at OR [facility] REMOVAL OF VULVA, 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 Declines additional support for smoking cessation at this time. Substance Use Topics Alcohol use: Yes Comment: Admits to drinking a cocktail daily. Vaping/E-Cigarette Use Vaping/E-Cigarette Use Never User Passive Exposure No Vaping/E-Cigarette Substances Nicotine No Other No Flavoring No THC No Cannabidiol (CBD) No Vaping/E-Cigarette Devices Disposable No Pre-filled or Refillable Cartridge No Refillable Tank No Pre-filled Pod No REVIEW OF SYSTEMS: Review of Systems Constitutional: Positive for fatigue. Negative for chills, fever and unexpected weight change. Respiratory: Positive for wheezing. Negative for cough, chest tightness and shortness of breath. Cardiovascular: Negative for chest pain, palpitations and leg swelling. Gastrointestinal: Negative for abdominal pain, constipation, diarrhea, nausea and vomiting. Musculoskeletal: Negative for arthralgias, gait problem and joint swelling. Skin: Negative for color change, pallor and rash. OBJECTIVE: BP 142/80 (BP Site: Left Arm, BP Position: Sitting, BP Cuff Size: Regular) | Pulse 106 | Temp 36.4 C (97.6 F) (Tympanic) | Resp 18 | Ht 1.626 m (5' 4.02") | Wt 75 kg (165 lb 6.4 oz) | LMP 09/08/2007 | SpO2 98% | BMI 28.37 kg/m | BSA 1.84 m PHYSICAL EXAM: Physical Exam Constitutional: General: [...] oriented to person, place, and time. ASSESSMENT/PLAN: (Z09) Hospital discharge follow-up (primary encounter diagnosis) (J18.9) Atypical pneumonia Plan: PULMONARY REFERRAL OP Pt will f/u with pulmonary. Currently on 3L with activity and 2L at rest. Encouraged to stop smoking. Understands danger with oxygen in the home. Has finished antibiotic and prednisone. (F10.20) Alcohol dependence, continuous (HCC) Plan: Pt not yet ready to quit. Reviewed options if she were to choose to decrease/stop alcohol use. (R00.0) Tachycardia Plan: EXTERNAL EKG 8 TO 15 DAYS, EXTERNAL EKG 8 TO [address] ZIO. Will await results. HR to 120s with activity. (J44.9) COPD, group C, by GOLD 2017 classification (HCC) J96.11) Chronic hypoxemic respiratory failure (HCC) Plan: PULMONARY REFERRAL OP Pt will see pulmonary for further evaluation. Continue inhalers. Continue on oxygen. (F17.200) Tobacco use disorder Plan: Pt continues to smoke. Did not like Chantix. Has been cutting back. (Z79.899) Encounter for long-term (current) use of medications Plan: HEMOGLOBIN A1C, VITAMIN B12, MAGNESIUM, COMPREHENSIVE METABOLIC PANEL, CBC WITH WBC DIFFERENTIAL, LIPID PANEL WITH DIRECT LDL IF TG IS HIGH Lab studies today. (Z23) Need for prophylactic vaccination and inoculation against influenza Plan: INFLUENZA VAC., TRIVALENT, HD, PF, 65 AND ABOVE, 0.5 ML IM (FLUZONE HD) Vaccine given. See admin record. (Z23) Need for COVID-19 vaccine Plan: COVID-19, MRNA-LNP, PF, 24-25, 30MCG/0.3ML, IM, 12YRS AND ABOVE ([employer]) Vaccine given. See admin record. (Z13.9) Risk and functional assessment Plan: See nursing note. Follow-up: 3 months Total time today including reviewing chart before the visit, pertinent labs, imaging reports, face to face time, and documentation time was [address] Morales DO * Danii Castro LPN - 05/05/2024 1:28 PM EDT PRE - ADMINISTRATION DOCUMENTATION Are you experiencing any cold symptoms or fever? No Have you had Guillain-[place] Syndrome (an illness that causes paralysis) within the last 6 weeks? No Have you had the flu shot in the past? YES Have you ever had a reaction to the flu shot? No Danii Castro LPN, 05/05/2024 1:28 PM Immunization Administration Documentation Time Out Procedure Performed: Yes Patient Identified (Ask Name/Date of ): Yes Does the patient have a fever greater than 101 degrees today? No Patient allergic to latex? No C Stock: No Immunization(s) verified: Yes, Immunization Name: COVID and Flu, VIS Sheet(s) given: Yes Verified Side and Site: Yes Verified Shot(s) with Parent(s)/Patient: Yes documented in this encounter Nursing Notes * Danii Castro LPN - 05/05/2024 3:13 PM EDT 05/05/24 3:26 PM Date to Remove: 05/19/2024 Time to Remove: 3:25 p.m. Serial Number: [id number] Ordering Provider: Dr. Ct Castro LPN Zio patch applied in clinic, as per provider orders. Patient instructed on use. * Danii Castro LPN - 05/05/2024 2:29 PM EDT Pulse with exercise. Walked approx 4 minutes with pulse rate ranging from 103-122. * Danii Castro LPN - 05/05/2024 1:27 PM EDT Patient here for hospital discharge follow up visit. Hospitalized at [facility] for pneumonia and COPD. No has oxygen. documented in this encounter Plan of Treatment Upcoming Encounters Date Type Department Care Team (Late st Contact Info) Description 06/20/2024 3:00 PM EST Office Visit Pulmonary Medicine, [facility] 132 [facility] [place] [address] [facility] [address] [facility] [address] 06/24/2024 10:00 AM EST Office Visit [facility] 200 [facility], [place] [address] Paloma Vidales MD [address] [place], [place] [address] [address] 07/14/2024 10:30 AM EST Office Visit [facility] 200 [facility], [place] [address] Paloma Vidales MD [address] [place] [address] [place] [address] 07/19/2024 11:40 AM EST Office Visit Dermatology[address], [place] [address] Mellissa Blanco PA-C [address] [place] [address] [place] [address] 07/26/2024 10:00 AM EST Office Visit [facility] 200 [place] [address] Paloma Vidales MD 200 [place] [address] 08/05/2024 3:00 PM EST Office Visit Family Practice [address] [place] [address], [place] 293 [place] [address] Ct Morales DO 293 [place] [address] Pending Results Name Type Priority Associated Diagnoses Date /Time HEMOGLOBIN A1C Lab Routine Encounter for long-term (current) use of medications 05/05/2024 2:50 PM EDT VITAMIN B12 Lab Routine Encounter for long-term (current) use of medications 05/05/2024 2:50 PM EDT MAGNESIUM Lab Routine Encounter for long-term (current) use of medications 05/05/2024 2:50 PM EDT COMPREHENSIVE METABOLIC PANEL Lab Routine Encounter for long-term (current) use of medications 05/05/2024 2:50 PM EDT CBC WITH WBC DIFFERENTIAL Lab Routine Encounter for long-term (current) use of medications 05/05/2024 2:50 PM EDT LIPID PANEL WITH DIRECT LDL IF TG IS HIGH Lab Routine Encounter for long-term (current) use of medications 05/05/2024 2:50 PM EDT CBC Lab Routine Encounter for long-term (current) use of medications 05/05/2024 2:50 PM EDT DIFFERENTIAL, AUTOMATED Lab Routine Encounter for long-term (current) use of medications 05/05/2024 2:50 PM EDT Scheduled Orders Name Type Priority Associated Diagnoses Orde r Schedule EXTERNAL EKG 8 TO 15 DAYS Holter Routine Tachycardia Expected: 05/06/2024 (Approximate), Expires: 05/05/2025 Scheduled Procedures Name Priority Associated Diagnoses Date/Ti me COLONOSCOPY FLEXIBLE PROXIMA L DIAGNOSTIC Recall Encounter for screening colonoscopy Scheduled Referrals Name Type Priority Associated Diagnoses Orde r Schedule PULMONARY REFERRAL OP Referral Within 30 days (routine) COPD, group C, by GOLD 2017 classification (HCC) Chronic hypoxemic respiratory failure (HCC) Atypical pneumonia Ordered: 05/05/2024 Health Maintenance Due Date Last Done Comments DISCUSS TOBACCO CESSATION (REFER TO SMARTSET #0637) 1955 Cologuard 1998 Fecal Occult Blood Test 1998 Sigmoidoscopy 1998 Hepatitis B Vaccine (1 of 3 - Risk 3-dose series) 2013 Adult Wellness Visit 2019 *ADVANCE DIRECTIVE NOT ON FILE 01/20/2022 HbA1c 01/16/2024 01/15/2023, 08/13, 06/14/2021, Additional history exists GFR 01/26/2024 01/25/2023, 01/10, 01/23/2023, Additional history exists Mammogram 05/06/2024 12/31/2022, 12/12, 10/18/2021, Additional history exists Postponed from 01/01/2024 (Patient Declined After Education) O2 ASSESSMENT COMPLETED IN PAST YEAR FOR COPD 11/17/2024 11/18/2023 Albumin/Creatinine Ratio 01/17/2025 01/17/2022, 08/13 Depression Monitoring 04/25/2025 04/25/2024 DXA Scan 11/19/2025 11/19/2018 Colonoscopy 12/20/2025 12/21/2015, [...] history exists Influenza Vaccine (FLU shot) Completed 05/05/2024, 04/10/2023, 04/16/2022, Additional history exists HPV (Gardasil) Vaccine Aged Out No lo nger eligible based on patient's age to complete this topic MENINGOCOCCAL (MENACTRA/MENVEO) Aged Out No longer eligible based on patient's age to complete this topic documented as of this encounter Medical Devices Not on filedocumented as of this encounter Visit Diagnoses Diagnosis Hospital discharge follow-up- Primary Other follow-up examination Atypical pneumonia Pneumonia, organism unspecified Alcohol dependence, continuous (HCC) Other and unspecified alcohol dependence, continuous drinking behavior Tachycardia Tachycardia, unspecified COPD, group C, by GOLD 2017 classification (HCC) Chronic hypoxemic respiratory failure (HCC) Chronic respiratory failure Tobacco use disorder Encounter for long-term (current) use of medications Encounter for long-term (current) use of other medications Need for prophylactic vaccination and inoculation against influenza Need for COVID-19 vaccine Risk and functional assessment Screening for unspecified condition documented in this encounter Advance Directives Documents on File Type Date Recorded Patient Facilities Supervisor Expl anation Power of Clay Dry Press Mixer Operator 01/11/2023 Porter Gregory POWER OF TRUCK GREASER * Full Code (Latest Code Status on [...] Agen t (per Health Care Power of Clay Dry Press Mixer Operator document) Care Teams Supervisor Audit Clerks Relationship Specialty Start Date End Date Ct Morales DO [address] [place] [address] PCP - General Family Medicine 12/31/23 documented as of this encounter
--- OUTSIDE RECORDS SUMMARY | 2024-05-25 16:17 | External Medical Summary | Summary of Care ---
Author Name Unknown Organization [facility] Address [address] [place] [address] Phone [phone] Care Team Providers Care Hazardous Materials Waste Technician Name Role Phone Ct Morales DO Primary Care Provider [phone] Reason for Visit * Reason Comments Dosage Adjustment In Person (Anticoag Cl inic) Medication Management Encounter Details Date Type Department Care Team (Late st Contact Info) Description 05/05/2024 1:20 PM EDT Pharmacy Family Practice 65 [facility] 293 [place] [address] College, Pharmacist [address] [address] Medication management* Allergies No known active allergiesdocumented as of this encounter (statuses as of 05/10/2024) Medications Medication Sig Dispensed Refills Start Date [...] mg by mouth daily. DC from [facility] 04/16/2018 Active metroNIDAZOLE 1 % External [...] Active Additional Information Patient taking differently:1 Puff [id number], (Afternoon), Reported on 05/05/2024 Gabapentin 600 MG [...] Shortness of Breath or Wheezing. 04/21/2024 Active Varenicline Tartrate 1 MG Oral TabletIndications :Tobacco abuse Take 1 Tablet by mouth in the morning and 1 Tablet before bedtime. As directed on box.. 60 Tablet 3 10/26/2023 4 Discontinue d(Medicatio n List Clean Up) Azithromycin 250 MG Oral Tablet (Zithromax) Take 1 Tablet by mouth in the morning. In the morning.. 04/21/2024 4 Discontinue d(Medicatio n List Clean Up) predniSONE 20 MG Oral Tablet (Deltasone) Take 2 Tablets by mouth in the morning. 04/21/2024 4 Discontinue d(Medicatio n List Clean Up) documented as of this encounter (statuses as of 05/10/2024) Active Problems Problem Noted Date Diagnosed Date [...] as of this encounter (statuses as of 05/10/2024) Resolved Problems Problem Noted Date Diagnosed Date [...] as of this encounter (statuses as of 05/10/2024) Immunizations Name Administration Dates Next Due COVID-19 mRNA, LNP-s, No Pre serve, 2-Dose Series ([employer]) 01/01/2022,07/12/2021,08/25/2020,07/14 COVID-19, MRNA-LNP, 23-24, P F, 30 MCG/0.3 mL, 12 YRS AND ABOVE, IM ([facility] [place]) 07/17/2023 COVID-19, MRNA-LNP, 24-25, P R, 30MCG/0.3ML, IM, 12YRS AND ABOVE ([facility] 05/05/2024 Covid-19, Mrna, Lnp-s, Pf, B ivalent, [...] as of this encounter Progress Notes * Luis Pike, Gina Vincent, [facility] - 05/05/2024 12:30 PM EDT Medication Therapy Disease Management [facility] - Medication Reconciliation Encounter Type: discussed with patient Med Bottles Available for Review: no Med Rec Reason: ALVIN Prescription insurance information: GHP Gold Do you have any other prescription coverage: Yes, PACE Preferred pharmacy: [facility] ([facility]) [x] Problem list reviewed [x] Allergies reviewed and updated if needed [x] Drug interaction check completed [x] HEDIS list addressed Immunizations: Facilitated Administration Of: Influenza and COVID Date of Hospital Admission/Primary Diagnosis: 04/19/24 - [facility] for COPD/pneumonia, then ED 05/01 withweakness/intoxication Date of Discharge from Hospital: 04/21/24 Medication changes during admission/on discharge: Added: azithromycin and prednisone (completed both), levoalbuterol instead of albuterol nebs Modified: none Discontinued: none Does the patient currently have all of their medications in their home?: Yes Labs/Vitals/Risk Scores: The 10-year ASCVD risk score (Maria C BARAJAS, et al., 2019) is: 16.3% Values used to calculate the score: Age: 68 years Sex: Female Is Non- : No Diabetic: No Tobacco smoker: Yes Systolic Blood Pressure: 130 mmHg Is BP treated: No HDL Cholesterol: 51 mg/dL Total Cholesterol: 221 mg/dL BP Readings from Last 3 Encounters: 02/05/24 130/72 11/18/23 123/68 11/06/23 130/76 Recent Labs Units 01/15/23 0334 08/28/22 1618 HEMOGLOBIN A1C - [facility] % 6.6* 6.2* Recent Labs Units 01/25/23 0457 01/24/23 0433 01/23/23 0455 ESTIMATED GLOMERULAR FILTRATION RATE - [facility] mL/min 72 79 83 Creatinine clearance cannot be calculated (Patient's most recent lab result is older than the maximum 180 days allowed.) Assessment & Plan: Medication discrepancies identified: Patient completed antibiotic and prednisone. - Reports that she doesn't think levoalbuterol is doing much - taking famotidine once daily has been adequate Dose/frequency of medications appropriate for current renal function? yes Other medication problems identified: patient reports wanting to decrease meds - wondering about tapering gabapentin. Advised that she just reports that it is helping her pain. Would recommend instead stopping PPI or H2 and maximizing the other. Patient wants to keep it the same for now Patient education provided: regarding inhaler/nebulizer use and when to use each. Bring inhaler with her at all times. Does use spacer with her inhaler. Discussed smoking cessation with patient Referral pended for follow up management of: N/A Summary- Changes & Recommendations: Med rec completed with patient and discussed with pcp. I spent a total of 10-19 minutes (exact time 18 mins) on the date of service in preparation, delivery, and documentation of the care provided to Malika Gregory excluding any time spent in the performance of separately billed services or time spent by another provider/QHP. Gina Vera [facility] Clinical Pharmacist - Proofing Machine Operator Medication Therapy Management Clinic 05/05/2024, 12:30 PM documented in this encounter Plan of Treatment Upcoming Encounters Date Type Department Care Team (Late st Contact Info) Description 06/20/2024 3:00 PM EST Office Visit Pulmonary Medicine, [facility] 132 [facility] [place] [address] Devan Blue MD [address] [place] [address] 06/24/2024 10:00 AM EST Office Visit [facility] 200 [facility] [place] [address] Paloma Vidales MD [address] [place] [address] [place] [address] 07/19/2024 11:40 AM EST Office Visit Dermatology[address] [place] [address] Mellissa Blanco, PA-[address] [place] [address] 07/26/2024 10:00 AM EST Office Visit [facility] 200 [facility] [place] [address] Paloma Vidales MD [address] [place], [place] [address] [address] 08/05/2024 3:00 PM EST Office Visit Family Practice 65 [facility], [place] 293 [facility], [place] [address] Ct Morales DO 293 [facility] [place] [address] Scheduled Procedures Name Priority Associated Diagnoses Date/Ti me COLONOSCOPY FLEXIBLE PROXIMA L DIAGNOSTIC Recall Encounter for screening colonoscopy Health Maintenance Due Date Last Done Comments DISCUSS TOBACCO CESSATION (REFER TO SMARTSET #9209) 1955 Cologuard 1998 Fecal Occult Blood Test [...] as of this encounter Visit Diagnoses Diagnosis Medication management- Primary Encounter for long-term (current) use of other medications documented in this encounter Advance Directives Documents on File Type Date Recorded Patient Aircraft Maintenance Instructor Expl anation Power of Flex O Writer Operator 01/11/2023 Porter Gregory POWER OF REFINERY OPERATOR VISBREAKING * Full Code (Latest Code Status on [...] Agen t (per Health Care Power of Flex O Writer Operator document) Care Teams Hazardous Materials Waste Technician Relationship Specialty Start Date End Date Ct Morales DO [address] [place] [address], [place] [address] PCP - General Family Medicine 12/31/23 documented as of this encounter
--- OUTSIDE RECORDS SUMMARY | 2024-05-25 16:18 | External Medical Summary ---
Author Name Unknown Address Unknown Organization [id number]:LABORATORY [facility] - [address] [place] [address] Laboratory Report Ordering Provider Test Date Status SUNDAR ROBLES 05/05/2024 14:50:48 Final Observation Date Value Abnormality Reference (Units ) Status Vitamin B12 05/05/2024 14:50:48 [phone] (pg/mL) Final Performing Location LABORATORY [facility] - [address] [place] [address]
--- OUTSIDE RECORDS SUMMARY | 2024-05-25 16:18 | External Medical Summary ---
Author Name Unknown Address Unknown Organization [id number]:LABORATORY [facility] - [address] [facility] [address] Laboratory Report Ordering Provider Test Date Status SUNDAR ROBLES 05/05/2024 14:50:48 Final Observation Date Value Abnormality Reference (Units ) Status Triglyceride 05/05/2024 14:50:48 190 Above high normal <=174 (mg/dL) Final Triglyceride Reference Range s (mg/dL):
<150 Acceptable
150-174 Borderline high
175-499 High
>=500 Very high Cholesterol 05/05/2024 14:50:48 196 <200 (mg /dL) Final Total Cholesterol Reference Ranges (mg/dL):
<200 Desirable
200-239 Borderline high
>=240 High HDL 05/05/2024 14:50:48 59 >49 (mg/dL ) Final HDL Cholesterol Reference Ra nges (mg/dL):
>=60 High (Desirable)
<50 Low (Undesirable) For Females
<40 Low (Undesirable) For Males NON-HDL CHOLESTEROL 05/05/2024 14:50:48 137 <=159 (mg/dL) Final Non-HDL Cholesterol Referenc e Range (mg/dL):
<100 Target level for high risk ASCVD patient
<130 Optimal for general population
130-159 Near optimal for general population
160-189 Borderline High
190-219 High
>=220 Very High LDL, (calculated) 05/05/2024 14:50:48 99 <= 129 (mg/dL) Final LDL Cholesterol Reference Ra nges (mg/dL):
<70 Target level for high risk ASCVD patient
<100 Optimal for general population
100-129 Near optimal for general population
130-159 Borderline high
160-189 High
>=190 Very high Performing Location LABORATORY [facility] - [address] [facility] [address]
--- OUTSIDE RECORDS SUMMARY | 2024-05-25 16:18 | External Medical Summary ---
Author Name Unknown Address Unknown Organization [id number]:LABORATORY [facility] - [address] [facility] [address] Laboratory Report Ordering Provider Test Date Status SUNDAR ROBLES 05/05/2024 14:50:48 Final Observation Date Value Abnormality Reference (Units ) Status BUN 05/05/2024 14:50:48 14 6-20 (mg/dL) Final Creatinine 05/05/2024 14:50:48 0.7 0.5-1.0 (mg/dL) Final Glomerular filtration rate/1.73 sq M.predicted [Volume Rate/Area] in Serum, Plasma or Blood by Creatinine-based formula (CKD-EPI) 05/05/2024 14:50:48 87 >=60 (mL/min) Final eGFR is calculated based on the CKD-EPI 2020 equation. Sodium 05/05/2024 14:50:48 136 135-146 (m mol/L) Final Potassium 05/05/2024 14:50:48 4.5 3.5-5.1 (m mol/L) Final Cl 05/05/2024 14:50:48 96 Below low normal 98- 107 (mmol/L) Final CO2 05/05/2024 14:50:48 28 22-32 (mmo l/L) Final Anion gap 05/05/2024 14:50:48 12 7-15 (mmol /L) Final Glucose 05/05/2024 14:50:48 164 Above high normal 70 -120 (mg/dL) Final Albumin 05/05/2024 14:50:48 4.3 3.8-5.0 (g /dL) Final AST (Aspartate aminotransferase) 05/05/2024 14:50:48 73 Above high normal 10-35 (U/L) Final Alk Phos 05/05/2024 14:50:48 157 Above high normal 35 -130 (U/L) Final Bilirubin, Total 05/05/2024 14:50:48 1.0 <=1 .2 (mg/dL) Final Calcium 05/05/2024 14:50:48 9.4 8.4-10.2 ( mg/dL) Final Protein 05/05/2024 14:50:48 7.2 6.0-8.3 (g /dL) Final ALT (Alanine aminotransferase) 05/05/2024 14:50:48 77 Above high normal 10-35 (U/L) Final Performing Location LABORATORY [facility] - [address] [facility] [address]
--- OUTSIDE RECORDS SUMMARY | 2024-05-25 16:18 | External Medical Summary ---
Author Name Unknown Address Unknown Organization [id number]:LABORATORY [facility] - [facility] [address] [facility] [address] Laboratory Report Ordering Provider Test Date Status SUNDAR ROBLES 05/05/2024 14:50:48 Final Observation Date Value Abnormality Reference (Units ) Status WBC, Total 05/05/2024 14:50:48 6.49 4.00-10.80 (K/uL) Final RBC 05/05/2024 14:50:48 3.82 3.85-5.15 (M/uL) Final Hemoglobin 05/05/2024 14:50:48 13.7 12.0-15.3 (g/dL) Final HCT 05/05/2024 14:50:48 42.7 36.0-45.2 (%) Final MCV 05/05/2024 14:50:48 111.8 81.5-97.5 (fL) Final MCH 05/05/2024 14:50:48 35.9 27.0-34.0 (pg) Final MCHC 05/05/2024 14:50:48 32.1 32.0-36.0 (g/dL) Final RDW 05/05/2024 14:50:48 12.7 11.5-15.5 (%) Final Platelets 05/05/2024 14:50:48 196 140-400 (K/uL) Final MPV 05/05/2024 14:50:48 12.3 6.6-11.1 (fL) Final Nucleated erythrocytes/100 leukocytes [Ratio] in Blood by Automated count 05/05/2024 14:50:48 0 <=0 (/100 WBCs) Final Performing Location LABORATORY [facility] - [address] [place] [address]
--- OUTSIDE RECORDS SUMMARY | 2024-05-25 16:18 | External Medical Summary | Summary of Care ---
Author Name Unknown Organization [facility] Address [address] [place] [address] Phone [phone] Care Team Providers Care Escrow Representative Name Role Phone Ct Morales DO Primary Care Provider Reason for Visit * Reason Onset Date Comments Information 05/03/2024 Er follow up josué l 05/03; 05/04 Encounter Details Date Type Department Care Team (Late st Contact Info) Description 05/03/2024 Telephone Family Practice [address] [place] [address] [place] [phone] Ct Morales DO 293 [place] [address] Information (Er follow up call 05/03; 05/04) Allergies No known active allergiesdocumented as of this encounter (statuses as of 05/04/2024) Medications Medication Sig Dispensed Refills Start Date [...] mouth daily. DC from [facility] 04/16/2018 Active metroNIDAZOLE 1 % External [...] day as needed 60 Tablet 04/27/2024 Active documented as of this encounter (statuses as of 05/04/2024) Active Problems Problem Noted Date Diagnosed Date [...] as of this encounter (statuses as of 05/04/2024) Resolved Problems Problem Noted Date Diagnosed Date [...] as of this encounter (statuses as of 05/04/2024) Immunizations Name Administration Dates Next Due COVID-19 mRNA, LNP-s, No Pre serve, 2-Dose Series ([employer]) 01/01/2022,07/12/2021,08/25/2020,07/14 COVID-19, MRNA-LNP, 23-24, P F, 30 MCG/0.3 mL, 12 YRS AND ABOVE, IM ([employer]) 07/17/2023 Covid-19, Mrna, Lnp-s, Pf, B ivalent, [...] No 04/25/2024 Does the household have a [facility] source of income? (Household - for ages [...] encounter Miscellaneous Notes * Telephone Encounter - Danii Castro LPN - 05/04/2024 2:56 PM EDT Call placed to patient. She states she is feeling well today. Has ED f/u appt scheduled with Dr. Morales tomorrow and states she will be there. No questions at this time. * Telephone Encounter - Fang Ellison OSA - 05/03/2024 3:02 PM EDT Patient returning our call * Telephone Encounter - Eva Harvey LPN - 05/03/2024 2:36 PM EDT Emergency Department Follow Up: When was patient seen: 05/01/2024 Which ED: [facility] What were they seen for: weakness for past week What testing did they have done: lab work What did ED think was wrong (dx): alcohol intoxication, hypokalemia Any new medications prescribed: non How is patient feeling today: Patient concerns today: Called, left message for patient to return call. Thank you documented in this encounter Plan of Treatment Upcoming Encounters Date Type Department Care Team (Late st Contact Info) Description 05/05/2024 1:20 PM EDT Pharmacy Family Practice 65 [facility] [address] [place] [address] College, Pharmacist [address] [place] [address] 05/05/2024 1:40 PM EDT Office Visit Family Practice [address] [place] 293 [place] [address] [address] Morales DO 293 [place] [address] 06/24/2024 10:00 AM EST Office Visit [facility] [address] [place] [address] Paloma Vidales MD [address] [place] [address], [place] [address] 07/14/2024 10:30 AM EST Office Visit [facility] [address] [place] [address] Paloma Vidales MD [address] [place] [address], [place] [address] 07/19/2024 11:40 AM EST Office Visit [address] [address] Mellissa Blanco, PA-[address] [place] [address] 07/26/2024 10:00 AM EST Office Visit [facility] [address] [place] [address] Paloma Vidales MD [address] [place] [address], [place] [address] Scheduled Procedures Name Priority Associated Diagnoses Date/Ti me COLONOSCOPY FLEXIBLE PROXIMA L DIAGNOSTIC Recall Encounter for screening colonoscopy Health Maintenance Due Date Last Done Comments DISCUSS TOBACCO CESSATION (REFER TO SMARTSET #5448) 1955 Cologuard 1998 Fecal Occult Blood Test [...] 2024 04/10/2023, 04/16/2022, 06/14/2021, Additional history exists O2 ASSESSMENT COMPLETED IN [...] Documents on File Type Date Recorded Patient Admitting Officer Expl anation Power of Football Scout 01/11/2023 Porter Gregory POWER OF EPIC AMBULATORY ANALYSTS * Full Code (Latest Code Status on [...] Agen t (per Health Care Power of Football Scout document) Care Teams Escrow Representative Relationship Specialty Start Date End Date Ct Morales DO [address] [place] [address] PCP - General Family Medicine 12/31/23 documented as of this encounter
--- OUTSIDE RECORDS SUMMARY | 2024-05-25 16:18 | External Medical Summary | Summary of Care ---
Author Name Unknown Organization [facility] Address [address] [place] [address] Phone [phone] Care Team Providers Care Material Specialist Name Role Phone Ct Morales DO Primary Care Provider Encounter Details Date Type Department Care Team (Late st Contact Info) Description 05/02/2024 Telephone Family Practice [address] [place] [address] [place] [address] [address] Morales DO [address] [place] [address] Allergies No known active allergiesdocumented as of this encounter (statuses as of 05/03/2024) Medications Medication Sig Dispensed Refills Start Date [...] mg by mouth daily. DC from [facility] 04/16/2018 Active metroNIDAZOLE 1 % [...] as of this encounter (statuses as of 05/03/2024) Active Problems Problem Noted Date Diagnosed Date [...] as of this encounter (statuses as of 05/03/2024) Resolved Problems Problem Noted Date Diagnosed Date [...] as of this encounter (statuses as of 05/03/2024) Immunizations Name Administration Dates Next Due COVID-19 mRNA, LNP-s, No Pre serve, 2-Dose Series (doxIQ) 01/01/2022,07/12/2021,08/25/2020,07/14 COVID-19, MRNA-LNP, 23-24, P F, 30 MCG/0.3 mL, 12 YRS AND ABOVE, IM ([employer]) 07/17/2023 Covid-19, Mrna, Lnp-s, Pf, B ivalent, [...] No 04/25/2024 Does the household have a [facility] source of income? (Household - for ages [...] Telephone Encounter - Ct Morales DO - 05/03/2024 10:17 AM EDT Noted. Pt apparently intoxicated at presentation as well. * Telephone Encounter - Eva Nguyen RN - 05/02/2024 2:52 PM EDT The patient was contacted in regards to their recent: Emergency Department visit Did patient call the office before going to ER: No When was patient seen: 05/01/2024 Which ED: [facility] What were they seen for: weakness, heart racing What did ED think was wrong (dx): weakness, hypokalemia, alcohol intoxication What testing did they have done: cxr, ekg, and lab work Any new medications prescribed: none When did the ED recommend they follow up: no time specified Is Ed record available: Yes How is patient feeling today: pt states she is feeling better-slept really well last PM-symptoms improved..states she does get periods of fast beating heart and that is when she feels tired/weak. No further episodes since in ER. Pt recently d/c'd fro [facility] 04/19-04/21 for COPD exacerbation. Had hospital f/u with Dr Morales 04/28 but cancelled-appt scheduled for 05/05 for hospital d/c appt and thenwill add for ER f/u also. She will need blood work to recheck her potassium. Pt states she had a potassium supplement while in ER and was given a list of food rich in potassium. Patient concerns today: emphasized importance of following up on 05/05/24 for hosp/ER follow-up. Reminded of calling [address] prior to going to ER-pt verbalized understanding. FYI to Dr Morales. documented in this encounter Plan of Treatment Upcoming Encounters Date Type Department Care Team (Karime schaffer Contact Info) Description 05/05/2024 1:20 PM EDT Pharmacy Family Practice [address] [facility] [address] [facility] [place] [phone] College, Pharmacist [address] [place] [address] 05/05/2024 1:40 PM EDT Office Visit Family Practice [address] [facility] [address] [facility] [place] [phone] Ct Morales, [address] [facility] [address] 06/24/2024 10:00 AM EST Office Visit [facility] Surgery [address] [address] Palmoa Vidales MD [address] [place] [address] 07/14/2024 10:30 AM EST Office Visit [facility] Surgery [address] [place] [address] Paolma Vidales MD [address] [place] [address] [place] [address] 07/19/2024 11:40 AM EST Office Visit [address] [address] Mellissa Blanco PA-C [address] [place] [address] MINDI Jean [address] 07/26/2024 10:00 AM EST Office Visit [facility] Surgery [facility] [address] [place] [address] Paloma Vidales MD [address] [place] [address] [place] [address] Scheduled Procedures Name Priority Associated Diagnoses Date/Ti me COLONOSCOPY FLEXIBLE PROXIMA L DIAGNOSTIC Recall Encounter for screening colonoscopy Health Maintenance Due Date Last Done Comments DISCUSS TOBACCO CESSATION (REFER TO SMARTSET #[id number]) 1955 Cologuard 1998 Fecal Occult Blood Test [...] Documents on File Type Date Recorded 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
--- OUTSIDE RECORDS SUMMARY | 2024-05-25 16:18 | External Medical Summary ---
Author Name Unknown Address Unknown Organization [id number][place] [place] [facility] [address] [facility] [address] Laboratory Report Ordering Provider Test Date Status SUNDAR ROBLES 05/05/2024 14:50:48 Final Observation Date Value Abnormality Reference (Units ) Status HbA1C 05/05/2024 14:50:48 6.8 Above high normal 4. 0-5.6 (%) Final The use of HbA1c to monitor glycemic status is based on normal hemoglobin and HbA composition. This test should not be used in patients with abnormal hemoglobin that affects the half life of the red blood cell or the in vivo glycation rates. Glucose, estimated average 05/05/2024 14:50:48 148 Above high normal <126 (mg/dL) Godfrey chaves Performing Location [facility] [place] [address] [facility] [address]
--- OUTSIDE RECORDS SUMMARY | 2024-05-25 16:18 | External Medical Summary ---
Author Name Unknown Address Unknown Organization [id number]:[facility] [place] [address] [facility] [address] Laboratory Report Ordering Provider Test Date Status SUNDAR ROBLES 05/05/2024 14:50:48 Final Observation Date Value Abnormality Reference (Units ) Status SYNC LEUKOCYTES IN BLOOD BY AUTOMATED COUNT 05/05/2024 14:50:48 6.49 4.00-10.80 (K/uL) Final Segs 05/05/2024 14:50:48 71.6 40.0-75.0 (%) Final Lymphs % 05/05/2024 14:50:48 16.6 Below low normal 18.0-42.0 (%) Final Monos 05/05/2024 14:50:48 8.9 1.0-11.0 (%) Final Eosinophils 05/05/2024 14:50:48 0.9 0.0-6.0 (%) Final Basos 05/05/2024 14:50:48 0.5 0.0-2.0 (%) Final Immature Granulocyte, Percent 05/05/2024 14:50:48 1.5 0.0-2.0 (%) Final Absolute Segs 05/05/2024 14:50:48 4.64 1.80-7.70 (K/uL) Final Lymphs, absolute 05/05/2024 14:50:48 1.08 1.00-4.80 (K/ul) Final Monos, Abs 05/05/2024 14:50:48 0.58 0.00-1.10 (K/uL) Final Eos, Abs 05/05/2024 14:50:48 0.06 0.00-0.70 (K/uL) Final Basos, Abs 05/05/2024 14:50:48 0.03 0.00-0.20 (K/uL) Final Immature Granulocytes, Number 05/05/2024 14:50:48 0.10 0.00-0.20 (K/uL) Final Performing Location [facility] [place] [address] [facility] [address]
[2024-05-25] MEDS ORDERED: LORazepam 0.5 MG TAB PO PRN (19:39)
[2024-05-25] MEDS ORDERED: chlordiazePOXIDE ALCOHOL WITHDRAWL 25MG PO STA (19:51)
[2024-05-25] MEDS ORDERED: GABAPENTIN 400 MG CAP PO SCH (20:00)
[2024-05-25] MEDS: chlordiazePOXIDE HCl 25 MG CAP PO SCH (20:38)
[2024-05-25] MEDS: GABAPENTIN 600 MG TAB PO SCH (20:40)
[2024-05-25] MEDS ORDERED: NON-FORMULARY MEDICATION (Multivitamin tablet) PO SCH (21:00)
[2024-05-25] MEDS: FAMOTIDINE 20 MG TAB PO SCH (21:18)
[2024-05-26 06:08] LABS: Basophils # (auto) 0.01 K/uL (0.00-0.20); Basophils % (auto) 0.3 %; Eosinophils # (auto) 0.03 K/uL (0.00-0.50); Eosinophils % (auto) 0.9 %; Hematocrit (blood only) 32.8 % (37.0-47.0); Hemoglobin 10.9 g/dl (12.0-16.0); Immature Granulocytes # (auto) 0.01 K/uL (0.01-0.20); Immature Granulocytes % (auto) 0.3 %; Lymphocytes # (auto) 1.12 K/uL (1.20-3.40); Lymphocytes % (auto) 32.4 %; Mean Corpuscular Hemoglobin 35.5 pg (25.0-34.0); Mean Corpuscular Hgb Conc 33.2 g/dL (32.0-36.0); Mean Corpuscular Volume 106.8 fL (80.0-100.0); Mean Platelet Volume 11.8 fL (9.4-12.4); Monocytes # (auto) 0.34 K/uL (0.11-0.59); Monocytes % (auto) 9.8 %; Neutrophils # (auto) 1.95 K/uL (1.40-6.50); Neutrophils % (auto) 56.3 %; Platelet Count 65 K/uL (130-400); RDW Coefficient of Variation 13.2 % (11.5-14.5); RDW Standard Deviation 51.7 fL (36.4-46.3); Red Blood Count 3.07 M/uL (4.20-5.40); White Blood Count 3.46 K/ul (4.8-10.8)
[2024-05-26 06:19] LABS: Albumin Globulin Ratio 1.3 (0.9-2); Albumin Level 3.2 gm/dl (3.4-5.0); BUN Creatinine Ratio 8.1 (10-20); Calcium 8.3 mg/dl (8.6-10.3); Creatinine Clr Calc Pharmacy 59.3 ml/min; Globulin 2.4 gm/dl (2.5-4.0); Magnesium 2.1 mg/dl (1.7-2.4); Potassium 3.1 mmol/L (3.5-5.1); Total Protein 5.6 gm/dl (6.0-8.3)
[2024-05-26] MEDS ORDERED: FOLIC ACID 1 MG TAB PO SCH (09:00)
[2024-05-26] MEDS ORDERED: NON-FORMULARY MEDICATION (Fluticasone-Umeclidin-Vilanter [Trelegy Ellipta] 100-62.5-25 mcg INH SCH (09:00)
--- NOTE | 2024-05-26 09:05 | Electrocardiogram Report ---
Test Reason : Blood Pressure : */* mmHG Vent. Rate : 99 BPM Atrial Rate : 99 BPM P-R Int : 190 ms QRS Dur : 78 ms QT Int : 364 ms P-R-T Axes : 70 69 57 degrees QTcB Int : 467 ms Sinus rhythm with occasional Premature ventricular complexes Otherwise normal ECG When compared with ECG of 25-May-2024 09:09, No significant change was found Confirmed by Federico Acuña ([id number]) on 05/26/2024 9:04:51 AM Referred By: REFERRED SELF Confirmed By: Federico Acuña
[2024-05-26] MEDS: POTASSIUM CHLORIDE CRTAB 20 MEQ TABCR PO STA (09:11)
[2024-05-26] MEDS: UMECLIDINIUM/VILANTEROL 62.5/25MCG 7 PUFFS/INHALER INH SCH (09:12)
[2024-05-26] MEDS: FLUTICASONE FUROATE 100MCG 14 PUFFS/INHALER INH SCH (09:12)
[2024-05-26] MEDS: DULoxetine HCL 30 MG CAP PO SCH (09:13)
[2024-05-26] MEDS: FOLIC ACID 1 MG TAB PO SCH (09:13)
[2024-05-26] MEDS: PANTOprazole 40 MG TAB PO SCH (09:13)
[2024-05-26] MEDS: MULTIVITAMIN TAB PO SCH (09:13)
[2024-05-26] MEDS: THIAMINE HCL 100 MG TAB PO SCH (09:13)
--- NOTE | 2024-05-26 09:13 | Gastroenterology Progress Note ---
Date of Service May 26, 2024 Assessment & Plan (1) Cirrhosis, alcoholic: Plan: No acute liver related complications/decompensation. Discriminant function 4.8 so no role for corticosteroids. Continue to monitor for alcohol withdrawal along with vitamin supplementation with Folate & Thiamine. Trend LFTs & INR. Agree that alcohol cessation is very important in this clinical circumstance. No further acute GI recommendations at present. Please contact us with any pertinent clinical changes. Admission and Anticipated Discharge Date Admission Date: May 25, 2024 Supervising Physician Co-Signing Physician Notes I saw and examined this patient with our nurse practitioner and agree with her assessment and plan. Clinically improving. Liver enzymes trending downward. No signs of hepatic decompensation. Continue thiamine and folate and prophylaxis for alcohol withdrawal. She should follow-up with GI as an outpatient. Subjective Patient is a 68 yo female with cirrhosis and alcohol abuse. Discriminant function is 4.8. INR 1.2, AST 302, ALT 128, Alk phos 314, T bili 3.0. No jaundice. No abdominal pain. No acute GI issues at present. Review of Systems Gastrointestinal: no abdominal pain Physical Exam Constitutional: well developed Gastrointestinal (Abdomen): normal bowel sounds, soft, nontender, no hepatosplenomegaly Psychiatric: Orientation: alert and oriented x 3 Results & Data Results & Data Vital Signs (Past 12 Hours) Vital Signs Temp Pulse Pulse Resp BP Pulse Ox O2 Del Method 05/26/24 07:55 37.5 C 119 H 20 119/71 97 Nasal Cannula 05/26/24 03:55 37.8 C H 104 H 18 114/66 95 Nasal Cannula 05/26/24 03:23 100 H 18 96 Nasal Cannula 05/25/24 23:27 101 H 16 99 Nasal Cannula 05/25/24 23:14 37.5 C 102 H 16 144/76 H 97 Nasal Cannula 05/25/24 21:43 102 H O2 Flow Rate 05/26/24 07:55 3 05/26/24 03:55 3 05/26/24 03:23 3 05/25/24 23:27 3 05/25/24 23:14 3 05/25/24 21:43 Laboratory Results Laboratory Results - last 48 hr 05/25/24 05/25/24 05/25/24 09:20 09:27 09:52 WBC 3.83 L RBC 3.80 L Hgb 13.3 POC Hgb 13.6 Hct 39.2 POC Hct 40 MCV 103.2 H MCH 35.0 H MCHC 33.9 RDW Std Deviation 49.0 H RDW Coeff of Vale 12.9 Plt Count 86 L MPV 12.1 Immature Gran % (Auto) 0.5 Neut % (Auto) 62.7 Lymph % (Auto) 26.1 [place] % (Auto) 8.9 Eos % (Auto) 1.3 Baso % (Auto) 0.5 Neut # (Auto) 2.40 Lymph # (Auto) 1.00 L [place] # (Auto) 0.34 Eos # (Auto) 0.05 Baso # (Auto) 0.02 Immature Gran # (Auto) 0.02 PT 12.4 H INR 1.2 H APTT 25 PTT Ratio 0.9 D-Dimer 1580 H* POC Sodium 135 Sodium 135 L POC Potassium 3.6 Potassium 3.6 POC Chloride 95 L Chloride 93 L Carbon Dioxide 32 POC Total CO2 30 Anion Gap 10 POC Anion Gap 15.0 L POC BUN 9 BUN 10 Creatinine 0.79 POC Creatinine 0.8 Est Cr Clr Drug Dosing 67.0 eGFR 80.42 BUN/Creatinine Ratio 12.7 Glucose 152 H POC Glucose (other) 159 H Calcium 8.7 POC Ioniz Calcium Cristy 1.00 L Magnesium 1.3 L Total Bilirubin 3.6 H Direct Bilirubin 1.4 H AST 381 H ALT 163 H Alkaline Phosphatase 383 H Total Creatine Kinase 70 Troponin I High Sens 20.6 H B-Natriuretic Peptide Total Protein 6.7 Albumin 3.7 Globulin 3.0 Albumin/Globulin Ratio 1.2 Lipase TSH 5.442 H Free T4 1.16 Urine Color Urine Appearance Urine pH Ur Specific Shelley Urine Protein Urine Glucose (UA) Urine Ketones Urine Blood Urine Nitrite Urine Bilirubin Urine Urobilinogen Ur Leukocyte Esterase Urine WBC (Auto) Urine RBC (Auto) U Hyaline Cast (Auto) U Epithel Cells (Auto) Urine Bacteria (Auto) Urine Opiates Screen Ur Methadone, Qual Urine Fentanyl Screen Urine Barbiturates Ur Phencyclidine (PCP) U Amphetamin/Meth Scrn MDMA (Ecstasy) Screen U Benzodiazepines Scrn Ur Cocaine Metabolite U Marijuana (THC) Screen Ethyl Alcohol mg/dL Adenovirus (PCR) Not Detected Anaplasma Smear Babesia Smear B. pertussis DNA (PCR) Not Detected B.parapertussis DNA PCR Not Detected Lyme Disease Screen C. pneumoniae DNA (PCR) Not Detected Coronavirus OC43 (PCR) Not Detected Coronavirus HKU1 (PCR) Not Detected Coronavirus 229E (PCR) Not Detected SARS-CoV-2 (PCR) Not Detected Coronavirus NL63 (PCR) Not Detected Hep Bs Antigen Hepatitis A IgM Ab Hep B Core IgM Ab Hepatitis C Antibody Human Metapneumovir PCR Not Detected Influenza Type A (PCR) Not Detected Influenza Type B (PCR) Not Detected M. pneumoniae (PCR) Not Detected Parainfluenza 1 (PCR) Not Detected Parainfluenza 2 (PCR) Not Detected Parainfluenza 3 (PCR) Not Detected Parainfluenza 4 (PCR) Not Detected RSV (PCR) Not Detected Entero/Rhino (PCR) Not Detected 05/25/24 05/25/24 05/25/24 12:27 12:58 19:35 WBC RBC Hgb POC Hgb Hct POC Hct MCV MCH MCHC RDW Std Deviation RDW Coeff of Vale Plt Count MPV Immature Gran % (Auto) Neut % (Auto) Lymph % (Auto) [place] % (Auto) Eos % (Auto) Baso % (Auto) Neut # (Auto) Lymph # (Auto) [place] # (Auto) Eos # (Auto) Baso # (Auto) Immature Gran # (Auto) PT INR APTT PTT Ratio D-Dimer POC Sodium Sodium POC Potassium Potassium POC Chloride Chloride Carbon Dioxide POC Total CO2 Anion Gap POC Anion Gap POC BUN BUN Creatinine POC Creatinine Est Cr Clr Drug Dosing eGFR BUN/Creatinine Ratio Glucose POC Glucose (other) Calcium POC Ioniz Calcium Cristy Magnesium Total Bilirubin Direct Bilirubin AST ALT Alkaline Phosphatase Total Creatine Kinase Troponin I High Sens 20.3 H 20.5 H B-Natriuretic Peptide 49 Total Protein Albumin Globulin Albumin/Globulin Ratio Lipase 155 H TSH Free T4 Urine Color Yellow Urine Appearance Clear Urine pH 7.5 Ur Specific Shelley > 1.045 H Urine Protein Negative Urine Glucose (UA) Negative Urine Ketones Negative Urine Blood Negative Urine Nitrite Negative Urine Bilirubin Negative Urine Urobilinogen Negative Ur Leukocyte Esterase Trace H Urine WBC (Auto) 0-5 Urine RBC (Auto) 0-2 U Hyaline Cast (Auto) 0-2 U Epithel Cells (Auto) 0-2 Urine Bacteria (Auto) None Seen Urine Opiates Screen Neg Ur Methadone, Qual Neg Urine Fentanyl Screen Neg Urine Barbiturates Neg Ur Phencyclidine (PCP) Neg U Amphetamin/Meth Scrn Neg MDMA (Ecstasy) Screen Neg U Benzodiazepines Scrn Neg Ur Cocaine Metabolite Neg U Marijuana (THC) Screen Neg Ethyl Alcohol mg/dL < 10.0 Adenovirus (PCR) Anaplasma Smear See Comment Babesia Smear See Comment B. pertussis DNA (PCR) B.parapertussis DNA PCR Lyme Disease Screen Negative C. pneumoniae DNA (PCR) Coronavirus OC43 (PCR) Coronavirus HKU1 (PCR) Coronavirus 229E (PCR) SARS-CoV-2 (PCR) Coronavirus NL63 (PCR) Hep Bs Antigen Negative Hepatitis A IgM Ab NON-REACTIVE Hep B Core IgM Ab NON-REACTIVE Hepatitis C Antibody Negative Human Metapneumovir PCR Influenza Type A (PCR) Influenza Type B (PCR) M. pneumoniae (PCR) Parainfluenza 1 (PCR) Parainfluenza 2 (PCR) Parainfluenza 3 (PCR) Parainfluenza 4 (PCR) RSV (PCR) Entero/Rhino (PCR) 05/26/24 05:44 WBC 3.46 L RBC 3.07 L Hgb 10.9 L POC Hgb Hct 32.8 L POC Hct MCV 106.8 H MCH 35.5 H MCHC 33.2 RDW Std Deviation 51.7 H RDW Coeff of Vale 13.2 Plt Count 65 L MPV 11.8 Immature Gran % (Auto) 0.3 Neut % (Auto) 56.3 Lymph % (Auto) 32.4 [place] % (Auto) 9.8 Eos % (Auto) 0.9 Baso % (Auto) 0.3 Neut # (Auto) 1.95 Lymph # (Auto) 1.12 L [place] # (Auto) 0.34 Eos # (Auto) 0.03 Baso # (Auto) 0.01 Immature Gran # (Auto) 0.01 PT INR APTT PTT Ratio D-Dimer POC Sodium Sodium 139 POC Potassium Potassium 3.1 L POC Chloride Chloride 100 Carbon Dioxide 34 H POC Total CO2 Anion Gap 5 POC Anion Gap POC BUN BUN 7 Creatinine 0.86 POC Creatinine Est Cr Clr Drug Dosing 59.3 eGFR 72.63 BUN/Creatinine Ratio 8.1 L Glucose 155 H POC Glucose (other) Calcium 8.3 L POC Ioniz Calcium Cristy Magnesium 2.1 Total Bilirubin 3.0 H Direct Bilirubin AST 302 H ALT 128 H Alkaline Phosphatase 314 H Total Creatine Kinase Troponin I High Sens B-Natriuretic Peptide Total Protein 5.6 L Albumin 3.2 L Globulin 2.4 L Albumin/Globulin Ratio 1.3 Lipase TSH Free T4 Urine Color Urine Appearance Urine pH Ur Specific Shelley Urine Protein Urine Glucose (UA) Urine Ketones Urine Blood Urine Nitrite Urine Bilirubin Urine Urobilinogen Ur Leukocyte Esterase Urine WBC (Auto) Urine RBC (Auto) U Hyaline Cast (Auto) U Epithel Cells (Auto) Urine Bacteria (Auto) Urine Opiates Screen Ur Methadone, Qual Urine Fentanyl Screen Urine Barbiturates Ur Phencyclidine (PCP) U Amphetamin/Meth Scrn MDMA (Ecstasy) Screen U Benzodiazepines Scrn Ur Cocaine Metabolite U Marijuana (THC) Screen Ethyl Alcohol mg/dL Adenovirus (PCR) Anaplasma Smear Babesia Smear B. pertussis DNA (PCR) B.parapertussis DNA PCR Lyme Disease Screen C. pneumoniae DNA (PCR) Coronavirus OC43 (PCR) Coronavirus HKU1 (PCR) Coronavirus 229E (PCR) SARS-CoV-2 (PCR) Coronavirus NL63 (PCR) Hep Bs Antigen Hepatitis A IgM Ab Hep B Core IgM Ab Hepatitis C Antibody Human Metapneumovir PCR Influenza Type A (PCR) Influenza Type B (PCR) M. pneumoniae (PCR) Parainfluenza 1 (PCR) Parainfluenza 2 (PCR) Parainfluenza 3 (PCR) Parainfluenza 4 (PCR) RSV (PCR) Entero/Rhino (PCR) PG Care Time/CCT Total # of Minutes Spent Total Time Spent with Patient: Total time spent is greater than 50% in coordination of care (as documented) at patient's floor/unit and/or counseling patient: Coding Level of Care Code 68432 SUB INP/OBS CARE 3/50MIN Diagnoses Cirrhosis, alcoholic K70.30
[2024-05-26] MEDS: PSYLLIUM or GUAR GUM FIBER 4GM PACKET PO SCH (11:48)
--- NOTE | 2024-05-26 13:03 | Hospitalist Progress Note ---
Date of Service May 26, 2024 Assessment & Plan (1) Cirrhosis, alcoholic: (2) Abnormal LFTs: (3) COPD (chronic obstructive pulmonary disease): (4) Pneumonia: (5) Hypertension: (6) Hyperlipidemia: (7) Anxiety: (8) Depression: (9) Tobacco abuse: Plan Pt is a 68-year-old female with a past medical history of diastolic dysfunctionEF of 55%, COPD, HLD, multiple lung nodules, HTN, alcohol abuse, alcoholic cirrhosis, current tobacco use, GERD who presents to the ED on 05/25/24 with complaints of shortness of breath and palpitations with exertion. Palpitations Sinus Tachycardia Patient presenting with episodes of palpitations and shortness of breath at home. EKG on admission noting sinus rhythm with PVCs Echo with noted EF of 70%, mild LVH, grade 1 diastolic heart failure D-dimer elevated Chest CTA unremarkable for any noted PE Anaplasma/Lyme pending Continue to monitor on telemetry, noted patient is also undergoing alcohol withdrawal Dyspnea on exertion Hx of COPD Patient with subjective dyspnea States that she uses oxygen at baseline Chest x-ray noting no acute infection Chest CTA with no noted pneumonia but did note mild bronchial thickening and mucous plugging that had improved from prior we will start on Augmentin Percussive vest therapy as needed for noted mucous plugging Continue to monitor Duodenitis versus acute pancreatitis CT abdomen pelvis with concern for duodenitis versus acute pancreatitis abdomen tender on exam Lipase elevated at 155 Continue on PPI pantoprazole for possible duodenitis Started on IV fluids for possible acute pancreatitis GI consulted, appreciate recs Continue to monitor Hx alcohol abuse Alcoholic cirrhosis Transaminitis/acute alcoholic hepatitis AWSS protocol with Librium Liver enzymes elevated GI consulted, appreciate recs -Noted patient not a candidate for steroids at this time. Hold atorvastatin with elevated LFTs, replete electrolytes Continue home folic acid as well as thiamine Continue to monitor on telemetry as patient withdraws Hx anxiety: -Continue Cymbalta Thrombocytopenia Likely in setting of chronic alcohol use Continue to monitor Diet: HH DVT prophylaxis: SCDs, avoid AC with thrombocytopenia Dispo: PT OT ordered for further recommendations Admission and Anticipated Discharge Date Admission Date: May 25, 2024 Subjective patient was seen in the a.m. laying in bed a bit tremulous States that her shortness of breath had improved States that she does use oxygen at home however noting that her oxygen here had been removed she was told that "she did not need it" Noted some palpitations overnight Review of Systems Review of Systems: All systems reviewed & are unremarkable except as noted in Subjective Physical Exam Physical Exam: General: Alert, oriented Psych: Appropriate mood and affect Neuro: No gross deficits HEENT: NC/AT CV: RRR Resp: Breath sounds clear bilaterally, no increased effort of breathing Abdomen: Soft, nontender Extremities: No edema in lower extremities bilaterally. Results & Data Results & Data Vital Signs (Past 12 Hours) Vital Signs Temp Pulse Resp BP Pulse Ox Pulse Ox O2 Del Method 05/26/24 11:46 36.5 C 125 H 18 129/63 97 Nasal Cannula 05/26/24 11:06 94 05/26/24 08:00 Room Air 05/26/24 07:55 37.5 C 119 H 20 119/71 97 Nasal Cannula 05/26/24 03:55 37.8 C H 104 H 18 114/66 95 Nasal Cannula 05/26/24 03:23 100 H 18 96 Nasal Cannula O2 Del Method O2 Flow Rate 05/26/24 11:46 3 05/26/24 11:06 Room Air 05/26/24 08:00 05/26/24 07:55 3 05/26/24 03:55 3 05/26/24 03:23 3 Diagnostic Findings Chest X-Ray 05/25/24 09:02 XR chest 1V portable CLINICAL HISTORY: Dysrhythmia. COMPARISON STUDY: Chest CT April 19, 2024. Chest radiograph May 01, 2024. FINDINGS: Old right humeral neck fracture is incidentally noted. Lung volumes are normal. Minimal left basilar opacity is unchanged. There is no pneumothorax or pleural effusion. Cardiac size is normal. Mediastinal contours are normal. There is no evidence for pulmonary edema. IMPRESSION: No change in appearance of the chest. Minimal left basilar opacity, similar to prior exam. This favors a chronic infectious process when correlating with prior CT. ACT 112: Negative or not required by law. Electronically signed by: Cali Blankenship M.D. 05/25/2024 9:19 AM Abdomen/Pelvis CT 05/25/24 10:34 CT OF THE ABDOMEN AND PELVIS WITH CONTRAST CLINICAL HISTORY: Abnormal liver function tests COMPARISON STUDY: CT of the abdomen and pelvis January 24, 2020. MRI of the abdomen January 26, 2020. Right upper cord ultrasound September 02, 2022. TECHNIQUE: Following IV administration of 120 mL of Optiray, axial images of the abdomen and pelvis were obtained from the lung bases to the proximal femurs. Images were reviewed in the axial, sagittal, and coronal planes. IV contrast was administered without complication. Automated exposure control was utilized for the study. A dose lowering technique was utilized adhering to the principles of ALARA. FINDINGS: No pneumatosis, free air or portal venous gas is present. There is severe hepatic steatosis. The right hepatic lobe is enlarged and the left hepatic lobe is atrophied. The left portal vein is not well visualized. The main and right portal veins are patent. The right hepatic lobe abnormality on prior CT and MRI is not visualized. The spleen, adrenal glands, left kidney and pancreas are unremarkable. A water attenuation 4 cm right lower pole lesion represents a cyst. There is no biliary or pancreatic ductal dilatation. There is mild wall thickening of the second portion the duodenum with mild adjacent stranding. There is no extraluminal gas. There is no fluid collection. Colonic diverticulosis is present. There is no evidence for a bowel obstruction status post sigmoid resection. A cystic 4.4 cm left adnexal lesion has mildly decreased in size since CT of January 24, 2020. This remains indeterminate. There is no lymphadenopathy. IMPRESSION: 1. Severe hepatic steatosis. Enlargement of the right hepatic lobe and left hepatic lobe atrophy suggests cirrhosis. 2. Mild wall thickening of the second portion of the duodenum with adjacent stranding. This may reflect duodenitis. Acute pancreatitis is within the differential although considered less likely. 3. No bowel obstruction. Colonic diverticulosis. No evidence for acute diverticulitis. 4. 4.4 cm cystic left adnexal lesion which has mildly decreased in size since CT of January 24, 2020. This remains indeterminate. ACT 112: Negative or not required by law. Electronically signed by: Cali Blankenship M.D. 05/25/2024 11:11 AM Chest CTA 05/25/24 10:34 CT ANGIOGRAPHY OF THE CHEST, PULMONARY EMBOLUS PROTOCOL CLINICAL HISTORY: Shortness of breath. Tachycardia. COMPARISON STUDY: Chest CT April 19, 2024. Chest radiograph performed earlier today. TECHNIQUE: Following IV administration of 120 mL of Optiray, helical axial images of the chest were obtained utilizing the pulmonary embolus protocol. Maximal intensity projections and sagittal and coronal reformats were viewed on an independent 3D workstation. IV contrast was administered without complication. Automated exposure control was utilized for the study. A dose lowering technique was utilized adhering to the principles of ALARA. CT DOSE: 1747.17 mGy.cm FINDINGS: No pulmonary emboli are identified. There is no thoracic aortic dissection. Size of the heart is normal. There is no pericardial effusion. No enlarged axillary, mediastinal or hilar lymph nodes are present. There is no pneumothorax or pleural effusion. There are mild secretions within the airways. There is no consolidation to suggest pneumonia. Lingular opacity has improved since CT of April 19, 2024. A few small subpleural right middle lobe nodules are unchanged. These are likely benign. Mild bronchial wall thickening with mucus plugging within the lower lobes has improved since prior examination. The abdomen and pelvis CT will be reported separately. There is hepatic steatosis. IMPRESSION: 1. No pulmonary emboli identified. 2. No consolidation to suggest pneumonia. Interval improvement in lingular opacity since prior CT. 3. Mild bilateral lower lobe bronchial wall thickening and mucus plugging which has also improved. ACT 112: Negative or not required by law. Electronically signed by: Cali Blankenship M.D. 05/25/2024 11:00 AM (4) Pneumonia Laterality: left Lung location: unspecified part of lung Pneumonia type: due to unspecified organism Qualified Code(s): J18.9 - Pneumonia, unspecified organism
[2024-05-26] MEDS ORDERED: GABAPENTIN 400 MG CAP PO SCH (14:00)
[2024-05-26 15:28] LABS: Hepatitis A Antibody IgM NON-REACTIVE (NON-REACTIVE); Hepatitis B Core Antibody IgM NON-REACTIVE (NON-REACTIVE)
--- NOTE | 2024-05-26 16:18 | Electrocardiogram Report ---
Test Reason : Blood Pressure : */* mmHG Vent. Rate : 112 BPM Atrial Rate : 112 BPM P-R Int : 176 ms QRS Dur : 72 ms QT Int : 328 ms P-R-T Axes : 74 70 56 degrees QTcB Int : 447 ms Sinus tachycardia with occasional Premature ventricular complexes Otherwise normal ECG When compared with ECG of 01-May-2024 00:32, Fusion complexes are no longer Present Premature ventricular complexes are now Present Confirmed by Federico Acuña ([id number]) on 05/26/2024 4:18:28 PM Referred By: REFERRED SELF Confirmed By: Federico Acuña
[2024-05-26] MEDS: AMOXICILLIN/CLAVULANATE 875 MG TAB PO SCH (17:43)
[2024-05-26] MEDS: LACTATED RINGER'S 1,000 ML IV SCH (17:59)
[2024-05-26] MEDS: LEVALBUTEROL 1.25 MG/3 ML NEB NEB SCH (19:45)
[2024-05-26] MEDS: chlordiazePOXIDE HCl 25 MG CAP PO SCH (21:04)
[2024-05-27 06:21] LABS: Basophils # (auto) 0.02 K/uL (0.00-0.20); Basophils % (auto) 0.6 %; Eosinophils # (auto) 0.04 K/uL (0.00-0.50); Eosinophils % (auto) 1.2 %; Hematocrit (blood only) 31.1 % (37.0-47.0); Hemoglobin 10.3 g/dl (12.0-16.0); Immature Granulocytes # (auto) 0.01 K/uL (0.01-0.20); Immature Granulocytes % (auto) 0.3 %; Lymphocytes # (auto) 0.93 K/uL (1.20-3.40); Lymphocytes % (auto) 28.7 %; Mean Corpuscular Hemoglobin 35.6 pg (25.0-34.0); Mean Corpuscular Hgb Conc 33.1 g/dL (32.0-36.0); Mean Corpuscular Volume 107.6 fL (80.0-100.0); Monocytes # (auto) 0.29 K/uL (0.11-0.59); Neutrophils # (auto) 1.95 K/uL (1.40-6.50); Neutrophils % (auto) 60.2 %; Platelet Count 59 K/uL (130-400); RDW Coefficient of Variation 13.3 % (11.5-14.5); RDW Standard Deviation 52.5 fL (36.4-46.3); Red Blood Count 2.89 M/uL (4.20-5.40); White Blood Count 3.24 K/ul (4.8-10.8)
[2024-05-27 06:36] LABS: INR 1.1 (0.9-1.1); Prothrombin Time 11.7 Seconds (9.0-12.0)
[2024-05-27 06:41] LABS: Albumin Globulin Ratio 1.2 (0.9-2); Albumin Level 3.1 gm/dl (3.4-5.0); BUN Creatinine Ratio 9.8 (10-20); Bilirubin,Total 3.6 mg/dl (0.2-1.0); Calcium 8.5 mg/dl (8.6-10.3); Creatinine Clr Calc Pharmacy 62.6 ml/min; Globulin 2.5 gm/dl (2.5-4.0); Magnesium 1.7 mg/dl (1.7-2.4); Phosphorus 2.3 mg/dl (2.5-4.9); Potassium 3.9 mmol/L (3.5-5.1); Total Protein 5.6 gm/dl (6.0-8.3)
[2024-05-27 07:28] VITALS: BP 124/77; RESP 20; TEMP 98.6; O2SAT 91
[2024-05-27] MEDS: POT PHOSPHATE MONOBASIC W/ SOD TAB PO SCH (09:10)
--- NOTE | 2024-05-27 10:53 | Gastroenterology Progress Note ---
Date of Service May 27, 2024 Assessment & Plan (1) Cirrhosis, alcoholic: Plan: Patient is reportedly being discharged today. She can follow-up with GI in the outpatient setting for ongoing cirrhosis management and monitoring. Admission and Anticipated Discharge Date Admission Date: May 25, 2024 Supervising Physician Co-Signing Physician Notes I saw and examined this patient with our nurse practitioner and agree with her assessment and plan. Doing well hepatic function stable no signs of decompen sation. No signs of alcohol withdrawal. Tolerating regular diet. No further GI workup needed on this admission. Cam Paulino is a 68 yo female with cirrhosis. She denies any acute issues at the present time. She notes she is being discharged today. No abdominal pain, jaundice, or new concerns. Review of Systems Gastrointestinal: no abdominal pain Physical Exam Gastrointestinal (Abdomen): normal bowel sounds, soft, nontender, no hepatosplenomegaly Results & Data Results & Data Vital Signs (Past 12 Hours) Vital Signs Temp Pulse Pulse Resp BP Pulse Ox O2 Del Method 05/27/24 07:30 87 05/27/24 07:30 Room Air 05/27/24 07:27 37.0 C 96 H 20 124/77 91 Room Air 05/27/24 07:15 93 H 19 95 Room Air 05/27/24 02:34 37.4 C 93 H 16 124/74 90 Room Air 05/26/24 23:13 102 H 05/26/24 23:11 37.3 C 88 18 135/61 90 Room Air PG Care Time/CCT Total # of Minutes Spent Total Time Spent with Patient: Total time spent is greater than 50% in coordination of care (as documented) at patient's floor/unit and/or counseling patient: Coding Level of Care Code 24815 SUB INP/OBS CARE 2/35MIN Diagnoses Cirrhosis, alcoholic K70.30
--- NOTE | 2024-05-27 11:59 | Discharge Summary ---
Discharge Summary Date of Service May 27, 2024 Principal Dx & Hospital Course #1 = Principal Diagnosis (1) Cirrhosis, alcoholic: (2) Abnormal LFTs: (3) COPD (chronic obstructive pulmonary disease): (4) Pneumonia: (5) Hypertension: (6) Hyperlipidemia: (7) Anxiety: (8) Depression: (9) Tobacco abuse: Plan Pt is a 68-year-old female with a past medical history of diastolic dysfunctionEF of 55%, COPD, HLD, multiple lung nodules, HTN, alcohol abuse, alcoholic cirrhosis, current tobacco use, GERD who presents to the ED on 05/25/24 with complaints of shortness of breath and palpitations with exertion. Palpitations Sinus Tachycardia Patient presenting with episodes of palpitations and shortness of breath at home. EKG on admission noting sinus rhythm with PVCs Echo with noted EF of 70%, mild LVH, grade 1 diastolic heart failure D-dimer elevated Chest CTA unremarkable for any noted PE Lyme screen unremarkable, anaplasma smear negative Noted patient is also undergoing alcohol withdrawal PCP followup Dyspnea on exertion Hx of COPD Patient with subjective dyspnea States that she uses oxygen at baseline Chest x-ray noting no acute infection Chest CTA with no noted pneumonia but did note mild bronchial thickening and mucous plugging that had improved from prior Started on Augmentin for bronchial thickening/bronchitis but pt refused. Percussive vest therapy for mucous plugging was considered PCP followup Duodenitis versus acute pancreatitis CT abdomen pelvis with concern for duodenitis versus acute pancreatitis abdomen tender on exam Lipase elevated at 155 Continue on PPI pantoprazole for possible duodenitis Started on IV fluids for possible acute pancreatitis GI consulted, appreciate recs PCP and GI follow up after discharge Hx alcohol abuse Alcoholic cirrhosis Transaminitis/acute alcoholic hepatitis AWSS protocol with Librium Liver enzymes elevated GI consulted, appreciate recs -Noted patient not a candidate for steroids at this time. Hold atorvastatin with elevated LFTs, repleted electrolytes -Continue home folic acid as well as thiamine Pt stable on day of discharge Alcohol cessation encouraged Discharged home to follow up with GI and pcp Hx anxiety: -Continue Cymbalta Thrombocytopenia Likely in setting of chronic alcohol use PCP followup for continued monitoring and evaluation. Notes For Next Care Provider please ensure followup with GI Encourage alcohol cessation Continue to monitor platelet level Medication Changes From Visit None Admission HPI Per Admitting Provider The patient is a 68-year-old female with a past medical history of diastolic dysfunctionEF of 55%, COPD, HLD, multiple lung nodules, HTN, alcohol abuse, alcoholic cirrhosis, current tobacco use, GERD who presents to the ED on 05/25/2024 with complaints of shortness of breath and palpitations with exertion. She also reports feeling progressively weaker and needing more help at home. The patient reports ongoing heart palpitations with movement and some increased weakness over the past few weeks. The patient still admits to currently smoking 5 cigarettes a day and has 3 glasses of vodka on a daily basis. Her last drink was yesterday. On exam, the patient's shortness of breath is mildly improved. She denies any chest pain/fever/nausea/vomiting/diarrhea. Patient was recently admitted on 04/20/2023 with similar symptoms. At this time, patient also reported increasing shortness of breath and a productive cough. At this time her chest CT was negative. But there was a groundglass consolidation and peribronchial thickening that could indicate infectious/inflammatory bronchitis/pneumonitis. At this time, the patient received nebs Rocephin Zithromax and prednisone. At this time, after receiving treatment she was clinically improved. She was advised to quit smoking and discharged back home on 3 L On arrival to the ER her labs are remarkable for WBC 3, platelets 86, D-dimer 1580, INR 1.2, anion gap 15, glucose 152, mag 1.3, total bilirubin 3.6, AST 381, ALT 163 alk phos 383 Chest x-ray was negative for any changes A/P CT showed possible duodenitis and cirrhosis Chest CTA was negative for any PE or consolidations and showed improvement from recent hospitalization The patient be admitted for further management and workup of heart palpitations Admission Exam Per Admitting Provider Constitutional: WD/WN, vitals as above Eyes: PERRL, conjunctivae normal, anicteric sclerae ENMT: external ear and nose normal, oropharynx normal Neck: trachea midline, no thyromegaly Respiratory: normal respiratory effort, lungs clear to auscultation (Intermittent wheezing bilaterally) Cardiovascular: RRR, no murmur, no edema Gastrointestinal (Abdomen): normal bowel sounds, soft, nontender, no hepatosplenomegaly Musculoskeletal: no cyanosis or clubbing, extremities motor strength 5/5 Skin: no rashes, warm and dry Neurologic: PERRL, EOMI, accommodation nl, no face palsy, no dysarthria Psychiatric: A+Ox3, euthymic affect Lymphatic: no cervical or axillary lymphadenopathy Discharge Exam General: Alert, oriented Psych: Appropriate mood and affect HEENT: NC/AT CV: RRR Resp: Breath sounds clear bilaterally, no increased effort of breathing Abdomen: Soft, nontender Extremities: No edema in lower extremities bilaterally. Updated Medication List Medication Instructions Recorded Confirmed Type cholecalciferol (vitamin D3) 25 1,000 units PO Q2D 04/02/18 05/25/24 History mcg (1,000 unit) capsule (Vitamin D3) lorazepam 1 mg tablet 0.5 - 1 mg PO TID PRN Anxiety 04/02/18 05/25/24 History folic acid 1 mg tablet 1 mg PO DAILY #30 tabs 04/13/18 05/25/24 Rx thiamine HCl (vitamin B1) 100 mg 100 mg PO DAILY #30 tabs 04/13/18 05/25/24 Rx tablet albuterol sulfate 90 mcg/actuation 2 puff inhalation Q4H PRN 01/24/20 05/25/24 History aerosol inhaler Shortness Of Breath Or Wheezing magnesium 250 mg tablet 125 mg PO DAILY 01/24/20 05/25/24 History fluticasone fur. 100 mcg-umeclid 1 inh inhalation DAILY 08/30/22 05/25/24 History 62.5 mcg-vilant 25 mcg inhalat.powder (Trelegy Ellipta) atorvastatin 20 mg tablet 20 mg PO QAM 04/19/24 05/25/24 History calcium carbonate 500 mg PO HS 04/19/24 05/25/24 History duloxetine 30 mg capsule,delayed 30 mg PO QAM 04/19/24 05/25/24 History release gabapentin 600 mg tablet 600 mg PO BID 04/19/24 05/25/24 History metronidazole 1 % topical gel 1 applic topical DAILY PRN 04/19/24 05/25/24 History (Metrogel) Perioral Dermatitis multivitamin 1 tab PO HS 04/19/24 05/25/24 History pantoprazole 20 mg tablet,delayed 20 mg PO QAM 04/19/24 05/25/24 History release levalbuterol HCl 1.25 mg/3 mL 1.25 mg (3 mL) NEB Q6R PRN 04/21/24 05/25/24 Rx solution for nebulization Shortness Of Breath Or Wheezing #50 mL famotidine 20 mg tablet 20 mg PO HS 05/25/24 05/25/24 History Hospital Stay Data Consultations 05/25/24 11:30 ED Decision to Admit Stat 05/25/24 12:04 Consult Gastroenterology Routine Diagnostic Imagining Performed 05/25/24 10:34 CT abd pelvis IV con only Stat CT angio chest PE protocol Stat Chest X-Ray 05/25/24 09:02 XR chest 1V portable CLINICAL HISTORY: Dysrhythmia. COMPARISON STUDY: Chest CT April 19, 2024. Chest radiograph May 01, 2024. FINDINGS: Old right humeral neck fracture is incidentally noted. Lung volumes are normal. Minimal left basilar opacity is unchanged. There is no pneumothorax or pleural effusion. Cardiac size is normal. Mediastinal contours are normal. There is no evidence for pulmonary edema. IMPRESSION: No change in appearance of the chest. Minimal left basilar opacity, similar to prior exam. This favors a chronic infectious process when correlating with prior CT. ACT 112: Negative or not required by law. Electronically signed by: Cali Blankenship M.D. 05/25/2024 9:19 AM Abdomen/Pelvis CT 05/25/24 10:34 CT OF THE ABDOMEN AND PELVIS WITH CONTRAST CLINICAL HISTORY: Abnormal liver function tests COMPARISON STUDY: CT of the abdomen and pelvis January 24, 2020. MRI of the abdomen January 26, 2020. Right upper cord ultrasound September 02, 2022. TECHNIQUE: Following IV administration of 120 mL of Optiray, axial images of the abdomen and pelvis were obtained from the lung bases to the proximal femurs. Images were reviewed in the axial, sagittal, and coronal planes. IV contrast was administered without complication. Automated exposure control was utilized for the study. A dose lowering technique was utilized adhering to the principles of ALARA. FINDINGS: No pneumatosis, free air or portal venous gas is present. There is severe hepatic steatosis. The right hepatic lobe is enlarged and the left hepatic lobe is atrophied. The left portal vein is not well visualized. The main and right portal veins are patent. The right hepatic lobe abnormality on prior CT and MRI is not visualized. The spleen, adrenal glands, left kidney and pancreas are unremarkable. A water attenuation 4 cm right lower pole lesion rep resents a cyst. There is no biliary or pancreatic ductal dilatation. There is mild wall thickening of the second portion the duodenum with mild adjacent stranding. There is no extraluminal gas. There is no fluid collection. Colonic diverticulosis is present. There is no evidence for a bowel obstruction status post sigmoid resection. A cystic 4.4 cm left adnexal lesion has mildly decreased in size since CT of January 24, 2020. This remains indeterminate. There is no lymphadenopathy. IMPRESSION: 1. Severe hepatic steatosis. Enlargement of the right hepatic lobe and left hepatic lobe atrophy suggests cirrhosis. 2. Mild wall thickening of the second portion of the duodenum with adjacent stranding. This may reflect duodenitis. Acute pancreatitis is within the differential although considered less likely. 3. No bowel obstruction. Colonic diverticulosis. No evidence for acute diverticulitis. 4. 4.4 cm cystic left adnexal lesion which has mildly decreased in size since CT of January 24, 2020. This remains indeterminate. ACT 112: Negative or not required by law. Electronically signed by: Cali Blankenship M.D. 05/25/2024 11:11 AM Chest CTA 05/25/24 10:34 CT ANGIOGRAPHY OF THE CHEST, PULMONARY EMBOLUS PROTOCOL CLINICAL HISTORY: Shortness of breath. Tachycardia. COMPARISON STUDY: Chest CT April 19, 2024. Chest radiograph performed earlier today. TECHNIQUE: Following IV administration of 120 mL of Optiray, helical axial images of the chest were obtained utilizing the pulmonary embolus protocol. Maximal intensity projections and sagittal and coronal reformats were viewed on an independent 3D workstation. IV contrast was administered without complication. Automated exposure control was utilized for the study. A dose lowering technique was utilized adhering to the principles of ALARA. CT DOSE: 1747.17 mGy.cm FINDINGS: No pulmonary emboli are identified. There is no thoracic aortic dissection. Size of the heart is normal. There is no pericardial effusion. No enlarged axillary, mediastinal or hilar lymph nodes are present. There is no pneumothorax or pleural effusion. There are mild secretions within the airways. There is no consolidation to suggest pneumonia. Lingular opacity has improved since CT of April 19, 2024. A few small subpleural right middle lobe nodules are unchanged. These are likely benign. Mild bronchial wall thickening with mucus plugging within the lower lobes has improved since prior examination. The abdomen and pelvis CT will be reported separately. There is hepatic steatosis. IMPRESSION: 1. No pulmonary emboli identified. 2. No consolidation to suggest pneumonia. Interval improvement in lingular opacity since prior CT. 3. Mild bilateral lower lobe bronchial wall thickening and mucus plugging which has also improved. ACT 112: Negative or not required by law. Electronically signed by: Cali Blankenship M.D. 05/25/2024 11:00 AM Discharge Instructions Given to Patient (Per Discharging Provider) Malika, You are being discharged home. We recommend that you do your best to try to stay away from alcohol. Please keep close follow-up with your production mechanic after discharge. Please also keep close follow up with your primary care provider after discharge. Please do not hesitate to come back to the emergency room if your symptoms worsen or return. It was a pleasure taking care of you while you were here. Total Time Total Time Spent Total Time Spent (In Minutes): 60
--- NOTE | 2024-05-27 12:36 | Electrocardiogram Report ---
Test Reason : Blood Pressure : */* mmHG Vent. Rate : 93 BPM Atrial Rate : 93 BPM P-R Int : 170 ms QRS Dur : 74 ms QT Int : 356 ms P-R-T Axes : 73 66 54 degrees QTcB Int : 442 ms Sinus rhythm with Premature atrial complexes Otherwise normal ECG When compared with ECG of 26-May-2024 04:53, Premature ventricular complexes are no longer Present Premature atrial complexes are now Present Confirmed by Federico Acuña ([id number]) on 05/27/2024 12:36:15 PM Referred By: REFERRED SELF Confirmed By: Federico Acuña
[2024-05-27 12:42] VITALS: PULSE 96
[2024-05-27] MEDS ORDERED: GABAPENTIN 400 MG CAP PO SCH (18:00)
[2024-05-28 20:11] LABS: Babesia microti DNA Not Detected (Not Detected)
[2024-05-29] MEDS ORDERED: chlordiazePOXIDE HCl 5 MG CAP PO SCH (02:00)
[2024-05-29] MEDS ORDERED: GABAPENTIN 400 MG CAP PO SCH (06:00)
== END 2024-05-27 14:15 | disposition home or self-care (01) | DRG 432 ==
LOC: ED 08:58 → SUATTDRO 11:57 → 2S 11:57